=== PATIENT | male | born 1955 | race Caucasian/White ===

== ENCOUNTER 2020-06-14 19:30 | Emergency (ER) | payer BC, SELFPAY ==
[2020-06-14 19:31] VITALS: BP 174/102; PULSE 67; RESP 15; TEMP 36.3; O2SAT 97; BMI 29.2
--- NOTE | 2020-06-14 20:00 | ED.VIS.GEN ---
History of Present Illness Chief Complaint: Hypertension Informant: Patient, Significant Other Onset: Days - several Context: Gradual Onset Timing: Intermittent Quality: SBP 201 today Associated Symptoms: none Narrative: Patient has had a history of hypertension, and was on losartan. He was seen about 3 weeks ago at PCP, his pressure was elevated some, so losartan was increased to 100 mg daily. He has been compliant with that. This past week, he did some lifting and injured his low back, and was seen at an urgent care. They did x-rays, the states that they saw something that looked narrowed, so they placed him on prednisone and a muscle relaxer. He has had no sciatica symptoms or radiation into his lower extremities, or saddle anesthesia/urinary retention or incontinence/bowel retention or incontinence. His pressure was around normal for him when he was there at urgent care, a little elevated the next day, yesterday states she was at work and did not check it, and then today it was 201 systolic. They were advised by a telemedicine visit to come to the emergency room for further evaluation. He has had no new symptoms. - Past Medical History (1) Hypertension Status: Chronic Past Medical History - Allergies and Home Meds Allergies/Adverse Reactions: Allergies lisinopril Allergy (Verified 06/14/20 19:36) PT UNSURE OF REACTION Primary Care Physician: Manan Ricci III, MD [Primary Care Provider] - 2 Days Lives: With Family Smoking Status: Former smoker Review of Systems General: Denies: Chills, Fever, Sweats Eyes: Denies: Visual changes - bilaterally, Diplopia ENT: Denies: Rhinorrhea, Sore throat Cardiovascular: Denies: Chest pain, Palpitations Respiratory: Denies: Dyspnea, Cough, Dyspnea on exertion Gastrointestinal: Reports: Abdominal pain - Occasional right side discomfort/twisting for several weeks, intermittent, not present currently. Denies: Nausea, Vomiting, Diarrhea, Melena, Hematochezia Genitourinary: Reports: - - Normal urine output recently without any changes. Denies: Dysuria, Hematuria, Frequency Musculoskeletal: Reports: Back pain. Denies: Swelling, Extremity Pain Skin: Denies: Rash, Wounds Neurological: Denies: Headache, Weakness, Numbness Physical Exam Vital Signs/Narrative: Vital Signs Temp Pulse Resp BP Pulse Ox 06/14/20 19:31 97.4 F L 67 15 174/102 H 97 Inital Vital Signs reviewed: Yes General: Well nourished, Well developed, No Acute Distress Head: Normocephalic, Atraumatic Eyes: Perrl, EOMI ENT: Moist mucous membranes, No rhinorrhea Neck: Supple, Nontender Cardiovascular: Regular rate, Regular rhythm, No murmurs Respiratory: No distress, CTA bilaterally, Chest nontender Abdomen: Soft, Nontender, Nondistended, Normal bowel sounds Back: Normal Inspection, - - Tender right upper lumbar paraspinal musculature, normal range of motion but painful to flex forward. Negative for: Spinal tenderness Extremities: Nontender, No edema. Negative for: Calf Tenderness Skin: Normal color, No rash, No Trauma Neurological: Alert, Oriented x3, Cranial nerves II-XII grossly intact, Normal Strength, Normal Sensation, Normal Gait Psychological: Normal affect, Normal Mood Diagnostic/Tx/Re-eval - Medical Decision Making Patient does not have a history of renal issues, I do not think that he needs to have emergent testing given the history, he has had normal urine output, and I suspect his blood pressure is elevated as a side effect of 1 or more of the recent prescriptions he was given. I do not see an indication for prednisone in this patient given that he has had no symptoms of sciatica, and I recommended he discontinue it immediately since he is only been on it for a couple of days and can safely discontinue it. Seen with the [facility]. He is having no symptoms of muscle spasms in his back. He was initially taking Aleve, it was not helping much and he was getting more help from ibuprofen. He has no symptoms of cauda equina syndrome or sciatica. Here, he was given clonidine 0.2 mg, on reevaluation he is down to the 160s and still asymptomatic. I feel he can be sent home with an as needed prescription for clonidine, tramadol as needed for pain, and close outpatient follow-up with his PCP. Discussed at length with him and his and they are comfortable with this plan. ED Disposition - Plan for ED Patient: Disposition: Home or Assisted Living Diagnosis: Single episode of hypertension, Acute lumbar myofascial strain Instructions: ED Hypertension Established Prescriptions: Clonidine HCl 0.2 mg PO Q8H PRN #15 tab PRN Reason: SBP>175 Prescription Printed traMADol [Ultram] 50 mg PO Q4H PRN PRN #15 tab PRN Reason: pain Prescription Printed Referrals: Manan Ricci III, MD [Primary Care Provider] - 2 Days Additional Instructions: Discontinue the prednisone and Flexeril. You may continue using ibuprofen as needed, but limit your dosing to either 400 mg 3 times daily or 600 mg twice daily as needed.
[2020-06-14] MEDS: cloNIDine HCl 0.1 MG Tablet 0.2 MG PO (20:14)
[2020-06-14 21:30] VITALS: BP 171/96; PULSE 60; RESP 16; O2SAT 98
[2020-06-14 22:28] VITALS: BP 166/102; O2SAT 98
[2020-06-14 22:40] VITALS: BP 162/94; PULSE 76; RESP 16; O2SAT 97
[2020-06-14] MEDS: traMADol 50 MG Tablet PO (23:16)
[2020-06-14 23:20] VITALS: BP 162/98; PULSE 53; RESP 16; O2SAT 98
== END 2020-06-14 23:21 | disposition home or self-care (01) ==
LOC: ED 20:06
PROVIDERS: Emergency Provider Emergency Medicine; PCP Family Medicine
DX: I10 Essential (primary) hypertension (principal); S39.012D Strain of muscle, fascia and tendon of lower back, subsequent encounter; X50.9XXD Other and unspecified overexertion or strenuous movements or postures, subsequent encounter; Z87.891 Personal history of nicotine dependence; Z88.8 Allergy status to other drugs, medicaments and biological substances
CPT/HCPCS: 99283

== ENCOUNTER 2021-01-28 16:41 | Outpatient (RCR) | payer BC, SELFPAY ==
[2021-01-28] MEDS: COVID-19 VACC, MRNA(PFIZER)/PF 30 MCG/0.3 ML SYRINGE IM (18:10)
[2021-02-18] MEDS: COVID-19 VACC, MRNA(PFIZER)/PF 30 MCG/0.3 ML SYRINGE IM (17:16)
== END 2021-01-28 23:59 ==
LOC: IMMUN 16:41
PROVIDERS: PCP Family Medicine; Referring Provider Family Medicine; Visit Provider Family Medicine
DX: Z23 Encounter for immunization (principal)
CPT/HCPCS: 0001A; 0002A; 91300

== ENCOUNTER → 2021-04-21 09:01 | Outpatient (CLI) | payer MEDICARE, SELFPAY ==
[2021-04-21 10:26] LABS: Anion Gap 4 (5-15); BUN 17 mg/dL (7-18); BUN/Creat Ratio 12.1 RATIO (10-20); Calcium,Total 8.8 mg/dL (8.5-10.1); Chloride 106 mmol/L (98-107); Cholesterol 158 mg/dL (200); Creatinine, Serum 1.41 mg/dL (0.70-1.30); EST Glomerular Filtration Rate 53 mL/min (>60); Est Glom Filt Rate - Afr Amer 65 mL/min (>60); Glucose 112 mg/dL (74-106); High Density Lipoprotein 33 mg/dL; PSA,Total - Annual Screen 0.21 ng/mL (0.00-4.00); Potassium 4.4 mmol/L (3.5-5.1); Sodium Level 139 mmol/L (136-145); Triglycerides 249 mg/dL; Very Low Density Lipoprotein 50 mg/dL (5-40)
== END ==
PROVIDERS: PCP Family Medicine; Referring Provider Family Medicine; Visit Provider Family Medicine
DX: I10 Essential (primary) hypertension (principal)
CPT/HCPCS: 36415; 80048; 80061; 84153; G0103

== ENCOUNTER → 2021-08-11 15:36 | Outpatient (CLI) | payer BC, SELFPAY ==
--- NOTE | 2021-08-11 15:38 | RAD_ITS ---
STUDY: X-RAY - LEFT FOOT CLINICAL: Male, 65 years old. Pain and swelling TECHNIQUE: 3 view(s) of the foot. COMPARISON: None. FINDINGS: Normal talus and tarsal bones. Calcaneal spurs Normal visualized subtalar, talonavicular, calcaneocuboid, tarsal and tarsometatarsal articulations. Normal metatarsi. There is degenerative arthrosis of the metatarsophalangeal joint of the hallux . Normal tibial and fibular sesamoid bones. Normal interphalangeal joint of the great toe. Normal phalanges of the great toe. Normal second through fifth metatarsophalangeal joints. Mild PIP and PIP joint arthrosis The soft tissue structures are unremarkable. RAD/Foot min 3 Views IMPRESSION: Calcaneal spurs along with first MTP joint and PIP and DIP joint arthrosis, no demonstrated fracture or suspicious osseous lesion Electronically Signed: Bimal Raygoza MD at 12:12 EDT , Service support ,
== END ==
PROVIDERS: PCP Family Medicine; Referring Provider Podiatrist; Visit Provider Podiatrist
DX: M84.375A Stress fracture, left foot, initial encounter for fracture (principal)
CPT/HCPCS: 73630

== ENCOUNTER → 2021-10-13 09:47 | Outpatient (CLI) | payer MEDICARE, SELFPAY ==
[2021-10-13 13:03] LABS: ALB/GLOB Ratio 0.9 RATIO (0.9-2.4); AST(SGOT) 18 U/L (15-37); Alanine Aminotransfer ALT/SGPT 41 U/L (16-61); Albumin, Serum 3.9 g/dL (3.2-5.0); Alkaline Phosphatase 59 U/L (45-117); Anion Gap 5 (5-15); BUN 22 mg/dL (7-18); BUN/Creat Ratio 15.8 RATIO (10-20); Calcium,Total 9.2 mg/dL (8.5-10.1); Chloride 105 mmol/L (98-107); Cholesterol 121 mg/dL (200); Creatinine, Serum 1.39 mg/dL (0.70-1.30); EST Glomerular Filtration Rate 54 mL/min (>60); Est Glom Filt Rate - Afr Amer 66 mL/min (>60); Globulin 4.2 g/dL (2.2-4.2); Glucose 108 mg/dL (74-106); High Density Lipoprotein 31 mg/dL; Potassium 4.3 mmol/L (3.5-5.1); Protein, Total 8.1 g/dL (6.4-8.2); Sodium Level 137 mmol/L (136-145); Triglycerides 210 mg/dL; Very Low Density Lipoprotein 42 mg/dL (5-40)
== END ==
PROVIDERS: PCP Family Medicine; Referring Provider Family Medicine; Visit Provider Family Medicine
DX: E78.1 Pure hyperglyceridemia (principal); I10 Essential (primary) hypertension
CPT/HCPCS: 36415; 80053; 80061

== ENCOUNTER → 2022-04-26 | Outpatient (CLI) | payer MEDICARE, SELFPAY ==
[2022-04-26 12:41] LABS: Anion Gap 3 (5-15); BUN 19 mg/dL (7-18); BUN/Creat Ratio 13.9 RATIO (10-20); Calcium,Total 9.2 mg/dL (8.5-10.1); Chloride 110 mmol/L (98-107); Creatinine, Serum 1.37 mg/dL (0.70-1.30); EST Glomerular Filtration Rate 55 mL/min (>60); Est Glom Filt Rate - Afr Amer 67 mL/min (>60); Glucose 108 mg/dL (74-106); Potassium 4.5 mmol/L (3.5-5.1); Sodium Level 140 mmol/L (136-145)
== END | disposition home or self-care (01) ==
LOC: MTLAB 10:40
PROVIDERS: PCP Family Medicine; Referring Provider Family Medicine; Visit Provider Family Medicine
DX: Z00.00 Encounter for general adult medical examination without abnormal findings (principal)
CPT/HCPCS: 36415; 80048

== ENCOUNTER → 2022-10-26 | Outpatient (CLI) | payer MEDICARE, SELFPAY ==
[2022-10-26 11:00] LABS: ALB/GLOB Ratio 1.1 RATIO (0.9-2.4); AST(SGOT) 26 U/L (15-37); Alanine Aminotransfer ALT/SGPT 47 U/L (16-61); Alkaline Phosphatase 62 U/L (45-117); BUN 20 mg/dL (7-18); BUN/Creat Ratio 14.2 RATIO (10-20); Calcium,Total 9.2 mg/dL (8.5-10.1); Creatinine, Serum 1.41 mg/dL (0.70-1.30); EST Glomerular Filtration Rate 53 mL/min (>60); Est Glom Filt Rate - Afr Amer 64 mL/min (>60); Globulin 3.8 g/dL (2.2-4.2); Glucose 110 mg/dL (74-106); Protein, Total 7.8 g/dL (6.4-8.2)
[2022-10-26 11:01] LABS: Anion Gap 8 (5-15); Chloride 105 mmol/L (98-107); Cholesterol 156 mg/dL (200); High Density Lipoprotein 30 mg/dL; Potassium 4.7 mmol/L (3.5-5.1); Sodium Level 139 mmol/L (136-145); Triglycerides 302 mg/dL; Very Low Density Lipoprotein 60 mg/dL (5-40)
== END | disposition home or self-care (01) ==
LOC: MFPLAB 09:05
PROVIDERS: PCP Family Medicine; Referring Provider Family Medicine; Visit Provider Family Medicine
DX: E78.1 Pure hyperglyceridemia (principal)
CPT/HCPCS: 36415; 80053; 80061

== ENCOUNTER → 2023-05-01 | Outpatient (CLI) | payer MEDICARE, SELFPAY ==
[2023-05-01 11:11] LABS: AST(SGOT) 26 U/L (15-37); Alanine Aminotransfer ALT/SGPT 37 U/L (16-61); Albumin, Serum 3.8 g/dL (3.2-5.0); Alkaline Phosphatase 54 U/L (45-117); Anion Gap 2 (5-15); BUN 24 mg/dL (7-18); BUN/Creat Ratio 17.3 RATIO (10-20); Calcium,Total 8.7 mg/dL (8.5-10.1); Chloride 109 mmol/L (98-107); Cholesterol 116 mg/dL (200); Creatinine, Serum 1.39 mg/dL (0.70-1.30); EST Glomerular Filtration Rate 54 mL/min (>60); Est Glom Filt Rate - Afr Amer 65 mL/min (>60); Globulin 3.7 g/dL (2.2-4.2); Glucose 113 mg/dL (74-106); High Density Lipoprotein 30 mg/dL; PSA,Total - Annual Screen 0.23 ng/mL (0.00-4.00); Potassium 4.3 mmol/L (3.5-5.1); Protein, Total 7.5 g/dL (6.4-8.2); Sodium Level 137 mmol/L (136-145); Triglycerides 209 mg/dL; Very Low Density Lipoprotein 42 mg/dL (5-40)
== END | disposition home or self-care (01) ==
LOC: MTLAB 09:04
PROVIDERS: PCP Family Medicine; Referring Provider Family Medicine; Visit Provider Family Medicine
DX: I10 Essential (primary) hypertension (principal); E78.1 Pure hyperglyceridemia; Z12.5 Encounter for screening for malignant neoplasm of prostate
CPT/HCPCS: 36415; 80053; 80061; 84153; G0103

== ENCOUNTER 2023-09-05 23:47 | Emergency (ER) | payer MEDICARE, SELFPAY ==
[2023-09-05 23:49] VITALS: BP 150/78; PULSE 61; RESP 18; TEMP 36.4; O2SAT 98; BMI 29.8
[2023-09-06 00:18] VITALS: O2SAT 98
--- NOTE | 2023-09-06 00:18 | RAD_ITS ---
INDICATION: chest pain EXAMINATION/TECHNIQUE: X-RAY - XR Chest 1 View AP portable. 12:29 AM COMPARISON: None FINDINGS: LINES/DEVICES: None. LUNGS: No consolidation. Minimal reticular opacities in the lung bases. No pneumothorax. MEDIASTINUM: Unremarkable. CARDIAC SILHOUETTE: Not enlarged. BONES AND SOFT TISSUES: No acute abnormalities. RAD/Chest 1 View (Portable) IMPRESSION: Bibasilar subsegmental atelectasis versus scarring. Electronically Signed: Thalia Duenas MD at 0:41 EDT ,
--- NOTE | 2023-09-06 00:19 | EDS_ITS ---
HPI History of Present Illness Chief Complaint: Chest Pain Narrative Narrative: 67-year-old male past medical history of hypertension, smokes cigars, has family history of early coronary artery disease, also states he had a stress test 3 years ago that was negative, presents with chest pressure that he has had since this afternoon. He states his symptoms actually began as a headache and mild neck pain at around 3:30 in the afternoon, approximately 9 hours ago. He took ibuprofen and his symptoms improved, but after supper he developed anterior chest pain and pressure. He states that sometimes he gets this when he is mowing the lawn and exerts himself, but with rest it goes away. This evening, he had a meeting so he walked uptown, and experience more chest pressure. He denies any nausea or vomiting, no diaphoresis. He states there is somewhat of a pleuritic component to this and he feels short of breath and has more pressure when he tries to take a deep breath. He denies any leg swelling, no other symptoms. TAD Risk Factors: Positive for Hypertension and Family History PFSH PFSH Medical History Smoker Home Medications clonidine HCl 0.2 mg tablet 0.2 mg PO Q8H PRN SBP>175 #15 tabs 06/14/20 [Rx Last Taken Unknown] tramadol 50 mg tablet 50 mg PO Q4H PRN PRN pain #15 tabs 06/14/20 [Rx Last Taken Unknown] Allergy/AdvReac Type Severity Reaction Status Date / Time lisinopril Allergy PT UNSURE Verified 09/05/23 23:48 OF REACTION Social History Smoking Status: Current every day smoker tobacco type: cigars ROS ROS ED ROS Narrative Constitutional: No fever, no chills. No diaphoresis. HEENT: No sore throat. No neck pain. No loss of vision. No rhinorrhea. Cardiovascular: Positive chest pressure/chest pain. No palpitations. No pedal edema. Respiratory: No cough, positive shortness of breath. Questionably pleuritic. Abdominal: No abdominal pain. No nausea. No vomiting. Genitourinary: No dysuria. No hematuria. Musculoskeletal: No myalgias. No arthralgias. Neurologic: No headaches. No dizziness. No lightheadedness. Skin: No rash. No change in color. Psychiatric: No depression. No anxiety. EXAM Physical Exam Narrative Exam Narrative: Afebrile. Vital signs noted. HEENT: Normocephalic. Atraumatic. PERRL, EOMI. Neck soft and supple. No point tenderness or step off. Cardiovascular: Regular rate and rhythm. No murmurs, rubs, or gallops appreciated. Respiratory: No tachypnea. Lungs clear to auscultation bilaterally. Gastrointestinal: Abdomen soft, nontender, with normoactive bowel sounds. No rebound or guarding. Neurological: Awake. Alert. Nonfocal, nonlateralizing. Skin: No rash. Normal color. No pallor. Musculoskeletal: No pedal edema. Full range of motion extremities. Const Vital Signs: 09/05/23 23:49 09/06/23 00:15 09/06/23 00:18 Temperature 97.5 F L Temperature Source Temporal Pulse Rate 61 Respiratory Rate 18 Respiratory Effort Normal Non-Labored Blood Pressure 150/78 H Blood Pressure Mean 102 Pulse Ox 98 98 Oxygen Delivery Method Room Air 09/06/23 01:18 09/06/23 02:00 Temperature Temperature Source Pulse Rate 56 L 64 Respiratory Rate 14 19 H Respiratory Effort Blood Pressure 137/75 H 158/87 H Blood Pressure Mean 95 110 Pulse Ox 96 98 Oxygen Delivery Method Room Air Room Air MDM MDM MDM Narrative Medical decision making narrative: In the differential diagnosis would be acute coronary syndrome/cardiac ischemia versus pulmonary embolism versus aortic dissection. I have lower suspicion for aortic dissection because he has equal pulses, he has no tearing back pain, and his blood pressure seems appropriate in the ED. Chest pain work-up was pursued including serial troponins, EKG, and chest x-ray. I will also obtain a D-dimer to help rule out pulmonary embolism. EKG was obtained and interpreted by myself independently as sinus bradycardia at 58 bpm without ectopy or acute ST changes. He does have T wave inversion in 3 and aVF which I think is nonspecific. I reviewed his laboratory work, and he has normal white count of 7.5, hemoglobin normal at 13.4, platelet count slightly low at 120. This appears to be a chronic thrombocytopenia when compared to prior laboratory work. His BUN is elevated at 24 and his creatinine is just above his baseline at 1.46, it has been 1.41 in the past. Glucose appropriately elevated at 120 with a low anion gap at 2. Initial high-sensitivity troponin is 38 and normal. His D-dimer is also normal at 0.40. I have low suspicion for aortic dissection or pulmonary embolism and I do not feel CTA is currently indicated. He was administered a full strength aspirin, and chest x-ray in 1 view was interpreted by myself independently as no acute process, no pneumonia or pneumothorax. I reviewed the radiology report which confirms my independent interpretation and also comments on bibasilar atelectasis. In discussion with the patient and his , he had asthma as a child and he has seasonal allergies. As long as his second troponin is negative, I feel he could be discharged safely home to follow-up with his primary care physician with referral to either cardiology or pulmonology as needed. Smoking cessation was discussed. His repeat troponin has returned. It is also normal at 39. His delta is only 2. This point time, I do not feel he requires observation. I feel he can be discharged safely home with follow-up to his primary care provider. His blood pressure is fluctuating but he remains asymptomatic with it. He states he usually takes his losartan at around 6 or 6:30 in the morning, and adjust so happens that we have him on the monitor which may be the reason why it is creeping up. Once again, I have low suspicion for cardiac ischemia given his negative troponins and I feel he has been ruled out with biomarkers. He has negative D-dimer, and he has a normal pulse ox 98% on room air. He will follow- up with his primary care provider. Return instructions to the emergency department were reviewed. Disposition is discharged home in stable condition. History & Record Review Discussion w/independent historian: Patient and Family Additional record(s) reviewed:: Prior ED visit and Prior labs Lab Data Attestation: I reviewed the patient's lab results. Labs: Laboratory Results - last 24 hr 09/06/23 09/06/23 00:24 02:28 WBC 7.5 RBC 4.41 L Hgb 13.4 Hct 41.8 MCV 94.8 H MCH 30.4 MCHC 32.1 RDW Std Deviation 48.8 H RDW Coeff of Kushal 14.0 Plt Count 120 L MPV 10.2 Immature Gran % (Auto) 0.300 Neut % (Auto) 63.5 Lymph % (Auto) 25.3 Gregory % (Auto) 7.1 Eos % (Auto) 3.5 Baso % (Auto) 0.3 Absolute Neuts (auto) 4.8 Absolute Lymphs (auto) 1.90 Nucleated RBC % 0 D-Dimer Quant (PE/DVT) 0.40 Sodium 138 Potassium 4.2 Chloride 109 H Carbon Dioxide 27.0 Anion Gap 2 L BUN 24 H Creatinine 1.46 H Estim Creat Clear Calc 53.15 Est GFR (MDRD) Af Amer 62 Est GFR (MDRD) Non-Af 51 L BUN/Creatinine Ratio 16.4 Glucose 120 H Calcium 8.7 Troponin I High Sens 37 39 Radiography Diagnostic Testing: Clinical Impression(s) from Imaging Studies Chest X-Ray 09/06/23 00:18 IMPRESSION: Bibasilar subsegmental atelectasis versus scarring. Electronically Signed: Thalia Duenas MD at 0:41 EDT , Discharge Plan Triage Chief Complaint: Chest Pain ED Provider: Heath Villalpando Dx/Rx/DC Orders Clinical Impression: Chest pain, Hypertension Instructions: ED Chest Pain, Uncertain Cause Prescriptions: No Action tramadol 50 MG tablet 50 mg PO Q4H PRN PRN (Reason: pain) Qty: 15 0RF clonidine HCl 0.2 MG tablet 0.2 mg PO Q8H PRN (Reason: SBP>175) Qty: 15 0RF Primary Care Provider: Juan Sousa Referrals: Juan Sousa MD [Primary Care Provider] - 5-7 Days Activity Restrictions/Additional Instructions: Return with increased pain, new or worsening symptoms including shortness of breath. Keep a log of your blood pressures for your primary care provider. Try to take it at the same time every day. Disposition Disposition: Home, Self Care
--- NOTE | 2023-09-06 00:30 | EKG12_ITS ---
Test Reason : CP Blood Pressure : / mmHG Vent. Rate : 058 BPM Atrial Rate : 058 BPM P-R Int : 204 ms QRS Dur : 100 ms QT Int : 428 ms P-R-T Axes : 041 -13 -25 degrees QTc Int : 420 ms Sinus bradycardia Possible Left atrial enlargement Minimal voltage criteria for LVH, may be normal variant ( Claridge product ) Inferior infarct , age undetermined Abnormal ECG Confirmed by SPENCER GRANADOS, LEW ([id number]), publication editor JUAN MIGUEL EDWARDS ([id number]) on 09/11/2023 2:07:33 PM Referred By: EM Confirmed By:LEW PALMER MD
[2023-09-06 00:32] LABS: Absolute Neutrophil Count 4.8 X10^3/uL (2.0-7.7); Basophil# 0.02 X10^3/uL; Basophil% 0.3 % (0-1); Eosinophil# 0.26 X10^3/uL; Eosinophils% 3.5 % (0-5); Hematocrit 41.8 % (40-54); Hemoglobin 13.4 g/dL (13.0-16.5); Lymphocyte % 25.3 % (19-41); Mean Corp Hgb Conc 32.1 g/dL (32-36); Mean Corpuscular Hgb 30.4 pg (27.0-32.0); Mean Corpuscular Volume 94.8 fL (80-94); Mean Platelet Vol. 10.2 fl (6.2-12.0); Monocyte# 0.53 X10^3/uL; Monocyte% 7.1 % (0-10); NRBC Flagged by Analyzer 0 % (0-5); Neutrophil # 4.78 X10^3/uL (2.7-7.7); Neutrophil % 63.5 % (47-70); Platelet Count 120 K/mm3 (150-450); RBC Distribution Width SD 48.8 fl (35.1-43.9); Red Blood Count 4.41 M/mm3 (4.6-6.2); White Blood Count 7.5 K/mm3 (4.4-11.0)
[2023-09-06] MEDS: Aspirin 81 MG TAB.CHEW 324 MG PO (00:43)
[2023-09-06 00:49] LABS: Anion Gap 2 (5-15); BUN 24 mg/dL (7-18); BUN/Creat Ratio 16.4 RATIO (10-20); Calcium,Total 8.7 mg/dL (8.5-10.1); Chloride 109 mmol/L (98-107); Creatinine, Serum 1.46 mg/dL (0.70-1.30); EST Glomerular Filtration Rate 51 mL/min (>60); Est Glom Filt Rate - Afr Amer 62 mL/min (>60); Estimated Creatinine Clearance 53.15 ml/min; Glucose 120 mg/dL (74-106); Potassium 4.2 mmol/L (3.5-5.1); Sodium Level 138 mmol/L (136-145); Troponin-I HS (w/2H Reflex) 37 pg/mL (3.0-78.0)
[2023-09-06 01:18] VITALS: BP 137/75; PULSE 56; RESP 14; O2SAT 96
[2023-09-06 02:00] VITALS: BP 158/87; PULSE 64; RESP 19; O2SAT 98
[2023-09-06 02:29] LABS: Reflex Troponin-HS? (from REC) Y
[2023-09-06 02:51] LABS: Troponin-I HS 39 pg/mL (3.0-78.0)
[2023-09-06 03:14] VITALS: BP 162/92; PULSE 64; RESP 16; O2SAT 99
== END 2023-09-06 03:15 | disposition home or self-care (01) ==
PROVIDERS: Emergency Provider Emergency Medicine; PCP Family Medicine; Visit Provider Emergency Medicine
DX: R07.9 Chest pain, unspecified (principal); R00.1 Bradycardia, unspecified; I10 Essential (primary) hypertension; J98.11 Atelectasis; F17.210 Nicotine dependence, cigarettes, uncomplicated; Z82.49 Family history of ischemic heart disease and other diseases of the circulatory system
CPT/HCPCS: 71045; 80048; 84484; 85025; 85379; 93005; 99284; A4216

== ENCOUNTER 2023-09-27 13:52 | Inpatient (IN) | payer MEDICARE, SELFPAY ==
[2023-09-27 13:53] VITALS: BP 160/102; PULSE 65; RESP 20; TEMP 36.4; O2SAT 97; BMI 30.3
[2023-09-27] MEDS: Aspirin 81 MG TAB.CHEW 324 MG PO (13:56)
--- NOTE | 2023-09-27 13:59 | EKG12_ITS ---
Test Reason : Blood Pressure : / mmHG Vent. Rate : 065 BPM Atrial Rate : 065 BPM P-R Int : 188 ms QRS Dur : 098 ms QT Int : 394 ms P-R-T Axes : 036 -09 -24 degrees QTc Int : 409 ms Normal sinus rhythm Inferior infarct (cited on or before 05-SEP-2023) Abnormal ECG Confirmed by RADHA GRANADOS, RAOUL ([id number]), editor greeting card DEREK BROUSSARD ([id number]) on 10/09/2023 7:57:59 AM Referred By: MONCHO Confirmed By:ASHLEE GARCIA MD
--- NOTE | 2023-09-27 14:00 | ED.VIS.CHEST ---
HPI History of Present Illness Chief Complaint: Chest Pain Detail of Chief Complaint: Chest comfort and dyspnea with activity Informant: patient, spouse/S.O. and other (Line Runner Dr. Nicolas) Onset/Context/Timing Onset: Weeks Activity at onset: sudden and exertion Timing: Intermittent Quality: Positive for Pressure Location: Substernal Current Severity: Gone Maximum Severity: Moderate Worsened By: Exertion Relieved By: Rest Associated Symptoms: Positive for Dyspnea; Negative for Nausea, Vomiting, Diaphoresis, Cough, Fever, Lightheadedness or Acid Reflux Narrative Narrative: Patient is a 67-year-old male who is a smoker. Does have history of hypertension and hyper triglyceridemia. He had a outpatient stress test. The stress test revealed inducible ischemic changes in the inferior leads. There was ST elevation per Dr. Nicolas. He contact the patient return to the emergency department since he left prior to the stress test being read. Presently patient denies shortness of breath or dyspnea. He states has been going on for weeks. He was seen on September 06. His troponins were negative. He predominately had dyspnea as his symptom. There is a strong family history cardiac disease. He states he will quit smoking today. He denies leg pain, swelling discoloration. He has history of VTE. Prior Similar Symptoms: Yes Recent Illness/Hospitalization: Yes CVD Risk Factors: Positive for Hypertension, Hypercholesterolemia, Family History 1' </=55 and Smoking; Negative for Diabetes PE Risk Factors: Negative for Recent Travel/Surgery, Recent Immobilization, Prior DVT or PE, Cancer or OCP + Smoking + >/=35 TAD Risk Factors: Positive for Hypertension; Negative for Marfan's Syndrome or Family History PFSH PFSH Medical History Smoker Home Medications clonidine HCl 0.2 mg tablet 0.2 mg PO Q8H PRN SBP>175 #15 tabs 06/14/20 [Rx Last Taken Unknown] tramadol 50 mg tablet 50 mg PO Q4H PRN PRN pain #15 tabs 06/14/20 [Rx Last Taken Unknown] losartan 100 mg-hydrochlorothiazide 12.5 mg tablet 1 tab PO DAILY 09/27/23 [History Last Taken 09/27/23] Allergy/AdvReac Type Severity Reaction Status Date / Time lisinopril Allergy PT UNSURE Verified 09/05/23 23:48 OF REACTION Social History (Updated 09/27/23 @ 14:[address] Toney Hoang MD) household members: spouse Smoking Status: Current every day smoker tobacco type: cigarettes and cigars substance use type: does not use ROS ROS ED Constitutional Constitutional ED: Denies chills, fever(s) or subjective Eyes Eyes: Reports none ENT ENT ED: Denies ear pain or rhinorrhea Cardiovascular Cardiovascular: Reports as per HPI; Denies orthopnea or paroxysmal nocturnal dyspnea Respiratory/Chest Respiratory/Chest: Reports dyspnea and dyspnea on exertion; Denies cough, orthopnea or paroxysmal nocturnal dyspnea Gastrointestinal Gastrointestinal: Denies abdominal pain, nausea or vomiting Genitourinary Genitourinary ED: Denies dysuria, hematuria or urinary frequency Musculoskeletal Musculoskeletal: Denies arthralgias or myalgias Integumentary Denies rash Neurologic Neurologic: Denies headache(s), paresthesias or weakness Hematologic/Lymphatic Hematologic/Lymphatic: Denies easy bleeding or easy bruising EXAM Physical Exam Const Vital Signs: 09/27/23 13:53 09/27/23 13:57 Temperature 97.5 F L Temperature Source Temporal Pulse Rate 65 Respiratory Rate 20 H Respiratory Effort Normal Non-Labored Blood Pressure 160/102 H Blood Pressure Mean 121 Pulse Ox 97 Oxygen Delivery Method Room Air Positive well nourished and well developed General Appearance ED: well developed and NAD HEENT Reports TM's clear and moist mucous membranes normocephalic Tympanic Membrane ED: Yes TM's clear Eyes PERRL and EOMs intact bilaterally General Eye ED: Negative for pale conjunctiva or scleral icterus Neck no lymphadenopathy, supple and no JVD Chest Wall inspection of chest normal and palpation of chest normal Resp normal respiratory effort and clear to auscultation bilaterally Cardio regular rate, regular rhythm, S1 normal heart sound, S2 normal heart sound and no murmurs Peripheral Pulses: pulses 2+ throughout GI normal to inspection, nondistended, normoactive bowel sounds, soft to palpation, non-tender, non-distended and no masses; Negative for hepatosplenomegaly Back/Spine no CVA tenderness and no thoracic nor lumbar tenderness Extremity normal to inspection Extremity Narrative: Patient does have hair on his toes. General Extremety ED: Negative for edema, pulses abnormal or tenderness General Extremity: Negative for edema or pulses abnormal Neuro oriented x3, CN's II-XII intact bilaterally, no sensory deficits noted and gait normal Sensorium / Orientation: awake and alert Motor Exam: strength 5/5 throughout Psych mental status grossly normal Skin no rashes or lesions noted and no wounds Heart Score History: Highly Suspicious ECG: Nonspecific Repolarization Age: >/= 65 years Risk Factors: >/= 3 Risk Factors or History of CAD Score: 7 MDM MDM MDM Narrative Medical decision making narrative: Patient has dyspnea with exertion and discomfort. His symptoms resolved with rest. He had an outpatient stress test today which revealed revealed reducible ischemic changes inferior leads. He did have ST elevation. Discussed with cardiology prior to arrival. Plan is aspirin, heparin admit and cardiac catheterization in the morning. Rhythm Strip Rhythm Strip: Sinus Rhythm Rate: 65 Ectopy: None EKG Initial EKG: Attestation: I personally reviewed and interpreted this EKG as follows: Interpretation: Sinus Rhythm (Normal sinus rhythm rate of 65. There is ST changes in the inferior leads that coincides with the abnormal stress test.) Management Discussion w/another healthcare provider: Hospitalist (With hospitalist who was made aware of plan per cardiology.) and Personal Banker (Line Runner as documented in the HPI narrative) Critical Care Time Critical Care Time: Yes Critical care time (excluding procedures): 30-74 minutes (15 minutes), Including time spent: (History, physical, documentation, discussion with hospitalist and permanent waver), Discussing w/Patient &/or Family/Repatcher, Discussing w/Consultants and Arranging Admission or Transfer Discharge Plan Triage Chief Complaint: Chest Pain ED Provider: Toney Hoang Dx/Rx/DC Orders Clinical Impression: High triglycerides, ACS (acute coronary syndrome), Tobacco use, Hypertension Prescriptions: No Action tramadol 50 MG tablet 50 mg PO Q4H PRN PRN (Reason: pain) Qty: 15 0RF clonidine HCl 0.2 MG tablet 0.2 mg PO Q8H PRN (Reason: SBP>175) Qty: 15 0RF losartan-hydrochlorothiazide 100-12.5 mg tablet 1 tab PO DAILY Primary Care Provider: Juan Sousa Referrals: Juan Sousa MD [Primary Care Provider] - Disposition Disposition: Acute Care Hospital [facility]
[2023-09-27 14:01] VITALS: O2SAT 97
--- NOTE | 2023-09-27 14:04 | RAD_ITS ---
STUDY: X-RAY CHEST REASON FOR EXAM: Male, 67 years old. Chest pain TECHNIQUE: Single AP portable view of the chest. COMPARISON: Comparison is made with prior study dated September 06, 2023. FINDINGS: EKG electrodes are seen. Mild increased linear markings at the left lung base suggestive of left basilar atelectasis. There is no demonstrated pleural abnormality. Normal size heart. Normal mediastinum and barrington. Normal visualized pulmonary arteries. There is atherosclerotic tortuosity of the aortic arch and descending thoracic aorta. There are diffuse degenerative changes of the visualized thoracic spine. Normal visualized ribs, clavicles, and shoulders. There is no demonstrated abnormality of the visualized soft tissue structures of the upper abdomen. RAD/Chest 1 View (Portable) IMPRESSION: Mild increased linear markings at the left lung base suggestive of atelectasis. Electronically Signed: Amado Wright MD at 14:32 EDT ,
[2023-09-27 14:14] LABS: Absolute Lymphocyte Count 2.43 X10^3/uL (0.83-4.51); Absolute Neutrophil Count 4.3 X10^3/uL (2.0-7.7); Basophil# 0.02 X10^3/uL; Basophil% 0.3 % (0-1); Eosinophil# 0.23 X10^3/uL; Hematocrit 46.8 % (40-54); Hemoglobin 15.3 g/dL (13.0-16.5); Lymphocyte # 2.43 X10^3/ul (0.83-4.51); Lymphocyte % 32.1 % (19-41); Mean Corp Hgb Conc 32.7 g/dL (32-36); Mean Corpuscular Hgb 30.2 pg (27.0-32.0); Mean Corpuscular Volume 92.5 fL (80-94); Mean Platelet Vol. 10.5 fl (6.2-12.0); Monocyte# 0.58 X10^3/uL; Monocyte% 7.7 % (0-10); NRBC Flagged by Analyzer 0 % (0-5); Neutrophil # 4.28 X10^3/uL (2.7-7.7); Neutrophil % 56.6 % (47-70); Platelet Count 162 K/mm3 (150-450); RBC Distribution Width CV 13.7 % (11.6-14.6); RBC Distribution Width SD 46.8 fl (35.1-43.9); Red Blood Count 5.06 M/mm3 (4.6-6.2); White Blood Count 7.6 K/mm3 (4.4-11.0)
[2023-09-27] MEDS: Heparin Injection (Vial) 5,000 UNIT/ML VIAL 4000 UNIT IV (14:24)
[2023-09-27 14:25] LABS: Anion Gap 5 (5-15); BUN 20 mg/dL (7-18); BUN/Creat Ratio 13.2 RATIO (10-20); Calcium,Total 9.1 mg/dL (8.5-10.1); Chloride 106 mmol/L (98-107); Creatinine, Serum 1.52 mg/dL (0.70-1.30); EST Glomerular Filtration Rate 49 mL/min (>60); Est Glom Filt Rate - Afr Amer 59 mL/min (>60); Estimated Creatinine Clearance 51.05 ml/min; Glucose 114 mg/dL (74-106); Potassium 4.1 mmol/L (3.5-5.1); Sodium Level 141 mmol/L (136-145); Troponin-I HS (w/2H Reflex) 20 pg/mL (3.0-78.0)
[2023-09-27] MEDS: HEPARIN/D5w 25,000 UNITS 25,000 UNITS/250 ML IV.SOLN. 10 UNITS CONT INF (14:25)
[2023-09-27 14:34] LABS: International Normalized Ratio 1.1; Prothrombin Time (Protime)PT. 14.1 SECONDS (11.7-14.9)
[2023-09-27 14:35] LABS: Partial Thromboplast Time 31.2 Seconds (24.1-36.2)
[2023-09-27 15:22] VITALS: BMI 29.7
--- NOTE | 2023-09-27 15:46 | HP.PCM.HOS_ITS ---
HPI - General General Date of Admission: 09/27/23 Date of Service: 09/27/23 Chief Complaint: Abnormal cardiac stress test, chest pain HPI Narrative JADON MADDOX, is a 67 M who presents to the emergency room at [facility], he underwent a stress test today that was positive for reversible ischemia, he was asked to come back to the ER for evaluation. Patient has been having episodic upper chest pain over the last several months, he describes this as a pressure discomfort, he also gets short of breath at times. He was seen in the emergency room September 05, 2023 and evaluated and sent home to follow-up with his PCP, his PCP ordered an outpatient stress test which was performed today and was abnormal, the patient had already left the hospital he was called back for evaluation. Evaluation in the ER included an EKG which showed T wave inversions in 3 and aVF, these were present on a previous EKG on September 05, 2023. Chest x-ray was negative except for markings at the left lung base suggestive of atelectasis, patient CBC was unremarkable, chemistry panel was abnormal for creatinine 1.52 and a BUN of 20 Cardiology was contacted, they advised placing the patient on a heparin drip and admitting to the hospital for a cardiac catheterization tomorrow. Patient will be admitted to PCU, heparin drip will be continued, he was placed on a beta- edinson, aspirin, and Lipitor. PFSH Medical History Smoker Home Medications clonidine HCl 0.2 mg tablet 0.2 mg PO Q8H PRN SBP>175 #15 tabs 06/14/20 [Rx Last Taken Unknown] tramadol 50 mg tablet 50 mg PO Q4H PRN PRN pain #15 tabs 06/14/20 [Rx Last Taken Unknown] losartan 100 mg-hydrochlorothiazide 12.5 mg tablet 1 tab PO DAILY 09/27/23 [History Last Taken 09/27/23] Allergy/AdvReac Type Severity Reaction Status Date / Time lisinopril Allergy PT UNSURE Verified 09/05/23 23:48 OF REACTION Social History (Updated 09/27/23 @ 14:[address] Toney Hoang MD) household members: spouse Smoking Status: Current every day smoker tobacco type: cigarettes and cigars substance use type: does not use ROS Constitutional Constitutional: Denies anorexia, change in weight, chills, fatigue, fever(s), night sweats or weakness Eyes Eyes: Denies blurry vision, change in vision, discharge from eye(s) or eye pain Cardiovascular Cardiovascular: Reports chest pain; Denies claudication, edema or palpitations Respiratory/Chest Respiratory/Chest: Reports dyspnea; Denies cough, hemoptysis, shortness of breath at rest or shortness of breath with exertion Gastrointestinal Gastrointestinal: Denies abdominal pain, constipation, diarrhea, hematemesis, hematochezia, melena, nausea or vomiting Genitourinary Genitourinary: Denies dysuria, hematuria, urinary frequency, urinary hesitancy, urinary incontinence or urinary urgency Musculoskeletal Musculoskeletal: Denies back pain, joint pain, joint stiffness, joint swelling, myalgias or neck pain Neurologic Neurologic: Denies abnormal gait, abnormal speech, dizziness, focal weakness, headache(s), loss of vision, numbness, other visual disturbances, paresthesias, syncope or tingling Psychiatric Psychiatric: Denies anxiety, cognitive impairment, depression, irritability, mood swings or suicidal ideation Endocrine Endocrinology: Denies change in body appearance, cold intolerance, excessive sweating, heat intolerance, polydipsia or polyuria Hematologic/Lymphatic Hematologic/Lymphatic: Denies none, anemia, easy bleeding, easy bruising or lymphadenopathy Allergic/Immunologic Allergic/Immunologic: Denies rhinitis, urticaria, eczemia or asthma Vital Signs Vital Signs Vital Signs: 09/27/23 13:53 09/27/23 13:57 09/27/23 14:01 Temperature 97.5 F L Temperature Source Temporal Pulse Rate 65 Respiratory Rate 20 H Respiratory Effort Normal Non-Labored Blood Pressure 160/102 H Blood Pressure Mean 121 Pulse Ox 97 97 Oxygen Delivery Method Room Air Room Air Weight Weight: 101.4 kg Body Mass Index (BMI) 30.3 Physical Exam Const alert, oriented x3, no apparent distress, average body habitus and healthy appearing General Appearance: cooperative, well kempt and well developed Orientation / Consciousness: awake, oriented to person, oriented to place and oriented to time HEENT normocephalic, head/scalp atraumatic, hearing grossly normal bilaterally and moist oral mucous membranes Eyes PERRL, EOMs intact bilaterally and conjunctivae normal Neck supple, no JVD, thyroid normal and no carotid bruits General: trachea midline Resp normal respiratory effort, no retractions, no use of accessory muscles and clear to auscultation bilaterally Auscultation: Negative for rales, rhonchi or wheezes Cardio regular rate, regular rhythm, S1 normal heart sound, S2 normal heart sound, no murmurs, no rub and no gallops GI normal to inspection, nondistended, normoactive bowel sounds, soft to palpation, non-tender and non-distended Extremity no clubbing, cyanosis or edema Skin no rashes or lesions noted General Skin Exam: no breakdown Neuro oriented x3, CN's II-XII intact bilaterally, moves all extremities, no focal motor deficits and no sensory deficits noted Sensorium / Orientation: awake and alert Speech: speech normal Psych affect normal Results Lab / Micro Data 09/27/23 13:55 09/27/23 13:55 Labs: Laboratory Results - last 24 hr 09/27/23 13:55: WBC 7.6, RBC 5.06, Hgb 15.3, Hct 46.8, MCV 92.5, MCH 30.2, MCHC 32.7, RDW Std Deviation 46.8 H, RDW Coeff of Kushal 13.7, Plt Count 162, MPV 10.5, Immature Gran % (Auto) 0.300, Neut % (Auto) 56.6, Lymph % (Auto) 32.1, [place] % (Auto) 7.7, Eos % (Auto) 3.0, Baso % (Auto) 0.3, Absolute Neuts (auto) 4.3, Absolute Lymphs (auto) 2.43, Nucleated RBC % 0, PT 14.1, INR 1.1, APTT 31.2, Sodium 141, Potassium 4.1, Chloride 106, Carbon Dioxide 30.0, Anion Gap 5, BUN 20 H, Creatinine 1.52 H, Estim Creat Clear Calc 51.05, Est GFR (MDRD) Af Amer 59 L, Est GFR (MDRD) Non-Af 49 L, BUN/Creatinine Ratio 13.2, Glucose 114 H, Calcium 9.1, Troponin I High Sens 20 Rhythm Strip Rhythm Strip: Sinus Rhythm Rate: 65 Ectopy: None Radiology Impression Chest X-Ray 09/27/23 14:04 IMPRESSION: Mild increased linear markings at the left lung base suggestive of atelectasis. Electronically Signed: Amado Wright MD at 14:32 EDT , Assessment & Plan Assessment/Plan (1) Unstable angina: PLAN: Plan 1. Unstable angina-patient will be admitted to PCU, he will remain on a heparin drip, again he will be placed on a beta-edinson, aspirin, and a statin, he will be seen in consultation by cardiology and hopefully undergo catheterization tomorrow. #2 chronic kidney disease stage IIIa-etiology unclear, possibly secondary to hypertension-patient has had an elevated creatinine for quite some time, he does take hypertensive medications. I have elected to place the patient on some IV fluid overnight and repeat his BMP tomorrow. #3 essential hypertension-patient will remain on his current medication, I have added a beta-edinson and hopefully this will provide some control of his blood pressure Total clinical time spent by myself addressing the patient's medical issues, reviewing all of his data, and collaborating with patient's care team: 55 min Charges/Coding Visit Charges Inpatient E&M: 39792 Init Hosp L2
--- NOTE | 2023-09-27 15:52 | CASEMGMT ---
Tertiary facilities in-network with patient's insurance: [facility], [facility], [facility], , [facility], [facility]
[2023-09-27 16:00] VITALS: BP 151/85; PULSE 62; RESP 16; TEMP 36.2; O2SAT 98
[2023-09-27 16:05] LABS: Reflex Troponin-HS? (from REC) Y
[2023-09-27 17:19] LABS: Troponin-I HS 18 pg/mL (3.0-78.0)
[2023-09-27] MEDS: 0.9% Normal Saline (1000mL) 1,000 ML 75 ML IV (17:50)
[2023-09-27] MEDS: Carvedilol 6.25 MG Tablet PO ×2 (17:50→22:05)
[2023-09-27 21:32] LABS: Partial Thromboplast Time 69.8 Seconds (24.1-36.2)
[2023-09-27 22:00] VITALS: BP 158/91; PULSE 62; RESP 16; TEMP 36.6; O2SAT 98
[2023-09-28] VITALS (12 sets, daily range): BP systolic 129–148; BP diastolic 72–95; PULSE 53–66; RESP 15–18; TEMP 36.1–36.6; O2SAT 96–100
[2023-09-28 04:23] LABS: Partial Thromboplast Time 56.4 Seconds (24.1-36.2)
[2023-09-28 04:27] LABS: Anion Gap 4 (5-15); BUN 21 mg/dL (7-18); BUN/Creat Ratio 16.4 RATIO (10-20); Calcium,Total 8.4 mg/dL (8.5-10.1); Chloride 111 mmol/L (98-107); Creatinine, Serum 1.28 mg/dL (0.70-1.30); EST Glomerular Filtration Rate 59 mL/min (>60); Est Glom Filt Rate - Afr Amer 72 mL/min (>60); Estimated Creatinine Clearance 60.63 ml/min; Glucose 122 mg/dL (74-106); Sodium Level 139 mmol/L (136-145)
[2023-09-28] MEDS: Losartan Potassium 100 MG Tablet PO (05:11)
[2023-09-28] MEDS: Carvedilol 6.25 MG Tablet PO ×2 (05:11→20:55)
[2023-09-28] MEDS: Aspirin E.C. 81 MG Tablet PO (05:11)
--- NOTE | 2023-09-28 05:55 | EKG12_ITS ---
Test Reason : AM EKG Blood Pressure : / mmHG Vent. Rate : 060 BPM Atrial Rate : 060 BPM P-R Int : 198 ms QRS Dur : 100 ms QT Int : 428 ms P-R-T Axes : 044 -18 -11 degrees QTc Int : 428 ms Normal sinus rhythm Possible Left atrial enlargement Left ventricular hypertrophy ( R in aVL , Sánchez product ) Inferior infarct , age undetermined Abnormal ECG When compared with ECG of 27-SEP-2023 13:55, MANUAL COMPARISON REQUIRED, DATA IS UNCONFIRMED Confirmed by RADHA GRANADOS, RAOUL ([id number]), fashion editor ADÁN MORRIS ([id number]) on 10/09/2023 11:11:53 AM Referred By: Confirmed By:ASHLEE GARCIA MD
--- NOTE | 2023-09-28 06:38 | NURSING ---
paged cardiology re need stop time for heparin gtt for heart cath this am. awaiting response.
[2023-09-28] MEDS: 0.9% Normal Saline (1000mL) 1,000 ML 75 ML IV (09:17)
--- NOTE | 2023-09-28 10:15 | CASEMGMT ---
RN?CM?DIRECTOR OF CONTRACTS?CM?to room to meet with patient for initial transition planning/care coordination?assessment.?RN?CM?introduced self and role at [facility].? Pt voices understanding and consents to?assessment?at this time.? Pt resting in bed in no distress at this time.? @ bedside. Pt is A/O at this time and answers all questions appropriately.?? Care providers, pharmacy, and demographics verified/updated at this time. PCP: Dr Sousa Specialists: Dr Escobar/ENT. Furnace Checker. Preferred Pharmacy: [facility] @ discharge. Insurance: [place] [facility] Prescription Benefit:?Yes Living Will/HPOA: Pt does not currently have LW/HCPOA and declines info at this time.? Pt made aware that he can contact as an out-pt and make appt in the future if he decides he would like to talk with someone about this or would like to utilize [facility] social work for advanced directive completion.?? LNOK: , Monica. Son and daughter. Living Arrangements: Lives w/ in one-story home w/5 steps to enter. Independent. Transportation:?Pt states drives self and states no transportation concerns at this time.? also drives. DME: States has a CPAP through [employer]. Pt states no need for further DME at this time.? HHC/SNF: No hx of either. No needs identified. Pt wishes to return home and states has no concerns with going home at time of discharge.? CM?to follow for any discharge planning/needs.? Pt voices no concerns/needs at this time.? Advised pt to ask for?CM?if any further questions/concerns/needs arise.? Voices understanding. PLAN:??Home Matteo CARTYN?RN?CM
[2023-09-28 10:41] LABS: Partial Thromboplast Time 50.2 Seconds (24.1-36.2)
[2023-09-28] MEDS: hydroCHLOROthiazide 12.5mg 12.5 MG PO (11:50)
[2023-09-28] MEDS: Flu Vacc QS2023-24(65YR UP)/PF 240 MCG/0.7 ML Syringe IM (12:14)
--- NOTE | 2023-09-28 12:15 | CON.PCM.CA_ITS ---
Assessment & Plan Assessment/Plan (1) Unstable angina: PLAN: Coronary angiography revealed disease as described in the HPI. Patient is being transferred to [facility] for possible CABG. Continue aspirin, beta- edinson, statin. 2 hours after right radial access site hemostasis, heparin can be restarted. HPI Consult Data Date of Consult: 09/28/23 HPI Narrative Reason for Consultation: CP, abnormal stress test HPI Narrative: JADON MADDOX, is a 67 M who presents after a significantly abnormal stress test. He underwent coronary angiography which revealed significant stenoses in the LAD and an occluded large dominant RCA that is predominantly supplied by collaterals from the LAD. There are also bridging collaterals to the distal RCA. Patient is currently asymptomatic. He is being transferred to a tertiary facility for heart team approach to revascularization and possible CABG. PFSH Medical History Smoker Home Medications clonidine HCl 0.2 mg tablet 0.2 mg PO Q8H PRN SBP>175 #15 tabs 06/14/20 [Rx Last Taken Unknown] tramadol 50 mg tablet 50 mg PO Q4H PRN PRN pain #15 tabs 06/14/20 [Rx Last Taken Unknown] aspirin 81 mg capsule 81 mg PO DAILY heart health 09/27/23 [History Last Taken 09/27/23] latanoprost 0.005 % eye drops 1 drp ophthalmic (eye) QHS glaucoma 09/27/23 [History Last Taken 09/26/23] losartan 100 mg-hydrochlorothiazide 12.5 mg tablet 1 tab PO DAILY 09/27/23 [History Last Taken 09/27/23] multivitamin (Daily Multi-Vitamin tablet) 1 tab PO DAILY supplement 09/27/23 [History Last Taken 09/27/23] omega [id number]-[id number]-fish oil 1,200 mg (144 mg-216 mg) capsule (Fish Oil) 1 cap PO DAILY supplement 09/27/23 [History Last Taken 09/27/23] Allergy/AdvReac Type Severity Reaction Status Date / Time lisinopril Allergy PT UNSURE Verified 09/05/23 23:48 OF REACTION Social History (Updated 09/27/23 @ 14:[address] Toney Hoang MD) household members: spouse Smoking Status: Current every day smoker tobacco type: cigarettes and cigars substance use type: does not use Physical Exam Const alert and oriented x3 HEENT normocephalic Eyes no scleral icterus Resp normal respiratory effort Cardio regular rate Psych mental status grossly normal Risk Stratification Risk Stratification Applicable: No Charges/Coding Visit Charges Inpatient E&M: 04304 Init Hosp L2 Objective Data Vital Signs: Vital Signs Temp Pulse Resp BP Pulse Ox O2 Del Method 97.8 F 57 L 16 139/74 H 96 Room Air 09/28/23 11:40 09/28/23 11:53 09/28/23 11:53 09/28/23 11:53 09/28/23 11:53 09/28/23 11:53 Oxygen Delivery Method Room Air Weight: 219 lb Body Mass Index (BMI) 29.7 Intake & Output: Intake and Output for Last 24 Hours 09/26/23 09/27/23 09/28/23 23:59 23:59 23:59 Intake Total 627 / 1377 2077.95 / 2077.95 Balance 627 / 1377 2077.95 / 7.95 Lab / Micro Data 09/27/23 13:55 09/28/23 04:05 Labs: Laboratory Results - last 24 hr 09/27/23 13:55: WBC 7.6, RBC 5.06, Hgb 15.3, Hct 46.8, MCV 92.5, MCH 30.2, MCHC 32.7, RDW Std Deviation 46.8 H, RDW Coeff of Kushal 13.7, Plt Count 162, MPV 10.5, Immature Gran % (Auto) 0.300, Neut % (Auto) 56.6, Lymph % (Auto) 32.1, [place] % (Auto) 7.7, Eos % (Auto) 3.0, Baso % (Auto) 0.3, Absolute Neuts (auto) 4.3, Absolute Lymphs (auto) 2.43, Nucleated RBC % 0, PT 14.1, INR 1.1, APTT 31.2, Sodium 141, Potassium 4.1, Chloride 106, Carbon Dioxide 30.0, Anion Gap 5, BUN 20 H, Creatinine 1.52 H, Estim Creat Clear Calc 51.05, Est GFR (MDRD) Af Amer 59 L, Est GFR (MDRD) Non-Af 49 L, BUN/Creatinine Ratio 13.2, Glucose 114 H, Calcium 9.1, Troponin I High Sens 20 09/27/23 16:17: Troponin I High Sens 18 09/27/23 20:30: APTT 69.8 H 09/28/23 04:05: APTT 56.4 H, Sodium 139, Potassium 4.0, Chloride 111 H, Carbon Dioxide 24.0, Anion Gap 4 L, BUN 21 H, Creatinine 1.28, Estim Creat Clear Calc 60.63, Est GFR (MDRD) Af Amer 72, Est GFR (MDRD) Non-Af 59 L, BUN/Creatinine Rat io 16.4, Glucose 122 H, Calcium 8.4 L 09/28/23 10:06: APTT 50.2 H Rhythm Strip Rhythm Strip: Sinus Rhythm Rate: 65 Ectopy: None Cardiology Labs/Tests 09/27/23 13:55: WBC 7.6, RBC 5.06, Hgb 15.3, Hct 46.8, MCV 92.5, MCH 30.2, MCHC 32.7, Plt Count 162, MPV 10.5, Immature Gran % (Auto) 0.300, Neut % (Auto) 56.6, Lymph % (Auto) 32.1, [place] % (Auto) 7.7, Eos % (Auto) 3.0, Baso % (Auto) 0.3, Absolute Neuts (auto) 4.3, Nucleated RBC % 0, PT 14.1, INR 1.1, APTT 31.2, Sodium 141, Potassium 4.1, Chloride 106, Carbon Dioxide 30.0, Anion Gap 5, BUN 20 H, Creatinine 1.52 H, Est GFR (MDRD) Af Amer 59 L, Est GFR (MDRD) Non-Af 49 L , BUN/Creatinine Ratio 13.2, Glucose 114 H, Calcium 9.1 09/27/23 20:30: APTT 69.8 H 09/28/23 04:05: APTT 56.4 H, Sodium 139, Potassium 4.0, Chloride 111 H, Carbon Dioxide 24.0, Anion Gap 4 L, BUN 21 H, Creatinine 1.28, Est GFR (MDRD) Af Amer 72, Est GFR (MDRD) Non-Af 59 L, BUN/Creatinine Ratio 16.4, Glucose 122 H, Calcium 8.4 L 09/28/23 10:06: APTT 50.2 H Rhythm: EKG: ECHO: Stress Test: Cardiac Cath: PCI: CT Surgery: Holter monitor: EPS: PPM: CXR: Chest CT Scan: Radiography Diagnostic Testing: Radiology Impression Chest X-Ray 09/27/23 14:04 IMPRESSION: Mild increased linear markings at the left lung base suggestive of atelectasis. Electronically Signed: Amado Wright MD at 14:32 EDT ,
--- NOTE | 2023-09-28 12:33 | CL.D_ITS ---
Patient Name: JADON MADDOX Study Date: 09/28/2023 Performing: Martín Nicolas MD Ht: 72 inches 182.88 cm : 1955 Wt: 219.3 lbs 99.34 kg Age: 67 Gender: male BSA: 2.21 PROCEDURE(S) PERFORMED [id number])[facility] CLINICAL PROFILE AND INDICATIONS Indications: Worsening Angina Heart Failure: None Stress/Imaging Date: 09/28/23Stress Test with SPECT MPI: Positive High Risk CAD Presentations: Unstable angina. CONCLUSIONS RECOMMENDATIONS DESCRIPTION OF PROCEDURE The patient arrived to the procedure lab. The risks and benefits of the procedure as well as a full description of our services here and current unavailability of surgical backup were fully explained to the patient and/or their significant other prior to the catheterization. The Timeout was completed, verifying the correct patient and procedure. The patient's procedural site was prepped and draped in the usual fashion. Local anesthetic was given subcutaneously to right radial region with Lidocaine 2%. Using a modified Seldinger technique, arterial access was obtained via the right radial artery, a 6Fr sheath was inserted. Right Coronary Artery selective angiography was then performed in multiple views using a 5 Fr. JR 4 catheter.The arterial sheath was pulled and a TR Band was applied for hemostasis w/ 12ml air CORONARY ANGIOGRAPHY DOMINANCE: Right Dominant LEFT MAIN: Mild luminal irregularities LEFT ANTERIOR DESCENDING ARTERY: MID LAD: 95 % Stenosis DIAGONAL 2: Proximal - 40-50 % Stenosis. 1st Diagonal is a small vessel CIRCUMFLEX ARTERY: PROX CIRC: 40 % Stenosis OM 1: Proximal - 20-30 % Stenosis RIGHT CORONARY ARTERY: PROX RCA: 100 % Stenosis RT PLV: Two tandem 80 % Stenoses COMPLICATIONS No Complications PROCEDURE MEDICATIONS Versed 1 mg IV Fentanyl 50 mcg IV Versed 1 mg IV Oxygen: 2 L/min via nasal cannula SUMMARY OF HEMODYNAMIC DATA Time AIR REST ECG 10:48:01 AO 123/62 (89) SA 11:10:49 Signed By Martín Nicolas MD On 09/28/2023 12:32:08 Martín Nicolas MD
--- NOTE | 2023-09-28 14:42 | CHAPLAIN ---
Type of Pastoral Visit _x__ Initial Visit ___ Follow-up Visit ___ On-call Visit ___ General Patient Visit ___ Spiritual Assessment ___ Family Conference ___ Bereavement ___ Rapid Response ___ Code Blue ___ Other (describe below) Pastoral Care Referral From _x__ Patient ___ Family ___ Nurse ___ Physician ___ Dispatch Manager ___ Leather Finisher ___ Other (describe below) Sacrament/Intervention _x__ Active listening ___ Anointing ___ Jew ___ Bereavement ___ Communion ___ Savita exploration ___ _x__ Life review ___ Prayer ___ Reconciliation ___ Sacrament of Sick _x__ Supportive presence ___ Wedding ___ Other (describe below) Pastoral Comments patient gives details about his health scare and the plan to transfer him to [facility] for further treatment; pt recognizes that his situation could have been much worse but also admits some apprehension about what his future health might be; pt is willing to talk and express his feelings and thoughts; pt says that he is not roman catholic and does not seek spiritual care
--- NOTE | 2023-09-28 15:01 | PN_ITS ---
Subjective Subjective Patient seen and examined. He had no active complaints today. He had an uneventful night. Review systems otherwise negative. He was admitted o/a of abnormal stress test and had cardiac cath today which showed severe triple vessel disease. He is now awaiting transfer to [facility]. Objective Data Objective Data Vital Signs: Vital Signs Temp Pulse Resp BP Pulse Ox O2 Del Method 97.8 F 61 16 141/89 H 97 Room Air 09/28/23 11:40 09/28/23 12:15 09/28/23 12:15 09/28/23 12:15 09/28/23 12:15 09/28/23 14:00 Oxygen Delivery Method Room Air Weight: 219 lb Body Mass Index (BMI) 29.7 Intake & Output: Intake and Output for Last 24 Hours 09/26/23 09/27/23 09/28/23 23:59 23:59 23:59 Intake Total 627 / 1377 2077.95 / 2077.95 Balance 627 / 1377 2077.95 / 2077.95 Lab / Micro Data 09/27/23 13:55 09/28/23 04:05 Labs: Laboratory Results - last 24 hr 09/27/23 16:17: Troponin I High Sens 18 09/27/23 20:30: APTT 69.8 H 09/28/23 04:05: APTT 56.4 H, Sodium 139, Potassium 4.0, Chloride 111 H, Carbon Dioxide 24.0, Anion Gap 4 L, BUN 21 H, Creatinine 1.28, Estim Creat Clear Calc 60.63, Est GFR (MDRD) Af Amer 72, Est GFR (MDRD) Non-Af 59 L, BUN/Creatinine Ratio 16.4, Glucose 122 H, Calcium 8.4 L 09/28/23 10:06: APTT 50.2 H Rhythm Strip Rhythm Strip: Sinus Rhythm Rate: 65 Ectopy: None Physical Exam Const alert, oriented x3 and no apparent distress General Appearance: cooperative HEENT normocephalic, moist oral mucous membranes and oropharynx normal Eyes PERRL Lymph Lymphatic: no lymphadenopathy noted Resp normal respiratory effort, normal air movement and clear to auscultation bilaterally Cardio regular rate, regular rhythm, S1 normal heart sound, S2 normal heart sound and no murmurs GI normal to inspection, nondistended, normoactive bowel sounds, soft to palpation, non-tender and non-distended Extremity normal capillary refill and no clubbing, cyanosis or edema Neuro CN's II-XII intact bilaterally, no focal motor deficits, no sensory deficits noted and deep tendon reflexes 2+ bilaterally Motor Exam: strength 5/5 throughout and general weakness Psych thought process normal and cooperative Appearance: appropriate Assessment & Plan Assessment/Plan (1) Unstable angina: PLAN: Plan #CAD * Was borderline on account of abnormal stress test and had cardiac cath today which showed severe triple vessel disease * on aspirin, beta edinson and statin * to resume heparin drip 2 hours after right radial access hemostasis
--- NOTE | 2023-09-28 15:08 | DS.PCM_ITS ---
Providers Date of Admission: 09/27/23 Date of Discharge: 09/28/23 Primary Care Physician: Dr. Juan Sousa MD Consultations 09/27/23 15:43 Consult: Cardiology Routine Consulting Provider: Tapan Nicolas Reason for Consult: unstable angina EMERGENT Consult: No MD Notified: Yes Date Notified: 09/27/23 Time Notified: 14:52 Method of Notification: Verbal Reason For Visit: STEMI Diagnosis Discharge Diagnosis (1) Unstable angina: Status: Acute Code(s): I20.0 - Unstable angina Plan #CAD * Was borderline on account of abnormal stress test and had cardiac cath today which showed severe triple vessel disease * on aspirin, beta edinson and statin * to resume heparin drip 2 hours after right radial access hemostasis Medications at Discharge Home Medications clonidine HCl 0.2 mg tablet 0.2 mg PO Q8H PRN SBP>175 #15 tabs 06/14/20 tramadol 50 mg tablet 50 mg PO Q4H PRN PRN pain #15 tabs 06/14/20 aspirin 81 mg capsule 81 mg PO DAILY heart health 09/27/23 latanoprost 0.005 % eye drops 1 drp ophthalmic (eye) QHS glaucoma 09/27/23 losartan 100 mg-hydrochlorothiazide 12.5 mg tablet 1 tab PO DAILY 09/27/23 multivitamin (Daily Multi-Vitamin tablet) 1 tab PO DAILY supplement 09/27/23 omega 6-gbp-gut-fish oil 1,200 mg (144 mg-216 mg) capsule (Fish Oil) 1 cap PO DAILY supplement 09/27/23 Hospital Course Operations None Procedures Cardiac catheterization Summary of Care Provided Minutes Spent on Discharge: 45 Hospital Course: Patient is a 67-year-old male with a past medical history as outlined was admitted through the ED on 09/27/2023 after he was called back for an abnormal stress test. He had had an outpatient stress test on 09/27/2023 and was subsequently found to be positive for reversible ischemia so he was called to come back to the ED. He had been having chest pain for several months. He did not describe it as pain per se but described more as a tightness and heaviness in his chest which worsened with exertion especially when he was mowing his lawn. He also had associated intermittent shortness of breath. He had been seen in the ED on September 05, 2023 with the symptoms and sent home. He saw his PCP who ordered a stress test which was done on outpatient basis and found to be abnormal. On admission in the ED, EKG showed T wave inversions in lead III and aVF. Chest x-ray showed no acute cardiopulmonary process. Troponins were negative. Cardiology was consulted. He was placed on heparin drip and admitted to be managed for unstable angina. He was also placed on aspirin and Lipitor as well as beta-edinson. Cardiology saw patient and he had cardiac cath on 09/28/2023 which showed 100% stenosis of the proximal RCA with 40% stenosis of the proximal circumflex artery and 95% stenosis of the mid LAD as well as 40 to 50% stenosis of the proximal diagonal artery. Decision was made to transfer patient to tertiary center for evaluation for CABG. He was accepted by Dr. Kit Headley (CT surgery) at [facility] and was transferred to [facility] on 09/28/2023. Patient seen and examined prior to discharge. His was by his bedside. He had no complaints and he had an uneventful night. Review of systems otherwise negative. Plan is for transfer to [facility]. Physical Exam Const alert, oriented x3 and no apparent distress General Appearance: cooperative and comfortable Orientation / Consciousness: awake, oriented to person, oriented to place and oriented to time Exam Limitations: no limitations HEENT normocephalic, head/scalp atraumatic, hearing grossly normal bilaterally, moist oral mucous membranes and oropharynx normal Mouth: oral and palatal mucosa normal Eyes PERRL, EOMs intact bilaterally and conjunctivae normal Neck no lymphadenopathy and supple Resp normal respiratory effort, no retractions, no use of accessory muscles and clear to auscultation bilaterally Cardio regular rate, regular rhythm, S1 normal heart sound, S2 normal heart sound and no murmurs GI normal to inspection, nondistended, normoactive bowel sounds, soft to palpation, non-tender and non-distended Extremity normal to inspection, full ROM and no clubbing, cyanosis or edema Skin no rashes or lesions noted and no wounds Neuro oriented x3, CN's II-XII intact bilaterally, moves all extremities, no focal motor deficits and no sensory deficits noted Motor Exam: strength 5/5 throughout Psych affect normal Weight / BMI Weight Weight: 219 lb Body Mass Index (BMI) 29.7 ABG / Lab / Microbiology Data 09/27/23 13:55 09/28/23 04:05 Laboratory: Laboratory Results - last 24 hr 09/27/23 16:17: Troponin I High Sens 18 09/27/23 20:30: APTT 69.8 H 09/28/23 04:05: APTT 56.4 H, Sodium 139, Potassium 4.0, Chloride 111 H, Carbon Dioxide 24.0, Anion Gap 4 L, BUN 21 H, Creatinine 1.28, Estim Creat Clear Calc 60.63, Est GFR (MDRD) Af Amer 72, Est GFR (MDRD) Non-Af 59 L, BUN/Creatinine Ratio 16.4, Glucose 122 H, Calcium 8.4 L 09/28/23 10:06: APTT 50.2 H D/C Instructions Discharge Diet: Low fat / Low cholesterol Discharge Activity: Return to Normal Activity Meaningful Use Info Meaningful Use Diagnoses (Choose all that apply): None applicable Discharge Plan Admission Admit Date/Time: 09/27/23 14:30 Attending Provider: Catrina Merino Primary Care Provider: Juan Sousa Consulting Providers: Tapan Nicolas; Edward Smith Discharge Orders/Prescriptions Prescriptions: No Action tramadol 50 MG tablet 50 mg PO Q4H PRN PRN (Reason: pain) Qty: 15 0RF clonidine HCl 0.2 MG tablet 0.2 mg PO Q8H PRN (Reason: SBP>175) Qty: 15 0RF losartan-hydrochlorothiazide 100-12.5 mg tablet 1 tab PO DAILY latanoprost 0.005 % drops 1 drp ophthalmic (eye) QHS multivitamin [Daily Multi-Vitamin] Tablet 1 tab PO DAILY aspirin 81 mg capsule 81 mg PO DAILY omega 6-jfw-gca-fish oil [Fish Oil] 1,200 (144-216) mg capsule 1 cap PO DAILY Referrals / Follow Up: Juan Sousa MD [Primary Care Provider] - Disposition Disposition (needs filled in before D/C Order can be placed): Acute Care Hospital Charges/Coding Visit Charges Inpatient E&M: 25490 Disch Hosp >30min
--- NOTE | 2023-09-28 18:15 | NURSING ---
Report called to charu at [facility].
[2023-09-28] MEDS: HEPARIN/D5w 25,000 UNITS 25,000 UNITS/250 ML IV.SOLN. 9 UNITS CONT INF (20:48)
[2023-09-29 00:38] LABS: Partial Thromboplast Time 44.1 Seconds (24.1-36.2)
[2023-09-29 01:30] VITALS: BP 138/85; PULSE 67; RESP 16; TEMP 36.6; O2SAT 99
--- NOTE | 2023-09-29 05:42 | NURSING ---
[facility] here to transfer pt to [facility]. Handoff given to EMT.
== END 2023-09-29 05:50 | disposition short-term general hospital (02) | DRG 287 ==
LOC: ED 14:30 → PCU 09-28 07:26
PROVIDERS: Admitting Provider Internal Medicine; Emergency Provider Emergency Medicine; PCP Family Medicine; Visit Provider Student in an Organized Health Care Education/Training Program
DX: I25.110 Atherosclerotic heart disease of native coronary artery with unstable angina pectoris (principal); F17.210 Nicotine dependence, cigarettes, uncomplicated; N18.31 Chronic kidney disease, stage 3a; I12.9 Hypertensive chronic kidney disease with stage 1 through stage 4 chronic kidney disease, or unspecified chronic kidney disease; Z79.82 Long term (current) use of aspirin; Z82.49 Family history of ischemic heart disease and other diseases of the circulatory system; R07.9 Chest pain, unspecified
CPT/HCPCS: 36415; 71045; 78452; 80048; 84484; 85025; 85610; 85730; 93005; 93017; 93454; 99152; 99153; 99285; A9500; J7030; Q9967; 90662; A4216; C1769; C1894

== ENCOUNTER → 2023-09-27 | Outpatient (CLI) | payer MEDICARE, SELFPAY ==
--- NOTE | 2023-09-27 11:50 | STRESSREP ---
Stress Test Report Date: 09/27/2023 Procedure: Exercise tolerance test/imaging study Indications: Chest pain Consent: Per the patient Procedure: The patient exercised on a Hector protocol for 6 minutes achieving a peak heart rate of 137 bpm (90% predicted maximal heart rate) with a peak blood pressure 160/70 mmHg and a peak MET capacity of 7 METs. The baseline ECG demonstrated normal sinus rhythm. The peak exercise ECG demonstrated about [address] elevation in the inferior and lateral leads. EKG during recovery revealed initial normalization of the ST segments followed by ST depressions in the inferior and lateral leads followed by normalization of the ST segments again. [There were no cardiac dysrhythmias pretest, during exercise, or recovery]. The functional capacity was considered normal for age. There was exercise-induced chest tightness that resolved during the recovery phase. The examination was discontinued secondary to achieving target heart rate. Impression: 1. Technically adequate (percent predicted maximal heart rate greater than 85%) exercise tolerance test 2. Stress test is positive for exercise-induced EKG changes of ischemia 3. The test test is positive for exercise-induced chest pain 4. Functional capacity is normal for age 5. Nuclear images pending Myocardial perfusion imaging study: Technique: The patient was injected with 14.2 mCi of technetium 99m Cardiolite and subsequently rest SPECT Cardiolite nuclear imaging was obtained in the horizontal long, vertical long, and short axis views. The patient exercised on a Hector protocol. Please see above for details. The patient was injected with 44.1 mCi of technetium 99m Cardiolite and subsequently stress SPECT Cardiolite nuclear imaging was obtained in the horizontal long, vertical long, and short axis views. A gated Cardiolite study at peak stress was obtained. Interpretation: Rest and stress SPECT Cardiolite nuclear imaging status post realignment, normalization, and attenuation correction, demonstrates [mildly decreased radioisotope uptake in the inferior and lateral puente at rest which then becomes severely decreased on the stress images suggestive of ischemia in this territory]. The gated Cardiolite study demonstrates mild inferior hypokinesis. The reported LVEF is 55%. Impression: 1. There is evidence of ischemia involving the inferior and lateral puente. 2. The gated Cardiolite study reports an LVEF of 55%. This note was generated with [employer] software. It may contain incorrect words, spelling, and punctuation that were not noted in checking the note before signing.
== END | disposition home or self-care (01) ==
LOC: CVS 07:08
PROVIDERS: PCP Family Medicine; Referring Provider Family Medicine; Visit Provider Family Medicine
DX: R07.9 Chest pain, unspecified (principal)
CPT/HCPCS: 78452; 93017; A9500; A4216

== ENCOUNTER → 2023-10-12 | Outpatient (CLI) | payer MEDICARE, SELFPAY ==
[2023-10-12 14:55] LABS: Absolute Lymphocyte Count 1.82 X10^3/uL (0.83-4.51); Absolute Neutrophil Count 4.9 X10^3/uL (2.0-7.7); Basophil# 0.04 X10^3/uL; Basophil% 0.5 % (0-1); Eosinophils% 5.1 % (0-5); Hematocrit 33.9 % (40-54); Hemoglobin 10.2 g/dL (13.0-16.5); Lymphocyte # 1.82 X10^3/ul (0.83-4.51); Lymphocyte % 23.3 % (19-41); Mean Corp Hgb Conc 30.1 g/dL (32-36); Mean Corpuscular Hgb 29.4 pg (27.0-32.0); Mean Corpuscular Volume 97.7 fL (80-94); Mean Platelet Vol. 9.7 fl (6.2-12.0); Monocyte# 0.65 X10^3/uL; Monocyte% 8.3 % (0-10); NRBC Flagged by Analyzer 0 % (0-5); Neutrophil # 4.86 X10^3/uL (2.7-7.7); Neutrophil % 62.2 % (47-70); Platelet Count 259 K/mm3 (150-450); RBC Distribution Width CV 13.9 % (11.6-14.6); RBC Distribution Width SD 49.2 fl (35.1-43.9); Red Blood Count 3.47 M/mm3 (4.6-6.2); White Blood Count 7.8 K/mm3 (4.4-11.0)
[2023-10-12 15:19] LABS: Anion Gap 6 (5-15); BUN 21 mg/dL (7-18); BUN/Creat Ratio 16.4 RATIO (10-20); Calcium,Total 8.8 mg/dL (8.5-10.1); Chloride 111 mmol/L (98-107); Cholesterol 53 mg/dL (200); Creatinine, Serum 1.28 mg/dL (0.70-1.30); EST Glomerular Filtration Rate 59 mL/min (>60); Est Glom Filt Rate - Afr Amer 72 mL/min (>60); Glucose 93 mg/dL (74-106); High Density Lipoprotein 20 mg/dL; Potassium 4.9 mmol/L (3.5-5.1); Sodium Level 140 mmol/L (136-145); Triglycerides 121 mg/dL; Very Low Density Lipoprotein 24 mg/dL (5-40)
== END | disposition home or self-care (01) ==
LOC: MFPLAB 12:00
PROVIDERS: PCP Family Medicine; Visit Provider Family Medicine
DX: I25.10 Atherosclerotic heart disease of native coronary artery without angina pectoris (principal)
CPT/HCPCS: 36415; 80048; 80061; 85025

== ENCOUNTER → 2023-12-11 | Outpatient (CLI) | payer MEDICARE, SELFPAY ==
--- NOTE | 2023-12-11 12:54 | PCM.CR.HP2 ---
CR - History & Physical General Arrival date:: 12/11/23 Arrival time:: 12:54 Date of Referral:: 12/04/23 Date of CR Evaluation:: 12/11/23 Referring Physician: Dr. Nikolai Stephens Primary Diagnosis: CABG 10/03/2023 History of Present Cardiac Event Onset Date Coronary Artery Bypass Graft:: Yes Vessel: Ramirez to mid LAD and sequential vein graft to PDA and posterolateral branch Medications Ambulatory Orders Medication Instructions Recorded aspirin 81 mg capsule 81 mg PO DAILY heart health 09/27/23 latanoprost 0.005 % eye drops 1 drp ophthalmic (eye) QHS glaucoma 09/27/23 acetaminophen 500 mg tablet 1,000 mg PO TID PRN 11/22/23 atorvastatin 80 mg tablet 80 mg PO DAILY 11/22/23 methocarbamol 500 mg tablet 500 mg PO Q8H PRN 11/22/23 metoprolol tartrate 25 mg tablet 25 mg PO BID 11/22/23 losartan 100 1 tab PO DAILY #90 tabs 12/08/23 mg-hydrochlorothiazide 12.5 mg tablet Allergies Allergies lisinopril Allergy (Verified 11/22/23 09:34) PT UNSURE OF REACTION Sleep Disorder Evaluation Hx of Sleep Apnea: Yes Do you snore loudly (louder than talking or can be heard through closed doors)?: No Do you often feel tired/ fatigued/ sleepy during daytime?: No Has anyone observed you stop breathing during sleep?: No History of Hypertension (for STOP score): Yes STOP Results: Negative Advanced Directives Advanced Directives Power of Hospice Music Therapy: No Living Will: No Advance Directives Information Provided: No Advance Directives on File: No DNR Order?:: No Past Medical History Covid-19 Screening Physicial Symptoms Other Clinical Concerns Exposure Risk Pertinent Comorbidities 65 years or older:: Yes Has a serious heart condition:: Yes Past Medical Illness Medical History ACS (acute coronary syndrome) Acute blood loss anemia Atherosclerosis of coronary artery of [place] heart without angina pectoris Essential hypertension Hyperlipidemia Smoker Tobacco use Unstable angina Past Surgical History Surgical History History of coronary artery bypass surgery (10/03/23) History of left heart catheterization (09/28/23) Family History Summary Family History (Updated 11/22/23 @ 10:31 by Patrice Wilson NP, HANDLE LATHE OPERATOR-C) Father Kidney disease CAD (coronary artery disease) CABG-64 Diabetes Mother Cancer Ovarian- mid 80s. Sister Lupus Grandfather CAD (coronary artery disease) 50s- sudden Social History Smoking History Smoking Status: Former smoker Years Smokin Hx Smoking Cessation Date: 08/27/23 Hx Tobacco Use: Yes Alcohol Use Alcohol Usage: Yes (rare) Occupation Occupation (List type of work in comments):: Retired Hobbies, Recreation, Social Activities Hobbies: Other (mow, ride bike) Recreational Activities: I am able to engage in all my recreational activities Social Environment Status Marital Status: Current Living Arrangements Living Environment:: Spouse Children How many children do you have?: 2 Do any of your children live nearby?: Yes Safety Do you feel safe in your surroundings?: Yes Assistance Do you need any assistance at home?: no Review of Systems Review of Systems Hints Review of Present Symptoms: Reports Shortness of Breath with Exertion, Angina, Dizziness/Lightheadedness, Appetite - Normal and Appetite - Special Diet; Denies Shortness of Breath at Rest, PVD, Operative Discomfort, Wound Healing, Fatigue, Heart Arrhythmia/Irregularities, Sleep - Normal or Sexual Changes Pain Is Patient Pain Free?: Yes Risk Factor Assessment Vital Signs Blood Pressure: 127/80 Pulse Pulse Rate: 60 Hypertension How long have you been treated?: 25 years Obesity Height: 6 ft Weight:: 216 lb Weight in Pounds: 216.0 lbs Body Mass Index (BMI): 29.2 Nutritional Referral for Obesity: No Physical Inactivity Physical Inactivity: Reg Exercise 30 min/day Risk Stratification Risk Guidelines: Moderate Risk: Risk Factor for Dyslipidemia, Risk Factor for Diabetes, Risk Factor for Obesity, Risk Factor for Sedentary Lifestyle and Risk Factor for Depression and Highest Risk: Risk Factor for Smoking and Risk Factor for Hypertension For Smoking Smoking Risk Guidelines For Dyslipidemia Dyslipidemia Risk Guidelines For Diabetes Mellitus Diabetes Risk Guidelines For Obesity/Overweight Obesity/Overweight Risk Guidelines For Hypertension Hypertension Risk Guidelines For Sedentary Lifestyle Sedentary Lifestyle Risk Guidelines For Depression Depression Risk Guidelines Family History Family History (Updated 11/22/23 @ 10:31 by Patrice Wilson HANDLE LATHE OPERATOR, HANDLE LATHE OPERATOR-C) Father Kidney disease CAD (coronary artery disease) Diabetes Mother Cancer Sister Lupus Grandfather CAD (coronary artery disease) Motivation Motivation to Participate What do you see as barriers to successfully being able to complete the program?: nothing What do you see as the benefits of succesfully completing the program? In other words, what do you hope to get out of participating in the program?: stronger heart Are there issues you are dealing with that will interfere with completing the program?: nothing Do you have a spouse or signficant other, family or friends who will help support you to complete the program?: yes
[2023-12-11 13:01] VITALS: PULSE 60
--- NOTE | 2023-12-11 13:01 | PCM.CR.ITP ---
Diagnosis General Information Admitting Diagnosis: CABG Personal Learning Style:: Audio/Visual Stage of change r/t lifestyle modifications:: Contemplation Gave educational material for:: Treating Heart Disease, How The Heart Works, What it means to have Heart Disease, How Coronary Artery Disease is Diagnosed, Heart Procedures, What Heart Medications Do, Risk Factors & Modifications, Living an Active Life, Nutrition, Emotions & Heart Disease, Stress Management & Relaxation and Sleep Disorders & Heart Disease Education/Goals Cardiac Rehabilitation Goals Personal Goals: Initial Assessment: Improve energy level, Participate in home exercise program and Improve diet and eating habits (eat healthier) Scale for measuring improvement of personal goals Diagnosis & Disease Process Outcomes/Goals: Pt IDs own risk factors & lifestyle modifications by Session 10, Verbalizes symptoms of angina & response by session 3., Pt independently manages and Other Additional Outcomes/Goals: Plan/Interventions: Assist Pt to ID & engage in lifestyle modification to reduce CVD risk, Instruct on individual risk factors, Review symptoms of angina & emergency actions, Review secondary diagnosis & identify educational needs. and Other see comment 30 day Reassessments:: Not Met 30 day Reassessments:: Not Met 30 day Reassessments:: Not Met 30 day Reassessments:: Not Met Final Reassessments:: Not Met Safety Referral to Physical Therapy: No Referral to [facility] Case Management: No Fall Risk Assessed:: Yes Assistive Devices:: None Exercise - Initial Assessment Visit Date of Eval: 12/11/23 (initial eval ) Mets: Pre-: >3 METS for 30 minutes by discharge, >5 METS for 30 minutes by discharge, >7 METS for 30 minutes by discharge and Unable to meet goal due to: (see comment below) Physician Prescribed Exercise Modalities: Treadmill, Rower, Airdyne, NuStep, SciFit and Lateral [place] Frequency: 3x/week for 12 weeks [36 sessions] Intensity: 60-80% of age predicted maximum heart rate reserve Duration: 30 - 45 minutes Current METSs:: 3 Target Heart Rate:: 91-106 Resting Blood Pressure: 127/80 EKG Type: SR Outcomes & Goals Goals:: Verbalizes understanding of THR, RPE & goal METS by session 6, Documents in home exercise log/reports 30 min aerobic 5 day/wk by DC, Demonstrates accurate pulse taking by DC and Other additional outcome/goals: see below Intervention & Plan Exercise Program Goals: Instruct on personal THR & RPE, Instruct on MET level & personal MET goal, Show patient to take own pulse /validate performance until accurate, Instruct on home exercise and Other additional plan/int Physical Activity Home Exercise Physical Activity - Home Exercise: Safe Exercise, Warm-up, Self-monitoring, Cool-Down, Home Exercise > 30 min Daily and Sitting Time <3 hours/daily Outcomes & Goals Outcomes/Goals: Demonstrates correct Warm-up/exercise Cool-Down (S3) if = 2.5 METs, Verbalizes symptoms of exercise intolerance by Session 3 (S3), Demonstrate safe equipment use (S3) & follows exercise prescrition (6) and Other: See below Intervention & Plan Plan/Intervention: Instruct warm-up & cool-down if exercising at > 2 METs, Instruct on symptoms of exercise intolerance & actions to take, Instruct & monitor on saf, Assess intial functional capacity & safety risk and Other See below Nutrition - Initial Assessment Program Goals Nutrition Program Goals Patient has diagnosis of Hyperlipidemia (ICD E78)?: Yes Visit Date of Eval: 12/11/23 (initial eval ) Cholesterol/Lipids (Other Core Measures) Determine presence & major risk factors that modify LDL goal: Cigarette smoking, Hypertension or hypertensive medication, Low HDL cholesterol <40 mg/dL*, Family history of premature CHD in Male < 55 years: female <65 yearsFa and Age men > 45 years; women >/= 55 years Outcomes/Goals: Pt IDs own risk factors & lifestyle modifications by Session 10, Verbalizes symptoms of angina & response by session 3., Pt independently manages and Other Additional Outcomes/Goals: Intervention/Plan: Advocate for lipid panel cholesterol medication if applicable, Instruct on personal lipid levels & lipid goals/NCEP guidelines, Instruct on cholesterol and Other additional plan/int Referral to dietitian:: Yes Diabetes (Other Core Measures) Diabetes Type: Not Applicable Weight Mgt (Other Care) Height: 6 ft Weight:: 216 lb BMI: 29.2 Diagnosis Overweight/Obesity BMI> 30% ICD-10 E66: No Diagnosis High BMI/Morbid Obesity BMI> 35% ICD-10 Z68: No Outcomes/Goals: Pt sets, maintains & shows weight loss goal & trend during rehab and Other additional outcomes/goals Intervention/Plan: Instruct on ideal BMI & set weight loss goal w/patient, Assist pt to ID & incorporate diet changes for weight loss by S9, Refer to Structured Weight Loss program as appropriate, Encourage goal of using 250-300dcal per session for weight loss and Other additional plan/interventions Healthy Eating Habits Will attend diet classes:: Yes Outcomes/Goals:: Consume diet rich in vegs,fruits,whole grain/high fiber,fish,lean meat, Limit sat/trans fats,cholesterol & added salts & sugars and Other additional outcome/goals: Intervention/Plan:: Assess current eating habits and Other Additional plan/interventions Education Gave educational materials for:: Signs & symptoms of hypoglycemia, Signs & symptoms of hyperglycemia, Relate diabetes to coronary artery disease and Healthy eating Core - Initial Assessment Visit Date of Eval: 12/11/23 (initial eval ) Medication Compliance Preventative Medication(s):: Aspirin, Statin/lipid and Beta edinson H/O mental health issues: depression, anxiety, or addiction?: No Doesn?t believe in the benefits of treatment?: No Believes medications are unnecessary or harmful?: No Has a concern about medication side effects?: No Expresses concern over the cost of medications?: No Outcomes/Goals: Verbalizes medications,desired effect & common side effects @ DC, Pt self-reports following medication regimen, Keeps card in wallet w/medications listed by DC and Other additional outcome/goals: Interventions/plans: Instruct on medication effects & side effects, Review medication list w/patient every two weeks, Instruct importance of taking meds as ordered & assist problem solving and Other additional Tobacco Use Tobacco Use: Non-smoker How long ago did you quit using tobacco products?: Less than 6 months ago Years Smokin Do you use smokeless tobacco?: No Interventions/plan: Instruct on effects of smoking & provide smoking cessation resource, Assist pt to set quit date & provide encouragement, Assist pt to develop strategies to achieve/maintain quit date, Assist pt w/nicotine replacement & medication for cessation success and Other additional plan/interventions Hypertension Hypertension Diagnosis:: Hypertension ICD-10 I10 Resting Blood Pressure:: 127/80 [place] [employer] Hypertension Guidelines Outcomes/Goals: Able to verbalize/achieve optimal blood pressure <130/80, Incorporates diet changes & exercise for blood pressure control by DC and Other additional outcomes/goals Interventions/plan: Instruct on optimal blood pressure, hypertension & medications, Instruct on effects of sodium, alcohol, stress, exercise &hypertension and Other additional plan/interventions Tobacco Cessation Referral Smoking Cessation Referral:: No Individual Education/Counseling:: No Education Schedule Given:: Yes Psychosocial - Initial Assess VIsit Date of Eval: 12/11/23 (initial eval) History of previous Mental disease:: No Target Goals Target Goals Outcomes/Goals: See list Psychosocial Outcomes/Goals:: ID's personal stressors & 2 strategies to manage stress by discharge and Other Additional outcome/goals: Intervention/Plan: See List Interventions/Plan:: Assess stressors,coping strategies & signs of derpression on admission, Instruct/assist pt to develop coping & personal stress Mgt strategies, Refer to Behavioral Health if appropriate, Refer to Physician if appropriate, Instruct patient to recognize signs & symptoms of depression, Instruct patient to recog and Other additional plan/intervention Patient Health Questionnaire PHQ-9 Screening Initial Assessment: 1. Little interest or pleasure in doing things: Not at all 2. Feeling down, depressed, or hopeless: Not at all 3. Trouble falling or staying asleep, or sleeping too much: More than half the days 4. Feeling tired or having little energy: Several days 5. Poor appetite or overeating: Not at all 6. Feeling bad about yourself -- or that you are a failure or have let yourself or your family down: Not at all 7. Trouble concentrating on things, such as reading the newspaper or watching television: Not at all 8. Moving or speaking so slowly that other people could have noticed. Or the opposite - being so fidgety or restless that you have been moving around a lot more than usual: Not at all 9. Thoughts that you would be better off , or of hurting yourself in some way: Not at all How difficult have these problems made it for you to do your work, take care of things at home, or get along with other people?: Not difficult at all Total Score: 3 POLY-Q SV Test Statements CAD is a disease of the arteries in the heart: False Examples of risk factors for heart disease: True Angina is chest pain or discomfort: True The benefits of resistance training include: False Eating more meat and dairy products: False Anti-platelet medications such as aspirin are important: True The only effective way to manage stress: False An exercise warm-up slowly increases heart rate: True Prepared, processed foods usually have high sodium: True Depression is common after a heart attack: False The statin medications lower cholesterol: True To control blood pressure, lower the amount of sodium: True If someone gets chest discomfort during walking: False Transfats are partially hydrogenated vegetable oils: True Sleep apnea that is not treated increases the risk: True To control cholesterol, one should become a vegetarian: False Someone knows if he/she is exercising at the right level: I Don't Know Diabetes cannot be prevented with exercise & health eating: False Stress is a large risk for heart attack: True A diet that can help lower blood pressure is rich in: True Total Score Total Correct Responses: 16 Self-Efficacy 6-Item Scale Initial Assessment: We would like to know how confident you are in doing certain activities. Please select your confidence level for: Fatigue Select Number: 10 Physical Discomfort or Pain Select Number: 8 Emotional Distress Select Number: 8 Other Symptoms or Health Problems Select Number: 8 Different Tasks and Activities Select Number: 10 Medication Select Number: 8 Total Score:: 8 Nutrition Survey Nutrition Survey Instructions Scoring Instructions Nutrition Survey Initial: Have you lost >10 lbs over the past 2 months without trying?: No Are you following a special diet at home for diabetes, low fat, or low salt?: Yes Are you interested in meeting with a dietitian for help understanding your diet?: Yes Do you eat less than 3 meals a day?: No Do you eat fatty meats (robert, sausage, ribs, etc), fried foods, desserts, large amounts of salad dressings, margarine, butter, or cheese most days?: No Do you have food allergies? [Enter types in comment field]: No Do you eat in restaurants more than 3 times a week?: No Do you season food with salt, seasoning salt, or garlic salt?: No Do you used canned, boxed, frozen meals, or soups, seasoning packets?: No Total Score:: 2 Exercise - Final/Discharge Physician Prescribed Exercise Modalities: Treadmill, Rower, Airdyne, NuStep, SciFit and Lateral [employer] Frequency: 3x/week for 12 weeks [36 sessions] Intensity: 60-80% of age predicted maximum heart rate reserve Current METSs:: 3 Target Heart Rate:: 91-106 Nutrition - 30-Day Assessment Weight Mgt (Other Care) Height: 6 ft Weight:: 216 lb BMI: 29.2 Nutrition - 60-Day Assessment Weight Mgt (Other Care) Height: 6 ft Weight:: 216 lb BMI: 29.2 Core - 30-Day Assessment Tobacco Use Years Smokin Core - Final Assessment Hypertension Resting Blood Pressure:: 127/80 [place] [employer] Hypertension Guidelines Core - 60-Day Assessment Hypertension Resting Blood Pressure:: 127/80 [place] [employer] Hypertension Guidelines Psychosocial - 30-Day Assess Target Goals Target Goals Psychosocial - 60-Day Assess Target Goals Target Goals Psychosocial - 90-Day Assess Target Goals Target Goals Psychosocial - Final Assessmen Target Goals Target Goals Nutrition - 90-Day Assessment Weight Mgt (Other Care) Height: 6 ft Weight:: 216 lb BMI: 29.2 Nutrition - Final Assessment Program Goals Patient has diagnosis of Hyperlipidemia (ICD E78)?: Yes Weight Mgt (Other Care) Height: 6 ft Weight:: 216 lb BMI: 29.2
[2023-12-11 13:03] VITALS: BP 127/80
[2023-12-11 13:16] VITALS: BMI 29.2
[2023-12-11 13:52] VITALS: BMI 29.2
[2023-12-11 14:01] VITALS: BP 127/80
== END | disposition home or self-care (01) ==
LOC: CR 12:42
PROVIDERS: PCP Family Medicine; Referring Provider Internal Medicine Cardiovascular Disease; Visit Provider Internal Medicine Cardiovascular Disease
DX: Z95.1 Presence of aortocoronary bypass graft (principal); I24.9 Acute ischemic heart disease, unspecified; I10 Essential (primary) hypertension; I25.10 Atherosclerotic heart disease of native coronary artery without angina pectoris; E78.5 Hyperlipidemia, unspecified; Z87.891 Personal history of nicotine dependence; R06.02 Shortness of breath; R42 Dizziness and giddiness; D50.0 Iron deficiency anemia secondary to blood loss (chronic)

== ENCOUNTER 2023-12-27 09:15 | Outpatient (RCR) | payer MEDICARE, SELFPAY ==
[2023-12-11 13:52] VITALS: BMI 29.2
== END 2023-12-27 23:59 ==
LOC: CR 09:15
PROVIDERS: PCP Family Medicine; Referring Provider Internal Medicine Cardiovascular Disease; Visit Provider Internal Medicine Cardiovascular Disease
DX: Z95.1 Presence of aortocoronary bypass graft (principal); I25.10 Atherosclerotic heart disease of native coronary artery without angina pectoris; E78.2 Mixed hyperlipidemia; I10 Essential (primary) hypertension
CPT/HCPCS: 93798

== ENCOUNTER → 2024-01-10 | Outpatient (CLI) | payer MEDICARE, SELFPAY ==
[2023-12-11 13:52] VITALS: BMI 29.2
[2024-01-10 10:35] LABS: AST(SGOT) 31 U/L (15-37); Alanine Aminotransfer ALT/SGPT 74 U/L (16-61); Alkaline Phosphatase 71 U/L (45-117); Anion Gap 5 (5-15); BUN 23 mg/dL (7-18); BUN/Creat Ratio 16.5 RATIO (10-20); Calcium,Total 9.3 mg/dL (8.5-10.1); Chloride 105 mmol/L (98-107); Cholesterol 67 mg/dL (200); Creatinine, Serum 1.39 mg/dL (0.70-1.30); EST Glomerular Filtration Rate 54 mL/min (>60); Est Glom Filt Rate - Afr Amer 65 mL/min (>60); Globulin 4.1 g/dL (2.2-4.2); Glucose 111 mg/dL (74-106); High Density Lipoprotein 31 mg/dL; Potassium 4.6 mmol/L (3.5-5.1); Protein, Total 8.1 g/dL (6.4-8.2); Sodium Level 138 mmol/L (136-145); Triglycerides 113 mg/dL; Very Low Density Lipoprotein 23 mg/dL (5-40)
== END | disposition home or self-care (01) ==
LOC: MFPLAB 08:03
PROVIDERS: PCP Family Medicine; Visit Provider Family Medicine
DX: E78.1 Pure hyperglyceridemia (principal); I10 Essential (primary) hypertension
CPT/HCPCS: 36415; 80053; 80061

== ENCOUNTER 2024-01-17 09:15 | Outpatient (RCR) | payer MEDICARE, SELFPAY ==
[2023-12-11 13:52] VITALS: BMI 29.2
--- NOTE | 2024-01-10 08:44 | CR.ITP_ITS ---
Exercise - Initial Assessment Visit Session #:: 12 Nutrition - Initial Assessment Weight Mgt (Other Care) Height: 6 ft Weight:: 211 lb 8 oz BMI: 28.6 Psychosocial - Initial Assess Target Goals Target Goals Patient Health Questionnaire PHQ-9 Screening 30-Day Re-eval Assessment: 1. Little interest or pleasure in doing things: Not at all 2. Feeling down, depressed, or hopeless: Not at all 3. Trouble falling or staying asleep, or sleeping too much: More than half the days 4. Feeling tired or having little energy: Several days 5. Poor appetite or overeating: Not at all 6. Feeling bad about yourself -- or that you are a failure or have let yourself or your family down: Not at all 7. Trouble concentrating on things, such as reading the newspaper or watching television: Not at all 8. Moving or speaking so slowly that other people could have noticed. Or the opposite - being so fidgety or restless that you have been moving around a lot more than usual: Not at all 9. Thoughts that you would be better off , or of hurting yourself in some way: Not at all How difficult have these problems made it for you to do your work, take care of things at home, or get along with other people?: Not difficult at all Total Score: 3 Self-Efficacy 6-Item Scale 30-Day Re-eval Assessment: We would like to know how confident you are in doing certain activities. Please select your confidence level for: Fatigue Select Number: 10 Physical Discomfort or Pain Select Number: 8 Emotional Distress Select Number: 8 Other Symptoms or Health Problems Select Number: 8 Different Tasks and Activities Select Number: 10 Medication Select Number: 8 Total Score:: 8 Nutrition Survey Nutrition Survey Instructions Scoring Instructions Exercise - 30-day Assessment Visit Date of Eval: 01/10/24 Session #:: 12 Physician Prescribed Exercise Modalities: Treadmill, Airdyne and NuStep Frequency: 3x/week for 12 weeks [36 sessions] Intensity: 60-80% of age predicted maximum heart rate reserve Duration: 30 - 45 minutes Current METSs:: 3 Target Heart Rate:: 98-113 Current RPE:: 11-12.5 Maximum Excercise HR:: 99 Resting Blood Pressure: 116/80 Maximum Exercise Blood Pressure: 150/62 EKG Type: NSR to ST w/rare pac,pvc. Rare vent trigeminy, quadrigeminy. Outcomes & Goals Goals:: Verbalizes understanding of THR, RPE & goal METS by session 6, Documents in home exercise log/reports 30 min aerobic 5 day/wk by DC, Demonstrates accurate pulse taking by DC and Other additional outcome/goals: see below Intervention & Plan Exercise Program Goals: Instruct on personal THR & RPE, Instruct on MET level & personal MET goal, Show patient to take own pulse /validate performance until accurate, Instruct on home exercise and Other additional plan/int 30-day Reassessments 30 day Reassessments:: Progressing Reassessment Notes & Comments:: RPE expained Physical Activity Home Exercise Physical Activity - Home Exercise: Safe Exercise, Warm-up, Self-monitoring, Cool-Down, Home Exercise > 30 min Daily and Sitting Time <3 hours/daily Outcomes & Goals Outcomes/Goals: Demonstrates correct Warm-up/exercise Cool-Down (S3) if = 2.5 METs, Verbalizes symptoms of exercise intolerance by Session 3 (S3), Demonstrate safe equipment use (S3) & follows exercise prescrition (6) and Other: See below Intervention & Plan Plan/Intervention: Instruct warm-up & cool-down if exercising at > 2 METs, Instruct on symptoms of exercise intolerance & actions to take, Instruct & monitor on saf, Assess intial functional capacity & safety risk and Other See below 30-day Reassessments 30 day Reassessments:: Progressing Reassessment Notes & Comments:: warm up encouraged Nutrition - 30-Day Assessment Program Goals Nutrition Program Goals Patient has diagnosis of Hyperlipidemia (ICD E78)?: Yes Visit Date of Eval: 01/10/24 Session #:: 12 Cholesterol/Lipids (Other Core Measures) Determine presence & major risk factors that modify LDL goal: Cigarette smoking, Hypertension or hypertensive medication, Low HDL cholesterol <40 mg/dL*, Family history of premature CHD in Male < 55 years: female <65 yearsFa and Age men > 45 years; women >/= 55 years Outcomes/Goals: Pt IDs own risk factors & lifestyle modifications by Session 10, Verbalizes symptoms of angina & response by session 3., Pt independently manages and Other Additional Outcomes/Goals: Intervention/Plan: Advocate for lipid panel cholesterol medication if applicable, Instruct on personal lipid levels & lipid goals/NCEP guidelines, Instruct on cholesterol and Other additional plan/int Diabetes (Other Core Measures) Diabetes Type: Not Applicable Weight Mgt (Other Care) Height: 6 ft Weight:: 211 lb 8 oz BMI: 28.6 Diagnosis Overweight/Obesity BMI> 30% ICD-10 E66: No Diagnosis High BMI/Morbid Obesity BMI> 35% ICD-10 Z68: No Outcomes/Goals: Pt sets, maintains & shows weight loss goal & trend during rehab and Other additional outcomes/goals Intervention/Plan: Instruct on ideal BMI & set weight loss goal w/patient, Assist pt to ID & incorporate diet changes for weight loss by S9, Refer to Structured Weight Loss program as appropriate, Encourage goal of using 250- 300dcal per session for weight loss and Other additional plan/interventions 30 day Reassessments:: Progressing Reassessment Notes & Comments:: pt to attend nutrition class Healthy Eating Habits Will attend diet classes:: Yes Outcomes/Goals:: Consume diet rich in vegs,fruits,whole grain/high fiber,fish,lean meat, Limit sat/trans fats,cholesterol & added salts & sugars and Other additional outcome/goals: Intervention/Plan:: Assess current eating habits and Other Additional plan/interventions 30-day Reassessments:: Progressing Reassessment Notes & Comments:: pt to attend nutrition class Education Gave educational materials for:: Signs & symptoms of hypoglycemia, Signs & symptoms of hyperglycemia, Relate diabetes to coronary artery disease and Healthy eating Nutrition - 60-Day Assessment Weight Mgt (Other Care) Height: 6 ft Weight:: 211 lb 8 oz BMI: 28.6 Core - 30-Day Assessment Visit Date of Eval: 01/10/24 Session #:: 12 Medication Compliance Preventative Medication(s):: Aspirin, Statin/lipid and Beta edinson H/O mental health issues: depression, anxiety, or addiction?: No Doesn?t believe in the benefits of treatment?: No Believes medications are unnecessary or harmful?: No Has a concern about medication side effects?: No Expresses concern over the cost of medications?: No Outcomes/Goals: Verbalizes medications,desired effect & common side effects @ DC, Pt self-reports following medication regimen, Keeps card in wallet w/medications listed by DC and Other additional outcome/goals: Interventions/plans: Instruct on medication effects & side effects, Review medication list w/patient every two weeks, Instruct importance of taking meds as ordered & assist problem solving and Other additional 30-day Reassessments:: Progressing Reassessment Notes & Comments:: losartan HCTZ 10 mg added 12/08/23 per pt Tobacco Use Tobacco Use: Non-smoker Hypertension Hypertension Diagnosis:: Hypertension ICD-10 I10 Resting Blood Pressure:: 116/80 [place] [employer] Hypertension Guidelines Peak Exercise Blood Pressure:: 150/62 Outcomes/Goals: Able to verbalize/achieve optimal blood pressure <130/80, Incorporates diet changes & exercise for blood pressure control by DC and Other additional outcomes/goals Interventions/plan: Instruct on optimal blood pressure, hypertension & medications, Instruct on effects of sodium, alcohol, stress, exercise &hype rtension and Other additional plan/interventions 30 day Reassessments:: Progressing Reassessment Notes & Comments:: losartan HCTZ 10 mg added 12/08/23 per pt Tobacco Cessation Referral Smoking Cessation Referral:: No Individual Education/Counseling:: No Education Schedule Given:: Yes Psychosocial - 30-Day Assess VIsit Date of Eval: 01/10/24 Session #:: 12 History of previous Mental disease:: No Target Goals Target Goals Outcomes/Goals: See list Psychosocial Outcomes/Goals:: ID's personal stressors & 2 strategies to manage stress by discharge and Other Additional outcome/goals: Intervention/Plan: See List Interventions/Plan:: Assess stressors,coping strategies & signs of derpression on admission, Instruct/assist pt to develop coping & personal stress Mgt strategies, Refer to Behavioral Health if appropriate, Refer to Physician if appropriate, Instruct patient to recognize signs & symptoms of depression, Instruct patient to recog and Other additional plan/intervention 30-day Reassessments: 30 day Reassessments:: Met Psychosocial - 60-Day Assess Target Goals Target Goals Outcomes/Goals: See list Psychosocial Outcomes/Goals:: ID's personal stressors & 2 strategies to manage stress by discharge and Other Additional outcome/goals: Psychosocial - 90-Day Assess Target Goals Target Goals Psychosocial - Final Assessmen Target Goals Target Goals Nutrition - 90-Day Assessment Weight Mgt (Other Care) Height: 6 ft Weight:: 211 lb 8 oz BMI: 28.6 Nutrition - Final Assessment Weight Mgt (Other Care) Height: 6 ft Weight:: 211 lb 8 oz BMI: 28.6
[2024-01-10 08:56] VITALS: BP 116/80; BMI 28.6
== END 2024-01-25 23:59 ==
LOC: CR 09:15
PROVIDERS: PCP Family Medicine; Referring Provider Internal Medicine Cardiovascular Disease; Visit Provider Internal Medicine Cardiovascular Disease
DX: Z95.1 Presence of aortocoronary bypass graft (principal); I25.10 Atherosclerotic heart disease of native coronary artery without angina pectoris; E78.2 Mixed hyperlipidemia; I10 Essential (primary) hypertension
CPT/HCPCS: 93798

== ENCOUNTER 2024-02-23 09:15 | Outpatient (RCR) | payer MEDICARE, SELFPAY ==
[2024-01-10 08:56] VITALS: BMI 28.6
[2024-01-26 00:14] VITALS: BP 116/80
--- NOTE | 2024-02-09 07:43 | PCM.CR.ITP ---
Nutrition - Initial Assessment Weight Mgt (Other Care) Height: 6 ft Weight:: 211 lb BMI: 28.6 Psychosocial - Initial Assess Target Goals Target Goals Patient Health Questionnaire PHQ-9 Screening 60-Day Re-eval Assessment: 1. Little interest or pleasure in doing things: Not at all 2. Feeling down, depressed, or hopeless: Not at all 3. Trouble falling or staying asleep, or sleeping too much: More than half the days 4. Feeling tired or having little energy: Several days 5. Poor appetite or overeating: Not at all 6. Feeling bad about yourself -- or that you are a failure or have let yourself or your family down: Not at all 7. Trouble concentrating on things, such as reading the newspaper or watching television: Not at all 8. Moving or speaking so slowly that other people could have noticed. Or the opposite - being so fidgety or restless that you have been moving around a lot more than usual: Not at all 9. Thoughts that you would be better off , or of hurting yourself in some way: Not at all How difficult have these problems made it for you to do your work, take care of things at home, or get along with other people?: Not difficult at all Total Score: 3 Self-Efficacy 6-Item Scale 60-Day Re-eval Assessment: We would like to know how confident you are in doing certain activities. Please select your confidence level for: Fatigue Select Number: 10 Physical Discomfort or Pain Select Number: 8 Emotional Distress Select Number: 8 Other Symptoms or Health Problems Select Number: 8 Different Tasks and Activities Select Number: 10 Medication Select Number: 8 Total Score:: 8 Nutrition Survey Nutrition Survey Instructions Scoring Instructions Exercise - 60-day Assessment Visit Date of Eval: 02/09/24 Session #:: 23 Physician Prescribed Exercise Modalities: Treadmill, Airdyne and NuStep Frequency: 3x/week for 12 weeks [36 sessions] Intensity: 60-80% of age predicted maximum heart rate reserve Duration: 30 - 45 minutes Current METSs:: 5.7 Target Heart Rate:: 98-120 Current RPE:: 11-12 Maximum Excercise HR:: 116 Resting Blood Pressure: 134/90 Maximum Exercise Blood Pressure: 164/80 EKG Type: NSR to ST with rare pac and pvc. Rare vent trigeminy and quadrigeminy. Outcomes & Goals Goals:: Verbalizes understanding of THR, RPE & goal METS by session 6, Documents in home exercise log/reports 30 min aerobic 5 day/wk by DC, Demonstrates accurate pulse taking by DC and Other additional outcome/goals: see below Intervention & Plan Exercise Program Goals: Instruct on personal THR & RPE, Instruct on MET level & personal MET goal, Show patient to take own pulse /validate performance until accurate, Instruct on home exercise and Other additional plan/int 30-day Reassessments 30 day Reassessments:: Not Met Physical Activity Home Exercise Physical Activity - Home Exercise: Safe Exercise, Warm-up, Self-monitoring, Cool-Down, Home Exercise > 30 min Daily and Sitting Time <3 hours/daily Outcomes & Goals Outcomes/Goals: Demonstrates correct Warm-up/exercise Cool-Down (S3) if = 2.5 METs, Verbalizes symptoms of exercise intolerance by Session 3 (S3), Demonstrate safe equipment use (S3) & follows exercise prescrition (6) and Other: See below Intervention & Plan Plan/Intervention: Instruct warm-up & cool-down if exercising at > 2 METs, Instruct on symptoms of exercise intolerance & actions to take, Instruct & monitor on saf, Assess intial functional capacity & safety risk and Other See below 30-day Reassessments 30 day Reassessments:: Met Nutrition - 30-Day Assessment Weight Mgt (Other Care) Height: 6 ft Weight:: 211 lb BMI: 28.6 Nutrition - 60-Day Assessment Program Goals Nutrition Program Goals Patient has diagnosis of Hyperlipidemia (ICD E78)?: Yes Visit Date of Eval: 02/09/24 Session #:: 23 Cholesterol/Lipids (Other Core Measures) Determine presence & major risk factors that modify LDL goal: Cigarette smoking, Hypertension or hypertensive medication, Low HDL cholesterol <40 mg/dL*, Family history of premature CHD in Male < 55 years: female <65 yearsFa and Age men > 45 years; women >/= 55 years Outcomes/Goals: Pt IDs own risk factors & lifestyle modifications by Session 10, Verbalizes symptoms of angina & response by session 3., Pt independently manages and Other Additional Outcomes/Goals: Intervention/Plan: Advocate for lipid panel cholesterol medication if applicable, Instruct on personal lipid levels & lipid goals/NCEP guidelines, Instruct on cholesterol and Other additional plan/int Referral to dietitian:: Yes 30-day Reassessments:: Progressing Reassessment Notes & Comments:: pt would like to meet with a ambulance driver Diabetes (Other Core Measures) Diabetes Type: Not Applicable Weight Mgt (Other Care) Height: 6 ft Weight:: 211 lb BMI: 28.6 Diagnosis Overweight/Obesity BMI> 30% ICD-10 E66: No Diagnosis High BMI/Morbid Obesity BMI> 35% ICD-10 Z68: No Outcomes/Goals: Pt sets, maintains & shows weight loss goal & trend during rehab and Other additional outcomes/goals Intervention/Plan: Instruct on ideal BMI & set weight loss goal w/patient, Assist pt to ID & incorporate diet changes for weight loss by S9, Refer to Structured Weight Loss program as appropriate, Encourage goal of using 250-300dcal per session for weight loss and Other additional plan/interventions 30 day Reassessments:: Progressing Reassessment Notes & Comments:: pt would like to meet with a ambulance driver Healthy Eating Habits Will attend diet classes:: Yes Outcomes/Goals:: Consume diet rich in vegs,fruits,whole grain/high fiber,fish,lean meat, Limit sat/trans fats,cholesterol & added salts & sugars and Other additional outcome/goals: Intervention/Plan:: Assess current eating habits and Other Additional plan/interventions 30-day Reassessments:: Met Education Gave educational materials for:: Signs & symptoms of hypoglycemia, Signs & symptoms of hyperglycemia, Relate diabetes to coronary artery disease and Healthy eating Core - 60-Day Assessment Visit Date of Eval: 02/09/24 Medication Compliance Preventative Medication(s):: Aspirin, Statin/lipid and Beta edinson H/O mental health issues: depression, anxiety, or addiction?: No Doesn?t believe in the benefits of treatment?: No Believes medications are unnecessary or harmful?: No Has a concern about medication side effects?: No Expresses concern over the cost of medications?: No Outcomes/Goals: Verbalizes medications,desired effect & common side effects @ DC, Pt self-reports following medication regimen, Keeps card in wallet w/medications listed by DC and Other additional outcome/goals: Interventions/plans: Instruct on medication effects & side effects, Review medication list w/patient every two weeks, Instruct importance of taking meds as ordered & assist problem solving and Other additional 30-day Reassessments:: Progressing Reassessment Notes & Comments:: Losartan HCTZ added 12/08/23 Tobacco Use Tobacco Use: Non-smoker Hypertension Hypertension Diagnosis:: Hypertension ICD-10 I10 Resting Blood Pressure:: 134/90 [place] [employer] Hypertension Guidelines Peak Exercise Blood Pressure:: 164/80 Outcomes/Goals: Able to verbalize/achieve optimal blood pressure <130/80, Incorporates diet changes & exercise for blood pressure control by DC and Other additional outcomes/goals Interventions/plan: Instruct on optimal blood pressure, hypertension & medications, Instruct on effects of sodium, alcohol, stress, exercise &hypertension and Other additional plan/interventions 30 day Reassessments:: Progressing Reassessment Notes & Comments:: Losartan HCTZ added 12/08/23 Tobacco Cessation Referral Smoking Cessation Referral:: No Individual Education/Counseling:: No Education Schedule Given:: Yes Psychosocial - 30-Day Assess Target Goals Target Goals Outcomes/Goals: See list Psychosocial Outcomes/Goals:: ID's personal stressors & 2 strategies to manage stress by discharge and Other Additional outcome/goals: Psychosocial - 60-Day Assess VIsit Date of Eval: 02/09/24 Session #:: 23 History of previous Mental disease:: No Target Goals Target Goals Outcomes/Goals: See list Psychosocial Outcomes/Goals:: ID's personal stressors & 2 strategies to manage stress by discharge and Other Additional outcome/goals: Intervention/Plan: See List Interventions/Plan:: Assess stressors,coping strategies & signs of derpression on admission, Instruct/assist pt to develop coping & personal stress Mgt strategies, Refer to Behavioral Health if appropriate, Refer to Physician if appropriate, Instruct patient to recognize signs & symptoms of depression, Instruct patient to recog and Other additional plan/intervention 30-day Reassessments: 30 day Reassessments:: Met Psychosocial - 90-Day Assess Target Goals Target Goals Psychosocial - Final Assessmen Target Goals Target Goals Nutrition - 90-Day Assessment Weight Mgt (Other Care) Height: 6 ft Weight:: 211 lb BMI: 28.6 Nutrition - Final Assessment Weight Mgt (Other Care) Height: 6 ft Weight:: 211 lb BMI: 28.6
[2024-02-09 07:52] VITALS: BP 134/90; BMI 28.6
[2024-02-09 07:57] VITALS: BP 134/90
== END 2024-02-25 23:59 ==
LOC: CR 09:15
PROVIDERS: PCP Family Medicine; Referring Provider Internal Medicine Cardiovascular Disease; Visit Provider Internal Medicine Cardiovascular Disease
DX: Z95.1 Presence of aortocoronary bypass graft (principal); I25.10 Atherosclerotic heart disease of native coronary artery without angina pectoris; E78.2 Mixed hyperlipidemia; I10 Essential (primary) hypertension
CPT/HCPCS: 93798

== ENCOUNTER 2024-03-13 09:30 | Outpatient (RCR) | payer MEDICARE, SELFPAY ==
[2024-02-09 07:52] VITALS: BMI 28.6
[2024-02-26 00:15] VITALS: BP 116/80; BP 134/90
== END 2024-03-26 23:59 ==
LOC: CR 09:30
PROVIDERS: PCP Family Medicine; Referring Provider Internal Medicine Cardiovascular Disease; Visit Provider Internal Medicine Cardiovascular Disease
DX: Z95.1 Presence of aortocoronary bypass graft (principal); I25.10 Atherosclerotic heart disease of native coronary artery without angina pectoris; E78.2 Mixed hyperlipidemia; I10 Essential (primary) hypertension
CPT/HCPCS: 93798; 97802

== ENCOUNTER → 2024-05-21 | Outpatient (CLI) | payer MEDICARE, SELFPAY ==
[2024-02-09 07:52] VITALS: BMI 28.6
[2024-05-21 09:42] LABS: AST(SGOT) 31 U/L (15-37); Alanine Aminotransfer ALT/SGPT 56 U/L (16-61); Albumin, Serum 3.8 g/dL (3.2-5.0); Alkaline Phosphatase 74 U/L (45-117); Bilirubin, Direct 0.24 mg/dL (0.00-0.30); Cholesterol 82 mg/dL (200); Globulin 4.1 g/dL (2.2-4.2); High Density Lipoprotein 30 mg/dL; Protein, Total 7.9 g/dL (6.4-8.2); Triglycerides 194 mg/dL; Very Low Density Lipoprotein 39 mg/dL (5-40)
== END | disposition home or self-care (01) ==
LOC: LAB 08:12
PROVIDERS: PCP Family Medicine; Referring Provider Internal Medicine Cardiovascular Disease; Visit Provider Internal Medicine Cardiovascular Disease
DX: E78.5 Hyperlipidemia, unspecified (principal); I25.10 Atherosclerotic heart disease of native coronary artery without angina pectoris
CPT/HCPCS: 36415; 80061; 80076

== ENCOUNTER → 2024-11-25 | Outpatient (CLI) | payer MEDICARE, SELFPAY ==
[2024-02-09 07:52] VITALS: BMI 28.6
[2024-11-25 11:16] LABS: AST(SGOT) 27 U/L (15-37); Alanine Aminotransfer ALT/SGPT 47 U/L (16-61); Albumin, Serum 3.8 g/dL (3.2-5.0); Alkaline Phosphatase 62 U/L (45-117); Bilirubin, Direct 0.24 mg/dL (0.00-0.30); Cholesterol 97 mg/dL (200); Globulin 4.1 g/dL (2.2-4.2); High Density Lipoprotein 33 mg/dL; Protein, Total 7.9 g/dL (6.4-8.2); Triglycerides 192 mg/dL; Very Low Density Lipoprotein 38 mg/dL (5-40)
== END | disposition home or self-care (01) ==
PROVIDERS: PCP Family Medicine; Referring Provider Physician Assistant Medical; Visit Provider Physician Assistant Medical
DX: E78.2 Mixed hyperlipidemia (principal)
CPT/HCPCS: 36415; 80061; 80076

== ENCOUNTER → 2025-01-08 | Outpatient (CLI) | payer MEDICARE, SELFPAY ==
[2024-02-09 07:52] VITALS: BMI 28.6
[2025-01-08 13:03] LABS: Anion Gap 6 (5-15); BUN 20 mg/dL (7-18); Calcium,Total 9.3 mg/dL (8.5-10.1); Chloride 105 mmol/L (98-107); Creatinine, Serum 1.33 mg/dL (0.70-1.30); EST Glomerular Filtration Rate 57 mL/min (>60); Est Glom Filt Rate - Afr Amer 68 mL/min (>60); Glucose 113 mg/dL (74-106); Potassium 4.4 mmol/L (3.5-5.1); Sodium Level 138 mmol/L (136-145)
== END | disposition home or self-care (01) ==
LOC: MFPLAB 10:48
PROVIDERS: PCP Family Medicine; Referring Provider Family Medicine; Visit Provider Family Medicine
DX: N28.9 Disorder of kidney and ureter, unspecified (principal)
CPT/HCPCS: 36415; 80048

== ENCOUNTER → 2025-04-17 | Outpatient (CLI) | payer MEDICARE, SELFPAY ==
[2024-02-09 07:52] VITALS: BMI 28.6
[2025-04-17 12:06] LABS: AST(SGOT) 29 U/L (<=37); Alanine Aminotransfer ALT/SGPT 29 U/L (<=46); Albumin, Serum 3.9 g/dL (3.4-4.8); Alkaline Phosphatase 55 U/L (40-129); Bilirubin, Direct 0.34 mg/dL (0.00-0.30); Cholesterol 67 mg/dL (<=200); High Density Lipoprotein 32 mg/dL; Low Density Lipoprotein Calc. 14 mg/dL; Protein, Total 7.9 g/dL (5.9-8.4); Total Bilirubin 0.72 mg/dL (0.00-1.30); Triglycerides 105 mg/dL; Very Low Density Lipoprotein 21 mg/dL (5-40); cholesterol:hdl ratio screen 2.11
== END | disposition home or self-care (01) ==
PROVIDERS: PCP Family Medicine; Referring Provider Physician Assistant Medical; Visit Provider Physician Assistant Medical
DX: E78.2 Mixed hyperlipidemia (principal)
CPT/HCPCS: 36415; 80061; 80076

== ENCOUNTER → 2025-05-05 | Outpatient (CLI) | payer MEDICARE, SELFPAY ==
[2024-02-09 07:52] VITALS: BMI 28.6
--- NOTE | 2025-05-05 10:36 | ART_ITS ---
Reason For Study Reason For Study: Claudication Procedure A bilateral lower extremity continuous wave Doppler with analog waveform analysis and ankle brachial indexes. Left Segmental Pressures Left brachial= 142mmHg. Left posterior tibial artery = 157mmHg. Left dorsalis pedis artery = 146mmHg. Left digit = 137 mmHg. The left dorsalis pedis waveforms are triphasic. The left posterior tibial artery waveforms are triphasic. Right Segmental Pressures Right brachial= 140mmHg. Right posterior tibial artery = 173mmHg. Right dorsalis pedis artery = 150mmHg. Right digit = 87 mmHg. The right dorsalis pedis waveforms are triphasic. The right posterior tibial artery waveforms are triphasic. Indices The right ankle brachial index by the dorsalis pedis is 1.06. The right ankle brachial index by the posterior tibial artery is 1.22. The right digital-brachial index is 0.61. The left ankle brachial index by the dorsalis pedis is 1.02. The left ankle brachial index by the posterior tibial artery is 1.11. The left digital-brachial index is 0.96. VL/Ankle Brachial Index Interpretation Summary Right NURIA 1.22, normal. Doppler/PVR waveforms of the right ankle normal at rest . TBI diminished, pedal/digit disease vs spasm. Left NURIA 1.11, normal. TBI and Doppler/PVR waveforms of the left ankle normal a t rest. Ordering Physician: Cordelia Joy Referring Physician: CORDELIA JOY Performed By: ANTONY MAYORGA T
== END | disposition home or self-care (01) ==
LOC: CVS 10:34
PROVIDERS: PCP Family Medicine; Referring Provider Physician Assistant Medical; Visit Provider Physician Assistant Medical
DX: I73.9 Peripheral vascular disease, unspecified (principal)
CPT/HCPCS: 93922

== ENCOUNTER → 2025-05-28 | Outpatient (CLI) | payer MEDICARE, SELFPAY ==
[2024-02-09 07:52] VITALS: BMI 28.6
--- NOTE | 2025-05-28 13:47 | ECHOD_ITS ---
Reason For Study Reason For Study: TAA Procedure This was a 2D Doppler, Color Flow transthoracic echocardiogram. Exam performed in department. Left Ventricle Normal LV size. Left ventricular systolic function is normal. The left ventricular ejection fraction is 65 %. Stage 1 diastolic dysfunction. No regional wall motion abnormalities noted. Right Ventricle Normal RV size. Normal systolic function. Atria Normal left atrium. Normal right atrium. Mitral Valve Normal mitral valve. Mild (1+) eccentric mitral valve insufficiency. Tricuspid Valve Normal tricuspid valve. Mild tricuspid valve insufficiency. Pulmonary artery systolic pressure is 30 mmHg. Aortic Valve Trisinus/trileaflet aortic valve. Pulmonic Valve Normal pulmonic valve. Great Vessels Mildly dilated aortic root. The pulmonary artery is normal size. Inferior vena cava collapse with respiration. Pericardium/Pleural No pericardial effusion. MMode/2D Measurements & Calculations LVIDd: 4.6 cm IVSd: 1.1 cm Ao root diam: 3.8 cm LVIDs: 2.8 cm LVPWd: 1.3 cm RVDd: 4.0 cm FS: 39.6 % asc Aorta Diam: 4.1 cm LAV(MOD-bp): 31.3 ml LVAd ap4: 30.7 cm2 LAV(MOD-bp) Indexed: 14.1 ml/m2 LVLd ap4: 8.1 cm LAV(MOD-sp2): 32.3 ml EDV(MOD-sp4): 97.0 ml LAV(MOD-sp4): 30.1 ml EDV(sp4-el): 98.4 ml LVAs ap4: 17.3 cm2 LVLs ap4: 7.5 cm ESV(MOD-sp4): 34.2 ml ESV(sp4-el): 34.1 ml EF(MOD-sp4): 64.7 % EF(sp4-el): 65.4 % SV(MOD-sp4): 62.8 ml SV(sp4-el): 64.3 ml Ao sinus diam: 3.7 cm SI(MOD-sp4): 28.2 ml/m2 Ao ST Junction: 2.8 cm LA A4 area: 13.2 cm2 LA dimension(2D): 4.1 cm TAPSE: 1.2 cm RA A4 area: 16.7 cm2 Time Measurements MV dec time: 0.18 sec Doppler Measurements & Calculations MV E max mohamud: 52.6 cm/sec Lat Peak E' Mohamud: 11.9 cm/sec Med Peak E' Mohamud: 5.7 cm/sec MV A max mohamud: 56.4 cm/sec E/E' lat: 4.4 E/E' med: 9.2 MV E/A: 0.93 MV V2 max: 60.8 cm/sec MV P1/2t max mohamud: 58.2 cm/sec Ao V2 max: 82.1 cm/sec MV max P.5 mmHg MV P1/2t: 59.3 msec Ao max P.7 mmHg MV V2 mean: 30.3 cm/sec MV dec slope: 287.6 cm/sec2 Ao V2 mean: 59.6 cm/sec MV mean P.45 mmHg Ao mean P.6 mmHg MV V2 VTI: 23.1 cm MVA(P1/2t): 3.7 cm2 Ao V2 VTI: 19.2 cm AV (velocity ratio): 0.99 LV V1 max: 83.6 cm/sec PA V2 max: 110.7 cm/sec TR max mohamud: 254.8 cm/sec LV V1 max P.8 mmHg PA V2 mean: 60.4 cm/sec TR max P.0 mmHg LV V1 mean P.6 mmHg LV V1 mean: 59.7 cm/sec LV V1 VTI: 19.0 cm ECHO/Echo Complete Interpretation Summary Normal LV size. Left ventricular systolic function is normal. The left ventricular ejection fraction is 65 %. Mildly dilated aortic root. Stage 1 diastolic dysfunction. Pulmonary artery systolic pressure is 30 mmHg. Ordering Physician: Cordelia Quinn Referring Physician: Cordelia Quinn Performed By: Zeyad Connell RCS
== END | disposition home or self-care (01) ==
LOC: CVS 13:46
PROVIDERS: PCP Family Medicine; Referring Provider Physician Assistant Medical; Visit Provider Physician Assistant Medical
DX: I77.810 Thoracic aortic ectasia (principal); I73.9 Peripheral vascular disease, unspecified
CPT/HCPCS: 93306

== ENCOUNTER → 2025-07-30 | Outpatient (CLI) | payer MEDICARE, SELFPAY ==
[2024-02-09 07:52] VITALS: BMI 28.6
[2025-07-30 13:09] LABS: AST(SGOT) 33 U/L (<=37); Alanine Aminotransfer ALT/SGPT 39 U/L (<=46); Albumin, Serum 4.2 g/dL (3.4-4.8); Alkaline Phosphatase 57 U/L (40-129); Anion Gap 11 (5-15); BUN 21 mg/dL (4-19); BUN/Creat Ratio 15.0 RATIO (10-20); Calcium,Total 9.4 mg/dL (7.6-11.0); Carbon Dioxide 22.9 mmol/L (21.0-32.0); Chloride 102 mmol/L (98-108); Cholesterol 77 mg/dL (<=200); Globulin 3.2 g/dL (2.2-4.2); Glucose 100 mg/dL (70-99); Low Density Lipoprotein Calc. 16 mg/dL; Potassium 4.3 mmol/L (3.3-5.1); Triglycerides 163 mg/dL; Very Low Density Lipoprotein 33 mg/dL (5-40); cholesterol:hdl ratio screen 2.67
== END | disposition home or self-care (01) ==
LOC: MFPLAB 10:18
PROVIDERS: PCP Family Medicine; Visit Provider Family Medicine
DX: E78.1 Pure hyperglyceridemia (principal)
CPT/HCPCS: 36415; 80053; 80061

== ENCOUNTER 2025-08-17 22:41 | Emergency (ER) | payer MEDICARE, SELFPAY ==
[2024-02-09 07:52] VITALS: BMI 28.6
[2025-08-17 22:42] VITALS: BP 148/89; PULSE 80; RESP 16; TEMP 36.8; O2SAT 98; BMI 30.2
--- NOTE | 2025-08-17 22:46 | EX.ED.VIS.UR ---
HPI HPI - URI History of Present Illness Chief Complaint: Ear Problem Informant: patient Onset/Context/Timing Onset: Weeks (1) Context: Gradual Onset Timing: Continuous Quality: Sharp Location: Right ear Worsened by: - (Palpation) Relieved by: - (Nothing) Associated Symptoms Associated Symptoms: Positive for Headache; Negative for Nasal Congestion, Sinus Pressure, Myalgias, Nausea, Vomiting, Diarrhea, Shortness of Breath, Chest Pain, Nonproductive cough, Hemoptysis or Productive Cough Narrative Narrative: Patient presents with right ear pain that has been getting progressively worse over the past week. Patient states the pain is sharp. Patient states it is worse when he pushes in the front of his right ear. Patient states nothing makes it better. Patient denies any fevers or chills. Patient denies any chest pain or shortness of breath. Patient denies any tinnitus or hearing changes. Patient denies any sore throat or cough. ROS ROS ED Constitutional Constitutional ED: Denies chills or fever(s) Eyes Eyes: Denies blurry vision or change in vision ENT ENT ED: Reports ear pain right; Denies rhinorrhea or sore throat Cardiovascular Cardiovascular: Denies chest pain or palpitations Respiratory/Chest Respiratory/Chest: Denies cough or dyspnea Gastrointestinal Gastrointestinal: Denies nausea or vomiting Genitourinary Genitourinary ED: Denies dysuria or hematuria Musculoskeletal Musculoskeletal: Reports back pain; Denies neck pain Integumentary Denies abscess or rash Neurologic Neurologic: Denies headache(s) or weakness Allergic/Immunologic Allergic/Immunologic ED: Denies mouth swelling or urticaria PFSH PFSH Medical History Ascending aorta dilatation Acute blood loss anemia Atherosclerosis of coronary artery of [place] heart without angina pectoris Hyperlipidemia Essential hypertension Unstable angina Tobacco use ACS (acute coronary syndrome) Smoker Home Medications ?Medication ?Instructions ?Recorded ?Last Taken ?Type aspirin 81 mg capsule 81 mg PO DAILY heart health 09/27/23 09/27/23 History latanoprost 0.005 % eye drops 1 drp ophthalmic (eye) Q glaucoma 09/27/23 09/26/23 History acetaminophen 500 mg tablet 1,000 mg PO TID PRN 11/22/23 Unknown History multivitamin 1 tab PO DAILY 02/16/24 Unknown History omega 8-fqk-zcg-fish oil 300 1 cap PO DAILY 02/16/24 Unknown History mg-1,000 mg capsule (Fish Oil) losartan 100 1 tab PO DAILY #90 tabs 12/31/24 Unknown Rx mg-hydrochlorothiazide 12.5 mg tablet atorvastatin 40 mg tablet 40 mg PO QDAY 04/23/25 Unknown History furosemide 20 mg tablet (Lasix) 20 mg PO QAM PRN edema #30 tabs 05/20/25 Unknown Rx hydrocodone-acetaminophen 5-325mg 1 tab PO Q6H PRN PRN Pain 3 days 08/18/25 Unknown Rx 5mg-325mg #10 TABLETS Allergy/AdvReac Type Severity Reaction Status Date / Time lisinopril Allergy PT UNSURE Verified 08/17/25 22:47 OF REACTION Family History Father Kidney disease CAD (coronary artery disease) CABG-65 Diabetes Mother Cancer Ovarian- mid 80s. Sister Lupus Grandfather CAD (coronary artery disease) 50s- sudden Surgical History History of coronary artery bypass surgery (10/03/23) History of left heart catheterization (09/28/23) Social History household members: spouse Smoking Status: Former smoker quit date: 09/05/23 alcohol intake: current alcohol intake frequency: holidays/special occasions only substance use type: does not use caffeine: Yes Type: coffee Number of servings: 3 EXAM Physical Exam Const Vital Signs: 08/17/25 22:42 Temperature 98.3 F Temperature Source Oral Pulse Rate 80 Respiratory Rate 16 Blood Pressure 148/89 H Blood Pressure Mean 108 Pulse Ox 98 Oxygen Delivery Method Room Air Positive well nourished and well developed Constitutional Narrative: BMI is 30.3. General Appearance ED: well developed and NAD HEENT Reports moist mucous membranes HEENT Narrative: The right tympanic membrane is clear. There is some narrowing of the right external auditory canal. There is no erythema. There is pain with manipulation of the external ear on the right. There is tenderness over the right temporal artery. The left tympanic membrane has a tympanostomy tube in place. There is no erythema. There is some mild cerumen noted. normocephalic Neck supple and no JVD Resp normal respiratory effort and clear to auscultation bilaterally Cardio Rate: regular rate Rhythm: regular rhythm GI non-tender and non-distended Palpation: soft Neuro oriented x3, CN's II-XII intact bilaterally and no sensory deficits noted Sensorium / Orientation: alert Motor Exam: strength 5/5 throughout Psych mental status grossly normal MDM MDM MDM Narrative Medical decision making narrative: Differential diagnosis includes otitis externa, migraine headache, temporal arteritis, intracranial bleeding, and tension headache. CT scan of the brain will be obtained to assess for intracranial bleeding and mass. CBC will be obtained to assess for leukocytosis and anemia. Basic metabolic profile will be obtained to assess for electrolyte abnormality and renal function. Sed rate will be obtained to assess for temporal arteritis. History & Record Review Additional record(s) reviewed:: Prior labs Lab Data Attestation: I reviewed the patient's lab results. Lab results narrative: CBC was reviewed and was within normal limits. Basic metabolic profile was reviewed. BUN was slightly elevated at 25 and creatinine was 1.53. These are consistent with previous results. Sed rate was reviewed and was normal at 10. Labs: Laboratory Results - last 24 hr 08/17/25 23:09 WBC 5.5 RBC 4.48 L Hgb 13.8 Hct 40.3 MCV 90.0 MCH 30.8 MCHC 34.2 RDW Std Deviation 43.7 RDW Coeff of Kushal 13.2 Plt Count 128 L MPV 9.8 Immature Gran % (Auto) 0.200 Neut % (Auto) 49.0 Lymph % (Auto) 36.7 Howard % (Auto) 9.3 Eos % (Auto) 4.4 Baso % (Auto) 0.4 Absolute Neuts (auto) 2.7 Absolute Lymphs (auto) 2.02 Nucleated RBC % 0 ESR 10 Sodium 139 Potassium 3.8 Chloride 105 Carbon Dioxide 24.3 Anion Gap 11 BUN 25 H Creatinine 1.53 H Estim Creat Clear Calc 55.34 Est GFR (MDRD) Non-Af 49 L BUN/Creatinine Ratio 16.2 Glucose 126 H Calcium 9.0 Radiography Diagnostic Testing: Clinical Impression(s) from Imaging Studies Brain CT 08/17/25 23:03 IMPRESSION: No intracerebral or extra axial hemorrhage. No acute cerebrovascular insult. If clinical symptoms persist, further evaluation with MRI may be considered as clinically warranted. Right frontal periventricular small hypodense area of CSF like density that could represent chronic lacunar infarct versus small neuroglial cyst. Bilateral cerebral mild microvascular ischemic changes. Reading Location: [place] [id number] CT scan of the brain was obtained. There is no acute intracranial abnormality. There is no evidence of any mass or abscess. This was interpreted by the radiologist and was also independently reviewed by myself. Treatment and Re-Evaluation Narrative: Patient was given dose of morphine. Patient was feeling better on reevaluation but stated his pain was starting to return. Patient was given a dose of Erick here. Patient was advised that this could be trigeminal neuralgia. Patient was given a prescription for Erick. Patient was instructed to follow-up with his primary care physician or ENT in 5 to 7 days. Patient understood and was agreeable with the plan. All questions were answered. Discharge Plan Triage Chief Complaint: Ear Problem ED Provider: Jose Alberto Rachel Dx/Rx/DC Orders Clinical Impression: Acute pain of right ear, Essential hypertension Instructions: ED Pain, Acute, Uncertain Cause Prescriptions: New hydrocodone-acetaminophen 5-325 mg tablet 1 tab PO Q6H PRN PRN (Reason: Pain) 3 Days Qty: 10 0RF No Action acetaminophen 500 mg tablet 1,000 mg PO TID PRN omega 1-iev-blv-fish oil [Fish Oil] 300-1,000 mg capsule 1 cap PO DAILY multivitamin Tablet 1 tab PO DAILY atorvastatin 40 mg tablet 40 mg PO QDAY latanoprost 0.005 % drops 1 drp ophthalmic (eye) QHS aspirin 81 mg capsule 81 mg PO DAILY losartan-hydrochlorothiazide 100-12.5 mg tablet 1 tab PO DAILY Qty: 90 3RF furosemide [Lasix] 20 mg tablet 20 mg PO QAM PRN (Reason: edema) Qty: 30 0RF Primary Care Provider: Juan Sousa Referrals: Kit Escobar MD [Med Staff - Active Staff, Ear Nose Throat (ENT)] - 5-7 Days Juan Sousa MD [Primary Care Provider, Family Practice] - 5-7 Days Print Language: [place] Disposition Disposition: Home, Self Care
--- NOTE | 2025-08-17 23:03 | CT_ITS ---
PROCEDURE: BRAIN/HEAD WITHOUT CONTRAST 08/18/2025 REASON FOR EXAM: PAIN TECHNIQUE: Procedure Code: CTBR Modality: CT Procedure: BRAIN/HEAD WITHOUT CONTRAST Coronal and Sagittal reconstruction series were provided. One or more dose reduction techniques were used (e.g., Automated exposure control, adjustment of the mA and/or kV according to patient size, use of iterative reconstruction technique. RADIATION DOSE SUMMARY: CTDI Vol 44.99 mGy DLP :846.73 mGycm COMPARISON: none FINDINGS: Right frontal periventricular small hypodense area of CSF like density that could represent chronic lacunar infarct versus small neuroglial cyst. Relatively accentuated bilateral cerebral periventricular deep white matter hypodensities suggesting hypoperfusion. Oswald-white matter differentiation is maintained. Normal CT appearance of the posterior fossa structures. No intracerebral or extra axial hemorrhage. No definite calvarial fractures. Unremarkable ventricular system. No midline shifts or deformity. The osseous structures in the skull base are unremarkable. The scanned paranasal sinuses show left maxillary sinusitis. Vascular atheromatous calcifications. CT/Brain/Head without Contrast IMPRESSION: No intracerebral or extra axial hemorrhage. No acute cerebrovascular insult. If clinical symptoms persist, further evaluati on with MRI may be considered as clinically warranted. Right frontal periventricular small hypodense area of CSF like density that cou ld represent chronic lacunar infarct versus small neuroglial cyst. Bilateral cerebral mild microvascular ischemic changes. Reading [facility] [id number]
--- OUTSIDE RECORDS SUMMARY | 2025-08-17 23:13 | XMS RPT_ITS | CCD ---
Author Organization [facility] CliniSyhi Care Team Providers Care Systems Integration Analyst Name Role Phone JUAN SOUSA Consulting Unavailable KATRINA BORRERO DPM Attending Unavailable KATRINA BORRERO DPM Primary Care Unavailable KATRINA BORRERO DPM Admitting Unavailable PROVIDER, UNKNOWN Consulting Unavailable Juan Sousa Unavailable Natalya COWAN, Dr. Patrice Gonsalez Referring Yassine Hoang II, Dr. Patrice Gonsalez Attending Yassine Sousa, Dr. Martinez Jose Primary Care Unavail able Merry, Dr. Martinez Primary Care Provider Dr. Juan Sousa Referring Provider Dr. Juan Sousa Other Provider Dr. Tapan Nicolas Attending Provider Dr. Toney Hoang Emergency Provider Dr. Edward Smith Admit Provider Dr. Edward Smith Attending Provider Dr. Edward Smith Other Provider Dr. Tapan Nicolas Other Provider Dr. Catrina Merino Other Provider Dr. Catrina Merino Attending Provider Dr. Juan Sousa Primary Care Provider Dr. Juan Sousa Referring Provider Dr. Juan Sousa Other Provider Dr. Tapan Nicolas Attending Provider Dr. Toney Hoang Emergency Provider Tereletsky, Dr. Edward Admit Provider Dr. Edward Smith Attending Provider Dr. Edward Smith Other Provider Dr. Tapan Nicolas Other Provider Dr. Catrina Merino Other Provider Angelique, Dr. Catrina Call Attending Provider Juan Sousa MD Primary Care Provider Juan Sousa MD Primary Care Provider Dr. Tapan Nicolas Referring Provider JUAN SOUSA Primary Care Unavailable KELVIN, JACQUELIN Attending Unavailable JEANGELO, JACQUELIN Attending Unavailable SOUSA, JUAN Primary Care Unavailable KELVIN, JACQUELIN Attending Unavailable MERRY, JUAN Primary Care Unavailable MERRY, JUAN Primary Care Unavailable RICARDA, KRISTIE Consulting Unavailable KIT BEVERLY Admitting Unavailable MAYOKIT Lion Attending Unavailable EDUARDOASD, RAOUL Referring Unavailab le Steve SURGICAL APPLIANCE FITTER, SURGICAL APPLIANCE FITTER-C Patrice Alvarado Attending Provider Dr. Nikolai Stephens Attending Provider Dr. Juan Sousa Primary Care Provider Dr. Toney Hoang Emergency Provider Dr. Edward Smith Admit Provider Dr. Edward Smith Other Provider Dr. Tapan Nicolas Attending Provider Dr. Tapan Nicolas Other Provider Dr. Juan Sousa Referring Provider Dr. Juan Sousa Primary Care Provider Dr. Juan Sousa Referring Provider Roof SURGICAL APPLIANCE FITTER, SAMARA-Ren Alvarado Attending Provider Dr. Nikolai Stephens Attending Provider Dr. Juan Sousa Primary Care Provider Merry, Dr. Martinez Referring Provider Merry GRANADOS, Dr. Martniez Primary Care Provider Merry GRANADOS, Dr. Martinez Attending Provider Merry GRNAADOS, Dr. Martinez Referring Provider Jeri Nicolas Attending Provider Jeri Nicolas Referring Provider Merry GRANADOS, Dr. Martinez Primary Care Provider Merry GRANADOS, Dr. Martinez Referring Provider Mitchell GRANADOS, Dr. Abrams Attending Provider Stanford GRANAODS, Dr. Dominguez Attending Provider Merry GRANADOS, Dr. Martinez Primary Care Physician Jeri Nicolas Attending Physician Mitchell GRANADOS, Dr. Abrams Attending Physician Stanford GRANADOS, Dr. Dominguez Attending Physician Merry GRANADOS, Dr. Martinez Attending Physician Jeri Nicolas Referring Unavail able Jeri Nicolas Attending Unavail able Juan Sousa Primary Care Unavailable Jeri Nicolas Attending Unavail able Juan Sousa Referring Unavailable Sousa, Juan Primary Care Unavailable Merry, Juan Primary Care Unavailable Alberto Coyne Attending Unavailable Merry, Juan Primary Care Unavailable Jeri Nicolas Referring Unavail able Jose Alberto Medrano Attending Unavailable Jeri Nicolas Attending Unavail able Juan Sousa Primary Care Unavailable Jeri Nicolas Referring Unavail able Jeri Nicolas Attending Unavail able Juan Sousa Primary Care Unavailable Jeri Nicolas Referring Unavail able Juan Sousa Attending Unavailable Juan Sousa Primary Care Unavailable Sousa, Juan Primary Care Unavailable Jeri Nicolas Referring Unavail able Jeri Nicolas Attending Unavail able Sousa, Juan Primary Care Unavailable Sousa, Juan Attending Unavailable Sousa, Juan Referring Unavailable Allergies Allergy Classification Reported Allergen(s) Allergy Type Date of Onset Reaction(s) Facility (16 sources) Lisinopril Drug Allergy 0 PT UNSURE OF REACTION [facility] (4 sources) Lisinopril Propensity to adverse reactions 3 [facility] (1 source) Lisinopril Drug Allergy 5 [facility] Repository Medications Current Medications Medication Drug Class(es) Dates Sig (Normalized) Sig (Original) acetaminophen 500 mg oral tablet (20 sources) Start: 11-22-2023 End: 11-22-2023 take 2 tablets by mouth three times daily as needed Start: 11-22-2023 End: 11-22-2023 take 1000 mg by mouth three times daily Acetaminophen Active 1000 MG PO THREE TIMES A DAY November 22, 2023 10:34am Start: 10-07-2023 End: 10-17-2023 take 2 tablets by mouth every eight hours acetaminophen (Tylenol) 500 MG tablet Take 2 tablets (1,000 mg) by mouth in the morning and 2 tablets (1,000 mg) at noon and 2 tablets (1,000 mg) before bedtime. Do all this for 10 days. 0 10/07/2023 10/17/2023 Active Start: 10-03-2023 End: 10-17-2023 take 1000 mg by mouth every eight hours atorvastatin 40 mg oral tablet (20 sources) HMG-CoA Reductase Inhibitor Start: 02-16-2024 End: 04-23-2025 take 1 tablet by mouth once daily Start: 09-29-2023 End: 02-16-2024 take 1 tablet by mouth once daily Atorvastatin 80 mg tablet Discontinued 80 mg PO DAILY November 22, 2023 10:38am February 16, 2024 10:50am [place] 8-Xni-Nhl-Fish Oil (7 sources) Start: 02-16-2024 Start: 02-16-2024 [place] 3-Dha-Ep a-Fish Oil (Fish Oil) 300-1,000 mg capsule Active 1 NMA PO DAILY February 16, 2024 12:00am Start: 02-16-2024 take 300-1000 mg by mouth once daily [place] 8-Ani-Tol-Fish Oil (Fish Oil) 300-1,000 mg capsule Active 1 CAP PO DAILY February 16, 2024 12:00am furosemide 20 mg oral tablet (7 sources) Loop Diuretic Start: 04-23-2025 End: 05-20-2025 take 1 tablet by mouth once daily in the morning as needed for edema hydroCHLOROthiazide 12.5 mg / losartan potassium 100 mg oral tablet (20 sources) Thiazide Diuretic, Angiotensin 2 Receptor Edinson Start: 12-08-2023 End: 12-31-2024 Start: 12-08-2023 take 1 tablet by doe once daily Losartan-Hydrochlorothiazide Active 1 TA BLET PO DAILY December 08, 2023 1:00am Start: 09-27-2023 End: 11-22-2023 Losartan-Hydrochlorothiazide 100-12.5 mg tablet Discontinued 1 {tbl} PO DAILY September 27, 2023 12:00am November 22, 2023 10:02am Start: 09-27-2023 End: 11-22-2023 take 1 tablet by mouth once daily Losartan-Hydrochlorothiazide Discontinue d 1 TABLET PO DAILY September 27, 2023 12:00am November 22, 2023 10:02am End: 10-07-2023 latanoprost 0.05 mg/ml ophth almic solution (20 sources) Prostaglandin Analog Start: 09-27-2023 Start: 09-27-2023 End: 10-07-2023 Latanoprost Active 1 DRP OPH THALMIC AT BEDTIME September 27, 2023 12:00am Multivitamin preparation (2 sources) Start: 02-16-2024 take 1 tablet by mouth once daily Multivitamin Active 1 TABLET PO DAILY February 16, 2024 12:00am Multivitamin tablet (5 sources) Start: 02-16-2024 Start: 02-16-2024 Multivitamin t ablet Active 1 {tbl} PO DAILY February 16, 2024 12:00am oxyCODONE hydrochloride 5 mg oral tablet (2 sources) Opioid Agonist Start: 10-07-2023 End: 10-14-2023 take 1 tablet by mouth every six hours as needed for pain oxyCODONE (Roxicodone) 5 MG immediate release tablet Indications: S/P CABG (coronary artery bypass graft) Take 1 tablet (5 mg) by mouth every 6 hours as needed for severe pain (7-10) for up to 7 days. 28 tablet 0 10/07/2023 10/14/2023 Active Completed/Discontinued Medications Medication Drug Class(es) Dates Sig (Normalized) Sig (Original) 20 ml albumin human, snf 250 mg/ml injection (2 sources) Human Serum Albumin Start: 10-03-2023 End: 10-03-2023 50 g, IntraVENous, at 200 mL/hr, Administer over 1 Hours, Once, On Mon10/03/23 at 1300, For 1 dose Start: 10-03-2023 End: 10-07-2023 25 g, IntraVENous, As needed , fluid bolus challenge PRN: PAD below goal (18) and/or Low BP (less than 90 SBP and/or less than 60 MAP) and/or Low urine output (less than 30ml/hr) per hemodynamic goals, Starting on Mon10/03/23 at 1248, For 2 doses, Phase II/On Unit, To be given in conjunction with PRN 250ml Lactate Ringer Bolus Use if hgb greater than 7.5 and PAD below goal (18) and/or Low BP (less than 90 SBP and/or less than 60 MAP) and/or Low urine output (less than 30ml/hr) per hemodynamic goals If hemodynamic goals unattained, proceed to second fluid bolus challenge If hgb less than 7.5 notify surgeon for orders. albuterol 0.833 mg/ml / ipratropium bromide 0.167 mg/ml inhalation solution (1 source) Anticholinergic, beta2-Adrenergic Agonist Start: 10-03-2023 End: 10-07-2023 3 mL, Nebulization, 3 times daily PRN, wheezing, shortness of breath, Starting on Mon10/03/23 at 1248, Recovery & On Unit aspirin 81 mg chewable tablet (20 sources) Platelet Aggregation Inhibitor, Nonsteroidal Anti-inflammatory Drug Start: 10-04-2023 End: 10-07-2023 take 324 mg by mouth once daily 324 mg, Oral, Daily, First dose on Mon10/04/23 at 0900 Start: 09-29-2023 End: 10-03-2023 take 81 mg by mouth once daily 81 mg, Oral, Daily, Fir st dose on Mon09/29/23 at 1000 Start: 09-27-2023 take 1 capsule by mouth once d aily take 1 tablet by mouth once ignacio y aspirin 81 MG EC tablet Take 81 mg by mouth daily. 0 Active Aspirin 81 MG TA BS Quantity: 0 Refills: 0 Ordered: 08-Jun-2023 DO Active calcium chloride 0.0014 meq/ml / potassium chloride 0.004 meq/ml / sodium chloride 0.103 meq/ml / sodium lactate 0.028 meq/ml injectable solution (2 sources) Start: 10-03-2023 End: 10-07-2023 500 mL, IntraVENous, at 500 mL/hr, Administer over 1 Hours, Once, On Mon10/03/23 at 1300, For 1 dose 100 ml calcium gluconate 20 mg/ml injection (1 source) Start: 10-03-2023 End: 10-07-2023 2,000 mg, IntraVENous, at 50 mL/hr, Administer over 2 Hours, PRN, ionized calcium less than 4.3, Starting on Mon10/03/23 at 1248, Recovery & On Unit, Give 2000 mg for ionized calcium less than 4.3 premix bag carvedilol 6.25 mg oral tablet (1 source) alpha-Adrenergic Edinson, beta-Adrenergic Edinson Start: 09-29-2023 End: 10-03-2023 6.25 mg, Oral, 2 times daily with meals, First dose on Mon09/29/23 at 1000, Hold for SBP less than 105 and/or MAPs less than 65 and/or HR less than 60, , On hold since Mon10/02/2023 at 1603 until manually unheld ceFAZolin 2000 mg injection (1 source) Cephalosporin Antibacterial Start: 10-03-2023 End: 10-04-2023 take 2000 mg intravenously every eight hours 2,000 mg, IntraVENous, Administer over 30 Minutes, Every 8 hours, First dose on Mon10/03/23 at 1300, For 5 doses, Phase II/On Unit, premix bag, Suspected Indication (Select all that apply): Surgical Prophylaxis chlorhexidine gluconate 1.2 mg/ml mouthwash (2 sources) Start: 10-02-2023 End: 10-07-2023 take 15 mL by mouth twice daily 15 mL, Mouth/Throat, 2 times daily, First dose on Mon10/03/23 at 1300, For 7 days, Phase II/On Unit, Rinse and spit. Do not swallow. cholecalciferol 9.52 unt/ml / glucose 357 mg/ml oral gel (1 source) Vitamin D Start: 10-03-2023 End: 10-07-2023 15 g, Oral, As needed, low blood sugar, Starting on Mon10/03/23 at 1248, Recovery & On Unit, If blood glucose less than 50 mg/dL and patient ALERT and NOT NPO, give 2 tubes glucose gel. If blood glucose less than 70 mg/dL and patient ALERT and NOT NPO, give 1 tube glucose gel. Repeat blood glucose in 15 minutes. If blood glucose is less than 70 mg/dL, repeat treatment and recheck blood glucose in 15 minutes x2 and notify provider. cloNIDine hydrochloride 0.2 mg oral tablet (16 sources) Central alpha-2 Adrenergic Agonist Start: 06-14-2020 End: 11-22-2023 take 1 tablet by mouth every eight hours as needed Clonidine Hcl 0.2 MG tablet Discontinued 0.2 mg PO Q8H as needed for SBP>175 15 0 June 14, 2020 11:05pm November 22, 2023 10:02am docusate sodium 50 mg / sennosides, snf 8.6 mg oral tablet (1 source) Start: 10-03-2023 End: 10-07-2023 take 2 tablets by mouth once daily for constipation 2 tablet, Oral, Nightly, First dose on Mon10/03/23 at 2100, Recovery & On Unit, Bowel Regimen - for prevention of constipation. 0.4 ml enoxaparin sodium 100 mg/ml prefilled syringe (1 source) Low Molecular Weight Heparin Start: 09-29-2023 End: 10-03-2023 inject 40 mg by subcutaneous injection every twenty-four hours 40 mg, SubCUTAneous, Every 24 hours scheduled (Daily), First dose on Mon09/29/23 at 0900, Indication of Use: Prophylaxis-DVT/PE , Indications: Prophylaxis of Venous Thromboembolism EPINEPHrine 5mg in 0.9% sodium chloride 250 mL infusion (weight-based) (1 source) Start: 10-03-2023 End: 10-04-2023 0.01-0.2 mcg/kg/min 96.2 kg (2.886-57.72 mL/hr, rounded to 2.89-57.72 mL/hr), IntraVENous, Continuous PRN, Initiate if Cardiac Index below 2.0; SBP less than 90 mmHg; and PAD above 18, Starting on Mon10/03/23 at 1248, Recovery & On Unit, Titrate by 0.01 mcg/kg/min no faster than every 5 minutes to goal May titrate outside of defined titration parameters (increments and frequency) under the direction of the provider. If cardiac index above hemodynamic goal, SBP above hemodynamic goal, and PAD above hemodynamic goal, wean drip, re-evaluate, once hemodynamic parameters are back within range; resume drip using previous ordered parameters. For unstable, emergent situation, may titrate accordingly to meet hemodynamic goal. Goal MAP greater than 65 less than 80 Goal SBP greater than 90 less than 130, Titrate Infusion? Yes, Initial Infusion Dose: Other, Other (mcg/min): 0.01 mcg/kg/min, Goal of Therapy is: Other, MAP greater than 65 mmHg, Other Goal: Refer to Hemodynamic Goals nursing order, Contact Provider if: Patient is receiving the maximum dose and is not achieving the goal of therapy glucagon (rdna) 1 mg injection (1 source) Antihypoglycemic Agent Start: 10-03-2023 End: 10-07-2023 1 mg, IntraMUSCular, PRN, low blood sugar, Blood glucose less than 70 mg/dL and patient NOT ALERT or NPO and does not have IV access., Starting on Mon10/03/23 at 1248, Recovery & On Unit, After administration, attempt intravenous access and start D5W at 100 mL/hr. Repeat blood glucose in 15 minutes x2 and notify provider. 150 ml glucose 50 mg/ml injection (2 sources) Start: 10-03-2023 End: 10-07-2023 12.5 g, IntraVENous, PRN, low blood sugar, Blood glucose less than 70 mg/dL and patient NOT ALERT or NPO., Starting on Mon10/03/23 at 1248, Recovery & On Unit, If patient does not respond within 5 minutes, repeat dose x1. Start D5W at 100 mL/hour until ordering provider can be reached. Repeat blood glucose in 15 minutes. If blood glucose is less than 70 mg/dL, repeat treatment and recheck blood glucose in 15 minutes x2. If using Glucostabilizer, dose as instructed per system. Start: 10-03-2023 End: 10-07-2023 100 mL/hr, IntraVENous, PRN, Blood sugar less than 70mg/dL, Starting on Mon10/03/23 at 1248, Recovery & On Unit, Start infusion following administration of dextrose 50% or glucagon. 0.5 ml heparin sodium, porcine 57021 unt/ml prefilled syringe (1 source) Unfractionated Heparin, Anti-coagulant Start: 10-04-2023 End: 10-07-2023 inject 5000 [IU] by subcutaneous injection twice daily 5,000 Units, SubCUTAneous, 2 times daily, First dose on Mon10/04/23 at 0900 hydroCHLOROthiazide (1 source) Thiazide Diuretic hydroCHLOROthiazide CAPS Quantity: 0 Refills: 0 Ordered: 08-Jun-2023 DO Active 100 ml insulin, regular, human 1 unt/ml injection (1 source) Insulin Start: 10-03-2023 End: 10-04-2023 1-50 Units/hr (1-50 mL/hr), IntraVENous, Continuous, Starting on Mon10/03/23 at 1300, Recovery & On Unit, As guided by calculator flowsheet Low target: 120 High target: 160 Hold insulin infusion if BS< 100 mg/dl, if BS < 70 mg/dl follow hypoglycemia treatment orders, continue to check BS as ordered, and restart insulin infusion if and when BS increases back into goal range. BUD: 30 days at room temperature lidocaine 0.04 mg/mg medicated patch (1 source) Antiarrhythmic, Amide Local Anesthetic Start: 10-03-2023 End: 10-07-2023 1 patch, Topical, Administer over 12 Hours, Daily, First dose on Mon10/03/23 at 1300, Recovery & On Unit, Cut in half and place on both sides of the incision. Patch may remain in place for up to 12 hours in any 24 hour period. Losartan (1 source) Angiotensin 2 Receptor Edinson Losartan Potassium TABS Quantity: 0 Refills: 0 Ordered: 08-Jun-2023 DO Active magnesium hydroxide 80 mg/ml oral suspension (2 sources) Start: 10-05-2023 End: 10-06-2023 take 1 dose by mouth every twenty-four hours for constipation 30 mL, Oral, Daily, First dose (after last modification) on Mon10/05/23 at 0715, Recovery & On Unit, 1st line for treatment of constipation - give scheduled if no bowel movement in past 24 hours Start: 10-01-2023 End: 10-01-2023 take 8 [oz_av] by mouth once 30 mL, Oral, Once, On 10/01/23 at 1045, For 1 dose, Follow dose with 8 oz of water. methocarbamol 500 mg oral tablet (17 sources) Muscle Relaxant Start: 11-22-2023 End: 02-16-2024 take 1 tablet by mouth every eight hours as needed Methocarbamol 500 mg tablet Discontinued 500 mg PO Q8H as needed November 22, 2023 1:00am February 16, 2024 10:20am Start: 10-07-2023 End: 11-08-2023 take 1 tablet by mouth every eight hours as needed methocarbamol (Robaxin) 500 MG tablet Take 1 tablet (500 mg) by mouth every 8 hours as needed for muscle spasms for up to 5 days. 15 tablet 0 10/07/2023 11/08/2023 Discontinued (Therapy completed) Start: 10-05-2023 End: 10-07-2023 take 1 dose by mouth three times daily 500 mg, Oral, Every 8 hours scheduled (3 times per day), First dose (after last modification) on Lexis 10/05/23 at 1400 2 ml metoclopramide 5 mg/ml prefilled syringe (1 source) Dopamine-2 Receptor Antagonist Start: 10-05-2023 End: 10-05-2023 take 10 mg intravenously every six hours 10 mg, IntraVENous, Every 6 hours, First dose on Lexis 10/05/23 at 0715, Recovery & On Unit, Give IV if patient is unable to take orally. metoprolol tartrate 25 mg oral tablet (16 sources) beta-Adrenergic Edinson Start: 10-04-2023 End: 04-23-2025 take 1 tablet by mouth twice daily Metoprolol Tartrate 25 mg tablet Discontinued 25 mg PO TWICE A DAY November 22, 2023 1:00am April 23, 2025 11:08am mirtazapine 15 mg disintegrating oral tablet (1 source) Start: 10-02-2023 End: 10-03-2023 take 1 tablet by mouth once daily 15 mg, Oral, Nightly, First dose on 10/02/23 at 2100, Remove from blister pack and dissolve tablet on tongue. Do not chew, crush, or split. Multivitamin (Daily Multi-Vitamin) tablet (14 sources) Start: 09-27-2023 End: 11-22-2023 Multivitamin (Daily Multi-Vitamin) tablet Discontinued 1 {tbl} PO DAILY September 27, 2023 12:00am November 22, 2023 10:03am supplement Start: 09-27-2023 End: 11-22-2023 Multivitamin (Daily Multi-Vi tamin) tablet Discontinued 1 {tbl} PO DAILY September 27, 2023 12:00am November 22, 2023 10:03am Start: 09-27-2023 End: 11-22-2023 take 1 tablet by mouth once daily Multivitamin (Daily Multi-Vitamin) tablet Discontinued 1 TABLET PO DAILY September 27, 2023 12:00am November 22, 2023 10:03am Start: 09-27-2023 End: 11-22-2023 take 1 tablet by mouth once daily Multivitamin (Daily Multi-Vitamin) tablet Discontinued 1 TABLET PO DAILY September 26, 2023 11:00pm November 22, 2023 9:03am Start: 09-27-2023 take 1 tablet by doe th once daily Multivitamin (Daily Multi-Vitamin) tablet Active 1 TABLET PO DAILY September 26, 2023 11:00pm Start: 09-27-2023 take 1 tablet by doe th once daily Multivitamin (Daily Multi-Vitamin) tablet Active 1 TABLET PO DAILY September 27, 2023 12:00am mupirocin 0.02 mg/mg topical ointment (2 sources) RNA Synthetase Inhibitor Antibacterial Start: 10-02-2023 End: 10-07-2023 Nasal, 2 times daily, First dose on Mon10/03/23 at 1300, For 4 days, Phase II/On Unit [place] 6-Zeg-Pry-Fish Oil (Fish Oil) 1,200 (144-216) mg capsule (14 sources) Start: 09-27-2023 End: 11-22-2023 [place] 7-Byv-Wae-Fish Oil (Fish Oil) 1,200 (144-216) mg capsule Discontinued 1 NMA PO DAILY September 27, 2023 12:00am November 22, 2023 10:03am supplement Start: 09-27-2023 End: 11-22-2023 [place] 5-Ips-Iwv-Fish Oil (Fi sh Oil) 1,200 (144-216) mg capsule Discontinued 1 NMA PO DAILY September 27, 2023 12:00am November 22, 2023 10:03am Start: 09-27-2023 End: 11-22-2023 take 1 capsule by mouth once daily [place] 1-Xej-Tit-Fish Oil (Fish Oil) 1,200 (144-216) mg capsule Discontinued 1 CAP PO DAILY September 27, 2023 12:00am November 22, 2023 10:03am Start: 09-27-2023 End: 11-22-2023 take 1 capsule by mouth once daily [place] 1-Wmp-Dcf-Fish Oil (Fish Oil) 1,200 (144-216) mg capsule Discontinued 1 CAP PO DAILY September 26, 2023 11:00pm November 22, 2023 9:03am Start: 09-27-2023 take 1 capsule by mo [facility] once daily [place] 5-Ihb-Qvi-Fish Oil (Fish Oil) 1,200 (144-216) mg capsule Active 1 CAP PO DAILY September 26, 2023 11:00pm Start: 09-27-[address] [facility] once daily [place] 4-Xlt-Obs-Fish Oil (Fish Oil) 1,200 (144-216) mg capsule Active 1 CAP PO DAILY September 27, 2023 12:00am pantoprazole 40 mg delayed release oral tablet (3 sources) Proton Pump Inhibitor Start: 10-05-2023 End: 10-07-2023 take 40 mg by mouth once daily before breakfast 40 mg, Oral, Daily before breakfast, First dose on Mon10/05/23 at 0715, Do not crush, chew, or split. Start: 10-04-2023 End: 10-05-2023 40 mg, IntraVENous, Administ er over 2 Minutes, Daily, First dose on Mon10/04/23 at 0600, Phase II/On Unit, Reconstitute with 10 mL 0.9 % sodium chloride and administer over at least 2 minutes. Start: 09-29-2023 End: 10-03-2023 take 40 mg by mouth once daily in the morning 40 mg, Oral, Every morning, First dose on Mon09/29/23 at 1000, Do not crush, chew, or split. polyethylene glycol 3350 [id number] mg powder for oral solution (2 sources) Osmotic Laxative Start: 09-29-2023 End: 10-07-2023 17 g, Oral, Daily, First dose on Mon10/03/23 at 1300, Recovery & On Unit, Bowel Regimen - for prevention of constipation. microencapsulated potassium chloride 10 meq extended release oral tablet (1 source) Start: 10-04-2023 End: 10-07-2023 20 mEq, Oral, PRN, Hypokalemia, Starting on Mon10/04/23 at 0000, Phase II/On Unit, If patient is intubated or not tolerating PO use PRN IV replacement protocol Potassium level Dose LESS than 3.0 = Give 20 mEq x 3 doses 3.0-3.6 = Give 20 mEq x 2 doses Recheck potassium level 2 hour after replacement given, place order for lab under [place] If potassium level LESS than 3 after 1st replacement: Call surgeon. Do not crush or break. Do not crush or chew. 5 ml sodium chloride 9 mg/ml injection (5 sources) Start: 10-03-2023 End: 10-07-2023 10 mL, IntraVENous, Every 12 hours scheduled (2 times per day), First dose on Mon10/03/23 at 2100, Recovery & On Unit Start: 10-03-2023 End: 10-05-2023 take 20 mL intravenously every hour 20 mL/hr, IntraVENous, Continuous, Starting on Mon10/03/23 at 1300, Recovery & On Unit, 20 ml/hr to SP(introducer) and WT on [place] Marta Catheter; once [place] discontinued run at 20 ml/hr through SP(introducer) Start: 10-03-2023 End: 10-07-2023 take 100 mL intravenously every hour as needed, then take 20 mL intravenously every hour as needed 5-250 mL/hr, IntraVENous, PRN, if patient receiving piggyback infusions and maintenance fluids are not ordered OR KVO fluids to protect IV site / prevent frequent line interruptions/ long duration, Starting on Mon10/03/23 at 1248, Recovery & On Unit, For piggyback infusion, administer at same rate as piggyback for a total of 25 mL. Enter 25 mL into dose field and piggyback rate into rate field of order. If piggyback is infusing at a rate less than 100 mL/hr, enter 25 mL into dose field and 100 mL/hr into rate field of order. For KVO fluids, enter rate of 20 mL/hr or less into rate field of order. Start: 10-03-2023 End: 10-07-2023 take 10 mL intravenously once as needed 10 mL, IntraVENous, PRN, line care, Starting on Mon10/03/23 at 1248, Recovery & On Unit, After every IV line use Start: 09-29-2023 End: 10-03-2023 take 5-40 mL intravenously every twelve hours 5-40 mL, IntraVENous, Every 12 hours, First dose on Mon09/29/23 at 0715, For Line Patency: Peripheral IV = 5 mL; Midline or Central Line = 10 mL/lumen. If following IV push medication, administer flush at same rate as the IV push. Flush volume is determined by type of infusion therapy being given. For non-viscous solutions use: Peripheral IV = 5 mL Midline or Central Line = 10 mL/lumen For viscous solutions (i.e. blood components, parenteral nutrition, contrast media, or after obtaining blood sample) use: Peripheral IV = 10 mL Midline or Central Line = 20 mL/lumen 5 ml sugammadex 100 mg/ml injection (1 source) Start: 10-03-2023 End: 10-03-2023 380 mg (rounded from 384.8 mg = 4 mg/kg 96.2 kg), IntraVENous, Once, On Mon10/03/23 at 1300, For 1 dose traMADol hydrochloride 50 mg oral tablet (16 sources) Opioid Agonist Start: 06-14-2020 End: 11-22-2023 take 1 tablet by mouth every four hours as needed for pain Tramadol 50 MG tablet Discontinued 50 mg PO EVERY 4 HOURS NEEDED as needed for pain 15 0 June 14, 2020 12:00am November 22, 2023 10:03am (5 sources) Start: 10-04-2023 End: 10-07-2023 take 5 mg by mouth every four hours as needed for pain [Order 1 Start] Name: oxyCODONE (Roxicodone) immediate release tablet 5 mg Signed Summary: 5 mg, Oral, Every 4 hours PRN, moderate pain (4-6), Starting on Mon10/04/23 at 0615, Recovery & On Unit [Order 1 End] [Order 2 Start] Name: oxyCODONE (Roxicodone) immediate release tablet 10 mg Signed Summary: 10 mg, Oral, Every 4 hours PRN, severe pain (7-10), Starting on Mon10/04/23 at 0615, Recovery & On Unit [Order 2 End] Start: 10-03-2023 End: 10-07-2023 [Order 1 Start] Name: maico ium sulfate IVPB premix 2,000 mg Signed Summary: 2,000 mg, IntraVENous, at 25 mL/hr, Administer over 2 Hours, As needed, Per Magnesium Replacement Protocol, Starting on Mon10/03/23 at 1248, Recovery & On Unit, Mg Lab Replacement Action 1.4-1.6 2 gram IVPB x 1 doses 1.0-1.3 4 gram IVPB x 1 doses Less than 1.0 CALL PHYSICIAN and 4 gram IVPB x 1 doses Infuse at 1 gram/hr. Repeat Mag level next AM. Not for use in Patients with CrCl less than 30 mL/min. [Order 1 End] [Order 2 Start] Name: magnesium sulfate IVPB 4,000 mg Signed Summary: 4,000 mg, IntraVENous, at 25 mL/hr, Administer over 4 Hours, As needed, Per Magnesium Replacement Protocol, Starting on Mon10/03/23 at 1248, Recovery & On Unit, Mg Lab Replacement Action 1.4-1.6 2 gram IVPB x 1 doses 1.0-1.3 4 gram IVPB x 1 doses Less than 1.0 CALL PHYSICIAN and 4 gram IVPB x 1 doses Infuse at 1 gram/hr. Repeat Mag level next AM. Not for use in Patients with CrCl less than 30 mL/min. [Order 2 End] Start: 10-03-2023 End: 10-07-2023 [Order 1 Start] Name: potass ium chloride IVPB 20 mEq Signed Summary: 20 mEq, IntraVENous, at 50 mL/hr, Administer over 1 Hours, 3 times daily PRN, hypokalemia, Starting on Mon10/03/23 at 1248, Recovery & On Unit, For Central Line Use Only K Lab Replacement Action 3.1-3.5 20 mEq IVPB x 1 doses 2.7-3.0 20 mEq IVPB x 2 doses (40 mEq Total) less than 2.7 CALL PROVIDER and administer 20 mEq IVPB x 2 doses (40 mEq Total) Infuse at 20 mEq/hr Repeat Potassium lab 1 hour after final administration. Protocol not for use in Patients with CrCl less than 30mL/min For central line administration only. [Order 1 End] [Order 2 Start] Name: potassium chloride 20 mEq in sodium chloride 0.9 % 250 mL IVPB Signed Summary: 20 mEq, IntraVENous, at 130 mL/hr, Administer over 2 Hours, Every 8 hours PRN, hypokalemia, Starting on Mon10/03/23 at 1248, Recovery & On Unit, For Peripheral Line Use K Lab Replacement Action 3.1-3.5 20 mEq IVPB x 1 doses 2.7-3.0 40 mEq IVPB x 1 doses less than 2.7 CALL PROVIDER and administer 40 mEq IVPB x 1 dose Infuse at 10 mEq/hr Repeat Potassium lab 1 hour after administration. Protocol not for use in Patients with CrCl less than 30mL/min [Order 2 End] [Order 3 Start] Name: potassium chloride 40 mEq in sodium chloride 0.9 % 500 mL IVPB Signed Summary: 40 mEq, IntraVENous, at 130 mL/hr, Administer over 4 Hours, 3 times daily PRN, hypokalemia, Starting on Mon10/03/23 at 1248, Recovery & On Unit, For Peripheral Line Use. K Lab Replacement Action 3.1-3.5 20 mEq IVPB x 1 doses 2.7-3.0 40 mEq IVPB x 1 doses less than 2.7 CALL PROVIDER and administer 40 mEq IVPB x 1 dose Infuse at 10 mEq/hr Repeat Potassium lab 1 hour after administration. Protocol not for use in Patients with CrCl less than 30mL/min [Order 3 End] Start: 10-03-2023 End: 10-07-2023 [Order 1 Start] Name: morphi ne injection 2 mg Signed Summary: 2 mg, IntraVENous, Every 2 hour PRN, moderate pain (4-6), Starting on Mon10/03/23 at 1248, Recovery & On Unit, If oral and IV narcotics ordered, use oral first and only use IV if oral is ineffective or cannot take oral. Do Not give oral and IV within 1 hour of each other unless specifically ordered. [Order 1 End] [Order 2 Start] Name: morphine injection 4 mg Signed Summary: 4 mg, IntraVENous, Every 2 hour PRN, severe pain (7-10), Starting on Mon10/03/23 at 1248, Recovery & On Unit, If oral and IV narcotics ordered, use oral first and only use IV if oral is ineffective or cannot take oral. Do Not give oral and IV within 1 hour of each other unless specifically ordered. [Order 2 End] Start: 10-03-2023 End: 10-07-2023 take 4 mg by mouth every eight hours as needed for nausea and vomiting [Order 1 Start] Name: ondansetron ODT (Zofran-ODT) disintegrating tablet 4 mg Signed Summary: 4 mg, Oral, Every 8 hours PRN, nausea, vomiting, Starting on Mon10/03/23 at 1248, Recovery & On Unit, 1st Line. If inadequate response within 60 minutes, proceed to next-line agent or contact provider if no further options ordered. Patient should allow tablet to dissolve on tongue. Do not remove from blister pack until just before administering. [Order 1 End] [Order 2 Start] Name: ondansetron (Zofran) injection 4 mg Signed Summary: 4 mg, IntraVENous, Every 6 hours PRN, nausea, vomiting, Starting on Mon10/03/23 at 1248, Recovery & On Unit, 1st Line. Give IV if patient is unable to take orally. If inadequate response within 60 minutes, proceed to next-line agent or contact provider if no further options ordered. 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 Peña at [facility]. Patient received a SCHWAB to the mid LAD and a vein graft to the posterolateral circumflex and PDA of the right. His lipids are well-controlled his blood pressure is at goal and he is no longer smoking. He is participating in cardiac rehab and has plans to continue with daily aerobic exercise following graduation from rehab Disorders of lipid metabolism (20 sources) Hypertriglyceridemia; Translations: [Pure hyperglyceridemia] Onset: 04-23-2025 09-27-2023 Chronic Comment on above: The patient's lipids are well-controlled but his ALT is elevated at 72. Given his LDL is 13 I would recommend that we trial dropping his atorvastatin back to 40 mg daily. Essential hypertension (20 sources) Elevated blood pressure; Translations: [Essential (primary) hypertension] 06-15-2020 Chronic Comment on above: Blood pressure is we ll-controlled at 119/77 Genitourinary symptoms and ill-defined conditions (1 source) Nocturia; Translations: [Nocturia] Episodic Hyperplasia of prostate (1 source) Benign prostatic hypertrophy without outflow obstruction; Translations: [Hypertrophy (benign) of prostate without urinary obstruction and other lower urinary tract symptom (LUTS)] Chronic Nonspecific chest pain (15 sources) Chest pain; Translations: [Chest pain, unspecified] 09-14-2023 Episodic Other circulatory disease (2 sources) Vascular disorder; Translations: [Other disorders of arteries, arterioles and capillaries in diseases classified elsewhere] Onset: 09-29-2023 09-29-2023 Chronic Other circulatory disease (1 source) Other disorders of arteries, arterioles and capillaries in diseases classified elsewhere; Translations: [Other disorders of arteries, arterioles and capillaries in diseases classified elsewhere (HCC)] Onset: 09-29-2023 Chronic Other connective tissue disease (10 sources) Muscle weakness of limb; Translations: [Other symptoms and signs involving the musculoskeletal system] 04-23-2025 Episodic Other male genital disorders (1 source) Male erectile dysfunction, unspecified; Translations: [Erectile dysfunction] Chronic Other screening for suspected conditions (not mental disorders or infectious disease) (3 sources) Abnormal findings diagnostic imaging heart+coronary circulat; Translations: [Abnormal findings on diagnostic imaging of heart and coronary circulation] Onset: 09-29-2023 10-02-2023 Episodic Peripheral and visceral atherosclerosis (1 source) Peripheral vascular disease, unspecified; Translations: [Peripheral vascular disease, unspecified] Onset: 05-09-2025 Chronic Residual codes; unclassified (15 sources) Tobacco use and exposure - finding; Translations: [Tobacco use] 09-27-2023 Episodic Residual codes; unclassified (3 sources) Tobacco use; Translations: [Tobacco use disorder] 09-27-2023 Episodic Sprains and strains (16 sources) Lower back injury; Translations: [Strain of muscle, fascia and tendon of lower back, initial encounter] 06-15-2020 Episodic Past or Other Problems Problem Classification Problem Date Documented Da te Episodic/Chronic Coronary atherosclerosis and other heart disease (7 sources) Presence of aortocoronary bypass graft; Translations: [Aortocoronary bypass status] Onset: 10-03-2023 Episodic Other diseases of kidney and ureters (1 source) Disorder of kidney and ureter, unspecified; Translations: [Disorder of kidney and ureter, unspecified] Onset: 01-23-2025 Episodic Results Test Name Value Interpretation Reference Range Facility Anion gap in Serum or Plasma Ordered By: Juan Sousa on 07-30-2025 Anion gap [Moles/Vol] 11 mmol/L - [facility] BUN/creatinine ratioOrdered By: Juan Sousa on 07-30-2025 Urea nitrogen/Creatinine [Mass ratio] 15.0 mg/mg 09-15 [facility] Bilirubin, totalOrdered By: Juan Sousa on 07-30-2025 Bilirubin [Mass/Vol] 0.88 mg/dL 0.00-1.30 [facility] Calculated very low density lipoprotein (VLDL) cholesterol measurementOrdered By: Juan Sousa on 07-30-2025 Calculated very low density lipoprotein (VLDL) cholesterol measurement 33 mg/dL - [facility] Carbon dioxide, total [Moles /volume] in Central venous bloodOrdered By: Juan Sousa on 07-30-2025 CO2 [Moles/Vol] 22.9 mmol/L 21.0-32.0 [facility] Chloride assayOrdered By: Richelle Sousa on 07-30-2025 Chloride [Moles/Vol] 102 mmol/L 98-108 [facility] Comprehensive Metabolic Prof ilon 07-30-2025 Albumin [Mass/Vol] 4.2 g/dL Normal 3.4-4.8 [facility] Comment on above: Performed By: #### L 500.4054, L500.4101 #### [facility] [address], [address] Albumin/Globulin [Mass ratio] 1.3 {ratio} Normal 0.9-2.4 [facility] Comment on above: Performed By: #### L [id number], [id number] #### [facility] [address] [place], [address] ALK PHOS 57 U/L Normal 40-129 [facility] Comment on above: Performed By: #### L [id number], [id number] #### [facility] [address] [place], [address] ALT [Catalytic activity/Vol] 39 U/L Normal <=46 [facility] Comment on above: Performed By: #### L 500.4050, [id number] #### [facility] [address] [place], [address] AST [Catalytic activity/Vol] 33 U/L Normal <=37 [facility] Comment on above: Performed By: #### L [id number], [id number] #### [facility] [address] [place], [address] Bilirubin [Mass/Vol] 0.88 mg/dL Normal 0.00-1.30 [facility] Comment on above: Performed By: #### L [id number], [id number] #### [facility] [address] [place], [address] BUN/CRE 15.0 RATIO Normal 10-20 [facility] Comment on above: Performed By: #### L [id number], [id number] #### [facility] [address] [place], [address] Calcium [Mass/Vol] 9.4 mg/dL Normal 7.6-11.0 [facility] Comment on above: Performed By: #### L [id number], [id number] #### [facility] [address] [place], [address] Chloride [Moles/Vol] 102 mmol/L Normal 98-108 [facility] Comment on above: Performed By: #### L [id number], [id number] #### [facility] [address] [place] [place], [address] CO2 [Moles/Vol] 22.9 mmol/L Normal 21.0-32.0 [facility] Comment on above: Performed By: #### L [id number], [id number] #### [facility] [address] [place], [address] Creatinine [Mass/Vol] 1.38 mg/dL High 0.70-1.20 [facility] Comment on above: Performed By: #### L 500.4050, [id number] #### [facility] [address] [place], [address] GAP 11 Normal 5-15 [facility] Comment on above: Performed By: #### L [id number], [id number] #### [facility] [address] [place], [address] GFR/1.73 sq M.predicted among non-blacks MDRD (S/P/Bld) [Vol rate/Area] 55 mL/min/{1.73_m2} Low >60 [facility] Comment on above: Result Comment: mL/m in/1.73m2 CKD-EPI Creatinine Equation (2020) Performed By: #### L [id number], [id number] #### [facility] [address] [place], [address] Globulin (S) [Mass/Vol] 3.2 g/dL Normal 2.2-4.[address] [facility] Comment on above: Performed By: #### L [id number], [id number] #### [facility] [address] [place], [address] Glucose [Mass/Vol] 100 mg/dL High 70-99 [facility] Comment on above: Performed By: #### L 500.4050, [id number] #### [facility] [address] [place], [address] Potassium [Moles/Vol] 4.3 mmol/L Normal 3.3-5.1 [facility] Comment on above: Performed By: #### L 500.4050, [id number] #### [facility] [address] [place], [address] Sodium [Moles/Vol] 137 mmol/L Normal 133-145 [facility] Comment on above: Performed By: #### L 500.4050, [id number] #### [facility] [address] [place], [address] T PROT 7.4 g/dL Normal 5.9-8.4 [facility] Comment on above: Performed By: #### L 500.4050, [id number] #### [facility] [address] [place], [address] Urea nitrogen [Mass/Vol] 21 mg/dL High 4-19 [facility] Comment on above: Performed By: #### L 500.4050, [id number] #### [facility] [address] [place], [address] Glomerular filtration rate ( GFR) estimation/1.73 sq m using serum, plasma, or whole bOrdered By: Juan Sousa on 07-30-2025 GFR/1.73 sq M.predicted among non-blacks MDRD (S/P/Bld) [Vol rate/Area] 55 mL/min/{1.73_m2} Low >60 [facility] Comment on above: mL/min/1.73m2 CKD-EP I Creatinine Equation (2020) LDL calc ser/plasOrdered By: Juan Sousa on 07-30-2025 Cholesterol in LDL [Mass/Vol] 16 mg/dL [facility] Comment on above: Djmbfnqdjr=333-988 m g/dL & Higher Bdno=432 mg/dL or greaterFriedwald Equation for LDL-C Laboratory - Chemistry and C hemistry - challengeOrdered By: Juan Sousa on 07-30-2025 AST [Catalytic activity/Vol] 33 U/L <38 [facility] Lipid Profileon 07-30-2025 CHOL:HDL 2.67 Normal [facility] Comment on above: Performed By: #### L 500.4050, [id number] #### [facility] [address] [place], [address] Cholesterol [Mass/Vol] 77 mg/dL Normal <=200 [facility] Comment on above: Result Comment: Chol esterol level, Desirable <200 mg/dL Borderline high cholesterol 200-239 mg/dL High cholesterol >=240 mg/dL Recommendations of the NCEP Adult Treatment Panel for the following risk-cutoff thresholds for the [place] population. Performed By: #### L 500.4050, L500.4100 #### [facility] [address] [place], [address] Cholesterol in HDL [Mass/Vol] 29 mg/dL Low [facility] Comment on above: Result Comment: Wendy onal Cholesterol Education Program (NCEP) guidelines: <40 mg/dL: Low HDL-cholesterol (major risk factor for CHD) >= 60 mg/dL: High HDL-cholesterol (negative risk factor for CHD) HDL-cholesterol is affected by a number of factors, e.g. smoking, exercise, hormones, sex and age. Performed By: #### L 500.4050, [id number] #### [facility] [address] [place], [address] Cholesterol in LDL [Mass/Vol] 16 mg/dL Normal [facility] Comment on above: Result Comment: Bord nugjzt=094-303 mg/dL Higher Qbfb=813 mg/dL or greater Friedwald Equation for LDL-C Performed By: #### L 500.4050, [id number] #### [facility] [address], [address] Cholesterol in VLDL [Mass/Vol] 33 mg/dL Normal 5-40 [facility] Comment on above: Performed By: #### L 500.4050, [id number] #### [facility] [address] [place], [address] Triglyceride [Mass/Vol] 163 mg/dL Normal [facility] Comment on above: Result Comment: The drugs N-Acetylcysteine and Metamizole may falsely depress this assay. Normal range: <150 mg/dL Borderline High: 150-199 mg/dL High: 200-499 mg/dL Very High: >500 mg/dL Performed By: #### L 500.4050, L500.4100 #### [facility] [address], [address] Potassium measurement (mass/ volume)Ordered By: Juan Sousa on 07-30-2025 Potassium (Unsp spec) [Mass/Vol] 4.3 mmol/L 3.3-5.1 [facility] Screening total cholesterol/ high density lipoprotein (HDL) cholesterol ratioOrdered By: Juan Sousa on 07-30-2025 Cholesterol.total/Cholest nitesh in HDL [Mass ratio] 2.67 {ratio} [facility] Serum creatinine measurement (mass/volume)Ordered By: Juan Sousa on 07-30-2025 Creatinine [Mass/Vol] 1.38 mg/dL High 0.70-1.20 [facility] Serum globulin measurementOr dered By: Juan Sousa on 07-30-2025 Globulin (S) [Mass/Vol] 3.2 g/dL 2.2-4.2 [facility] Serum glucose measurement (m ass/volume)Ordered By: Juan Sousa on 07-30-2025 Glucose [Mass/Vol] 100 mg/dL High 70-99 [facility] Serum or plasma alanine lozada otransferase (ALT) measurementOrdered By: Juan Sousa on 07-30-2025 ALT [Catalytic activity/Vol] 39 U/L <47 [facility] Serum or plasma albumin nolan urement (mass/volume)Ordered By: Juan Sousa on 07-30-2025 Albumin [Mass/Vol] 4.2 g/dL 3.4-4.8 [facility] Serum or plasma albumin/glob ulin mass ratioOrdered By: Juan Sousa on 07-30-2025 Albumin/Globulin [Mass ratio] 1.3 {ratio} 0.9-2.4 [facility] Serum or plasma alkaline sandra sphatase measurementOrdered By: Juan Sousa on 07-30-2025 ALP [Catalytic activity/Vol] 57 U/L 40-129 [facility] Serum or plasma calcium nolan urement (mass/volume)Ordered By: Juan Sousa on 07-30-2025 Calcium [Mass/Vol] 9.4 mg/dL 7.6-11.0 [facility] Serum or plasma cholesterol in HDL measurement (mass/volume)Ordered By: Juan Sousa on 07-30-2025 Cholesterol in HDL [Mass/Vol] 29 mg/dL Low >40 [facility] Comment on above: National Cholesterol Education Program (NCEP) guidelines:<40 mg/dL: Low HDL-cholesterol (major risk factor for CHD)>= 60 mg/dL: High HDL-cholesterol (negative risk factor for CHD)HDL-cholesterol is affected by a number of factors, e.g. smoking, exercise, hormones, sex and age. Serum or plasma cholesterol measurement (mass/volume)Ordered By: Juan Sousa on 07-30-2025 Cholesterol [Mass/Vol] 77 mg/dL <201 [facility] Comment on above: Cholesterol level, D esirable <200 mg/dLBorderline high cholesterol 200-239 mg/dLHigh cholesterol >=240 mg/dLRecommendations of the NCEP Adult Treatment Panel for the following risk-cutoff thresholds for the [place] population. Serum or plasma urea nitroge n measurement (mass/volume)Ordered By: Juan Sousa on 07-30-2025 Urea nitrogen [Mass/Vol] 21 mg/dL High 4-19 [facility] Sodium levelOrdered By: Juan Sousa on 07-30-2025 Sodium [Moles/Vol] 137 mmol/L 133-145 [facility] Total proteinOrdered By: Carmen Sousa on 07-30-2025 Protein [Mass/Vol] 7.4 g/dL 5.9-8.4 [facility] Triglycerides measurementOrd ered By: Juan Sousa on 07-30-2025 Triglyceride [Mass/Vol] 163 mg/dL <199 [facility] Comment on above: The drugs N-Acetylcy steine and Metamizole may falsely depress this assay. Normal range: <150 mg/dLBorderline High: 150-199 mg/dLHigh: 200-499 mg/dLVery High: >500 mg/dL Echo Completeon 05-28-2025 Echo Complete [facility] [address] [place] [address] Echo Complete 05/28/25 1348 MR#: [id number] Acct: [id number] Name: JADON REYES Rep #: [id number] : 1955 69 From: Alberto Coyne MD Attending Dr: RICHELLE Segovia Status: REG CLI Ordering Dr: Jeri Quinn PA Date: 01/21 Location: [facility] Sex: M C Admitted: Reason For Study Reason For Study: TAA Procedure This was a 2D Doppler, Color Flow transthoracic echocardiogram. Exam performed in department. Left Ventricle Normal LV size. Left ventricular systolic function is normal. The left ventricular ejection fraction is 65 %. Stage 1 diastolic dysfunction. No regional wall motion abnormalities noted. Right Ventricle Normal RV size. Normal systolic function. Atria Normal left atrium. Normal right atrium. Mitral Valve Normal mitral valve. Mild (1+) eccentric mitral valve insufficiency. Tricuspid Valve Normal tricuspid valve. Mild tricuspid valve insufficiency. Pulmonary artery systolic pressure is 30 mmHg. Aortic Valve Trisinus/trileaflet aortic valve. Pulmonic Valve Normal pulmonic valve. Great Vessels Mildly dilated aortic root. The pulmonary artery is normal size. Inferior vena cava collapse with respiration. Pericardium/Pleural No pericardial effusion. MMode/2D Measurements Calculations LVIDd: 4.6 cm IVSd: 1.1 cm Ao root diam: 3.8 cm LVIDs: 2.8 cm LVPWd: 1.3 cm RVDd: 4.0 cm FS: 39.6 % asc Aorta Diam: 4.1 cm LAV(MOD-bp): 31.3 ml LVAd ap4: 30.7 cm2 LAV(MOD-bp) Indexed: 14.1 ml/m2 LVLd ap4: 8.1 cm LAV(MOD-sp2): 32.3 ml EDV(MOD-sp4): 97.0 ml LAV(MOD-sp4): 30.1 ml EDV(sp4-el): 98.4 ml LVAs ap4: 17.3 cm2 LVLs ap4: 7.5 cm ESV(MOD-sp4): 34.2 ml ESV(sp4-el): 34.1 ml EF(MOD-sp4): 64.7 % EF(sp4-el): 65.4 % SV(MOD-sp4): 62.8 ml SV(sp4-el): 64.3 ml Ao sinus diam: 3.7 cm SI(MOD-sp4): 28.2 ml/m2 Ao ST Junction: 2.8 cm LA A4 area: 13.2 cm2 LA dimension(2D): 4.1 cm TAPSE: 1.2 cm RA A4 area: 16.7 cm2 Time Measurements MV dec time: 0.18 sec Doppler Measurements Calculations MV E max alejandra: 52.6 cm/sec Lat Peak E' Alejandra: 11.9 cm/sec Med Peak E' Alejandra: 5.7 cm/sec MV A max alejandra: 56.4 cm/sec E/E' lat: 4.4 E/E' med: 9.2 MV E/A: 0.93 MV V2 max: 60.8 cm/sec MV P1/2t max alejandra: 58.2 cm/sec Ao V2 max: 82.1 cm/sec MV max P.5 mmHg MV P1/2t: 59.3 msec Ao max P.7 mmHg MV V2 mean: 30.3 cm/sec MV dec slope: 287.6 cm/sec2 Ao V2 mean: 59.6 cm/sec MV mean P.45 mmHg Ao mean P.6 mmHg MV V2 VTI: 23.1 cm MVA(P1/2t): 3.7 cm2 Ao V2 VTI: 19.2 cm AV (velocity ratio): 0.99 LV V1 max: 83.6 cm/sec PA V2 max: 110.7 cm/sec TR max alejandra: 254.8 cm/sec LV V1 max P.8 mmHg PA V2 mean: 60.4 cm/sec TR max P.0 mmHg LV V1 mean P.6 mmHg LV V1 mean: 59.7 cm/sec LV V1 VTI: 19.0 cm ECHO/Echo Complete Interpretation Summary Normal LV size. Left ventricular systolic function is normal. The left ventricular ejection fraction is 65 %. Mildly dilated aortic root. Stage 1 diastolic dysfunction. Pulmonary artery systolic pressure is 30 mmHg. Ordering Physician: Jeri Quinn Referring Physician: Jeri Quinn Performed By: Zeyad Connell RCS 05/28/25 1556 Date Alberto Coyne MD CC: Dr. Juan Sousa MD; RICHELLE Segovia Date Dictated: 05/28/25 1348 Date Transcribed: 05/28/25 155 Pulmonary Physical Therapist: Signed Normal [facility] Echocardiogram study reportO rdered By: Alberto Coyne on 05-28-2025 Study report [facility] [address] [place] [address] Echo Complete 05/28/25 1348 MR#: [id number] Acct: [id number] Name: JADON REYES Rep #:[id number] : 1955 69 From: Alberto Tobar Attending Dr: RICHELLE Segovia Status: REG CLI Ordering Dr: Jeri Quinn Date: 05/28/25 Location: [facility] Sex: M C Admitted: Reason For Study Reason For Study: TAA Procedure This was a 2D Doppler, Color Flow transthoracic echocardiogram. Exam performed in department. Left Ventricle Normal LV size. Left ventricular systolic function is normal. The left ventricular ejection fraction is 65 %. Stage 1 diastolic dysfunction. No regional wall motion abnormalities noted. Right Ventricle Normal RV size. Normal systolic function. Atria Normal left atrium. Normal right atrium. Mitral Valve Normal mitral valve. Mild (1+) eccentric mitral valve insufficiency. Tricuspid Valve Normal tricuspid valve. Mild tricuspid valve insufficiency. Pulmonary artery systolic pressure is 30 mmHg. Aortic Valve Trisinus/trileaflet aortic valve. Pulmonic Valve Normal pulmonic valve. Great Vessels Mildly dilated aortic root. The pulmonary artery is normal size. Inferior vena cava collapse with respiration. Pericardium/Pleural No pericardial effusion. MMode/2D Measurements & Calculations LVIDd: 4.6 cm IVSd: 1.1 cm Ao root diam: 3.8 cm LVIDs: 2.8 cm LVPWd: 1.3 cm RVDd: 4.0 cm FS: 39.6 % asc Aorta Diam: 4.1 cm LAV(MOD-bp): 31.3 ml LVAd ap4: 30.7 cm2 LAV(MOD-bp) Indexed: 14.1 ml/m2 LVLd ap4: 8.1 cm LAV(MOD-sp2): 32.3 ml EDV(MOD-sp4): 97.0 ml LAV(MOD-sp4): 30.1 ml EDV(sp4-el): 98.4 ml LVAs ap4: 17.3 cm2 LVLs ap4: 7.5 cm ESV(MOD-sp4): 34.2 ml ESV(sp4-el): 34.1 ml EF(MOD-sp4): 64.7 % EF(sp4-el): 65.4 % SV(MOD-sp4): 62.8 ml SV(sp4-el): 64.3 ml Ao sinus diam: 3.7 cm SI(MOD-sp4): 28.2 ml/m2 Ao ST Junction: 2.8 cm LA A4 area: 13.2 cm2 LA dimension(2D): 4.1 cm TAPSE: 1.2 cm RA A4 area: 16.7 cm2 Time Measurements MV dec time: 0.18 sec Doppler Measurements & Calculations MV E max alejandra: 52.6 cm/sec Lat Peak E' Alejandra: 11.9 cm/sec Med Peak E' Alejandra: 5.7 cm/sec MV A max alejandra: 56.4 cm/sec E/E' lat: 4.4 E/E' med: 9.2 MV E/A: 0.93 MV V2 max: 60.8 cm/sec MV P1/2t max alejandra: 58.2 cm/sec Ao V2 max: 82.1 cm/sec MV max P.5 mmHg MV P1/2t: 59.3 msec Ao max P.7 mmHg MV V2 mean: 30.3 cm/sec MV dec slope: 287.6 cm/sec2 Ao V2 mean: 59.6 cm/sec MV mean P.45 mmHg Ao mean P.6 mmHg MV V2 VTI: 23.1 cm MVA(P1/2t): 3.7 cm2 Ao V2 VTI: 19.2 cm AV (velocity ratio): 0.99 LV V1 max: 83.6 cm/sec PA V2 max: 110.7 cm/sec TR max alejandra: 254.8 cm/sec LV V1 max P.8 mmHg PA V2 mean: 60.4 cm/sec TR max P.0 mmHg LV V1 mean P.6 mmHg LV V1 mean: 59.7 cm/sec LV V1 VTI: 19.0 cm ECHO/Echo Complete Interpretation Summary Normal LV size. Left ventricular systolic function is normal. The left ventricular ejection fraction is 65 %. Mildly dilated aortic root. Stage 1 diastolic dysfunction. Pulmonary artery systolic pressure is 30 mmHg. Ordering Physician: Jeri Quinn Referring Physician: Jeri Quinn Performed By: Zeyad Connell RCS 05/28/25 1556 Date _ Alberto Coyne MD CC: Dr. Juan Sousa MD; RICHELLE Segovia ~ Date Dictated: 05/28/25 1348 Date Transcribed: 05/28/25 1556 Pulmonary Physical Therapist: Signed [facility] Work Phone: Ankle Brachial Indexon 05-05 Ankle Brachial Index [facility] [address] [place] [address] Ankle Brachial Index 05/05/25 1038 MR#: [id number] Acct: [id number] Name: JADON REYES Rep #: [id number] : 1955 69 From: Jose Alberto Medrano MD Attending Dr: RICHELLE Segovia Status: REG CLI Ordering Dr: Jeri Quinn PA Date: 08/21 Location: [facility] Sex: M C Admitted: Reason For Study Reason For Study: Claudication Procedure A bilateral lower extremity continuous wave Doppler with analog waveform analysis and ankle brachial indexes. Left Segmental Pressures Left brachial= 142mmHg. Left posterior tibial artery = 157mmHg. Left dorsalis pedis artery = 146mmHg. Left digit = 137 mmHg. The left dorsalis pedis waveforms are triphasic. The left posterior tibial artery waveforms are triphasic. Right Segmental Pressures Right brachial= 140mmHg. Right posterior tibial artery = 173mmHg. Right dorsalis pedis artery = 150mmHg. Right digit = 87 mmHg. The right dorsalis pedis waveforms are triphasic. The right posterior tibial artery waveforms are triphasic. Indices The right ankle brachial index by the dorsalis pedis is 1.06. The right ankle brachial index by the posterior tibial artery is 1.22. The right digital-brachial index is 0.61. The left ankle brachial index by the dorsalis pedis is 1.02. The left ankle brachial index by the posterior tibial artery is 1.11. The left digital-brachial index is 0.96. VL/Ankle Brachial Index Interpretation Summary Right NURIA 1.22, normal. Doppler/PVR waveforms of the right ankle normal at rest. TBI diminished, pedal/digit disease vs spasm. Left NURIA 1.11, normal. TBI and Doppler/PVR waveforms of the left ankle normal at rest. Ordering Physician: Jeri Quinn Referring Physician: JERI QUINN Performed By: ANTONY MAYORGA [facility] 05/05/25 1219 Date Jose Alberto Medrano MD CC: Dr. Juan Sousa MD; RICHELLE Segovia Date Dictated: 05/05/25 1038 Date Transcribed: 05/05/25 1219 Pulmonary Physical Therapist: Signed Normal [facility] Arterial study reportOrdered By: Jose Alberto Medrano on 05-05-2025 Noninvasive arteriosclerosis study report [facility] [address] [place] [address] Ankle Brachial Index 05/05/25 1038 MR#: [id number] Acct: [id number] Name: JADON REYES ALAN Rep #:[id number] : 1955 69 From: Jose Alberto Tobar Attending Dr: RICHELLE Segovia Status: REG CLI Ordering Dr: Jeri Quinn Date: 05/05/25 Location: [facility] Sex: M C Admitted: Reason For Study Reason For Study: Claudication Procedure A bilateral lower extremity continuous wave Doppler with analog waveform analysis and ankle brachial indexes. Left Segmental Pressures Left brachial= 142mmHg. Left posterior tibial artery = 157mmHg. Left dorsalis pedis artery = 146mmHg. Left digit = 137 mmHg. The left dorsalis pedis waveforms are triphasic. The left posterior tibialartery waveforms are triphasic. Right Segmental Pressures Right brachial= 140mmHg. Right posterior tibial artery = 173mmHg. Right dorsalispedis artery = 150mmHg. Right digit = 87 mmHg. The right dorsalis pedis waveforms are triphasic. The right posterior tibial artery waveforms are triphasic. Indices The right ankle brachial index by the dorsalis pedis is 1.06. The right ankle brachial index by the posterior tibial artery is 1.22. The right digital-brachial index is 0.61. The left ankle brachial index by the dorsalis pedis is 1.02. The left ankle brachial index by the posterior tibial artery is 1.11. The left digital-brachial index is 0.96. VL/Ankle Brachial Index Interpretation Summary Right NURIA 1.22, normal. Doppler/PVR waveforms of the right ankle normal at rest.TBI diminished, pedal/digit disease vs spasm. Left NURIA 1.11, normal. TBI and Doppler/PVR waveforms of the left ankle normal atrest. Ordering Physician: Jeri Quinn Referring Physician: JERI QUINN Performed By: ANTONY MAYORGA T 05/05/25 1219 Date _ Jose Alberto Medrano MD CC: Dr. Juan Sousa MD; RICHELLE Segovia ~ Date Dictated: 05/05/25 1038 Date Transcribed: 05/05/25 1219 Pulmonary Physical Therapist: Signed [facility] Work Phone: Cardiology Visit Reporton Cardiology Visit Report [facility] [address] [place] [address] OFFICE VISIT Date of Service: 04/23/25 MR#: [id number] Acct: [id number] Name: JADON REYES Rep #: [id number] : 1955 Provider: RICHELLE Forbes Age/Sex: 69/M Location: [facility] Status: Signed HPI HPI History of Present Illness Details: This is a 69-year-old male who presents to the office for a cardiovascular follow-up. He underwent a heart catheterization on 09/28/2023 that showed mid LAD with 95% stenosis, proximal RCA with 100% stenosis, and right PLV with 80% stenosis. Proximal circumflex and OM1 showed 40% and 20-30% stenosis, respectively. Echocardiogram 09/29/2023 at [facility] showed ejection fraction of 55%. He underwent coronary artery bypass x 3 surgery on 10/03/2023 At [facility] with SCHWAB to mid LAD and sequential vein graft to PDA and posterolateral branch. His postoperative course was uncomplicated. Pts biggest issue is the pain in his left knee. He does not have any chest pain or worsening SOB. He does sometimes have palpitations. He does sometimes have numbness in his fingers, this on on/off since his surgery. It is on his left hand. He does have positonal dizziness. He is concerned about leg fatigue. 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 Accompanied by: Is patient in pain?: No Allergies lisinopril Allergy (Verified 04/23/25 10:37) PT UNSURE OF REACTION Medications ???Medication ???Instructions ???Recorded ???Confirmed ???Type aspirin 81 mg capsule 81 mg PO DAILY heart health 04/23/25 History latanoprost 0.005 % eye drops 1 drp ophthalmic (eye) QHS glaucom a 09/27/23 04/23/25 History acetaminophen 500 mg tablet 1,000 mg PO TID PRN 11/22/2304/23 History multivitamin 1 tab PO DAILY 02/16/24 04/23/25 H istory omega 7-fry-xfr-fish oil 300 1 cap PO DAILY 02/16/24 04/23/25 H istory mg-1,000 mg capsule (Fish Oil) losartan 100 1 tab PO DAILY #90 tabs 12/31/24 0 04/23/25 Rx mg-hydrochlorothiazide 12.5 mg tablet atorvastatin 40 mg tablet 40 mg PO QDAY 04/23/25 04/23/25 Hi story furosemide 20 mg tablet (Lasix) 20 mg PO QAM PRN edema #30 tabs 04/23/25 Rx Ejection fraction %: 55 Have you fallen in the past year?: No PFSH Medical History Ascending aorta dilatation Acute blood loss anemia Atherosclerosis of coronary artery of [place] heart without angina pectoris Hyperlipidemia Essential hypertension Unstable angina Tobacco use ACS (acute coronary syndrome) Smoker Surgical History History of coronary artery bypass surgery (10/03/23) History of left heart catheterization (09/28/23) Family History Father Kidney disease CAD (coronary artery disease) CABG-65 Diabetes Mother Cancer Ovarian- mid 80s. Sister Lupus Grandfather CAD (coronary artery disease) 50s- sudden Social History household members: spouse Smoking Status: Former smoker quit date: 09/05/23 alcohol intake: current alcohol intake frequency: holidays/special occasions only substance use type: does not use caffeine: Yes Type: coffee Number of servings: 3 ROS Const Const: Negative for fatigue or weakness Eyes Eyes: Negative for change in vision ENT ENT: Negative for dizziness or balance problems Cardio Chest Pain: No Palpitations: Yes (With exertion) feels like its: fast Edema: Bilateral (Intermittently) Additional Details: Pain in left knee near graft site hurts with walking. Resp Respiratory: Negative for SOB with activity, SOB at rest or SOB orthopnea SOB lying down GI GI: Negative nausea or heartburn Musc Musc: Negative for balance problems Neuro Neuro: Positive for lightheadedness (When standing up too quickly); Negative for dizziness, near syncope, syncope or weakness Endo Endo: Negative for fatigue Cardiology Exam Const Appearance: cooperative, comfortable and no acute distress Head Head: normal to inspection Eyes General: appearance normal, both eyes and all related structures Neck Neck: no JVD Carotids: Negative bruit Chest Auscultation: Bilateral: Clear to Auscultation Cardio Rate: regular rate Rhythm: regular rhythm Heart sounds: S1 normal and S2 normal; Negative rub, gallop or murmur GI GI: normal to inspection Neuro General: patient alert and patient oriented x3 Skin Skin: no rashes or lesions noted Extremities (more content not included)... Normal [facility] Bilirubin directOrdered By: Jeri Quinn on 04-17-2025 Bilirubin.direct [Mass/Vol] 0.34 mg/dL High 0.00-0.30 [facility] Bilirubin, totalOrdered By: Jeri Quinn on 04-17-2025 Bilirubin [Mass/Vol] 0.72 mg/dL 0.00-1.30 [facility] Calculated very low density lipoprotein (VLDL) cholesterol measurementOrdered By: Jeri Quinn on 04-17-2025 Calculated very low density lipoprotein (VLDL) cholesterol measurement 21 mg/dL 5-40 [facility] LDL calc ser/plasOrdered By: Jeri Quinn on 04-17-2025 Cholesterol in LDL [Mass/Vol] 14 mg/dL [facility] Comment on above: Njzsnbykii=463-131 m g/dL & Higher Gymt=515 mg/dL or greater Laboratory - Chemistry and C hemistry - challengeOrdered By: Jeri Quinn on 04-17-2025 AST [Catalytic activity/Vol] 29 U/L <38 [facility] Lipid Profileon 04-17-2025 CHOL:HDL 2.11 Normal [facility] Comment on above: Performed By: #### L 500.3400, L500.4100 #### [facility] [address] [place], [address] Cholesterol [Mass/Vol] 67 mg/dL Normal <=200 [facility] Comment on above: Result Comment: Chol esterol level, Desirable <200 mg/dL Borderline high cholesterol 200-239 mg/dL High cholesterol >=240 mg/dL Recommendations of the NCEP Adult Treatment Panel for the following risk-cutoff thresholds for the [place] population. Performed By: #### L 500.3400, L500.4100 #### [facility] [address] [place], [address] Cholesterol in HDL [Mass/Vol] 32 mg/dL Low [facility] Comment on above: Result Comment: Wendy onal Cholesterol Education Program (NCEP) guidelines: <40 mg/dL: Low HDL-cholesterol (major risk factor for CHD) >= 60 mg/dL: High HDL-cholesterol (negative risk factor for CHD) HDL-cholesterol is affected by a number of factors, e.g. smoking, exercise, hormones, sex and age. Performed By: #### L 500.3400, L500.4100 #### [facility] [address] [place], [address] Cholesterol in LDL [Mass/Vol] 14 mg/dL Normal [facility] Comment on above: Result Comment: Bord bvnlci=654-312 mg/dL Higher Ccaz=799 mg/dL or greater Performed By: #### L 500.3400, L500.4100 #### [facility] [address] [place], [address] Cholesterol in VLDL [Mass/Vol] 21 mg/dL Normal 5-40 [facility] Comment on above: Performed By: #### L 500.3400, L500.4100 #### [facility] [address] [place], [address] Triglyceride [Mass/Vol] 105 mg/dL Normal [facility] Comment on above: Result Comment: The drugs N-Acetylcysteine and Metamizole may falsely depress this assay. Normal range: <150 mg/dL Borderline High: 150-199 mg/dL High: 200-499 mg/dL Very High: >500 mg/dL Performed By: #### L 500.3400, L500.4100 #### [facility] [address] [place], [address] Liver Profileon 04-17-2025 Albumin [Mass/Vol] 3.9 g/dL Normal 3.4-4.8 [facility] Comment on above: Performed By: #### L 500.3400, L500.4100 #### [facility] [address] [place], [address] ALK PHOS 55 U/L Normal 40-129 [facility] Comment on above: Performed By: #### L 500.3400, L500.4100 #### [facility] [address] [place], [address] ALT [Catalytic activity/Vol] 29 U/L Normal <=46 [facility] Comment on above: Performed By: #### L 500.3400, L500.4100 #### [facility] [address] [place], [address] AST [Catalytic activity/Vol] 29 U/L Normal <=37 [facility] Comment on above: Performed By: #### L 500.3400, L500.4100 #### [facility] [address] [place], [address] Bilirubin [Mass/Vol] 0.72 mg/dL Normal 0.00-1.30 [facility] Comment on above: Performed By: #### L 500.3400, L500.4100 #### [facility] [address] [place], [address] Bilirubin.direct [Mass/Vol] 0.34 mg/dL High 0.00-0.30 [facility] Comment on above: Performed By: #### L 500.3400, L500.4100 #### [facility] [address] [place], [address] Globulin (S) [Mass/Vol] 4.0 g/dL Normal 2.2-4.2 [facility] Comment on above: Performed By: #### L 500.3400, L500.4100 #### [facility] [address] [place], [address] T PROT 7.9 g/dL Normal 5.9-8.4 [facility] Comment on above: Performed By: #### L 500.3400, L500.4100 #### [facility] [address] [place], [address] Screening total cholesterol/ high density lipoprotein (HDL) cholesterol ratioOrdered By: Jeri Quinn on 04-17-2025 Cholesterol.total/Cholest nitesh in HDL [Mass ratio] 2.11 {ratio} [facility] Serum globulin measurementOr dered By: Jeri Quinn on 04-17-2025 Globulin (S) [Mass/Vol] 4.0 g/dL 2.2-4.2 [facility] Serum or plasma alanine lozada otransferase (ALT) measurementOrdered By: Jeri Quinn on 04-17-2025 ALT [Catalytic activity/Vol] 29 U/L <47 [facility] Serum or plasma albumin nolan urement (mass/volume)Ordered By: Jeri Quinn on 04-17-2025 Albumin [Mass/Vol] 3.9 g/dL 3.4-4.8 [facility] Serum or plasma alkaline sandra sphatase measurementOrdered By: Jeri Quinn on 04-17-2025 ALP [Catalytic activity/Vol] 55 U/L 40-129 [facility] Serum or plasma cholesterol in HDL measurement (mass/volume)Ordered By: Jeri Quinn on 04-17-2025 Cholesterol in HDL [Mass/Vol] 32 mg/dL Low >40 [facility] Comment on above: National Cholesterol Education Program (NCEP) guidelines:<40 mg/dL: Low HDL-cholesterol (major risk factor for CHD)>= 60 mg/dL: High HDL-cholesterol (negative risk factor for CHD)HDL-cholesterol is affected by a number of factors, e.g. smoking, exercise, hormones, sex and age. Serum or plasma cholesterol measurement (mass/volume)Ordered By: Jeri Quinn on 04-17-2025 Cholesterol [Mass/Vol] 67 mg/dL <201 [facility] Comment on above: Cholesterol level, D esirable <200 mg/dLBorderline high cholesterol 200-239 mg/dLHigh cholesterol >=240 mg/dLRecommendations of the NCEP Adult Treatment Panel for the following risk-cutoff thresholds for the [place] population. Total proteinOrdered By: Roscoe Quinn on 04-17-2025 Protein [Mass/Vol] 7.9 g/dL 5.9-8.4 [facility] Triglycerides measurementOrd ered By: Jeri Quinn on 04-17-2025 Triglyceride [Mass/Vol] 105 mg/dL <199 [facility] Comment on above: The drugs N-Acetylcy steine and Metamizole may falsely depress this assay. Normal range: <150 mg/dLBorderline High: 150-199 mg/dLHigh: 200-499 mg/dLVery High: >500 mg/dL Basic Metabolic Profile (BMP )on 01-08-2025 BUN/CRE 15.0 RATIO Normal 10-20 [facility] Comment on above: Performed By: #### L 500.2500 #### [facility] [address] [place], [address] CA,Total 9.3 mg/dL Normal 8.5-10.1 [facility] Comment on above: Performed By: #### L 500.2500 #### [facility] [address] [place], [address] Chloride [Moles/Vol] 105 mmol/L Normal 98-107 [facility] Comment on above: Performed By: #### L 500.2500 #### [facility] [address] [place], [address] CO2 [Moles/Vol] 26.0 mmol/L Normal 21.0-32.0 [facility] Comment on above: Performed By: #### L 500.2500 #### [facility] [address] [place], [address] Creatinine [Mass/Vol] 1.33 mg/dL High 0.70-1.30 [facility] Comment on above: Result Comment: The validity of the calculated GFR GFRAA in patients over 70 years has not been determined. Clinical correlation is essential. Performed By: #### L 500.2500 #### [facility] [address] [place], [address] EST GFR - AA 68 mL/min Normal >60 [facility] Comment on above: Result Comment: Afri can [place] GFR Calc Performed By: #### L 500.2500 #### [facility] [address] [place], [address] GAP 6 Normal 5-15 [facility] Comment on above: Performed By: #### L 500.2500 #### [facility] [address] [place], [address] GFR/1.73 sq M.predicted among non-blacks MDRD (S/P/Bld) [Vol rate/Area] 57 mL/min/{1.73_m2} Low >60 [facility] Comment on above: Result Comment: Non- GFR Calc Performed By: #### L 500.2500 #### [facility] [address] [place], [address] Glucose [Mass/Vol] 113 mg/dL High 74-106 [facility] Comment on above: Result Comment: Fast ing Glucose result from 100 to 125 mg/dL suggests IMPAIRED HOMEOSTASIS per A.D.A. criteria. Performed By: #### L 500.2500 #### [facility] [address] [place], [address] Potassium [Moles/Vol] 4.4 mmol/L Normal 3.5-5.1 [facility] Comment on above: Performed By: #### L 500.2500 #### [facility] [address] [place], [address] Sodium [Moles/Vol] 138 mmol/L Normal 136-145 [facility] Comment on above: Performed By: #### L 500.2500 #### [facility] [address] [place], [address] Urea nitrogen [Mass/Vol] 20 mg/dL High 7-18 [facility] Comment on above: Performed By: #### L 500.2500 #### [facility] [address] [place], [address] Blood urea nitrogen (BUN)/cr eatinine ratioOrdered By: Juan Sousa on 01-08-2025 Urea nitrogen/Creatinine [Mass ratio] 15.0 mg/mg 10-20 [facility] Carbon dioxide measurementOr dered By: Juan Sousa on 01-08-2025 CO2 [Moles/Vol] 26.0 mmol/L 21.0-32.0 [facility] Chloride measurementOrdered By: Juan Sousa on 01-08-2025 Chloride [Moles/Vol] 105 mmol/L 98-107 [facility] Glomerular filtration rate ( GFR) estimationOrdered By: Juan Sousa on 01-08-2025 GFR/1.73 sq M.predicted among non-blacks MDRD (S/P/Bld) [Vol rate/Area] 57 mL/min/{1.73_m2} Low >60 [facility] Comment on above: Non- GFR Calc Glucose measurementOrdered B y: Juan Sousa on 01-08-2025 Glucose [Mass/Vol] 113 mg/dL High 74-106 [facility] Comment on above: Fasting Glucose resu lt from 100 to 125 mg/dL suggests IMPAIRED HOMEOSTASIS per A.D.A. criteria. Potassium measurementOrdered By: Juan Sousa on 01-08-2025 Potassium [Moles/Vol] 4.4 mmol/L 3.5-5.1 [facility] Serum anion gap measurementO rdered By: Juan Sousa on 01-08-2025 Anion gap [Moles/Vol] 6 mmol/L 5-15 [facility] Serum or plasma calcium nolan urement (mass/volume)Ordered By: Juan Sousa on 01-08-2025 Calcium [Mass/Vol] 9.3 mg/dL 8.5-10.1 [facility] Serum or plasma creatinine m easurement (mass/volume)Ordered By: Juan Sousa on 01-08-2025 Creatinine [Mass/Vol] 1.33 mg/dL High 0.70-1.30 [facility] Comment on above: The validity of the calculated GFR & GFRAA in patients over 70 years has not been determined. Clinical correlation is essential. Serum or plasma urea nitroge n measurement (mass/volume)Ordered By: Juan Sousa on 01-08-2025 Urea nitrogen [Mass/Vol] 20 mg/dL High 7-18 [facility] Sodium levelOrdered By: Juan Sousa on 01-08-2025 Sodium [Moles/Vol] 138 mmol/L 136-145 [facility] Lipid Profileon 11-25-2024 Cholesterol [Mass/Vol] 97 mg/dL Normal 200 [facility] Comment on above: Result Comment: <200 mg/dL Desirable 200-240 mg/dL Borderline >240 mg/dL High Risk Performed By: #### L 500.4100, L500.3400 #### [facility] [address] [place], [address] Cholesterol in HDL [Mass/Vol] 33 mg/dL Low [facility] Comment on above: Result Comment: The drugs N-Acetylcysteine and Metamizole may falsely depress this assay. Reference Range HDL <40 mg/dL Low HDL Cholesterol HDL >or= 60 mg/dL High HDL Cholesterol Performed By: #### L 500.4100, L500.3400 #### [facility] [address] [place], [address] Cholesterol in LDL [Mass/Vol] 26 mg/dL Normal 0-130 [facility] Comment on above: Performed By: #### L 500.4100, L500.3400 #### [facility] [address] [place], [address] Cholesterol in VLDL [Mass/Vol] 38 mg/dL Normal 5-40 [facility] Comment on above: Performed By: #### L 500.4100, [id number] #### [facility] [address] [place], [address] Triglyceride [Mass/Vol] 192 mg/dL Normal [facility] Comment on above: Result Comment: The drugs N-Acetylcysteine and Metamizole may falsely depress this assay. Serum Triglycerides Reference Interval Normal <150 mg/dL Borderline high 150 - 199 mg/dL High 200 - 499 mg/dL Very High > or = 500 mg/dL Performed By: #### L 500.4100, L500.3400 #### [facility] [address] [place], [address] Liver Profileon 11-25-2024 Albumin [Mass/Vol] 3.8 g/dL Normal 3.2-5.0 [facility] Comment on above: Performed By: #### L 500.4100, [id number] #### [facility] [address] [place], [address] ALK P 62 U/L Normal 45-117 [facility] Comment on above: Performed By: #### L 500.4100, L500.3400 #### [facility] [address] [place], [address] ALT [Catalytic activity/Vol] 47 U/L Normal 16-61 [facility] Comment on above: Performed By: #### L 500.4100, [id number] #### [facility] [address] [place], [address] AST [Catalytic activity/Vol] 27 U/L Normal 15-37 [facility] Comment on above: Performed By: #### L 500.4100, [id number] #### [facility] [address] [place], [address] Bilirubin [Mass/Vol] 0.90 mg/dL Normal 0.20-1.00 [facility] Comment on above: Result Comment: For patients on eltrombopag therapy, use of Dimension [place] TBIL is not recommended. Performed By: #### L 500.4100, L500.3400 #### [facility] [address] [place], [address] Bilirubin.direct [Mass/Vol] 0.24 mg/dL Normal 0.00-0.30 [facility] Comment on above: Performed By: #### L 500.4100, [id number] #### [facility] [address] [place], [address] Globulin (S) [Mass/Vol] 4.1 g/dL Normal 2.2-4.[address] [facility] Comment on above: Performed By: #### L 500.4100, [id number] #### [facility] [address] [place], [address] T PROT 7.9 g/dL Normal 6.4-8.2 [facility] Comment on above: Performed By: #### L 500.4100, [id number] #### [facility] [address] [place], [address] Basophil percentageOrdered B y: Juan Sousa on 01-10-2024 Bilirubin [Mass/Vol] 0.60 mg/dL 0.20-1.00 [facility] Comment on above: For patients on eltr ombopag therapy, use of Dimension [place] TBIL is not recommended. Chloride [Moles/Vol] 105 mmol/L 98-107 [facility] Cholesterol [Mass/Vol] 67 mg/dL <200 [facility] Comment on above: <200 mg/dL Desirable 200-240 mg/dL Borderline >240 mg/dL High Risk Glucose [Mass/Vol] 111 mg/dL 74-106 [facility] Comment on above: Fasting Glucose resu lt from 100 to 125 mg/dL suggests IMPAIRED HOMEOSTASIS per A.D.A. criteria. Potassium [Moles/Vol] 4.6 mmol/L 3.5-5.1 [facility] Protein [Mass/Vol] 8.1 g/dL 6.4-8.2 [facility] Sodium [Moles/Vol] 138 mmol/L 136-145 [facility] Triglyceride [Mass/Vol] 113 mg/dL <199 [facility] Comment on above: The drugs N-Acetylcy steine and Metamizole may falsely depress this assay.Serum Triglycerides Reference Interval Normal <150 mg/dL Borderline high 150 - 199 mg/dL High 200 - 499 mg/dL Very High > or = 500 mg/dL Laboratory - Chemistry and C hemistry - challengeOrdered By: Juan Sousa on 01-10-2024 Albumin/Globulin [Mass ratio] 1.0 {ratio} 0.9-2.4 [facility] ALP [Catalytic activity/Vol] 71 U/L 45-117 [facility] ALT [Catalytic activity/Vol] 74 U/L 16-61 [facility] Cholesterol in HDL [Mass/Vol] 31 mg/dL >40 [facility] Comment on above: The drugs N-Acetylcy steine and Metamizole may falsely depress this assay. Reference Range HDL <40 mg/dL Low HDL Cholesterol HDL >or= 60 mg/dL High HDL Cholesterol Cholesterol in LDL [Mass/Vol] 13 mg/dL 0-130 [facility] CO2 [Moles/Vol] 28.0 mmol/L 21.0-32.0 [facility] Globulin (S) [Mass/Vol] 4.1 g/dL 2.2-4.2 [facility] Urea nitrogen/Creatinine [Mass ratio] 16.5 mg/mg 10-20 [facility] No Panel InformationOrdered By: Juan Sousa on 01-10-2024 Estimated GFR (MDRD) Amer 65 mL/min >60 [facility] Comment on above: GFR Calc Estimated GFR (MDRD) Non-Af Amer 54 mL/min >60 [facility] Comment on above: Non- GFR Calc VLDL Cholesterol 23 mg/dL 5-40 [facility] Serum or plasma calcium nolan urement (mass/volume)Ordered By: Juan Sousa on 01-10-2024 Calcium [Mass/Vol] 9.3 mg/dL 8.5-10.1 [facility] Serum or plasma creatinine m easurement (mass/volume)Ordered By: Juan Sousa on 01-10-2024 Creatinine [Mass/Vol] 1.39 mg/dL 0.70-1.30 [facility] Comment on above: The validity of the calculated GFR & GFRAA in patients over 70 years has not been determined. Clinical correlation is essential. Serum or plasma urea nitroge n measurement (mass/volume)Ordered By: Juan Sousa on 01-10-2024 Urea nitrogen [Mass/Vol] 23 mg/dL 7-18 [facility] Thin prep Papanicolaou smear with manual screeningOrdered By: Juan Sousa on 01-10-2024 Thin prep Papanicolaou smear with manual screening 4.0 g/dL 3.2-5.0 [facility] Thin prep Papanicolaou smear with manual screening 31 U/L 15-37 [facility] Thin prep Papanicolaou smear with manual screening 5 5-15 [facility] 12-01-2023 36 Called and spoke to patient. Patient spoke to Dr. 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 Patient did state he forgot to take his medication last night which was why it was elevated, after taking the medication his blood pressure did come down to the 140s. I did talk to him about taking his BP before his medication and an hour after his medication and keeping a log of his pressures. Patient states understanding. Patient has no other concerns at this time. [facility] 3611-30-2023 36 Name of caller requesting page:Jadon Phone Number of caller: [phone] Facility requesting page: Patient Reason for Page: BP 180/93 following heart surgery Provider paged: Dr. Llamas Practice Name of paged provider: Cardiothoracic Surgery Page Placed to #: Secure chat in EPIC Time Page was sent or provider contacted: 8:08 pm Page Content: Please contact Patient directly at [phone] regarding heart surgery on 10/03/23 and BP is now 180/93. Patient wanted to know if that was something he needs to worry about. Please advise, thank you. [facility] Progress Noteon 11-08-2023 Progress Note [facility]: [facility] [address] [facility] [address] Dept: [phone] Dept Loc: [phone] Visit type: Established patient - Virtual Reason for Visit: Post-op Surgery/Procedure: 10/03/23: CABG x3 (SCHWAB-LAD, SVG-PDA, SVG-PL), LLE EVH with Dr. Beverly Assessment/Plan POD#36 Day from Discharge (10/07/23) #32 -Reviewed current meds Continue as ordered- ASA, Statin, & BB -Surgical Incisions: Per patient-healing appropriately, well approximated, no s/s of infection -Physical therapy as outlined in discharge instructions: Continue HHC -Acute Post-Operative Pain Tx plan: OTC as needed Wires Only Weight restriction measures 5-8 weeks from date of surgery- 20lbs weight restriction: 11/28/23 Disposition: F/U with CTS PRN F/U with [place] [facility] 11/22 Patient verbalized understanding of plan and stated they would call if any questions or concerns arise. Treatment Team: PCP: JUAN SOUSA MD Cardiology: Patient was seen today via Telehealth by agreement and consent. I used the following Telehealth technology: Audio capability only. Total length of call 15 minutes. The patient was offered and advised video for a more comprehensive evaluation, but the patient declined or was unable to use video. Patient location: VV Patient Location: Home. This patient encounter is appropriate and reasonable under the circumstances: transportation issues . The patient has been advised of the potential risks and limitations of this mode of treatment (including but not limited to the absence of in-person examination) and has agreed to be treated in a remote fashion in spite of them. Any and all of the patient's/patient's family's questions on this issue have been answered and I have made no promises or guarantees to the patient. The patient has also been advised to contact this office for worsening conditions or problems, and seek emergency medical treatment and/or call 911 if the patient deems either necessary. The patient stated that they are currently in the state of [place]. If the patient is a minor, permission has been obtained by the parent or guardian for the patient to receive medical care at this visit. Patient identification was verified at the start of the visit: yes Total time spent on this encounter: 30 minutes Subjective HPI: 67 year old male patient with a known PMHx that includes HTN, HLD, and smoking. He presented to [place] ED on 09/27/23 after he was called with results of a stress test he underwent. The stress test was completed earlier in the day on 09/27/23 and was positive for reversible ischemia. On admission in ED, his EKG showed T wave inversions in lead III and aVF, troponin negative. He was started on aspirin, heparin and Cardiology consulted. He had a cardiac catheterization on 09/28/23 which revealed multivessel CAD. He was transferred to [facility] for CABG. Was taken for CABG x3 with Dr. Beverly on 10/03/23. Postoperative course was uncomplicated, he was d/c'ed home on 10/07/23. 11/08/23: Spoke with patient for VV follow up. Patient is doing very well at home. Has been doing exercises & walks every day. Denies CP, leg swelling, or weight gain. Pain is controlled- not requiring any pain medications most days, only takes Acetaminophen when needed. He denies any incisional issues. Overall doing very well and recovering nicely. Review of Systems Constitutional: Negative for diaphoresis, fatigue and fever. Respiratory: Negative for cough, shortness of breath and wheezing. Cardiovascular: Negative for chest pain, palpitations and leg swelling. Gastrointestinal: Negative for abdominal distention, constipation and diarrhea. Skin: Negative for color change, pallor and rash. Objective Patient reported: none noted Wt Readings from Last 3 Encounters: 10/11/23 212 lb (96.2 kg) 10/07/23 214 lb 8.1 oz (97.3 kg) Physical exam deferred due to virtual visit-with audio (telephone) capabilities only Labs/Imaging/Testing: reviewed EMR, see A&P for pertinent diagnostic results related to office visit Disclaimer INFORMED CONSENT:The nature and purpose of the proposed treatment or procedure have been discussed. The risks and benefits of the proposed treatment or procedures have been reviewed. Alternatives have been reviewed in addition to the risks and benefits of not receiving treatments or undergoing procedures. Pursuant to this discussion, the patient agrees to undergo the proposed treatment or procedure. Captured images seen in this note from are not a substitute for a comprehensive interpretation of the entire data set as reflected by the interpreting physician with regard to radiology, echocardiography, and other diagnostic images. This note may have been dictated using [employer] Practice Edition 2.6 and/or [employer] Voice Recognition Feature. The document was proofread, however unrecognized voice recogni (more content not included)... [facility] Progress Noteon 10-26-2023 Progress Note [facility] Group: [facility] [address] [facility] [address] Dept: [phone] Dept Loc: [phone] Visit type: Established patient - Virtual Reason for Visit: Post-op Surgery/Procedure: 10/03/23: CABG x3 (SCHWAB-LAD, SVG-PDA, SVG-PL), LLE EVH with Dr. Beverly Assessment/Plan POD#23 Day from Discharge (10/07/23) #19 -Reviewed current meds Continue as ordered- ASA, Statin, & BB -Surgical Incisions: Per patient-healing appropriately, well approximated, no s/s of infection -Physical therapy as outlined in discharge instructions: continues with HHC/PT -Acute Post-Operative Pain Tx plan: OTC as needed Weight restriction measures 1-4 weeks from date of surgery- 10lbs weight restriction: 10/31/23 5-8 weeks from date of surgery- 20lbs weight restriction: 11/28/23 9-12 weeks from date of surgery-30lbs weight restriction approximate end date: 12/26/23 Disposition: F/U with VV in 2 weeks F/U with [place] [facility] end of month Patient verbalized understanding of plan and stated they would call if any questions or concerns arise. Treatment Team: PCP: JUAN SOUSA MD Cardiology: [facility] Patient was seen today via Telehealth by agreement and consent. I used the following Telehealth technology: Audio capability only. Total length of call 15 minutes. The patient was offered and advised video for a more comprehensive evaluation, but the patient declined or was unable to use video. Patient location: VV Patient Location: Home. This patient encounter is appropriate and reasonable under the circumstances: transportation issues . The patient has been advised of the potential risks and limitations of this mode of treatment (including but not limited to the absence of in-person examination) and has agreed to be treated in a remote fashion in spite of them. Any and all of the patient's/patient's family's questions on this issue have been answered and I have made no promises or guarantees to the patient. The patient has also been advised to contact this office for worsening conditions or problems, and seek emergency medical treatment and/or call 911 if the patient deems either necessary. The patient stated that they are currently in the [facility]. If the patient is a minor, permission has been obtained by the parent or guardian for the patient to receive medical care at this visit. Patient identification was verified at the start of the visit: yes Total time spent on this encounter: 30 minutes Subjective HPI: 67 year old male patient with a known PMHx that includes HTN, HLD, and smoking. He presented to [place] ED on 09/27/23 after he was called with results of a stress test he underwent. The stress test was completed earlier in the day on 09/27/23 and was positive for reversible ischemia. On admission in ED, his EKG showed T wave inversions in lead III and aVF, troponin negative. He was started on aspirin, heparin and Cardiology consulted. He had a cardiac catheterization on 09/28/23 which revealed multivessel CAD. He was transferred to [facility] for CABG. Was taken for CABG x3 with Dr. Beverly on 10/03/23. Postoperative course was uncomplicated. He will d/c with close follow up. 10/26/23: Spoke with patient for VV follow up. He is doing well at home, is walking daily. He denies incisional issues, SOB, or leg swelling. Does have some soreness in his chest when using arms or with sneezing. Reports his appetite has improved and he is sleeping well. Taking all meditations as ordered. Has HHC/PT visiting. Review of Systems Constitutional: Negative for diaphoresis, fatigue and fever. Respiratory: Negative for cough, shortness of breath and wheezing. Cardiovascular: Negative for chest pain, palpitations and leg swelling. Gastrointestinal: Negative for abdominal distention, constipation and diarrhea. Skin: Negative for color change, pallor and rash. Objective Wt Readings from Last 3 Encounters: 10/11/23 212 lb (96.2 kg) 10/07/23 214 lb 8.1 oz (97.3 kg) Physical exam deferred due to virtual visit-with audio (telephone) capabilities only Labs/Imaging/Testing: reviewed EMR, see A&P for pertinent diagnostic results related to office visit Disclaimer INFORMED CONSENT:The nature and purpose of the proposed treatment or procedure have been discussed. The risks and benefits of the proposed treatment or procedures have been reviewed. Alternatives have been reviewed in addition to the risks and benefits of not receiving treatments or undergoing procedures. Pursuant to this discussion, the patient agrees to undergo the proposed treatment or procedure. Captured images seen in this note from are not a substitute for a comprehensive interpretation of the entire data set as reflected by the interpreting physician with regard to radiology, echocardiography, and other diagnostic images. This note may have been dictated using [employer] (more content not included)... [facility] Absolute lymphocyte countOrd ered By: Juan Sousa on 10-12-2023 Lymphocytes Auto (Unsp spec) [#/Vol] 1.82 10*3/uL 0.83-4.51 [facility] Basophil percentageOrdered B y: Juan Sousa on 10-12-2023 Basophils/100 WBC (Bld) 0.5 % 0-1 [facility] Chloride [Moles/Vol] 111 mmol/L 98-107 [facility] Cholesterol [Mass/Vol] 53 mg/dL <200 [facility] Comment on above: <200 mg/dL Desirable 200-240 mg/dL Borderline >240 mg/dL High Risk Eosinophils/100 WBC (Bld) 5.1 % 0-5 [facility] Glucose [Mass/Vol] 93 mg/dL 74-106 [facility] Neutrophils (Bld) [#/Vol] 4.9 10*3/uL 2.0-7.7 [facility] Neutrophils/100 WBC (Bld) 62.2 % 47-70 [facility] Potassium [Moles/Vol] 4.9 mmol/L 3.5-5.1 [facility] Sodium [Moles/Vol] 140 mmol/L 136-145 [facility] Triglyceride [Mass/Vol] 121 mg/dL <199 [facility] Comment on above: The drugs N-Acetylcy steine and Metamizole may falsely depress this assay.Serum Triglycerides Reference Interval Normal <150 mg/dL Borderline high 150 - 199 mg/dL High 200 - 499 mg/dL Very High > or = 500 mg/dL WBC (Bld) [#/Vol] 7.8 10*3/uL 4.4-11.0 [facility] Blood erythrocytes count (nu mber/volume)Ordered By: Juan Sousa on 10-12-2023 RBC (Bld) [#/Vol] 3.47 10*6/uL 4.6-6.2 [facility] Blood hemoglobin measurement (mass/volume)Ordered By: Juan Sousa on 10-12-2023 Hemoglobin (Bld) [Mass/Vol] 10.2 g/dL 13.0-16.5 [facility] Blood lymphocytes/100 leukoc ytesOrdered By: Juan Sousa on 10-12-2023 Lymphocytes/100 WBC (Bld) 23.3 % 19-41 [facility] Blood monocytes/100 leukocyt esOrdered By: Juan Sousa on 10-12-2023 Monocytes/100 WBC (Bld) 8.3 % 0-10 [facility] Blood platelet mean volumeOr dered By: Juan Sousa on 10-12-2023 Platelet mean volume (Bld) [Entitic vol] 9.7 fL 6.2-12.0 [facility] Determination of erythrocyte mean corpuscular volume (MCV)Ordered By: Juan Sousa on 10-12-2023 MCV (RBC) [Entitic vol] 97.7 fL 80-94 [facility] Hematocrit Auto (Bld) [Volum e fraction]Ordered By: Juan Sousa on 10-12-2023 Hematocrit (Bld) [Volume fraction] 33.9 % 40-54 [facility] - Chemistry and C hemistry - challengeOrdered By: Juan Sousa on 10-12-2023 CO2 [Moles/Vol] 23.0 mmol/L 21.0-32.0 [facility] Urea nitrogen/Creatinine [Mass ratio] 16.4 mg/mg 10-20 [facility] - Hematology and Cell countsOrdered By: Juan Sousa on 10-12-2023 Erythrocyte distribution width (RBC) [Entitic vol] 49.2 fL 35.1-43.9 [facility] Erythrocyte distribution width (RBC) [Ratio] 13.9 % 11.6-14.6 [facility] Immature granulocytes/100 WBC (Bld) 0.600 % 0.0-0.9 [facility] Comment on above: IG% - Immature Granu locytes (promyelocytes, myelocytes and metamyelocytes) > 1% indicates that a LEFT SHIFT is Present. MCH (RBC) [Entitic mass] 29.4 pg 27.0-32.0 [facility] Nucleated RBC/100 WBC (Bld) [Ratio] 0 % 0-5 [facility] MCHC Auto (RBC) [Mass/Vol]Or dered By: Juan Sousa on 10-12-2023 MCHC (RBC) [Mass/Vol] 30.1 g/dL 32-36 [facility] No Panel InformationOrdered By: Juan Sousa on 10-12-2023 Estimated GFR (MDRD) Amer 72 mL/min >60 [facility] Comment on above: GFR Calc Estimated GFR (MDRD) Non-Af Amer 59 mL/min >60 [facility] Comment on above: Non- GFR Calc Platelets bldOrdered By: Carmen Sousa on 10-12-2023 Platelets (Bld) [#/Vol] 259 10*3/uL 150-450 [facility] Serum or plasma calcium nolan urement (mass/volume)Ordered By: Juan Sousa on 10-12-2023 Calcium [Mass/Vol] 8.8 mg/dL 8.5-10.1 [facility] Serum or plasma cholesterol in HDL measurement (mass/volume)Ordered By: Juan Sousa on 10-12-2023 Cholesterol in HDL [Mass/Vol] 20 mg/dL >40 [facility] Comment on above: The drugs N-Acetylcy steine and Metamizole may falsely depress this assay. Reference Range HDL <40 mg/dL Low HDL Cholesterol HDL >or= 60 mg/dL High HDL Cholesterol Serum or plasma cholesterol in VLDL measurement (mass/volume)Ordered By: Juan Sousa on 10-12-2023 Cholesterol in VLDL [Mass/Vol] 24 mg/dL 5-40 [facility] Serum or plasma creatinine m easurement (mass/volume)Ordered By: Juan Sousa on 10-12-2023 Creatinine [Mass/Vol] 1.28 mg/dL 0.70-1.30 [facility] Comment on above: The validity of the calculated GFR & GFRAA in patients over 70 years has not been determined. Clinical correlation is essential. Serum or plasma low density lipoprotein (LDL) cholesterol measurement (mass/volume)Ordered By: Juan Sousa on 10-12-2023 Cholesterol in LDL [Mass/Vol] 9 mg/dL 0-130 [facility] Serum or plasma urea nitroge n measurement (mass/volume)Ordered By: Juan Sousa on 10-12-2023 Urea nitrogen [Mass/Vol] 21 mg/dL 7-18 [facility] Thin prep Papanicolaou smear with manual screeningOrdered By: Juan Sousa on 10-12-2023 Thin prep Papanicolaou smear with manual screening 6 5-15 [facility] Office Visiton 10-11-2023 Follow-up visit [id number] Jadon Reyes 1955 M Date Provider Department [facility] Family History Problem Relation Age of Onset Coronary artery disease Father Coronary artery disease Maternal Grandfather Heart attack Maternal Grandfather Coronary artery disease Paternal Grandfather Heart attack Paternal Grandfather Family Status - Relation Status Age at Father Maternal Grandfather Paternal Grandfather Level of Service:[address]29 CT POSTOP FOLLOW UP VISIT RELATED TO ORIGINAL PX Reason for Visit and Comments: Post-op [483] Normal [facility] Progress Noteon 10-11-2023 Progress Note [facility] Medical Group: [facility] [address] [facility] [address] Dept: [phone] Dept Loc: [phone] Visit type: Established patient Reason for Visit: Post-op Assessment and Plan 1. CAD in [place] artery 2. S/P CABG (coronary artery bypass graft) 10/03/23: CABG x3 (SCHWAB-LAD, SVG-PDA, SVG-PL), LLE EVH POD#8 Day from Discharge (10/07/23) #4 -Reviewed current meds: - Continue current med regimen: ASA, Statin, BB - Robaxin & Oxycodone PRN for pain -Surgical Incisions: healing appropriately, well approximated, no s/s of infection. -Physical therapy as outlined in discharge instructions.Not ready for Cardiac Rehab and Not ready to drive. -Acute Post-Operative Pain controlled. Patient no longer taking narcotic opioid medication. Tx plan: Robaxin PRN, Continue to use narcotic/opioid analgesic medication, and Over The Counter-Tylenol (acetaminophen) 500 mg 1-2 tablets every 6 hours. No more than 4,000 mg in 24 hour period. Weight restriction measures 1-4 weeks from date of surgery- 10lbs weight restriction: 10/31/23 5-8 weeks from date of surgery- 20lbs weight restriction: 11/28/23 9-12 weeks from date of surgery-30lbs weight restriction approximate end date: 12/26/23 Disposition: F/U VV in 2 weeks Patient to make f/u with [facility] Patient verbalized understanding of plan and stated they would call if any questions or concerns arise. Treatment Team: PCP: JUAN SOUSA MD Subjective HPI: 67 year old male patient with a known PMHx that includes HTN, HLD, and smoking. He presented to [facility] on 09/27/23 after he was called with results of a stress test he underwent. The stress test was completed earlier in the day on 09/27/23 and was positive for reversible ischemia. On admission in ED, his EKG showed T wave inversions in lead III and aVF, troponin negative. He was started on aspirin, heparin and Cardiology consulted. He had a cardiac catheterization on 09/28/23 which revealed multivessel CAD. He was transferred to [facility] for CABG. Was taken for CABG x3 with Dr. Beverly on 10/03/23. Postoperative course was uncomplicated. He will d/c with close follow up. 10/11/23: Patient seen for initial postop visit. He is doing very well at home. Walking without any assistance. Denies CP, SOB, or incisional issues. Has minimal leg swelling that is improving. Is taking Robaxin for pain at night, otherwise using Acetaminophen only. Continues to improve, having no issues with recovery. Review of Systems Constitutional: Positive for activity change and appetite change. Negative for diaphoresis, fatigue and fever. Respiratory: Negative for cough, shortness of breath and wheezing. Cardiovascular: Positive for leg swelling (minimal). Negative for chest pain and palpitations. Gastrointestinal: Negative for abdominal distention, constipation and diarrhea. Skin: Negative for color change, pallor and rash. Allergies Allergen Reactions Lisinopril Cough Outpatient Medications Prior to Visit Medication Sig Dispense Refill acetaminophen (Tylenol) 500 MG tablet Take 2 tablets (1,000 mg) by mouth in the morning and 2 tablets (1,000 mg) at noon and 2 tablets (1,000 mg) before bedtime. Do all this for 10 days. aspirin 81 MG EC tablet Take 81 mg by mouth daily. atorvastatin (Lipitor) 80 MG tablet Take 1 tablet (80 mg) by mouth daily. 30 tablet 2 latanoprost (Xalatan) 0.005 % ophthalmic solution Administer 1 drop into both eyes Nightly. methocarbamol (Robaxin) 500 MG tablet Take 1 tablet (500 mg) by mouth every 8 hours as needed for muscle spasms for up to 5 days. 15 tablet 0 metoprolol tartrate (Lopressor) 25 MG tablet Take 1 tablet (25 mg) by mouth 2 times daily. 60 tablet 2 oxyCODONE (Roxicodone) 5 MG immediate release tablet Take 1 tablet (5 mg) by mouth every 6 hours as needed for severe pain (7-10) for up to 7 days. 28 tablet 0 No facility-administered medications prior to visit. Past Medical History: Diagnosis Date Glaucoma Hypertension Objective Patient reported: No flowsheet data found. Vitals: 10/11/23 0951 BP: 122/72 Pulse: 91 Wt Readings from Last 3 Encounters: 10/11/23 212 lb (96.2 kg) 10/07/23 214 lb 8.1 oz (97.3 kg) Physical Exam Cardiovascular: Rate and Rhythm: Normal rate and regular rhythm. Heart sounds: Normal heart sounds. Pulmonary: Effort: Pulmonary effort is normal. Breath sounds: Normal breath sounds. No decreased breath sounds, wheezing or rhonchi. Abdominal: General: Bowel sounds are normal. Palpations: Abdomen is soft. Tenderness: There is no abdominal tenderness. Musculoskeletal: Right lower le+ Edema present. Left lower le+ Edema present. Skin: General: Skin is warm and dry. Comments: Surgical Incisions: well approximate; clean dry with no drainage noted. Surrounding skin no redness, warmth, or signs of infection noted. Neurological: Mental Status: (more content not included)... Normal [facility] BASIC METABOLIC PANELon 11-1 Anion gap [Moles/Vol] 8 mmol/L Normal 3-13 [facility] Comment on above: Performed By: #### L AB103, LAB15 ####Assistant Chief Nursing Officer: MEME MA ([id number])[facility])[address] [place] [address] Calcium [Mass/Vol] 8.8 mg/dL Normal 8.4-10.4 [facility] Comment on above: Performed By: #### L AB103, LAB15 ####Assistant Chief Nursing Officer: MEME MA ([id number])[facility])[address] [place] [address] Chloride [Moles/Vol] 106 mmol/L Normal 98-107 [facility] Comment on above: Performed By: #### L AB103, LAB15 ####Assistant Chief Nursing Officer: MEME MA ([id number])[facility] ([facility])[address] [place] [address] CO2 [Moles/Vol] 26 mmol/L Normal 22-30 [facility] Comment on above: Performed By: #### L AB103, LAB15 ####Assistant Chief Nursing Officer: MEME MA ([id number])[facility])[address] [place] [address] Creatinine [Mass/Vol] 1.32 mg/dL High 0.66-1.25 [facility] Comment on above: Performed By: #### L AB103, LAB15 ####Assistant Chief Nursing Officer: MEME MA ([id number])[facility])[address] [place] [address] GLOMERULAR FILTRATION RATE ML/MIN/1.73 SQ M.PREDICTED 58.8 mL/min/1.73m*2 Low >60.0 [facility] Comment on above: Result Comment: Calc ulation based on the Chronic Kidney Disease Epidemiology Collaboration (CKD-EPI) equation refit without adjustment for race Performed By: #### L SUZIE, LAB15 ####Assistant Chief Nursing Officer: MEME MA ([id number])[facility] ([facility])[address] [place] [address] Glucose [Mass/Vol] 114 mg/dL High 70-100 [facility] Comment on above: Performed By: #### L AB103, LAB15 ####Assistant Chief Nursing Officer: MEME MA ([id number])[facility] ([facility])[address] [place] [address] Potassium [Moles/Vol] 4.4 mmol/L Normal 3.5-5.1 [facility] Comment on above: Performed By: #### L 103, LAB15 ####Assistant Chief Nursing Officer: MEME MA ([id number])[facility])[address] [place] [address] Sodium [Moles/Vol] 140 mmol/L Normal 135-145 [facility] Comment on above: Performed By: #### L SUZIE, LAB15 ####Assistant Chief Nursing Officer: MEME MA ([id number])[facility])[address] [place] [address] Urea nitrogen [Mass/Vol] 22 mg/dL High 9-20 [facility] Comment on above: Performed By: #### L 103, LAB15 ####Assistant Chief Nursing Officer: MEME MA ([id number])[facility])[address] [place] [address] Basic metabolic 1998 panelon 10-07-2023 Anion gap [Moles/Vol] 8 mmol/L 3 - 13 mmol/L [facility] Calcium [Mass/Vol] 8.8 mg/dL 8.4 - 10. 4 mg/dL [facility] Chloride [Moles/Vol] 106 mmol/L 98 - 10 7 mmol/L [facility] CO2 [Moles/Vol] 26 mmol/L 22 - 30 mmol/L [facility] Creatinine [Mass/Vol] 1.32 mg/dL High 0.66 - 1.25 mg/dL [facility] GFR/1.73 sq M.predicted MDRD (S/P/Bld) [Vol rate/Area] 58.8 mL/min/{1.73_m2} Low - PINF [facility] Glucose [Mass/Vol] 114 mg/dL High 70 - 100 mg/dL [facility] Interpretation and review of laboratory results Abnormal [facility] Potassium [Moles/Vol] 4.4 mmol/L 3.5 - 5.1 mmol/L [facility] Sodium [Moles/Vol] 140 mmol/L 135 - 145 mmol/L [facility] Urea nitrogen [Mass/Vol] 22 mg/dL High 9 - 20 mg/dL [facility] CARECOORDon 10-07-2023 [facility] Patient Choice Patient Name: JADON REYES Date of : 1955 Normal [facility] CBC (HEMOGRAM)on 10-07-2023 Erythrocyte distribution width (RBC) [Ratio] 14.2 % Normal 11.5-14.5 [facility] Comment on above: Performed By: #### L AB294 #### Assistant Chief Nursing Officer: MEME MA ([id number]) [address] ERYTHROCYTE MEAN CORPUSCULAR HEMOGLOBIN CONCENTRATION (G/DL) BY AUTOMATED 33.7 % Normal 32.0-36.0 [facility] Comment on above: Performed By: #### L AB294 #### Assistant Chief Nursing Officer: MEME MA ([id number]) [facility]) [address] [place] [address] Hematocrit (Bld) [Volume fraction] 29.1 % Low 40.0-52.0 [facility] Comment on above: Performed By: #### L AB294 #### Assistant Chief Nursing Officer: MEME MA ([id number]) [facility]) [address] [place] [address] [place] Hemoglobin (Bld) [Mass/Vol] 9.8 g/dL Low 13.0-18.0 [facility] Comment on above: Performed By: #### L AB294 #### Assistant Chief Nursing Officer: MEME MA ([id number]) [facility]) [address] [place] [address] MCH (RBC) [Entitic mass] 30.8 pg Normal 26.0-34.0 [facility] Comment on above: Performed By: #### L AB294 #### Assistant Chief Nursing Officer: MEME MA ([id number]) [facility] ([facility]) [address] [place] [address] MCV (RBC) [Entitic vol] 91.2 fL Normal 80.0-98.0 [facility] Comment on above: Performed By: #### L AB294 #### Assistant Chief Nursing Officer: MEME MA ([id number]) [facility]) [address] [place] [address] Platelet mean volume (Bld) [Entitic vol] 8.7 fL Normal 7.4-12.4 [facility] Comment on above: Performed By: #### L AB294 #### Assistant Chief Nursing Officer: MEME MA ([id number]) [facility] ([facility]) [address] [place] [address] Platelets (Bld) [#/Vol] 141 10*3/uL Normal 140-440 [facility] Comment on above: Performed By: #### L AB294 #### Assistant Chief Nursing Officer: MEME MA ([id number]) [facility]) [address] [place] [address] RBC (Bld) [#/Vol] 3.19 10*6/uL Low 4.40-5.90 [facility] Comment on above: Performed By: #### L AB294 #### Assistant Chief Nursing Officer: MEME MA ([id number]) [facility]) [address] [place] [address] WBC (Bld) [#/Vol] 4.9 10*3/uL Normal 3.6-10.7 [facility] Comment on above: Performed By: #### L AB294 #### Assistant Chief Nursing Officer: MEME MA ([id number]) [facility]) [address] [place] [address] CBC panel Auto (Bld)on 10-07 Erythrocyte distribution width (RBC) [Ratio] 14.2 % 11.5 - 14.5 % [facility] Hematocrit (Bld) [Volume fraction] 29.1 % Low 40.0 - 52.0 % [facility] Hemoglobin (Bld) [Mass/Vol] 9.8 g/dL Low 13.0 - 18.0 g/dL [facility] Interpretation and review of laboratory results Abnormal [facility] MCH (RBC) [Entitic mass] 30.8 pg 26. 0 - 34.0 pg [facility] MCHC (RBC) [Mass/Vol] 33.7 % 32.0 - 36.0 % [facility] MCV (RBC) [Entitic vol] 91.2 fL 80.0 - 98.0 fL [facility] Platelet mean volume (Bld) [Entitic vol] 8.7 fL 7.4 - 12.4 fL [facility] Platelets (Bld) [#/Vol] 141 10*3/uL 140 - 440 10*3/uL [facility] RBC (Bld) [#/Vol] 3.19 10*6/uL Low 4.40 - 5.9 0 10*6/uL [facility] WBC (Bld) [#/Vol] 4.9 10*3/uL 3.6 - 10.7 10*3/uL [facility] IDNon 10-07-2023 IDN Problem: Safety Goal: Patient will be injury free during hospitalization Outcome: Progressing Goal: I will remain free of falls Outcome: Progressing Problem: Daily Care Goal: Daily care needs are met Outcome: Progressing Problem: Pain - Adult Goal: Verbalizes/displays adequate comfort level or baseline comfort level Outcome: Progressing Problem: Discharge Planning Goal: Discharge to home or other facility with appropriate resources Outcome: Progressing Problem: Chronic Conditions and Co-morbidities Goal: Patient's chronic conditions and co-morbidity symptoms are monitored and maintained or improved Outcome: Progressing Problem: Problem Interventions Goal: Assess Nutritional Intake Outcome: Progressing The patient is Moderately Stable - Low risk of patient condition declining or worsening The patient's goals for the shift include The clinical goals for the shift include Over the shift, the patient did not make progress toward the following goals. Barriers to progression include weakness. Recommendations to address these barriers include assist with ambulation. Normal [facility] MAGNESIUMon 10-07-2023 Magnesium [Mass/Vol] 2.2 mg/dL Normal 1.6-2.3 [facility] Comment on above: Performed By: #### L AB103, LAB15 ####Assistant Chief Nursing Officer: MEME MA ([id number])[facility] ([facility] Magnesiumon 10-07-2023 Magnesium [Mass/Vol] 2.2 mg/dL 1.6 - 2 .3 mg/dL [facility] Magnesium [Mass/Vol]on 10-07 Interpretation and review of laboratory results Normal [facility] No Panel Informationon 10-07 [facility] Blood Expiration Date [id number] [facility] Crossmatch interpretation COMP [facility] Dispense Status Released from [employer] [facility] Product Blood Type 5100 [facility] PRODUCT CODE [id number] [facility] Unit ABO O [facility] RH Positive [facility] Volume 300 mL [facility] Nursing Noteon 10-07-2023 Nursing Note Discharge instructio ns gone over with patient, all questions answered. Patient taken to discharge in wheelchair. [facility] Nursing Note 10/07/23 @ 0340 Pt w as assisted to/from bathroom using walker with RN assist. Complete bath done with gown and linen changed d/t soiled linen from diaphoresis. Pt's T improved to 97.8 F. Will continue to monitor pt. Normal [facility] Prepare RBC: 2 Unitson 10-07 Unit Number [id number] [facility]th Unit Number [id number] [facility] Progress Noteon 10-07-2023 Progress Note Epicardial pacing wi re cut without difficulty per protocol. Patient and nurse educated on possible complications. Patient tolerated well. Will continue to monitor. Jacquelin Warren, ARCHIE - STAKEHOLDER MANAGER 10/07/23 Normal [facility] Progress Note PHYSICAL THERAPY [facility] Treatment Note Name/MRN: Jadon Reyes ([id number]) Date of : 1955 Age: 67 y.o. Room/Bed: T1-110/T1-110 A Discharge Recommendation: Home with Home PT Equipment Needed: none Prior Level of Function ADL Assistance: Independent Ambulation Assistance: Independent Transfer Assistance: Independent Assessment Pt ambulated without a device, did well, no LOB. Wet, non-productive cough. Mod assist for supine>sit, supervision for transfer and gait. Educated pt on home walking program and reviewed P&C exercises. Rec home with assist upon discharge. Subjective Pt in bed, agreeable to PT. Pain: Pt denies any current pain. Medical Precautions: No active isolations Proper PPE donned/doffed in accordance with facility standards. Fall Risk: Kahn Fall Risk Score: 60 (High Risk) Precautions/Restrictio ns: Sternal Precautions: Lifting restriction of no more than 10 lbs, undated movement restrictions to keep your move in the tube. Family/Caregiver Present: none Objective Ambulation Ambulation 1 Assistive device(s) used: none Assist level: Supervision Distance (ft): 25ft Quality of gait: No LOB, slow mikey Ambulation 2 Assistive device(s) used: none Assist level: Supervision Distance (ft): 300ft Quality of gait: No LOB, slow mikey Transfers/Mobility Sit to stand: Supervision Stand to sit: Supervision X2 reps; EOB and toilet Device(s) used: none Exercises Exercises Upper Extremity: P&C ex #1-9 all x 10 reps each Other exercises Other exercises 1: I.S. x 10 reps, 1,000mL Bed Mobility Supine to sit: Mod Assist Scooting: SBA HOB flat. Cues for log roll and sternal precautions. Plan Continue acute PT per plan of care. Safety/Education Safety Safety Devices in place: call light within reach, left in chair, and nurse notified Restraints: No Education Education Given To: patient Education Provided: PT Goals, Gait Training, Home Exercise Program, Precautions, Transfer Training, Discharge Recommendations, Benefits of Increasing Activity, Breathing Techniques, and I.S. and log roll technique. Education Method: Verbal Barriers to Learning: None Education Outcome: Verbalized Understanding Outcome Measures AM-PAC AM-PAC Inpatient Mobility Raw Score (No Stairs) : 17 JH-HLM -HLM Score: Walked 250 ft or more (i.e. several laps on unit) Goals Patient Stated Goal: To return home with Encounter Problems Encounter Problems (Active) Cardiac Patient will perform bed mobility with independence in order to improve independence and prepare for out of bed mobility. (Progressing) Start: 10/04/23 Expected End: 10/18/23 Patient will complete sit to stand transfer with modified independence to least restrictive device in order to improve safety and prepare for out of bed mobility. (Progressing) Start: 10/04/23 Expected End: 10/18/23 Patient will ambulate 200 feet or ambulate 5 minutes with modified independence with RPE of 14 or lower. (Progressing) Start: 10/04/23 Expected End: 10/18/23 Patient will ascend and descend 1 stairs with modified independence rail for balance only. (Not Addressed) Start: 10/04/23 Expected End: 10/18/23 Patient will be independent with P&C exercises. (Progressing) Start: 10/04/23 Expected End: 10/18/23 Patient will be independent with managing secretions and home walking program. (Progressing) Start: 10/04/23 Expected End: 10/18/23 Pain - Adult Therapy Time Individual Co-treatment Time In 0855 Time Out 0912 Minutes 17 Timed Code Treatment Minutes: 17 Minutes (gait) Tila Holguin PTA [facility] XR CHEST 1 VIEWon 10-07-2023 XR CHEST 1 VIEW Patient Name: JADON REYES : 1955 [facility]#: [id number] Exam Date/Time: 10/07/2023 08:26 Procedure: XR CHEST 1 VIEW Ordering Provider: WARREN JENNIFER Reason For Exam: Shortness of breath CLINICAL INFORMATION: Shortness of breath. Portable view of the chest at 0820 hours is provided and compared to a previous study dated October 06, 2023. FINDINGS: The patient is status post CABG with the usual sternal wires and surgical clips. The heart size is normal. There is mild bibasilar atelectasis. There is no pneumothorax. IMPRESSION: 1. Postoperative changes (CABG). 2. Mild bibasilar atelectasis. 3. No significant change from yesterday's study. Report Dictated on Electronically Signed By: Fede Garcia MD Electronically Signed Date/Time: 10/07/2023 8:23 AM EST Normal [facility] XR Chest Single viewon 10-07 [facility] Radiology Study observation (narrative) [facility] XR Chest Single viewOrdered By: Fede Garcia on 10-07-2023 [facility] Work Phone: BASIC METABOLIC PANELon 09-27 Anion gap [Moles/Vol] 7 mmol/L Normal 3-13 [facility] Comment on above: Performed By: #### L AB294 #### Assistant Chief Nursing Officer: MEME MA ([id number]) [facility] ([facility]) [address] [place] [address] Calcium [Mass/Vol] 8.7 mg/dL Normal 8.4-10.4 [facility] Comment on above: Performed By: #### L AB294 #### Assistant Chief Nursing Officer: MEME MA ([id number]) [facility] ([facility]) [address] [place] [address] [place] Chloride [Moles/Vol] 105 mmol/L Normal 98-107 [facility] Comment on above: Performed By: #### L AB294 #### Assistant Chief Nursing Officer: MEME MA ([id number]) [facility] ([facility]) [address] [place] [address] [place] CO2 [Moles/Vol] 26 mmol/L Normal 22-30 [facility] Comment on above: Performed By: #### L AB294 #### Assistant Chief Nursing Officer: MEME MA ([id number]) [facility] ([facility]) [address] [place] [address] [place] Creatinine [Mass/Vol] 1.28 mg/dL High 0.66-1.25 [facility] Comment on above: Performed By: #### L AB294 #### Assistant Chief Nursing Officer: MEME MA ([id number]) [facility] ([facility]) [address] [place] [address] GLOMERULAR FILTRATION RATE ML/MIN/1.73 SQ M.PREDICTED 61.0 mL/min/1.73m*2 Normal >60.0 [facility] Comment on above: Result Comment: Calc ulation based on the Chronic Kidney Disease Epidemiology Collaboration (CKD-EPI) equation refit without adjustment for race Performed By: #### L AB294 #### Assistant Chief Nursing Officer: MEME MA ([id number]) [facility] [address] [place] [address] Glucose [Mass/Vol] 113 mg/dL High 70-100 [facility] Comment on above: Performed By: #### L AB294 #### Assistant Chief Nursing Officer: MEME MA ([id number]) [facility] ([facility]) [address] [place] [address] Potassium [Moles/Vol] 4.3 mmol/L Normal 3.5-5.1 [facility] Comment on above: Performed By: #### L [id number] #### Assistant Chief Nursing Officer: MEME MA ([id number]) [facility] [address] [place] [address] [place] Sodium [Moles/Vol] 138 mmol/L Normal 135-145 [facility] Comment on above: Performed By: #### L AB294 #### Assistant Chief Nursing Officer: MEME MA ([id number]) [facility] [address] [place] [address] [place] Urea nitrogen [Mass/Vol] 24 mg/dL High 9-20 [facility] Comment on above: Performed By: #### L AB294 #### Assistant Chief Nursing Officer: MEME MA ([id number]) [facility] ([facility]) [address] [place] [address] Basic metabolic 1998 panelon 10-06-2023 Anion gap [Moles/Vol] 7 mmol/L 3 - 13 mmol/L [facility] Calcium [Mass/Vol] 8.7 mg/dL 8.4 - 10. 4 mg/dL [facility] Chloride [Moles/Vol] 105 mmol/L 98 - 10 7 mmol/L [facility] CO2 [Moles/Vol] 26 mmol/L 22 - 30 mmol/L [facility] [facility] Creatinine [Mass/Vol] 1.28 mg/dL High 0.66 - 1.25 mg/dL [facility] GFR/1.73 sq M.predicted MDRD (S/P/Bld) [Vol rate/Area] 61.0 mL/min/{1.73_m2} - PINF [facility] Glucose [Mass/Vol] 113 mg/dL High 70 - 100 mg/dL [facility] Interpretation and review of laboratory results Abnormal [facility] Potassium [Moles/Vol] 4.3 mmol/L 3.5 - 5.1 mmol/L [facility] Sodium [Moles/Vol] 138 mmol/L 135 - 145 mmol/L [facility] Urea nitrogen [Mass/Vol] 24 mg/dL High 9 - 20 mg/dL [facility] CBC (HEMOGRAM)on 10-06-2023 Erythrocyte distribution width (RBC) [Ratio] 14.2 % Normal 11.5-14.5 [facility] Comment on above: Performed By: #### L [id number] #### Assistant Chief Nursing Officer: MEME MA ([id number]) [facility]) [address] [place] [address] ERYTHROCYTE MEAN CORPUSCULAR HEMOGLOBIN CONCENTRATION (G/DL) BY AUTOMATED 33.8 % Normal 32.0-36.0 [facility] Comment on above: Performed By: #### L [id number] #### Assistant Chief Nursing Officer: MEME MA ([id number]) [facility] ([facility]) [address] [place] [address] [place] Hematocrit (Bld) [Volume fraction] 27.6 % Low 40.0-52.0 [facility] Comment on above: Performed By: #### L [id number] #### Assistant Chief Nursing Officer: MEME MA ([id number]) [facility] ([facility]) [address] [place] [address] [place] Hemoglobin (Bld) [Mass/Vol] 9.3 g/dL Low 13.0-18.0 [facility] Comment on above: Performed By: #### L [id number] #### Assistant Chief Nursing Officer: MEME MA ([id number]) [facility] ([facility]) [address] [place] [address] MCH (RBC) [Entitic mass] 31.0 pg Normal 26.0-34.0 [facility] Comment on above: Performed By: #### L [id number] #### Assistant Chief Nursing Officer: MEME MA ([id number]) [facility] ([facility]) [address] [place] [address] MCV (RBC) [Entitic vol] 91.8 fL Normal 80.0-98.0 [facility] Comment on above: Performed By: #### L [id number] #### Assistant Chief Nursing Officer: MEME MA ([id number]) [facility] ([facility]) [address] [place] [address] Platelet mean volume (Bld) [Entitic vol] 8.4 fL Normal 7.4-12.4 [facility] Comment on above: Performed By: #### L [id number] #### Assistant Chief Nursing Officer: MEME MA ([id number]) [facility] ([facility]) [address] [place] [address] Platelets (Bld) [#/Vol] 106 10*3/uL Low 140-440 [facility] Comment on above: Performed By: #### L [id number] #### Assistant Chief Nursing Officer: MEME MA ([id number]) [facility] ([facility]) [address] [place] [address] RBC (Bld) [#/Vol] 3.01 10*6/uL Low 4.40-5.90 [facility] Comment on above: Performed By: #### L [id number] #### Assistant Chief Nursing Officer: MEME MA ([id number]) [facility] ([facility]) [address] [place] [address] [place] WBC (Bld) [#/Vol] 6.4 10*3/uL Normal 3.6-10.7 [facility] Comment on above: Performed By: #### L [id number] #### Assistant Chief Nursing Officer: MEME MA ([id number]) [facility]) [address] CBC panel Auto (Bld)Ordered By: Chilo Hathaway on 10-06-2023 Erythrocyte distribution width (RBC) [Ratio] 14.2 % 11.5 - 14.5 % [facility] Hematocrit (Bld) [Volume fraction] 27.6 % Low 40.0 - 52.0 % [facility] Hemoglobin (Bld) [Mass/Vol] 9.3 g/dL Low 13.0 - 18.0 g/dL [facility] Interpretation and review of laboratory results Abnormal [facility] MCH (RBC) [Entitic mass] 31.0 pg 26. 0 - 34.0 pg [facility] MCHC (RBC) [Mass/Vol] 33.8 % 32.0 - 36.0 % [facility] MCV (RBC) [Entitic vol] 91.8 fL 80.0 - 98.0 fL [facility] Platelet mean volume (Bld) [Entitic vol] 8.4 fL 7.4 - 12.4 fL [facility] Platelets (Bld) [#/Vol] 106 10*3/uL Low 140 - 440 10*3/uL [facility] RBC (Bld) [#/Vol] 3.01 10*6/uL Low 4.40 - 5.9 0 10*6/uL [facility] WBC (Bld) [#/Vol] 6.4 10*3/uL 3.6 - 10.7 10*3/uL [facility] MAGNESIUMon 10-06-2023 Magnesium [Mass/Vol] 2.2 mg/dL Normal 1.6-2.3 [facility] Comment on above: Performed By: #### L [id number] #### Assistant Chief Nursing Officer: MEME MA ([id number]) [facility] ([facility]) [address] Magnesiumon 10-06-2023 Magnesium [Mass/Vol] 2.2 mg/dL 1.6 - 2 .3 mg/dL [facility] Magnesium [Mass/Vol]on 10-06 Interpretation and review of laboratory results Normal [facility] No Panel Informationon 10-06 [facility] Nursing Noteon 10-06-2023 Nursing Note 10/06/23 @ 2037 Pt assessed. A&Ox4. VSS. Noted T 99.1 F (temporal). Will continue to monitor temperatures. Pt c/o intermittent chest discomfort to mid sternal chest site 02/03 with movement. Will medicate pt with scheduled Tylenol. Normal [facility] Progress Noteon 10-06-2023 Progress Note PHYSICAL THERAPY [facility] Treatment Note Name/MRN: Jadon Reyes ([id number]) Date of : 1955 Age: 67 y.o. Room/Bed: T1-110/T1-110 A Discharge Recommendation: Home with Home PT Equipment Needed: none Prior Level of Function ADL Assistance: Independent Ambulation Assistance: Independent Transfer Assistance: Independent Assessment Pt progressing towards goals. Increase gait distance, tolerated stairs well. SBA for transfer, gait and stairs. Cues for sternal precautions. Rec home with assist upon discharge. Subjective Pt reclined in chair, agreeable to PT. Pain: Pt denies any current pain. Medical Precautions: No active isolations Proper PPE donned/doffed in accordance with facility standards. Fall Risk: Kahn Fall Risk Score: 60 (High Risk) Precautions/Restrictio ns: Sternal Precautions: Lifting restriction of no more than 10 lbs, undated movement restrictions to keep your move in the tube. Lines/Drains/Airways: Inducer Overall Cognitive Status: WNL Overall Orientation Status: Oriented x4 Family/Caregiver Present: none Objective Ambulation Ambulation 1 Assistive device(s) used: rollator Assist level: SBA Distance (ft): 400ft Quality of gait: No LOB, slow mikey Ambulation 2 Assistive device(s) used: none Assist level: SBA Distance (ft): 15ft, 20ft Quality of gait: No LOB, uneven step length, slow mikey Transfers/Mobility Sit to stand: SBA Stand to sit: SBA X3 reps; cues for sternal precautions. Device(s) used: none Exercises Exercises Upper Extremity: P&C ex #1-9 all x 10 reps each Balance: dynamic standing with functional reaching, hand hygiene, SBA for balance. Plan Continue acute PT per plan of care. Safety/Education Safety Safety Devices in place: call light within reach and left in chair Restraints: No Education Education Given To: patient Education Provided: PT Goals, Gait Training, Home Exercise Program, Precautions, Discharge Recommendations, Breathing Techniques, and P&C exercises, sternal precautions Education Method: Verbal Barriers to Learning: None Education Outcome: Verbalized Understanding Outcome Measures AM-PAC JH-HLM -HLM Score: Walked 250 ft or more (i.e. several laps on unit) Goals Patient Stated Goal: To return home with Encounter Problems Encounter Problems (Active) Cardiac Patient will perform bed mobility with independence in order to improve independence and prepare for out of bed mobility. (Not Addressed) Start: 10/04/23 Expected End: 10/18/23 Patient will complete sit to stand transfer with modified independence to least restrictive device in order to improve safety and prepare for out of bed mobility. (Progressing) Start: 10/04/23 Expected End: 10/18/23 Patient will ambulate 200 feet or ambulate 5 minutes with modified independence with RPE of 14 or lower. (Progressing) Start: 10/04/23 Expected End: 10/18/23 Patient will ascend and descend 1 stairs with modified independence rail for balance only. (Progressing) Start: 10/04/23 Expected End: 10/18/23 Patient will be independent with P&C exercises. (Progressing) Start: 10/04/23 Expected End: 10/18/23 Patient will be independent with managing secretions and home walking program. (Progressing) Start: 10/04/23 Expected End: 10/18/23 Pain - Adult Therapy Time Individual Co-treatment Time In 1301 Time Out 1326 Minutes 25 Timed Code Treatment Minutes: 25 Minutes (gait; tp) Tila Holguin, [facility] Progress Note Nutrition Assessment Type and Reason for Visit: Reassess Nutrition Recommendations/Plan: Per MNT protocol, will discontinue carb limit (no hx DM, not requiring insulin, endocrinology signed off) Continue ONS: Ensure HP BID Provided heart healthy diet education as described in assessment RD will monitor overall nutrition status and will follow weekly Diet Education: Educated on heart healthy diet Learners: Patient Readiness: Acceptance Method: Explanation and Handout Response: Verbalizes Understanding Contact name and number provided. Malnutrition Assessment: Malnutrition Status: At risk for malnutrition (Comment) Context: Acute Illness Nutrition Assessment: Pt remains on CTV ICU s/p CABGx3 on 10/03. He reports appetite is coming back, states he ate well at breakfast, reports he is consuming ONS. Pt is agreeable to diet education at this time. RD provided heart healthy diet education including increasing fiber, vegetables, and whole fruit, avoiding use of salt as well as processed and other high sodium foods, limiting cholesterol intake, saturated fat vs unsaturated fat, choosing lean proteins and low fat dairy, reading nutrition labels, etc. Pt has heart healthy diet handout with [facility] RD phone number for reference. He verbalized understanding at conclusion of education. Estimated Daily Nutrient Needs: Energy Requirements Based On: Kcal/kg Weight Used for Energy Requirements: [place]ning (25-30 kcal/kg) Weight for Energy Calculation (kg): 80.7 kg Total Energy Requirements (kcals/day): 3967-0314 Weight Used for Protein Requirements: [place] (1.2-1.5 g/kg) Weight in Kg Used for Protein Requirements: 80.7 kg Estimated Total Protein (g/day): 97-121 Estimated Daily Total Fluid (ml/day): per MD Nutrition Related Findings: Nutrition History: Independent of feeding. Lives with: Spouse/significant other Teeth: Intact GI symptoms: Decreased appetite. Burt Scale Score: 18 .Wound Type: Surgical Incision Net IO Since Admission: 1,805.28 mL [10/06/23 1309] Edema: RUE Edema: None, LUE Edema: None, RLE Edema: Non-pitting, LLE Edema: Non-pitting Bowel Sounds (All Quadrants): Active Abdomen Inspection: Soft, Rounded Last BM Date: 10/05/23 Labs and meds reviewed: acetaminophen, 1,000 mg, Oral, q8h aspirin, 324 mg, Oral, Daily atorvastatin, 80 mg, Oral, Daily chlorhexidine, 15 mL, Mouth/Throat, BID heparin, 5,000 Units, SubCUTAneous, BID latanoprost, 1 drop, Both Eyes, Nightly Lidocaine, 1 patch, Topical, Daily methocarbamol, 500 mg, Oral, 3 times per day metoprolol tartrate, 25 mg, Oral, BID mupirocin, , Nasal, BID pantoprazole, 40 mg, Oral, qAM AC polyethylene glycol (PEG) 3350, 17 g, Oral, Daily senna-docusate sodium, 2 tablet, Oral, Nightly sodium chloride 0.9%, 10 mL, IntraVENous, 2 times per day lactated ringers, 250 mL BMP: Recent Labs 10/04/23 0005 10/05/23 0023 10/06/23 0229 NA 139 137 138 K 4.9 4.5 4.3 CL 108* 104 105 CO2 21* 25 26 BUN 22* 22* 24* CREATININE 1.46* 1.49* 1.28* GLUCOSE 130* 140* 113* CALCIUM 8.2* 8.6 8.7 MG 2.6* 2.4* 2.2 Recent Labs 10/04/23 1302 10/04/23 1408 10/04/23 1504 10/04/23 1757 10/05/23 0943 10/05/23 1213 POCGLU 126* 125* 131* 121* 144* 154* Lab Results Component Value Date HGBA1C 5.4 09/29/2023 Lab Results Component Value Date EFBP 55 09/29/2023 Current Nutrition Therapies: Adult diet Regular; 4 carb choices (60 gm/meal) Current Oral Intake Average Meal Intake: (improving) Average Supplements Intake: 76-100% Anthropometric Measures: Height: 182.9 cm (6') Current Body Weight: 98.2 kg (216 lb 7.9 oz) Admission Body Weight: 98.8 kg (217 lb 13 oz) (09/29) Usual Body Weight: 101 kg (222 lb) (06/08/23) % Weight Change (Calculated): -1.4 [place] Body Weight (lbs) (Calculated): 178 lbs [place] Body Weight (Kg) (Calculated): 81 kg % [place] Body Weight (Calculated): 123 % BMI (kg/m2) (Calculated): 29.4 BMI Categories: Overweight (BMI 25.0-29.9) Wt Readings from Last 10 Encounters: 10/06/23 98.2 kg (216 lb 7.9 oz) Nutrition Diagnosis: Increased nutrient needs related to increase demand for energy/nutrients as evidenced by wounds (surgical) Nutrition Interventions: Food and/or Nutrient Delivery: Modify Current Diet, Continue Oral Nutrition Supplement Nutrition Education/Counseling: Education completed Coordination of Nutrition Care: Continue to monitor while inpatient Goals: Goals: PO intake 75% or greater, prior to discharge Nutrition Monitoring and Evaluation: Behavioral-Environment al Outcomes: Knowledge or Skill Food/Nutrient Intake Outcomes: Food and Nutrient Intake, Supplement Intake Physical Signs/Symptoms Outcomes: Biochemical Data, GI Status, Skin, Weight Discharge Planning: Too soon to determine Nae Hagen RD, LD Contact: *[phone] or via [employer] chat [facility] Progress Note OCCUPATIONAL THERAPY [facility] Name/MRN: Jadon Reyes ([id number]) Date: 10/06/2023 OT eval and treat order received. Patient chart reviewed. RN cleared patient for participation. Patient sleeping; patient easily awakened. Patient reports being tired and wanting to sleep more. Education provided. Will re-attempt at later date. Leta Costello OT [facility] Progress Note -- Attestation signed by Carlos Ospina DO at 10/06/2023 9:25 AM I have personally performed a [id number] diagnostic evaluation on this patient on date of service 10/06/23 . History, labs, imaging studies, and electronic medical record have been reviewed by me. This note documented by the []feed house supervisor [x]ANIBAL reflects my history, exam, and medical decision making. I have reviewed and agree with the care plan. Changes were made in the orders as necessary. ROS documentation was reviewed and negative unless otherwise stated in HPI. Additional pertinent interval history, ROS, and physical exam findings: No overnight events. Assessment: CABGx3 10/03/23 CAD s/p CABG Tobacco use HTN Stress hyperglycemia (resolved) Plan: Agree w/ plan as documented in ANIBAL note. Ongoing DC planning. Total critical care time for this patient with life-threatening unstable organ failure, including direct patient contact, management of life support systems, review of data including imaging and labs, and discussions with other team members and physicians at least 35min so far today, excluding procedures. Cardiothoracic Surgery/CCM Progress Note PATIENT NAME: Jadon Reyes DATE: 10/06/23 HPI: 67 year old male patient with a known PMHx that includes HTN, HLD, and smoking. He presented to [facility] ED on 09/27/23 after he was called with results of a stress test he underwent. The stress test was completed earlier in the day on 09/27/23 and was positive for reversible ischemia. On admission in ED, his EKG showed T wave inversions in lead III and aVF, troponin negative. He was started on aspirin, heparin and Cardiology consulted. He had a cardiac catheterization on 09/28/23 which revealed multivessel CAD. He was transferred to [facility] for CABG consideration, consented to surgical revascularization. Surgery/Procedure: 10/03/23: CABG x3 (SCHWAB-LAD, SVG-PDA, SVG-PL), LLE EVH Interval History: 10/06/23, POD# 03. Afebrile, NSR on tele, BP stable, on RA. Chest tubes removed yesterday. +BM. Up walking in unit with nursing this AM. Pain better controlled. Review of Systems Constitutional: Positive for fatigue. Negative for chills, diaphoresis and fever. Respiratory: Negative for cough, shortness of breath and wheezing. Cardiovascular: Negative for chest pain, palpitations and leg swelling. Gastrointestinal: Negative for abdominal distention, abdominal pain, nausea and vomiting. Neurological: Negative for dizziness, syncope and light-headedness. Objective: Vitals: BP: 110/65, MAP (mmHg): 79, BP Method: Automatic Heart Rate: 81 Resp: 16 Temp: 36.2 ?C (97.2 ?F), Temp Source: Temporal BMI (Calculated): 29.68 BMP: Recent Labs 10/03/23 1127 10/03/23 1313 10/04/23 0005 10/05/23 0023 10/06/23 0229 NA 144 < > 139 137 138 K 3.8 < > 4.9 4.5 4.3 CL 112* < > 108* 104 105 CO2 21* < > 21* 25 26 BUN 21* < > 22* 22* 24* CREATININE 1.33* < > 1.46* 1.49* 1.28* CALCIUM 8.3* < > 8.2* 8.6 8.7 MG 4.0* < > 2.6* 2.4* 2.2 PHOS 3.3 -- -- -- -- < > = values in this interval not displayed. CBC: Recent Labs 10/04/23 0005 10/05/23 0023 10/06/23 0229 WBC 7.0 6.8 6.4 HGB 10.2* 9.5* 9.3* HCT 29.5* 27.9* 27.6* PLT 114* 96* 106* MCV 90.4 91.8 91.8 RDW 14.2 14.4 14.2 INR: Recent Labs 10/03/23 1127 10/03/23 1313 10/04/23 0006 INR 1.3* 1.2* 1.1 Physical Exam Vitals reviewed. Constitutional: General: He is not in acute distress. Appearance: He is not ill-appearing or diaphoretic. Neck: Comments: Central line in place. Cardiovascular: Rate and Rhythm: Normal rate and regular rhythm. Pulses: Normal pulses. Heart sounds: No murmur heard. Pulmonary: Effort: Pulmonary effort is normal. Breath sounds: No wheezing, rhonchi or rales. Comments: Diminished throughout, shallow breaths. Abdominal: General: There is no distension. Palpations: Abdomen is soft. Tenderness: There is no abdominal tenderness. Musculoskeletal: General: No swelling. Skin: General: Skin is warm and dry. Capillary Refill: Capillary refill takes less than 2 seconds. Findings: Bruising present. Comments: MSI well approximated. No redness, warmth or drainage noted. Neurological: General: No focal deficit present. Mental Status: He is alert and oriented to person, place, and time. Psychiatric: Mood and Affect: Mood normal. Behavior: Behavior normal. Thought Content: Thought content normal. Judgment: Judgment normal. Assessment: Multivessel CAD s/p CABG HTN HLD Tobacco abuse, quit 2 weeks ago Post operative Pulm Management: Normal Post-operative Course Post-operative Atrial Fibrillation: []Yes [x] No Acute blood loss anemia/consumptive co (more content not included)... Normal [facility] XR CHEST 1 VIEWon 11-10-2023 XR CHEST 1 VIEW Patient Name: ERIC, JADON : 1955 Exam Date/Time: 10/06/2023 05:36 Procedure: XR CHEST 1 VIEW Ordering Provider: WARREN JENNIFER Reason For Exam: Shortness of breath CHEST - PORTABLE: CLINICAL INDICATION: Respiratory distress for follow up TECHNIQUE: Portable AP COMPARISON: One day ago FINDINGS: Life support devices: Right central venous sheath remains in place and there is probably a mediastinal drain Heart/Mediastinum: Unchanged Lungs/Pleura: Elongated regions of opacity in the lower hemithoraces likely atelectasis. No other upper lobe consolidation. No pneumothorax. The right costophrenic angle is sharp but the left is obscured. IMPRESSION: Atelectasis at the bases. No new consolidation. Report Dictated on Electronically Signed By: Fede Davenport MD Electronically Signed Date/Time: 10/06/2023 9:02 AM EST Normal [facility] XR Chest Single viewon 10-06 [facility] Radiology Study observation (narrative) [facility] XR Chest Single viewOrdered By: Fede Davenport on 10-06-2023 [facility] Work Phone: BASIC METABOLIC PANELon 0 Anion gap [Moles/Vol] 8 mmol/L Normal 3-13 [facility] Comment on above: Performed By: #### L AB15, [id number] ####Assistant Chief Nursing Officer: MEME MA ([id number])[facility])[address] [place] [address] Calcium [Mass/Vol] 8.6 mg/dL Normal 8.4-10.4 [facility] Comment on above: Performed By: #### L AB15, [id number] ####Assistant Chief Nursing Officer: MEME MA ([phone])[facility])[address] [place] [address] Chloride [Moles/Vol] 104 mmol/L Normal 98-107 [facility] Comment on above: Performed By: #### L AB15, [id number] ####Assistant Chief Nursing Officer: MEME MA ([phone])[facility] ([facility])[address] [place] [address] CO2 [Moles/Vol] 25 mmol/L Normal 22-30 [facility] Comment on above: Performed By: #### L AB15, [id number] ####Assistant Chief Nursing Officer: MEME MA ([id number])[facility])[address] [place] [address] Creatinine [Mass/Vol] 1.49 mg/dL High 0.66-1.25 [facility] Comment on above: Performed By: #### L AB15, [id number] ####Assistant Chief Nursing Officer: MEME MA ([phone])[facility])[address] [place] [address] GLOMERULAR FILTRATION RATE ML/MIN/1.73 SQ M.PREDICTED 50.8 mL/min/1.73m*2 Low >60.0 [facility] Comment on above: Result Comment: Calc ulation based on the Chronic Kidney Disease Epidemiology Collaboration (CKD-EPI) equation refit without adjustment for race Performed By: #### L AB15, [id number] ####Assistant Chief Nursing Officer: MEME MA ([phone])[facility])[address] [place] [address] Glucose [Mass/Vol] 140 mg/dL High 70-100 [facility] Comment on above: Performed By: #### L AB15, [id number] ####Assistant Chief Nursing Officer: MEME MA ([phone])[facility])[address] [place] [address] [place] Potassium [Moles/Vol] 4.5 mmol/L Normal 3.5-5.1 [facility] Comment on above: Performed By: #### L AB15, [id number] ####Assistant Chief Nursing Officer: MEME MA ([id number])[facility])[address] [place] [address] Sodium [Moles/Vol] 137 mmol/L Normal 135-145 [facility] Comment on above: Performed By: #### L AB15, [id number] ####Assistant Chief Nursing Officer: MEME MA ([id number])[facility] ([facility])[address] [place] [address] Urea nitrogen [Mass/Vol] 22 mg/dL High 9-20 [facility] Comment on above: Performed By: #### L AB15, [id number] ####Assistant Chief Nursing Officer: MEME MA ([id number])[facility] ([facility])[address] [place] [address] Basic metabolic 1998 panelon 10-05-2023 Anion gap [Moles/Vol] 8 mmol/L 3 - 13 mmol/L [facility] Calcium [Mass/Vol] 8.6 mg/dL 8.4 - 10. 4 mg/dL [facility] Chloride [Moles/Vol] 104 mmol/L 98 - 10 7 mmol/L [facility] CO2 [Moles/Vol] 25 mmol/L 22 - 30 mmol/L [facility] Creatinine [Mass/Vol] 1.49 mg/dL High 0.66 - 1.25 mg/dL [facility] GFR/1.73 sq M.predicted MDRD (S/P/Bld) [Vol rate/Area] 50.8 mL/min/{1.73_m2} Low - PINF [facility] Glucose [Mass/Vol] 140 mg/dL High 70 - 100 mg/dL [facility] Potassium [Moles/Vol] 4.5 mmol/L 3.5 - 5.1 mmol/L [facility] Sodium [Moles/Vol] 137 mmol/L 135 - 145 mmol/L [facility] Urea nitrogen [Mass/Vol] 22 mg/dL High 9 - 20 mg/dL [facility] CALCIUM, IONIZEDon 3 CALCIUM IONIZED 4.50 mg/dL Normal 4.30-5.20 [facility] Comment on above: Order Comment: Obtai n PRN and check ionized Ca level if serum Ca level less than 8.0 Performed By: #### L AB54 ####Assistant Chief Nursing Officer: MEME MA ([id number])[facility] ([facility])[address] [place] [address] PH, IONIZED CALCIUM 7.37 Normal 7.31-7.46 [facility] Comment on above: Order Comment: Obtai n PRN and check ionized Ca level if serum Ca level less than 8.0 Performed By: #### L AB54 ####Assistant Chief Nursing Officer: MEME MA ([id number])[facility])[address] [place] [address] CBC (HEMOGRAM)on 10-05-2023 Erythrocyte distribution width (RBC) [Ratio] 14.4 % Normal 11.5-14.5 [facility] Comment on above: Performed By: #### L [id number] #### Assistant Chief Nursing Officer: MEME MA ([id number]) [facility]) [address] [place] [address] ERYTHROCYTE MEAN CORPUSCULAR HEMOGLOBIN CONCENTRATION (G/DL) BY AUTOMATED 34.1 % Normal 32.0-36.0 [facility] Comment on above: Performed By: #### L [id number] #### Assistant Chief Nursing Officer: MEME MA ([id number]) [facility] ([facility]) [address] [place] [address] Hematocrit (Bld) [Volume fraction] 27.9 % Low 40.0-52.0 [facility] Comment on above: Performed By: #### L [id number] #### Assistant Chief Nursing Officer: MMEE MA ([id number]) [facility]) [address] [place] [address] Hemoglobin (Bld) [Mass/Vol] 9.5 g/dL Low 13.0-18.0 [facility] Comment on above: Performed By: #### L [id number] #### Assistant Chief Nursing Officer: MEME MA ([id number]) [facility] ([facility]) [address] [place] [address] MCH (RBC) [Entitic mass] 31.4 pg Normal 26.0-34.0 [facility] Comment on above: Performed By: #### L [id number] #### Assistant Chief Nursing Officer: MEME MA ([id number]) [facility]) [address] [place] [address] MCV (RBC) [Entitic vol] 91.8 fL Normal 80.0-98.0 [facility] Comment on above: Performed By: #### L [id number] #### Assistant Chief Nursing Officer: MEME MA ([id number]) [facility] ([facility]) [address] [place] [address] Platelet mean volume (Bld) [Entitic vol] 8.3 fL Normal 7.4-12.4 [facility] Comment on above: Performed By: #### L [id number] #### Assistant Chief Nursing Officer: MEME MA ([id number]) [facility] ([facility]) [address] [place] [address] Platelets (Bld) [#/Vol] 96 10*3/uL Low 140-440 [facility] Comment on above: Performed By: #### L [id number] #### Assistant Chief Nursing Officer: MEME MA ([id number]) [facility] ([facility]) [address] [place] [address] RBC (Bld) [#/Vol] 3.04 10*6/uL Low 4.40-5.90 [facility] Comment on above: Performed By: #### L [id number] #### Assistant Chief Nursing Officer: MEME MA ([id number]) [facility] ([facility]) [address] [place] [address] WBC (Bld) [#/Vol] 6.8 10*3/uL Normal 3.6-10.7 [facility] Comment on above: Performed By: #### L [id number] #### Assistant Chief Nursing Officer: MEME MA ([id number]) [facility] ([facility]) [address] [place] [address] CBC panel Auto (Bld)on 10-05 Erythrocyte distribution width (RBC) [Ratio] 14.4 % 11.5 - 14.5 % [facility] Hematocrit (Bld) [Volume fraction] 27.9 % Low 40.0 - 52.0 % [facility] Hemoglobin (Bld) [Mass/Vol] 9.5 g/dL Low 13.0 - 18.0 g/dL [facility] Interpretation and review of laboratory results Abnormal [facility] MCH (RBC) [Entitic mass] 31.4 pg 26. 0 - 34.0 pg [facility] MCHC (RBC) [Mass/Vol] 34.1 % 32.0 - 36.0 % [facility] MCV (RBC) [Entitic vol] 91.8 fL 80.0 - 98.0 fL [facility] Platelet mean volume (Bld) [Entitic vol] 8.3 fL 7.4 - 12.4 fL [facility] Platelets (Bld) [#/Vol] 96 10*3/uL Low 140 - 440 10*3/uL [facility] RBC (Bld) [#/Vol] 3.04 10*6/uL Low 4.40 - 5.9 0 10*6/uL [facility] WBC (Bld) [#/Vol] 6.8 10*3/uL 3.6 - 10.7 10*3/uL [facility] Calcium.ionized [Moles/Vol]o n 10-05-2023 Calcium.ionized (Bld) [Moles/Vol] 4.50 mg/dL 4.30 - 5.20 mg/dL [facility] Interpretation and review of laboratory results Normal [facility] PH, IONIZED CALCIUM 7.37 7.31 - 7.46 [facility] MAGNESIUMon 10-05-2023 Magnesium [Mass/Vol] 2.4 mg/dL High 1.6-2.3 [facility] Comment on above: Performed By: #### L [id number], [id number] ####Assistant Chief Nursing Officer: MEME MA ([id number])[facility] ([address] Magnesiumon 10-05-2023 Magnesium [Mass/Vol] 2.4 mg/dL High 1.6 - 2 .3 mg/dL [facility] No Panel Informationon 10-05 Interpretation and review of laboratory results Abnormal [facility] POCT glucose meteron 023 Glucose [Mass/Vol] 154 mg/dL High 70 - 100 mg/dL [facility] Interpretation and review of laboratory results Abnormal [facility] Glucose [Mass/Vol] 144 mg/dL High 70 - 100 mg/dL [facility] Interpretation and review of laboratory results Abnormal [facility] Progress Noteon 10-05-2023 Progress Note Cardiothoracic Surge ry Note PATIENT NAME: Jadon Reyes : 1955 (67 y.o.) TODAY'S DATE: 10/05/2023 Objective: BP 116/72 Pulse 64 Temp 36.3 ?C (97.4 ?F) (Temporal) Resp 18 Ht 6' (1.829 m) Wt 218 lb 14.7 oz (99.3 kg) SpO2 99% BMI 29.69 kg/m? Chest tubes assessed: no air leak, subcutaneous air noted. Chest tubes removed without difficulty and dressing applied. Patient tolerated well. Patient and nurse educated on possible complications to observe for. Will continue to monitor. Normal [facility] Progress Note PHYSICAL THERAPY [facility] Note Name/MRN: Jadon Reyes ([id number]) Date of : 1955 Age: 67 y.o. Room/Bed: T1-110/T1-110 A Discharge Recommendation: Inpatient Rehab and Continue to assess pending progress Equipment Needed: TBD at next level of care Prior Level of Function ADL Assistance: Independent Ambulation Assistance: Independent Transfer Assistance: Independent Assessment Pt making slow steady progress. Min assist for transfer and gait. Weakness and decrease endurance continue to limit pt. Cues for sternal precautions. Educated pt on P&C exercises. Rec rehab upon discharge but could progress to home with assist. Subjective Pt reclined in chair, agreeable to PT. Pain: 0-10 pain scale: 3/10 Location: incision Medical Precautions: No active isolations Proper PPE donned/doffed in accordance with facility standards. Fall Risk: Kahn Fall Risk Score: 50 (High Risk) Precautions/Restrictio ns: Sternal Precautions: Lifting restriction of no more than 10 lbs, undated movement restrictions to keep your move in the tube. Lines/Drains/Airways: Inducer, chest tube, PIV, Overall Cognitive Status: WNL Overall Orientation Status: Oriented x4 Family/Caregiver Present: none Objective Ambulation Ambulation 1 Assistive device(s) used: rollator Assist level: Min Assist Distance (ft): 75ft x 2 Quality of gait: uneven step length, slow mikey, double stance time, SOBOE Transfers/Mobility Sit to stand: Min Assist Stand to sit: Min Assist X1 from chair. Cues for sternal precautions. Device(s) used: rollator Exercises Exercises Upper Extremity: P&C ex #1-9 all x 10 reps each Other exercises Other exercises?: Yes Other exercises 1: I.S. x 10 reps, 500-750mL Balance: standing with rollator, wide ADALID, mild AP sway, min assist for balance. Plan Continue acute PT per plan of care. Safety/Education Safety Safety Devices in place: call light within reach, left in chair, and no alarms engaged upon entry Restraints: No Education Education Given To: patient Education Provided: PT Goals, Gait Training, Home Exercise Program, Precautions, Transfer Training, Breathing Techniques, and I.S. P&C exercises Education Method: Verbal Barriers to Learning: None Education Outcome: Verbalized Understanding Outcome Measures AM-PAC AM-PAC Inpatient Mobility Raw Score (No Stairs) : 15 JH-HLM -HLM Score: Walked 25 ft or more (i.e. walked outside of room) Goals Patient Stated Goal: To return home with Encounter Problems Encounter Problems (Active) Cardiac Patient will perform bed mobility with independence in order to improve independence and prepare for out of bed mobility. (Not Addressed) Start: 10/04/23 Expected End: 10/18/23 Patient will complete sit to stand transfer with modified independence to least restrictive device in order to improve safety and prepare for out of bed mobility. (Progressing) Start: 10/04/23 Expected End: 10/18/23 Patient will ambulate 200 feet or ambulate 5 minutes with modified independence with RPE of 14 or lower. (Progressing) Start: 10/04/23 Expected End: 10/18/23 Patient will ascend and descend 1 stairs with modified independence rail for balance only. (Not Addressed) Start: 10/04/23 Expected End: 10/18/23 Patient will be independent with P&C exercises. (Progressing) Start: 10/04/23 Expected End: 10/18/23 Patient will be independent with managing secretions and home walking program. (Progressing) Start: 10/04/23 Expected End: 10/18/23 Pain - Adult Therapy Time Individual Co-treatment Time In 1115 Time Out 1138 Minutes 23 Timed Code Treatment Minutes: 23 Minutes (gait; tp) Tila Holguin PTA [facility] Progress Note -- Attestation signed by Hanna Díaz MD at 10/05/2023 4:29 PM I performed a history and physical examination of the patient. I have reviewed the patient's chart including pertinent history, medications, labs, radiology, and other reports. I reviewed the resident/ANIBAL's note, agree with the documented findings and plan of care (with modifications noted if any), and discussed the management plan. I have performed a substantive portion of the the medical decision making. Pt eating a little more. Had fruit and juice this AM. No lunch yet. Drinking Ensure. BG stable. Ambulating. Chest tubes removed. No SOB. BP 116/72 Pulse 64 Temp 36.3 ?C (97.4 ?F) (Temporal) Resp 18 Ht 6' (1.829 m) Wt 218 lb 14.7 oz (99.3 kg) SpO2 99% BMI 29.69 kg/m? Awake, not in distress, RRR, chest incision intact, abdomen soft, non-tender, no edema. Dx: Stress hyperglycemia. CAD s/p CABG. Plan: - discontinue SS insulin - no need for regular glucose monitoring - discussed importance of healthy lifestyle - will sign off Total time 20 minutes which include review of records, counseling, management, and coordination of care as documented in note. Department of Internal Medicine Division of Endocrinology, Diabetes, & Metabolism Endocrinology Note Patient Name: Jadon Reyes : 1955 AGE: 67 y.o. Room/Bed: T1-110/T1-110 A Admission Date: 09/29/2023 Visit Date: 10/05/2023 Reason for Endocrine Consult: post op CABG Provider/Team Requesting Consult: [facility] PCP: JUAN SOUSA MD Outpt Assistant Hall Director: N/A ASSESSMENT: S/P CABG x 3 10/03/2023 Stress induced hyperglycemia HTN/HLD smoker PLAN: Patient's blood sugars have been stable and <145 mg/dL over the last 24 hours without requiring any insulin administration. We will sign off at this time. If the patient develops consistently elevated blood sugars on their morning basic metabolic panel, >150 mg/dL for 2 consecutive days, please contact our inpatient consultation team for reevaluation. 4 carb choice diet ICU goal <180 GMF goal <150 POCT BG ACHS Hypoglycemia per protocol Carb controlled diet when advanced ANTICIPATED ENDOCRINE HOME GOING RECOMMENDATIONS: Optimized for Discharge from Endocrine standpoint: No Home Going Endocrine Rx Recommendations-- TBD not likely needed Outpt Follow Up-- PCP SUBJECTIVE/HPI: CHIEF COMPLAINT: No chief complaint on file. Patient presented to [facility] after was abnormal. He was transferred to [facility] after C showed multivessal CAD Patient underwent CABG x 3 10/03/23 Per EHR no hx DM or DM medications Lab Results Component Value Date HGBA1C 5.4 09/29/2023 Today- See BGLs below Has not received any sliding scale insulin since drip discontinued 10/04 at 1400 Has only eaten small bites. Was able to walk in halls this am with nursing C/O pain to insional site - tolerable Glucose Date/Time Value Ref Range Status 10/04/2023 05:57 PM 121 (H) 70 - 100 mg/dL Final 10/04/2023 03:04 PM 131 (H) 70 - 100 mg/dL Final 10/04/2023 02:08 PM 125 (H) 70 - 100 mg/dL Final 10/04/2023 01:02 PM 126 (H) 70 - 100 mg/dL Final 10/04/2023 12:07 PM 120 (H) 70 - 100 mg/dL Final 10/04/2023 10:55 AM 121 (H) 70 - 100 mg/dL Final Review of Systems All other systems reviewed and are negative. ROS negative except for those mentioned in HPI. OBJECTIVE: Vitals: 10/05/23 0026 10/05/23 0330 10/05/23 0408 10/05/23 0905 BP: 132/72 116/72 BP Location: Patient Position: Pulse: 78 80 89 Resp: 18 Temp: 36.7 ?C (98.1 ?F) TempSrc: Temporal SpO2: 94% 98% 98% Weight: Height: Physical Exam Vitals reviewed. HENT: Head: Normocephalic. Cardiovascular: Rate and Rhythm: Normal rate and regular rhythm. Pulses: Normal pulses. Pulmonary: Effort: Pulmonary effort is normal. Breath sounds: Normal breath sounds. Abdominal: General: Bowel sounds are normal. Musculoskeletal: General: Normal range of motion. Skin: General: Skin is warm and dry. Comments: Sternal incision clean and dry Left leg wrapped 24 hour intake/output: Intake/Output Summary (Last 24 hours) at 10/05/2023 0911 Last data filed at 10/05/2023 0600 Gross per 24 hour Intake 458 ml Output 1042 ml Net -584 ml Diet: Adult diet Regular; 4 carb choices (60 gm/meal) Medications (as per EMR): HomeMeds: Current Outpatient Medications Medication Instructions aspirin 81 mg, Oral, Daily latanoprost (Xalatan) 0.005 % ophthalmic solution 1 drop, Both Eyes, Nightly losartan-hydroCHLOROth iazide (Hyzaar) 100-12.5 MG tablet 1 tablet, Oral, Daily Scheduled Meds:acetaminophen, 1,000 mg, Oral, q8h aspirin, 324 mg, Oral, Daily atorvastatin, 80 mg, Oral, Daily chlorhexidine, 15 mL, Mouth/Throat, BID heparin, 5,000 Units, SubCUTAneous, B (more content not included)... Normal [facility] Progress Note -- Attestation signed by Carlos Ospina DO at 10/05/2023 7:33 PM I have personally performed a [id number] diagnostic evaluation on this patient on date of service 10/05/23 . History, labs, imaging studies, and electronic medical record have been reviewed by me. This note documented by the []feed house supervisor [x]ANIBAL reflects my history, exam, and medical decision making. I have reviewed and agree with the care plan. Changes were made in the orders as necessary. ROS documentation was reviewed and negative unless otherwise stated in HPI. Additional pertinent interval history, ROS, and physical exam findings: No overnight events. Assessment: CABGx3 10/03/23 CAD s/p CABG Tobacco use HTN Stress hyperglycemia Plan: Agree w/ plan as noted in ANIBAL note. Total critical care time for this patient with life-threatening unstable organ failure, including direct patient contact, management of life support systems, review of data including imaging and labs, and discussions with other team members and physicians at least 35min so far today, excluding procedures. Cardiothoracic Surgery/CCM Progress Note PATIENT NAME: Jadon Reyes DATE: 10/05/23 HPI: 67 year old male patient with a known PMHx that includes HTN, HLD, and smoking. He presented to [facility] ED on 09/27/23 after he was called with results of a stress test he underwent. The stress test was completed earlier in the day on 09/27/23 and was positive for reversible ischemia. On admission in ED, his EKG showed T wave inversions in lead III and aVF, troponin negative. He was started on aspirin, heparin and Cardiology consulted. He had a cardiac catheterization on 09/28/23 which revealed multivessel CAD. He was transferred to [facility] for CABG consideration, consented to surgical revascularization. Surgery/Procedure: 10/03/23: CABG x3 (SCHWAB-LAD, SVG-PDA, SVG-PL), LLE EVH Interval History: 10/05/23, POD# 02. Afebrile, NSR on tele, BP stable on 2L NC. Pain present. Was able to walk on unit with nursing yesterday. No acute events overnight. No BM yet but passing gas. Denies abdominal pain or nausea. Review of Systems Constitutional: Positive for fatigue. Negative for chills, diaphoresis and fever. Respiratory: Negative for cough, shortness of breath and wheezing. Cardiovascular: Negative for chest pain, palpitations and leg swelling. Gastrointestinal: Negative for abdominal distention, abdominal pain, nausea and vomiting. Neurological: Negative for dizziness, syncope and light-headedness. Objective: CT output cc/24hrs: 210 UO cc/24hrs: 1,002 Vitals: BP: 132/72, MAP (mmHg): 88, BP Method: Automatic Heart Rate: 80 Resp: 18 Temp: 36.7 ?C (98.1 ?F), Temp Source: Temporal BMI (Calculated): 29.68 BMP: Recent Labs 10/03/23 1127 10/03/23 1313 10/03/23 17310/04/23 0005 10/05/23 0023 NA 144 142 142 139 137 K 3.8 4.4 4.9 4.9 4.5 CL 112* 110* 108* 108* 104 CO2 21* 23 23 21* 25 BUN 21* 20 20 22* 22* CREATININE 1.33* 1.27* 1.41* 1.46* 1.49* CALCIUM 8.3* 8.2* 8.1* 8.2* 8.6 MG 4.0* 3.2* -- 2.6* 2.4* PHOS 3.3 -- -- -- -- CBC: Recent Labs 10/03/23 1313 10/03/23 17310/04/23 0005 10/05/23 0023 WBC 9.6 -- 7.0 6.8 HGB 11.5* 10.9 10.2* 9.5* HCT 34.1* -- 29.5* 27.9* PLT 112* -- 114* 96* MCV 91.4 -- 90.4 91.8 RDW 14.2 -- 14.2 14.4 INR: Recent Labs 10/03/23 1127 10/03/23 1313 10/04/23 0006 INR 1.3* 1.2* 1.1 Physical Exam Vitals reviewed. Constitutional: General: He is not in acute distress. Appearance: He is not ill-appearing or diaphoretic. Neck: Comments: Central line in place. Cardiovascular: Rate and Rhythm: Normal rate and regular rhythm. Pulses: Normal pulses. Heart sounds: No murmur heard. Pulmonary: Effort: Pulmonary effort is normal. Breath sounds: No wheezing, rhonchi or rales. Comments: Diminished throughout, shallow breaths. Abdominal: General: There is no distension. Palpations: Abdomen is soft. Tenderness: There is no abdominal tenderness. Comments: Chest tubes in place. Genitourinary: Comments: Forde. Musculoskeletal: General: No swelling. Skin: General: Skin is warm and dry. Capillary Refill: Capillary refill takes less than 2 seconds. Findings: Bruising present. Comments: MSI well approximated. No redness, warmth or drainage noted. Neurological: General: No focal deficit present. Mental Status: He is alert and oriented to person, place, and time. Psychiatric: Mood and Affect: Mood normal. Behavior: Behavior normal. Thought Content: Thought content normal. Judgment: Judgment normal. Assessment: Multivessel CAD s/p CABG HTN HLD Tobacco abuse, quit 2 weeks ago Post operative Pulm Managemen (more content not included)... Normal [facility] Progress Note ENDOCRINOLOGY ATTESTATION NOTE: Please see note from Jade Ceballos. I performed a history and physical examination of the patient. I have reviewed the patient's chart including pertinent history, medications, labs, radiology, and other reports. I reviewed the resident/ANIBAL's note, agree with the documented findings and plan of care (with modifications noted if any), and discussed the management plan. I have performed a substantive portion of the the medical decision making. Pt not eating. Poor appetite. Has been drinking Ensure. No n/v. No SOB. Ambulating. BG stable. Minimal insulin requirements from drip. BP 136/72 Pulse 83 Temp 36.8 ?C (98.3 ?F) Resp 18 Ht 6' (1.829 m) Wt 218 lb 14.7 oz (99.3 kg) SpO2 98% BMI 29.69 kg/m? Awake, not in distress, RRR, chest incision intact, clear breath sounds, +chest tubes, abdomen soft, non-tender, no edema. Dx: Stress hyperglycemia. CAD s/p CABG. Plan: - will transition to subcutaneous insulin with Humalog SS - continue blood glucose monitoring - discussed postop hyperglycemia management and goals of therapy - patient will unlikely require any pharmacotherapy on discharge for hyperglycemia - encouraged adequate nutrition - will follow Total time 20 minutes which include review of records, counseling, management, and coordination of care as documented in note. Normal [facility] XR CHEST 1 VIEWon 10-05-2023 XR CHEST 1 VIEW Patient Name: JADON REYES : 1955 Exam Date/Time: 10/05/2023 05:28 Procedure: XR CHEST 1 VIEW Ordering Provider: WARREN JENNIFER Reason For Exam: Shortness of breath INDICATION: Inpatient. 67-year-old. Shortness of breath. VIEWS: Chest portable-1 image COMPARISON: 10/04/2023 at 5:19 TIME: 10/05/2023 at 5:26 FINDINGS: A right IJ vascular sheath is present. A mediastinal drain and bilateral chest tubes remain. Median sternotomy wires and clips are present. The trachea is midline. The cardiac silhouette is enlarged. The lung volumes are low. There is no sizable pneumothorax. Bibasilar opacities are present. Air-filled loop of ascending/transverse colon, mildly distended in the right upper quadrant. IMPRESSION: 1. Cardiomegaly. 2. Low lung volumes with bibasilar opacities likely reflecting atelectasis and/or infiltrate, left greater than right. 3. Support devices, as above. 4. No significant one-day change. Report Dictated on Electronically Signed By: Jacquelin Mckinney MD Electronically Signed Date/Time: 10/05/2023 5:35 AM EST Normal [facility] XR Chest Single viewon 10-05 [facility] Radiology Study observation (narrative) [facility] XR Chest Single viewOrdered By: Jacquelin Mckinney on 10-05-2023 [facility] [place] Work Phone: BASIC METABOLIC PANELon 11-0 Anion gap [Moles/Vol] 10 mmol/L Normal 3-13 [facility] Comment on above: Performed By: #### L AB15, [id number] ####Assistant Chief Nursing Officer: MEME MA ([phone])[facility] [place] [address] Calcium [Mass/Vol] 8.2 mg/dL Low 8.4-10.4 [facility] Comment on above: Performed By: #### L AB15, [id number] ####Assistant Chief Nursing Officer: MEME MA ([id number])[facility] [place] [address] Chloride [Moles/Vol] 108 mmol/L High 98-107 [facility] Comment on above: Performed By: #### L AB15, [id number] ####Assistant Chief Nursing Officer: MEME MA ([id number])[facility] [place] [address] CO2 [Moles/Vol] 21 mmol/L Low 22-30 [facility] Comment on above: Performed By: #### L AB15, [id number] ####Assistant Chief Nursing Officer: MEME MA ([id number])[facility] ([facility])[address] [place] [address] Creatinine [Mass/Vol] 1.46 mg/dL High 0.66-1.25 [facility] Comment on above: Performed By: #### L AB15, [id number] ####Assistant Chief Nursing Officer: MEME MA ([phone])[facility] ([facility])[address] [place] [address] [place] GLOMERULAR FILTRATION RATE ML/MIN/1.73 SQ M.PREDICTED 52.1 mL/min/1.73m*2 Low >60.0 [facility] Comment on above: Result Comment: Calc ulation based on the Chronic Kidney Disease Epidemiology Collaboration (CKD-EPI) equation refit without adjustment for race Performed By: #### L AB15, [id number] ####Assistant Chief Nursing Officer: MEME MA ([id number])[facility] ([facility])[address] [place] [address] Glucose [Mass/Vol] 130 mg/dL High 70-100 [facility] Comment on above: Performed By: #### L AB15, [id number] ####Assistant Chief Nursing Officer: MEME MA ([id number])[facility] ([facility])[address] [place] [address] Potassium [Moles/Vol] 4.9 mmol/L Normal 3.5-5.1 [facility] Comment on above: Performed By: #### L AB15, [id number] ####Assistant Chief Nursing Officer: MEME MA ([phone])[facility] ([facility])[address] [place] [address] Sodium [Moles/Vol] 139 mmol/L Normal 135-145 [facility] Comment on above: Performed By: #### L AB15, [id number] ####Assistant Chief Nursing Officer: MEME MA ([id number])[facility] ([facility])[address] [place] [address] Urea nitrogen [Mass/Vol] 22 mg/dL High 9-20 [facility] Comment on above: Performed By: #### L AB15, [id number] ####Assistant Chief Nursing Officer: MEME MA ([phone])[facility] ([facility])[address] [place] [address] Basic metabolic 1998 panelon 10-04-2023 Anion gap [Moles/Vol] 10 mmol/L 3 - 13 mmol/L [facility] Calcium [Mass/Vol] 8.2 mg/dL Low 8.4 - 10. 4 mg/dL [facility] Chloride [Moles/Vol] 108 mmol/L High 98 - 10 7 mmol/L [facility] CO2 [Moles/Vol] 21 mmol/L Low 22 - 30 mmol/L [facility] Creatinine [Mass/Vol] 1.46 mg/dL High 0.66 - 1.25 mg/dL [facility] GFR/1.73 sq M.predicted MDRD (S/P/Bld) [Vol rate/Area] 52.1 mL/min/{1.73_m2} Low - PINF [facility] Glucose [Mass/Vol] 130 mg/dL High 70 - 100 mg/dL [facility] Potassium [Moles/Vol] 4.9 mmol/L 3.5 - 5.1 mmol/L [facility] Sodium [Moles/Vol] 139 mmol/L 135 - 145 mmol/L [facility] Urea nitrogen [Mass/Vol] 22 mg/dL High 9 - 20 mg/dL [facility] CALCIUM, IONIZEDon CALCIUM IONIZED 3.90 mg/dL Low 4.30-5.20 [facility] Comment on above: Order Comment: Obtai n PRN and check ionized Ca level if serum Ca level less than 8.0 Performed By: #### L [id number] ####Assistant Chief Nursing Officer: MEME MA ([id number])[address] PH, IONIZED CALCIUM 7.43 Normal 7.31-7.46 [facility] Comment on above: Order Comment: Obtai n PRN and check ionized Ca level if serum Ca level less than 8.0 Performed By: #### L AB54 ####Assistant Chief Nursing Officer: MEME MA ([phone])[facility])[address] [place] [address] CBC (HEMOGRAM)on 10-04-2023 Erythrocyte distribution width (RBC) [Ratio] 14.2 % Normal 11.5-14.5 [facility] Comment on above: Performed By: #### L [id number] ####Assistant Chief Nursing Officer: MEME MA ([phone])[address] ERYTHROCYTE MEAN CORPUSCULAR HEMOGLOBIN CONCENTRATION (G/DL) BY AUTOMATED 34.6 % Normal 32.0-36.0 [facility] Comment on above: Performed By: #### L [id number] ####Assistant Chief Nursing Officer: MEME MA ([id number])[facility])[address] [place] [address] Hematocrit (Bld) [Volume fraction] 29.5 % Low 40.0-52.0 [facility] Comment on above: Performed By: #### L [id number] ####Assistant Chief Nursing Officer: MEME MA ([phone])[facility])[address] [place] [address] Hemoglobin (Bld) [Mass/Vol] 10.2 g/dL Low 13.0-18.0 [facility] Comment on above: Performed By: #### L [id number] ####Assistant Chief Nursing Officer: MEME MA ([id number])[facility] ([facility])[address] [place] [address] MCH (RBC) [Entitic mass] 31.3 pg Normal 26.0-34.0 [facility] Comment on above: Performed By: #### L [id number] ####Assistant Chief Nursing Officer: MEME MA ([id number])[facility])[address] [place] [address] MCV (RBC) [Entitic vol] 90.4 fL Normal 80.0-98.0 [facility] Comment on above: Performed By: #### L [id number] ####Assistant Chief Nursing Officer: MEME MA ([id number])[facility] ([facility])[address] [place] [address] Platelet mean volume (Bld) [Entitic vol] 8.4 fL Normal 7.4-12.4 [facility] Comment on above: Performed By: #### L [id number] ####Assistant Chief Nursing Officer: MEME MA ([id number])[facility])[address] [place] [address] [place] Platelets (Bld) [#/Vol] 114 10*3/uL Low 140-440 [facility] Comment on above: Performed By: #### L [id number] ####Assistant Chief Nursing Officer: MEME MA ([id number])[facility])[address] [place] [address] RBC (Bld) [#/Vol] 3.26 10*6/uL Low 4.40-5.90 [facility] Comment on above: Performed By: #### L [id number] ####Assistant Chief Nursing Officer: MEME MA ([id number])[facility] ([facility])[address] [place] [address] WBC (Bld) [#/Vol] 7.0 10*3/uL Normal 3.6-10.7 [facility] Comment on above: Performed By: #### L [id number] ####Assistant Chief Nursing Officer: MEME MA ([id number])[facility] [place] [address] CBC panel Auto (Bld)on 10-04 Erythrocyte distribution width (RBC) [Ratio] 14.2 % 11.5 - 14.5 % [facility] Hematocrit (Bld) [Volume fraction] 29.5 % Low 40.0 - 52.0 % [facility] Hemoglobin (Bld) [Mass/Vol] 10.2 g/dL Low 13.0 - 18.0 g/dL [facility] Interpretation and review of laboratory results Abnormal [facility] MCH (RBC) [Entitic mass] 31.3 pg 26. 0 - 34.0 pg [facility] MCHC (RBC) [Mass/Vol] 34.6 % 32.0 - 36.0 % [facility] MCV (RBC) [Entitic vol] 90.4 fL 80.0 - 98.0 fL [facility] Platelet mean volume (Bld) [Entitic vol] 8.4 fL 7.4 - 12.4 fL [facility] Platelets (Bld) [#/Vol] 114 10*3/uL Low 140 - 440 10*3/uL [facility] RBC (Bld) [#/Vol] 3.26 10*6/uL Low 4.40 - 5.9 0 10*6/uL [facility] WBC (Bld) [#/Vol] 7.0 10*3/uL 3.6 - 10.7 10*3/uL [facility] Calcium.ionized [Moles/Vol]O rdered By: Moon Senior on 10-04-2023 Calcium.ionized (Bld) [Moles/Vol] 3.90 mg/dL Low 4.30 - 5.20 mg/dL [facility] Interpretation and review of laboratory results Abnormal [facility] PH, IONIZED CALCIUM 7.43 7.31 - 7.46 [facility] ECG 12 leadOrdered By: Yamilet Nguyễn on 10-04-2023 Heart rate 70 /min bpm [facility] Work Phone: P [place] 23 degrees [facility] Work Phone: CT Interval 183 ms [facility] Work Phone: QRS [place] 9 degrees [facility] Work Phone: QRSD Interval 99 ms [facility] Work Phone: QT Interval 423 ms [facility] Work Phone: QTC Interval 457 ms [facility] Work Phone: T Wave [place] -45 degrees [facility] Work Phone: [facility] Work Phone: ECG 12 leadon 10-04-2023 CV EPIPHANY [facility] [place] Heart rate 82 /min bpm [facility] [place] P [place] 30 degrees [facility] [place] CT Interval 183 ms [facility] [place] QRS [place] -19 degrees [facility] [place] QRSD Interval 90 ms [facility] QT Interval 375 ms [facility] [place] QTC Interval 438 ms [facility] [place] T Wave [place] -31 degrees [facility] [place] CV EPIPHANY [facility] [place] [facility] [place] ECG 12-LEADon 10-04-2023 ECG 12-LEAD IMPRESSION: Sinus rhythm Inferior infarct, age indeterminate Electronically Signed On 10-04-2023 12:12:32 EST by [facility] ECG 12-LEAD IMPRESSION: Sinus rhythm Probable left atrial enlargement Left ventricular hypertrophy Inferior infarct, old Electronically Signed On 10-04-2023 10:40:16 EST by [facility] MAGNESIUMon 10-04-2023 Magnesium [Mass/Vol] 2.6 mg/dL High 1.6-2.3 [facility] Comment on above: Performed By: #### L [id number], [id number] ####Assistant Chief Nursing Officer: MEME MA ([id number])[facility] ([address] Magnesiumon 10-04-2023 Magnesium [Mass/Vol] 2.6 mg/dL High 1.6 - 2 .3 mg/dL [facility] No Panel Informationon 10-04 Interpretation and review of laboratory results Abnormal [facility] POCT glucose meteron 023 Glucose [Mass/Vol] 121 mg/dL High 70 - 100 mg/dL [facility] Interpretation and review of laboratory results Abnormal [facility] Glucose [Mass/Vol] 131 mg/dL High 70 - 100 mg/dL [facility] Interpretation and review of laboratory results Abnormal [facility] Glucose [Mass/Vol] 125 mg/dL High 70 - 100 mg/dL [facility] Interpretation and review of laboratory results Abnormal [facility] Glucose [Mass/Vol] 126 mg/dL High 70 - 100 mg/dL [facility] Interpretation and review of laboratory results Abnormal [facility] Glucose [Mass/Vol] 120 mg/dL High 70 - 100 mg/dL [facility] Interpretation and review of laboratory results Abnormal [facility] Glucose [Mass/Vol] 121 mg/dL High 70 - 100 mg/dL [facility] Interpretation and review of laboratory results Abnormal [facility] Glucose [Mass/Vol] 114 mg/dL High 70 - 100 mg/dL [facility] Interpretation and review of laboratory results Abnormal [facility] Glucose [Mass/Vol] 120 mg/dL High 70 - 100 mg/dL [facility] Interpretation and review of laboratory results Abnormal [facility] Glucose [Mass/Vol] 120 mg/dL High 70 - 100 mg/dL [facility] Interpretation and review of laboratory results Abnormal [facility] Glucose [Mass/Vol] 134 mg/dL High 70 - 100 mg/dL [facility] Interpretation and review of laboratory results Abnormal [facility] Glucose [Mass/Vol] 131 mg/dL High 70 - 100 mg/dL [facility] Interpretation and review of laboratory results Abnormal [facility] Glucose [Mass/Vol] 138 mg/dL High 70 - 100 mg/dL [facility] Interpretation and review of laboratory results Abnormal [facility] Glucose [Mass/Vol] 144 mg/dL High 70 - 100 mg/dL [facility] Interpretation and review of laboratory results Abnormal [facility] Glucose [Mass/Vol] 135 mg/dL High 70 - 100 mg/dL [facility] Interpretation and review of laboratory results Abnormal [facility] PROTIME AND APTTon 3 aPTT Coag (Bld) [Time] 31.3 s High 20.0-30.5 [facility] Comment on above: Performed By: #### L [id number] #### Assistant Chief Nursing Officer: MEME MA ([id number]) [facility]) [address] [place] [address] INR Coag (PPP) [Relative time] 1.1 {INR} Normal 0.9-1.1 [facility] Comment on above: Result Comment: Hector mmended Anticoagulant Therapy: SEE BELOW ----- INR of 2.0 - 3.0 : - Prophylaxis of Venous Thrombosis (high-risk surgery) - Treatment of Venous Thrombosis - Treatment of Pulmonary Embolism (Includes tissue heart valves, Acute Myocardial Infarction to prevent systemic embolism, Valvular Heart Disease, and Atrial Fibrillation) ----- INR of 2.5 - 3.5 : - Mechanical Prosthetic Valves (high risk) - If oral anticoagulant therapy is used to prevent Myocardial Infarction Performed By: #### L [id number] #### Assistant Chief Nursing Officer: MEME MA ([id number]) [facility]) [address] [place] [address] PT Coag (PPP) [Time] 11.6 s Normal 9.0-12.0 [facility] Comment on above: Performed By: #### L [id number] #### Assistant Chief Nursing Officer: MEME MA ([id number]) [facility] ([facility]) [address] [place] [address] PROTIME/INR & PTTon 10-04-20 23 aPTT Coag (PPP) [Time] 31.3 s High 20.0 - 30.5 s [facility] INR Coag (PPP) [Relative time] 1.1 {INR} 0.9 - 1.1 [facility] Interpretation and review of laboratory results Abnormal [facility] PT Coag (Bld) [Time] 11.6 s 9.0 - 1 2.0 s [facility] Progress Noteon 10-04-2023 Progress Note Department of Operations/Dispatch al Medicine Division of Endocrinology, Diabetes, & Metabolism Endocrinology Note Patient Name: Jadon Reyes : 1955 AGE: 67 y.o. Room/Bed: T1-110/T1-110 A Admission Date: 09/29/2023 Visit Date: 10/04/2023 Reason for Endocrine Consult: post op CABG Provider/Team Requesting Consult: CTS PCP: JUAN SOUSA MD Outpt Assistant Hall Director: N/A ASSESSMENT: S/P CABG x 3 10/03/2023 Stress induced hyperglycemia HTN/HLD smoker PLAN: Discontinue insulin drip Initiate humalog low dose sliding scale ac Meals Change poc glucose checks to ac/hs 4 carb choice diet ICU goal <180 GMF goal <150 POCT BG ACHS Hypoglycemia per protocol Carb controlled diet when advanced ANTICIPATED ENDOCRINE HOME GOING RECOMMENDATIONS: Optimized for Discharge from Endocrine standpoint: No Home Going Endocrine Rx Recommendations-- TBD not likely needed Outpt Follow Up-- PCP SUBJECTIVE/HPI: CHIEF COMPLAINT: No chief complaint on file. Patient presented to [facility] after was abnormal. He was transferred to [facility] after C showed multivessal CAD Patient underwent CABG x 3 10/03/23 Per EHR no hx DM or DM medications Lab Results Component Value Date HGBA1C 5.4 09/29/2023 Today- Has required minimal amount of insulin and doses have been decreasing through out the day Patient is sitting in chair at bedside C/o states that it has not been controlled Has not had any food since surgey Denies nausea, SOB, does have a cough at times Glucose Date/Time Value Ref Range Status 10/04/2023 03:04 PM 131 (H) 70 - 100 mg/dL Final 10/04/2023 02:08 PM 125 (H) 70 - 100 mg/dL Final 10/04/2023 01:02 PM 126 (H) 70 - 100 mg/dL Final 10/04/2023 12:07 PM 120 (H) 70 - 100 mg/dL Final 10/04/2023 10:55 AM 121 (H) 70 - 100 mg/dL Final 10/04/2023 10:04 AM 114 (H) 70 - 100 mg/dL Final Review of Systems Unable to perform ROS: Acuity of condition ROS negative except for those mentioned in HPI. OBJECTIVE: Vitals: 10/04/23 1046 10/04/23 1100 10/04/23 1200 10/04/23 1500 BP: 130/77 116/68 BP Location: Left arm Patient Position: Sitting Pulse: 98 88 89 80 Resp: 18 Temp: 36.8 ?C (98.2 ?F) TempSrc: Oral SpO2: 93% 97% (!) 87% Weight: Height: Physical Exam Vitals reviewed. HENT: Head: Normocephalic. Cardiovascular: Rate and Rhythm: Normal rate and regular rhythm. Pulses: Normal pulses. Pulmonary: Effort: Pulmonary effort is normal. Breath sounds: Normal breath sounds. Abdominal: General: Bowel sounds are normal. Musculoskeletal: General: No swelling. Normal range of motion. Skin: General: Skin is warm and dry. Comments: Sternal incision clean and dry Left leg wrapped Neurological: Comments: Sleepy, recently extubated 24 hour intake/output: Intake/Output Summary (Last 24 hours) at 10/04/2023 1524 Last data filed at 10/04/2023 1300 Gross per 24 hour Intake 2539 ml Output 1402 ml Net 1137 ml Diet: Adult diet Regular Medications (as per EMR): HomeMeds: Current Outpatient Medications Medication Instructions aspirin 81 mg, Oral, Daily latanoprost (Xalatan) 0.005 % ophthalmic solution 1 drop, Both Eyes, Nightly losartan-hydroCHLOROth iazide (Hyzaar) 100-12.5 MG tablet 1 tablet, Oral, Daily Scheduled Meds:acetaminophen, 1,000 mg, Oral, q8h aspirin, 324 mg, Oral, Daily atorvastatin, 80 mg, Oral, Daily ceFAZolin, 2,000 mg, IntraVENous, q8h chlorhexidine, 15 mL, Mouth/Throat, BID heparin, 5,000 Units, SubCUTAneous, BID latanoprost, 1 drop, Both Eyes, Nightly Lidocaine, 1 patch, Topical, Daily metoprolol tartrate, 25 mg, Oral, BID mupirocin, , Nasal, BID pantoprazole, 40 mg, IntraVENous, Daily polyethylene glycol (PEG) 3350, 17 g, Oral, Daily senna-docusate sodium, 2 tablet, Oral, Nightly sodium chloride 0.9%, 10 mL, IntraVENous, 2 times per day Continuous Infusions:insulin regular, 1-50 Units/hr, Last Rate: 0.5 Units/hr (10/04/23 1505) lactated ringers, 250 mL sodium chloride, 20 mL/hr, Last Rate: 20 mL/hr (10/03/23 1300) PRN Meds:PRN medications: albumin human, calcium gluconate, dextrose, dextrose, glucagon (rDNA), glucose, ipratropium-albuterol, lactated ringers, magnesium hydroxide, magnesium sulfate OR magnesium sulfate, morphine sulfate OR morphine sulfate, ondansetron ODT OR ondansetron, oxyCODONE OR oxyCODONE, potassium chloride OR potassium chloride OR potassium chloride, potassium chloride CR, sodium chloride, sodium chloride 0.9% Diagnostic Workup: I reviewed pertinent Laboratory results, Radiographic results, and Other Clinical Notes at the time of today's encounter. Labs: No components found for: LABA1C No components found for: EAG Lab Results Component Value Date NA 139 10/04/2023 K 4.9 10/04/2023 CL 108 (H) 10/04/2023 CO2 21 (L) 10/04/2023 BUN 22 (H) 10/04/2023 CREATININE 1.46 (H) 10/04/2023 GLUCOSE 130 (H) 10/04/2023 CALCIUM 8.2 (L) 11 (more content not included)... Normal [facility] Progress Note -- Attestation signed by Carlos Ospina DO at 10/04/2023 3:02 PM I have personally performed a [id number] diagnostic evaluation on this patient on date of service 10/04/23 . History, labs, imaging studies, and electronic medical record have been reviewed by me. This note documented by the []feed house supervisor [x]ANIBAL reflects my history, exam, and medical decision making. I have reviewed and agree with the care plan. Changes were made in the orders as necessary. ROS documentation was reviewed and negative unless otherwise stated in HPI. Additional pertinent interval history, ROS, and physical exam findings: No overnight events. Off levo. Assessment: CABGx3 10/03/23 CAD s/p CABG Tobacco use HTN Stress hyperglycemia Plan: Cardiac meds per ANIBAL Note. Ambulate and PT/OT. Glucose controlled. Sugar mgmt per Endo. Total care time for this patient including direct patient contact, management of life support systems, review of data including imaging and labs, and discussions with other team members and physicians at least 30min so far today, excluding procedures. Cardiothoracic Surgery/CCM Progress Note PATIENT NAME: Jadon Reyes DATE: 10/04/23 HPI: 67 year old male patient with a known PMHx that includes HTN, HLD, and smoking. He presented to [facility] ED on 09/27/23 after he was called with results of a stress test he underwent. The stress test was completed earlier in the day on 09/27/23 and was positive for reversible ischemia. On admission in ED, his EKG showed T wave inversions in lead III and aVF, troponin negative. He was started on aspirin, heparin and Cardiology consulted. He had a cardiac catheterization on 09/28/23 which revealed multivessel CAD. He was transferred to [facility] for CABG consideration, consented to surgical revascularization. Surgery/Procedure: 10/03/23: CABG x3 (SCHWAB-LAD, SVG-PDA, SVG-PL), LLE EVH Interval History: 10/04/23, POD# 01: Afebrile, NSR on tele, BP stable, extubated post-op, now on RA. Patient sitting up in chair this AM. Pain present, tolerable. Denies nausea and SOB. Received albumin overnight and weaned off of low dose norepinephrine. Current IV Drips: Insulin- 1u/hr A-line: Arterial Line BP 1: 131/53 Invasive Hemodynamic Monitoring Hemodynamic Monitoring Additional Assessment: Yes Blood Temperature: 37.8 ?C (100 ?F) PAP: 44/14 PAP (Mean): 25 mmHg CVP (mmHg): 6 mmHg CO (L/min): 6.22 L/min CI (L/min/m2): 2.89 L/min/m2 SVR (dyne*sec)/cm5: 784 (dyne*sec)/cm5 Review of Systems Constitutional: Positive for fatigue. Negative for chills, diaphoresis and fever. Respiratory: Negative for cough, shortness of breath and wheezing. Cardiovascular: Negative for chest pain, palpitations and leg swelling. Gastrointestinal: Negative for abdominal distention, abdominal pain, nausea and vomiting. Neurological: Negative for dizziness, syncope and light-headedness. Objective: CT output cc/24hrs: 450 UO cc/24hrs: 2,940 Vitals: BP: (!) 146/83, MAP (mmHg): 101, BP Method: Arterial line Heart Rate: 77 Resp: 16 Temp: 37.8 ?C (100 ?F), Temp Source: Core BMI (Calculated): 29.68 BMP: Recent Labs 10/03/23 11210/03/23 13110/03/23173010/04/23 0005 NA 144 142 142 139 K 3.8 4.4 4.9 4.9 CL 112* 110* 108* 108* CO2 21* 23 23 21* BUN 21* 20 20 22* CREATININE 1.33* 1.27* 1.41* 1.46* CALCIUM 8.3* 8.2* 8.1* 8.2* MG 4.0* 3.2* -- 2.6* PHOS 3.3 -- -- -- CBC: Recent Labs 10/03/23 1127 10/03/23 1128 10/03/23 1313 10/03/23173010/04/23 0005 WBC 7.2 -- 9.6 -- 7.0 HGB 9.5* < > 11.5* 10.9 10.2* HCT 28.3* -- 34.1* -- 29.5* PLT 104* -- 112* -- 114* MCV 91.2 -- 91.4 -- 90.4 RDW 14.2 -- 14.2 -- 14.2 < > = values in this interval not displayed. INR: Recent Labs 10/03/23 1127 10/03/23 1313 10/04/23 0006 INR 1.3* 1.2* 1.1 Physical Exam Vitals reviewed. Constitutional: General: He is not in acute distress. Appearance: He is not ill-appearing or diaphoretic. Neck: Comments: Central line in place. Cardiovascular: Rate and Rhythm: Normal rate and regular rhythm. Pulses: Normal pulses. Heart sounds: No murmur heard. Pulmonary: Effort: Pulmonary effort is normal. Breath sounds: No wheezing, rhonchi or rales. Comments: Diminished throughout, shallow breaths. Abdominal: General: There is no distension. Palpations: Abdomen is soft. Tenderness: There is no abdominal tenderness. Comments: Chest tubes in place. Genitourinary: Comments: [place]. Musculoskeletal: General: No swelling. Skin: General: Skin is warm and dry. Capillary Refill: Capillary refill takes less than 2 seconds. Findings: Bruising present. Comments: MSI well approximated. No (more content not included)... Normal [facility] XR CHEST 1 VIEWon 10-04-2023 XR CHEST 1 VIEW Patient Name: JADON REYES : 1955 Exam Date/Time: 10/04/2023 05:20 Procedure: XR CHEST 1 VIEW Ordering Provider: WARREN JENNIFER Reason For Exam: Shortness of breath Examination: Portable chest Indication: Shortness of breath Comparison: Previous day Findings: Cardiac silhouette is enlarged. Suspect retrocardiac infiltrate or atelectasis on the left. [place] catheter is in similar position. There does appear to be a mediastinal and left-sided chest tube present. No sizable pneumothorax noted. IMPRESSION: Impression: As above. Report Dictated on Electronically Signed By: Burton Jean MD Electronically Signed Date/Time: 10/04/2023 7:31 AM EST Normal [facility] XR Chest Single viewon 10-04 [facility] Radiology Study observation (narrative) [facility] XR Chest Single viewOrdered By: Burton Jean on 10-04-2023 [facility] Work Phone: ABO and Rh group Confirm Nom (Bld)on 10-03-2023 ABO group Nom (Bld) O [facility] D Ag Ql (RBC) Positive [facility] BASIC METABOLIC PANELon 11 Anion gap [Moles/Vol] 10 mmol/L Normal 3-13 [facility] Comment on above: Performed By: #### L AB15, [id number] ####Assistant Chief Nursing Officer: MEME MA ([phone])[facility] ([facility])[address] [place] [address] Calcium [Mass/Vol] 8.2 mg/dL Low 8.4-10.4 [facility] Comment on above: Performed By: #### L AB15, [id number] ####Assistant Chief Nursing Officer: MEME MA ([phone])[facility] [place] [address] [place] Chloride [Moles/Vol] 110 mmol/L High 98-107 [facility] Comment on above: Performed By: #### L AB15, [id number] ####Assistant Chief Nursing Officer: MEME MA ([id number])[facility] ([facility])[address] [place] [address] [place] CO2 [Moles/Vol] 23 mmol/L Normal 22-30 [facility] Comment on above: Performed By: #### L AB15, [id number] ####Assistant Chief Nursing Officer: MEME MA ([phone])[facility] ([facility])[address] [place] [address] [place] Creatinine [Mass/Vol] 1.27 mg/dL High 0.66-1.25 [facility] Comment on above: Performed By: #### L AB15, [id number] ####Assistant Chief Nursing Officer: MEME MA ([phone])[facility] ([facility])[address] [place] [address] [place] GLOMERULAR FILTRATION RATE ML/MIN/1.73 SQ M.PREDICTED 61.5 mL/min/1.73m*2 Normal >60.0 [facility] Comment on above: Result Comment: Calc ulation based on the Chronic Kidney Disease Epidemiology Collaboration (CKD-EPI) equation refit without adjustment for race Performed By: #### L AB15, [id number] ####Assistant Chief Nursing Officer: MEME MA ([phone])[facility])[address] [place] [address] Glucose [Mass/Vol] 116 mg/dL High 70-100 [facility] Comment on above: Performed By: #### L AB15, [id number] ####Assistant Chief Nursing Officer: MEME MA ([phone])[facility])[address] [place] [address] Potassium [Moles/Vol] 4.4 mmol/L Normal 3.5-5.1 [facility] Comment on above: Performed By: #### L AB15, [id number] ####Assistant Chief Nursing Officer: MEME MA ([phone])[facility] ([facility])[address] [place] [address] [place] Sodium [Moles/Vol] 142 mmol/L Normal 135-145 [facility] Comment on above: Performed By: #### L AB15, [id number] ####Assistant Chief Nursing Officer: MEME MA ([phone])[facility] ([facility])[address] [place] [address] [place] Urea nitrogen [Mass/Vol] 20 mg/dL Normal 9-20 [facility] Comment on above: Performed By: #### L AB15, [id number] ####Assistant Chief Nursing Officer: MEME MA ([phone])[facility])[address] [place] [address] [place] Anion gap [Moles/Vol] 11 mmol/L Normal 3-13 [facility] Comment on above: Performed By: #### L AB15, [id number], [id number] #### Assistant Chief Nursing Officer: MEME MA ([phone]) [facility]) [address] [place] [address] Calcium [Mass/Vol] 8.3 mg/dL Low 8.4-10.4 [facility] Comment on above: Performed By: #### Eugenia AB15, [id number], [id number] #### Assistant Chief Nursing Officer: MEME MA ([phone]) [facility] ([facility]) [address] [place] [address] Chloride [Moles/Vol] 112 mmol/L High 98-107 [facility] Comment on above: Performed By: #### L AB15, [id number], [id number] #### Assistant Chief Nursing Officer: MEME MA ([phone]) [facility] ([facility]) [address] [place] [address] CO2 [Moles/Vol] 21 mmol/L Low 22-30 [facility] Comment on above: Performed By: #### Eugenia ABHermelindo, [id number], [id number] #### Assistant Chief Nursing Officer: MEME MA ([phone]) [facility] ([facility]) [address] [place] [address] Creatinine [Mass/Vol] 1.33 mg/dL High 0.66-1.25 [facility] Comment on above: Performed By: #### Eugenia MOLINA, [id number], [id number] #### Assistant Chief Nursing Officer: MEME MA ([phone]) [facility] ([facility]) [address] [place] [address] GLOMERULAR FILTRATION RATE ML/MIN/1.73 SQ M.PREDICTED 58.2 mL/min/1.73m*2 Low >60.0 [facility] Comment on above: Result Comment: Calc ulation based on the Chronic Kidney Disease Epidemiology Collaboration (CKD-EPI) equation refit without adjustment for race Performed By: #### L AB15, [id number], [id number] #### Assistant Chief Nursing Officer: MEME MA ([phone]) [facility] ([facility]) [address] [place] [address] Glucose [Mass/Vol] 109 mg/dL High 70-100 [facility] Comment on above: Performed By: #### L AB15, [id number], [id number] #### Assistant Chief Nursing Officer: MEME [id number]) [facility] ([facility]) [address] [place] [address] Potassium [Moles/Vol] 3.8 mmol/L Normal 3.5-5.1 [facility] Comment on above: Performed By: #### L AB15, [id number], [id number] #### Assistant Chief Nursing Officer: MEME MA ([phone]) [facility] ([facility]) [address] [place] [address] [place] Sodium [Moles/Vol] 144 mmol/L Normal 135-145 [facility] Comment on above: Performed By: #### L AB15, [id number], [id number] #### Assistant Chief Nursing Officer: MEME MA ([phone]) [facility] ([facility]) [address] [place] [address] Urea nitrogen [Mass/Vol] 21 mg/dL High 9-20 [facility] Comment on above: Performed By: #### L AB15, [id number], [id number] #### Assistant Chief Nursing Officer: MEME MA ([phone]) [facility] ([facility]) [address] [place] [address] Anion gap [Moles/Vol] 7 mmol/L Normal 3-13 [facility] Comment on above: Performed By: #### L AB15 ####Assistant Chief Nursing Officer: MEME MA ([phone])[facility] ([facility])[address] [place] [address] Calcium [Mass/Vol] 8.7 mg/dL Normal 8.4-10.4 [facility] Comment on above: Performed By: #### L AB15 ####Assistant Chief Nursing Officer: MEME MA ([phone])[facility] ([facility])[address] [place] [address] [place] Chloride [Moles/Vol] 109 mmol/L High 98-107 [facility] Comment on above: Performed By: #### L AB15 ####Assistant Chief Nursing Officer: MEME MA ([phone])[facility] ([facility])[address] [place] [address] [place] CO2 [Moles/Vol] 22 mmol/L Normal 22-30 [facility] Comment on above: Performed By: #### L AB15 ####Assistant Chief Nursing Officer: MEME MA ([phone])[facility])[address] [place] [address] Creatinine [Mass/Vol] 1.28 mg/dL High 0.66-1.25 [facility] Comment on above: Performed By: #### L AB15 ####Assistant Chief Nursing Officer: MEME MA ([phone])[facility] ([facility])[address] [place] [address] [place] GLOMERULAR FILTRATION RATE ML/MIN/1.73 SQ M.PREDICTED 61.0 mL/min/1.73m*2 Normal >60.0 [facility] Comment on above: Result Comment: Calc ulation based on the Chronic Kidney Disease Epidemiology Collaboration (CKD-EPI) equation refit without adjustment for race Performed By: #### L AB15 ####Assistant Chief Nursing Officer: MEME MA ([phone])[facility] ([facility])[address] [place] [address] Glucose [Mass/Vol] 110 mg/dL High 70-100 [facility] Comment on above: Performed By: #### L AB15 ####Assistant Chief Nursing Officer: MEME MA ([phone])[facility])[address] [place] [address] Potassium [Moles/Vol] 4.4 mmol/L Normal 3.5-5.1 [facility] Comment on above: Performed By: #### L AB15 ####Assistant Chief Nursing Officer: MEME MA ([phone])[facility] ([facility])[address] [place] [address] [place] Sodium [Moles/Vol] 138 mmol/L Normal 135-145 [facility] Comment on above: Performed By: #### L AB15 ####Assistant Chief Nursing Officer: MEME MA ([phone])[facility] ([facility])[address] [place] [address] [place] Urea nitrogen [Mass/Vol] 23 mg/dL High 9-20 [facility] Comment on above: Performed By: #### L AB15 ####Assistant Chief Nursing Officer: MEME MA ([phone])[facility] ([facility])[address] [place] [address] BLOOD GAS ARTERIALon 023 Base excess Calc (Bld) [Moles/Vol] -4.2000 mmol/L Low -3.0-3.0 [facility] Comment on above: Performed By: #### L AB76 ####Assistant Chief Nursing Officer: MEME MA ([phone])[facility] ([facility])[address] [place] [address] CO2 [Moles/Vol] 23.3 mmol/L Normal 23.0-27.0 [facility] Comment on above: Performed By: #### L AB76 ####Assistant Chief Nursing Officer: MEME MA ([id number])[facility] ([facility])[address] [place] [address] HCO3 (Bld) [Moles/Vol] 22.0 mmol/L Normal 21.0-25.0 [facility] Comment on above: Performed By: #### L AB76 ####Assistant Chief Nursing Officer: MEME MA ([phone])[facility] ([facility])[address] [place] [address] Hemoglobin (Bld) [Mass/Vol] 10.9 g/dL Normal Screen Only [facility] Comment on above: Performed By: #### L AB76 ####Assistant Chief Nursing Officer: MEME MA ([id number])[facility] ([facility])[address] [place] [address] OXYGEN SATURATION (%) IN ARTERIAL BLOOD 97.5 % Normal 95.0-100.0 [facility] Comment on above: Performed By: #### L AB76 ####Assistant Chief Nursing Officer: MEME MA ([phone])[facility] ([facility])[address] [place] [address] PCO2 ARTERIAL 44.5 mm Hg Normal >35.0-<45.0 [facility] Comment on above: Performed By: #### L AB76 ####Assistant Chief Nursing Officer: MEME MA ([phone])[facility])[address] [place] [address] PH ARTERIAL 7.311 Low 7.350-7.450 [facility] Comment on above: Performed By: #### L AB76 ####Assistant Chief Nursing Officer: MEME MA ([phone])[facility])[address] [place] [address] PO2 ARTERIAL 119.0 mm Hg High 80.0-100.0 [facility] Comment on above: Performed By: #### L AB76 ####Assistant Chief Nursing Officer: MEME MA ([phone])[facility])[address] [place] [address] SOURCE OF OXYGEN Nasal cannula Normal [facility] Comment on above: Performed By: #### L AB76 ####Assistant Chief Nursing Officer: MEME MA ([phone])[facility])[address] [place] [address] Base excess Calc (Bld) [Moles/Vol] -4.0000 mmol/L Low -3.0-3.0 [facility] Comment on above: Performed By: #### L AB76 ####Assistant Chief Nursing Officer: MEME MA ([phone])[facility])[address] [place] [address] CO2 [Moles/Vol] 22.4 mmol/L Low 23.0-27.0 [facility] Comment on above: Performed By: #### L AB76 ####Assistant Chief Nursing Officer: MEME MA ([phone])[facility])[address] [place] [address] HCO3 (Bld) [Moles/Vol] 21.2 mmol/L Normal 21.0-25.0 [facility] Comment on above: Performed By: #### L AB76 ####Assistant Chief Nursing Officer: MEEM MA ([phone])[facility])[address] [place] [address] Hemoglobin (Bld) [Mass/Vol] 9.8 g/dL Normal Screen Only [facility] Comment on above: Performed By: #### L AB76 ####Assistant Chief Nursing Officer: MEME MA ([phone])[facility] ([facility])[address] [place] [address] OXYGEN SATURATION (%) IN ARTERIAL BLOOD 98.5 % Normal 95.0-100.0 [facility] Comment on above: Performed By: #### L AB76 ####Assistant Chief Nursing Officer: MEME MA ([id number])[facility] ([facility])[address] [place] [address] PCO2 ARTERIAL 38.9 mm Hg Normal >35.0-<45.0 [facility] Comment on above: Performed By: #### L AB76 ####Assistant Chief Nursing Officer: MEME MA ([phone])[facility] ([facility])[address] [place] [address] PH ARTERIAL 7.354 Normal 7.350-7.450 [facility] Comment on above: Performed By: #### L AB76 ####Assistant Chief Nursing Officer: MEME MA ([phone])[facility] ([facility])[address] [place] [address] PO2 ARTERIAL 273.0 mm Hg High 80.0-100.0 [facility] Comment on above: Performed By: #### L AB76 ####Assistant Chief Nursing Officer: MEME MA ([phone])[facility] ([facility])[address] [place] [address] SOURCE OF OXYGEN Vent Normal [facility] Comment on above: Performed By: #### L AB76 ####Assistant Chief Nursing Officer: MEME MA ([phone])[facility] ([facility])[address] [place] [address] BLOOD TYPE AND SCREEN GELon 10-03-2023 ABO GROUPING O Normal [facility] Comment on above: Order Comment: Speci men is valid for 3 days - nurse to verify valid specimen Performed By: #### L [id number] #### Assistant Chief Nursing Officer: MEME MA ([phone]) [facility] [address] [place] [address] RH TYPE IN BLOOD Positive Normal [facility] Comment on above: Order Comment: Speci men is valid for 3 days - nurse to verify valid specimen Performed By: #### L [id number] #### Assistant Chief Nursing Officer: MEME MA ([phone]) [facility] ([facility]) [address] [place] [address] Basic metabolic 1998 panelon 10-03-2023 Anion gap [Moles/Vol] 10 mmol/L 3 - 13 mmol/L [facility] Calcium [Mass/Vol] 8.2 mg/dL Low 8.4 - 10. 4 mg/dL [facility] Chloride [Moles/Vol] 110 mmol/L High 98 - 10 7 mmol/L [facility] CO2 [Moles/Vol] 23 mmol/L 22 - 30 mmol/L [facility] Creatinine [Mass/Vol] 1.27 mg/dL High 0.66 - 1.25 mg/dL [facility] GFR/1.73 sq M.predicted MDRD (S/P/Bld) [Vol rate/Area] 61.5 mL/min/{1.73_m2} - PINF [facility] th Glucose [Mass/Vol] 116 mg/dL High 70 - 100 mg/dL [facility] Potassium [Moles/Vol] 4.4 mmol/L 3.5 - 5.1 mmol/L [facility] Sodium [Moles/Vol] 142 mmol/L 135 - 145 mmol/L [facility] Urea nitrogen [Mass/Vol] 20 mg/dL 9 - 20 mg/dL [facility] Anion gap [Moles/Vol] 11 mmol/L 3 - 13 mmol/L [facility] Calcium [Mass/Vol] 8.3 mg/dL Low 8.4 - 10. 4 mg/dL [facility] Chloride [Moles/Vol] 112 mmol/L High 98 - 10 7 mmol/L [facility] CO2 [Moles/Vol] 21 mmol/L Low 22 - 30 mmol/L [facility] Creatinine [Mass/Vol] 1.33 mg/dL High 0.66 - 1.25 mg/dL [facility] GFR/1.73 sq M.predicted MDRD (S/P/Bld) [Vol rate/Area] 58.2 mL/min/{1.73_m2} Low - PINF [facility] Glucose [Mass/Vol] 109 mg/dL High 70 - 100 mg/dL [facility] Potassium [Moles/Vol] 3.8 mmol/L 3.5 - 5.1 mmol/L [facility] Sodium [Moles/Vol] 144 mmol/L 135 - 145 mmol/L [facility] Urea nitrogen [Mass/Vol] 21 mg/dL High 9 - 20 mg/dL [facility] Anion gap [Moles/Vol] 7 mmol/L 3 - 13 mmol/L [facility] Calcium [Mass/Vol] 8.7 mg/dL 8.4 - 10. 4 mg/dL [facility] Chloride [Moles/Vol] 109 mmol/L High 98 - 10 7 mmol/L [facility] CO2 [Moles/Vol] 22 mmol/L 22 - 30 mmol/L [facility] Creatinine [Mass/Vol] 1.28 mg/dL High 0.66 - 1.25 mg/dL [facility] GFR/1.73 sq M.predicted MDRD (S/P/Bld) [Vol rate/Area] 61.0 mL/min/{1.73_m2} - PINF [facility] Glucose [Mass/Vol] 110 mg/dL High 70 - 100 mg/dL [facility] Interpretation and review of laboratory results Abnormal [facility] Potassium [Moles/Vol] 4.4 mmol/L 3.5 - 5.1 mmol/L [facility] Sodium [Moles/Vol] 138 mmol/L 135 - 145 mmol/L [facility] Urea nitrogen [Mass/Vol] 23 mg/dL High 9 - 20 mg/dL [facility] Blood Gas, Arterialon 2022 Base excess Calc (Bld) [Moles/Vol] -4.2000 mmol/L Low -3.0 - 3.0 mmol/L [facility] CO2 (Bld) [Partial pressure] 44.5 mm[Hg] - PINF [facility] CO2 [Moles/Vol] 23.3 mmol/L 23.0 - 27.0 mmol/L [facility] HCO3 (Bld) [Moles/Vol] 22.0 mmol/L 21.0 - 25.0 mmol/L [facility] Hemoglobin (Bld) [Mass/Vol] 10.9 g/dL Screen Only [facility] Interpretation and review of laboratory results Abnormal [facility] Oxygen (Bld) [Partial pressure] 119.0 mm[Hg] High [facility] pH (Bld) 7.311 [pH] Low 7.350 - 7.450 [facility] Source Of Oxygen Nasal cannula [facility] Blood gas, arterialOrdered B y: Ana Luisa Maciasreed on 10-03-2023 Base excess Calc (Bld) [Moles/Vol] -4.0000 mmol/L Low -3.0 - 3.0 mmol/L [facility] CO2 (Bld) [Partial pressure] 38.9 mm[Hg] - PINF [facility] CO2 [Moles/Vol] 22.4 mmol/L Low 23.0 - 27.0 mmol/L [facility] HCO3 (Bld) [Moles/Vol] 21.2 mmol/L 21.0 - 25.0 mmol/L [facility] Hemoglobin (Bld) [Mass/Vol] 9.8 g/dL Screen Only [facility] Interpretation and review of laboratory results Abnormal [facility] Oxygen (Bld) [Partial pressure] 273.0 mm[Hg] High [facility] pH (Bld) 7.354 [pH] 7.350 - 7.450 [facility] Source Of Oxygen Vent [facility] Blood type and Crossmatch pa michael (Bld)on 10-03-2023 ABO group Nom (Bld) O [facility] Blood group antibody screen GEL Ql Negative [facility] D Ag Ql (RBC) Positive [facility] h [facility] CALCIUM, IONIZEDon 3 CALCIUM IONIZED 4.40 mg/dL Normal 4.30-5.20 [facility] Comment on above: Performed By: #### L AB54 #### Assistant Chief Nursing Officer: MEME MA ([phone]) [address] PH, IONIZED CALCIUM 7.34 Normal 7.31-7.46 [facility] Comment on above: Performed By: #### L AB54 #### Assistant Chief Nursing Officer: MEME MA ([phone]) [facility] ([facility]) [address] [place] [address] CALCIUM IONIZED 4.40 mg/dL Normal 4.30-5.20 [facility] Comment on above: Performed By: #### L [id number] #### Assistant Chief Nursing Officer: MEME MA ([phone]) [facility] ([facility]) [address] [place] [address] PH, IONIZED CALCIUM 7.37 Normal 7.31-7.46 [facility] Comment on above: Performed By: #### L [id number] #### Assistant Chief Nursing Officer: MEME MA ([phone]) [facility] ([facility]) [address] [place] [address] CBC (HEMOGRAM)on 10-03-2023 Erythrocyte distribution width (RBC) [Ratio] 14.2 % Normal 11.5-14.5 [facility] Comment on above: Performed By: #### L [id number] #### Assistant Chief Nursing Officer: MEME MA ([phone]) [facility] ([facility]) [address] [place] [address] ERYTHROCYTE MEAN CORPUSCULAR HEMOGLOBIN CONCENTRATION (G/DL) BY AUTOMATED 33.7 % Normal 32.0-36.0 [facility] Comment on above: Performed By: #### L [id number] #### Assistant Chief Nursing Officer: MEME AM ([id number]) [facility]) [address] [place] [address] Hematocrit (Bld) [Volume fraction] 34.1 % Low 40.0-52.0 [facility] Comment on above: Performed By: #### L [id number] #### Assistant Chief Nursing Officer: MEME MA ([phone]) [facility]) [address] [place] [address] Hemoglobin (Bld) [Mass/Vol] 11.5 g/dL Low 13.0-18.0 [facility] Comment on above: Performed By: #### L [id number] #### Assistant Chief Nursing Officer: MEME MA ([id number]) [facility] ([facility]) [address] [place] [address] MCH (RBC) [Entitic mass] 30.8 pg Normal 26.0-34.0 [facility] Comment on above: Performed By: #### L [id number] #### Assistant Chief Nursing Officer: MEME MA ([phone]) [facility] ([facility]) [address] [place] [address] MCV (RBC) [Entitic vol] 91.4 fL Normal 80.0-98.0 [facility] Comment on above: Performed By: #### L [id number] #### Assistant Chief Nursing Officer: MEME MA ([phone]) [facility] ([facility]) [address] [place] [address] Platelet mean volume (Bld) [Entitic vol] 8.2 fL Normal 7.4-12.4 [facility] Comment on above: Performed By: #### L [id number] #### Assistant Chief Nursing Officer: MEME MA ([phone]) [facility] ([facility]) [address] [place] [address] Platelets (Bld) [#/Vol] 112 10*3/uL Low 140-440 [facility] Comment on above: Performed By: #### L [id number] #### Assistant Chief Nursing Officer: MEME MA ([phone]) [facility] ([facility]) [address] [place] [address] RBC (Bld) [#/Vol] 3.73 10*6/uL Low 4.40-5.90 [facility] Comment on above: Performed By: #### L [id number] #### Assistant Chief Nursing Officer: MEME MA ([id number]) [facility] ([facility]) [address] [place] [address] WBC (Bld) [#/Vol] 9.6 10*3/uL Normal 3.6-10.7 [facility] Comment on above: Performed By: #### L [id number] #### Assistant Chief Nursing Officer: MEME MA ([phone]) [facility] ([facility]) [address] [place] [address] Erythrocyte distribution width (RBC) [Ratio] 14.2 % Normal 11.5-14.5 [facility] Comment on above: Performed By: #### L [id number] #### Assistant Chief Nursing Officer: MEME MA ([phone]) [facility]) [address] [place] [address] ERYTHROCYTE MEAN CORPUSCULAR HEMOGLOBIN CONCENTRATION (G/DL) BY AUTOMATED 33.5 % Normal 32.0-36.0 [facility] Comment on above: Performed By: #### L [id number] #### Assistant Chief Nursing Officer: MEME MA ([phone]) [facility] ([facility]) [address] [place] [address] Hematocrit (Bld) [Volume fraction] 28.3 % Low 40.0-52.0 [facility] Comment on above: Performed By: #### L [id number] #### Assistant Chief Nursing Officer: MEME MA ([phone]) [facility]) [address] [place] [address] Hemoglobin (Bld) [Mass/Vol] 9.5 g/dL Low 13.0-18.0 [facility] Comment on above: Performed By: #### L [id number] #### Assistant Chief Nursing Officer: MEME MA ([id number]) [facility]) [address] [place] [address] MCH (RBC) [Entitic mass] 30.6 pg Normal 26.0-34.0 [facility] Comment on above: Performed By: #### L [id number] #### Assistant Chief Nursing Officer: MEME MA ([phone]) [facility]) [address] [place] [address] MCV (RBC) [Entitic vol] 91.2 fL Normal 80.0-98.0 [facility] Comment on above: Performed By: #### L [id number] #### Assistant Chief Nursing Officer: MEME MA ([phone]) [facility]) [address] [place] [address] Platelet mean volume (Bld) [Entitic vol] 7.8 fL Normal 7.4-12.4 [facility] Comment on above: Performed By: #### L [id number] #### Assistant Chief Nursing Officer: MEME MA ([id number]) [facility] ([facility]) [address] [place] [address] Platelets (Bld) [#/Vol] 104 10*3/uL Low 140-440 [facility] Comment on above: Performed By: #### L [id number] #### Assistant Chief Nursing Officer: MEME MA ([phone]) [facility] ([facility]) [address] [place] [address] RBC (Bld) [#/Vol] 3.10 10*6/uL Low 4.40-5.90 [facility] Comment on above: Performed By: #### L [id number] #### Assistant Chief Nursing Officer: MEME MA ([phone]) [facility] ([facility]) [address] [place] [address] WBC (Bld) [#/Vol] 7.2 10*3/uL Normal 3.6-10.7 [facility] Comment on above: Performed By: #### L [id number] #### Assistant Chief Nursing Officer: MEME MA ([phone]) [facility] ([facility]) [address] [place] [address] CBC W Auto Differential pane l (Bld)Ordered By: Inna Merida on 10-03-2023 Basophils (Bld) [#/Vol] 0.0 10*3/uL 0.0 - 0.2 10*3/uL [facility] Basophils/100 WBC (Bld) 0.6 % 0.0 - 2.0 % [facility] Eosinophils (Bld) [#/Vol] 0.2 10*3/uL 0. 0 - 0.5 10*3/uL [facility] Eosinophils/100 WBC (Bld) 3.7 % 1.0 - 6.0 % [facility] Erythrocyte distribution width (RBC) [Ratio] 14.3 % 11.5 - 14.5 % [facility] Hematocrit (Bld) [Volume fraction] 39.0 % Low 40.0 - 52.0 % [facility] Hemoglobin (Bld) [Mass/Vol] 13.2 g/dL 13.0 - 18.0 g/dL [facility] Interpretation and review of laboratory results Abnormal [facility] th Lymphocytes (Bld) [#/Vol] 1.8 10*3/uL 1. 0 - 4.3 10*3/uL [facility] Lymphocytes/100 WBC (Bld) 32.3 % 20 .0 - 40.0 % [facility] MCH (RBC) [Entitic mass] 30.8 pg 26. 0 - 34.0 pg [facility] MCHC (RBC) [Mass/Vol] 33.7 % 32.0 - 36.0 % [facility] MCV (RBC) [Entitic vol] 91.4 fL 80.0 - 98.0 fL [facility] Monocytes (Bld) [#/Vol] 0.4 10*3/uL 0.0 - 0.8 10*3/uL [facility] Monocytes/100 WBC (Bld) 7.8 % 2.0 - 10.0 % [facility] Neutrophils (Bld) [#/Vol] 3.1 10*3/uL 1. 8 - 7.0 10*3/uL [facility] Neutrophils/100 WBC (Bld) 55.6 % 40 .0 - 80.0 % [facility] Nucleated RBC/100 WBC (Bld) [Ratio] 0.1 % [facility] Platelet mean volume (Bld) [Entitic vol] 8.4 fL 7.4 - 12.4 fL [facility] Platelets (Bld) [#/Vol] 109 10*3/uL Low 140 - 440 10*3/uL [facility] RBC (Bld) [#/Vol] 4.27 10*6/uL Low 4.40 - 5.9 0 10*6/uL [facility] WBC (Bld) [#/Vol] 5.5 10*3/uL 3.6 - 10.7 10*3/uL [facility] CBC WITH AUTO DIFFERENTIALon 10-03-2023 Basophils (Bld) [#/Vol] 0.0 10*3/uL Normal 0.0-0.2 [facility] Comment on above: Performed By: #### L [id number] ####Assistant Chief Nursing Officer: MEME MA ([phone])[address] Basophils/100 WBC (Bld) 0.6 % Normal 0.0-2.0 [facility] Comment on above: Performed By: #### L [id number] ####Assistant Chief Nursing Officer: MEME MA ([phone])[facility])[address] [place] [address] Eosinophils (Bld) [#/Vol] 0.2 10*3/uL Normal 0.0-0.5 [facility] Comment on above: Performed By: #### L [id number] ####Assistant Chief Nursing Officer: MEME MA ([phone])[facility])[address] [place] [address] Eosinophils/100 WBC (Bld) 3.7 % Normal 1.0-6.0 [facility] Comment on above: Performed By: #### L [id number] ####Assistant Chief Nursing Officer: MEME MA ([phone])[facility])[address] [place] [address] Erythrocyte distribution width (RBC) [Ratio] 14.3 % Normal 11.5-14.5 [facility] Comment on above: Performed By: #### L [id number] ####Assistant Chief Nursing Officer: MEME MA ([phone])[facility])[address] [place] [address] ERYTHROCYTE MEAN CORPUSCULAR HEMOGLOBIN CONCENTRATION (G/DL) BY AUTOMATED 33.7 % Normal 32.0-36.0 [facility] Comment on above: Performed By: #### L [id number] ####Assistant Chief Nursing Officer: MEME MA ([id number])[facility])[address] [place] [address] Hematocrit (Bld) [Volume fraction] 39.0 % Low 40.0-52.0 [facility] Comment on above: Performed By: #### L [id number] ####Assistant Chief Nursing Officer: MEME MA ([phone])[facility])[address] [place] [address] Hemoglobin (Bld) [Mass/Vol] 13.2 g/dL Normal 13.0-18.0 [facility] Comment on above: Performed By: #### L [id number] ####Assistant Chief Nursing Officer: MEME MA ([id number])[facility])[address] [place] [address] Lymphocytes (Bld) [#/Vol] 1.8 10*3/uL Normal 1.0-4.3 [facility] Comment on above: Performed By: #### L [id number] ####Assistant Chief Nursing Officer: MEME MA ([phone])[facility])[address] [place] [address] Lymphocytes/100 WBC (Bld) 32.3 % Normal 20.0-40.0 [facility] Comment on above: Performed By: #### L [id number] ####Assistant Chief Nursing Officer: MEME MA ([id number])[facility])[address] [place] [address] MCH (RBC) [Entitic mass] 30.8 pg Normal 26.0-34.0 [facility] Comment on above: Performed By: #### L [id number] ####Assistant Chief Nursing Officer: MEME MA ([id number])[facility])[address] [place] [address] MCV (RBC) [Entitic vol] 91.4 fL Normal 80.0-98.0 [facility] Comment on above: Performed By: #### L [id number] ####Assistant Chief Nursing Officer: MEME MA ([phone])[facility])[address] [place] [address] Monocytes (Bld) [#/Vol] 0.4 10*3/uL Normal 0.0-0.8 [facility] Comment on above: Performed By: #### L [id number] ####Assistant Chief Nursing Officer: MEME MA ([phone])[facility])[address] [place] [address] Monocytes/100 WBC (Bld) 7.8 % Normal 2.0-10.0 [facility] Comment on above: Performed By: #### L [id number] ####Assistant Chief Nursing Officer: MEME MA ([phone])[facility])[address] [place] [address] [place] Neutrophils (Bld) [#/Vol] 3.1 10*3/uL Normal 1.8-7.0 [facility] Comment on above: Performed By: #### L [id number] ####Assistant Chief Nursing Officer: MEME MA ([phone])[facility] ([facility])[address] [place] [address] Neutrophils/100 WBC (Bld) 55.6 % Normal 40.0-80.0 [facility] Comment on above: Performed By: #### L [id number] ####Assistant Chief Nursing Officer: MEME MA ([phone])[facility] ([facility])[address] [place] [address] NRBC (PER 100 WBCS) BY AUTOMATED COUNT 0.1 /100 WBCs Normal 0.0-2.0 [facility] Comment on above: Performed By: #### L [id number] ####Assistant Chief Nursing Officer: MEME MA ([id number])[facility] ([facility])[address] [place] [address] Platelet mean volume (Bld) [Entitic vol] 8.4 fL Normal 7.4-12.4 [facility] Comment on above: Performed By: #### L [id number] ####Assistant Chief Nursing Officer: MEME MA ([id number])[facility] ([facility])[address] [place] [address] [place] Platelets (Bld) [#/Vol] 109 10*3/uL Low 140-440 [facility] Comment on above: Performed By: #### L [id number] ####Assistant Chief Nursing Officer: MEME MA ([id number])[facility] ([facility])[address] [place] [address] [place] RBC (Bld) [#/Vol] 4.27 10*6/uL Low 4.40-5.90 [facility] Comment on above: Performed By: #### L [id number] ####Assistant Chief Nursing Officer: MEME MA ([phone])[facility] ([facility])[address] [place] [address] WBC (Bld) [#/Vol] 5.5 10*3/uL Normal 3.6-10.7 [facility] Comment on above: Performed By: #### L [id number] ####Assistant Chief Nursing Officer: MEME MA ([id number])[facility] ([facility])[address] [place] [address] CBC panel Auto (Bld)Ordered By: Jayshree Silver on 10-03-2023 Erythrocyte distribution width (RBC) [Ratio] 14.2 % 11.5 - 14.5 % [facility] Hematocrit (Bld) [Volume fraction] 34.1 % Low 40.0 - 52.0 % [facility] Hemoglobin (Bld) [Mass/Vol] 11.5 g/dL Low 13.0 - 18.0 g/dL [facility] Interpretation and review of laboratory results Abnormal [facility] MCH (RBC) [Entitic mass] 30.8 pg 26. 0 - 34.0 pg [facility] MCHC (RBC) [Mass/Vol] 33.7 % 32.0 - 36.0 % [facility] MCV (RBC) [Entitic vol] 91.4 fL 80.0 - 98.0 fL [facility] Platelet mean volume (Bld) [Entitic vol] 8.2 fL 7.4 - 12.4 fL [facility] Platelets (Bld) [#/Vol] 112 10*3/uL Low 140 - 440 10*3/uL [facility] RBC (Bld) [#/Vol] 3.73 10*6/uL Low 4.40 - 5.9 0 10*6/uL [facility] WBC (Bld) [#/Vol] 9.6 10*3/uL 3.6 - 10.7 10*3/uL [facility] CBC panel Auto (Bld)Ordered By: Yeison Gotti on 10-03-2023 Erythrocyte distribution width (RBC) [Ratio] 14.2 % 11.5 - 14.5 % [facility] Hematocrit (Bld) [Volume fraction] 28.3 % Low 40.0 - 52.0 % [facility] Hemoglobin (Bld) [Mass/Vol] 9.5 g/dL Low 13.0 - 18.0 g/dL [facility] Interpretation and review of laboratory results Abnormal [facility] MCH (RBC) [Entitic mass] 30.6 pg 26. 0 - 34.0 pg [facility] MCHC (RBC) [Mass/Vol] 33.5 % 32.0 - 36.0 % [facility] MCV (RBC) [Entitic vol] 91.2 fL 80.0 - 98.0 fL [facility] Platelet mean volume (Bld) [Entitic vol] 7.8 fL 7.4 - 12.4 fL [facility] Platelets (Bld) [#/Vol] 104 10*3/uL Low 140 - 440 10*3/uL [facility] RBC (Bld) [#/Vol] 3.10 10*6/uL Low 4.40 - 5.9 0 10*6/uL [facility] WBC (Bld) [#/Vol] 7.2 10*3/uL 3.6 - 10.7 10*3/uL [facility] COMPREHENSIVE METABOLIC PANE Justino 10-03-2023 Albumin [Mass/Vol] 4.8 g/dL Normal 3.5-5.0 [facility] Comment on above: Performed By: #### L [id number] #### Assistant Chief Nursing Officer: MEME MA ([id number]) [facility]) [address] [place] [address] ALP [Catalytic activity/Vol] 41 U/L Normal 38-126 [facility] Comment on above: Performed By: #### L [id number] #### Assistant Chief Nursing Officer: MEME MA ([id number]) [facility] ([facility]) [address] [place] [address] ALT [Catalytic activity/Vol] 31 U/L Normal 0-49 [facility] Comment on above: Performed By: #### L [id number] #### Assistant Chief Nursing Officer: MEME MA ([id number]) [facility] ([facility]) [address] [place] [address] Anion gap [Moles/Vol] 12 mmol/L Normal 3-13 [facility] Comment on above: Performed By: #### L [id number] #### Assistant Chief Nursing Officer: MEME MA ([id number]) [facility] ([facility]) [address] [place] [address] AST [Catalytic activity/Vol] 55 U/L High 15-46 [facility] Comment on above: Performed By: #### L [id number] #### Assistant Chief Nursing Officer: MEME MA ([id number]) [facility] ([facility]) [address] [place] [address] Bilirubin [Mass/Vol] 0.9 mg/dL Normal 0.2-1.3 [facility] Comment on above: Performed By: #### L [id number] #### Assistant Chief Nursing Officer: MEME MA ([id number]) [facility] ([facility]) [address] [place] [address] Calcium [Mass/Vol] 8.1 mg/dL Low 8.4-10.4 [facility] Comment on above: Performed By: #### L [id number] #### Assistant Chief Nursing Officer: MEME MA ([id number]) [facility]) [address] [place] [address] [place] Chloride [Moles/Vol] 108 mmol/L High 98-107 [facility] Comment on above: Performed By: #### L [id number] #### Assistant Chief Nursing Officer: MEME MA ([id number]) [facility] ([facility]) [address] [place] [address] [place] CO2 [Moles/Vol] 23 mmol/L Normal 22-30 [facility] Comment on above: Performed By: #### L [id number] #### Assistant Chief Nursing Officer: MEME MA ([id number]) [facility] ([facility]) [address] [place] [address] Creatinine [Mass/Vol] 1.41 mg/dL High 0.66-1.25 [facility] Comment on above: Performed By: #### L [id number] #### Assistant Chief Nursing Officer: MEME MA ([id number]) [facility]) [address] [place] [address] [place] GLOMERULAR FILTRATION RATE ML/MIN/1.73 SQ M.PREDICTED 54.3 mL/min/1.73m*2 Low >60.0 [facility] Comment on above: Result Comment: Calc ulation based on the Chronic Kidney Disease Epidemiology Collaboration (CKD-EPI) equation refit without adjustment for race Performed By: #### L [id number] #### Assistant Chief Nursing Officer: MEME MA ([id number]) [facility] ([facility]) [address] [place] [address] Glucose [Mass/Vol] 152 mg/dL High 70-100 [facility] Comment on above: Performed By: #### L [id number] #### Assistant Chief Nursing Officer: MEME MA ([id number]) [facility]) [address] [place] [address] Potassium [Moles/Vol] 4.9 mmol/L Normal 3.5-5.1 [facility] Comment on above: Performed By: #### L [id number] #### Assistant Chief Nursing Officer: MEME MA ([id number]) [facility] ([facility]) [address] [place] [address] [place] Protein [Mass/Vol] 7.4 g/dL Normal 6.3-8.2 [facility] Comment on above: Performed By: #### L [id number] #### Assistant Chief Nursing Officer: MEME MA ([id number]) [facility] ([facility]) [address] [place] [address] [place] Sodium [Moles/Vol] 142 mmol/L Normal 135-145 [facility] Comment on above: Performed By: #### L [id number] #### Assistant Chief Nursing Officer: MEME MA ([id number]) [facility]) [address] [place] [address] [place] Urea nitrogen [Mass/Vol] 20 mg/dL Normal 9-20 [facility] Comment on above: Performed By: #### L [id number] #### Assistant Chief Nursing Officer: MEME [id number]) [facility] ([facility]) [address] [place] [address] Calcium.ionized [Moles/Vol]o n 10-03-2023 Calcium.ionized (Bld) [Moles/Vol] 4.40 mg/dL 4.30 - 5.20 mg/dL [facility] Interpretation and review of laboratory results Normal [facility] PH, IONIZED CALCIUM 7.34 7.31 - 7.46 [facility] Calcium.ionized (Bld) [Moles/Vol] 4.40 mg/dL 4.30 - 5.20 mg/dL [facility] Interpretation and review of laboratory results Normal [facility] PH, IONIZED CALCIUM 7.37 7.31 - 7.46 [facility] Comprehensive metabolic 1998 panelon 10-03-2023 Albumin [Mass/Vol] 4.8 g/dL 3.5 - 5.0 g/dL [facility] ALP [Catalytic activity/Vol] 41 U/L 38 - 126 U/L [facility] ALT [Catalytic activity/Vol] 31 U/L 0 - 49 U/L [facility] Anion gap [Moles/Vol] 12 mmol/L 3 - 13 mmol/L [facility] AST [Catalytic activity/Vol] 55 U/L High 15 - 46 U/L [facility] Bilirubin [Mass/Vol] 0.9 mg/dL 0.2 - 1 .3 mg/dL [facility] Calcium [Mass/Vol] 8.1 mg/dL Low 8.4 - 10. 4 mg/dL [facility] Chloride [Moles/Vol] 108 mmol/L High 98 - 10 7 mmol/L [facility] CO2 [Moles/Vol] 23 mmol/L 22 - 30 mmol/L [facility] Creatinine [Mass/Vol] 1.41 mg/dL High 0.66 - 1.25 mg/dL [facility] GFR/1.73 sq M.predicted MDRD (S/P/Bld) [Vol rate/Area] 54.3 mL/min/{1.73_m2} Low - PINF [facility] Glucose [Mass/Vol] 152 mg/dL High 70 - 100 mg/dL [facility] Interpretation and review of laboratory results Abnormal [facility] Potassium [Moles/Vol] 4.9 mmol/L 3.5 - 5.1 mmol/L [facility] Protein [Mass/Vol] 7.4 g/dL 6.3 - 8.2 g/dL [facility] Sodium [Moles/Vol] 142 mmol/L 135 - 145 mmol/L [facility] Urea nitrogen [Mass/Vol] 20 mg/dL 9 - 20 mg/dL [facility] Consulton 10-03-2023 Consult -- Attestation signed by Hanna Díaz MD at 10/03/2023 6:56 PM I performed a history and physical examination of the patient. I have reviewed the patient's chart including pertinent history, medications, labs, radiology, and other reports. I reviewed the resident/ANIBAL's note, agree with the documented findings and plan of care (with modifications noted if any), and discussed the management plan. I have performed a substantive portion of the the medical decision making. Pt is s/p CABG. No history of diabetes. BG stable. Pt on insulin drip post op, currently at 1.5 units/hr. Patient extubated. Still somnolent. Records reviewed. Lab Results Component Value Date HGBA1C 5.4 09/29/2023 Lab Results Component Value Date GLUCOSE 152 (H) 10/03/2023 CALCIUM 8.1 (L) 10/03/2023 NA 142 10/03/2023 K 4.9 10/03/2023 CO2 23 10/03/2023 CL 108 (H) 10/03/2023 BUN 20 10/03/2023 CREATININE 1.41 (H) 10/03/2023 BP (!) 146/83 Pulse 81 Temp 36.4 ?C (97.5 ?F) (Core) Resp 23 Ht 6' (1.829 m) Wt 212 lb (96.2 kg) SpO2 100% BMI 28.75 kg/m? Sleepy, not in distress, responsive, RRR, chest incision intact, clear breath sounds, no rales, +chest tubes, abdomen soft, non-tender, no edema. Dx: Stress hyperglycemia. CAD s/p CABG. Plan: - will continue insulin infusion per protocol then transition to subcutaneous insulin - continue blood glucose monitoring - discussed postop hyperglycemia management and goals of therapy - patient will unlikely require any pharmacotherapy on discharge for hyperglycemia - will follow Total time 35 minutes which include review of records, counseling, management, and coordination of care as documented in note. Department of Internal Medicine Division of Endocrinology, Diabetes, & Metabolism Endocrinology Note Patient Name: Jadon Reyes : 1955 AGE: 67 y.o. Room/Bed: T1-110/T1-110 A Admission Date: 09/29/2023 Visit Date: 10/03/2023 Reason for Endocrine Consult: post op CABG Provider/Team Requesting Consult: CTS PCP: JUAN SOUSA MD Outpt Assistant Hall Director: N/A ASSESSMENT: S/P CABG x 3 10/03/2023 Stress induced hyperglycemia HTN/HLD smoker PLAN: Continue insulin drip protocol ICU goal <180 GMF goal <150 POCT BG ACHS Hypoglycemia per protocol Carb controlled diet when advanced ANTICIPATED ENDOCRINE HOME GOING RECOMMENDATIONS: Optimized for Discharge from Endocrine standpoint: No Home Going Endocrine Rx Recommendations-- TBD not likely needed Outpt Follow Up-- PCP SUBJECTIVE/HPI: CHIEF COMPLAINT: No chief complaint on file. Patient presented to [facility] after was abnormal. He was transferred to [facility] after [facility] showed multivessal CAD Patient underwent CABG x 3 10/03/23 Per EHR no hx DM or DM medications Lab Results Component Value Date HGBA1C 5.4 09/29/2023 Glucose Date/Time Value Ref Range Status 10/03/2023 12:36 PM 112 (H) 70 - 100 mg/dL Final Patient resting in bed Patient is just extubated before my arrival per nursing, patient medicated and did not answer questions, only opened eye momentarily when name called No family present at this time Insulin drip not yet started due to BG 112 does not meet drip protocol as yet Discussed with nursing Review of Systems Unable to perform ROS: Acuity of condition ROS negative except for those mentioned in HPI. OBJECTIVE: Vitals: 10/03/23 0600 10/03/23 0839 10/03/23 1232 10/03/23 1300 BP: BP Location: Patient Position: Pulse: 71 71 Resp: 14 18 Temp: 36.4 ?C (97.5 ?F) TempSrc: Core SpO2: 100% 100% Weight: 212 lb (96.2 kg) 212 lb (96.2 kg) Height: 6' (1.829 m) Physical Exam Vitals reviewed. HENT: Head: Normocephalic. Cardiovascular: Rate and Rhythm: Normal rate and regular rhythm. Pulses: Normal pulses. Pulmonary: Effort: Pulmonary effort is normal. Breath sounds: Normal breath sounds. Abdominal: General: Bowel sounds are normal. Musculoskeletal: General: No swelling. Normal range of motion. Skin: General: Skin is warm and dry. Comments: Sternal incision clean and dry Left leg wrapped Neurological: Comments: Sleepy, recently extubated 24 hour intake/output: Intake/Output Summary (Last 24 hours) at 10/03/2023 1449 Last data filed at 10/03/2023 1356 Gross per 24 hour Intake 3130.28 ml Output 2980 ml Net 150.28 ml Diet: NPO diet Medications (as per EMR): HomeMeds: Current Outpatient Medications Medication Instructions aspirin 81 mg, Oral, Daily latanoprost (Xalatan) 0.005 % ophthalmic solution 1 drop, Both Eyes, Nightly losartan-hydroCHLOROth iazide (Hyzaar) 100-12.5 MG tablet 1 tablet, Oral, Daily Scheduled Meds:acetaminophen, 1,000 mg, Oral, q8h ceFAZolin, 2,000 mg, IntraVENous, q8h chlorhexidine, 15 mL, Mouth/ (more content not included)... Normal [facility] Consult -- Attestation signed by Carlos Ospina DO at 10/03/2023 3:53 PM I have personally performed a icgt-yo-bfak diagnostic evaluation on this patient on date of service 10/03/23 . History, labs, imaging studies, and electronic medical record have been reviewed by me. This note documented by the []feed house supervisor [x]ANIBAL reflects my history, exam, and medical decision making. I have reviewed and agree with the care plan. Changes were made in the orders as necessary. ROS documentation was reviewed and negative unless otherwise stated in HPI. Additional pertinent interval history, ROS, and physical exam findings: 67 y/o M with PMHx as noted below and elsewhere in EMR. Recent + stress test on 09/27/23 showing reversible ischemia led to ER eval in [facility]. Presentation EKG showed changes (see H&P). Underwent cath on 09/28/23 showing MVCAD. Transferred to [facility] for CTS eval. 09/29/23 EF 55%. Mild LVH. Normal LV wall motion. RV normal is size and fcn. No valve abnorms. MICU consulted for assistance with postop mgmt. Vfib x1 coming off of pump. Shocked. Amio bolus x1. K was 6 intra op. Received 10 units of insulin. Received 2 units plts intra op. Post op #s upon unit arrival: CO 5.26 CI 2.45 SVR 1079 CVP 6. Assessment: CABGx3 10/03/23 CAD s/p CABG Tobacco use HTN Stress hyperglycemia Plan: Continue vent bundle/mgmt. Anticipate ability to follow fast track extubation (6hr edward 1830). Monitor for s/s bleeding. Repeat BMP to look at K since it was high intra-op. Continue postop insulin protocol. Endo consult. Agree with remainder of recs in ANIBAL note plan. Total critical care time for this patient with life-threatening unstable organ failure, including direct patient contact, management of life support systems, review of data including imaging and labs, and discussions with other team members and physicians at least 40min so far today, excluding procedures. [facility]: Critical Care Consultation Note Date: 10/03/23 PATIENT NAME: Jadon Reyes : 1955 (67 y.o.) Reason for Consult: Critical Care & Vent Management HPI: 67 year old male patient with a known PMHx that includes HTN, HLD, and smoking. He presented to [facility] ED on 09/27/23 after he was called with results of a stress test he underwent. The stress test was completed earlier in the day on 09/27/23 and was positive for reversible ischemia. On admission in ED, his EKG showed T wave inversions in lead III and aVF, troponin negative. He was started on aspirin, heparin and Cardiology consulted. He had a cardiac catheterization on 09/28/23 which revealed multivessel CAD. He was transferred to [facility] for CABG consideration, consented to surgical revascularization. Surgery: 10/03/23: CABG x3 (SCHWAB-LAD, SVG-PDA, SVG-PL), LLE EVH Interval History: 10/03/23: POD #0: Patient arrived to the unit, intubated and sedated. Surgical hand off completed below. Review of Systems Unable to perform ROS: Intubated Allergies: Lisinopril Past Medical History: has a past medical history of Glaucoma and Hypertension. Past Surgical History: has no past surgical history on file. Social History: reports that he has quit smoking. His smoking use included cigars and cigarettes. He has quit using smokeless tobacco. His smokeless tobacco use included chew. He reports current alcohol use. He reports that he does not use drugs. Family History: family history includes Coronary artery disease in his father, maternal grandfather, and paternal grandfather; Heart attack in his maternal grandfather and paternal grandfather. Medications: Prior to Admission medications Medication Sig Start Date End Date Taking? Authorizing Provider aspirin 81 MG EC tablet Take 81 mg by mouth daily. Historical Provider, latanoprost (Xalatan) 0.005 % ophthalmic solution Administer 1 drop into both eyes Nightly. Historical Provider, losartan-hydroCHLOROth iazide (Hyzaar) 100-12.5 MG tablet Take 1 tablet by mouth daily. Historical Provider, Surgery Hand Off: Arrival Time in HLU: 13:32 Complications/Pertinen t Events: Afib/flutter coming off pump, now SR. Had elevated K (above 6) during surgery Last Paralytic: 10:49 am Medications given in route: none Gtts OR report Propofol: 20 mcg/kg/min Insulin:off Amicar: 29 Current gtts upon arrival Propofol: 20 mcg/kg/min Insulin:off Amicar: 29 Devices: Epicardial wires: yes [x] no [] Blood Transfusions Intra Op: yes [] no [] pRBC: 0 FFP: 2 Cryo: 0 PLT: 0 CellSaver: yes Vital Signs including Cardiac Numbers (if indicated) at Conclusion of Hand-off OR HLU CO 5.26 CI 2.45 CVP 6 SVR 1079 PAP Additional Interventio (more content not included)... Normal [facility] FIBRINOGENon 10-03-2023 FIBRINOGEN 252 mg/dL Normal 200-400 [facility] Comment on above: Performed By: #### L [id number] #### Assistant Chief Nursing Officer: MEME MA ([phone]) [facility]) [address] [place] [address] FIBRINOGEN 209 mg/dL Normal 200-400 [facility] Comment on above: Performed By: #### L [id number], [id number] ####Assistant Chief Nursing Officer: MEME MA ([phone])[facility] ([facility])[address] [place] [address] Fibrinogenon 10-03-2023 Fibrinogen Coag (PPP) [Mass/Vol] 252 mg/dL 200 - 400 mg/dL [facility] Fibrinogen Coag (PPP) [Mass/Vol] 209 mg/dL 200 - 400 mg/dL [facility] Fibrinogen Coag (PPP) [Mass/ Vol]on 10-03-2023 Interpretation and review of laboratory results [facility] Interpretation and review of laboratory results [facility] MAGNESIUMon 10-03-2023 Magnesium [Mass/Vol] 3.2 mg/dL High 1.6-2.3 [facility] Comment on above: Performed By: #### L [id number], [id number] ####Assistant Chief Nursing Officer: MEME MA ([id number])[facility] [place] [address] Magnesium [Mass/Vol] 4.0 mg/dL High 1.6-2.3 [facility] Comment on above: Performed By: #### L AB15, [id number], [id number] #### Assistant Chief Nursing Officer: MEME MA ([id number]) [facility] [address] [place] [address] Magnesiumon 10-03-2023 Magnesium [Mass/Vol] 3.2 mg/dL High 1.6 - 2 .3 mg/dL [facility] Magnesium [Mass/Vol] 4.0 mg/dL High 1.6 - 2 .3 mg/dL [facility] No Panel Informationon 10-03 Interpretation and review of laboratory results Abnormal [facility] Interpretation and review of laboratory results Abnormal [facility] Interpretation and review of laboratory results Abnormal [facility] Blood Expiration Date [id number] S [facility] Dispense Status Transfused [facility] Product Blood Type 5100 [facility] Unit ABO O [facility] Unit RH Positive [facility] Unit Volume 300 mL [facility] Op Noteon 10-03-2023 Op Note Cardiothoracic Surge ry Brief Operative Report Pre-operative Diagnosis: cad Post-operative Diagnosis: cad Procedure: Cabg X 3 UAMH-ADH-JWL(distal to calcified zone); AO-PL-PDA W/ RSVG EVH left leg Surgeon: Kit Beverly MD, FACS Transmission Assembler(s): [x] Rashawn Medina [] Luis Forman [] Lali Dotson [] Lali Lopze [] Other Anesthesia: General Estimated blood loss: 500 Total IV fluids: See anesthesia and perfusion record Blood Transfusion?: n Drains: 3 Specimens: 0 Complications: See full OP note Condition: stable Prophylactic Antibiotics: Yes 1st or 2nd generation cephalosporin given (or other antibiotic in the event of an allergy) within 1 hour of surgical incision (two hours if receiving Vancomycin or flouroquinolone) If NO, indication reason why: [] Patient on continuous antibiotics for documented preoperative infection [] Other: The STS Risk Calculator score was calculated and discussed with the patient/family prior to surgery. Yes: [x] No: [] Not a risk calculated procedure [] Emergent or Emergent/Salvage Used of CRIS: Yes/ No due to: [] Subclavian stenosis [] Emergent or Emergent/Salvage [] Prior cardiothoracic surgery [] Prior mediastinal radiation [] No bypassable LAD disease, LAD not needed/bypassed: (This can include clean LAD, diffusely diseased LAD or other condition resulting in the LAD not being bypassed). Beta-edinson within 24 hours prior to surgical incision: [x] Yes - please see documentation in EMR [] No [] Allergy [] Heart block [] COPD [] Hypotension BP: [] Bradycardia HR: See dictated operative report for full details. Electronically signed by @MEMDNR@ on @TDNR@ at @NOWNR@ [facility] Op Note Date of surgery 10/03/2023 Cardiothoracic surgeon Kit Beverly MD FACS Preoperative diagnosis: CAD Postoperative diagnosis: CAD Procedure: CABG x 3 Lozo-ape-rdq beyond calcified area, ao-pl-pda seq EVH left leg Complications: None Anesthesia: GETA Indications for procedure the patient is a 67-year-old male referred from [facility] with unstable angina and severe two-vessel CAD. Procedure detail: The patient was positioned supine on the operating room table the patient was prepped and draped in usual sterile fashion a right IJ cordis [place]-Marta catheter and radial arterial line were placed by the anesthesiologist. The patient was prepped and draped in usual sterile fashion a portion of the greater saphenous vein was harvested from the left leg using EVH. The vein was small in diameter although usable for bypass the branches were clipped with vascular clips and the aneurysmal areas were addressed with vascular clips. The leg incision was closed with Vicryl Monocryl a median sternotomy was performed the SCHWAB was dissected as a pedicle graft from the left anterior chest wall the patient was systemically heparinized with 3.5 mg/kg intravenous heparin. After 4 minutes elapsed since heparinization the SCHWAB pedicle was ligated and divided in fashion for bypass. Pericardium was incised aortic and right atrial pursestrings were placed after the ACT was verified the patient was cannulated placed on cardiopulmonary bypass cooled to 34 ?C antegrade and retrograde blood cardioplegia were delivered per protocol using a warm induction cold maintenance and warm reperfusion algorithm. I also perfused antegrade through the vein graft after each distal and used a single clamp technique on the aorta and a distal proximal logic for grafting. Attention was initially directed to grafting the PDA the right coronary artery appeared very calcified although the PDA and PL branches were disease-free but rather small. The PDA measured about 1.5 mm in diameter and the PL measured approximately 1 mm in diameter consistentwith a thready appearance on the cath. These were done in a sequential fashion with 7-0 Prolene's the proximal was then done with a 6-0 Prolene the vein graft and ascending aorta were de-aired in the usual fashion next the SCHWAB was grafted to the mid LAD beyond the calcified area which likely coincided with the stenosis evident on cath. The LAD measured about 2 mm in diameter and was free of disease at the anastomotic site beyond the site of anastomosis there was no palpable plaque. SCHWAB to LAD was done with a 7-0 Prolene having completed the grafts the hotshot cardioplegia dosage was delivered and the cross-clamp removed the patient had been warmed to 37 degrees the lungs were reinflated. The hotshot cardioplegia dosage was delivered and the cross-clamp removed about 5 minutes after cross-clamp removal the patient did require 1 defibrillation likely secondary to pacing the heart which responded well to defibrillation and did not recur the patient also developed rapid atrial fibrillation which responded to a dose of amiodarone. A temporary pacing wire was placed to the base of the right ventricle with a ground Abdominal wall both pleural cavities were entered Tunde drains were placed in the left pleural cavity mediastinum and right pleural cavity. Having successfully weaned from bypass protamine was given to reverse the systemic effects of heparin and the patient was decannulated after hemostasis was assured, which required a platelet transfusion, vancomycin paste was applied to the sternal edges and the sternum was closed with stainless to wire in interrupted fashion presternal fascia was closed with a running #1 PDS Vicryl Monocryl was used to close soft tissues and skin respectively in layers in a Dermabond dressing applied. The patient was transferred stable intubated in sinus rhythm to ICU [facility] PHOSPHORUSon 10-03-2023 Phosphate [Mass/Vol] 3.3 mg/dL Normal 2.5-4.5 [facility] Comment on above: Performed By: #### L AB15, [id number], [id number] #### Assistant Chief Nursing Officer: MEME MA ([id number]) [facility] [address] [place] [address] POCT glucose meteron 023 Glucose [Mass/Vol] 146 mg/dL High 70 - 100 mg/dL [facility] Interpretation and review of laboratory results Abnormal [facility] Glucose [Mass/Vol] 156 mg/dL High 70 - 100 mg/dL [facility] Interpretation and review of laboratory results Abnormal [facility] Glucose [Mass/Vol] 161 mg/dL High 70 - 100 mg/dL [facility] Glucose [Mass/Vol] 147 mg/dL High 70 - 100 mg/dL [facility] Glucose [Mass/Vol] 127 mg/dL High 70 - 100 mg/dL [facility] Glucose [Mass/Vol] 159 mg/dL High 70 - 100 mg/dL [facility] Interpretation and review of laboratory results Abnormal [facility] Glucose [Mass/Vol] 160 mg/dL High 70 - 100 mg/dL [facility] Interpretation and review of laboratory results Abnormal [facility] Glucose [Mass/Vol] 145 mg/dL High 70 - 100 mg/dL [facility] Interpretation and review of laboratory results Abnormal [facility] Glucose [Mass/Vol] 112 mg/dL High 70 - 100 mg/dL [facility] Interpretation and review of laboratory results Abnormal [facility] PROTIME AND APTTon 3 aPTT Coag (Bld) [Time] 28.3 s Normal 20.0-30.5 [facility] Comment on above: Performed By: #### L [id number] #### Assistant Chief Nursing Officer: MEME MA ([id number]) [facility] [address] [place] [address] INR Coag (PPP) [Relative time] 1.2 {INR} High 0.9-1.1 [facility] Comment on above: Result Comment: Hector mmended Anticoagulant Therapy: SEE BELOW ----- INR of 2.0 - 3.0 : - Prophylaxis of Venous Thrombosis (high-risk surgery) - Treatment of Venous Thrombosis - Treatment of Pulmonary Embolism (Includes tissue heart valves, Acute Myocardial Infarction to prevent systemic embolism, Valvular Heart Disease, and Atrial Fibrillation) ----- INR of 2.5 - 3.5 : - Mechanical Prosthetic Valves (high risk) - If oral anticoagulant therapy is used to prevent Myocardial Infarction Performed By: #### Eugenia [id number] #### Assistant Chief Nursing Officer: MEME MA ([id number]) [facility]) [address] [place] [address] PT Coag (PPP) [Time] 12.3 s High 9.0-12.0 [facility] Comment on above: Performed By: #### Eugenia [id number] #### Assistant Chief Nursing Officer: MEME MA ([id number]) [facility]) [address] [place] [address] aPTT Coag (Bld) [Time] 29.0 s Normal 20.0-30.5 [facility] Comment on above: Performed By: #### L [id number], [id number] ####Assistant Chief Nursing Officer: MEME MA ([id number])[facility] ([facility])[address] [place] [address] INR Coag (PPP) [Relative time] 1.3 {INR} High 0.9-1.1 [facility] Comment on above: Result Comment: Hector mmended Anticoagulant Therapy: SEE BELOW ----- INR of 2.0 - 3.0 : - Prophylaxis of Venous Thrombosis (high-risk surgery) - Treatment of Venous Thrombosis - Treatment of Pulmonary Embolism (Includes tissue heart valves, Acute Myocardial Infarction to prevent systemic embolism, Valvular Heart Disease, and Atrial Fibrillation) ----- INR of 2.5 - 3.5 : - Mechanical Prosthetic Valves (high risk) - If oral anticoagulant therapy is used to prevent Myocardial Infarction Performed By: #### L [id number], [id number] ####Assistant Chief Nursing Officer: MEME MA ([id number])[facility] ([facility])[address] [place] [address] PT Coag (PPP) [Time] 13.7 s High 9.0-12.0 [facility] Comment on above: Performed By: #### L [id number], [id number] ####Assistant Chief Nursing Officer: MEME MA ([id number])[facility] ([facility] PROTIME/INR & PTTon 10-03-20 23 aPTT Coag (PPP) [Time] 28.3 s 20.0 - 30.5 s [facility] INR Coag (PPP) [Relative time] 1.2 {INR} High 0.9 - 1.1 [facility] Interpretation and review of laboratory results Abnormal [facility] PT Coag (Bld) [Time] 12.3 s High 9.0 - 1 2.0 s [facility] aPTT Coag (PPP) [Time] 29.0 s 20.0 - 30.5 s [facility] INR Coag (PPP) [Relative time] 1.3 {INR} High 0.9 - 1.1 [facility] Interpretation and review of laboratory results Abnormal [facility] PT Coag (Bld) [Time] 13.7 s High 9.0 - 1 2.0 s [facility] Phosphate [Moles/Vol]on Interpretation and review of laboratory results Normal [facility] Phosphate [Mass/Vol] 3.3 mg/dL 2.5 - 4 .5 mg/dL [facility] Prepare platelets: 2 Unitson 10-03-2023 PRODUCT CODE [id number] [facility] PRODUCT CODE [id number] [facility] Unit Number [id number] [facility] Unit Number [id number] [facility] alth [facility] Progress Noteon 10-03-2023 Progress Note Pt is ready for surgery this am. Family at bedside pt rested well overnight. Family would like to have a room for the son to work in during the surgery I put them im the family counseling room. Normal [facility] Heart TransesophagealOrde red By: Argenis Awad on 10-03-2023 MR VTI 188.8 cm [facility] [place] Work Phone: MV [employer]quist [employer] 28 cm/s [facility] [place] Work Phone: [facility] PISA [facility] [place] Work Phone: [facility] [place] Work Phone: US Heart Transesophagealon 1 12-03-2022 CV CPACS HEMO XR CHEST 1 VIEWon 10-03-2023 XR CHEST 1 VIEW Patient Name: JADON REYES : 1955 [facility]#: [id number] Exam Date/Time: 10/03/2023 14:19 Procedure: XR CHEST 1 VIEW Ordering Provider: WARREN JENNIFER Reason For Exam: Post op open heart surgery --------ADDENDUM #1 -------- After discussion with clinical team, there is a right basilar chest tube mimicking the right diaphragm. Lung markings are noted underneath this. No free air under the diaphragm. COMMUNICATION: Notification of this addendum was made to JACQUELIN WARREN via phone call on 10/03/2023 2:54 PM EST. Report Dictated on Electronically Signed By: Curtis Robles MD Electronically Signed Date/Time: 10/03/2023 2:57 PM EST --------ORIGINAL REPORT -------- EXAMINATION: CHEST RADIOGRAPH (SINGLE VIEW AP OR PA) Clinical History: Post op open heart surgery Comparison: Chest radiograph 09/29/2023 RESULT: See impression IMPRESSION: Lines, tubes, and devices: Right IJ approach pulmonary artery catheter with tip in the pulmonary outflow tract. Endotracheal tube terminates about 6 cm above the jaya. NG/OG tube extends below the diaphragm with tip in expected location of the proximal stomach. Multiple lines project over and partially obscure the chest. Mediastinal drain and left basilar chest tube. Possible right basilar chest tube. Lungs and pleura: Small right pneumothorax with pleural separation measuring approximately 7 mm. Lucency below the right hemidiaphragm suggests free intra-abdominal air of uncertain etiology. This can be further assessed with upright or decubitus views of the abdomen. CT may also be considered if clinically warranted. No sizable pleural effusion or left pneumothorax. Cardiomediastinal silhouette: Stable cardiomediastinal silhouette.Status post median sternotomy and mediastinal surgical clips. Epigastric surgical clips. Other: Degenerative changes of the spine and partially assessed shoulders oral rib fracture deformity of the posterior lateral right 4th rib is indeterminate though in retrospect unchanged from prior exam. CRITICAL TEST RESULT COMMUNICATION: Notification of these findings was made to JACQUELIN WARREN via phone call on 10/03/2023 2:45 PM EST. Report Dictated on Electronically Signed By: Curtis Robles MD Electronically Signed Date/Time: 10/03/2023 2:48 PM EST [facility] 1955 [id number] Exam Date/Time: 10/03/2023 14:19 Procedure: XR CHEST 1 VIEW Ordering Provider: WARREN JENNIFER Reason For Exam: Post op open heart surgery EXAMINATION: CHEST RADIOGRAPH (SINGLE VIEW AP OR PA) Clinical History: Post op open heart surgery Comparison: Chest radiograph 09/29/2023 RESULT: See impression IMPRESSION: Lines, tubes, and devices: Right IJ approach pulmonary artery catheter with tip in the pulmonary outflow tract. Endotracheal tube terminates about 6 cm above the jaya. NG/OG tube extends below the diaphragm with tip in expected location of the proximal stomach. Multiple lines project over and partially obscure the chest. Mediastinal drain and left basilar chest tube. Possible right basilar chest tube. Lungs and pleura: Small right pneumothorax with pleural separation measuring approximately 7 mm. Lucency below the right hemidiaphragm suggests free intra-abdominal air of uncertain etiology. This can be further assessed with upright or decubitus views of the abdomen. CT may also be considered if clinically warranted. No sizable pleural effusion or left pneumothorax. Cardiomediastinal silhouette: Stable cardiomediastinal silhouette.Status post median sternotomy and mediastinal surgical clips. Epigastric surgical clips. Other: Degenerative changes of the spine and partially assessed shoulders oral rib fracture deformity of the posterior lateral right 4th rib is indeterminate though in retrospect unchanged from prior exam. CRITICAL TEST RESULT COMMUNICATION: Notification of these findings was made to JACQUELIN WARREN via phone call on 10/03/2023 2:45 PM EST. Report Dictated on Electronically Signed By: Curtis Robles MD Electronically Signed Date/Time: 10/03/2023 2:48 PM EST [facility] XR Chest Single viewon 10-03 [facility] RADIOLOGY [facility] RADIOLOGY [facility] Radiology Study observation (narrative) Gregorio rajput XR Chest Single viewOrdered By: Curtis Robles on 10-03-2023 [facility] Work Phone: [phone] 10-02-2023 [id number] Narrative Writer following case for Discharge Needs. [facility] CARECOORDon 10-02-2023 CARECOORD Patient requested in fo on absentee voting. optical goods worker met with patient who is from [facility]. Patient could be given form but family would need to take application in to [facility] Board [employer]lections and then [facility], and again return to [facility] to hand ballot in. Patient declined. Due to the complicated logistics for his family. [facility] Progress Noteon 10-02-2023 Progress Note Subjective R op teaching provided to the patient and family Will hold coreg Will give remeron for sleep Assessment/Plan Principal Problem: CAD in [place] artery Normal [facility] BASIC METABOLIC PANELon Anion gap [Moles/Vol] 11 mmol/L Normal 3-13 [facility] Comment on above: Performed By: #### L AB15 ####Assistant Chief Nursing Officer: MEME MA ([id number])[facility] ([facility])[address] [place] [address] [place] Calcium [Mass/Vol] 8.6 mg/dL Normal 8.4-10.4 [facility] Comment on above: Performed By: #### L AB15 ####Assistant Chief Nursing Officer: MEME MA ([id number])[facility] ([facility])[address] [place] [address] Chloride [Moles/Vol] 105 mmol/L Normal 98-107 [facility] Comment on above: Performed By: #### L AB15 ####Assistant Chief Nursing Officer: MEME MA ([id number])[facility] ([facility])[address] [place] [address] CO2 [Moles/Vol] 21 mmol/L Low 22-30 [facility] Comment on above: Performed By: #### L AB15 ####Assistant Chief Nursing Officer: MEME MA ([phone])[facility])[address] [place] [address] Creatinine [Mass/Vol] 1.23 mg/dL Normal 0.66-1.25 [facility] Comment on above: Performed By: #### L AB15 ####Assistant Chief Nursing Officer: MEME MA ([id number])[facility])[address] [place] [address] GLOMERULAR FILTRATION RATE ML/MIN/1.73 SQ M.PREDICTED 63.9 mL/min/1.73m*2 Normal >60.0 [facility] Comment on above: Result Comment: Calc ulation based on the Chronic Kidney Disease Epidemiology Collaboration (CKD-EPI) equation refit without adjustment for race Performed By: #### L AB15 ####Assistant Chief Nursing Officer: MEME MA ([phone])[facility])[address] [place] [address] Glucose [Mass/Vol] 121 mg/dL High 70-100 [facility] Comment on above: Performed By: #### L AB15 ####Assistant Chief Nursing Officer: MEME MA ([phone])[facility])[address] [place] [address] Potassium [Moles/Vol] 4.0 mmol/L Normal 3.5-5.1 [facility] Comment on above: Performed By: #### L AB15 ####Assistant Chief Nursing Officer: MEME MA ([id number])[facility])[address] [place] [address] Sodium [Moles/Vol] 136 mmol/L Normal 135-145 [facility] Comment on above: Performed By: #### L AB15 ####Assistant Chief Nursing Officer: MEME [id number])[facility])[address] [place] [address] Urea nitrogen [Mass/Vol] 23 mg/dL High 9-20 [facility] Comment on above: Performed By: #### L AB15 ####Assistant Chief Nursing Officer: MEME MA ([id number])[facility] [place] [address] Basic metabolic 1998 panelon 10-01-2023 Anion gap [Moles/Vol] 11 mmol/L 3 - 13 mmol/L [facility] Calcium [Mass/Vol] 8.6 mg/dL 8.4 - 10. 4 mg/dL [facility] Chloride [Moles/Vol] 105 mmol/L 98 - 10 7 mmol/L [facility] CO2 [Moles/Vol] 21 mmol/L Low 22 - 30 mmol/L [facility] Creatinine [Mass/Vol] 1.23 mg/dL 0.66 - 1.25 mg/dL [facility] GFR/1.73 sq M.predicted MDRD (S/P/Bld) [Vol rate/Area] 63.9 mL/min/{1.73_m2} - PINF [facility] Glucose [Mass/Vol] 121 mg/dL High 70 - 100 mg/dL [facility] Interpretation and review of laboratory results Abnormal [facility] Potassium [Moles/Vol] 4.0 mmol/L 3.5 - 5.1 mmol/L [facility] Sodium [Moles/Vol] 136 mmol/L 135 - 145 mmol/L [facility] Urea nitrogen [Mass/Vol] 23 mg/dL High 9 - 20 mg/dL [facility] CBC W Auto Differential pane l (Bld)Ordered By: Armin Tucker on 10-01-2023 Basophils (Bld) [#/Vol] 0.0 10*3/uL 0.0 - 0.2 10*3/uL [facility] Basophils/100 WBC (Bld) 0.9 % 0.0 - 2.0 % [facility] Eosinophils (Bld) [#/Vol] 0.2 10*3/uL 0. 0 - 0.5 10*3/uL [facility] Eosinophils/100 WBC (Bld) 4.1 % 1.0 - 6.0 % [facility] Erythrocyte distribution width (RBC) [Ratio] 14.2 % 11.5 - 14.5 % [facility] Hematocrit (Bld) [Volume fraction] 41.2 % 40.0 - 52.0 % [facility] Hemoglobin (Bld) [Mass/Vol] 13.8 g/dL 13.0 - 18.0 g/dL [facility] Interpretation and review of laboratory results Abnormal [facility] th Lymphocytes (Bld) [#/Vol] 1.6 10*3/uL 1. 0 - 4.3 10*3/uL [facility] Lymphocytes/100 WBC (Bld) 34.2 % 20 .0 - 40.0 % [facility] MCH (RBC) [Entitic mass] 30.6 pg 26. 0 - 34.0 pg [facility] MCHC (RBC) [Mass/Vol] 33.6 % 32.0 - 36.0 % [facility] MCV (RBC) [Entitic vol] 91.2 fL 80.0 - 98.0 fL [facility] Monocytes (Bld) [#/Vol] 0.5 10*3/uL 0.0 - 0.8 10*3/uL [facility] Monocytes/100 WBC (Bld) 11.1 % High 2.0 - 10.0 % [facility] Neutrophils (Bld) [#/Vol] 2.3 10*3/uL 1. 8 - 7.0 10*3/uL [facility] Neutrophils/100 WBC (Bld) 49.7 % 40 .0 - 80.0 % [facility] Nucleated RBC/100 WBC (Bld) [Ratio] 0.1 % [facility] Platelet mean volume (Bld) [Entitic vol] 8.2 fL 7.4 - 12.4 fL [facility] Platelets (Bld) [#/Vol] 109 10*3/uL Low 140 - 440 10*3/uL [facility] RBC (Bld) [#/Vol] 4.51 10*6/uL 4.40 - 5.9 0 10*6/uL [facility] WBC (Bld) [#/Vol] 4.6 10*3/uL 3.6 - 10.7 10*3/uL [facility] CBC WITH AUTO DIFFERENTIALon 10-01-2023 Basophils (Bld) [#/Vol] 0.0 10*3/uL Normal 0.0-0.2 [facility] Comment on above: Performed By: #### L [id number] ####Assistant Chief Nursing Officer: MEME MA ([phone])[facility])[address] [place] [address] Basophils/100 WBC (Bld) 0.9 % Normal 0.0-2.0 [facility] Comment on above: Performed By: #### L [id number] ####Assistant Chief Nursing Officer: MEME MA ([id number])[facility] ([facility])[address] [place] [address] Eosinophils (Bld) [#/Vol] 0.2 10*3/uL Normal 0.0-0.5 [facility] Comment on above: Performed By: #### L [id number] ####Assistant Chief Nursing Officer: MEME MA ([id number])[facility])[address] [place] [address] Eosinophils/100 WBC (Bld) 4.1 % Normal 1.0-6.0 [facility] Comment on above: Performed By: #### L [id number] ####Assistant Chief Nursing Officer: MEME MA ([id number])[facility])[address] [place] [address] Erythrocyte distribution width (RBC) [Ratio] 14.2 % Normal 11.5-14.5 [facility] Comment on above: Performed By: #### L [id number] ####Assistant Chief Nursing Officer: MEME MA ([id number])[facility])[address] [place] [address] ERYTHROCYTE MEAN CORPUSCULAR HEMOGLOBIN CONCENTRATION (G/DL) BY AUTOMATED 33.6 % Normal 32.0-36.0 [facility] Comment on above: Performed By: #### L [id number] ####Assistant Chief Nursing Officer: MEME MA ([id number])[facility])[address] [place] [address] Hematocrit (Bld) [Volume fraction] 41.2 % Normal 40.0-52.0 [facility] Comment on above: Performed By: #### L [id number] ####Assistant Chief Nursing Officer: MEME MA ([id number])[address] Hemoglobin (Bld) [Mass/Vol] 13.8 g/dL Normal 13.0-18.0 [facility] Comment on above: Performed By: #### L [id number] ####Assistant Chief Nursing Officer: MEME MA ([id number])[facility])[address] [place] [address] Lymphocytes (Bld) [#/Vol] 1.6 10*3/uL Normal 1.0-4.3 [facility] Comment on above: Performed By: #### L [id number] ####Assistant Chief Nursing Officer: MEME MA ([id number])[address] Lymphocytes/100 WBC (Bld) 34.2 % Normal 20.0-40.0 [facility] Comment on above: Performed By: #### L [id number] ####Assistant Chief Nursing Officer: MEME MA ([id number])[address] MCH (RBC) [Entitic mass] 30.6 pg Normal 26.0-34.0 [facility] Comment on above: Performed By: #### L [id number] ####Assistant Chief Nursing Officer: MEME MA ([id number])[facility])[address] [place] [address] MCV (RBC) [Entitic vol] 91.2 fL Normal 80.0-98.0 [facility] Comment on above: Performed By: #### L [id number] ####Assistant Chief Nursing Officer: MEME MA ([id number])[address] Monocytes (Bld) [#/Vol] 0.5 10*3/uL Normal 0.0-0.8 [facility] Comment on above: Performed By: #### L [id number] ####Assistant Chief Nursing Officer: MEME MA ([id number])[facility] ([facility])[address] [place] [address] Monocytes/100 WBC (Bld) 11.1 % High 2.0-10.0 [facility] Comment on above: Performed By: #### L [id number] ####Assistant Chief Nursing Officer: MEME MA ([id number])[facility] ([facility])[address] [place] [address] Neutrophils (Bld) [#/Vol] 2.3 10*3/uL Normal 1.8-7.0 [facility] Comment on above: Performed By: #### L [id number] ####Assistant Chief Nursing Officer: MEME MA ([id number])[facility] ([facility])[address] [place] [address] Neutrophils/100 WBC (Bld) 49.7 % Normal 40.0-80.0 [facility] Comment on above: Performed By: #### L [id number] ####Assistant Chief Nursing Officer: MEME MA ([id number])[facility] ([facility])[address] [place] [address] NRBC (PER 100 WBCS) BY AUTOMATED COUNT 0.1 /100 WBCs Normal 0.0-2.0 [facility] Comment on above: Performed By: #### L [id number] ####Assistant Chief Nursing Officer: MEME MA ([id number])[facility] ([facility])[address] [place] [address] Platelet mean volume (Bld) [Entitic vol] 8.2 fL Normal 7.4-12.4 [facility] Comment on above: Performed By: #### L [id number] ####Assistant Chief Nursing Officer: MEME MA ([id number])[facility])[address] [place] [address] Platelets (Bld) [#/Vol] 109 10*3/uL Low 140-440 [facility] Comment on above: Performed By: #### L [id number] ####Assistant Chief Nursing Officer: MEME MA ([id number])[facility] ([facility])[address] [place] [address] RBC (Bld) [#/Vol] 4.51 10*6/uL Normal 4.40-5.90 [facility] Comment on above: Performed By: #### L [id number] ####Assistant Chief Nursing Officer: MEME MA ([id number])[facility])[address] [place] [address] WBC (Bld) [#/Vol] 4.6 10*3/uL Normal 3.6-10.7 [facility] Comment on above: Performed By: #### L [id number] ####Assistant Chief Nursing Officer: MEME MA ([id number])[facility] ([employer])[address] [place] [address] ECG 12 lead one time STATOrd ered By: Ap Shelton on 10-01-2023 Heart rate 69 /min bpm [facility] Work Phone: P [place] 37 degrees [facility] Work Phone: CT Interval 193 ms [facility] Work Phone: QRS [place] -23 degrees [facility] Work Phone: QRSD Interval 94 ms [facility] Work Phone: QT Interval 392 ms [facility] Work Phone: QTC Interval 420 ms [facility] Work Phone: T Wave [place] -14 degrees [facility] Work Phone: [facility] Work Phone: ECG 12 lead one time Ronna 10-01-2023 CV EPIPHANY [facility] [place] ECG 12-LEADon 10-01-2023 ECG 12-LEAD IMPRESSION: Sinus rhythm Probable left atrial enlargement Inferior infarct, old Electronically Signed On 10-01-2023 15:41:11 EST by Ap Shelton Normal [facility] Progress Noteon 10-01-2023 Progress Note Nutrition rescreen completed. Chart reviewed. Patient to be monitored and followed by the diet elevator service technician. JOE Yanes Normal [facility] Progress Note -- Attestation signed by Ap Shelton MD at 10/01/2023 1:09 PM I, Dr. Ap Shelton, saw and evaluated the patient 10/01/2023. I personally obtained the galarza and critical portions of the history and physical exam. I reviewed the chart and discussed the patient with the resident/fellow. I agree with the resident's and/or fellow's medical decision making and have edited the note to reflect my findings and my assessment and plan. Doing well, ambulating in the halls, no chest pain. Plan CABG Monday. [facility] Cardiovascular Medicine Interventional Cardiology Progress Note Today's Date: 10/01/2023 10:00 AM PatientName: Jadon Reyes Date of Admission: 09/29/2023 6:59 AM Patient's Age: 67 y.o., 1955 Primary Care Physician: JUAN SOUSA MD Subjective: No acute issues overnight. Resting comfortably in bed and denies having any chest pain or shortness of breath at rest. Allergies: Lisinopril Current Medications: aspirin, 81 mg, Oral, Daily atorvastatin, 80 mg, Oral, Daily carvedilol, 6.25 mg, Oral, BID WC enoxaparin, 40 mg, SubCUTAneous, Daily influenza, 0.5 mL, IntraMUSCular, Once latanoprost, 1 drop, Both Eyes, Nightly pantoprazole, 40 mg, Oral, q AM sodium chloride 0.9%, 5-40 mL, IntraVENous, q12h Infusions: nitroglycerin, 5-200 mcg/min Physical Exam: VITAL SIGNS: Vitals: 10/01/23 0400 10/01/23 0700 10/01/23 0800 10/01/23 0819 BP: 137/80 125/79 BP Location: Right arm Right arm Patient Position: Lying Sitting Pulse: 58 54 58 58 Resp: 16 Temp: 36.4 ?C (97.5 ?F) 36.7 ?C (98 ?F) TempSrc: Temporal Temporal SpO2: 99% 96% Weight: Height: Telemetry: Sinus rhythm Intake/Output Summary (Last 24 hours) at 10/01/2023 1000 Last data filed at 10/01/2023 0800 Gross per 24 hour Intake 330 ml Output -- Net 330 ml Wt Readings from Last 3 Encounters: 10/01/23 213 lb 11.2 oz (96.9 kg) General: Resting comfortably and does not appear to be in any acute distress HEENT: Atraumatic, normocephalic, moist mucous membrane. Pupils equal, round and reactive to light. External ears intact. Neck: Supple Lungs: Clear to auscultation bilaterally Heart: Normal S1-S2 Abdomen: Soft, nontender, nondistended Extremities: No edema Neuro: Alert and oriented. No gross focal deficits Psych: Appropriate mood Skin: Normal temperature. No severe rashes or lesions. Data: CBC: Recent Labs 09/29/23 0703 10/01/23 0006 WBC 6.2 4.6 HGB 14.7 13.8 HCT 44.1 41.2 MCV 91.1 91.2 PLT 124* 109* BMP: Recent Labs 09/29/23 0703 10/01/23 0006 NA 137 136 K 4.6 4.0 CL 106 105 CO2 21* 21* BUN 21* 23* CREATININE 1.25 1.23 EGFR 62.7 63.9 Biomarkers: Recent Labs 09/29/23 0703 09/29/23 1253 09/29/232022 TROPONINI <0.012 <0.012 <0.012 PRO-BNP: Recent Labs 09/29/23 07 BNP 482* ABGs: No results found for: PHART, PO2ART, [id number] PT/INR: No results for input(s): INR in the last 72 hours. APTT: Recent Labs 09/29/23 07 APTT 35.9* TSH: Lab Results Component Value Date TSH 2.295 09/29/2023 FASTING LIPID PANEL: No results found for: CHOL No results found for: HDL No results found for: LDLCALC No results found for: TRIG No results found for: CHOLHDL LIVER PROFILE: Results from last 7 days Lab Units 09/29/23 0703 AST U/L 37 ALT U/L 40 Hemoglobin A1C: Lab Results Component Value Date HGBA1C 5.4 09/29/2023 Iron: No results found for: IRON, TIBC, FERRITIN CXR: Vascular US lower extremity vein mapping for bypass bilateral Final Result Vascular US carotid artery duplex bilateral Final Result XR chest 1 view Final Result Lungs clear with no acute cardiopulmonary disease process. Report Dictated on Electronically Signed By: Jose Lawrence MD Electronically Signed Date/Time: 09/29/2023 9:24 AM EDT Last EKG 09/29/23 ECG 12-LEAD (Preliminary) This result has not been signed. Information might be incomplete. Impression Sinus bradycardia Inferior infarct, old Last Echo 09/29/23 TRANSTHORACIC ECHOCARDIOGRAM (TTE) COMPLETE (CONTRAST/BUBBLE/3D PRN) 09/29/2023 2:55 PM (Final) Interpretation Summary Left Ventricle: Left ventricle size is normal. Mildly increased wall thickness. Mass index 2D is 108.5 g/m2. Findings consistent with mild concentric hypertrophy. Normal left ventricular systolic function. EF by 2D Simpsons Biplane is 55%. Normal wall motion. Right Ventricle: Right ventricle size is normal. Normal systolic function. Aorta: Normal sized sinuses of Valsalva. Mildly dilated ascending aorta. Ao ascending diameter is 3.8 cm. No significant valvular abnormalities. Signed by: Remington Rodriguez MD on 09/29/2023 2:55 PM Last Cath No results found for this or any previous (more content not included)... Normal [employer] [facility] ECG 12 lead in a.m.on 2022 Heart rate 59 /min bpm [employer] P [place] 45 degrees [employer] [place] CT Interval 206 ms [employer] [place] QRS [place] -8 degrees [employer] [place] QRSD Interval [facility]val 430 ms [employer] [place] QTC Interval 427 ms [employer] [place] T Wave [place] -16 degrees [employer] CV EPIPHANY [facility] [place] [facility] ECG 12-LEADon 09-30-2023 ECG 12-LEAD IMPRESSION: Sinus bradycardia Inferior infarct, old Electronically Signed On 09-30-2023 20:45:53 EDT by Ap Shelton [facility] Progress Noteon 09-30-2023 Progress Note -- Attestation signed by Ap Shelton MD at 09/30/2023 1:03 PM I, Dr. Ap Shelton, saw and evaluated the patient 09/30/2023. I personally obtained the galarza and critical portions of the history and physical exam. I reviewed the chart and discussed the patient with the resident/fellow. I agree with the resident's and/or fellow's medical decision making and have edited the note to reflect my findings and my assessment and plan. No major events, denies chest pain. Opting for CABG over PCI due to prospect of durability. EF preserved. Ok to discharge home and readmit for CABG if patient prefers, but plan likely CABG early this week. [facility] Cardiovascular Medicine Interventional Cardiology Progress Note Today's Date: 09/30/2023 10:04 AM PatientName: Jadon Reyes Date of Admission: 09/29/2023 6:59 AM Patient's Age: 67 y.o., 1955 Primary Care Physician: JUAN SOUSA MD Subjective: No acute issues overnight. Resting comfortably in bed and denies having any chest pain or shortness of breath at rest. TTE with reported LVEF 55%. Allergies: Lisinopril Current Medications: aspirin, 81 mg, Oral, Daily atorvastatin, 80 mg, Oral, Daily carvedilol, 6.25 mg, Oral, BID WC enoxaparin, 40 mg, SubCUTAneous, Daily influenza, 0.5 mL, IntraMUSCular, Once latanoprost, 1 drop, Both Eyes, Nightly pantoprazole, 40 mg, Oral, q AM sodium chloride 0.9%, 5-40 mL, IntraVENous, q12h Infusions: nitroglycerin, 5-200 mcg/min Physical Exam: VITAL SIGNS: Vitals: 09/30/23 0500 09/30/23 0710 09/30/23 0800 09/30/23 0810 BP: 131/79 123/83 119/68 BP Location: Patient Position: Pulse: 59 67 65 63 Resp: 16 Temp: 36.9 ?C (98.4 ?F) TempSrc: Temporal SpO2: 94% 97% Weight: Height: Telemetry: Sinus rhythm Intake/Output Summary (Last 24 hours) at 09/30/2023 1004 Last data filed at 09/29/2023 1838 Gross per 24 hour Intake 500 ml Output -- Net 500 ml Wt Readings from Last 3 Encounters: 09/29/23 217 lb (98.4 kg) General: Resting comfortably and does not appear to be in any acute distress HEENT: Atraumatic, normocephalic, moist mucous membrane. Pupils equal, round and reactive to light. External ears intact. Neck: Supple Lungs: Clear to auscultation bilaterally Heart: Normal S1-S2 Abdomen: Soft, nontender, nondistended Extremities: No edema Neuro: Alert and oriented. No gross focal deficits Psych: Appropriate mood Skin: Normal temperature. No severe rashes or lesions. Data: CBC: Recent Labs 09/29/23 0703 WBC 6.2 HGB 14.7 HCT 44.1 MCV 91.1 PLT 124* BMP: Recent Labs 09/29/23 07 NA 137 K 4.6 CL 106 CO2 21* BUN 21* CREATININE 1.25 EGFR 62.7 Biomarkers: Recent Labs 09/29/23 0703 09/29/23 1253 09/29/232022 TROPONINI <0.012 <0.012 <0.012 PRO-BNP: Recent Labs 09/29/23 07 BNP 482* ABGs: No results found for: PHART, PO2ART, QNN2WBS PT/INR: No results for input(s): INR in the last 72 hours. APTT: Recent Labs 09/29/23704 APTT 35.9* TSH: Lab Results Component Value Date TSH 2.295 09/29/2023 FASTING LIPID PANEL: No results found for: CHOL No results found for: HDL No results found for: LDLCALC No results found for: TRIG No results found for: CHOLHDL LIVER PROFILE: Results from last 7 days Lab Units 09/29/23 0703 AST U/L 37 ALT U/L 40 Hemoglobin A1C: Lab Results Component Value Date HGBA1C 5.4 09/29/2023 Iron: No results found for: IRON, TIBC, FERRITIN CXR: Vascular US lower extremity vein mapping for bypass bilateral Final Result Vascular US carotid artery duplex bilateral Final Result XR chest 1 view Final Result Lungs clear with no acute cardiopulmonary disease process. Report Dictated on Electronically Signed By: Jose Lawrence MD Electronically Signed Date/Time: 09/29/2023 9:24 AM EDT Last EKG 09/29/23 ECG 12-LEAD (Preliminary) This result has not been signed. Information might be incomplete. Impression Sinus bradycardia Inferior infarct, old Last Echo 09/29/23 TRANSTHORACIC ECHOCARDIOGRAM (TTE) COMPLETE (CONTRAST/BUBBLE/3D PRN) 09/29/2023 2:55 PM (Final) Interpretation Summary Left Ventricle: Left ventricle size is normal. Mildly increased wall thickness. Mass index 2D is 108.5 g/m2. Findings consistent with mild concentric hypertrophy. Normal left ventricular systolic function. EF by 2D Simpsons Biplane is 55%. Normal wall motion. Right Ventricle: Right ventricle size is normal. Normal systolic function. Aorta: Normal sized sinuses of Valsalva. Mildly dilated ascending aorta. Ao ascending diameter is 3.8 cm. No significant valvular abnormalities. Signed by: Remington Rodriguez MD on 09/29/2023 2:55 PM Last Cath No results found fo (more content not included)... Normal [facility] APTTon 09-29-2023 aPTT Coag (Bld) [Time] 35.9 s High 20.0-30.5 [facility] Comment on above: Result Comment: OTILIA Lion COMMENTS: NOTE: The therapeutic time for Heparin anticoagulation, based on Xa activity inhibition, is an APTT of 46-80 seconds. Performed By: #### L [id number] #### Assistant Chief Nursing Officer: MEME MA ([id number]) [facility] ([facility]) [address] [place] [address] CARECOORDon 09-29-2023 [place] Care Managment Initi al Assessment Date: 09/29/2023 Patient Name: Jadon Reyes : 1955 Patient Information Source of Information: Patient Cognition/Language: WFL - Within Functional Limits Permission given to speak with patient nutrition representative/caregiv er as indicated: Confirmation of Payer with patient/family: Yes Payer Name: [place] Medicare [place]: No Confirmation of Primary Care Physician: Confirmed PCP Name: Dr. Sousa Seen in last 2 years?: Yes Primary Caregiver: Self If assistance needed, confirmed caregiver ready, willing and able to care for patient at discharge: Confirmed with: Living Arrangements Current Residence: House Number of Floors 1 Number of Entry Steps: 5 or more Bed/Bath Levels: Both first floor Facility: Facility Name: Plan to Return: Lives with: Spouse/significant other Support Systems: Spouse/significant other Activities of Daily Living Ambulation: Independent Bathing/Dressing: Independent Elimination/Continence /Toileting: Independent Feeding: Independent Who Assists with Activities of Daily Living: Instrumental Activities of Daily Living Prescription Coverage: Yes Pharmacy Used: [facility] and mail order Medication Management: Mail order Transportation/Shoppin g: Independent Transportation Mode: Car Needs Assistance with Transportation at Discharge: No Meal Preparation: Independent Laundry/Cleaning: Independent Finances/Bill Paying: Independent Communication: Independent Types of Care Services/Equipment Utilized Care Services: Dialysis Type: Durable Medical Equipment: Patient's Goal/Discharge Plan Patient expects to be discharged to: home Discharge Planning Actions: No needs identified, Continue to follow Patient's Choice Rights and [employer] and Collaborative Relationships Disclosed as Indicated for Post-Acute Care: Interdisciplinary Team Engagement: Social Work Referral for: Additional Information: Patient admitted to CTV ICU with multivessel CAD. Spoke with patient at bedside, introduced self and role. Patient from home with , is independent, has PCP and prescription coverage, will have a ride home and TCC to follow medical plan-if CABG will need HHC. Toshia Chery RN Normal [facility] CBC W Auto Differential pane l (Bld)Ordered By: Giselle Macdonald on 09-29-2023 Basophils (Bld) [#/Vol] 0.0 10*3/uL 0.0 - 0.2 10*3/uL [facility] Basophils/100 WBC (Bld) 0.7 % 0.0 - 2.0 % [facility] Eosinophils (Bld) [#/Vol] 0.2 10*3/uL 0. 0 - 0.5 10*3/uL [facility] Eosinophils/100 WBC (Bld) 2.9 % 1.0 - 6.0 % [facility] Erythrocyte distribution width (RBC) [Ratio] 14.1 % 11.5 - 14.5 % [facility] Hematocrit (Bld) [Volume fraction] 44.1 % 40.0 - 52.0 % [facility] Hemoglobin (Bld) [Mass/Vol] 14.7 g/dL 13.0 - 18.0 g/dL [facility] Interpretation and review of laboratory results Abnormal [facility] th Lymphocytes (Bld) [#/Vol] 0.9 10*3/uL Low 1. 0 - 4.3 10*3/uL [facility] Lymphocytes/100 WBC (Bld) 14.1 % Low 20 .0 - 40.0 % [facility] MCH (RBC) [Entitic mass] 30.5 pg 26. 0 - 34.0 pg [facility] MCHC (RBC) [Mass/Vol] 33.5 % 32.0 - 36.0 % [facility] MCV (RBC) [Entitic vol] 91.1 fL 80.0 - 98.0 fL [facility] Monocytes (Bld) [#/Vol] 0.5 10*3/uL 0.0 - 0.8 10*3/uL [facility] Monocytes/100 WBC (Bld) 7.3 % 2.0 - 10.0 % [facility] Neutrophils (Bld) [#/Vol] 4.7 10*3/uL 1. 8 - 7.0 10*3/uL [facility] Neutrophils/100 WBC (Bld) 75.0 % 40 .0 - 80.0 % [facility] Nucleated RBC/100 WBC (Bld) [Ratio] 0.0 % [facility] Platelet mean volume (Bld) [Entitic vol] 8.5 fL 7.4 - 12.4 fL [facility] Platelets (Bld) [#/Vol] 124 10*3/uL Low 140 - 440 10*3/uL [facility] RBC (Bld) [#/Vol] 4.83 10*6/uL 4.40 - 5.9 0 10*6/uL [facility] WBC (Bld) [#/Vol] 6.2 10*3/uL 3.6 - 10.7 10*3/uL [facility] CBC WITH AUTO DIFFERENTIALon 09-29-2023 Basophils (Bld) [#/Vol] 0.0 10*3/uL Normal 0.0-0.2 [facility] Comment on above: Performed By: #### L [id number] #### Assistant Chief Nursing Officer: MEME MA ([id number]) [facility]) [address] [place] [address] Basophils/100 WBC (Bld) 0.7 % Normal 0.0-2.0 [facility] Comment on above: Performed By: #### L [id number] #### Assistant Chief Nursing Officer: MEME MA ([id number]) [facility]) [address] [place] [address] Eosinophils (Bld) [#/Vol] 0.2 10*3/uL Normal 0.0-0.5 [facility] Comment on above: Performed By: #### L [id number] #### Assistant Chief Nursing Officer: MEME MA ([id number]) [facility]) [address] [place] [address] [place] Eosinophils/100 WBC (Bld) 2.9 % Normal 1.0-6.0 [facility] Comment on above: Performed By: #### L [id number] #### Assistant Chief Nursing Officer: MEME MA ([id number]) [facility]) [address] [place] [address] Erythrocyte distribution width (RBC) [Ratio] 14.1 % Normal 11.5-14.5 [facility] Comment on above: Performed By: #### L [id number] #### Assistant Chief Nursing Officer: MEME MA ([id number]) [facility]) [address] [place] [address] ERYTHROCYTE MEAN CORPUSCULAR HEMOGLOBIN CONCENTRATION (G/DL) BY AUTOMATED 33.5 % Normal 32.0-36.0 [facility] Comment on above: Performed By: #### L [id number] #### Assistant Chief Nursing Officer: MEME MA ([id number]) [facility] ([facility]) [address] [place] [address] Hematocrit (Bld) [Volume fraction] 44.1 % Normal 40.0-52.0 [facility] Comment on above: Performed By: #### L [id number] #### Assistant Chief Nursing Officer: MEME MA ([id number]) [facility] ([facility]) [address] [place] [address] Hemoglobin (Bld) [Mass/Vol] 14.7 g/dL Normal 13.0-18.0 [facility] Comment on above: Performed By: #### L [id number] #### Assistant Chief Nursing Officer: MEME MA ([id number]) [facility] ([facility]) [address] [place] [address] Lymphocytes (Bld) [#/Vol] 0.9 10*3/uL Low 1.0-4.3 [facility] Comment on above: Performed By: #### L [id number] #### Assistant Chief Nursing Officer: MEME MA ([id number]) [facility] ([facility]) [address] [place] [address] Lymphocytes/100 WBC (Bld) 14.1 % Low 20.0-40.0 [facility] Comment on above: Performed By: #### L [id number] #### Assistant Chief Nursing Officer: MEME MA ([id number]) [facility]) [address] [place] [address] MCH (RBC) [Entitic mass] 30.5 pg Normal 26.0-34.0 [facility] Comment on above: Performed By: #### L [id number] #### Assistant Chief Nursing Officer: MEME MA ([id number]) [facility] ([facility]) [address] [place] [address] MCV (RBC) [Entitic vol] 91.1 fL Normal 80.0-98.0 [facility] Comment on above: Performed By: #### L [id number] #### Assistant Chief Nursing Officer: MEME MA ([id number]) [facility] [place]) [address] [place] [address] [place] Monocytes (Bld) [#/Vol] 0.5 10*3/uL Normal 0.0-0.8 [facility] Comment on above: Performed By: #### L [id number] #### Assistant Chief Nursing Officer: MEME MA ([id number]) [facility] ([facility] [place]) [address] [place] [address] Monocytes/100 WBC (Bld) 7.3 % Normal 2.0-10.0 [facility] Comment on above: Performed By: #### L [id number] #### Assistant Chief Nursing Officer: MEME MA ([id number]) [facility] ([facility] [place]) [address] [place] [address] [place] Neutrophils (Bld) [#/Vol] 4.7 10*3/uL Normal 1.8-7.0 [facility] Comment on above: Performed By: #### L [id number] #### Assistant Chief Nursing Officer: MEME MA ([id number]) [facility] ([facility] [place]) [address] [place] [address] [place] Neutrophils/100 WBC (Bld) 75.0 % Normal 40.0-80.0 [facility] Comment on above: Performed By: #### L [id number] #### Assistant Chief Nursing Officer: MEME MA ([phone]) [facility]) [address] [place] [address] [place] NRBC (PER 100 WBCS) BY AUTOMATED COUNT 0.0 /100 WBCs Normal 0.0-2.0 [facility] Comment on above: Performed By: #### L [id number] #### Assistant Chief Nursing Officer: MEME MA ([id number]) [facility] ([facility] [place]) [address] [place] [address] Platelet mean volume (Bld) [Entitic vol] 8.5 fL Normal 7.4-12.4 [facility] Comment on above: Performed By: #### L [id number] #### Assistant Chief Nursing Officer: MEME MA ([id number]) [facility] ([facility] [place]) [address] [place] [address] Platelets (Bld) [#/Vol] 124 10*3/uL Low 140-440 [facility] Comment on above: Performed By: #### L [id number] #### Assistant Chief Nursing Officer: MEME MA ([id number]) [facility] ([facility] [place]) [address] [place] [address] RBC (Bld) [#/Vol] 4.83 10*6/uL Normal 4.40-5.90 [facility] Comment on above: Performed By: #### L [id number] #### Assistant Chief Nursing Officer: MEME MA ([id number]) [facility] ([facility] [place]) [address] [place] [address] WBC (Bld) [#/Vol] 6.2 10*3/uL Normal 3.6-10.7 [facility] Comment on above: Performed By: #### L [id number] #### Assistant Chief Nursing Officer: MEME MA ([phone]) [facility] ([facility] [place]) [address] [place] [address] COMPREHENSIVE METABOLIC PANE Justino 09-29-2023 Albumin [Mass/Vol] 4.4 g/dL Normal 3.5-5.0 [facility] Comment on above: Performed By: #### L [id number], [id number], [id number], [id number] ####Assistant Chief Nursing Officer: MEME MA ([id number])[facility] ([facility] [place])[address] [place] [address] ALP [Catalytic activity/Vol] 68 U/L Normal 38-126 [facility] Comment on above: Performed By: #### L [id number], [id number], [id number], [id number] ####Assistant Chief Nursing Officer: MEME MA ([id number])[facility] ([facility] [place])[address] [place] [address] ALT [Catalytic activity/Vol] 40 U/L Normal 0-49 [facility] Comment on above: Performed By: #### L [id number], [id number], [id number], [id number] ####Assistant Chief Nursing Officer: MEME MA ([id number])[facility] ([facility] [place])[address] [place] [address] Anion gap [Moles/Vol] 10 mmol/L Normal 3-13 [facility] Comment on above: Performed By: #### L [id number], [id number], [id number], [id number] ####Assistant Chief Nursing Officer: MEME MA ([id number])[facility] ([facility] [place])[address] [place] [address] AST [Catalytic activity/Vol] 37 U/L Normal 15-46 [facility] Comment on above: Performed By: #### L [id number], [id number], [id number], LAB17 ####Assistant Chief Nursing Officer: MEEM MA ([id number])[facility] ([facility] [place])[address] [place] [address] Bilirubin [Mass/Vol] 1.0 mg/dL Normal 0.2-1.3 [facility] Comment on above: Performed By: #### L [id number], [id number], [id number], LAB17 ####Assistant Chief Nursing Officer: MEME MA ([id number])[facility] ([facility] [place])[address] [place] [address] Calcium [Mass/Vol] 9.2 mg/dL Normal 8.4-10.4 [facility] Comment on above: Performed By: #### L [id number], [id number], [id number], LAB17 ####Assistant Chief Nursing Officer: MEME MA ([id number])[facility])[address] [place] [address] Chloride [Moles/Vol] 106 mmol/L Normal 98-107 [facility] Comment on above: Performed By: #### L [id number], [id number], [id number], LAB17 ####Assistant Chief Nursing Officer: MEME MA ([id number])[facility] ([facility] [place])[address] [place] [address] CO2 [Moles/Vol] 21 mmol/L Low 22-30 [facility] Comment on above: Performed By: #### L [id number], [id number], [id number], LAB17 ####Assistant Chief Nursing Officer: MEME MA ([id number])[facility] ([facility] [place])[address] [place] [address] Creatinine [Mass/Vol] 1.25 mg/dL Normal 0.66-1.25 [facility] Comment on above: Performed By: #### L [id number], [id number], [id number], LAB17 ####Assistant Chief Nursing Officer: MEME MA ([phone])[facility])[address] [place] [address] GLOMERULAR FILTRATION RATE ML/MIN/1.73 SQ M.PREDICTED 62.7 mL/min/1.73m*2 Normal >60.0 [facility] Comment on above: Result Comment: Calc ulation based on the Chronic Kidney Disease Epidemiology Collaboration (CKD-EPI) equation refit without adjustment for race Performed By: #### L [id number], [id number], [id number], LAB17 ####Assistant Chief Nursing Officer: MEME MA ([id number])[facility] ([facility] [place])[address] [place] [address] Glucose [Mass/Vol] 128 mg/dL High 70-100 [facility] Comment on above: Performed By: #### L [id number], [id number], [id number], LAB17 ####Assistant Chief Nursing Officer: MEME MA ([id number])[facility])[address] [place] [address] [place] Potassium [Moles/Vol] 4.6 mmol/L Normal 3.5-5.1 [facility] Comment on above: Performed By: #### L [id number], [id number], [id number], LAB17 ####Assistant Chief Nursing Officer: MEME MA ([id number])[facility] [place] [address] Protein [Mass/Vol] 8.2 g/dL Normal 6.3-8.2 [facility] Comment on above: Performed By: #### L [id number], [id number], [id number], LAB17 ####Assistant Chief Nursing Officer: MEME MA ([id number])[facility] ([facility] [place])[address] [place] [address] Sodium [Moles/Vol] 137 mmol/L Normal 135-145 [facility] Comment on above: Performed By: #### L [id number], [id number], [id number], LAB17 ####Assistant Chief Nursing Officer: MEME MA ([id number])[facility] ([facility] [place])[address] [place] [address] Urea nitrogen [Mass/Vol] 21 mg/dL High 9-20 [facility] Comment on above: Performed By: #### L [id number], [id number], [id number], LAB17 ####Assistant Chief Nursing Officer: MEME MA ([id number])[facility] [place] [address] Comprehensive metabolic 1998 panelon 09-29-2023 Albumin [Mass/Vol] 4.4 g/dL 3.5 - 5.0 g/dL [facility] ALP [Catalytic activity/Vol] 68 U/L 38 - 126 U/L [facility] ALT [Catalytic activity/Vol] 40 U/L 0 - 49 U/L [facility] Anion gap [Moles/Vol] 10 mmol/L 3 - 13 mmol/L [facility] AST [Catalytic activity/Vol] 37 U/L 15 - 46 U/L [facility] Bilirubin [Mass/Vol] 1.0 mg/dL 0.2 - 1 .3 mg/dL [facility] Calcium [Mass/Vol] 9.2 mg/dL 8.4 - 10. 4 mg/dL [facility] Chloride [Moles/Vol] 106 mmol/L 98 - 10 7 mmol/L [facility] CO2 [Moles/Vol] 21 mmol/L Low 22 - 30 mmol/L [facility] Creatinine [Mass/Vol] 1.25 mg/dL 0.66 - 1.25 mg/dL [facility] GFR/1.73 sq M.predicted MDRD (S/P/Bld) [Vol rate/Area] 62.7 mL/min/{1.73_m2} - PINF [facility] Glucose [Mass/Vol] 128 mg/dL High 70 - 100 mg/dL [facility] Interpretation and review of laboratory results Abnormal [facility] Potassium [Moles/Vol] 4.6 mmol/L 3.5 - 5.1 mmol/L [facility] Protein [Mass/Vol] 8.2 g/dL 6.3 - 8.2 g/dL [facility] Sodium [Moles/Vol] 137 mmol/L 135 - 145 mmol/L [facility] Urea nitrogen [Mass/Vol] 21 mg/dL High 9 - 20 mg/dL [facility] Consulton 09-29-2023 Consult -- Attestation signed by Ap Shelton MD at 09/30/2023 12:45 PM I, Dr. Ap Shelton, saw and evaluated the patient 09/29/23. I personally obtained the galarza and critical portions of the history and physical exam. I reviewed the chart and discussed the patient with the resident/fellow. I agree with the resident's and/or fellow's medical decision making and have edited the note to reflect my findings and my assessment and plan. Very pleasant 67-year-old man who was transferred from another facility for evaluation for possible CABG. He has been having some worsening chest pain with exertion for many months and had a nuclear stress test which was positive. Coronary angiography revealed a mid distal RCA occlusion and a 90% mid LAD lesion. The LAD provides fairly robust collaterals to a large posterior lateral branch and PDA from the RCA. He has no left main or proximal LAD disease. Plan was for CABG this admission though the patient and the surgical team are requesting a heart team approach to discuss options for PCI. We had a long discussion about options in this situation. 1 option would be PCI of the mid LAD which would be feasible. This would improve collateral flow to the distal RCA. A second option would be PCI of the LAD and RCA. We did discuss that bypass surgery was reasonable here. He does not have any significant left main or proximal LAD disease so CABG may not provide a mortality benefit in this situation though given his young age and his chronic total occlusion of the RCA it may provide a more durable result than PCI. The patient would like to talk to some of his family members but he is leaning toward CABG. [facility] Interventional Cardiology Consultation Note Today's Date: 09/29/2023, 11:59 AM Patient Name: Jadon Reyes Date of admission: 09/29/2023 6:59 AM Patient's age: 67 y.o., 1955 Admission Dx: CAD in [place] artery [I25.10] Primary Care Physician:JUAN SOUSA MD Referring : ARCHIE Cortez CNP History Obtained From: patient Chief Complaint: Chest pain History of Present Illness: The patient is a 67 y.o. male with past medical history of hypertension, hyperlipidemia, tobacco abuse who presents from outside hospital for evaluation for CABG for multivessel disease. Of note, patient has been having chest pain with exertion going on for few months. He was evaluated with a nuclear stress test in the outside facility which was positive for ischemia. Subsequently he underwent a coronary angiogram yesterday which showed multivessel disease. He was then transferred to [facility] for evaluation for CABG. Patient was seen by CT surgery. Interventional cardiology consulted to discuss percutaneous revascularization option. Patient currently is resting in bed and denies having any chest pain, shortness of breath. No palpitation. No lower extremity swelling. No history of syncope. He quit tobacco 2 weeks ago. Past Medical History: has a past medical history of Glaucoma and Hypertension. Past Surgical History: has no past surgical history on file. Allergies: Lisinopril Medications: Home Medications: Prior to Admission medications Medication Sig Start Date End Date Taking? Authorizing Provider aspirin 81 MG EC tablet Take 81 mg by mouth daily. Historical Provider, latanoprost (Xalatan) 0.005 % ophthalmic solution Administer 1 drop into both eyes Nightly. Historical Provider, losartan-hydroCHLOROth iazide (Hyzaar) 100-12.5 MG tablet Take 1 tablet by mouth daily. Historical Provider, Current Medications: aspirin, 81 mg, Oral, Daily atorvastatin, 80 mg, Oral, Daily carvedilol, 6.25 mg, Oral, BID WC enoxaparin, 40 mg, SubCUTAneous, Daily [START ON 09/30/2023] influenza, 0.5 mL, IntraMUSCular, Once latanoprost, 1 drop, Both Eyes, Nightly pantoprazole, 40 mg, Oral, q AM sodium chloride 0.9%, 5-40 mL, IntraVENous, q12h Infusions: nitroglycerin, 5-200 mcg/min Social History: reports that he has quit smoking. His smoking use included cigars and cigarettes. He has quit using smokeless tobacco. His smokeless tobacco use included chew. He reports current alcohol use. He reports that he does not use drugs. Family History: family history includes Coronary artery disease in his father, maternal grandfather, and paternal grandfather; Heart attack in his maternal grandfather and paternal grandfather. No h/o suddencardiac .None for premature CAD Review of Systems: A 12 point review of system was performed. Pertinent positive and negative mentioned in HPI. Otherwise negative. Physical Examination: VITAL SIGNS: Vitals: 09/29/23 0752 09/29/23 0800 09/29/23 0900 09/29/23 1000 BP: (!) 145/82 136/71 (!) 132/90 136/79 BP (more content not included)... Normal [facility] HEMOGLOBIN A1Con 09-29-2023 Glucose [Mass/Vol] 108 mg/dL Normal [facility] Comment on above: Performed By: #### L [id number] #### Assistant Chief Nursing Officer: MEME MA ([id number]) [facility] ([facility] [place]) [address] [place] [address] HbA1c (Bld) [Mass fraction] 5.4 % Normal <5.7 [facility] Comment on above: Result Comment: Norm al less than 5.7% Prediabetes 5.7% to 6.4% Diabetes 6.5% or higher --HgbA1C levels may not be accurate in patients who have renal disease, received recent blood transfusions, are anemic, or who have dyshemoglobinemia. Performed By: #### L [id number] #### Assistant Chief Nursing Officer: MEME MA ([phone]) [facility] ([facility] [place]) [address] [place] [address] Hemoglobin A1con 09-29-2023 Average glucose Estimated from glycated hemoglobin (Bld) [Mass/Vol] 108 mg/dL [facility] HbA1c (Bld) [Mass fraction] 5.4 % NINF - 5.7 % [facility] NT PRO BNPon 09-29-2023 Natriuretic peptide B (Bld) [Mass/Vol] 482 pg/mL High <20-300 [facility] Comment on above: Performed By: #### L [id number], [id number], [id number], LAB17 ####Assistant Chief Nursing Officer: MEME MA ([id number])[facility] [place] [address] [place] Natriuretic peptide B [Mass/ Vol]on 09-29-2023 Interpretation and review of laboratory results Abnormal [facility] Natriuretic peptide B (Bld) [Mass/Vol] 482 pg/mL High <20 - 300 [facility] Progress Noteon 09-29-[address] Shelton and Mayor discussion with patient will plan for CABG definitively, Will plan to keep him in the hospital with CABG on Monday Normal [facility] THYROID STIMULATING HORMONEo n 09-29-2023 THYROID STIMULATING HORMONE 2.295 uIU/mL Normal 0.465-4.680 [facility] Comment on above: Performed By: #### L [id number], [id number], [id number], LAB17 ####Assistant Chief Nursing Officer: MEME MA ([id number])[facility] ([facility] [place])[address] [place] [address] [place] TROPONIN Ion 09-29-2023 Troponin I.cardiac [Mass/Vol] ng/mL Normal <0.034 [facility] Comment on above: Result Comment: OTILIA R COMMENTS: Patients with high levels of Biotin oral intake (ie >5 mg/day) may have falsely decreased Troponin levels. Performed By: #### L [id number] #### Assistant Chief Nursing Officer: MEME MA ([id number]) [facility]) [address] [place] [address] Troponin I.cardiac [Mass/Vol] ng/mL Normal <0.034 [facility] Comment on above: Result Comment: OTILIA Lion COMMENTS: Patients with high levels of Biotin oral intake (ie >5 mg/day) may have falsely decreased Troponin levels. Performed By: #### L [id number] ####Assistant Chief Nursing Officer: MEME MA ([phone])[facility] ([facility] [place])[address] [place] [address] TROPONIN, WITH SERIAL REFLEX on 09-29-2023 Troponin I.cardiac [Mass/Vol] ng/mL Normal <0.034 [facility] Comment on above: Result Comment: OTILIA Lion COMMENTS: Patients with high levels of Biotin oral intake (ie >5 mg/day) may have falsely decreased Troponin levels. Performed By: #### L [id number], [id number], [id number], LAB17 ####Assistant Chief Nursing Officer: MEME AM ([id number])[facility])[address] [place] [address] TSHon 09-29-2023 TSH Qn 2.295 m[IU]/L [facility] h TSH Qnon 09-29-2023 Interpretation and review of laboratory results Normal [facility] Troponin Ion 09-29-2023 Troponin I.cardiac [Mass/Vol] ng/mL [facility] - [facility] ng/mL [facility] Troponin I.cardiac [Mass/Vol] ng/mL [facility] - 0.034 ng/mL [facility] Troponin I.cardiac [Mass/Vol ]on 09-29-2023 Interpretation and review of laboratory results Normal [facility] Interpretation and review of laboratory results Normal [facility] Interpretation and review of laboratory results Normal [facility] Troponin, with Serial Reflex on 09-29-2023 Troponin I.cardiac [Mass/Vol] ng/mL NINF - 0.034 ng/mL [facility] [place] Heart TransthoracicOrdere d By: Remington Rodriguez on 09-29-2023 Ao Root Index 1.58 cm/m2 [facility] Work Phone: Aortic Root 3.5 cm [facility] Work Phone: Aortic Sinus Valsalva 3.[address] [facility] Work Phone: Aortic Sinus Valsalva Index 1.58 cm/m2 [facility] Work Phone: Ascending Aorta 3.8 cm [facility] Work Phone: Ascending Aorta Index 1.72 cm/m2 [facility] Work Phone: AV Area by Peak Velocity 3.9 cm2 [facility] Work Phone: AV Area by VTI 3.8 cm2 [facility] Work Phone: AV Mean Gradient 2 mmHg [facility] Work Phone: AV Mean Velocity 0.6 m/s [facility] Work Phone: AV Peak Gradient 3 mmHg [facility] Work Phone: AV Peak Velocity 0.9 m/s [facility] Work Phone: AV Velocity Ratio 0.89 [facility] Work Phone: AV VTI 19.2 cm [facility] Work Phone: RHONDA/BSA Peak Velocity 1.8 cm2/m2 [facility] Work Phone: RHONDA/BSA VTI 1.7 cm2/m2 [facility] Work Phone: E/E' Lateral 5.40 [facility] Work Phone: E/E' Ratio (Averaged) 6.[address] [facility] Work Phone: E/E' Septal 7.71 [facility] Work Phone: EF BP 55 % 55 - 100 % [facility] [place] Work Phone: [phone] Fractional Shortening 2D 27 % 28 - 44 % [facility] [place] Work Phone: [phone] Global Longitudinal Strain -14.7 % [facility] Work Phone: [phone] Interpretation and review of laboratory results Abnormal [facility] Work Phone: [phone] IVC Diameter 1.2 cm [facility] [place] Work Phone: [phone] IVSd 1.4 cm Abnormal 0.6 - 1.0 cm [facility] [place] Work Phone: LA Diameter 3.6 cm [facility] [place] Work Phone: [phone] LA Size Index 1.63 cm/m2 [facility] Work Phone: [phone] LA Volume 2C 39 mL 18 - 58 mL [facility] [place] Work Phone: [phone] LA Volume 4C 30 mL 18 - 58 mL [facility] [place] Work Phone: [phone] LA Volume A/L 39 mL [facility] Work Phone: [phone] LA Volume BP 35 mL 18 - 58 mL [facility] [place] Work Phone: [phone] LA Volume Index 2C 18 mL/m2 16 - 34 mL/m2 [facility] [place] Work Phone: [phone] LA Volume Index 4C 14 mL/m2 Abnormal 16 - 34 mL/m2 [facility] Work Phone: [phone] LA Volume Index A/L 18 mL/m2 16 - 34 mL/m2 [facility] [place] Work Phone: [phone] LA Volume Index BP 16 ml/m2 16 - 34 ml/m2 [facility] [place] Work Phone: [phone] LA/AO Root Ratio 1.03 [facility] Work Phone: [phone] LV E' Lateral Velocity 10 cm/s [facility] Work Phone: [phone] LV E' Septal Velocity 7 cm/s [facility] Work Phone: [phone] LV EDV A2C 93 mL [facility] [place] Work Phone: [phone] LV EDV A4C 89 mL [facility] [place] Work Phone: [phone] LV EDV BP 91 mL 67 - 155 mL [facility] Work Phone: LV EDV Index A2C 42 mL/m2 [facility] Work Phone: LV EDV Index A4C 40 mL/m2 [facility] Work Phone: LV EDV Index BP 41 mL/m2 [facility] Work Phone: LV Ejection Fraction A2C 55 % [facility] Work Phone: LV Ejection Fraction A4C 55 % [facility] Work Phone: LV ESV A2C 42 mL [facility] Work Phone: LV ESV A4C 40 mL [facility] Work Phone: LV ESV BP 41 mL 22 - 58 mL [facility] Work Phone: LV ESV Index A2C 19 mL/m2 [facility] al[facility] Work Phone: LV ESV Index A4C 18 mL/m2 [facility] Work Phone: LV ESV Index BP 19 mL/m2 [facility] Work Phone: LV Mass 2D 239.9 g Abnormal 88 - 224 g [facility] Work Phone: LV Mass 2D Index 108.5 g/m2 49 - 115 g/m2 [facility] Work Phone: LV RWT Ratio 0.45 [facility] Work Phone: LVIDd 4.9 cm 4.2 - 5.9 cm [facility] Work Phone: LVIDd Index 2.22 cm/m2 [facility] Work Phone: LVIDs 3.6 cm [facility] Work Phone: LVIDs Index 1.63 cm/m2 [facility] Work Phone: LVOT Area 4.2 cm2 [facility] Work Phone: LVOT Cardiac Output 4.7 liter/mi nut e [facility] Work Phone: LVOT Diameter 2.3 cm [facility] Work Phone: LVOT Mean Gradient 1 mmHg [facility] Work Phone: LVOT Peak Gradient 2 mmHg [facility] Work Phone: LVOT Peak Velocity 0.8 m/s [facility] Work Phone: LVOT Stroke Volume Index 32.3 mL/m2 [facility] Work Phone: LVOT SV 71.4 ml [facility] Work Phone: LVOT VTI 17.2 cm [facility] Work Phone: LVOT:AV VTI Index 0.90 [facility] ealth Work Phone: LVPWd 1.1 cm Abnormal 0.6 - 1.0 cm [facility] Work Phone: MV A Velocity 0.68 m/s [facility] Work Phone: MV E Velocity 0.54 [facility]s [facility]: MV E Wave Deceleration Time 481.0 ms [facility] Work Phone: MV E/A 0.79 [facility] Work Phone: PV Max Velocity 0.8 m/s [facility] Work Phone: PV Peak Gradient 2 mmHg [facility] Work Phone: RA Area 4C 28.8 mL [facility] Work Phone: RV Basal Dimension 2.8 cm [facility] Work Phone: RV Free Wall Peak S' 12 cm/s [facility] Work Phone: RV Longitudinal Dimension 7.4 cm [facility] Work Phone: RV Mid Dimension 2.1 cm [facility] Work Phone: RVOT Mean Gradient 1 mmHg [facility] Work Phone: RVOT Peak Gradient 2 mmHg [facility] Work Phone: RVOT Peak Velocity 0.7 m/s [facility] Work Phone: RVOT VTI 12.4 cm [facility] Work Phone: Sinotubular Junction 2.8 cm [facility] Work Phone: TAPSE 1.8 cm 1.7 cm [facility] Work Phone: [facility] Work Phone: [phone] US Heart Transthoracicon CV CPACS Vascular US carotid artery d uplex bilateralOrdered By: Maddy Jean on 09-29-2023 Left CCA dist EDV 14.6 cm/s [facility] Work Phone: [phone] Left CCA dist PSV 67.2 cm/s [facility] Work Phone: Left CCA mid EDV 15.80 cm/s [facility] Work Phone: [phone] Left CCA mid PSV 78.30 cm/s [facility] Work Phone: [phone] Left CCA prox EDV 16.1 cm/s [facility] Work Phone: [phone] Left CCA prox PSV 97.8 cm/s [facility] Work Phone: Left ECA EDV 8.10 cm/s [facility] Work Phone: Left ECA PSV 87.7 cm/s [facility] Work Phone: Left ICA dist EDV 15.5 cm/s [facility] Work Phone: [phone] Left ICA dist PSV 50.4 cm/s [facility] Work Phone: Left ICA mid EDV 16.6 cm/s [facility] Work Phone: Left ICA mid PSV 58.0 cm/s [facility] Work Phone: [phone] Left ICA prox EDV 14.7 cm/s [facility] Work Phone: Left ICA prox PSV 54.3 cm/s [facility] Work Phone: Left ICA/CCA PSV 0.74 [facility] Work Phone: Left subclavian mid EDV [facility] Work Phone: Left subclavian mid PSV [facility].3 [facility] Work Phone: Left vertebral EDV 11.90 cm/s [facility] Work Phone: Left vertebral PSV 54.3 cm/s [facility] Work Phone: Right CCA dist EDV 16.2 cm/s [facility] Work Phone: Right cca dist PSV 56.5 cm/s [facility] Work Phone: Right CCA mid EDV 16.20 cm/s [facility] Work Phone: Right CCA mid PSV 64.10 cm/s [facility] Work Phone: Right CCA prox EDV 16.2 cm/s [facility] [place] Work Phone: Right CCA prox PSV 75.0 cm/s [facility] Work Phone: Right ECA EDV 6.90 cm/s [facility] Work Phone: Right ECA PSV 101.2 cm/s [facility] Work Phone: Right ICA dist EDV 14.5 cm/s [facility] Work Phone: Right ICA dist PSV 51.3 cm/s [facility] Work Phone: Right ICA mid EDV 22.2 cm/s [facility] Work Phone: Right ICA mid PSV 62.7 cm/s [facility] Work Phone: Right ICA prox EDV 13.8 cm/s [facility] Work Phone: Right ICA prox PSV 42.0 cm/s [facility] Work Phone: Right ICA/CCA PSV 0.98 [facility] Work Phone: Right subclavian mid EDV 0.0 cm/s [facility] Work Phone: Right subclavian mid PSV 116.5 cm/s [facility] Work Phone: Right vertebral EDV 8.60 cm/s [facility] Work Phone: Right vertebral PSV 44.1 cm/s [facility] Work Phone: Vascular US carotid artery d uplex bilateralon 09-29-2023 CV CPACS Vascular US lower extremity vein mapping for bypass bilateralon 09-29-2023 Left GSV at Knee Diam 2.65 mm [facility] Left GSV BK Dist Diam 2.02 mm [facility] Left GSV BK Mid Diam 2.94 mm [facility] Left GSV BK Prox Diam 3.25 mm [facility] Left GSV Junc Diam 5.18 mm [facility] Left GSV Thigh Dist Diam 3.00 mm [facility] Left GSV Thigh Mid Diam 3.28 mm [facility] Left GSV Thigh Prox Diam 3.04 mm [facility] Left SSV Dist Diam 1.07 mm [facility] Left SSV Mid Diam 1.10 mm [facility] Left SSV Prox Diam 2.70 mm [facility] Right GSV at Knee Diam 3.06 mm [facility] Right GSV BK Dist Diam 3.47 mm [facility] Right GSV BK Mid Diam 3.13 mm [facility] Right GSV BK Prox Diam 3.41 mm [facility] Right GSV Junc Diam 4.89 mm [facility] Right GSV Thigh Dist Diam 2.46 mm [facility] Right GSV Thigh Mid Diam 3.00 mm [facility] Right GSV Thigh Prox Diam 2.79 mm [facility] Right SSV Dist Diam 2.05 mm [facility] Right SSV Mid Diam 1.48 mm [facility] Right SSV Prox Diam 2.64 mm [facility] CV CPACS XR CHEST 1 VIEWon 09-29-2023 XR CHEST 1 VIEW Patient Name: JADON REYES : 1955 [facility]#: [id number] Exam Date/Time: 09/29/2023 08:13 Procedure: XR CHEST 1 VIEW Ordering Provider: WARREN JENNIFER Reason For Exam: preop cabg CLINICAL INDICATION: preop cabg COMPARISON: None TECHNIQUE: Single portable AP radiograph of the chest. FINDINGS: LUNGS/PLEURA:Clear with no acute infiltrate or effusion. No pneumothorax. The trachea is midline. MEDIASTINUM:Heart size and mediastinal contours are normal. VASCULARITY: Normal BONES:Unremarkable IMPRESSION: Lungs clear with no acute cardiopulmonary disease process. Report Dictated on Electronically Signed By: Jose Lawrence MD Electronically Signed Date/Time: 09/29/2023 9:24 AM EDT Normal [facility] XR Chest Single viewon 09-29 [facility] RADIOLOGY [facility] Radiology Study observation (narrative) [facility] XR Chest Single viewOrdered By: Tati Lawrecne on 09-29-2023 [facility] Work Phone: aPTT Coag (Bld) [Time]on aPTT Coag (PPP) [Time] 35.9 s High 20.0 - 30.5 s [facility] Interpretation and review of laboratory results Abnormal [facility] Basophil percentageOrdered B y: Edward Smith on 09-28-2023 Chloride [Moles/Vol] 111 mmol/L 98-107 [facility] Glucose [Mass/Vol] 122 mg/dL 74-106 [facility] Comment on above: Fasting Glucose resu lt from 100 to 125 mg/dL suggests IMPAIRED HOMEOSTASIS per A.D.A. criteria. Potassium [Moles/Vol] 4.0 mmol/L 3.5-5.1 [facility] Sodium [Moles/Vol] 139 mmol/L 136-145 [facility] Laboratory - Chemistry and C hemistry - challengeOrdered By: Edward Smith on 09-28-2023 CO2 [Moles/Vol] 24.0 mmol/L 21.0-32.0 [facility] Urea nitrogen/Creatinine [Mass ratio] 16.4 mg/mg 10-20 [facility] Laboratory - CoagulationOrde red By: Catrina Merino on 09-28-2023 aPTT Coag (Bld) [Time] 44.1 s 24.1-36.2 [facility] No Panel InformationOrdered By: Edward Smith on 09-28-2023 Estimated Creatinine Clearance Calc 60.63 ml/min [facility] Estimated GFR (MDRD) Amer 72 mL/min >60 [facility] Comment on above: GFR Calc Estimated GFR (MDRD) Non-Af Amer 59 mL/min >60 [facility] Comment on above: Non- GFR Calc Serum or plasma calcium nolan urement (mass/volume)Ordered By: Edward Smith on 09-28-2023 Calcium [Mass/Vol] 8.4 mg/dL 8.5-10.1 [facility] Serum or plasma creatinine m easurement (mass/volume)Ordered By: Edward Smith on 09-28-2023 Creatinine [Mass/Vol] 1.28 mg/dL 0.70-1.30 [facility] Comment on above: The validity of the calculated GFR & GFRAA in patients over 70 years has not been determined. Clinical correlation is essential. Serum or plasma urea nitroge n measurement (mass/volume)Ordered By: Edward Smith on 09-28-2023 Urea nitrogen [Mass/Vol] 21 mg/dL 7-18 [facility] Thin prep Papanicolaou smear with manual screeningOrdered By: Edward Smith on 09-28-2023 Thin prep Papanicolaou smear with manual screening 4 5-15 [facility] Absolute lymphocyte countOrd ered By: Toney Hoang on 09-27-2023 Lymphocytes Auto (Unsp spec) [#/Vol] 2.43 10*3/uL 0.83-4.51 [facility] Basophil percentageOrdered B y: Toney Hoang on 09-27-2023 Basophils/100 WBC (Bld) 0.3 % 0-1 [facility] Chloride [Moles/Vol] 106 mmol/L 98-107 [facility] Eosinophils/100 WBC (Bld) 3.0 % 0-5 [facility] Glucose [Mass/Vol] 114 mg/dL 74-106 [facility] Comment on above: Fasting Glucose resu lt from 100 to 125 mg/dL suggests IMPAIRED HOMEOSTASIS per A.D.A. criteria. Neutrophils (Bld) [#/Vol] 4.3 10*3/uL 2.0-7.7 [facility] Neutrophils/100 WBC (Bld) 56.6 % 47-70 [facility] Potassium [Moles/Vol] 4.1 mmol/L 3.5-5.1 [facility] Comment on above: Slight Hemolysis, Re sult may be falsely increased. Sodium [Moles/Vol] 141 mmol/L 136-145 [facility] WBC (Bld) [#/Vol] 7.6 10*3/uL 4.4-11.0 [facility] Blood erythrocytes count (nu mber/volume)Ordered By: Toney Hoang on 09-27-2023 RBC (Bld) [#/Vol] 5.06 10*6/uL 4.6-6.2 [facility] Blood hemoglobin measurement (mass/volume)Ordered By: Toney Hoang on 09-27-2023 Hemoglobin (Bld) [Mass/Vol] 15.3 g/dL 13.0-16.5 [facility] Blood lymphocytes/100 leukoc ytesOrdered By: Toney Hoang on 09-27-2023 Lymphocytes/100 WBC (Bld) 32.1 % 19-41 [facility] Blood monocytes/100 leukocyt esOrdered By: Toney Hoang on 09-27-2023 Monocytes/100 WBC (Bld) 7.7 % 0-10 [facility] Blood platelet mean volumeOr dered By: Toney Hoang on 09-27-2023 Platelet mean volume (Bld) [Entitic vol] 10.5 fL 6.2-12.0 [facility] Determination of erythrocyte mean corpuscular volume (MCV)Ordered By: Toney Hoang on 09-27-2023 MCV (RBC) [Entitic vol] 92.5 fL 80-94 [facility] Hematocrit Auto (Bld) [Volum e fraction]Ordered By: Toney Hoang on 09-27-2023 Hematocrit (Bld) [Volume fraction] 46.8 % 40-54 [facility] INR in Blood by Coagulation assayOrdered By: Toney Hoang on 09-27-2023 INR Coag (Bld) [Relative time] 1.1 {INR} [facility] Laboratory - Chemistry and C hemistry - challengeOrdered By: Toneyashish Hoang on 09-27-2023 CO2 [Moles/Vol] 30.0 mmol/L 21.0-32.0 [facility] Urea nitrogen/Creatinine [Mass ratio] 13.2 mg/mg 10-20 [facility] Laboratory - CoagulationOrde red By: Toneyashish Hoang on 09-27-2023 aPTT Coag (Bld) [Time] 31.2 s 24.1-36.2 [facility] PT Coag (PPP) [Time] 14.1 s 11.7-14.9 [facility] Laboratory - Hematology and Cell countsOrdered By: Toneyashish Hoang on 09-27-2023 Erythrocyte distribution width (RBC) [Entitic vol] 46.8 fL 35.1-43.9 [facility] Erythrocyte distribution width (RBC) [Ratio] 13.7 % 11.6-14.6 [facility] Immature granulocytes/100 WBC (Bld) 0.300 % 0.0-0.9 [facility] Comment on above: IG% - Immature Granu locytes (promyelocytes, myelocytes and metamyelocytes) > 1% indicates that a LEFT SHIFT is Present. MCH (RBC) [Entitic mass] 30.2 pg 27.0-32.0 [facility] Nucleated RBC/100 WBC (Bld) [Ratio] 0 % 0-5 [facility] MCHC Auto (RBC) [Mass/Vol]Or dered By: Toneyashish Hoang on 09-27-2023 MCHC (RBC) [Mass/Vol] 32.7 g/dL 32-36 [facility] No Panel InformationOrdered By: Toney Hoang on 09-27-2023 Troponin I High Sensitivity 18 pg/mL 3.0-78.0 [facility] Comment on above: Please Note: New Leonela t Units and Gender Specific Reference Ranges. For more information see Policy Stat Procedure [place] High Sensitivity Troponin (TNIH) and attachments. Estimated Creatinine Clearance Calc 51.05 ml/min [facility] Estimated GFR (MDRD) Amer 59 mL/min >60 [facility] Comment on above: GFR Calc Estimated GFR (MDRD) Non-Af Amer 49 mL/min >60 [facility] Comment on above: Non- GFR Calc Troponin I High Sensitivity 20 pg/mL 3.0-78.0 [facility] Comment on above: Please Note: New Leonela t Units and Gender Specific Reference Ranges. For more information see Policy Stat Procedure [place] High Sensitivity Troponin (TNIH) and attachments. Platelets bldOrdered By: Toney Hoang on 09-27-2023 Platelets (Bld) [#/Vol] 162 10*3/uL 150-450 [facility] Serum or plasma calcium nolan urement (mass/volume)Ordered By: Toney Hoang on 09-27-2023 Calcium [Mass/Vol] 9.1 mg/dL 8.5-10.1 [facility] Serum or plasma creatinine m easurement (mass/volume)Ordered By: Toney Hoang on 09-27-2023 Creatinine [Mass/Vol] 1.52 mg/dL 0.70-1.30 [facility] Comment on above: The validity of the calculated GFR & GFRAA in patients over 70 years has not been determined. Clinical correlation is essential. Serum or plasma urea nitroge n measurement (mass/volume)Ordered By: Toneyashish Hoang on 09-27-2023 Urea nitrogen [Mass/Vol] 20 mg/dL 7-18 [facility] Thin prep Papanicolaou smear with manual screeningOrdered By: Toneyashish Hoang on 09-27-2023 Thin prep Papanicolaou smear with manual screening 5 5-15 [facility] Absolute lymphocyte countOrd ered By: Heath Villalpando on 09-06-2023 Lymphocytes Auto (Unsp spec) [#/Vol] 1.90 10*3/uL 0.83-4.51 [facility] Basophil percentageOrdered B y: Heath Villalpando on 09-06-2023 Basophils/100 WBC (Bld) 0.3 % 0-1 [facility] Chloride [Moles/Vol] 109 mmol/L 98-107 [facility] Eosinophils/100 WBC (Bld) 3.5 % 0-5 [facility] Glucose [Mass/Vol] 120 mg/dL 74-106 [facility] Comment on above: Fasting Glucose resu lt from 100 to 125 mg/dL suggests IMPAIRED HOMEOSTASIS per A.D.A. criteria. Neutrophils (Bld) [#/Vol] 4.8 10*3/uL 2.0-7.7 [facility] Neutrophils/100 WBC (Bld) 63.5 % 47-70 [facility] Potassium [Moles/Vol] 4.2 mmol/L 3.5-5.1 [facility] Sodium [Moles/Vol] 138 mmol/L 136-145 [facility] WBC (Bld) [#/Vol] 7.5 10*3/uL 4.4-11.0 [facility] Blood erythrocytes count (nu mber/volume)Ordered By: Heath Villalpando on 09-06-2023 RBC (Bld) [#/Vol] 4.41 10*6/uL 4.6-6.2 [facility] Blood hemoglobin measurement (mass/volume)Ordered By: Heath Villalpando on 09-06-2023 Hemoglobin (Bld) [Mass/Vol] 13.4 g/dL 13.0-16.5 [facility] Blood lymphocytes/100 leukoc ytesOrdered By: Heath Villalpando on 09-06-2023 Lymphocytes/100 WBC (Bld) 25.3 % 19-41 [facility] Blood monocytes/100 leukocyt esOrdered By: Heath Villalpando on 09-06-2023 Monocytes/100 WBC (Bld) 7.1 % 0-10 [facility] Blood platelet mean volumeOr dered By: Heath Villalpando on 09-06-2023 Platelet mean volume (Bld) [Entitic vol] 10.2 fL 6.2-12.0 [facility] Determination of erythrocyte mean corpuscular volume (MCV)Ordered By: Heath Villalpando on 09-06-2023 MCV (RBC) [Entitic vol] 94.8 fL 80-94 [facility] Hematocrit Auto (Bld) [Volum e fraction]Ordered By: Heath Villalpando on 09-06-2023 Hematocrit (Bld) [Volume fraction] 41.8 % 40-54 [facility] Laboratory - Chemistry and C hemistry - challengeOrdered By: Heath Villalpando on 09-06-2023 CO2 [Moles/Vol] 27.0 mmol/L 21.0-32.0 [facility] Urea nitrogen/Creatinine [Mass ratio] 16.4 mg/mg 10-20 [facility] Laboratory - Hematology and Cell countsOrdered By: Heath Villalpando on 09-06-2023 Erythrocyte distribution width (RBC) [Entitic vol] 48.8 fL 35.1-43.9 [facility] Erythrocyte distribution width (RBC) [Ratio] 14.0 % 11.6-14.6 [facility] Immature granulocytes/100 WBC (Bld) 0.300 % 0.0-0.9 [facility] Comment on above: IG% - Immature Granu locytes (promyelocytes, myelocytes and metamyelocytes) > 1% indicates that a LEFT SHIFT is Present. MCH (RBC) [Entitic mass] 30.4 pg 27.0-32.0 [facility] Nucleated RBC/100 WBC (Bld) [Ratio] 0 % 0-5 [facility] MCHC Auto (RBC) [Mass/Vol]Or dered By: Heath Villalpando on 09-06-2023 MCHC (RBC) [Mass/Vol] 32.1 g/dL 32-36 [facility] No Panel InformationOrdered By: Heath Villalpando on 09-06-2023 Troponin I High Sensitivity 39 pg/mL 3.0-78.0 [facility] Comment on above: Please Note: New Leonela t Units and Gender Specific Reference Ranges. For more information see Policy Stat Procedure [place] High Sensitivity Troponin (TNIH) and attachments. D-Dimer Quantitative (PE/DVT) 0.40 FEU/ug/m 0.27-0.49 [facility] Comment on above: NORMAL D-Dimer level (<0.50) indicates no DVT or PE. Estimated Creatinine Clearance Calc 53.15 ml/min [facility] Estimated GFR (MDRD) Amer 62 mL/min >60 [facility] Comment on above: GFR Calc Estimated GFR (MDRD) Non-Af Amer 51 mL/min >60 [facility] Comment on above: Non- GFR Calc Platelets bldOrdered By: Niurka Villalpando on 09-06-2023 Platelets (Bld) [#/Vol] 120 10*3/uL 150-450 [facility] Serum or plasma calcium nolan urement (mass/volume)Ordered By: Heath Villalpadno on 09-06-2023 Calcium [Mass/Vol] 8.7 mg/dL 8.5-10.1 [facility] Serum or plasma creatinine m easurement (mass/volume)Ordered By: Heath Villalpando on 09-06-2023 Creatinine [Mass/Vol] 1.46 mg/dL 0.70-1.30 [facility] Comment on above: The validity of the calculated GFR & GFRAA in patients over 70 years has not been determined. Clinical correlation is essential. Serum or plasma urea nitroge n measurement (mass/volume)Ordered By: Heath Villalpando on 09-06-2023 Urea nitrogen [Mass/Vol] 24 mg/dL 7-18 [facility] Thin prep Papanicolaou smear with manual screeningOrdered By: Heath Villalpando on 09-06-2023 Thin prep Papanicolaou smear with manual screening 2 5-15 [facility] IO UA (automated w/o microsc opy)on 06-08-2023 Protein (U) [Mass/Vol] Negative MP -Urology-R [facility] 232 DO Work Phone: IO UA (automated w/o microscopy) Negative OD-Bmlmzmh-C [facility] 232 DO Work Phone: IO UA (automated w/o microscopy) Normal (0.2-1.0 mg/dl) MP-Urolog y-R [facility] 232 DO Work Phone: IO UA (automated w/o microscopy) 6.0 1 DT-Jcpegia-U [facility] 232 DO Work Phone: IO UA (automated w/o microscopy) 1.020 1 [facility] 232 DO Work Phone: IO UA (automated w/o microscopy) Clear EE-Smdhxaz-B [facility] 232 DO Work Phone: IO UA (automated w/o microscopy) Yellow HX-Sigfdpw-Y [facility] 232 DO Work Phone: Office Visit (Urology)on Follow-up visit Diagnoses/Problems Assessed Benign prostatic hyperplasia without urinary obstruction (600.00) (N40.0) Erectile dysfunction (607.84) (N52.9) Nocturia (788.43) (R35.1) Former smoker (V15.82) (Z87.891) Patient Discussion/Summary All available PSA values reviewed, Options discussed. Questions answered. Diet changes for prostate health discussed and educational information given. Pros/Cons of prostate health supplements discussed. Treatment options for LUTS reviewed Discussed timed voiding. Discussed fluid and caffeine intake Treatment options for ED reviewed. TriMix Rx given Discussed ALE Lifestyle change to help prevent UTIs discussed. Encouraged fluid intake. 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 He has tried Sildenafil and Cialis and this was not helpful. He is able to get a partial erection but is not able to penetrate. Libido is pretty good. No pain or curvature with erections.. Chronic BPH sx are mild and stable. Denies urgency and frequency. Denies dysuria. Denies hematuria. Nocturia x1. No medication for LUT'S. No hx of kidney stones. Unsure when last PSA was done. No fhx of prostate cancer. PSA 05/19 was 0.23. Review of Systems Constitutional: No fever, No chills. Eye: Negative. Ear/Nose/Mouth/Throat: Negative. Respiratory: No shortness of breath, No cough. Cardiovascular: No chest pain, No peripheral edema. Gastrointestinal: No nausea, Genitourinary: Negative except as documented in history of present illness. Hematology/Lymphatics: Patient denies being on blood thinners.. Endocrine: Negative. Immunologic: Not immunocompromised. Musculoskeletal: Negative Integumentary: Negative. Neurologic: Alert and oriented X4. Psychiatric: Negative. Surgical History Problems History of Vasectomy Family History Mother No pertinent family history Father No pertinent family history Social History Problems Former smoker (V15.82) (Z87.891) Allergies Medication No Known Drug Allergies Recorded By: Allyson Hemphill; 06/08/2023 10:50:38 AM Current Meds Medication NameInstruction Aspirin 81 MG TABS hydroCHLOROthiazide CAPS Losartan Potassium TABS Vitals Vital Signs Recorded: 08Jun2023 10:50AM Heart Rate52 [id number] Hflgcblqv10 Height6 ft Lajeke627 lb 8 oz BMI Rrkwwkhyvp67.18 kg/m2 BSA Calculated2.23 Tobacco Useb) No PHQ-2 #1. Over the last 2 weeks have you felt down, depressed or hopeless? (If yes, answer PHQ-9 below)No PHQ-2 #2. Over the last 2 weeks have you felt little interest or pleasure in doing things? (If yes, answer PHQ-9 below)No Falls Screening (Age 18+)a) No falls within the last year Physical Exam A/O x 3 in No apparent distress Constitutional: General appearance normal Respiratory: Respiratory effort is normal Gastrointestinal:Abdom en is not tender Genitourinary: Kidneys: Not palpable Bilaterally Bladder: Not palpable or tender Scrotum: No mass. No Hydrocele Epididymis: No spermatocele. Not tender Testicles: no mass. WNL Urethra: No Discharge Penis: WNL...No lesions. circumcised Prostate: Symmetric. No Nodules. BENIGN Seminal Vesicles: No mass Sphincter Tone: normal Signatures Electronically signed by : Patrice Hoang II, MD; Jun 08 2023 11:02AM EST (Author) Normal [employer] Tobacco Screening.on 023 Adult depression screening assessment No MP-Urology- R [facility] 232 DO Work Phone: Fall risk assessment a) No falls within the last year [facility] Work Phone: Tobacco use status CPHS b) No M P[facility] 232 DO Work Phone: Basophil percentageon 2021 Bilirubin [Mass/Vol] 0.40 mg/dL 0.20-1.00 [facility] Work Phone: Comment on above: For patients on eltr ombopag therapy, use of Dimension [place] TBIL is not recommended. Chloride [Moles/Vol] 105 mmol/L 98-107 [facility] Work Phone: Cholesterol [Mass/Vol] 156 mg/dL <200 [facility] Work Phone: Comment on above: <200 mg/dL Desirable 200-240 mg/dL Borderline >240 mg/dL High Risk Glucose [Mass/Vol] 110 mg/dL 74-106 [place] [facility] Work Phone: Comment on above: Fasting Glucose resu lt from 100 to 125 mg/dL suggests IMPAIRED HOMEOSTASIS per A.D.A. criteria. Potassium [Moles/Vol] 4.7 mmol/L 3.5-5.1 [facility] Work Phone: [phone] Protein [Mass/Vol] 7.8 g/dL 6.4-8.2 [facility] Work Phone: [phone] Sodium [Moles/Vol] 139 mmol/L 136-145 [facility] Work Phone: [phone] Triglyceride [Mass/Vol] 302 mg/dL <199 [facility] Work Phone: [phone] Comment on above: The drugs N-Acetylcy steine and Metamizole may falsely depress this assay.Serum Triglycerides Reference Interval Normal <150 mg/dL Borderline high 150 - 199 mg/dL High 200 - 499 mg/dL Very High > or = 500 mg/dL Laboratory - Chemistry and C hemistry - challengeon 10-26-2022 ALP [Catalytic activity/Vol] 62 U/L 45-117 [facility] Work Phone: ALT [Catalytic activity/Vol] 47 U/L 16-61 [facility] Work Phone: [phone] CO2 [Moles/Vol] 26.0 mmol/L 21.0-32.0 [facility] Work Phone: [phone] Globulin (S) [Mass/Vol] 3.8 g/dL 2.2-4.2 [facility] Work Phone: [phone] Urea nitrogen/Creatinine [Mass ratio] 14.2 mg/mg 10-20 [facility] Work Phone: No Panel Informationon 10-26 Estimated GFR (MDRD) Amer 64 mL/min >60 [facility] Work Phone: Comment on above: GFR Calc Estimated GFR (MDRD) Non-Af Amer 53 mL/min >60 [facility] Work Phone: Comment on above: Non- GFR Calc Serum or plasma albumin nolan urement (mass/volume)on 10-26-2022 Albumin [Mass/Vol] 4.0 g/dL 3.2-5.0 [facility] Work Phone: Serum or plasma albumin/glob ulin mass ratioon 10-26-2022 Albumin/Globulin [Mass ratio] 1.1 {ratio} 0.9-2.4 [facility] Work Phone: [phone] Serum or plasma calcium nolan urement (mass/volume)on 10-26-2022 Calcium [Mass/Vol] 9.2 mg/dL 8.5-10.1 [facility] Work Phone: Serum or plasma cholesterol in HDL measurement (mass/volume)on 10-26-2022 Cholesterol in HDL [Mass/Vol] 30 mg/dL >40 [facility] Work Phone: Comment on above: The drugs N-Acetylcy steine and Metamizole may falsely depress this assay. Reference Range HDL <40 mg/dL Low HDL Cholesterol HDL >or= 60 mg/dL High HDL Cholesterol Serum or plasma cholesterol in VLDL measurement (mass/volume)on 10-26-2022 Cholesterol in VLDL [Mass/Vol] 60 mg/dL 5-40 [facility] Work Phone: Serum or plasma creatinine m easurement (mass/volume)on 10-26-2022 Creatinine [Mass/Vol] 1.41 mg/dL 0.70-1.30 [facility] Work Phone: Comment on above: The validity of the calculated GFR & GFRAA in patients over 70 years has not been determined. Clinical correlation is essential. Serum or plasma low density lipoprotein (LDL) cholesterol measurement (mass/volume)on 10-26-2022 Cholesterol in LDL [Mass/Vol] 66 mg/dL 0-130 [facility] Work Phone: Serum or plasma urea nitroge n measurement (mass/volume)on 10-26-2022 Urea nitrogen [Mass/Vol] 20 mg/dL 7-18 [facility] Work Phone: [phone] Thin prep Papanicolaou smear with manual screeningon 10-26-2022 Thin prep Papanicolaou smear with manual screening 26 U/L 15-37 [facility] Work Phone: Thin prep Papanicolaou smear with manual screening 8 5-15 [facility] Work Phone: MR FOOT W/O LTon 02-09-2022 MR FOOT W/O LT [place] [id number] [place] [address] Patient: JADON REYES Phone#: : 1955 Age: 66 Gender: M Pt. Type: Out Account: [id number] Location: Ordering: KATRINA BORRERO Exam Date: 02/09/2022/9:43 Family Phys: JUAN SOUSA Charge Code: [id number] Physician: [place] Order #: [id number] DLP Dose#: PROCEDURE: MRI FOOT LT WITHOUT CONTRAST COMPARISON: None. INDICATIONS: Stress fracture of left foot TECHNIQUE: A complete multi-planar examination was performed without contrast. FINDINGS: SOFT TISSUES: There is edema in the subcutaneous tissues dorsal to the 1st MTP articulation. There is edema at the dorsal aspect of the foot at the levels of the metatarsals to the toes BONES: Subchondral cyst at the 1st proximal phalanx distal aspect and 5th metatarsal distal aspect. JOINTS: The dorsal joint capsule appears discontinuous at the 3rd and 4th MTP joints, series 7, image 21 and image 25. There is edema in the adjacent soft tissues. PLANTAR FASCIA: The imaged portion of the distal plantar fascia is unremarkable in thickness. EFFUSIONS: None. No synovitis or loose bodies. TENDONS: Normal. No visible tendinitis, tear, or tenosynovitis. OTHER: No other significant findings. CONCLUSION: 1. Third and 4th MTP joint capsule tear, dorsal aspect. There is adjacent edema. 2. Edema in the subcutaneous tissues the dorsal aspect of the foot. Dictated by: Allison Franklin MD on 02/15/2022 at 15:33 Approved by: Allison Franklin MD on 02/15/2022 at 15:[address] [facility] OBSOLETEon 01-20-2021 OBSOLETE Refill (FAMPWS) ERICJADON MELENDREZ ([id number]) 1955 M Date Time Provider Department 01/20/21 [facility]LA[facility] WREN [facility] During your visit today, we recorded the following information about you: Marylin Kellogg [facility] 01/21/2021 9:17 AM Signed Patient has been identified by name and date of : Yes Pending Prescriptions Disp Refills HYDROCHLOROTHIAZIDE 12.5 MG TABLET 90 tablet 1 Sig: Take 1 tablet by mouth once daily. JUAN: No RX INSTRUCTIONS: Patient aware RX will be sent to pharmacy. No need to notify patient. Last office visit:07/24/20 Next office visit:none scheduled Last refill:08/21/20 90 tablets 1 refill Marylin Kellogg [facility] Rip Giron DNP.FRANCO, HEALTH PROMOTER.STAKEHOLDER MANAGER 01/21/2021 9:41 AM Signed The following approved medication requests have been transmitted electronically. Pending Prescriptions Disp Refills HYDROCHLOROTHIAZIDE 12.5 MG TABLET 90 tablet 1 Sig: Take 1 tablet by mouth once daily. JUAN: No Rip Giron DNP.CNP Allergies As of Date: 01/20/2021 Noted Allergy Reaction LISINOPRIL 06/11/2018 3 - Cough SEASONAL ALLERGIES 03/02/2015 5 - Intolerance Date Reviewed: 07/24/2020 Reviewed by: Jacky Olivia LPN - Fully Assessed Reason for Visit: Refill Request [94] Visit Diagnosis:Essential hypertension, benign [I10] Order(s):hydroCHLOROth iazide (HYDRODIURIL, ESIDRIX) 12.5 mg tabletTake 1 tablet by mouth once daily.Disp: 90 tabletRfl: 1 Prescriptions as of 01/20/2021 Sig: HYDROCHLOROTHIAZIDE 12.5 MG T* Take 1 tablet by mouth once d* LATANOPROST 0.005 % EYE DROPS SALINE MIST 0.65 % NASAL SPRA* Use 1 Amb[place] in the nose as ne* LOSARTAN 100 MG TABLET Take 1 tablet by mouth once d* NAPROXEN SODIUM 220 MG CAPSULE Take by mouth. CETIRIZINE 10 MG TABLET Take 10 mg by mouth once ignacio* * TRAVOPROST 0.004 % EYE DROPS 1 Drop daily at bedtime. * ECOTRIN LOW STRENGTH 81 MG TA* Take one(1) tablet daily. * MULTIPLE VITAMIN TABLET Take one(1) tablet daily. Problem List As Of Date 01/20/2021 Noted Resolved Asthma [J45.909] Other dyspnea and respiratory abnormality [R06.* 08/30/2016 SLEEP APNEA NOS [G47.30] ALLERGIC RHINITIS NOS [J30.9] BENIGN HYPERTENSION [I10] 07/27/2006 Diarrhea [R19.7] 11/06/2006 01/31/2017 Other conjunctivitis [H10.89] 01/23/2008 01/31/2017 Glaucoma (increased eye pressure) [H40.9] More... Impaired fasting glucose [R73.01] 01/31/2017 Hyperlipidemia LDL goal <100 [E78.5] 01/31/2017 Encounter for screening for malignant neoplasm *03/13/2017 Carpal tunnel syndrome, bilateral [G56.03] 05/28/2018 Forearm strain, left, initial encounter [S56.91*06/01/2019 Prescriptions ordered this encounter Disp Refills Start End HYDROCHLOROTHIAZIDE 12.5 MG TABLET 90 t* 1 01/21/2021 Route: ORAL Sig: Take 1 tablet by mouth once daily. Medications Discontinued During This Encounter Prescriptions - hydroCHLOROthiazide (HYDRODIURIL, ESIDRIX) 12.5 mg tablet (Discontinued) Take 1 tablet by mouth once daily. Encounter Status:Closed by RIP GIRON DNP STAKEHOLDER MANAGER on 01/21/21 Normal [facility] STRESS TEST EXERCISEon 06-30 STRESS TEST EXERCISE NAME : JOHN REYES PID : [id number] : 1955 Gender : Male Race : ORD : [id number] Procedure Date : Jun 30 2020 08:13:26 Edit Date : Jul 03 2020 08:35:04 Protocol Name : SHAKEEL Time In Exercise Phase : 00:06:32 Max. Systolic BP : 194 mmHg Max Diastolic BP : 86 mmHg Max Heart Rate : 151 BPM Max Predicted Heart Rate : 155 BPM Recovery ECG Response (OLD) : Reason For Termination : Target Heart Rate Achieved Test Reason : Atypical Chest Pain Location :RSL Overread By : FEDE MOSES M.D. Edited By : Ana Luisa Urbano Referred By : RAFAT WILKERSON III Acquired by : CARIDAD BEAR [facility] 06-29-2020 CNPN Telephone ([facility]ME) JADON REYES ([id number]) 1955 M Date Time Provider Department 06/29/20 ESTHELA BLACK (RN) [facility]ME During your visit today, we recorded the following information about you: Esthela Black RN, RN 06/29/2020 12:21 PM Signed Spoke with patient regarding reminder for stress test tomorrow and given instructions. Allergies As of Date: 06/29/2020 Noted Allergy Reaction LISINOPRIL 06/11/2018 3 - Cough SEASONAL ALLERGIES 03/02/2015 5 - Intolerance Date Reviewed: 06/18/2020 Reviewed by: Alaina Wren - Fully Assessed Reason for Visit: Reminder Call [[id number]] Prescriptions as of 06/29/2020 Sig: HYDROCHLOROTHIAZIDE 12.5 MG T* Take 1 tablet by mouth once d* CLONIDINE HCL 0.2 MG TABLET Take 0.2 mg by mouth every 8 * TRAMADOL 50 MG TABLET Take 50 mg by mouth every 6 h* SALINE MIST 0.65 % NASAL SPRA* Use 1 Amboy in the nose as ne* PERFLUTREN LIPID MICROSPHERES* Inject 1.3 mL intravenously a* CYCLOBENZAPRINE 10 MG TABLET Take 1 tablet by mouth three * Patient not taking: Reported on 06/18/2020 LOSARTAN 100 MG TABLET Take 1 tablet by mouth once d* NAPROXEN SODIUM 220 MG CAPSULE Take by mouth. CETIRIZINE 10 MG TABLET Take 10 mg by mouth once ignacio* * TRAVOPROST 0.004 % EYE DROPS 1 Drop daily at bedtime. * ECOTRIN LOW STRENGTH 81 MG TA* Take one(1) tablet daily. * MULTIPLE VITAMIN TABLET Take one(1) tablet daily. Problem List As Of Date 06/29/2020 Noted Resolved Asthma [J45.909] Other dyspnea and respiratory abnormality [R06.* 08/30/2016 SLEEP APNEA NOS [G47.30] ALLERGIC RHINITIS NOS [J30.9] BENIGN HYPERTENSION [I10] 07/27/2006 Diarrhea [R19.7] 11/06/2006 01/31/2017 Other conjunctivitis [H10.89] 01/23/2008 01/31/2017 Glaucoma (increased eye pressure) [H40.9] More... Impaired fasting glucose [R73.01] 01/31/2017 Hyperlipidemia LDL goal <100 [E78.5] 01/31/2017 Encounter for screening for malignant neoplasm *03/13/2017 Carpal tunnel syndrome, bilateral [G56.03] 05/28/2018 Forearm strain, left, initial encounter [S56.91*06/01/2019 Encounter Status:Closed by ESTHELA BLACK on 06/29/20 [facility] Vital Signs Date Time Vital Sign Value Performing Clinician Faci lity 04-23-2025 10:33-0400 Body height 182.[address] Juan Sousa MD Work Phone: [facility] 04-23-2025 10:33-0400 Body mass index (BMI) [Ratio] 30.1 kg/m2 Dr. Juan Sousa MD Work Phone: [facility] 04-23-2025 10:33-0400 Body weight 100.[address] Juan Sousa MD Work Phone: [facility] 04-23-2025 10:33-0400 Diastolic blood pressure 83 mm[Hg] Dr. Juan Sousa MD Work Phone: [facility] 04-23-2025 10:33-0400 Heart rate 56 /min Dr. Juan Sousa MD Work Phone: [facility] 04-23-2025 10:33-0400 Respiratory rate 16 /min Dr. Juan Sousa MD Work Phone: [facility] 04-23-2025 10:33-0400 Systolic blood pressure 127 mm[Hg] Dr. Juan Sousa MD Work Phone: [facility] 03-01-2024 10:41-0400 Body height 182.[address] Juan Sousa Work Phone: [facility] 03-01-2024 10:41-0400 Body weight 95.[address] Juan Sousa Work Phone: [facility] 02-16-2024 10:17-0400 Body height 182.[address] Juan Sousa Work Phone: [facility] 02-16-2024 10:17-0400 Body mass index (BMI) [Ratio] 29.4 kg/m2 Dr. Juan Sousa Work Phone: [facility] 02-16-2024 10:17-0400 Body weight 98.[address] Juan Sousa Work Phone: [facility] 02-16-2024 10:17-0400 Diastolic blood pressure 77 mm[Hg] Dr. Juan Sousa Work Phone: [facility] 02-16-2024 10:17-0400 Heart rate 70 /min Dr. Juan Sousa Work Phone: [facility] 02-16-2024 10:17-0400 Respiratory rate 16 /min Dr. Juan Sousa Work Phone: [facility] 02-16-2024 10:17-0400 Systolic blood pressure 119 mm[Hg] Dr. Juan Sousa Work Phone: [facility] 02-09-2024 07:52-0400 Body weight 95.[address] Juan Sousa Work Phone: [facility] 01-10-2024 08:56-0500 Body height 182.[address] Juan Sousa Work Phone: [facility] 01-10-2024 08:56-0500 Body weight 95.[address] Juan Sousa Work Phone: [facility] 12-11-2023 13:16-0500 Body mass index (BMI) [Ratio] 29.2 kg/m2 Dr. Juan Sousa Work Phone: [facility] 12-11-2023 13:07-0500 Body height 182.[address] Juan Sousa Work Phone: [facility] 12-11-2023 13:07-0500 Body weight 97.[address] Juan Sousa Work Phone: [facility] 12-11-2023 13:03-0500 Diastolic blood pressure 80 mm[Hg] Dr. Juan Sousa Work Phone: [facility] 12-11-2023 13:03-0500 Systolic blood pressure 127 mm[Hg] Dr. Juan Sousa Work Phone: [facility] 12-11-2023 13:01-0500 Heart rate 60 /min Dr. Juan Sousa Work Phone: [facility] 11-22-2023 09:33-0500 Body mass index (BMI) [Ratio] 29.2 kg/m2 Dr. Juan Sousa Work Phone: [facility] 11-22-2023 09:33-0500 Body weight 97.[address] Juan Sousa Work Phone: [facility] 11-22-2023 09:33-0500 Diastolic blood pressure 80 mm[Hg] Dr. Juan Sousa Work Phone: [facility] 11-22-2023 09:33-0500 Heart rate 60 /min Dr. Juan Sousa Work Phone: [facility] 11-22-2023 09:33-0500 Respiratory rate 16 /min Dr. Juan Sousa Work Phone: [facility] 11-22-2023 09:33-0500 Systolic blood pressure 127 mm[Hg] Dr. Juan Sousa Work Phone: [facility] 10-11-2023 09:51-0500 Body height 182.9 cm Jacquelin Leonard CNP Work Phone: [facility] [place] 10-11-2023 09:51-0500 Body mass index (BMI) [Ratio] 28.75 kg/m2 Jacquelin Warren HEALTH PROMOTER - STAKEHOLDER MANAGER Work Phone: [facility] [place] 10-11-2023 09:51-0500 Body weight 96.16 kg Jacquelin Warren HEALTH PROMOTER - STAKEHOLDER MANAGER Work Phone: [facility] [place] 10-11-2023 09:51-0500 Diastolic blood pressure 72 mm[Hg] Jacquelin Warren HEALTH PROMOTER - STAKEHOLDER MANAGER Work Phone: [facility] [place] 10-11-2023 09:51-0500 Heart rate 91 /min Jacquelin Warren HEALTH PROMOTER - STAKEHOLDER MANAGER Work Phone: [facility] [place] 10-11-2023 09:51-0500 Systolic blood pressure 122 mm[Hg] Jacquelin Warren HEALTH PROMOTER - STAKEHOLDER MANAGER Work Phone: [facility] [place] 10-07-2023 12:06-0500 Diastolic blood pressure 75 mm[Hg] Kit Beverly MD Work Phone: [facility] [place] 10-07-2023 12:06-0500 Heart rate 78 /min Kit Beverly MD Work Phone: [facility] [place] 10-07-2023 12:06-0500 Respiratory rate 16 /min Kit Beverly MD Work Phone: [facility] [place] 10-07-2023 12:06-0500 SaO2% (BldA) [Mass fraction] 98 % Kit Beverly MD Work Phone: [facility] [place] 10-07-2023 12:06-0500 Systolic blood pressure 124 mm[Hg] Kit Beverly MD Work Phone: [employer] [place] 10-07-2023 12:00-0500 Body temperature 97.5 [degF] Kit Beverly MD Work Phone: [facility] [place] 10-07-2023 03:59-0500 Body mass index (BMI) [Ratio] 29.09 kg/m2 Kit Beverly MD Work Phone: [facility] 10-07-2023 03:59-0500 Body weight 97.3 kg Kit Beverly MD Work Phone: [facility] 10-04-2023 08:42-0500 Body height 182.9 cm Kit Beverly MD Work Phone: [facility] 10-03-2023 17:40-0500 SaO2% (BldA) [Mass fraction] 97.5 % Kit Beverly MD Work Phone: [facility] 10-03-2023 12:21-0500 SaO2% (BldA) [Mass fraction] 98.5 % Kit Beverly MD Work Phone: [facility] 09-29-2023 01:30-0400 Body temperature 98 [degF] Dr. Juan Sousa Work Phone: [facility] 09-29-2023 01:30-0400 Diastolic blood pressure 85 mm[Hg] Dr. Juan Sousa Work Phone: [facility] 09-29-2023 01:30-0400 Heart rate 67 /min Dr. Juan Sousa Work Phone: [facility] 09-29-2023 01:30-0400 Respiratory rate 16 /min Dr. Juan Sousa Work Phone: [facility] 09-29-2023 01:30-0400 SaO2% (BldA) [Mass fraction] 99 % Dr. Juan Sousa Work Phone: [facility] 09-29-2023 01:30-0400 Systolic blood pressure 138 mm[Hg] Dr. Juan Sosua Work Phone: [facility] 09-27-2023 15:22-0400 Body height 182.[address] Juan Sousa Work Phone: [facility] 09-27-2023 15:22-0400 Body mass index (BMI) [Ratio] 29.7 kg/m2 Dr. Juan Sousa Work Phone: 0(335)791-804523 [place] [address] 09-27-2023 15:22-0400 Body weight 99.[address] Juan Sousa Work Phone: [facility] 09-27-2023 14:01-0400 SaO2% (BldA) [Mass fraction] 97 % Dr. Juan Sousa Work Phone: 2(203)731-556823 [place] [address] 09-27-2023 13:53-0400 Body height 182.[address] Juan Sousa Work Phone: 8(855)935-347307 [address] 09-27-2023 13:53-0400 Body mass index (BMI) [Ratio] 30.3 kg/m2 Dr. Juan Sousa Work Phone: 5(426)289-270965 [place] [address] 09-27-2023 13:53-0400 Body temperature 97.5 [degF] Dr. Juan Sousa Work Phone: 4(057)218-002865 [place] [address] 09-27-2023 13:53-0400 Body weight 101.[address] Juan Sousa Work Phone: 4(599)259-227207 [address] 09-27-2023 13:53-0400 Diastolic blood pressure 102 mm[Hg] Dr. Juan Sousa Work Phone: 0(941)434-922365 [place] [address] 09-27-2023 13:53-0400 Heart rate 65 /min Dr. Juan Sousa Work Phone: 0(143)626-820407 [address] 09-27-2023 13:53-0400 Respiratory rate 20 /min Dr. Juan Sousa Work Phone: 5(055)017-387923 [place] [address] 09-27-2023 13:53-0400 Systolic blood pressure 160 mm[Hg] Dr. Juan Sousa Work Phone: [facility] 09-06-2023 03:14-0400 Diastolic blood pressure 92 mm[Hg] Dr. Juan Sousa Work Phone: 3(368)446-840023 [place] [address] 09-06-2023 03:14-0400 Heart rate 64 /min Dr. Juan Sousa Work Phone: 2(999)846-778423 [place] [address] 09-06-2023 03:14-0400 Respiratory rate 16 /min Dr. Juan Sousa Work Phone: [facility] 09-06-2023 03:14-0400 SaO2% (BldA) [Mass fraction] 99 % Dr. Juan Sousa Work Phone: [facility] 09-06-2023 03:14-0400 Systolic blood pressure 162 mm[Hg] Dr. Juan Sousa Work Phone: [facility] 09-05-2023 23:49-0400 Body mass index (BMI) [Ratio] 29.8 kg/m2 Dr. Juan Sousa Work Phone: [facility] 09-05-2023 23:49-0400 Body temperature 97.5 [degF] Dr. Juan Sousa Work Phone: [facility] 09-05-2023 23:49-0400 Body weight 99.[address] Juan Sousa Work Phone: [facility] 06-08-2023 10:50-0400 Body height 182.88 cm Juan Sousa Work Phone: [facility] 232 DO Work Phone: 06-08-2023 10:50-0400 Body mass index (BMI) [Ratio] 30.18 kg/m2 Juan Sousa Work Phone: DK-Hnxndrz-Dfxlfvf d [facility] 232 DO Work Phone: 06-08-2023 10:50-0400 Body surface area Derived from formula 2.23 m2 Juan Sousa Work Phone: VU-Xashawd-Lbhljle [facility] 232 DO Work Phone: 06-08-2023 10:50-0400 Body weight 100.93 kg Juan Sousa Work Phone: IX-Tgvzabx-Iqvrdbu d [facility] 232 DO Work Phone: 06-08-2023 10:50-0400 Diastolic blood pressure 76 mm[Hg] Juan Sousa Work Phone: IF-Pjoonwn-Nlbagnu d [facility] 232 DO Work Phone: 06-08-2023 10:50-0400 Heart rate 52 /min Juan Sousa Work Phone: HK-Mzzxpow-Weodshs d [facility] 232 DO Work Phone: 06-08-2023 10:50-0400 Systolic blood pressure 143 mm[Hg] Juan Sousa Work Phone: ZF-Mdlirxq-Beqrkvi d HC 232 DO Work Phone: Encounters Encounter Date Encounter Type Care Provider Facility Start: 07-30-2025 End: 07-30-[address] Juan Sousa MD Work Phone: -Laboratory [facility] Start: 07-30-2025 End: 07-30-[address] Juan Sousa MD -[facility] Start: 07-30-2025 End: 07-30-2025 ambulatory Juan Sousa Facility:[facility] Start: 05-28-2025 Non-patient / Non-visit Dr. Jay GRANADOS -[facility] Start: 05-28-2025 End: 05-28-[address] Juan Sousa MD Work Phone: -Cardiovascular Services Start: 05-28-2025 End: 05-28-2025 Patient encounter procedure Jeri Quinn PA -Cardiovascular Services Work Phone: Start: 05-28-2025 End: 05-28-2025 ambulatory Jeri PEOPLES Facility:[facility] Start: 05-05-2025 Non-patient / Non-visit Dr. Jose Alberto griffith MD -[facility] Start: 05-05-2025 End: 05-05-[address] Juan Sousa MD Work Phone: [facility] Work Phone: Start: 05-05-2025 End: 05-05-2025 Patient encounter procedure Jeri Quinn PA -Cardiovascular Services Work Phone: Start: 05-05-2025 End: 05-05-2025 ambulatory Jeri PEOPLES Facility:[facility] Start: 04-23-2025 End: 04-23-2025 Patient encounter procedure Jeri PEOPLES -[facility] Work Phone: Start: 04-23-2025 End: 04-23-[address] Juan Sousa MD Work Phone: [facility] Work Phone: Start: 04-17-2025 End: 04-17-[address] Juan Sousa MD Work Phone: [facility] Work Phone: Start: 04-17-2025 End: 04-17-2025 Patient encounter procedure Jeri PEOPLES -Laboratory Work Phone: Start: 04-17-2025 End: 04-17-2025 ambulatory Jeri PEOPLES Facility:[facility] Start: 01-08-2025 End: 01-08-[address] Juan Sousa MD -Laboratory [facility] Start: 01-08-2025 End: 01-08-2025 ambulatory Juan Sousa Facility:[facility] Start: 11-25-2024 End: 11-25-2024 ambulatory Juan Sousa Facility:[facility] Start: 03-13-2024 End: 03-26-[address] Juan Sousa Work Phone: [facility] Work Phone: Start: 03-13-2024 End: 03-26-[address] Juan Sousa Work Phone: [facility] Work Phone: Start: 02-23-2024 End: 02-25-[address] Juan Sousa Work Phone: [facility] Work Phone: Start: 02-23-2024 End: 02-25-[address] Juan Sousa Work Phone: [facility] Work Phone: Start: 02-16-2024 End: 02-16-[address] Juan Sousa Work Phone: [facility] Work Phone: Start: 01-17-2024 End: 01-25-[address] Juan Sousa Work Phone: [facility] Work Phone: Start: 01-17-2024 End: 01-25-[address] Juan Sousa Work Phone: [facility] Work Phone: Start: 01-15-[address] Juan Sousa Work Phone: [facility] Work Phone: Start: 01-10-2024 End: 01-10-[address] Juan Sousa Work Phone: [facility] Work Phone: Start: 01-10-2024 End: 01-10-[address] Juan Sousa Work Phone: [facility] Start: 12-27-2023 End: 12-27-[address] Juan Sousa Work Phone: [facility] Work Phone: Start: 12-27-2023 End: 12-27-[address] Juan Sousa [facility] Phone: [facility] [facility] Work Phone: Start: 12-13-[address] Juan oSusa Work Phone: [facility] Work Phone: Start: 12-11-2023 End: 12-11-[address] Juan Sousa Work Phone: [facility] Work Phone: Start: 12-11-2023 End: 12-11-[address] Juan Sousa Work Phone: [facility] Work Phone: Start: 12-04-2023 Non-patient / Non-visit Dr. Richelle Sousa Work Phone: [facility] Start: 11-22-2023 End: 11-22-[address] [facility] Phone[facility] Work Phone: Start: 11-08-2023 End: 11-08-2023 Postop follow up visit related to original px Jacquelin Warren HEALTH PROMOTER - STAKEHOLDER MANAGER Work Phone: [facility] Comment on above: CAD in [place] artery (Primary Dx); S/P CABG (coronary artery bypass graft) Start: 11-08-2023 End: 11-08-20[facility] Start: 10-26-2023 End: 10-26-2023 Postop follow up visit related to original px Jacquelin Warren HEALTH PROMOTER - STAKEHOLDER MANAGER Work Phone: [facility] Comment on above: CAD in [place] artery (Primary Dx); S/P CABG (coronary artery bypass graft) Start: 10-26-2023 End: 10-26-2023 [facility] Start: 10-12-2023 End: 10-12-[address] Juan Sousa Work Phone: [facility] Work Phone: Start: 10-12-2023 End: 10-12-[address] Juan Sousa Work Phone: [facility] Start: 10-11-2023 End: 10-11-2023 ambulatory JUAN SOUSA [facility] Start: 10-11-2023 End: 10-11-2023 Postop follow up visit related to original px Jacquelin Warren HEALTH PROMOTER - STAKEHOLDER MANAGER Work Phone: [facility] Comment on above: CAD in [place] artery (Primary Dx); S/P CABG (coronary artery bypass graft) Start: 09-29-2023 End: 10-07-2023 Encounter for other preprocedural examination KIT BEVERLY [facility] Start: 09-29-2023 End: 10-07-2023 Evaluation and management of inpatient JUAN SOUSA [facility] Start: 09-29-2023 End: 10-07-2023 Evaluation and management of inpatient Kit Beverly MD Work Phone: [facility] Cardiac Thoracic Vascular Intensive Care Unit CTV ICU T1 Start: 09-29-2023 End: 10-07-2023 Preprocedural examination done Kit Beverly MD Work Phone: [facility] Start: 09-28-2023 Non-patient / Non-visit Dr. Richelle Sousa Work Phone: [facility] Work Phone: Start: 09-28-2023 Non-patient / Non-visit Dr. Richelle Sousa Work Phone: [facility] Start: 09-27-2023 Non-patient / Non-visit Dr. Richelle Sousa Work Phone: [facility] Work Phone: Start: 09-27-2023 End: 09-29-2023 Evaluation and management of inpatient Dr. Juan Sousa Work Phone: [facility] Work Phone: Start: 09-27-2023 Non-patient / Non-visit Dr. Richelle Sousa Work Phone: [facility] Start: 09-27-2023 End: 09-27-[address] Juan Sousa Work Phone: [facility] Work Phone: Start: 09-27-2023 End: 09-27-[address] Juan Sousa Work Phone: [facility]Cardi[facility] Services Work Phone: Start: 09-05-2023 End: 09-06-2023 Emergency department patient visit Dr. Juan Sousa Work Phone: [facility]Emergency [facility] Work Phone: Start: 06-08-2023 Office outpatient ne w 45 minutes Juan Sousa Work Phone: [facility] 232 DO Work Phone: Start: 06-08-[address] Patrice [address] Hoang II Facility:[id number] Start: 10-26-2022 End: 10-26-2022 ambulatory [facility] Work Phone: Start: 10-26-2022 End: 10-26-2022 Patient encounter procedure [facility] Start: 02-09-2022 End: 02-09-2022 ambulatory JUAN SOUSA [facility] Procedures Date Procedure Procedure Detail Performing Clinician Start: 01-08-2025 Measurement of renal function Dr. Juan Sousa MD Work Phone: Comment on above: GFR Calc Start: 10-07-2023 Radiologic exam ches t single view Jacquelin Warren HEALTH PROMOTER - STAKEHOLDER MANAGER Work Phone: Start: 10-07-2023 Basic metabolic pane l calcium total Jacquelin Archibaldel HEALTH PROMOTER - STAKEHOLDER MANAGER Work Phone: Start: 10-07-2023 Compatibility each u nit electronic Ceferino R Geraldine HEALTH PROMOTER - STAKEHOLDER MANAGER Work Phone: Start: 10-06-2023 Radiologic exam ches t single view Jacquelin Archibaldel HEALTH PROMOTER - STAKEHOLDER MANAGER Work Phone: Start: 10-06-2023 Basic metabolic pane l calcium total Jacquelin Warren HEALTH PROMOTER - STAKEHOLDER MANAGER Work Phone: Start: 10-05-2023 Glucose quantitative blood xcpt reagent strip Kit Beverly MD Work Phone: Start: 10-05-2023 Glucose quantitative blood xcpt reagent strip Kit Beverly MD Work Phone: Start: 10-05-2023 Radiologic exam ches t single view Jacquelin Warren HEALTH PROMOTER - STAKEHOLDER MANAGER Work Phone: Start: 10-05-2023 Basic metabolic pane l calcium total Jacquelin Warren HEALTH PROMOTER - STAKEHOLDER MANAGER Work Phone: Start: 10-04-2023 Glucose quantitative blood xcpt reagent strip Kit Beverly MD Work Phone: Start: 10-04-2023 End: 10-04-2023 Glucose quantitative blood xcpt reagent strip Kit Beverly MD Work Phone: Start: 10-04-2023 End: 10-04-2023 Glucose quantitative blood xcpt reagent strip Kit Beverly MD Work Phone: Start: 10-04-2023 Glucose quantitative blood xcpt reagent strip Kit Beverly MD Work Phone: Start: 10-04-2023 End: 10-04-2023 Glucose quantitative blood xcpt reagent strip Kit Beverly MD Work Phone: Start: 10-04-2023 Glucose quantitative blood xcpt reagent strip Kit Beverly MD Work Phone: Start: 10-04-2023 Glucose quantitative blood xcpt reagent strip Kit Beverly MD Work Phone: Start: 10-04-2023 Ecg routine ecg w/le ast 12 lds trcg only w/o i&r Jacquelin Warren HEALTH PROMOTER - STAKEHOLDER MANAGER Work Phone: Start: 10-04-2023 Radiologic exam ches t single view Jacquelin Warren HEALTH PROMOTER - STAKEHOLDER MANAGER Work Phone: Start: 10-04-2023 Glucose quantitative blood xcpt reagent strip Kit Beverly MD Work Phone: Start: 10-04-2023 Glucose quantitative blood xcpt reagent strip Kit Beverly MD Work Phone: Start: 10-04-2023 End: 10-04-2023 Basic metabolic panel calcium total Jacquelin Warren HEALTH PROMOTER - STAKEHOLDER MANAGER Work Phone: Start: 10-03-2023 Glucose quantitative blood xcpt reagent strip Kit Beverly MD Work Phone: Start: 10-03-2023 End: 10-03-2023 Glucose quantitative blood xcpt reagent strip Kit Beverly MD Work Phone: Start: 10-03-2023 Glucose quantitative blood xcpt reagent strip Kit Beverly MD Work Phone: Start: 10-03-2023 Blood gases any combination ph pco2 po2 co2 hco3 Ceferino Chnadler HEALTH PROMOTER - STAKEHOLDER MANAGER Work Phone: Start: 10-03-2023 End: 10-03-2023 Comprehensive metabolic panel Ceferino Chandler HEALTH PROMOTER - STAKEHOLDER MANAGER Work Phone: Start: 10-03-2023 End: 10-03-2023 Glucose quantitative blood xcpt reagent strip Kit Beverly MD Work Phone: Start: 10-03-2023 Glucose quantitative blood xcpt reagent strip Kit Beverly MD Work Phone: Start: 10-03-2023 Radiologic exam ches t single view Jacquelin Warren HEALTH PROMOTER - STAKEHOLDER MANAGER Work Phone: Start: 10-03-2023 History of coronary artery bypass grafting History of coronary artery bypass surgery Jeri PEOPLES Comment on above: SCHWAB-mLAD beyond candice cified area, Ao-pl-pda seq, EVH left leg 10/03/23 Start: 10-03-2023 End: 10-03-2023 Basic metabolic panel calcium total Jacquelin Warren HEALTH PROMOTER - STAKEHOLDER MANAGER Work Phone: Start: 10-03-2023 Ecg routine ecg w/le ast 12 lds trcg only w/o i&r Jacquelin Warren HEALTH PROMOTER - STAKEHOLDER MANAGER Work Phone: Start: 10-03-2023 Platelets, pheresis Lj Beverly MD Work Phone: Start: 10-03-2023 End: 10-03-2023 TRANSFUSE PLATELETS Edward Bryant HEALTH PROMOTER - HYPERCIL CORE TRANSFORMER ASSEMBLER Work Phone: Start: 10-03-2023 Blood gases any combination ph pco2 po2 co2 hco3 Kit Beverly MD Work Phone: Start: 10-03-2023 Basic metabolic pane l calcium total Kit Beverly MD Work Phone: Start: 10-03-2023 Echo transesophag r- t 2d w/prb img acquisj i&r [employer] [facility] HEALTH PROMOTER - STAKEHOLDER MANAGER Work Phone: Start: 10-03-2023 End: 10-03-2023 Cabg w/arterial graft three arterial grafts Kit Beverly MD Work Phone: Start: 10-03-2023 End: 10-03-2023 Echo transesophag r-t 2d w/prb img acquisj i&r Kit Beverly MD Work Phone: Start: 10-03-2023 Antibody screen JUAN BARTON Comment on above: Order Comment: Speci men is valid for 3 days - nurse to verify valid specimen Performed By: #### L [id number] #### Assistant Chief Nursing Officer: MEME MA ([id number]) [address] Start: 10-03-2023 ABO and Rh group [Ty pe] in Blood by Confirmatory method [employer] [facility] HEALTH PROMOTER - STAKEHOLDER MANAGER Work Phone: Start: 10-03-2023 Blood typing serolog ic abo [employer] HEALTH PROMOTER - STAKEHOLDER MANAGER Work Phone: Start: 10-03-2023 Comprehensive metabo lic panel Maxim Irwin HEALTH PROMOTER - STAKEHOLDER MANAGER Work Phone: Start: 10-02-2023 BEDSIDE SPIROMETRY Maxim Irwin HEALTH PROMOTER - STAKEHOLDER MANAGER Work Phone: Start: 10-01-2023 Basic metabolic pane l calcium total Maxim Irwin HEALTH PROMOTER - STAKEHOLDER MANAGER Work Phone: Start: 09-30-2023 Ecg routine ecg w/le ast 12 lds i&r only Jacquelin Warren HEALTH PROMOTER - STAKEHOLDER MANAGER Work Phone: Start: 09-29-2023 Assay of troponin quantitative Maxim Irwin HEALTH PROMOTER - STAKEHOLDER MANAGER Work Phone: Start: 09-29-2023 Dup-scan xtr veins complete bilateral study Maxim Irwin HEALTH PROMOTER - STAKEHOLDER MANAGER Work Phone: Start: 09-29-2023 Duplex scan extracra nial art compl bi study Maxim Irwin HEALTH PROMOTER - STAKEHOLDER MANAGER Work Phone: Start: 09-29-2023 Echo tthrc r-t 2d w/wom-mode compl spec&colr d Maxim Irwin HEALTH PROMOTER - STAKEHOLDER MANAGER Work Phone: Start: 09-29-2023 Assay of troponin quantitative Maxim Irwin HEALTH PROMOTER - STAKEHOLDER MANAGER Work Phone: Start: 09-29-2023 Radiologic exam ches t single view Jacquelin Warren HEALTH PROMOTER - STAKEHOLDER MANAGER Work Phone: Start: 09-29-2023 Ecg routine ecg w/le ast 12 lds i&r only Jacquelin Warren HEALTH PROMOTER - STAKEHOLDER MANAGER Work Phone: Start: 09-29-2023 End: 09-29-2023 Comprehensive metabolic panel Jacquelin Warren HEALTH PROMOTER - STAKEHOLDER MANAGER Work Phone: Start: 09-27-2023 Plain chest X-ray Dr. Maggi Sousa Work Phone: Start: 09-27-2023 Radionuclide imaging of perfusion of myocardium under exercise stress Dr. Juan Sousa Work Phone: Start: 09-06-2023 Plain chest X-ray Dr. Maggi Sousa Work Phone: History of coronary artery bypass grafting S/P CABG (coronary artery bypass graft) Kit Beverly MD Work Phone: History of coronary artery bypass grafting S/P CABG (coronary artery bypass graft) Jacquelin Warren HEALTH PROMOTER - STAKEHOLDER MANAGER Work Phone: History of coronary artery bypass grafting S/P CABG (coronary artery bypass graft) Jacquelin Warren HEALTH PROMOTER - STAKEHOLDER MANAGER Work Phone: History of coronary artery bypass grafting S/P CABG (coronary artery bypass graft) Jacquelin Warren HEALTH PROMOTER - STAKEHOLDER MANAGER Work Phone: Vasectomy Juan Sousa Work Phone: Plan of Treatment Date Care Activity Detail Author Start: 09-01-2029 DTaP/Tdap/Td Vaccines (4 - Td or Tdap) DTaP/Tdap/Td Vaccines (4 - Td or Tdap) [facility] Start: 09-01-2029 [facility] Start: 09-29-2024 Diabetes mellitus screening [facility] Start: 12-11-2023 Patient referral to dietitian [facility] Start: 12-04-2023 Patient referral [facility] Work Phone: Start: 10-26-2023 End: 10-26-2023 Telemedicine consultation with patient 10/26/2023 11:30 AM EST Telemedicine [facility] [address] [place] [address] Jacquelin Warren, HEALTH PROMOTER - STAKEHOLDER MANAGER [address] [place], [place] [id number] [facility] Start: 09-28-2023 End: 09-29-2023 Patient discharge [facility] Start: 09-28-[address] [facility] Start: 09-28-2023 Patient education [facility] Start: 09-28-2023 Provision of activity privileges [facility] Start: 09-28-2023 Pulse taking [facility] Start: 09-28-2023 Taking patient vital signs [facility] Start: 09-28-2023 Wound care [facility] Start: 09-28-2023 [facility] Start: 09-28-2023 [facility] Start: 09-27-2023 End: 09-27-2023 Following clinical pathway protocol [facility] Start: 09-27-2023 Ambulation without limitation [facility] Start: 09-27-2023 Assessment of risk of venous thromboembolism [facility] Start: 09-27-2023 Cardiac catheterization [facility] Start: 09-27-2023 Insertion of catheter into peripheral vein [facility] Start: 09-27-2023 Measuring intake and output [facility] Start: 09-27-2023 Providing care according to standard [facility] Start: 09-27-2023 Referral to wire rope fabrication supervisor [facility] Start: 09-27-2023 [facility] Start: 09-27-2023 Verification routine [facility] Start: 09-27-2023 Admission procedure [facility] Start: 09-27-2023 Hospital admission, emergency, from emergency room, medical nature [facility] Start: 09-27-2023 Blood chemistry [facility] Start: 09-27-2023 [facility] Start: 09-06-2023 [facility] Start: 09-06-2023 [facility] Start: 07-28-2023 COVID-19 Vaccine ( season) COVID-19 Vaccine ( season) [facility] Start: 06-19-2023 FUV, Provider: Patrice Hoang II, Status: Pen, Time: 10:45 AM FUV, Provider: Patrice Hoang II, Status: Pen, Time: 10:45 AM [facility] 232 DO Work Phone: Start: 02-26-2023 [facility] Start: 01-21-2017 Zoster Vaccines (2 of 3) Zoster Vaccines (2 of 3) [facility] Start: 01-21-2017 [facility] Start: 2014 RSV Immunization aged 60 or older (1 - 1-dose 60+ series) RSV Immunization aged 60 or older (1 - 1-dose 60+ series) [facility] Start: 1972 Hepatitis C screening [facility] Start: 1966 Depression Screening Depression Screening [facility] Start: 1966 [facility] Start: 1954 Lipid panel [facility] Start: 1954 Medicare Advantage Annual Wellness Visit (AWV) Medicare Advantage Annual Wellness Visit (AWV) [facility] Start: 1954 Screening for malignant neoplasm of colon [facility] Start: 1954 [facility] Ankle brachial press ure index [facility] Bedside spirometry [facility] Work Phone: Lipid 1996 panel - S kim or Plasma [facility] Patient Education ED Chest Pain, Uncertain Cause [facility] Work Phone: Patient referral [facility] Work Phone: [facility] Immunizations Immunization Date Immunization Notes Care Provider Fa cility 09-28-2023 Influenza High-Dose Quadrivalent Dr. Juan Sousa Work Phone: [facility] 06-13-2022 Covid-19, Pfizer Gra y Top, Do Not Dilute, (Age 12 Y+), Im, L Jacquelin Warren HEALTH PROMOTER - STAKEHOLDER MANAGER Work Phone: [facility] 02-18-2021 Covid (Pfizer) [facility] 01-28-2021 Covid (Pfizer) [facility] NEGATED: Highlighted row has not occurred!09-30-2023 Kit Beverly MD Work Phone: [facility] Comment on above: Deferred: Other - re ceived at [facility] prior to transfer Payers Date Payer Category Payer Self-pay [id number] 2021 Medicare [id number] 2021 Medicare [id number] 1954 Unknown [id number] [id number] 1954 Unknown [id number] [id number]. [id number] Unknown ANTHEM MEDICARE ADV Unknown [id number] 2.16.8 [id number] Unknown [id number] 2.16.8 [id number] Unknown [id number] 2.16.8 [id number] Unknown [id number] 2.16.8 [id number] Unknown [id number] 2.16.8 [id number] Unknown [id number] 2.16.8 [id number] Unknown [id number] 2.16.8 [id number] Unknown [id number] 2.16.8 [id number] Unknown [id number] 2.16.8 [id number] Social History Date Type Detail Facility Start: 06-14-2020 End: 02-16-2024 Tobacco smoking status [facility] Unknown if ever smoked [facility] Start: 06-14-2020 With Family [facility] Start: 06-14-2020 Chew [facility] Start: 1955 Sex Assigned At Male W [facility] Start: 10-03-2023 Former smoker Former smoker [facility] 232 DO Work Phone: Start: 09-29-2023 End: 02-16-2024 Tobacco smoking status NHIS Ex-smoker [facility] History of tobacco use Current sm[facility] History of tobacco use Cigarette Sm[facility] History of tobacco use Cigar Smoker [facility] Start: 09-29-2023 Tobacco use and exposure Former smokeless tobacco user [facility] History of tobacco use Chews [facility] Start: 10-03-2023 Alcohol intake Current drinke r of alcohol (finding) [facility] Start: 10-03-[address] [facility] Start: 09-29-2023 Alcohol Comment Occasional [facility] Start: 1955 Sex Assigned At S [facility] Medical Equipment Procedure Code Equipment Code Equipment Origin al Text Equipment Identifier Dates 0.01-3.3 mcg/kg/ min 96.2 kg (0.9019-297.6188 mL/hr, rounded to 0.9-297.62 mL/hr), IntraVENous, Continuous PRN, Initiate if Cardiac Index above 2.0; SBP less than 90 mmHg or MAP less than 65 mmHg; and PAD above 18, Starting on Mon10/03/23 at 1248, Recovery & On Unit, Infuse via central line. If Titrate Infusion? is No: Disregard instructions below. If Titrate infusion? is Yes: Titrate in increments of 0.02 mcg/kg/min no faster than every 5 minutes to goal. When approaching therapeutic goal or weaning off, smaller titration increments of 0.01 mcg/kg/min no faster than every 5 minutes may be used to maintain goal. , Goal Maintain SBP greater than 90 and less than 130 Goal Maintain MAP greater than 65 and less than 80, Titrate Infusion: Yes, Infusion Dose: Other, Infusion Dose: 0.01 mcg/kg/min, Goal of Therapy is: MAP great than 65 mmHg, SBP greater than 90 mmHg, Contact Provider if: Patient is receiving the maximum dose and is not achieving the goal of therapy [id number] Start: 10-03-2023 End: 10-04-2023 Goals Date Patient Goal Desired Activity /State Functional Status Date Assessment Result Facility 09-29-2023 Functional status Ambulates;Bathroom Priv ilege [facility] Work Phone: Mental Status Date Assessment Result Facility 09-29-2023 Cognitive function Voice/Name [facility] Work Phone: 09-27-2023 Cognitive function Voice/Name [facility] Work Phone: 09-06-2023 Cognitive function Voice/Name [facility] Work Phone: Clinical Notes 11-30-2021 to 04-23-2025 Note Date & Type Note Facility 04-23-2025 Evaluation note Diagnosis Onset Date Resolution Ascending aorta dilatation acute April 23, 2025 10:28am History of coronary artery bypass surgery October 03, 2023 acute April 23, 2025 10:28am Leg weakness acute April 23 10:28am Essential hypertension chronic April 23, 2025 10:28am Hyperlipidemia chronic April 23, 2025 10:28am [facility] Work Phone: [phone] History of Present illness Narrative* Jacquelin Warren, ARCHIE - FRANCO - 11/08/2023 10:45 AM EST Images from the original note were not included. [facility] Group: [facility] [place] [address] [facility] [address] Dept: [phone] Dept Loc: [phone] Visit type: Established patient - Virtual Reason for Visit: Post-op Surgery/Procedure: 10/03/23: CABG x3 (SCHWAB-LAD, SVG-PDA, SVG-PL), LLE EVH with Dr. Beverly Assessment/Plan POD#36 Day from Discharge (10/07/23) #32 -Reviewed current meds Continue as ordered- ASA, Statin, & BB -Surgical Incisions: Per patient-healing appropriately, well approximated, no s/s of infection -Physical therapy as outlined in discharge instructions: Continue HHC -Acute Post-Operative Pain Tx plan: OTC as needed Wires Only Weight restriction measures 5-8 weeks from date of surgery- 20lbs weight restriction: 11/28/23 Disposition: F/U with CTS PRN F/U with [facility] 11/22 Patient verbalized understanding of plan and stated they would call if any questions or concerns arise. Treatment Team: PCP: JUAN SOUSA MD Cardiology: Patient was seen today via Telehealth by agreement and consent. I used the following Telehealth technology: Audio capability only. Total length of call 15 minutes. The patient was offered and advisedvideo for a more comprehensive evaluation, but the patient declined or was unable to use video. Patient location: Patient Location: Home. This patient encounter is appropriate and reasonable underthe circumstances: transportation issues . The patient has been advised of the potential risks and limitations of this mode of treatment (including but not limited to the absence of in-person examination) and has agreed to be treated in a remote fashion in spite of them. Any and all of the patient's/patient's family's questions on this issue have been answered and I have made no promises or guarantees to the patient. The patient has also been advised to contact this office for worsening conditions or problems, and seek emergency medical treatment and/or call 911 if the patient deems either nec essary. The patient stated that they are currently in the [facility]. If the patient is a minor,permission has been obtained by the parent or guardian for the patient to receive medical care at this visit. Patient identification was verified at the start of the visit: yes Total time spent on this encounter: 30 minutes Subjective HPI: 67 year old male patient with a known PMHx that includes HTN, HLD, and smoking. He presented to [facility] on 09/27/23 after he was called with results of a stress test he underwent. The stress test was completed earlier in the day on 09/27/23 and was positive for reversible ischemia. On admission in ED, his EKG showed T wave inversions in lead III and aVF, troponin negative. He was started on aspirin, heparin and Cardiology consulted. He had a cardiac catheterization on 09/28/23 which revealed multivessel CAD. He was transferred to [facility] for CABG. Was taken for CABG x3 with Dr. Beverly on 10/03/23. Postoperative course was uncomplicated, he was d/c'ed home on 10/07/23. 11/08/23: Spoke with patient for VV follow up. Patient is doing very well at home. Has been doing exercises & walks every day. Denies CP, leg swelling, or weight gain. Pain is controlled- not requiring any pain medications most days, only takes Acetaminophen when needed. He denies any incisional issues. Overall doing very well and recovering nicely. Review of Systems Constitutional: Negative for diaphoresis, fatigue and fever. Respiratory: Negative for cough, shortness of breath and wheezing. Cardiovascular: Negative for chest pain, palpitations and leg swelling. Gastrointestinal: Negative for abdominal distention, constipation and diarrhea. Skin: Negative for color change, pallor and rash. Objective Patient reported: none noted Wt Readings from Last 3 Encounters: 10/11/23 212 lb (96.2 kg) 10/07/23 214 lb 8.1 oz (97.3 kg) Physical exam deferred due to virtual visit-with audio (telephone) capabilities only Labs/Imaging/Testing: reviewed EMR, see A&P for pertinent diagnostic results related to office visit Disclaimer INFORMED CONSENT:The nature and purpose of the proposed treatment or procedure have been discussed.The risks and benefits of the proposed treatment or procedures have been reviewed. Alternatives have been reviewed in addition to the risks and benefits of not receiving treatments or undergoing procedures. Pursuant to this discussion, the patient agrees to undergo the proposed treatment or procedure. Captured images seen in this note from are not a substitute for a comprehensive interpretation of the entire data set as reflected by the interpreting physician with regard to radiology, echocardiography, and other diagnostic images. This note may have been dictated using [employer] Practice Edition 2.6 and/or [employer] Voice Recognition Feature. The document was proofread, however unrecognized voice recognition flat finisher errors may be present. documented in this [facility]11-30-2023 History of Present illness Narrative* ARCHIE Zapata CNP - 10/26/2023 11:30 AM EST Images from the original note were not included. [facility]: [facility] [place] [address] [facility] [facility] [address] Dept: [phone] Dept Loc: [phone] Visit type: Established patient - Virtual Reason for Visit: Post-op Surgery/Procedure: 10/03/23: CABG x3 (SCHWAB-LAD, SVG-PDA, SVG-PL), LLE EVH with Dr. Beverly Assessment/Plan POD#23 Day from Discharge (10/07/23) #19 -Reviewed current meds Continue as ordered- ASA, Statin, & BB -Surgical Incisions: Per patient-healing appropriately, well approximated, no s/s of infection -Physical therapy as outlined in discharge instructions: continues with HHC/PT -Acute Post-Operative Pain Tx plan: OTC as needed Weight restriction measures 1-4 weeks from date of surgery- 10lbs weight restriction: 10/31/23 5-8 weeks from date of surgery- 20lbs weight restriction: 11/28/23 9-12 weeks from date of surgery-30lbs weight restriction approximate end date: 12/26/23 Disposition: F/U with VV in 2 weeks F/U with [facility] end of month Patient verbalized understanding of plan and stated they would call if any questions or concerns arise. Treatment Team: PCP: JUAN SOUSA MD Cardiology: [facility] Patient was seen today via Telehealth by agreement and consent. I used the following Telehealth technology: Audio capability only. Total length of call 15 minutes. The patient was offered and advisedvideo for a more comprehensive evaluation, but the patient declined or was unable to use video. Patient location: VV Patient Location: Home. This patient encounter is appropriate and reasonable underthe circumstances: transportation issues . The patient has been advised of the potential risks and limitations of this mode of treatment (including but not limited to the absence of in-person examination) and has agreed to be treated in a remote fashion in spite of them. Any and all of the patient's/patient's family's questions on this issue have been answered and I have made no promises or guarantees to the patient. The patient has also been advised to contact this office for worsening conditions or problems, and seek emergency medical treatment and/or call 911 if the patient deems either nec essary. The patient stated that they are currently in the state [facility]. If the patient is a minor,permission has been obtained by the parent or guardian for the patient to receive medical care at this visit. Patient identification was verified at the start of the visit: yes Total time spent on this encounter: 30 minutes Subjective HPI: 67 year old male patient with a known PMHx that includes HTN, HLD, and smoking. He presented to [facility] on 09/27/23 after he was called with results of a stress test he underwent. The stress test was completed earlier in the day on 09/27/23 and was positive for reversible ischemia. On admission in ED, his EKG showed T wave inversions in lead III and aVF, troponin negative. He was started on aspirin, heparin and Cardiology consulted. He had a cardiac catheterization on 09/28/23 which revealed multivessel CAD. He was transferred to [facility] for CABG. Was taken for CABG x3 with Dr. Beverly on 10/03/23. Postoperative course was uncomplicated. He will d/c with close follow up. 10/26/23: Spoke with patient for VV follow up. He is doing well at home, is walking daily. He denies incisional issues, SOB, or leg swelling. Does have some soreness in his chest when using arms or with sneezing. Reports his appetite has improved and he is sleeping well. Taking all meditations as ordered. Has HHC/PT visiting. Review of Systems Constitutional: Negative for diaphoresis, fatigue and fever. Respiratory: Negative for cough, shortness of breath and wheezing. Cardiovascular: Negative for chest pain, palpitations and leg swelling. Gastrointestinal: Negative for abdominal distention, constipation and diarrhea. Skin: Negative for color change, pallor and rash. Objective Wt Readings from Last 3 Encounters: 10/11/23 212 lb (96.2 kg) 10/07/23 214 lb 8.1 oz (97.3 kg) Physical exam deferred due to virtual visit-with audio (telephone) capabilities only Labs/Imaging/Testing: reviewed EMR, see A&P for pertinent diagnostic results related to office visit Disclaimer INFORMED CONSENT:The nature and purpose of the proposed treatment or procedure have been discussed.The risks and benefits of the proposed treatment or procedures have been reviewed. Alternatives have been reviewed in addition to the risks and benefits of not receiving treatments or undergoing procedures. Pursuant to this discussion, the patient agrees to undergo the proposed treatment or procedure. Captured images seen in this note from are not a substitute for a comprehensive interpretation of the entire data set as reflected by the interpreting physician with regard to radiology, echocardiography, and other diagnostic images. This note may have been dictated using [employer] Medical Practice Edition 2.6 and/or [employer] Voice Recognition Feature. The document was proofread, however unrecognized voice recognition flat finisher errors may be present. documented in this [facility]11-15-2023 History of Present illness Narrative* ARCHIE Zapata CNP - 10/11/2023 10:00 AM EST Images from the original note were not included. [facility]: [facility] [place] [address] [place] [address] Dept: [phone] Dept Loc: [phone] Visit type: Established patient Reason for Visit: Post-op Assessment and Plan 1. CAD in [place] artery 2. S/P CABG (coronary artery bypass graft) 10/03/23: CABG x3 (SCHWAB-LAD, SVG-PDA, SVG-PL), LLE EVH POD#8 Day from Discharge (10/07/23) #4 -Reviewed current meds: - Continue current med regimen: ASA, Statin, BB - Robaxin & Oxycodone PRN for pain -Surgical Incisions: healing appropriately, well approximated, no s/s of infection. -Physical therapy as outlined in discharge instructions.Not ready for Cardiac Rehab and Not ready to drive. -Acute Post-Operative Pain controlled. Patient no longer taking narcotic opioid medication. Tx plan: Robaxin PRN, Continue to use narcotic/opioid analgesic medication, and Over The Counter-Tylenol (acetaminophen) 500 mg 1-2 tablets every 6 hours. No more than 4,000 mg in 24 hour period. Weight restriction measures 1-4 weeks from date of surgery- 10lbs weight restriction: 10/31/23 5-8 weeks from date of surgery- 20lbs weight restriction: 11/28/23 9-12 weeks from date of surgery-30lbs weight restriction approximate end date: 12/26/23 Disposition: F/U VV in 2 weeks Patient to make f/u with [facility] Patient verbalized understanding of plan and stated they would call if any questions or concerns arise. Treatment Team: PCP: JUAN SOUSA MD Subjective HPI: 67 year old male patient with a known PMHx that includes HTN, HLD, and smoking. He presented to [facility] on 09/27/23 after he was called with results of a stress test he underwent. The stress test was completed earlier in the day on 09/27/23 and was positive for reversible ischemia. On admission in ED, his EKG showed T wave inversions in lead III and aVF, troponin negative. He was started on aspirin, heparin and Cardiology consulted. He had a cardiac catheterization on 09/28/23 which revealed multivessel CAD. He was transferred to [facility] for CABG. Was taken for CABG x3 with Dr. Beverly on 10/03/23. Postoperative course was uncomplicated. He will d/c with close follow up. 10/11/23: Patient seen for initial postop visit. He is doing very well at home. Walking without anyassistance. Denies CP, SOB, or incisional issues. Has minimal leg swelling that is improving. Is taking Robaxin for pain at night, otherwise using Acetaminophen only. Continues to improve, having no issues with recovery. Review of Systems Constitutional: Positive for activity change and appetite change. Negative for diaphoresis, fatigueand fever. Respiratory: Negative for cough, shortness of breath and wheezing. Cardiovascular: Positive for leg swelling (minimal). Negative for chest pain and palpitations. Gastrointestinal: Negative for abdominal distention, constipation and diarrhea. Skin: Negative for color change, pallor and rash. Allergies Allergen Reactions Lisinopril Cough Outpatient Medications Prior to Visit Medication Sig Dispense Refill acetaminophen (Tylenol) 500 MG tablet Take 2 tablets (1,000 mg) by mouth in the morning and 2 tablets (1,000 mg) at noon and 2 tablets (1,000 mg) before bedtime. Do all this for 10 days. aspirin 81 MG EC tablet Take 81 mg by mouth daily. atorvastatin (Lipitor) 80 MG tablet Take 1 tablet (80 mg) by mouth daily. 30 tablet 2 latanoprost (Xalatan) 0.005 % ophthalmic solution Administer 1 drop into both eyes Nightly. methocarbamol (Robaxin) 500 MG tablet Take 1 tablet (500 mg) by mouth every 8 hours as needed for muscle spasms for up to 5 days. 15 tablet 0 metoprolol tartrate (Lopressor) 25 MG tablet Take 1 tablet (25 mg) by mouth 2 times daily. 60 tablet 2 oxyCODONE (Roxicodone) 5 MG immediate release tablet Take 1 tablet (5 mg) by mouth every 6 hours asneeded for severe pain (7-10) for up to 7 days. 28 tablet 0 No facility-administered medications prior to visit. Past Medical History: Diagnosis Date Glaucoma Hypertension Objective Patient reported: No flowsheet data found. Vitals: 10/11/23 0951 BP: 122/72 Pulse: 91 Wt Readings from Last 3 Encounters: 10/11/23 212 lb (96.2 kg) 10/07/23 214 lb 8.1 oz (97.3 kg) Physical Exam Cardiovascular: Rate and Rhythm: Normal rate and regular rhythm. Heart sounds: Normal heart sounds. Pulmonary: Effort: Pulmonary effort is normal. Breath sounds: Normal breath sounds. No decreased breath sounds, wheezing or rhonchi. Abdominal: General: Bowel sounds are normal. Palpations: Abdomen is soft. Tenderness: There is no abdominal tenderness. Musculoskeletal: Right lower le+ Edema present. Left lower le+ Edema present. Skin: General: Skin is warm and dry. Comments: Surgical Incisions: well approximate; clean dry with no drainage noted. Surrounding skin no redness, warmth, or signs of infection noted. Neurological: Mental Status: He is alert and oriented to person, place, and time. Data Reviewed and Summarized Labs/Imaging/Testing: reviewed EMR, see A&P for pertinent diagnostic results related to office visit ARCHIE Zapaat CNP documented in this [facility]11-11-2023 Miscellaneous Notes* Care Coordination - Unknown Case Management - 10/07/2023 2:59 PM EST Patient Choice Patient Name: JADON REYES Date of : 1955 * Care Plan - DENZEL DOSHI - 10/07/2023 6:11 AM EST Problem: Safety Goal: Patient will be injury free during hospitalization Outcome: Progressing Goal: I will remain free of falls Outcome: Progressing Problem: Daily Care Goal: Daily care needs are met Outcome: Progressing Problem: Pain - Adult Goal: Verbalizes/displays adequate comfort level or baseline comfort level Outcome: Progressing Problem: Discharge Planning Goal: Discharge to home or other facility with appropriate resources Outcome: Progressing Problem: Chronic Conditions and Co-morbidities Goal: Patient's chronic conditions and co-morbidity symptoms are monitored and maintained or improved Outcome: Progressing Problem: Problem Interventions Goal: Assess Nutritional Intake Outcome: Progressing The patient is Moderately Stable - Low risk of patient condition declining or worsening The patient's goals for the shift include The clinical goals for the shift include Over the shift, the patient did not make progress toward the following goals. Barriers to progression include weakness. Recommendations to address these barriers include assist with ambulation. * Home Care - Marli Xiong RN - 10/06/2023 3:26 PM EST Start PACC Note Home Health Referral Educated patient on Home Care and services available. Patient offered choice of available HHC and agreeable to RN PT (assess for OT needs) services with [facility]. Care Types: [facility] Isolation Precautions: No active isolations Social Determinates of Health: Tobacco Use: Medium Risk (10/03/2023) Patient History Smoking Tobacco Use: Former Smokeless Tobacco Use: Former Passive Exposure: Not on file Social History Substance and Sexual Activity Alcohol Use Yes Comment: Occasional Social History Substance and Sexual Activity Drug Use Never Does the patient have any financial resource strain? No Does the patient have any food insecurities? No Does the patient have any housing instabilities? No If any of the above is noted as yes - consider a PLUNKET NURSE evaluation once the patient returns home. START PATIENT REGISTRATION INFORMATION Order Information Order Signing Physician: Kit Beverly MD Service Ordered RN ?: Yes Service Ordered PT ?: Yes Service Ordered OT ?: No Service Ordered ST ?: No Service Ordered PLUNKET NURSE?:No Service Ordered STAMPING PRESS OPERATOR?: No Following Physician: Dr Kit Beverly Following Physician Overseeing Physician: Dr Kit Beverly (Required for Residents only) Agreeable to Follow? Yes Date/Time of Call 10/06/23 3:26 PM Care Coordination Same Day SOC?: No Primary Care Physician: JUAN SOUSA MD Primary Care Physician Primary Care Physician Address: [address] [place] [address] / [facility] [id number] Visit Instructions: N/A Service Discharge Location Type: Home with Home Health Care Service Facility Name: N/A Service Floor Facility: N/A Service Room No: N/A Demographics Patient Last Name: Eric Patient First Name: Jadon Language/Communication Barrier: n/a Service Address: [address] Service City: [place] Service ST: [place] Service ZIP: [address] Service (home) Other phone numbers: Telephone Information: Emergency Contact: Extended Emergency Contact Information Primary Emergency Contact: Monica Reyes Address: [address] [place] [address] [facility] Relation: Spouse Automatic Fancy Machine Operator needed? No Admission Information Admit Date: 09/29/2023 Patient status at discharge: Inpatient Admitting Diagnosis CAD in [place] artery [I25.10] Caregiver Information Caregiver First Name: n/a Caregiver Last Name: n/a Caregiver Relationship to Patient n/a Caregiver Phone Number: n/a Caregiver Notes: N/A Advanced Magnet Lab List No END PATIENT REGISTRATION INFORMATION Pt Home Health goal rehab at home COVID Status 1. Do you have any upper respiratory symptoms (cough, SOB, Fever)? No 2. Have you been exposed to anyone with COVID-19 Virus? No Answer only if pending or positive for COVID-19? 1. Agreeable to wear PPE at each visit? N/a 2. Is the hospital supplying them with PPE upon Discharge? N/a Start PACC Summary General Report/ Additional Comments Wound care/dressing changes: -Surgical incisions leave open to air, cleanse daily with mild soap & warm water, pat dry, no lotion or powders on incision. -Surgical tape/dsg removal 10 days from surgery date Respiratory Care: -Cough and Deep Breath; Use incentive spirometry 10 times every hour while awake for 2 weeks. Additional Orders: -Sternal precautions (no lifting, pushing, pulling >10 lbs) for 6 weeks-use heart pillow -Vitals per home health protocol-call for fever and chills -Daily weights- call for weight gain: 2-3lbs in one day; 5lbs in 3 days. -Wear TEDs during day and off at night. Lab Work: -If Diabetic: blood glucose testing as directed by PCP/Assistant Hall Director -For recent heart surgery if patient discharged on Coumadin verify need for INR draw on visit. Activity/Weight Bearing: -Up with assistance: up in chair for all meals, ambulate 3-4 times a day -Stretching exercises per PT discharge instructions Discharge Date: pending Referral Source-PACC: (Hospital/Unit): [facility] / T1-110/T1-110 A End PACC Note * Care Coordination - Toshia Chery RN - 10/06/2023 8:50 AM EST Images from the original note were not included. Care Management Progress Note Patient remains in [facility] ICU s/p CABG x 3 POD # 3. VSS, on RA, in NSR on tele, + BM, endocrine signedoff, and PT recommending IPR and continue to assess. Patient from home with , [facility] following for home care-discharge plan. Discharge Milestones and Delays Expected Date/Time: 10/08/[address] discharge order Complete med reconciliation Case mgmt discharge readiness Clinical Stability Diagnsotic Workup Expected Discharge History Expected Date/Time Set By Reviewed At 10/08/2023 Toshia Chery RN 10/06/2023 8:50 AM 10/08/2023 Toshia Chery RN 10/05/2023 8:51 AM 10/08/2023 Toshia Chery RN 10/04/2023 8:07 AM 10/08/2023 Toshia Chery RN 10/02/2023 10:01 AM 10/05/2023 Jacquelin Warren, HEALTH PROMOTER - STAKEHOLDER MANAGER 09/28/2023 3:56 PM Length of Stay (Days): 7 GMLOS: 5.8 * Care Coordination - Toshia Chery RN - 10/05/2023 8:51 AM EST Images from the original note were not included. Care Management Progress Note Patient remains in [facility] ICU s/p CABG x 3 POD # 2. VSS, on 2L NC, in NSR on tele, likely remove chesttube today, increase BB, add robaxin for pain, increased bowel regimen-gas on x-ray/ no BM yet, insulin per endocrine, and PT recommending IPR/continue to assess pending progress. Patient from home with [facility] following for home care needs. Discharge Milestones and Delays Expected Date/Time: 10/08/[address] discharge order Complete med reconciliation Case mgmt discharge readiness Clinical Stability Diagnsotic Workup Expected Discharge History Expected Date/Time Set By Reviewed At 10/08/2023 Toshia Chery RN 10/05/2023 8:51 AM 10/08/2023 Toshia Chery RN 10/04/2023 8:07 AM 10/08/2023 Toshia Chery RN 10/02/2023 10:01 AM 10/05/2023 Jacquelin Warren, HEALTH PROMOTER - STAKEHOLDER MANAGER 09/28/2023 3:56 PM Length of Stay (Days): 6 GMLOS: 5.8 * Care Coordination - Toshia Chery RN - 10/04/2023 8:07 AM EST Images from the original note were not included. Care Management Progress Note Patient remains in [facility] ICU now s/p CABG x 3 POD # 1. Extubated within window weaned to RA, in NSR on tele, chest tube to water seal, weaned off low dose levo, add BB, bowel regimen, insulin per endocrine and PT/OT evals pending. Patient from home with [facility] following for home care. Discharge Milestones and Delays Expected Date/Time: 10/08/[address] discharge order Complete med reconciliation Case mgmt discharge readiness Clinical Stability Diagnsotic Workup Expected Discharge History Expected Date/Time Set By Reviewed At 10/08/2023 Toshia Chery RN 10/04/2023 8:07 AM 10/08/2023 Toshia Chery RN 10/02/2023 10:01 AM 10/05/2023 Jacquelin Warren, HEALTH PROMOTER - STAKEHOLDER MANAGER 09/28/2023 3:56 PM Length of Stay (Days): 5 GMLOS: 5.8 * Op Note - Kit Beverly MD - 10/03/2023 7:21 AM EST Date of surgery 10/03/2023 Cardiothoracic surgeon Kit Beverly MD FACS Preoperative diagnosis: CAD Postoperative diagnosis: CAD Procedure: CABG x 3 [id number] beyond calcified area, ao-pl-pda seq EVH left leg Complications: None Anesthesia: GETA Indications for procedure the patient is a 67-year-old male referred from [facility] with unstable angina and severe two-vessel CAD. Procedure detail: The patient was positioned supine on the operating room table the patient was prepped and draped in usual sterile fashion a right IJ cordis [place]a catheter and radial arterial line were placed by the anesthesiologist. The patient was prepped and draped in usual sterile fashion a portion of the greater saphenous vein was harvested from the left leg using EVH. The vein was small in diameter although usable for bypass the branches were clipped with vascular clips and the aneurysmal areas were addressed with vascular clips. The leg incision was closed with Vicryl Monocryl a median sternotomy was performed the SCHWAB was dissected as a pedicle graft from the left anterior chest wall the patient was systemically heparinized with 3.5 mg/kg intravenous heparin. After 4 minutes elapsed since heparinization the SCHWAB pedicle was ligated and divided in fashion for bypass. Pericardium was incised aortic and right atrial pursestrings were placed after the ACT was verified the patient was cannulated placed on cardiopulmonary bypass cooled to 34 C antegrade and retrograde blood cardioplegia were delivered per protocol using a warm induction cold maintenance and warm reperfusionalgorithm. I also perfused antegrade through the vein graft after each distal and used a single clamp technique on the aorta and a distal proximal logic for grafting. Attention was initially directedto grafting the PDA the right coronary artery appeared very calcified although the PDA and PL branches were disease-free but rather small. The PDA measured about 1.5 mm in diameter and the PL measured approximately 1 mm in diameter consistent with a thready appearance on the cath. These were done in a sequential fashion with 7-0 Prolene's the proximal was then done with a 6-0 Prolene the vein graft and ascending aorta were de-aired in the usual fashion next the SCHWAB was grafted to the mid LAD beyond the calcified area which likely coincided with the stenosis evident on cath. The LAD measured about 2 mm in diameter and was free of disease at the anastomotic site beyond the site of anastomosis there was no palpable plaque. SCHWAB to LAD was done with a 7-0 Prolene having completed the grafts the hotshot cardioplegia dosage was delivered and the cross-clamp removed the patient had been warmed to 37 degrees the lungs were reinflated. The hotshot cardioplegia dosage was delivered and the cross-clamp removed about 5 minutes after cross-clamp removal the patient did require 1 defibrillation likely secondary to pacing the heart which responded well to defibrillation and did not recur the patient also developed rapid atrial fibrillation which responded to a dose of amiodarone. A temporary pacing wire was placed to the base of the right ventricle with a ground Abdominal wall both pleural cavities were entered [place] drains were placed in the left pleural cavity mediastinum and right pleural cavity. Having successfully weaned from bypass protamine was given to reverse the systemic effects of heparin and the patient was decannulated after hemostasis was assu red, which required a platelet transfusion, vancomycin paste was applied to the sternal edges and the sternum was closed with stainless to wire in interrupted fashion presternal fascia was closed with a running #1 PDS Vicryl Monocryl was used to close soft tissues and skin respectively in layers shreya Dermabond dressing applied. The patient was transferred stable intubated in sinus rhythm to ICU * Brief Op Note - Kit Beverly MD - 10/03/2023 7:21 AM EST Images from the original note were not included. Cardiothoracic Surgery Brief Operative Report Pre-operative Diagnosis: cad Post-operative Diagnosis: cad Procedure: Cabg X 3 [id number](distal to calcified zone); AO-PL-PDA W/ RSVG EVH left leg Surgeon: Kit Beverly MD, FACS Transmission Assembler(s): [x] Rashawn eMdina [] Luis Forman [] Lali Dotson [] Lali Lopez [] Other Anesthesia: General Estimated blood loss: 500 Total IV fluids: See anesthesia and perfusion record Blood Transfusion?: n Drains: 3 Specimens: 0 Complications: See full OP note Condition: stable Prophylactic Antibiotics: Yes 1st or 2nd generation cephalosporin given (or other antibiotic in the event of an allergy) within 1hour of surgical incision (two hours if receiving Vancomycin or flouroquinolone) If NO, indication reason why: [] Patient on continuous antibiotics for documented preoperative infection [] Other: The STS Risk Calculator score was calculated and discussed with the patient/family prior to surgery. Yes: [x] No: [] Not a risk calculated procedure [] Emergent or Emergent/Salvage Used of CRIS: Yes/ No due to: [] Subclavian stenosis [] Emergent or Emergent/Salvage [] Prior cardiothoracic surgery [] Prior mediastinal radiation [] No bypassable LAD disease, LAD not needed/bypassed: (This can include clean LAD, diffusely diseased LAD or other condition resulting in the LAD not being bypassed). Beta-edinson within 24 hours prior to surgical incision: [x] Yes - please see documentation in EMR [] No [] Allergy [] Heart block [] COPD [] Hypotension BP: [] Bradycardia HR: See dictated operative report for full details. Electronically signed by @MEMDNR@ on @TDNR@ at @NOWNR@ * Care Coordination - ALFREDA Bennett - 10/02/2023 7:11 PM EST Patient requested info on absentee voting. optical goods worker met with patient who is from [facility].Patient could be given form but family would need to take application in to [facility] [employer] and then return to the hospiital with a ballot, and again return to [facility] to hand ballot in. Patient declined. Due to the complicated logistics for his family. * Care Coordination - Toshia Chery RN - 10/02/2023 10:01 AM EST Images from the original note were not included. Care Management Progress Note Patient remains in CTV ICU with MVCAD. Plan CABG tomorrow, requested JONES to follow. Discharge Milestones and Delays Expected Date/Time: 10/08/[address] discharge order Complete med reconciliation Case mgmt discharge readiness Clinical Stability Diagnsotic Workup Expected Discharge History Expected Date/Time Set By Reviewed At 10/08/2023 Toshia Chery RN 10/02/2023 10:01 AM 10/05/2023 Jacquelin Warren, HEALTH PROMOTER - STAKEHOLDER MANAGER 09/28/2023 3:56 PM Length of Stay (Days): 3 GMLOS: 1.8 * Home Care - Marli Xiong RN - 10/02/2023 8:04 AM EST Narrative Writer following case for Discharge Needs. * Care Plan - Luis Yu RN - 10/01/2023 6:07 PM EST Problem: Daily Care Goal: Daily care needs are met Outcome: Progressing Problem: Pain - Adult Goal: Verbalizes/displays adequate comfort level or baseline comfort level Outcome: Progressing Flowsheets (Taken 10/01/2023 0819) Verbalizes/displays adequate comfort level or baseline comfort level: Encourage patient to monitor pain and request assistance * Care Coordination - Toshia Chery RN - 09/29/2023 10:33 AM EDT Care Managment Initial Assessment Date: 09/29/2023 Patient Name: Jadon Reyes : 1955 Patient Information Source of Information: Patient Cognition/Language: WFL - Within Functional Limits Permission given to speak with patient nutrition representative/caregiver as indicated: Confirmation of Payer with patient/family: Yes Payer Name: [employer] Medicare [place]: No Confirmation of Primary Care Physician: Confirmed PCP Name: Dr. Sousa Seen in last 2 years?: Yes Primary Caregiver: Self If assistance needed, confirmed caregiver ready, willing and able to care for patient at discharge: Confirmed with: Living Arrangements Current Residence: House Number of Floors 1 Number of Entry Steps: 5 or more Bed/Bath Levels: Both first floor Facility: Facility Name: Plan to Return: Lives with: Spouse/significant other Support Systems: Spouse/significant other Activities of Daily Living Ambulation: Independent Bathing/Dressing: Independent Elimination/Continence/Toileting: Independent Feeding: Independent Who Assists with Activities of Daily Living: Instrumental Activities of Daily Living Prescription Coverage: Yes Pharmacy Used: [facility] and mail order Medication Management: Mail order Transportation/Shopping: Independent Transportation Mode: Car Needs Assistance with Transportation at Discharge: No Meal Preparation: Independent Laundry/Cleaning: Independent Finances/Bill Paying: Independent Communication: Independent Types of Care Services/Equipment Utilized Care Services: Dialysis Type: Durable Medical Equipment: Patient's Goal/Discharge Plan Patient expects to be discharged to: home Discharge Planning Actions: No needs identified, Continue to follow Patient's Choice Rights and [employer] and Collaborative Relationships Disclosed as Indicated for Post-Acute Care: Interdisciplinary Team Engagement: Social Work Referral for: Additional Information: Patient admitted to CTV ICU with multivessel CAD. Spoke with patient at bedside, introduced self and role. Patient from home with , is independent, has PCP and prescription coverage, will have a ride home and TCC to follow medical plan-if CABG will need HHC. Toshia Chery RN documented in this [facility]11-11-2023 Nurse Note* Lisbeth Garrido RN - 10/07/2023 2:41 PM EST Discharge instructions gone over with patient, all questions answered. Patient taken to discharge in wheelchair. * DENZEL DOSHI - 10/07/2023 3:25 AM EST 10/07/23 @ 0340 Pt was assisted to/from bathroom using walker with RN assist. Complete bath done with gown and linen changed d/t soiled linen from diaphoresis. Pt's T improved to 97.8 F. Will continue to monitor pt. * DENZEL DOSHI - 10/06/2023 8:38 PM EST 10/06/23 @ 2037 Pt assessed. A&Ox4. VSS. Noted T 99.1 F (temporal). Will continue to monitor temperatures. Pt c/o intermittent chest discomfort to mid sternal chest site 02/03 with movement. Will medicate pt with scheduled Tylenol. documented in this [facility]11-11-2023 History of Present illness Narrative* ARCHIE Zapata CNP - 10/07/2023 1:47 PM EST Epicardial pacing wire cut without difficulty per protocol. Patient and nurse educated on possible complications. Patient tolerated well. Will continue to monitor. ARCHIE Zapata CNP 10/07/23 * Tila Holguin, SYSTEMS CHECKOUT MECHANIC - 10/07/2023 10:07 AM EST Images from the original note were not included. PHYSICAL THERAPY [facility] Note Name/MRN: Jadon Reyes ([id number]) Date of : 1955 Age: 67 y.o. Room/Bed: T1-110/T1-110 A Discharge Recommendation: Home with Home PT Equipment Needed: none Prior Level of Function ADL Assistance: Independent Ambulation Assistance: Independent Transfer Assistance: Independent Assessment Pt ambulated without a device, did well, no LOB. Wet, non-productive cough. Mod assist for supine>sit, supervision for transfer and gait. Educated pt on home walking program and reviewed P&C exercises. Rec home with assist upon discharge. Subjective Pt in bed, agreeable to PT. Pain: Pt denies any current pain. Medical Precautions: No active isolations Proper PPE donned/doffed in accordance with facility standards. Fall Risk: Kahn Fall Risk Score: 60 (High Risk) Precautions/Restrictions: Sternal Precautions: Lifting restriction of no more than 10 lbs, undated movement restrictions to keep your move in the tube. Family/Caregiver Present: none Objective Ambulation Ambulation 1 Assistive device(s) used: none Assist level: Supervision Distance (ft): 25ft Quality of gait: No LOB, slow mikey Ambulation 2 Assistive device(s) used: none Assist level: Supervision Distance (ft): 300ft Quality of gait: No LOB, slow mikey Transfers/Mobility Sit to stand: Supervision Stand to sit: Supervision X2 reps; EOB and toilet Device(s) used: none Exercises Exercises Upper Extremity: P&C ex #1-9 all x 10 reps each Other exercises Other exercises 1: I.S. x 10 reps, 1,000mL Bed Mobility Supine to sit: Mod Assist Scooting: SBA HOB flat. Cues for log roll and sternal precautions. Plan Continue acute PT per plan of care. Safety/Education Safety Safety Devices in place: call light within reach, left in chair, and nurse notified Restraints: No Education Education Given To: patient Education Provided: PT Goals, Gait Training, Home Exercise Program, Precautions, Transfer Training,Discharge Recommendations, Benefits of Increasing Activity, Breathing Techniques, and I.S. and log roll technique. Education Method: Verbal Barriers to Learning: None Education Outcome: Verbalized Understanding Outcome Measures AM-PAC AM-PAC Inpatient Mobility Raw Score (No Stairs) : 17 JH-HLM JH-HLM Score: Walked 250 ft or more (i.e. several laps on unit) Goals Patient Stated Goal: To return home with Encounter Problems Encounter Problems (Active) Cardiac Patient will perform bed mobility with independence in order to improve independence and prepare for out of bed mobility. (Progressing) Start: 10/04/23 Expected End: 10/18/23 Patient will complete sit to stand transfer with modified independence to least restrictive device in order to improve safety and prepare for out of bed mobility. (Progressing) Start: 10/04/23 Expected End: 10/18/23 Patient will ambulate 200 feet or ambulate 5 minutes with modified independence with RPE of 14 or lower. (Progressing) Start: 10/04/23 Expected End: 10/18/23 Patient will ascend and descend 1 stairs with modified independence rail for balance only. (Not Addressed) Start: 10/04/23 Expected End: 10/18/23 Patient will be independent with P&C exercises. (Progressing) Start: 10/04/23 Expected End: 10/18/23 Patient will be independent with managing secretions and home walking program. (Progressing) Start: 10/04/23 Expected End: 10/18/23 Pain - Adult Therapy Time Individual Co-treatment Time In 0855 Time Out 0912 Minutes 17 Timed Code Treatment Minutes: 17 Minutes (gait) Tila Holguin PTA * Tila Holguin PTA - 10/06/2023 1:47 PM EST Images from the original note were not included. PHYSICAL THERAPY [facility] Note Name/MRN: Jadon Reyes ([id number]) Date of : 1955 Age: 67 y.o. Room/Bed: T1-110/T1-110 A Discharge Recommendation: Home with Home PT Equipment Needed: none Prior Level of Function ADL Assistance: Independent Ambulation Assistance: Independent Transfer Assistance: Independent Assessment Pt progressing towards goals. Increase gait distance, tolerated stairs well. SBA for transfer, gaitand stairs. Cues for sternal precautions. Rec home with assist upon discharge. Subjective Pt reclined in chair, agreeable to PT. Pain: Pt denies any current pain. Medical Precautions: No active isolations Proper PPE donned/doffed in accordance with facility standards. Fall Risk: Kahn Fall Risk Score: 60 (High Risk) Precautions/Restrictions: Sternal Precautions: Lifting restriction of no more than 10 lbs, undated movement restrictions to keep your move in the tube. Lines/Drains/Airways: Inducer Overall Cognitive Status: WNL Overall Orientation Status: Oriented x4 Family/Caregiver Present: none Objective Ambulation Ambulation 1 Assistive device(s) used: rollator Assist level: SBA Distance (ft): 400ft Quality of gait: No LOB, slow mikey Ambulation 2 Assistive device(s) used: none Assist level: SBA Distance (ft): 15ft, 20ft Quality of gait: No LOB, uneven step length, slow mikey Transfers/Mobility Sit to stand: SBA Stand to sit: SBA X3 reps; cues for sternal precautions. Device(s) used: none Exercises Exercises Upper Extremity: P&C ex #1-9 all x 10 reps each Balance: dynamic standing with functional reaching, hand hygiene, SBA for balance. Plan Continue acute PT per plan of care. Safety/Education Safety Safety Devices in place: call light within reach and left in chair Restraints: No Education Education Given To: patient Education Provided: PT Goals, Gait Training, Home Exercise Program, Precautions, Discharge Recommendations, Breathing Techniques, and P&C exercises, sternal precautions Education Method: Verbal Barriers to Learning: None Education Outcome: Verbalized Understanding Outcome Measures AM-PAC JH-HLM -HLM Score: Walked 250 ft or more (i.e. several laps on unit) Goals Patient Stated Goal: To return home with Encounter Problems Encounter Problems (Active) Cardiac Patient will perform bed mobility with independence in order to improve independence and prepare for out of bed mobility. (Not Addressed) Start: 10/04/23 Expected End: 10/18/23 Patient will complete sit to stand transfer with modified independence to least restrictive device in order to improve safety and prepare for out of bed mobility. (Progressing) Start: 10/04/23 Expected End: 10/18/23 Patient will ambulate 200 feet or ambulate 5 minutes with modified independence with RPE of 14 or lower. (Progressing) Start: 10/04/23 Expected End: 10/18/23 Patient will ascend and descend 1 stairs with modified independence rail for balance only. (Progressing) Start: 10/04/23 Expected End: 10/18/23 Patient will be independent with P&C exercises. (Progressing) Start: 10/04/23 Expected End: 10/18/23 Patient will be independent with managing secretions and home walking program. (Progressing) Start: 10/04/23 Expected End: 10/18/23 Pain - Adult Therapy Time Individual Co-treatment Time In 1301 Time Out 1326 Minutes 25 Timed Code Treatment Minutes: 25 Minutes (gait; tp) Tila Holguin PTA * Nae Hagen RD - 10/06/2023 1:09 PM EST Nutrition Assessment Type and Reason for Visit: Reassess Nutrition Recommendations/Plan: Per MNT protocol, will discontinue carb limit (no hx DM, not requiring insulin, endocrinology signed off) Continue ONS: Ensure HP BID Provided heart healthy diet education as described in assessment RD will monitor overall nutrition status and will follow weekly Diet Education: Educated on heart healthy diet Learners: Patient Readiness: Acceptance Method: Explanation and Handout Response: Verbalizes Understanding Contact name and number provided. Malnutrition Assessment: Malnutrition Status: At risk for malnutrition (Comment) Context: Acute Illness Nutrition Assessment: Pt remains on CTV ICU s/p CABGx3 on 10/03. He reports appetite is coming back, states he ate well at breakfast, reports he is consuming ONS. Pt is agreeable to diet education at this time. RD provided heart healthy diet education including increasing fiber, vegetables, and whole fruit, avoiding useof salt as well as processed and other high sodium foods, limiting cholesterol intake, saturated fat vs unsaturated fat, choosing lean proteins and low fat dairy, reading nutrition labels, etc. Pt has heart healthy diet handout with [facility] RD phone number for reference. He verbalized understanding at conclusion of education. Estimated Daily Nutrient Needs: Energy Requirements Based On: Kcal/kg Weight Used for Energy Requirements: [place] (25-30 kcal/kg) Weight for Energy Calculation (kg): 80.7 kg Total Energy Requirements (kcals/day): 5732-1831 Weight Used for Protein Requirements: [place] (1.2-1.5 g/kg) Weight in Kg Used for Protein Requirements: 80.7 kg Estimated Total Protein (g/day): 97-121 Estimated Daily Total Fluid (ml/day): per MD Nutrition Related Findings: Nutrition History: Independent of feeding. Lives with: Spouse/significant other Teeth: Intact GI symptoms: Decreased appetite. Burt Scale Score: 18 .Wound Type: Surgical Incision Net IO Since Admission: 1,805.28 mL [10/06/23 1309] Edema: RUE Edema: None, LUE Edema: None, RLE Edema: Non-pitting, LLE Edema: Non-pitting Bowel Sounds (All Quadrants): Active Abdomen Inspection: Soft, Rounded Last BM Date: 10/05/23 Labs and meds reviewed: acetaminophen, 1,000 mg, Oral, q8h aspirin, 324 mg, Oral, Daily atorvastatin, 80 mg, Oral, Daily chlorhexidine, 15 mL, Mouth/Throat, BID heparin, 5,000 Units, SubCUTAneous, BID latanoprost, 1 drop, Both Eyes, Nightly Lidocaine, 1 patch, Topical, Daily methocarbamol, 500 mg, Oral, 3 times per day metoprolol tartrate, 25 mg, Oral, BID mupirocin, , Nasal, BID pantoprazole, 40 mg, Oral, qAM AC polyethylene glycol (PEG) 3350, 17 g, Oral, Daily senna-docusate sodium, 2 tablet, Oral, Nightly sodium chloride 0.9%, 10 mL, IntraVENous, 2 times per day lactated ringers, 250 mL BMP: Recent Labs 10/04/23 0005 10/05/23 0023 10/06/23 0229 NA 139 137 138 K 4.9 4.5 4.3 CL 108* 104 105 CO2 21* 25 26 BUN 22* 22* 24* CREATININE 1.46* 1.49* 1.28* GLUCOSE 130* 140* 113* CALCIUM 8.2* 8.6 8.7 MG 2.6* 2.4* 2.2 Recent Labs 10/04/23 1302 10/04/23 1408 10/04/23 1504 10/04/23 1757 10/05/23 0943 10/05/23 1213 POCGLU 126* 125* 131* 121* 144* 154* Lab Results Component Value Date HGBA1C 5.4 09/29/2023 Lab Results Component Value Date EFBP 55 09/29/2023 Current Nutrition Therapies: Adult diet Regular; 4 carb choices (60 gm/meal) Current Oral Intake Average Meal Intake: (improving) Average Supplements Intake: 76-100% Anthropometric Measures: Height: 182.9 cm (6') Current Body Weight: 98.2 kg (216 lb 7.9 oz) Admission Body Weight: 98.8 kg (217 lb 13 oz) (09/29) Usual Body Weight: 101 kg (222 lb) (06/08/23) % Weight Change (Calculated): -1.4 [place] Body Weight (lbs) (Calculated): 178 lbs [place] Body Weight (Kg) (Calculated): 81 kg % [place] Body Weight (Calculated): 123 % BMI (kg/m2) (Calculated): 29.4 BMI Categories: Overweight (BMI 25.0-29.9) Wt Readings from Last 10 Encounters: 10/06/23 98.2 kg (216 lb 7.9 oz) Nutrition Diagnosis: Increased nutrient needs related to increase demand for energy/nutrients as evidenced by wounds (surgical) Nutrition Interventions: Food and/or Nutrient Delivery: Modify Current Diet, Continue Oral Nutrition Supplement Nutrition Education/Counseling: Education completed Coordination of Nutrition Care: Continue to monitor while inpatient Goals: Goals: PO intake 75% or greater, prior to discharge Nutrition Monitoring and Evaluation: Behavioral-Environmental Outcomes: Knowledge or Skill Food/Nutrient Intake Outcomes: Food and Nutrient Intake, Supplement Intake Physical Signs/Symptoms Outcomes: Biochemical Data, GI Status, Skin, Weight Discharge Planning: Too soon to determine Nae Hagen RD, LD Contact: *[phone] or via [employer] chat * Leta Costello OT - 10/06/2023 11:05 AM EST Images from the original note were not included. OCCUPATIONAL THERAPY [facility] Name/MRN: Jadon Reyes ([id number]) Date: 10/06/2023 OT eval and treat order received. Patient chart reviewed. RN cleared patient for participation. Patient sleeping; patient easily awakened. Patient reports being tired and wanting to sleep more. Education provided. Will re-attempt at later date. Leta Costello OT * Marcela Wooten, HEALTH PROMOTER - STAKEHOLDER MANAGER - 10/06/2023 9:59 AM EST [facility] [place] [facility] [place] /Electrophysiology Progress Note HPI / Interval History: Mr. Reyes is s/p CABG x3 (BQMB-GGB-SVF, SVG-PDA, SVG-PL) on 10/03/[address] Beverly. He has past medical history of HTN, HLD, tobacco use. He was originally transferred from [place] with abnormal stress test. EF 55% He states he is feeling better. Chest tube removed. He walked around unit 2 times and denied chest pain. He had some mild dyspnea. Denies palpitations, dizziness, syncope, bleeding. On room air. Voiding well. Creatinine improving. Assessment/Plan Multivessel CAD s/p CABG x3 (VHFX-INV-MRN, SVG-PDA, SVG-PL) on 10/03/[address] Beverly - Simón. Continue aspirin, atorvastatin, metoprolol, PPI. Pain control per CTS, advance activity. Patient is diuresing. Will need cardiac rehab as outpatient. Decrease aspirin to 81 mg as outpatient. HTN -Controlled. Continue metoprolol. HLD - Continue atorvastatin 80 mg. Tobacco use - Ongoing cessation advised. Will discuss with Dr. Shelton. Follow up with Dr. Nicolas in [place]. Medications: acetaminophen, 1,000 mg, Oral, q8h aspirin, 324 mg, Oral, Daily atorvastatin, 80 mg, Oral, Daily chlorhexidine, 15 mL, Mouth/Throat, BID heparin, 5,000 Units, SubCUTAneous, BID latanoprost, 1 drop, Both Eyes, Nightly Lidocaine, 1 patch, Topical, Daily methocarbamol, 500 mg, Oral, 3 times per day metoprolol tartrate, 25 mg, Oral, BID mupirocin, , Nasal, BID pantoprazole, 40 mg, Oral, qAM AC polyethylene glycol (PEG) 3350, 17 g, Oral, Daily senna-docusate sodium, 2 tablet, Oral, Nightly sodium chloride 0.9%, 10 mL, IntraVENous, 2 times per day Infusion Medications: lactated ringers, 250 mL Physical Examination: Vitals: 10/06/23 0700 10/06/23 0800 10/06/23 0804 10/06/23 0900 BP: 117/62 BP Location: Left arm Patient Position: Sitting Pulse: 85 82 83 87 Resp: 18 Temp: 36.3 C (97.3 F) TempSrc: Temporal SpO2: 92% 97% 96% 96% Weight: Height: Intake/Output Summary (Last 24 hours) at 10/06/2023 0959 Last data filed at 10/06/2023 0300 Gross per 24 hour Intake -- Output 810 ml Net -810 ml Wt Readings from Last 3 Encounters: 10/06/23 216 lb 7.9 oz (98.2 kg) Physical Exam Vitals reviewed. Constitutional: General: He is not in acute distress. Appearance: Normal appearance. He is not diaphoretic. HENT: Head: Normocephalic. Mouth/Throat: Pharynx: No oropharyngeal exudate. Eyes: General: Right eye: No discharge. Left eye: No discharge. Extraocular Movements: Extraocular movements intact. Cardiovascular: Rate and Rhythm: Normal rate and regular rhythm. Pulses: Normal pulses. Heart sounds: Normal heart sounds. No murmur heard. No gallop. Pulmonary: Effort: Pulmonary effort is normal. No respiratory distress. Breath sounds: Examination of the right-lower field reveals decreased breath sounds. Examination ofthe left-lower field reveals decreased breath sounds. Decreased breath sounds present. Chest: Comments: Mid-sternal chest incision without redness or drainage. Abdominal: General: Bowel sounds are decreased. There is no distension. Palpations: Abdomen is soft. Tenderness: There is no abdominal tenderness. Musculoskeletal: General: Normal range of motion. Cervical back: Normal range of motion and neck supple. Right lower leg: No edema. Left lower leg: No edema. Skin: General: Skin is warm and dry. Capillary Refill: Capillary refill takes less than 2 seconds. Neurological: General: No focal deficit present. Mental Status: He is alert and oriented to person, place, and time. Cranial Nerves: No cranial nerve deficit. Psychiatric: Mood and Affect: Mood normal. Laboratory Tests: Recent Labs 10/03/23 1313 10/03/23 1731 10/04/23 0005 10/05/23 0023 10/06/23 0229 NA 142 142 139 137 138 K 4.4 4.9 4.9 4.5 4.3 CL 110* 108* 108* 104 105 CO2 23 23 21* 25 26 BUN 20 20 22* 22* 24* CREATININE 1.27* 1.41* 1.46* 1.49* 1.28* Recent Labs 10/03/23 1127 10/03/23 1128 10/03/23 1313 10/03/23 1731 10/04/23 0005 10/05/23 0023 10/06/23 0229 WBC 7.2 -- 9.6 -- 7.0 6.8 6.4 HGB 9.5* < > 11.5* 10.9 10.2* 9.5* 9.3* HCT 28.3* -- 34.1* -- 29.5* 27.9* 27.6* MCV 91.2 -- 91.4 -- 90.4 91.8 91.8 PLT 104* -- 112* -- 114* 96* 106* < > = values in this interval not displayed. No results for input(s): CKTOTAL, CKMB, CKMBINDEX, TROPONINI in the last 72 hours. No results for input(s): BNP in the last 72 hours. No results for input(s): TRIG, HDL, LDLCALC, CHOL in the last 72 hours. No results found for: LDLCHOLESTER Lab Results Component Value Date TSH 2.295 09/29/2023 EF BP Date Value Ref Range Status 09/29/2023 55 55 - 100 % Final 09/29/23 TRANSESOPHAGEAL ECHOCARDIOGRAM (CONTRAST/3D PRN) 10/03/2023 3:26 PM (Final) Interpretation Summary Left Ventricle: Left ventricle size is normal. Normal left ventricular systolic function. The EF byvisual approximation is 55%. Right Ventricle: Right ventricle size is normal. Normal systolic function. Left Atrium: Normal sized appendage. Normal appendage flow velocity. No left atrial appendage thrombus noted. Mitral Valve: Mild to moderate (1-2+) regurgitation with a centrally directed jet. Signed by: Argenis Awad MD on 10/03/2023 3:26 PM Other reports reviewed: Chest X-ray 10/06/23: IMPRESSION: Atelectasis at the bases. No new consolidation. Cardiac Tests: ECG: not done today. Telemetry findings reviewed: SR 80s EF BP Date Value Ref Range Status 09/29/2023 55 55 - 100 % Final ARCHIE Quach CNP Date Of Service 10/06/2023 * Maxim Irwin, ARCHIE Leonard CNP - 10/06/2023 5:48 AM EST Images from the original note were not included. Cardiothoracic Surgery/[facility] Progress Note PATIENT NAME: Jadon Reyes DATE: 10/06/23 HPI: 67 year old male patient with a known PMHx that includes HTN, HLD, and smoking. He presented to [facility] ED on 09/27/23 after he was called with results of a stress test he underwent. The stress test was completed earlier in the day on 09/27/23 and was positive for reversible ischemia. On admission in ED, his EKG showed T wave inversions in lead III and aVF, troponin negative. He was started on aspirin, heparin and Cardiology consulted. He had a cardiac catheterization on 09/28/23 which revealedmultivessel CAD. He was transferred to [facility] for CABG consideration, consented to surgical revascularization. Surgery/Procedure: 10/03/23: CABG x3 (SCHWAB-LAD, SVG-PDA, SVG-PL), LLE EVH Interval History: 10/06/23, POD# 03. Afebrile, NSR on tele, BP stable, on RA. Chest tubes removed yesterday. +BM. Up walking in unit with nursing this AM. Pain better controlled. Review of Systems Constitutional: Positive for fatigue. Negative for chills, diaphoresis and fever. Respiratory: Negative for cough, shortness of breath and wheezing. Cardiovascular: Negative for chest pain, palpitations and leg swelling. Gastrointestinal: Negative for abdominal distention, abdominal pain, nausea and vomiting. Neurological: Negative for dizziness, syncope and light-headedness. Objective: Vitals: BP: 110/65, MAP (mmHg): 79, BP Method: Automatic Heart Rate: 81 Resp: 16 Temp: 36.2 C (97.2 F), Temp Source: Temporal BMI (Calculated): 29.68 BMP: Recent Labs 10/03/23 1127 10/03/23 1313 10/04/23 0005 10/05/23 0023 10/06/239 NA 144 < > 139 137 138 K 3.8 < > 4.9 4.5 4.3 CL 112* < > 108* 104 105 CO2 21* < > 21* 25 26 BUN 21* < > 22* 22* 24* CREATININE 1.33* < > 1.46* 1.49* 1.28* CALCIUM 8.3* < > 8.2* 8.6 8.7 MG 4.0* < > 2.6* 2.4* 2.2 PHOS 3.3 -- -- -- -- < > = values in this interval not displayed. CBC: Recent Labs 10/04/23 0005 10/05/233 10/06/23228 WBC 7.0 6.8 6.4 HGB 10.2* 9.5* 9.3* HCT 29.5* 27.9* 27.6* PLT 114* 96* 106* MCV 90.4 91.8 91.8 RDW 14.2 14.4 14.2 INR: Recent Labs 10/03/23 1127 10/03/23 1313 10/04/23 0006 INR 1.3* 1.2* 1.1 Physical Exam Vitals reviewed. Constitutional: General: He is not in acute distress. Appearance: He is not ill-appearing or diaphoretic. Neck: Comments: Central line in place. Cardiovascular: Rate and Rhythm: Normal rate and regular rhythm. Pulses: Normal pulses. Heart sounds: No murmur heard. Pulmonary: Effort: Pulmonary effort is normal. Breath sounds: No wheezing, rhonchi or rales. Comments: Diminished throughout, shallow breaths. Abdominal: General: There is no distension. Palpations: Abdomen is soft. Tenderness: There is no abdominal tenderness. Musculoskeletal: General: No swelling. Skin: General: Skin is warm and dry. Capillary Refill: Capillary refill takes less than 2 seconds. Findings: Bruising present. Comments: MSI well approximated. No redness, warmth or drainage noted. Neurological: General: No focal deficit present. Mental Status: He is alert and oriented to person, place, and time. Psychiatric: Mood and Affect: Mood normal. Behavior: Behavior normal. Thought Content: Thought content normal. Judgment: Judgment normal. Assessment: Multivessel CAD s/p CABG HTN HLD Tobacco abuse, quit 2 weeks ago Post operative Pulm Management: Normal Post-operative Course Post-operative Atrial Fibrillation: []Yes [x] No Acute blood loss anemia/consumptive coagulopathy Plan: Patient Status: Telemetry Continue aspirin, statin and BB. -Will increase BB as needed for BP control. Pain better controlled, continue current regimen. Bowel regimen. DVT prophy. Allow to auto diurese d/t increase creatinine. Will remove introducer today, not drawing back, appears kinked. Endocrinology following for blood glucose management. PT/OT: Continue to assess (10/05/23). Pulmonary hygiene: IS and Acapella GI prophy: PO protonix DVT prophy:TEDs, SCDs, and Heparin SubQ Disposition: If patient progresses physically, may DC over weekend. Central Line: [x]Yes [] No Arterial Line: []Yes [x] No Forde: [x]Yes [] No Restraints: []Yes [x] No Patient discussed and plan of day developed from multidisciplinary rounds between Cardiothoracic Surgery (Cardiothoracic Surgeon, ANIBAL) and Critical Care Attending Cardiac Core Medications: ASA, Statin, and BB EF: 55% (10/03/23) Blood Conservation: Platelets transfused intra-op. Paper Rewinder Operator: Matt Cardiology Associated attestation - Carlos Ospina DO - 10/06/2023 9:25 AM EST I have personally performed a [id number] diagnostic evaluation on this patient on date of biiiitz41/10/23 . History, labs, imaging studies, and electronic medical record have been reviewed by me. This note documented by the []feed house supervisor [x]ANIBAL reflects my history, exam, and medical decision making. I have reviewed and agree with the care plan. Changes were made in the orders as necessary. ROS documentation was reviewed and negative unless otherwise stated in HPI. Additional pertinent interval history, ROS, and physical exam findings: No overnight events. Assessment: CABGx3 10/03/23 CAD s/p CABG Tobacco use HTN Stress hyperglycemia (resolved) Plan: Agree w/ plan as documented in ANIBAL note. Ongoing DC planning. Total critical care time for this patient with life-threatening unstable organ failure, including direct patient contact, management of life support systems, review of data including imaging and labs, and discussions with other team members and physicians at least 35min so far today, excluding procedures. * ARCHIE Cortez CNP - 10/05/2023 1:47 PM EST Images from the original note were not included. Cardiothoracic Surgery Note PATIENT NAME: Jadon Reyes : 1955 (67 y.o.) TODAY'S DATE: 10/05/2023 Objective: BP 116/72 Pulse 64 Temp 36.3 C (97.4 F) (Temporal) Resp 18 Ht 6' (1.829 m) Wt 218 lb 14.7oz (99.3 kg) SpO2 99% BMI 29.69 kg/m Chest tubes assessed: no air leak, subcutaneous air noted. Chest tubes removed without difficulty and dressing applied. Patient tolerated well. Patient and nurse educated on possible complications toobserve for. Will continue to monitor. * Tila Holguin PTA - 10/05/2023 12:29 PM EST Images from the original note were not included. PHYSICAL THERAPY [facility] Note Name/MRN: Jadon Reyes ([id number]) Date of : 1955 Age: 67 y.o. Room/Bed: T1-110/T1-110 A Discharge Recommendation: Inpatient Rehab and Continue to assess pending progress Equipment Needed: TBD at next level of care Prior Level of Function ADL Assistance: Independent Ambulation Assistance: Independent Transfer Assistance: Independent Assessment Pt making slow steady progress. Min assist for transfer and gait. Weakness and decrease endurance continue to limit pt. Cues for sternal precautions. Educated pt on P&C exercises. Rec rehab upon discharge but could progress to home with assist. Subjective Pt reclined in chair, agreeable to PT. Pain: 0-10 pain scale: 3/10 Location: incision Medical Precautions: No active isolations Proper PPE donned/doffed in accordance with facility standards. Fall Risk: Kahn Fall Risk Score: 50 (High Risk) Precautions/Restrictions: Sternal Precautions: Lifting restriction of no more than 10 lbs, undated movement restrictions to keep your move in the tube. Lines/Drains/Airways: Inducer, chest tube, PIV, Overall Cognitive Status: WNL Overall Orientation Status: Oriented x4 Family/Caregiver Present: none Objective Ambulation Ambulation 1 Assistive device(s) used: rollator Assist level: Min Assist Distance (ft): 75ft x 2 Quality of gait: uneven step length, slow mikey, double stance time, SOBOE Transfers/Mobility Sit to stand: Min Assist Stand to sit: Min Assist X1 from chair. Cues for sternal precautions. Device(s) used: rollator Exercises Exercises Upper Extremity: P&C ex #1-9 all x 10 reps each Other exercises Other exercises?: Yes Other exercises 1: I.S. x 10 reps, 500-750mL Balance: standing with rollator, wide ADALID, mild AP sway, min assist for balance. Plan Continue acute PT per plan of care. Safety/Education Safety Safety Devices in place: call light within reach, left in chair, and no alarms engaged upon entry Restraints: No Education Education Given To: patient Education Provided: PT Goals, Gait Training, Home Exercise Program, Precautions, Transfer Training,Breathing Techniques, and I.S. P&C exercises Education Method: Verbal Barriers to Learning: None Education Outcome: Verbalized Understanding Outcome Measures AM-PAC AM-PAC Inpatient Mobility Raw Score (No Stairs) : 15 JH-HLM JH-HLM Score: Walked 25 ft or more (i.e. walked outside of room) Goals Patient Stated Goal: To return home with Encounter Problems Encounter Problems (Active) Cardiac Patient will perform bed mobility with independence in order to improve independence and prepare for out of bed mobility. (Not Addressed) Start: 10/04/23 Expected End: 10/18/23 Patient will complete sit to stand transfer with modified independence to least restrictive device in order to improve safety and prepare for out of bed mobility. (Progressing) Start: 10/04/23 Expected End: 10/18/23 Patient will ambulate 200 feet or ambulate 5 minutes with modified independence with RPE of 14 or lower. (Progressing) Start: 10/04/23 Expected End: 10/18/23 Patient will ascend and descend 1 stairs with modified independence rail for balance only. (Not Addressed) Start: 10/04/23 Expected End: 10/18/23 Patient will be independent with P&C exercises. (Progressing) Start: 10/04/23 Expected End: 10/18/23 Patient will be independent with managing secretions and home walking program. (Progressing) Start: 10/04/23 Expected End: 10/18/23 Pain - Adult Therapy Time Individual Co-treatment Time In 1115 Time Out 1138 Minutes 23 Timed Code Treatment Minutes: 23 Minutes (gait; tp) Tila Holguin PTA * Marcela Wooten APRN - STAKEHOLDER MANAGER - 10/05/2023 11:58 AM EST [facility] [place] [facility] [place] /Electrophysiology Progress Note HPI / Interval History: Mr. Reyes is s/p CABG x3 (XIDY-ENN-HRL, SVG-PDA, SVG-PL) on 10/03/[address] Beverly. He has past medical history of HTN, HLD, tobacco use. He was originally transferred from [facility] with abnormal stress test. EF 55% This morning, he is up in chair. He states he is feeling better today. Denies chest pain, dyspnea, palpitations, dizziness, syncope, swelling, bleeding. He has been up to bathroom. Assessment/Plan Multivessel CAD s/p CABG x3 (ATAP-EBT-CYY, SVG-PDA, SVG-PL) on 10/03/[address] Beverly - Simón. Continue aspirin, atorvastatin, metoprolol, PPI. Pain control per CTS, advance activity. Patient is diuresing. Will need cardiac rehab as outpatient. Decrease aspirin to 81 mg as outpatient. HTN -Controlled. Continue metoprolol. HLD - Continue atorvastatin 80 mg. Tobacco use - Ongoing cessation advised. Will discuss with Dr. Shelton. Medications: acetaminophen, 1,000 mg, Oral, q8h aspirin, 324 mg, Oral, Daily atorvastatin, 80 mg, Oral, Daily chlorhexidine, 15 mL, Mouth/Throat, BID heparin, 5,000 Units, SubCUTAneous, BID insulin lispro, 0-6 Units, SubCUTAneous, TID WC latanoprost, 1 drop, Both Eyes, Nightly Lidocaine, 1 patch, Topical, Daily magnesium hydroxide, 30 mL, Oral, Daily methocarbamol, 1,000 mg, Oral, 3 times per day metoclopramide, 10 mg, IntraVENous, q6h metoprolol tartrate, 25 mg, Oral, BID mupirocin, , Nasal, BID pantoprazole, 40 mg, Oral, qAM AC polyethylene glycol (PEG) 3350, 17 g, Oral, Daily senna-docusate sodium, 2 tablet, Oral, Nightly sodium chloride 0.9%, 10 mL, IntraVENous, 2 times per day Infusion Medications: lactated ringers, 250 mL Physical Examination: Vitals: 10/05/23 0900 10/05/23 0905 10/05/23 1000 10/05/23 1100 BP: 116/72 BP Location: Patient Position: Pulse: 90 89 87 70 Resp: Temp: TempSrc: SpO2: 99% 96% 99% Weight: Height: Intake/Output Summary (Last 24 hours) at 10/05/2023 1158 Last data filed at 10/05/2023 1000 Gross per 24 hour Intake 458 ml Output 1192 ml Net -734 ml Wt Readings from Last 3 Encounters: 10/04/23 218 lb 14.7 oz (99.3 kg) Physical Exam Vitals reviewed. Constitutional: General: He is not in acute distress. Appearance: Normal appearance. He is not diaphoretic. Interventions: Nasal cannula in place. Comments: Up in chair HENT: Head: Normocephalic. Mouth/Throat: Pharynx: No oropharyngeal exudate. Eyes: General: Right eye: No discharge. Left eye: No discharge. Extraocular Movements: Extraocular movements intact. Pupils: Pupils are equal, round, and reactive to light. Cardiovascular: Rate and Rhythm: Normal rate and regular rhythm. Pulses: Normal pulses. Heart sounds: Normal heart sounds. No murmur heard. No gallop. Pulmonary: Effort: Pulmonary effort is normal. No respiratory distress. Breath sounds: Examination of the left-lower field reveals rales. Rales present. Chest: Comments: Mid-sternal chest incision without redness or drainage. Chest tube intact with serosanguinous drainage. Abdominal: General: Bowel sounds are decreased. There is no distension. Palpations: Abdomen is soft. Tenderness: There is no abdominal tenderness. Musculoskeletal: General: Normal range of motion. Cervical back: Normal range of motion and neck supple. Right lower leg: No edema. Left lower leg: No edema. Skin: General: Skin is warm and dry. Capillary Refill: Capillary refill takes less than 2 seconds. Neurological: General: No focal deficit present. Mental Status: He is alert and oriented to person, place, and time. Cranial Nerves: No cranial nerve deficit. Psychiatric: Mood and Affect: Mood normal. Laboratory Tests: Recent Labs 10/03/23 1127 10/03/23 1313 10/03/23 1731 10/04/23 0005 10/05/23 0023 NA 144 142 142 139 137 K 3.8 4.4 4.9 4.9 4.5 CL 112* 110* 108* 108* 104 CO2 21* 23 23 21* 25 BUN 21* 20 20 22* 22* CREATININE 1.33* 1.27* 1.41* 1.46* 1.49* Recent Labs 10/03/23 0005 10/03/23 1127 10/03/23 1128 10/03/23 1313 10/03/23 1731 10/04/23 0005 10/05/23 0023 WBC 5.5 7.2 -- 9.6 -- 7.0 6.8 HGB 13.2 9.5* 9.8 11.5* 10.9 10.2* 9.5* HCT 39.0* 28.3* -- 34.1* -- 29.5* 27.9* MCV 91.4 91.2 -- 91.4 -- 90.4 91.8 PLT 109* 104* -- 112* -- 114* 96* No results for input(s): CKTOTAL, CKMB, CKMBINDEX, TROPONINI in the last 72 hours. No results for input(s): BNP in the last 72 hours. No results for input(s): TRIG, HDL, LDLCALC, CHOL in the last 72 hours. No results found for: LDLCHOLESTER Lab Results Component Value Date TSH 2.295 09/29/2023 EF BP Date Value Ref Range Status 09/29/2023 55 55 - 100 % Final 09/29/23 TRANSESOPHAGEAL ECHOCARDIOGRAM (CONTRAST/3D PRN) 10/03/2023 3:26 PM (Final) Interpretation Summary Left Ventricle: Left ventricle size is normal. Normal left ventricular systolic function. The EF byvisual approximation is 55%. Right Ventricle: Right ventricle size is normal. Normal systolic function. Left Atrium: Normal sized appendage. Normal appendage flow velocity. No left atrial appendage thrombus noted. Mitral Valve: Mild to moderate (1-2+) regurgitation with a centrally directed jet. Signed by: Argenis Awad MD on 10/03/2023 3:26 PM Other reports reviewed: Chest X-ray 10/05/23: IMPRESSION: 1. Cardiomegaly. 2. Low lung volumes with bibasilar opacities likely reflecting atelectasis and/or infiltrate, left greater than right. 3. Support devices, as above. 4. No significant one-day change. Cardiac Tests: ECG: not done today. Telemetry findings reviewed: SR 80s EF BP Date Value Ref Range Status 09/29/2023 55 55 - 100 % Final ARCHIE Quach CNP Date Of Service 10/05/2023 * ARCHIE Greenwood CNP - 10/05/2023 9:10 AM EST Department of Internal Medicine Division of Endocrinology, Diabetes, & Metabolism Endocrinology Note Patient Name: Jadon Reyes : 1955 AGE: 67 y.o. Room/Bed: T1-110/T1-110 A Admission Date: 09/29/2023 Visit Date: 10/05/2023 Reason for Endocrine Consult: post op CABG Provider/Team Requesting Consult: CTS PCP: JUAN SOUSA MD Outpt Assistant Hall Director: N/A ASSESSMENT: S/P CABG x 3 10/03/2023 Stress induced hyperglycemia HTN/HLD smoker PLAN: Patient's blood sugars have been stable and <145 mg/dL over the last 24 hours without requiring any insulin administration. We will sign off at this time. If the patient develops consistently elevated blood sugars on their morning basic metabolic panel, >150 mg/dL for 2 consecutive days, please contact our inpatient consultation team for reevaluation. 4 carb choice diet ICU goal <180 GMF goal <150 POCT BG ACHS Hypoglycemia per protocol Carb controlled diet when advanced ANTICIPATED ENDOCRINE HOME GOING RECOMMENDATIONS: Optimized for Discharge from Endocrine standpoint: No Home Going Endocrine Rx Recommendations-- TBD not likely needed Outpt Follow Up-- PCP SUBJECTIVE/HPI: CHIEF COMPLAINT: No chief complaint on file. Patient presented to [facility] after was abnormal. He was transferred to [facility] after C showed multivessal CAD Patient underwent CABG x 3 10/03/23 Per EHR no hx DM or DM medications Lab Results Component Value Date HGBA1C 5.4 09/29/2023 Today- See BGLs below Has not received any sliding scale insulin since drip discontinued 10/04 at 1400 Has only eaten small bites. Was able to walk in halls this am with nursing C/O pain to insional site - tolerable Glucose Date/Time Value Ref Range Status 10/04/2023 05:57 PM 121 (H) 70 - 100 mg/dL Final 10/04/2023 03:04 PM 131 (H) 70 - 100 mg/dL Final 10/04/2023 02:08 PM 125 (H) 70 - 100 mg/dL Final 10/04/2023 01:02 PM 126 (H) 70 - 100 mg/dL Final 10/04/2023 12:07 PM 120 (H) 70 - 100 mg/dL Final 10/04/2023 10:55 AM 121 (H) 70 - 100 mg/dL Final Review of Systems All other systems reviewed and are negative. ROS negative except for those mentioned in HPI. OBJECTIVE: Vitals: 10/05/23 0026 10/05/23 0330 10/05/23 0408 10/05/23 0905 BP: 132/72 116/72 BP Location: Patient Position: Pulse: 78 80 89 Resp: 18 Temp: 36.7 C (98.1 F) TempSrc: Temporal SpO2: 94% 98% 98% Weight: Height: Physical Exam Vitals reviewed. HENT: Head: Normocephalic. Cardiovascular: Rate and Rhythm: Normal rate and regular rhythm. Pulses: Normal pulses. Pulmonary: Effort: Pulmonary effort is normal. Breath sounds: Normal breath sounds. Abdominal: General: Bowel sounds are normal. Musculoskeletal: General: Normal range of motion. Skin: General: Skin is warm and dry. Comments: Sternal incision clean and dry Left leg wrapped 24 hour intake/output: Intake/Output Summary (Last 24 hours) at 10/05/2023 0911 Last data filed at 10/05/2023 0600 Gross per 24 hour Intake 458 ml Output 1042 ml Net -584 ml Diet: Adult diet Regular; 4 carb choices (60 gm/meal) Medications (as per EMR): HomeMeds: Current Outpatient Medications Medication Instructions aspirin 81 mg, Oral, Daily latanoprost (Xalatan) 0.005 % ophthalmic solution 1 drop, Both Eyes, Nightly losartan-hydroCHLOROthiazide (Hyzaar) 100-12.5 MG tablet 1 tablet, Oral, Daily Scheduled Meds:acetaminophen, 1,000 mg, Oral, q8h aspirin, 324 mg, Oral, Daily atorvastatin, 80 mg, Oral, Daily chlorhexidine, 15 mL, Mouth/Throat, BID heparin, 5,000 Units, SubCUTAneous, BID insulin lispro, 0-6 Units, SubCUTAneous, TID WC latanoprost, 1 drop, Both Eyes, Nightly Lidocaine, 1 patch, Topical, Daily magnesium hydroxide, 30 mL, Oral, Daily methocarbamol, 1,000 mg, Oral, 3 times per day metoclopramide, 10 mg, IntraVENous, q6h metoprolol tartrate, 25 mg, Oral, BID mupirocin, , Nasal, BID pantoprazole, 40 mg, Oral, qAM AC polyethylene glycol (PEG) 3350, 17 g, Oral, Daily senna-docusate sodium, 2 tablet, Oral, Nightly sodium chloride 0.9%, 10 mL, IntraVENous, 2 times per day Continuous Infusions:lactated ringers, 250 mL PRN Meds:PRN medications: albumin human, calcium gluconate, dextrose, dextrose, glucagon (rDNA), glucose, ipratropium-albuterol, lactated ringers, magnesium sulfate OR magnesium sulfate, morphinesulfate OR morphine sulfate, ondansetron ODT OR ondansetron, oxyCODONE OR oxyCODONE, potassium chloride OR potassium chloride OR potassium chloride, potassium chloride CR, sodium chloride, sodium chloride 0.9% Diagnostic Workup: I reviewed pertinent Laboratory results, Radiographic results, and Other Clinical Notes at the timeof today's encounter. Labs: No components found for: LABA1C No components found for: EAG Lab Results Component Value Date NA 137 10/05/2023 K 4.5 10/05/2023 CL 104 10/05/2023 CO2 25 10/05/2023 BUN 22 (H) 10/05/2023 CREATININE 1.49 (H) 10/05/2023 GLUCOSE 140 (H) 10/05/2023 CALCIUM 8.6 10/05/2023 No results found for: CHLPL, CHOL No results found for: TRIG No results found for: HDL No results found for: LDLCALC No results found for: VLDL No results found for: CHOLHDLRATIO No results found for: [id number] Lab Results Component Value Date TSH 2.295 09/29/2023 Radiology reportsas per the Radiologist Radiology: ECG 12 lead one time STAT Result Date: 10/01/2023 Sinus rhythm Probable left atrial enlargement Inferior infarct, old Electronically Signed On 10-01-2023 15:41:11 EST by Ap Shelton ECG 12 lead in a.m. Result Date: 09/30/2023 Sinus bradycardia Inferior infarct, old Electronically Signed On 09-30-2023 20:45:53 EDT by Ap Shelton Vascular US lower extremity vein mapping for bypass bilateral Result Date: 09/29/2023 Vessel diameters as noted in the table below. No evidence of superficial thrombosis in the right lower extremity. No evidence of superficial thrombosis in the left lower extremity. Vascular US carotid artery duplex bilateral Result Date: 09/29/2023 <50% stenosis in the right internal carotid artery. Mild and heterogeneous plaque (proximal) in the right internal carotid artery. <50% stenosis in the left internal carotid artery. Mild and heterogeneous plaque (proximal) in the left internal carotid artery. Normal antegrade flow involving the right vertebral artery. Normal antegrade flow involving the left vertebral artery. Transthoracic echocardiogram (TTE) complete with contrast, bubble, strain, and 3D PRN Result Date: 09/29/2023 Left Ventricle: Left ventricle size is normal. Mildly increased wall thickness. Mass index 2D is 108.5 g/m2. Findings consistent with mild concentric hypertrophy. Normal left ventricular systolic function. EF by 2D Simpsons Biplane is 55%. Normal wall motion. Right Ventricle: Right ventricle size is normal. Normal systolic function. Aorta: Normal sized sinuses of Valsalva. Mildly dilated ascending aorta. Ao ascending diameter is 3.8 cm. No significant valvular abnormalities. XR chest 1 view Result Date: 09/29/2023 [facility] 1955 [id number] Exam Date/Time: 09/29/2023 08:13 Procedure: XR CHEST 1 VIEW Ordering Provider: WARREN JENNIFER Reason For Exam: preop cabg CLINICAL INDICATION: preop cabg COMPARISON: None TECHNIQUE: Single portable AP radiograph of the chest. FINDINGS: LUNGS/PLEURA:Clear with no acute infiltrate or effusion. No pneumothorax. The trachea is midline. MEDIASTINUM:Heart size and mediastinal contours are normal. VASCULARITY: Normal BONES:Unremarkable Lungs clear with no acute cardiopulmonary disease process. Report Dictated on Electronically Signed By: Jose Lawrence MD Electronically Signed Date/Time: 09/29/2023 9:24AM EDT History/Other: Past Medical History: Past Medical History: Diagnosis Date Glaucoma Hypertension Past Surgical History: History reviewed. No pertinent surgical history. Allergy(ies): Allergies Allergen Reactions Lisinopril Cough Family History: Family History Problem Relation Name Age of Onset Coronary artery disease Father Coronary artery disease Maternal Grandfather Heart attack Maternal Grandfather Coronary artery disease Paternal Grandfather Heart attack Paternal Grandfather Social History: Social History Tobacco Use Smoking status: Former Types: Cigars, Cigarettes Smokeless tobacco: Former Types: Chew Substance Use Topics Alcohol use: Yes Comment: Occasional Drug use: Never Portions of the information within this encounter were entered using an electronic dictation system. Best attempts were made to edit/proofread the information prior to note completion. Despite the review of information, some errors may remain. If there are questions related to the information contained within the note please contact the signing physician directly. I spent 15 minutes with the pt which involved coordination of care, medical evaluation, review of records, and/or counseling of the pt regarding his/her condition/disease state/prognosis on the date of this note. Associated attestation - Hanna Díaz MD - 10/05/2023 4:29 PM EST I performed a history and physical examination of the patient. I have reviewed the patient's chart including pertinent history, medications, labs, radiology, and other reports. I reviewed the resident/ANIBAL's note, agree with the documented findings and plan of care (with modifications noted if any),and discussed the management plan. I have performed a substantive portion of the the medical decision making. Pt eating a little more. Had fruit and juice this AM. No lunch yet. Drinking Ensure. BG stable. Ambulating. Chest tubes removed. No SOB. BP 116/72 Pulse 64 Temp 36.3 C (97.4 F) (Temporal) Resp 18 Ht 6' (1.829 m) Wt 218 lb 14.7oz (99.3 kg) SpO2 99% BMI 29.69 kg/m Awake, not in distress, RRR, chest incision intact, abdomen soft, non-tender, no edema. Dx: Stress hyperglycemia. CAD s/p CABG. Plan: - discontinue SS insulin - no need for regular glucose monitoring - discussed importance of healthy lifestyle - will sign off Total time 20 minutes which include review of records, counseling, management, and coordination of care as documented in note. * ARCHIE Cortez CNP - 10/05/2023 6:12 AM EST Images from the original note were not included. Cardiothoracic Surgery/CCM Progress Note PATIENT NAME: Jadon Reyes DATE: 10/05/23 HPI: 67 year old male patient with a known PMHx that includes HTN, HLD, and smoking. He presented to [facility] ED on 09/27/23 after he was called with results of a stress test he underwent. The stress test was completed earlier in the day on 09/27/23 and was positive for reversible ischemia. On admission in ED, his EKG showed T wave inversions in lead III and aVF, troponin negative. He was started on aspirin, heparin and Cardiology consulted. He had a cardiac catheterization on 09/28/23 which revealedmultivessel CAD. He was transferred to [facility] for CABG consideration, consented to surgical revascularization. Surgery/Procedure: 10/03/23: CABG x3 (SCHWAB-LAD, SVG-PDA, SVG-PL), LLE EVH Interval History: 10/05/23, POD# 02. Afebrile, NSR on tele, BP stable on 2L NC. Pain present. Was able to walk on unit with nursing yesterday. No acute events overnight. No BM yet but passing gas. Denies abdominal pain or nausea. Review of Systems Constitutional: Positive for fatigue. Negative for chills, diaphoresis and fever. Respiratory: Negative for cough, shortness of breath and wheezing. Cardiovascular: Negative for chest pain, palpitations and leg swelling. Gastrointestinal: Negative for abdominal distention, abdominal pain, nausea and vomiting. Neurological: Negative for dizziness, syncope and light-headedness. Objective: CT output cc/24hrs: 210 UO cc/24hrs: 1,002 Vitals: BP: 132/72, MAP (mmHg): 88, BP Method: Automatic Heart Rate: 80 Resp: 18 Temp: 36.7 C (98.1 F), Temp Source: Temporal BMI (Calculated): 29.68 BMP: Recent Labs 10/03/23 1127 10/03/23 1313 10/03/23 1731 10/04/23 0005 10/05/23 0023 NA 144 142 142 139 137 K 3.8 4.4 4.9 4.9 4.5 CL 112* 110* 108* 108* 104 CO2 21* 23 23 21* 25 BUN 21* 20 20 22* 22* CREATININE 1.33* 1.27* 1.41* 1.46* 1.49* CALCIUM 8.3* 8.2* 8.1* 8.2* 8.6 MG 4.0* 3.2* -- 2.6* 2.4* PHOS 3.3 -- -- -- -- CBC: Recent Labs 10/03/23 1313 10/03/23 1731 10/04/23 0005 10/05/23 0023 WBC 9.6 -- 7.0 6.8 HGB 11.5* 10.9 10.2* 9.5* HCT 34.1* -- 29.5* 27.9* PLT 112* -- 114* 96* MCV 91.4 -- 90.4 91.8 RDW 14.2 -- 14.2 14.4 INR: Recent Labs 10/03/23 1127 10/03/23 1313 10/04/23 0006 INR 1.3* 1.2* 1.1 Physical Exam Vitals reviewed. Constitutional: General: He is not in acute distress. Appearance: He is not ill-appearing or diaphoretic. Neck: Comments: Central line in place. Cardiovascular: Rate and Rhythm: Normal rate and regular rhythm. Pulses: Normal pulses. Heart sounds: No murmur heard. Pulmonary: Effort: Pulmonary effort is normal. Breath sounds: No wheezing, rhonchi or rales. Comments: Diminished throughout, shallow breaths. Abdominal: General: There is no distension. Palpations: Abdomen is soft. Tenderness: There is no abdominal tenderness. Comments: Chest tubes in place. Genitourinary: Comments: Forde. Musculoskeletal: General: No swelling. Skin: General: Skin is warm and dry. Capillary Refill: Capillary refill takes less than 2 seconds. Findings: Bruising present. Comments: MSI well approximated. No redness, warmth or drainage noted. Neurological: General: No focal deficit present. Mental Status: He is alert and oriented to person, place, and time. Psychiatric: Mood and Affect: Mood normal. Behavior: Behavior normal. Thought Content: Thought content normal. Judgment: Judgment normal. Assessment: Multivessel CAD s/p CABG HTN HLD Tobacco abuse, quit 2 weeks ago Post operative Pulm Management: Normal Post-operative Course Post-operative Atrial Fibrillation: []Yes [x] No Acute blood loss anemia/consumptive coagulopathy Plan: Patient Status: Telemetry Remove forde. Likely remove chest tubes once up to chair. Continue aspirin, statin and BB. -Will increase BB as needed for BP control. Add scheduled robaxin for pain. No toradol d/t increased creatinine. Bowel regimen. -Gas noted on chest xray. -Add reglan and MOM. Daily labs and chest xray. -PRN electrolyte replacement protocols. Endocrinology following for blood glucose management. PT/OT: Will need assessed. Pulmonary hygiene: IS and Acapella GI prophy: PO protonix DVT prophy:TEDs, SCDs, and Heparin SubQ Disposition: TBD. Central Line: [x]Yes [] No Arterial Line: []Yes [x] No Forde: [x]Yes [] No Restraints: []Yes [x] No Patient discussed and plan of day developed from multidisciplinary rounds between Cardiothoracic Surgery (Cardiothoracic Surgeon, ANIBAL) and Critical Care Attending Cardiac Core Medications: ASA, Statin, and BB EF: 55% (10/03/23) Blood Conservation: Platelets transfused intra-op. Paper Rewinder Operator: Matt Cardiology Associated attestation - Carlos Ospina DO - 10/05/2023 7:33 PM EST I have personally performed a [id number] diagnostic evaluation on this patient on date of okjykco66/09/23 . History, labs, imaging studies, and electronic medical record have been reviewed by me. This note documented by the []feed house supervisor [x]ANIBAL reflects my history, exam, and medical decision making. I have reviewed and agree with the care plan. Changes were made in the orders as necessary. ROS documentation was reviewed and negative unless otherwise stated in HPI. Additional pertinent interval history, ROS, and physical exam findings: No overnight events. Assessment: CABGx3 10/03/23 CAD s/p CABG Tobacco use HTN Stress hyperglycemia Plan: Agree w/ plan as noted in ANIBAL note. Total critical care time for this patient with life-threatening unstable organ failure, including direct patient contact, management of life support systems, review of data including imaging and labs, and discussions with other team members and physicians at least 35min so far today, excluding procedures. * Hanna Díaz MD - 10/04/2023 10:07 PM EST ENDOCRINOLOGY ATTESTATION NOTE: Please see note from Jade Ceballos. I performed a history and physical examination of the patient. I have reviewed the patient's chart including pertinent history, medications, labs, radiology, and other reports. I reviewed the resident/ANIBAL's note, agree with the documented findings and plan of care (with modifications noted if any),and discussed the management plan. I have performed a substantive portion of the the medical decision making. Pt not eating. Poor appetite. Has been drinking Ensure. No n/v. No SOB. Ambulating. BG stable. Minimal insulin requirements from drip. BP 136/72 Pulse 83 Temp 36.8 C (98.3 F) Resp 18 Ht 6' (1.829 m) Wt 218 lb 14.7 oz (99.3 kg) SpO2 98% BMI 29.69 kg/m Awake, not in distress, RRR, chest incision intact, clear breath sounds, +chest tubes, abdomen soft, non-tender, no edema. Dx: Stress hyperglycemia. CAD s/p CABG. Plan: - will transition to subcutaneous insulin with Humalog SS - continue blood glucose monitoring - discussed postop hyperglycemia management and goals of therapy - patient will unlikely require any pharmacotherapy on discharge for hyperglycemia - encouraged adequate nutrition - will follow Total time 20 minutes which include review of records, counseling, management, and coordination of care as documented in note. * Jade Ceballos, HEALTH PROMOTER - STAKEHOLDER MANAGER - 10/04/2023 3:24 PM EST Department of Internal Medicine Division of Endocrinology, Diabetes, & Metabolism Endocrinology Note Patient Name: Jadon Reyes : 1955 AGE: 67 y.o. Room/Bed: T1-110/T1-110 A Admission Date: 09/29/2023 Visit Date: 10/04/2023 Reason for Endocrine Consult: post op CABG Provider/Team Requesting Consult: CTS PCP: JUAN SOUSA MD Outpt Assistant Hall Director: N/A ASSESSMENT: S/P CABG x 3 10/03/2023 Stress induced hyperglycemia HTN/HLD smoker PLAN: Discontinue insulin drip Initiate humalog low dose sliding scale ac Meals Change poc glucose checks to ac/hs 4 carb choice diet ICU goal <180 GMF goal <150 POCT BG ACHS Hypoglycemia per protocol Carb controlled diet when advanced ANTICIPATED ENDOCRINE HOME GOING RECOMMENDATIONS: Optimized for Discharge from Endocrine standpoint: No Home Going Endocrine Rx Recommendations-- TBD not likely needed Outpt Follow Up-- PCP SUBJECTIVE/HPI: CHIEF COMPLAINT: No chief complaint on file. Patient presented to [facility] after was abnormal. He was transferred to [facility] after C showed multivessal CAD Patient underwent CABG x 3 10/03/23 Per EHR no hx DM or DM medications Lab Results Component Value Date HGBA1C 5.4 09/29/2023 Today- Has required minimal amount of insulin and doses have been decreasing through out the day Patient is sitting in chair at bedside C/o states that it has not been controlled Has not had any food since surgey Denies nausea, SOB, does have a cough at times Glucose Date/Time Value Ref Range Status 10/04/2023 03:04 PM 131 (H) 70 - 100 mg/dL Final 10/04/2023 02:08 PM 125 (H) 70 - 100 mg/dL Final 10/04/2023 01:02 PM 126 (H) 70 - 100 mg/dL Final 10/04/2023 12:07 PM 120 (H) 70 - 100 mg/dL Final 10/04/2023 10:55 AM 121 (H) 70 - 100 mg/dL Final 10/04/2023 10:04 AM 114 (H) 70 - 100 mg/dL Final Review of Systems Unable to perform ROS: Acuity of condition ROS negative except for those mentioned in HPI. OBJECTIVE: Vitals: 10/04/23 1046 10/04/23 1100 10/04/23 1200 10/04/23 1500 BP: 130/77 116/68 BP Location: Left arm Patient Position: Sitting Pulse: 98 88 89 80 Resp: 18 Temp: 36.8 C (98.2 F) TempSrc: Oral SpO2: 93% 97% (!) 87% Weight: Height: Physical Exam Vitals reviewed. HENT: Head: Normocephalic. Cardiovascular: Rate and Rhythm: Normal rate and regular rhythm. Pulses: Normal pulses. Pulmonary: Effort: Pulmonary effort is normal. Breath sounds: Normal breath sounds. Abdominal: General: Bowel sounds are normal. Musculoskeletal: General: No swelling. Normal range of motion. Skin: General: Skin is warm and dry. Comments: Sternal incision clean and dry Left leg wrapped Neurological: Comments: Sleepy, recently extubated 24 hour intake/output: Intake/Output Summary (Last 24 hours) at 10/04/2023 1524 Last data filed at 10/04/2023 1300 Gross per 24 hour Intake 2539 ml Output 1402 ml Net 1137 ml Diet: Adult diet Regular Medications (as per EMR): HomeMeds: Current Outpatient Medications Medication Instructions aspirin 81 mg, Oral, Daily latanoprost (Xalatan) 0.005 % ophthalmic solution 1 drop, Both Eyes, Nightly losartan-hydroCHLOROthiazide (Hyzaar) 100-12.5 MG tablet 1 tablet, Oral, Daily Scheduled Meds:acetaminophen, 1,000 mg, Oral, q8h aspirin, 324 mg, Oral, Daily atorvastatin, 80 mg, Oral, Daily ceFAZolin, 2,000 mg, IntraVENous, q8h chlorhexidine, 15 mL, Mouth/Throat, BID heparin, 5,000 Units, SubCUTAneous, BID latanoprost, 1 drop, Both Eyes, Nightly Lidocaine, 1 patch, Topical, Daily metoprolol tartrate, 25 mg, Oral, BID mupirocin, , Nasal, BID pantoprazole, 40 mg, IntraVENous, Daily polyethylene glycol (PEG) 3350, 17 g, Oral, Daily senna-docusate sodium, 2 tablet, Oral, Nightly sodium chloride 0.9%, 10 mL, IntraVENous, 2 times per day Continuous Infusions:insulin regular, 1-50 Units/hr, Last Rate: 0.5 Units/hr (10/04/23 1505) lactated ringers, 250 mL sodium chloride, 20 mL/hr, Last Rate: 20 mL/hr (10/03/23 1300) PRN Meds:PRN medications: albumin human, calcium gluconate, dextrose, dextrose, glucagon (rDNA), glucose, ipratropium-albuterol, lactated ringers, magnesium hydroxide, magnesium sulfate OR magnesium sulfate, morphine sulfate OR morphine sulfate, ondansetron ODT OR ondansetron, oxyCODONEOR oxyCODONE, potassium chloride OR potassium chloride OR potassium chloride, potassiumchloride CR, sodium chloride, sodium chloride 0.9% Diagnostic Workup: I reviewed pertinent Laboratory results, Radiographic results, and Other Clinical Notes at the timeof today's encounter. Labs: No components found for: LABA1C No components found for: EAG Lab Results Component Value Date NA 139 10/04/2023 K 4.9 10/04/2023 CL 108 (H) 10/04/2023 CO2 21 (L) 10/04/2023 BUN 22 (H) 10/04/2023 CREATININE 1.46 (H) 10/04/2023 GLUCOSE 130 (H) 10/04/2023 CALCIUM 8.2 (L) 10/04/2023 No results found for: CHLPL, CHOL No results found for: TRIG No results found for: HDL No results found for: LDLCALC No results found for: VLDL No results found for: CHOLHDLRATIO No results found for: [id number] Lab Results Component Value Date TSH 2.295 09/29/2023 Radiology reportsas per the Radiologist Radiology: ECG 12 lead one time STAT Result Date: 10/01/2023 Sinus rhythm Probable left atrial enlargement Inferior infarct, old Electronically Signed On 10-01-2023 15:41:11 EST by Ap Shelton ECG 12 lead in a.m. Result Date: 09/30/2023 Sinus bradycardia Inferior infarct, old Electronically Signed On 09-30-2023 20:45:53 EDT by Ap Shelton Vascular US lower extremity vein mapping for bypass bilateral Result Date: 09/29/2023 Vessel diameters as noted in the table below. No evidence of superficial thrombosis in the right lower extremity. No evidence of superficial thrombosis in the left lower extremity. Vascular US carotid artery duplex bilateral Result Date: 09/29/2023 <50% stenosis in the right internal carotid artery. Mild and heterogeneous plaque (proximal) in the right internal carotid artery. <50% stenosis in the left internal carotid artery. Mild and heterogeneous plaque (proximal) in the left internal carotid artery. Normal antegrade flow involving the right vertebral artery. Normal antegrade flow involving the left vertebral artery. Transthoracic echocardiogram (TTE) complete with contrast, bubble, strain, and 3D PRN Result Date: 09/29/2023 Left Ventricle: Left ventricle size is normal. Mildly increased wall thickness. Mass index 2D is 108.5 g/m2. Findings consistent with mild concentric hypertrophy. Normal left ventricular systolic function. EF by 2D Simpsons Biplane is 55%. Normal wall motion. Right Ventricle: Right ventricle size is normal. Normal systolic function. Aorta: Normal sized sinuses of Valsalva. Mildly dilated ascending aorta. Ao ascending diameter is 3.8 cm. No significant valvular abnormalities. XR chest 1 view Result Date: 09/29/2023 [facility] 1955 [id number] Exam Date/Time: 09/29/2023 08:13 Procedure: XR CHEST 1 VIEW Ordering Provider: WARREN JENNIFER Reason For Exam: preop cabg CLINICAL INDICATION: preop cabg COMPARISON: None TECHNIQUE: Single portable AP radiograph of the chest. FINDINGS: LUNGS/PLEURA:Clear with no acute infiltrate or effusion. No pneumothorax. The trachea is midline. MEDIASTINUM:Heart size and mediastinal contours are normal. VASCULARITY: Normal BONES:Unremarkable Lungs clear with no acute cardiopulmonary disease process. Report Dictated on Electronically Signed By: Jose Lawrence MD Electronically Signed Date/Time: 09/29/2023 9:24AM EDT History/Other: Past Medical History: Past Medical History: Diagnosis Date Glaucoma Hypertension Past Surgical History: History reviewed. No pertinent surgical history. Allergy(ies): Allergies Allergen Reactions Lisinopril Cough Family History: Family History Problem Relation Name Age of Onset Coronary artery disease Father Coronary artery disease Maternal Grandfather Heart attack Maternal Grandfather Coronary artery disease Paternal Grandfather Heart attack Paternal Grandfather Social History: Social History Tobacco Use Smoking status: Former Types: Cigars, Cigarettes Smokeless tobacco: Former Types: Chew Substance Use Topics Alcohol use: Yes Comment: Occasional Drug use: Never Portions of the information within this encounter were entered using an electronic dictation system. Best attempts were made to edit/proofread the information prior to note completion. Despite the review of information, some errors may remain. If there are questions related to the information contained within the note please contact the signing physician directly. I spent 15 minutes with the pt which involved coordination of care, medical evaluation, review of records, and/or counseling of the pt regarding his/her condition/disease state/prognosis on the date of this note. * Shanti Khan - 10/04/2023 11:01 AM EST Images from the original note were not included. PHYSICAL THERAPY [facility] Initial Evaluation Name/MRN: Jadon Reyes ([id number]) Evaluation Date: 10/04/2023 Date of : 1955 Admission Date: 09/29/2023 6:59 AM Age: 67 y.o. Room/Bed: T1-110/T1-110 A Discharge Recommendation: Inpatient Rehab and Continue to assess pending progress Equipment Needed: TBD at next level of care Assessment IMPRESSION: Pt admitted to [facility] for CAD and is s/p CABGx3 10/03/2023. Pt performed scooting in the chair with min A and performed sit <> stand with mod A x2. Upon standing pt began feeling lightheaded. Pt stood for ~ 1 minute then requested to sit. Lightheadedness lasted more than 5 minutes andnurse was notified. Blood pressure was 130/77 mmHG at time of lightheadedness and O2 sats were between 91- 96%. Will continue to progress as able. Pt displays decreased endurance, balance, and strength thus decreasing overall functional mobility. Continued PT services required to allow pt to return to prior level of function. Recommends discharge to IP Rehab at this time. Will continue to assess. Pt likely to progress to home with assist prn. Diagnosis: CAD s/p CABGx3 10/03/2023 Prognosis: good Performance Deficits /Impairments: Increased Pain, Decreased Functional Mobility, and Decreased Strength Decision Making: Medium Complexity Subjective Pt reported he is in pain and is not feeling well. Pt just received pain med from RN. Pt agreeable to therapy. Pain: 0-10 pain scale: 8/10 Location: sternal incision Past Medical History: Past Medical History: Diagnosis Date Glaucoma Hypertension Past Surgical History: History reviewed. No pertinent surgical history. Admission Diagnosis: Patient Active Problem List Diagnosis Date Noted CAD in [place] artery 09/28/2023 Medical Precautions: No active isolations Proper PPE donned/doffed in accordance with facility standards. Fall Risk: Kahn Fall Risk Score: 35 (Medium Risk) Precautions/Restrictions: Sternal Precautions: Lifting restriction of no more than 10 lbs, undated movement restrictions to keep your move in the tube. Lines/Drains/Airways: Inducer, chest tube, PIV, Forde, Pacer Wires Family/Caregiver Present: none Overall Cognitive Status: WNL Overall Orientation Status: Oriented x4 Vision: wears glasses at all times and and are being used during the eval Hearing: normal Social/Functional History Patient admitted from home. Lives With: Spouse Type of Home: single family home Home Layout: Single Level Home Home Access: Stairs to Enter without Rails (# of stairs: 1) Bathroom Shower/Tub: Toilet: N/A Home Equipment: cane Homemaking Responsibilities: Independent Receives Help From: Significant other Active Alternative Education Teacher: Yes Prior Level of Function ADL Assistance: Independent Ambulation Assistance: Independent Transfer Assistance: Independent Objective Lower Extremity Assessment AROM: Impaired: due to move in tube precautions PROM: Not assessed this session Strength: WFL Bed Mobility: Did not assess at this date because pt in chair at beginning of session Transfers Sit to stand: Mod Assist, x2 Person Assist Stand to sit: Mod Assist, x2 Person Assist Pt required verbal cues to maintain precautions. Educated on rocking method an splinting while standing Pt required increased time to complete and required physical assist to initiate movement Pt lightheaded with stand. Pt requested to sit after ~1 minute of standing. BP was 130/77 mmHG. O2 sat in between 91-96% during activity. Ambulation Did not assess this session. Due to lightheadedness Outcome Measures AM-PAC How much HELP from another person do you currently need Turning from your back to your side while in a flat bed without using bedrails?: A Lot Moving from lying on your back to sitting on the side of a flat bed without using bedrails?: A Lot Moving to and from a bed to a chair (including a wheelchair)?: A Lot Standing up from a chair using your arms (wheelchair or bedside chair)?: A Lot Walking in a hospital room?: A Lot Stair climbing assessed?: No AM-PAC Inpatient Mobility Raw Score (No Stairs) : 10 JH-HLM -HLM Score: Static standing (1 or more minutes) Plan Pt would benefit from skilled acute PT services to address Strengthening, Balance Training, Functional Mobility Training, Endurance Training, Gait Training, Stair Training, and Chest PT . Frequency: 5x/week for 2 weeks Barriers: New weightbearing/ROM restrictions and Decreased endurance Safety/Education Safety Safety Devices in place: call light within reach, left in chair, gait belt, and patient at risk forfalls Restraints: No Education Education Given To: patient Education Provided: PT Role, PT Goals, Precautions, Transfer Training, Energy Conservation, and Move in the tube precautions, lifting restriction Education Method: Verbal Barriers to Learning: None Education Outcome: Verbalized Understanding and Continued Education Needed Goals Patient Stated Goal: To return home with Encounter Problems Encounter Problems (Active) Cardiac Patient will perform bed mobility with independence in order to improve independence and prepare for out of bed mobility. Start: 10/04/23 Expected End: 10/18/23 Patient will complete sit to stand transfer with modified independence to least restrictive device in order to improve safety and prepare for out of bed mobility. Start: 10/04/23 Expected End: 10/18/23 Patient will ambulate 200 feet or ambulate 5 minutes with modified independence with RPE of 14 or lower. Start: 10/04/23 Expected End: 10/18/23 Patient will ascend and descend 1 stairs with modified independence rail for balance only. Start: 10/04/23 Expected End: 10/18/23 Patient will be independent with P&C exercises. Start: 10/04/23 Expected End: 10/18/23 Patient will be independent with managing secretions and home walking program. Start: 10/04/23 Expected End: 10/18/23 Pain - Adult Therapy Time Individual Co-treatment Time In 1026 Time Out 1052 Minutes 26 Shantisherwin Khan Patient's Physical Therapy Plan of Care supervision is transferred to a [facility] Therapy Services Physical Therapist. Goals and/or treatment plan was established in collaboration with patient/family/other representatives. * Marcela Wooten APRN - STAKEHOLDER MANAGER - 10/04/2023 8:53 AM EST [facility] Cardiology /Electrophysiology Progress Note HPI / Interval History: Mr. Reyes is s/p CABG x3 ([id number], SVG-PDA, SVG-PL) on 10/03/[address] Beverly. He has past medical history of HTN, HLD, tobacco use. He was originally transferred from [facility] with abnormal stress test. EF 55% This morning, he walked with PT and had some dizziness/ lightheadedness. He denies angina, dyspnea,palpitations, syncope, swelling, bleeding. He is having post operative pain, and complains of pain when taking a deep breath. Assessment/Plan Multivessel CAD s/p CABG x3 ([id number], SVG-PDA, SVG-PL) on 10/03/[address] Beverly - Stable. Continue aspirin, atorvastatin, metoprolol, PPI. Pain control per CTS, advance activity. Will need cardiac rehab as outpatient. HTN -Controlled. Continue metoprolol. HLD - Continue atorvastatin 80 mg. Tobacco use - Ongoing cessation advised. Will discuss with Dr. Shelton. Medications: acetaminophen, 1,000 mg, Oral, q8h aspirin, 324 mg, Oral, Daily atorvastatin, 80 mg, Oral, Daily ceFAZolin, 2,000 mg, IntraVENous, q8h chlorhexidine, 15 mL, Mouth/Throat, BID heparin, 5,000 Units, SubCUTAneous, BID latanoprost, 1 drop, Both Eyes, Nightly Lidocaine, 1 patch, Topical, Daily metoprolol tartrate, 25 mg, Oral, BID mupirocin, , Nasal, BID pantoprazole, 40 mg, IntraVENous, Daily polyethylene glycol (PEG) 3350, 17 g, Oral, Daily senna-docusate sodium, 2 tablet, Oral, Nightly sodium chloride 0.9%, 10 mL, IntraVENous, 2 times per day Infusion Medications: insulin regular, 1-50 Units/hr, Last Rate: 1 Units/hr (10/04/23 0805) lactated ringers, 250 mL sodium chloride, 20 mL/hr, Last Rate: 20 mL/hr (10/03/23 1300) Physical Examination: Vitals: 10/04/23 0700 10/04/23 0800 10/04/23 0823 10/04/23 0842 BP: 127/64 127/64 BP Location: Left arm Patient Position: Sitting Pulse: 84 88 82 Resp: 18 Temp: 37.2 C (98.9 F) TempSrc: Temporal SpO2: 97% 97% Weight: Height: 6' (1.829 m) Intake/Output Summary (Last 24 hours) at 10/04/2023 0853 Last data filed at 10/04/2023 0700 Gross per 24 hour Intake 5269.28 ml Output 4275 ml Net 994.28 ml Wt Readings from Last 3 Encounters: 10/04/23 218 lb 14.7 oz (99.3 kg) Physical Exam Vitals reviewed. Constitutional: General: He is not in acute distress. Appearance: Normal appearance. He is not diaphoretic. Comments: Up in chair HENT: Head: Normocephalic. Mouth/Throat: Pharynx: No oropharyngeal exudate. Eyes: General: Right eye: No discharge. Left eye: No discharge. Extraocular Movements: Extraocular movements intact. Pupils: Pupils are equal, round, and reactive to light. Cardiovascular: Rate and Rhythm: Normal rate and regular rhythm. Pulses: Normal pulses. Heart sounds: Normal heart sounds. No murmur heard. No gallop. Pulmonary: Effort: Pulmonary effort is normal. No respiratory distress. Breath sounds: Normal breath sounds. Chest: Comments: Mid-sternal chest incision without redness or drainage. Chest tube intact with serosanguinous drainage. Abdominal: General: Bowel sounds are decreased. There is no distension. Palpations: Abdomen is soft. Tenderness: There is no abdominal tenderness. Genitourinary: Comments: Forde with yellow urine. Musculoskeletal: General: Normal range of motion. Cervical back: Normal range of motion and neck supple. Right lower leg: No edema. Left lower leg: No edema. Skin: General: Skin is warm and dry. Capillary Refill: Capillary refill takes less than 2 seconds. Neurological: General: No focal deficit present. Mental Status: He is alert and oriented to person, place, and time. Cranial Nerves: No cranial nerve deficit. Psychiatric: Mood and Affect: Mood normal. Laboratory Tests: Recent Labs 10/03/23 0005 10/03/23 1127 10/03/23 1313 10/03/23 1731 10/04/23 0005 NA 138 144 142 142 139 K 4.4 3.8 4.4 4.9 4.9 CL 109* 112* 110* 108* 108* CO2 22 21* 23 23 21* BUN 23* 21* 20 20 22* CREATININE 1.28* 1.33* 1.27* 1.41* 1.46* Recent Labs 10/03/23 0005 10/03/23 1127 10/03/23 1128 10/03/23 1313 10/03/23 1731 10/04/23 0005 WBC 5.5 7.2 -- 9.6 -- 7.0 HGB 13.2 9.5* 9.8 11.5* 10.9 10.2* HCT 39.0* 28.3* -- 34.1* -- 29.5* MCV 91.4 91.2 -- 91.4 -- 90.4 PLT 109* 104* -- 112* -- 114* No results for input(s): CKTOTAL, CKMB, CKMBINDEX, TROPONINI in the last 72 hours. No results for input(s): BNP in the last 72 hours. No results for input(s): TRIG, HDL, LDLCALC, CHOL in the last 72 hours. No results found for: LDLCHOLESTER Lab Results Component Value Date TSH 2.295 09/29/2023 EF BP Date Value Ref Range Status 09/29/2023 55 55 - 100 % Final 09/29/23 TRANSESOPHAGEAL ECHOCARDIOGRAM (CONTRAST/3D PRN) 10/03/2023 3:26 PM (Final) Interpretation Summary Left Ventricle: Left ventricle size is normal. Normal left ventricular systolic function. The EF byvisual approximation is 55%. Right Ventricle: Right ventricle size is normal. Normal systolic function. Left Atrium: Normal sized appendage. Normal appendage flow velocity. No left atrial appendage thrombus noted. Mitral Valve: Mild to moderate (1-2+) regurgitation with a centrally directed jet. Signed by: Argenis Awad MD on 10/03/2023 3:26 PM Other reports reviewed: Chest X-ray 10/04/23: Findings: Cardiac silhouette is enlarged. Suspect retrocardiac infiltrate or atelectasis on the left. [place]Marta catheter is in similar position. There does appear to be a mediastinal and left-sided chest tube present. No sizable pneumothorax noted. Cardiac Tests: ECG: IMPRESSION: Sinus rhythm Probable left atrial enlargement Left ventricular hypertrophy Inferior infarct, old Telemetry findings reviewed: SR 80-90s EF BP Date Value Ref Range Status 09/29/2023 55 55 - 100 % Final ARCHIE Quach CNP Date Of Service 10/04/2023 * Maxim Irwin, ARCHIE Leonard CNP - 10/04/2023 5:48 AM EST Images from the original note were not included. Cardiothoracic Surgery/CCM Progress Note PATIENT NAME: Jadon Reyes DATE: 10/04/23 HPI: 67 year old male patient with a known PMHx that includes HTN, HLD, and smoking. He presented to [facility] ED on 09/27/23 after he was called with results of a stress test he underwent. The stress test was completed earlier in the day on 09/27/23 and was positive for reversible ischemia. On admission in ED, his EKG showed T wave inversions in lead III and aVF, troponin negative. He was started on aspirin, heparin and Cardiology consulted. He had a cardiac catheterization on 09/28/23 which revealedmultivessel CAD. He was transferred to [facility] for CABG consideration, consented to surgical revascularization. Surgery/Procedure: 10/03/23: CABG x3 (SCHWAB-LAD, SVG-PDA, SVG-PL), LLE EVH Interval History: 10/04/23, POD# 01: Afebrile, NSR on tele, BP stable, extubated post-op, now on RA. Patient sitting up in chair this AM. Pain present, tolerable. Denies nausea and SOB. Received albumin overnight and weaned off of low dose norepinephrine. Current IV Drips: Insulin- 1u/hr A-line: Arterial Line BP 1: 131/53 Invasive Hemodynamic Monitoring Hemodynamic Monitoring Additional Assessment: Yes Blood Temperature: 37.8 C (100 F) PAP: 44/14 PAP (Mean): 25 mmHg CVP (mmHg): 6 mmHg CO (L/min): 6.22 L/min CI (L/min/m2): 2.89 L/min/m2 SVR (dyne*sec)/cm5: 784 (dyne*sec)/cm5 Review of Systems Constitutional: Positive for fatigue. Negative for chills, diaphoresis and fever. Respiratory: Negative for cough, shortness of breath and wheezing. Cardiovascular: Negative for chest pain, palpitations and leg swelling. Gastrointestinal: Negative for abdominal distention, abdominal pain, nausea and vomiting. Neurological: Negative for dizziness, syncope and light-headedness. Objective: CT output cc/24hrs: 450 UO cc/24hrs: 2,940 Vitals: BP: (!) 146/83, MAP (mmHg): 101, BP Method: Arterial line Heart Rate: 77 Resp: 16 Temp: 37.8 C (100 F), Temp Source: Core BMI (Calculated): 29.68 BMP: Recent Labs 10/03/23112610/03/23131210/03/23173010/04/23 0005 NA 144 142 142 139 K 3.8 4.4 4.9 4.9 CL 112* 110* 108* 108* CO2 21* 23 23 21* BUN 21* 20 20 22* CREATININE 1.33* 1.27* 1.41* 1.46* CALCIUM 8.3* 8.2* 8.1* 8.2* MG 4.0* 3.2* -- 2.6* PHOS 3.3 -- -- -- CBC: Recent Labs 10/03/23112610/03/23112710/03/23131210/03/23173010/04/23 0005 WBC 7.2 -- 9.6 -- 7.0 HGB 9.5* < > 11.5* 10.9 10.2* HCT 28.3* -- 34.1* -- 29.5* PLT 104* -- 112* -- 114* MCV 91.2 -- 91.4 -- 90.4 RDW 14.2 -- 14.2 -- 14.2 < > = values in this interval not displayed. INR: Recent Labs 10/03/23112610/03/23 13110/04/23 0006 INR 1.3* 1.2* 1.1 Physical Exam Vitals reviewed. Constitutional: General: He is not in acute distress. Appearance: He is not ill-appearing or diaphoretic. Neck: Comments: Central line in place. Cardiovascular: Rate and Rhythm: Normal rate and regular rhythm. Pulses: Normal pulses. Heart sounds: No murmur heard. Pulmonary: Effort: Pulmonary effort is normal. Breath sounds: No wheezing, rhonchi or rales. Comments: Diminished throughout, shallow breaths. Abdominal: General: There is no distension. Palpations: Abdomen is soft. Tenderness: There is no abdominal tenderness. Comments: Chest tubes in place. Genitourinary: Comments: Forde. Musculoskeletal: General: No swelling. Skin: General: Skin is warm and dry. Capillary Refill: Capillary refill takes less than 2 seconds. Findings: Bruising present. Comments: MSI well approximated. No redness, warmth or drainage noted. Neurological: General: No focal deficit present. Mental Status: He is alert and oriented to person, place, and time. Psychiatric: Mood and Affect: Mood normal. Behavior: Behavior normal. Thought Content: Thought content normal. Judgment: Judgment normal. Assessment: Multivessel CAD s/p CABG HTN HLD Tobacco abuse, quit 2 weeks ago Post operative Pulm Management: Normal Post-operative Course Post-operative Atrial Fibrillation: []Yes [x] No Acute blood loss anemia/consumptive coagulopathy Plan: Patient Status: ICU Remove [place], remove arterial line this AM. Out of bed, to chair this AM. Chest tubes to water seal. Can DC forde today vs tomorrow. Start aspirin, statin and BB. -Will titrate BB as BP allows. Heparin DVT prophy. Oxycodone q4h PO, IV morphine q4h. No toradol d/t elevated creatinine. Daily labs and chest xray. -PRN electrolyte replacement protocols. Advance diet. Bowel regimen. Endocrinology following for blood glucose management. PT/OT: Will need assessed. Pulmonary hygiene: IS and Acapella GI prophy: IV protonix DVT prophy:TEDs, SCDs, and Heparin SubQ Disposition: TBD. Central Line: [x]Yes [] No Arterial Line: [x]Yes [] No Forde: [x]Yes [] No Restraints: []Yes [x] No Patient discussed and plan of day developed from multidisciplinary rounds between Cardiothoracic Surgery (Cardiothoracic Surgeon, ANIBAL) and Critical Care Attending Cardiac Core Medications: ASA, Statin, and BB EF: 55% (10/03/23) Blood Conservation: Platelets transfused intra-op. Paper Rewinder Operator: Matt Cardiology Associated attestation - Carlos Ospina DO - 10/04/2023 3:02 PM EST I have personally performed a [id number] diagnostic evaluation on this patient on date of weeiqja16/08/23 . History, labs, imaging studies, and electronic medical record have been reviewed by me. This note documented by the []feed house supervisor [x]ANIBAL reflects my history, exam, and medical decision making. I have reviewed and agree with the care plan. Changes were made in the orders as necessary. ROS documentation was reviewed and negative unless otherwise stated in HPI. Additional pertinent interval history, ROS, and physical exam findings: No overnight events. Off levo. Assessment: CABGx3 10/03/23 CAD s/p CABG Tobacco use HTN Stress hyperglycemia Plan: Cardiac meds per ANIBAL Note. Ambulate and PT/OT. Glucose controlled. Sugar mgmt per Endo. Total care time for this patient including direct patient contact, management of life support systems, review of data including imaging and labs, and discussions with other team members and physicians at least 30min so far today, excluding procedures. * ARCHIE Ring CNP - 10/03/2023 6:29 AM EST Pt is ready for surgery this am. Family at bedside pt rested well overnight. Family would like to have a room for the son to work in during the surgery I put them im the family counseling room. * ARCHIE Ring CNP - 10/02/2023 4:03 PM EST Subjective R op teaching provided to the patient and family Will hold coreg Will give remeron for sleep Assessment/Plan Principal Problem: CAD in [place] artery * ARCHIE Ring CNP - 10/02/2023 7:26 AM EST Images from the original note were not included. Cardiothoracic Surgery/[facility] Progress Note PATIENT NAME: Jadon Reyes DATE: 10/02/23 HPI: Mr. Jadon Reyes is a 67 year old male patient with a known PMHx that includes HTN, HLD, and smoking. He presented to [facility] ED on 09/27/23 after he was called with results of a stress test he underwent. The stress test was completed earlier in the day on 09/27/23 and was positive for reversibleischemia. On admission in ED, his EKG showed T wave inversions in lead III and aVF, troponin negative. He was started on aspirin, heparin and Cardiology consulted. He had a cardiac catheterization on09/28/23 which revealed multivessel CAD. He has planned CABG with Dr. Beverly 10/03/23 Interval History: 10/02/23. No acute changes overnight pt is eager to have surgery by anxious. Review of Systems Constitutional: Negative for chills, diaphoresis, fatigue and fever. Respiratory: Negative for cough, shortness of breath and wheezing. Cardiovascular: Negative for chest pain, palpitations and leg swelling. Neurological: Negative for dizziness, syncope and light-headedness. Objective: Carotid Ultrasounds (09/29/23) Interpretation Summary <50% stenosis in the right internal carotid artery. Mild and heterogeneous plaque (proximal) in the right internal carotid artery. <50% stenosis in the left internal carotid artery. Mild and heterogeneous plaque (proximal) in the left internal carotid artery. Normal antegrade flow involving the right vertebral artery. Normal antegrade flow involving the left vertebral artery. Transthoracic Echo (09/29/23) Interpretation Summary Left Ventricle: Left ventricle size is normal. Mildly increased wall thickness. Mass index 2D is 108.5 g/m2. Findings consistent with mild concentric hypertrophy. Normal left ventricular systolic function. EF by 2D Simpsons Biplane is 55%. Normal wall motion. Right Ventricle: Right ventricle size is normal. Normal systolic function. Aorta: Normal sized sinuses of Valsalva. Mildly dilated ascending aorta. Ao ascending diameter is 3.8 cm. No significant valvular abnormalities. Vitals: BP: (!) 143/83, MAP (mmHg): 99, BP Method: Automatic Heart Rate: 58 Resp: 16 Temp: 36.4 C (97.5 F), Temp Source: Temporal BMI (Calculated): 28.95 BMP: Recent Labs 10/01/235 NA 136 K 4.0 CL 105 CO2 21* BUN 23* CREATININE 1.23 CALCIUM 8.6 CBC: Recent Labs 10/01/235 WBC 4.6 HGB 13.8 HCT 41.2 PLT 109* MCV 91.2 RDW 14.2 INR: No results for input(s): INR in the last 72 hours. Physical Exam Vitals reviewed. Constitutional: General: He is not in acute distress. Appearance: He is not ill-appearing or diaphoretic. Cardiovascular: Rate and Rhythm: Normal rate and regular rhythm. Pulses: Normal pulses. Heart sounds: No murmur heard. Pulmonary: Effort: Pulmonary effort is normal. Breath sounds: No wheezing, rhonchi or rales. Abdominal: General: Bowel sounds are normal. There is no distension. Palpations: Abdomen is soft. Musculoskeletal: General: No swelling. Normal range of motion. Skin: General: Skin is warm and dry. Capillary Refill: Capillary refill takes less than 2 seconds. Neurological: General: No focal deficit present. Mental Status: He is alert and oriented to person, place, and time. Psychiatric: Mood and Affect: Mood normal. Behavior: Behavior normal. Thought Content: Thought content normal. Judgment: Judgment normal. Assessment: Multivessel CAD HTN HLD Tobacco abuse, quit 2 weeks ago Plan: Patient Status: Telemetry - Pre-Op education later this afternoon with family - Pre-op testing reviewed - Consider CT chest GI prophy: PO protonix DVT prophy:TEDs, SCDs, and Lovenox SubQ * Adriana Torres - 10/01/2023 2:41 PM EST Nutrition rescreen completed. Chart reviewed. Patient to be monitored and followed by the diet elevator service technician. Adriana Torres, DT * Maxim Irwin APRN - FRANCO - 10/01/2023 10:21 AM EST Images from the original note were not included. Cardiothoracic Surgery/[facility] Progress Note PATIENT NAME: Jadon Reyes DATE: 10/01/23 HPI: Mr. Jadon Reyes is a 67 year old male patient with a known PMHx that includes HTN, HLD, and smoking. He presented to [facility] ED on 09/27/23 after he was called with results of a stress test he underwent. The stress test was completed earlier in the day on 09/27/23 and was positive for reversibleischemia. On admission in ED, his EKG showed T wave inversions in lead III and aVF, troponin negative. He was started on aspirin, heparin and Cardiology consulted. He had a cardiac catheterization on09/28/23 which revealed multivessel CAD. He was transferred to [facility] for Cardiothoracic Surgery to evaluate for surgical revascularization. Interval History: 10/01/23. Afebrile, NSR/SB on tele, BP stable with intermittent hypertensive episodes. No complaints this AM. Independent on unit, chest pain free. Review of Systems Constitutional: Negative for chills, diaphoresis, fatigue and fever. Respiratory: Negative for cough, shortness of breath and wheezing. Cardiovascular: Negative for chest pain, palpitations and leg swelling. Neurological: Negative for dizziness, syncope and light-headedness. Objective: Carotid Ultrasounds (09/29/23) Interpretation Summary <50% stenosis in the right internal carotid artery. Mild and heterogeneous plaque (proximal) in the right internal carotid artery. <50% stenosis in the left internal carotid artery. Mild and heterogeneous plaque (proximal) in the left internal carotid artery. Normal antegrade flow involving the right vertebral artery. Normal antegrade flow involving the left vertebral artery. Transthoracic Echo (09/29/23) Interpretation Summary Left Ventricle: Left ventricle size is normal. Mildly increased wall thickness. Mass index 2D is 108.5 g/m2. Findings consistent with mild concentric hypertrophy. Normal left ventricular systolic function. EF by 2D Simpsons Biplane is 55%. Normal wall motion. Right Ventricle: Right ventricle size is normal. Normal systolic function. Aorta: Normal sized sinuses of Valsalva. Mildly dilated ascending aorta. Ao ascending diameter is 3.8 cm. No significant valvular abnormalities. Vitals: BP: 125/79, MAP (mmHg): 92, BP Method: Automatic Heart Rate: 58 Resp: 16 Temp: 36.7 C (98 F), Temp Source: Temporal BMI (Calculated): 28.98 BMP: Recent Labs 09/29/23 0703 10/01/23 0006 NA 137 136 K 4.6 4.0 CL 106 105 CO2 21* 21* BUN 21* 23* CREATININE 1.25 1.23 CALCIUM 9.2 8.6 CBC: Recent Labs 09/29/23 0703 10/01/23 0006 WBC 6.2 4.6 HGB 14.7 13.8 HCT 44.1 41.2 PLT 124* 109* MCV 91.1 91.2 RDW 14.1 14.2 INR: No results for input(s): INR in the last 72 hours. Physical Exam Vitals reviewed. Constitutional: General: He is not in acute distress. Appearance: He is not ill-appearing or diaphoretic. Cardiovascular: Rate and Rhythm: Normal rate and regular rhythm. Pulses: Normal pulses. Heart sounds: No murmur heard. Pulmonary: Effort: Pulmonary effort is normal. Breath sounds: No wheezing, rhonchi or rales. Abdominal: General: Bowel sounds are normal. There is no distension. Palpations: Abdomen is soft. Musculoskeletal: General: No swelling. Normal range of motion. Skin: General: Skin is warm and dry. Capillary Refill: Capillary refill takes less than 2 seconds. Neurological: General: No focal deficit present. Mental Status: He is alert and oriented to person, place, and time. Psychiatric: Mood and Affect: Mood normal. Behavior: Behavior normal. Thought Content: Thought content normal. Judgment: Judgment normal. Assessment: Multivessel CAD HTN HLD Tobacco abuse, quit 2 weeks ago Plan: Patient Status: Telemetry Patient discussed both surgery and PCI options yesterday with CT Surgeon and Paper Rewinder Operator. He is agreeable to proceed with CABG. Plan for surgery on Monday with Dr. Beverly. Reviewed completed testing. Continue current medications. -PRN nitroglycerin gtt if patient develops chest pain. Pre-op orders and education will be provided tomorrow (Monday). Encouraged patient to reach out through nursing if questions or concerns arise. GI prophy: PO protonix DVT prophy:TEDs, SCDs, and Lovenox SubQ * Stephen Urias MD - 10/01/2023 10:00 AM EST [facility] Cardiovascular Medicine Interventional Cardiology Progress Note Today's Date: 10/01/2023 10:00 AM PatientName: Jadon Reyes Date of Admission: 09/29/2023 6:59 AM Patient's Age: 67 y.o., 1955 Primary Care Physician: JUAN SOUSA MD Subjective: No acute issues overnight. Resting comfortably in bed and denies having any chest pain or shortnessof breath at rest. Allergies: Lisinopril Current Medications: aspirin, 81 mg, Oral, Daily atorvastatin, 80 mg, Oral, Daily carvedilol, 6.25 mg, Oral, BID WC enoxaparin, 40 mg, SubCUTAneous, Daily influenza, 0.5 mL, IntraMUSCular, Once latanoprost, 1 drop, Both Eyes, Nightly pantoprazole, 40 mg, Oral, q AM sodium chloride 0.9%, 5-40 mL, IntraVENous, q12h Infusions: nitroglycerin, 5-200 mcg/min Physical Exam: VITAL SIGNS: Vitals: 10/01/23 0400 10/01/23 0700 10/01/23 0800 10/01/23 0819 BP: 137/80 125/79 BP Location: Right arm Right arm Patient Position: Lying Sitting Pulse: 58 54 58 58 Resp: 16 Temp: 36.4 C (97.5 F) 36.7 C (98 F) TempSrc: Temporal Temporal SpO2: 99% 96% Weight: Height: Telemetry: Sinus rhythm Intake/Output Summary (Last 24 hours) at 10/01/2023 1000 Last data filed at 10/01/2023 0800 Gross per 24 hour Intake 330 ml Output -- Net 330 ml Wt Readings from Last 3 Encounters: 10/01/23 213 lb 11.2 oz (96.9 kg) General: Resting comfortably and does not appear to be in any acute distress HEENT: Atraumatic, normocephalic, moist mucous membrane. Pupils equal, round and reactive to light.External ears intact. Neck: Supple Lungs: Clear to auscultation bilaterally Heart: Normal S1-S2 Abdomen: Soft, nontender, nondistended Extremities: No edema Neuro: Alert and oriented. No gross focal deficits Psych: Appropriate mood Skin: Normal temperature. No severe rashes or lesions. Data: CBC: Recent Labs 09/29/23 0703 10/01/23 0006 WBC 6.2 4.6 HGB 14.7 13.8 HCT 44.1 41.2 MCV 91.1 91.2 PLT 124* 109* BMP: Recent Labs 09/29/23 0703 10/01/23 0006 NA 137 136 K 4.6 4.0 CL 106 105 CO2 21* 21* BUN 21* 23* CREATININE 1.25 1.23 EGFR 62.7 63.9 Biomarkers: Recent Labs 09/29/23 0703 09/29/23 1253 09/29/232022 TROPONINI <0.012 <0.012 <0.012 PRO-BNP: Recent Labs 09/29/23 07 BNP 482* ABGs: No results found for: PHART, PO2ART, [id number] PT/INR: No results for input(s): INR in the last 72 hours. APTT: Recent Labs 09/29/23 0705 APTT 35.9* TSH: Lab Results Component Value Date TSH 2.295 09/29/2023 FASTING LIPID PANEL: No results found for: CHOL No results found for: HDL No results found for: LDLCALC No results found for: TRIG No results found for: CHOLHDL LIVER PROFILE: Results from last 7 days Lab Units 09/29/23 0703 AST U/L 37 ALT U/L 40 Hemoglobin A1C: Lab Results Component Value Date HGBA1C 5.4 09/29/2023 Iron: No results found for: IRON, TIBC, FERRITIN CXR: Vascular US lower extremity vein mapping for bypass bilateral Final Result Vascular US carotid artery duplex bilateral Final Result XR chest 1 view Final Result Lungs clear with no acute cardiopulmonary disease process. Report Dictated on Electronically Signed By: Jose Lawrence MD Electronically Signed Date/Time: 09/29/2023 9:24 AM EDT Last EKG 09/29/23 ECG 12-LEAD (Preliminary) This result has not been signed. Information might be incomplete. Impression Sinus bradycardia Inferior infarct, old Last Echo 09/29/23 TRANSTHORACIC ECHOCARDIOGRAM (TTE) COMPLETE (CONTRAST/BUBBLE/3D PRN) 09/29/2023 2:55 PM (Final) Interpretation Summary Left Ventricle: Left ventricle size is normal. Mildly increased wall thickness. Mass index 2D is 108.5 g/m2. Findings consistent with mild concentric hypertrophy. Normal left ventricular systolic function. EF by 2D Simpsons Biplane is 55%. Normal wall motion. Right Ventricle: Right ventricle size is normal. Normal systolic function. Aorta: Normal sized sinuses of Valsalva. Mildly dilated ascending aorta. Ao ascending diameter is 3.8 cm. No significant valvular abnormalities. Signed by: Remington Rodriguez MD on 09/29/2023 2:55 PM Last Cath No results found for this or any previous visit. Last Stress Test No results found for this or any previous visit. Last EP study No results found for this or any previous visit. EF BP Date Value Ref Range Status 09/29/2023 55 55 - 100 % Final Problem List: Patient Active Problem List Diagnosis CAD in [place] artery Assessment & Plan: Multivessel CAD Hypertension Hyperlipidemia Tobacco abuse Recommendations After discussion with family, CT surgery patient has decided to proceed with CABG. CABG planned forTuesday with Dr. Beverly. Continue aspirin 81 mg once a day. Continue atorvastatin 80 mg once a day. Continue Coreg 6.25 mg twice daily. Patient was seen, examined and discussed with Dr. Shelton who is in agreement with the plan. Stephen Urias MD Interventional Youth Associate [facility] Associated attestation - Ap Shelton MD - 10/01/2023 1:09 PM EST I, Dr. Ap Shelton, saw and evaluated the patient 10/01/2023. I personally obtained the galarza and critical portions of the history and physical exam. I reviewed the chart and discussed the patient with the resident/fellow. I agree with the resident's and/or fellow's medical decision making and haveedited the note to reflect my findings and my assessment and plan. Doing well, ambulating in the halls, no chest pain. Plan CABG Monday. * Stephen Urias MD - 09/30/2023 10:04 AM EDT [facility] Cardiovascular Medicine Interventional Cardiology Progress Note Today's Date: 09/30/2023 10:04 AM PatientName: Jadon Reyes Date of Admission: 09/29/2023 6:59 AM Patient's Age: 67 y.o., 1955 Primary Care Physician: JUAN SOUSA MD Subjective: No acute issues overnight. Resting comfortably in bed and denies having any chest pain or shortnessof breath at rest. TTE with reported LVEF 55%. Allergies: Lisinopril Current Medications: aspirin, 81 mg, Oral, Daily atorvastatin, 80 mg, Oral, Daily carvedilol, 6.25 mg, Oral, BID WC enoxaparin, 40 mg, SubCUTAneous, Daily influenza, 0.5 mL, IntraMUSCular, Once latanoprost, 1 drop, Both Eyes, Nightly pantoprazole, 40 mg, Oral, q AM sodium chloride 0.9%, 5-40 mL, IntraVENous, q12h Infusions: nitroglycerin, 5-200 mcg/min Physical Exam: VITAL SIGNS: Vitals: 09/30/23 0500 09/30/23 0710 09/30/23 0800 09/30/23 0810 BP: 131/79 123/83 119/68 BP Location: Patient Position: Pulse: 59 67 65 63 Resp: 16 Temp: 36.9 C (98.4 F) TempSrc: Temporal SpO2: 94% 97% Weight: Height: Telemetry: Sinus rhythm Intake/Output Summary (Last 24 hours) at 09/30/2023 1004 Last data filed at 09/29/2023 1838 Gross per 24 hour Intake 500 ml Output -- Net 500 ml Wt Readings from Last 3 Encounters: 09/29/23 217 lb (98.4 kg) General: Resting comfortably and does not appear to be in any acute distress HEENT: Atraumatic, normocephalic, moist mucous membrane. Pupils equal, round and reactive to light.External ears intact. Neck: Supple Lungs: Clear to auscultation bilaterally Heart: Normal S1-S2 Abdomen: Soft, nontender, nondistended Extremities: No edema Neuro: Alert and oriented. No gross focal deficits Psych: Appropriate mood Skin: Normal temperature. No severe rashes or lesions. Data: CBC: Recent Labs 09/29/23 07 WBC 6.2 HGB 14.7 HCT 44.1 MCV 91.1 PLT 124* BMP: Recent Labs 09/29/23 07 NA 137 K 4.6 CL 106 CO2 21* BUN 21* CREATININE 1.25 EGFR 62.7 Biomarkers: Recent Labs 09/29/23 0703 09/29/23 1253 09/29/232022 TROPONINI <0.012 <0.012 <0.012 PRO-BNP: Recent Labs 09/29/23 07 BNP 482* ABGs: No results found for: PHART, PO2ART, SJR2QAE PT/INR: No results for input(s): INR in the last 72 hours. APTT: Recent Labs 09/29/23 07 APTT 35.9* TSH: Lab Results Component Value Date TSH 2.295 09/29/2023 FASTING LIPID PANEL: No results found for: CHOL No results found for: HDL No results found for: LDLCALC No results found for: TRIG No results found for: CHOLHDL LIVER PROFILE: Results from last 7 days Lab Units 09/29/23 0703 AST U/L 37 ALT U/L 40 Hemoglobin A1C: Lab Results Component Value Date HGBA1C 5.4 09/29/2023 Iron: No results found for: IRON, TIBC, FERRITIN CXR: Vascular US lower extremity vein mapping for bypass bilateral Final Result Vascular US carotid artery duplex bilateral Final Result XR chest 1 view Final Result Lungs clear with no acute cardiopulmonary disease process. Report Dictated on Electronically Signed By: Jose Lawrence MD Electronically Signed Date/Time: 09/29/2023 9:24 AM EDT Last EKG 09/29/23 ECG 12-LEAD (Preliminary) This result has not been signed. Information might be incomplete. Impression Sinus bradycardia Inferior infarct, old Last Echo 09/29/23 TRANSTHORACIC ECHOCARDIOGRAM (TTE) COMPLETE (CONTRAST/BUBBLE/3D PRN) 09/29/2023 2:55 PM (Final) Interpretation Summary Left Ventricle: Left ventricle size is normal. Mildly increased wall thickness. Mass index 2D is 108.5 g/m2. Findings consistent with mild concentric hypertrophy. Normal left ventricular systolic function. EF by 2D Simpsons Biplane is 55%. Normal wall motion. Right Ventricle: Right ventricle size is normal. Normal systolic function. Aorta: Normal sized sinuses of Valsalva. Mildly dilated ascending aorta. Ao ascending diameter is 3.8 cm. No significant valvular abnormalities. Signed by: Remington Rodriguez MD on 09/29/2023 2:55 PM Last Cath No results found for this or any previous visit. Last Stress Test No results found for this or any previous visit. Last EP study No results found for this or any previous visit. EF BP Date Value Ref Range Status 09/29/2023 55 55 - 100 % Final Problem List: Patient Active Problem List Diagnosis CAD in [place] artery Assessment & Plan: Multivessel CAD Hypertension Hyperlipidemia Tobacco abuse Recommendations After discussion with family, CT surgery patient has decided to proceed with CABG. Continue aspirin 81 mg once a day. Continue atorvastatin 80 mg once a day. Continue Coreg 6.25 mg twice daily. Patient was seen, examined and discussed with Dr. Shelton who is in agreement with the plan. Stephen Urias MD Interventional Youth Associate [facility] Associated attestation - Ap Shelton MD - 09/30/2023 1:03 PM EDT I, Dr. Ap Shelton, saw and evaluated the patient 09/30/2023. I personally obtained the galarza and critical portions of the history and physical exam. I reviewed the chart and discussed the patient with the resident/fellow. I agree with the resident's and/or fellow's medical decision making and haveedited the note to reflect my findings and my assessment and plan. No major events, denies chest pain. Opting for CABG over PCI due to prospect of durability. EF preserved. Ok to discharge home and readmit for CABG if patient prefers, but plan likely CABG early thisweek. * Maxim Irwin, ARCHIE - STAKEHOLDER MANAGER - 09/30/2023 6:16 AM EDT Images from the original note were not included. Cardiothoracic Surgery/[facility] Progress Note PATIENT NAME: Jadon Reyes DATE: 09/30/23 HPI: Mr. Jadon Reyes is a 67 year old male patient with a known PMHx that includes HTN, HLD, and smoking. He presented to [facility] ED on 09/27/23 after he was called with results of a stress test he underwent. The stress test was completed earlier in the day on 09/27/23 and was positive for reversibleischemia. On admission in ED, his EKG showed T wave inversions in lead III and aVF, troponin negative. He was started on aspirin, heparin and Cardiology consulted. He had a cardiac catheterization on09/28/23 which revealed multivessel CAD. He was transferred to [facility] for Cardiothoracic Surgery to evaluate for surgical revascularization. Interval History: 09/30/23. Afebrile, NSR on tele, BP stable, on RA. Patient asymptomatic, sitting in chair in room. No acute events overnight. No issues. Patient agreeable with surgery, will plan for Monday. Review of Systems Constitutional: Negative for chills, diaphoresis, fatigue and fever. Respiratory: Negative for cough, shortness of breath and wheezing. Cardiovascular: Negative for chest pain, palpitations and leg swelling. Neurological: Negative for dizziness, syncope and light-headedness. Objective: Carotid Ultrasounds (09/29/23) Interpretation Summary <50% stenosis in the right internal carotid artery. Mild and heterogeneous plaque (proximal) in the right internal carotid artery. <50% stenosis in the left internal carotid artery. Mild and heterogeneous plaque (proximal) in the left internal carotid artery. Normal antegrade flow involving the right vertebral artery. Normal antegrade flow involving the left vertebral artery. Transthoracic Echo (09/29/23) Interpretation Summary Left Ventricle: Left ventricle size is normal. Mildly increased wall thickness. Mass index 2D is 108.5 g/m2. Findings consistent with mild concentric hypertrophy. Normal left ventricular systolic function. EF by 2D Simpsons Biplane is 55%. Normal wall motion. Right Ventricle: Right ventricle size is normal. Normal systolic function. Aorta: Normal sized sinuses of Valsalva. Mildly dilated ascending aorta. Ao ascending diameter is 3.8 cm. No significant valvular abnormalities. Vitals: BP: 124/76, MAP (mmHg): 90, BP Method: Automatic Heart Rate: 57 Resp: 16 Temp: (!) 35.8 C (96.5 F), Temp Source: Temporal BMI (Calculated): 29.42 BMP: Recent Labs 09/29/23 0703 NA 137 K 4.6 CL 106 CO2 21* BUN 21* CREATININE 1.25 CALCIUM 9.2 CBC: Recent Labs 09/29/23 0703 WBC 6.2 HGB 14.7 HCT 44.1 PLT 124* MCV 91.1 RDW 14.1 INR: No results for input(s): INR in the last 72 hours. Physical Exam Vitals reviewed. Constitutional: General: He is not in acute distress. Appearance: He is not ill-appearing or diaphoretic. Cardiovascular: Rate and Rhythm: Normal rate and regular rhythm. Pulses: Normal pulses. Heart sounds: No murmur heard. Pulmonary: Effort: Pulmonary effort is normal. Breath sounds: No wheezing, rhonchi or rales. Abdominal: General: Bowel sounds are normal. There is no distension. Palpations: Abdomen is soft. Musculoskeletal: General: No swelling. Normal range of motion. Skin: General: Skin is warm and dry. Capillary Refill: Capillary refill takes less than 2 seconds. Neurological: General: No focal deficit present. Mental Status: He is alert and oriented to person, place, and time. Psychiatric: Mood and Affect: Mood normal. Behavior: Behavior normal. Thought Content: Thought content normal. Judgment: Judgment normal. Assessment: Multivessel CAD HTN HLD Tobacco abuse, quit 2 weeks ago Plan: Patient Status: Telemetry Patient discussed both surgery and PCI options yesterday with CT Surgeon and Paper Rewinder Operator. Patient leaning towards CABG. He is agreeable to proceed. Plan for surgery on Monday with Dr. Beverly. Reviewed completed testing. Continue current medications. -PRN nitroglycerin gtt if patient develops chest pain. Pre-op education will be provided. Pre-op orders to be placed on Monday. GI prophy: PO protonix DVT prophy:TEDs, SCDs, and Lovenox SubQ * ARCHIE Ring CNP - 09/29/2023 4:[address] Shelton and discussion with patient will plan for CABG definitively, Will plan to keep him in the hospital with CABG on Monday documented in this [facility]11-11-2023 NoteDischarge Summary: Cardiothoracic Surgery Jadon Reyes, 67 y.o., 1955 ADMIT DATE: 09/29/2023 DISCHARGE DATE: 10/07/2023 DISCHARGING SURGEON: Kit Beverly MD, Office Number: [phone] PRIMARY CARE PHYSICIAN: JUAN SOUSA MD TREATMENT TEAM: CTS: Dr. Mcgraw Cardiology: Dr. Shelton while inpt VISIT STATUS: Admission CODE STATUS: Full Code SURGERY: 10/03/23: CABG x3 (SCHWAB-LAD, SVG-PDA, SVG-PL), [facility]SE: 67 year old male patient with a known PMHx that includes HTN, HLD, and smoking. He presented to [facility] ED on 09/27/23 after he was called with results of a stress test he underwent. The stress test was completed earlier in the day on 09/27/23 and was positive for reversible ischemia. On admission in ED, his EKG showed T wave inversions in lead III and aVF, troponin negative. He was started on aspirin, heparin and Cardiology consulted. He had a cardiac catheterization on 09/28/23 which revealed multivessel CAD. He was transferred to [facility] for CABG. Was taken for CABG x3 with Dr. Beverly on 10/03/23. Postoperative course was uncomplicated. He will d/c with close follow up. BRIEF PE ON DAY OF DISCHARGE: Physical Exam Cardiovascular: Rate and Rhythm: Normal rate and regular rhythm. Heart sounds: Normal heart sounds. No murmur heard. No friction rub. Pulmonary: Effort: Pulmonary effort is normal. Breath sounds: Decreased breath sounds present. No wheezing or rhonchi. Musculoskeletal: Right lower leg: No edema. Left lower leg: No edema. Skin: General: Skin is warm and dry. Capillary Refill: Capillary refill takes less than 2 seconds. Findings: Bruising and ecchymosis present. Comments: Surgical Incisions: well approximate; clean dry with no drainage noted. Surrounding skin no redness, warmth, or signs of infection noted. Neurological: Mental Status: He is alert. Psychiatric: Behavior: Behavior is cooperative. DIAGNOSTICS: BP 124/75 Pulse 78 Temp 36.4 ?C (97.5 ?F) (Temporal) Resp 16 Ht 6' (1.829 m) Wt 214 lb 8.1 oz (97.3 kg) SpO2 98% BMI 29.09 kg/m? Recent Labs 10/05/23 0023 10/06/23 0229 10/07/23 0338 CREATININE 1.49* 1.28* 1.32* HGB 9.5* 9.3* 9.8* PLT 96* 106* 141 WBC 6.8 6.4 4.9 NA 137 138 140 K 4.5 4.3 4.4 DISCHARGE DIAGNOSES: Multivessel CAD s/p CABG HTN HLD Tobacco abuse, quit 2 weeks ago Post operative Pulm Management: Normal Post-operative Course Post-operative Atrial Fibrillation: []Yes [x] No Acute blood loss anemia/consumptive coagulopathy DISCHARGE MEDICATIONS: Medication List START taking these medications acetaminophen 500 MG tablet Commonly known as: Tylenol Take 2 tablets (1,000 mg) by mouth in the morning and 2 tablets (1,000 mg) at noon and 2 tablets (1,000 mg) before bedtime. Do all this for 10 days. atorvastatin 80 MG tablet Commonly known as: Lipitor Take 1 tablet (80 mg) by mouth daily. Start taking on: October 08, 2023 methocarbamol 500 MG tablet Commonly known as: Robaxin Take 1 tablet (500 mg) by mouth every 8 hours as needed for muscle spasms for up to 5 days. metoprolol tartrate 25 MG tablet Commonly known as: Lopressor Take 1 tablet (25 mg) by mouth 2 times daily. oxyCODONE 5 MG immediate release tablet Commonly known as: Roxicodone Take 1 tablet (5 mg) by mouth every 6 hours as needed for severe pain (7-10) for up to 7 days. CONTINUE taking these medications aspirin 81 MG EC tablet latanoprost 0.005 % ophthalmic solution Commonly known as: Xalatan STOP taking these medications losartan-hydroCHLOROthiazide 100-12.5 MG tablet Commonly known as: Hyzaar Where to Get Your Medications These medications were sent to [facility] [place] - [address] [place] [address] atorvastatin 80 MG tablet methocarbamol 500 MG tablet metoprolol tartrate 25 MG tablet oxyCODONE 5 MG immediate release tablet You can get these medications from any pharmacy You don't need a prescription for these medications acetaminophen 500 MG tablet DIET: Adult diet Regular BMI CLASSIFICATION:Overweight (BMI 25.0-29.9) ACTIVITY: activity as tolerated, strict post-sternotomy/post-thoracotomy sternal precautions as outlined in the home going instructions, and no driving or operating heavy machinery until released by provider STRICT POST-STERNOTOMY/POST-THORACOTOMY PRECAUTIONS OUTLINED IN THE HOME GOING INSTRUCTIONS FOLLOW UP: Office will call to schedule CORE CARDIAC MEDICATIONS PRESCRIBED AT DISCHARGE: Beta-edinson prescribed at discharge: [x] Yes [] No - reason why: ACEi or ARB prescribed at discharge: [] Yes [x] No - reason why: Statin prescribed at discharge: [x] Yes [] No - reason why: Anti-platelet agent prescribed at discharge: [x] Yes [] No - reason why: Post-operative Atrial Fibrillation: []Yes [x] No OAC: [] Yes [x] No Initial Post-op RBC transfusion date/reason: Plts in (more content not included)...[facility]11-11-2023 Hospital Discharge instructions* Discharge Instructions* Jacquelin Warren, HEALTH PROMOTER - STAKEHOLDER MANAGER - 10/07/2023 11:43 AM EST Images from the original note were not included. [facility]: Cardiothoracic Surgery [address] [place] [address]. [facility] [address] [facility] #[phone] Notify us if the following occur - Increased tenderness, redness, or swelling of your incisions. - Any drainage from the chest incision (clear or pink drainage from the leg incision or chest tube site is common). - Angina symptoms like those you had before surgery - Sharp pain in chest, neck or shoulder that is worse when taking a deep breath - Persistent fever greater than 100 degrees F or 38 degrees C - Flu-like symptoms-chills, aches, fever, increased fatigue - Heart rate faster than 150 beats/minute with shortness of breath or new irregular heart rate. - Any unusual bleeding - Shortness of breath not relieved by rest - Weight gain of three pounds in one day or five pounds over one week Activity Instructions - Sternal Precautions for 6 weeks - Do not lift, push, or pull anything heavier than 10 pounds for 6 weeks (a gallon of milk weighs 8pounds). - Do not drive until you have been given permission by your surgeon/provider and until you are off narcotic/opioid pain medication - It is ok to sleep on your side if you prop pillows to support your back. Do not sleep on your stomach. - Walk at least 4 times a day, start with 5 minute intervals, increase minutes walked each day. Do not walk on a treadmill - Balance rest and activity during your recovery - Use the stairs, but go slowly, Use the handrail for balance but do not pull yourself up with yourarms. - Shower daily. Do not take your heart medication right before you shower. You could become lightheaded from your blood pressure and heart medication. Always have someone nearby to assist you. - Do not take a tub bath or use a hot tub until all incision are completely healed (no scab). - Put joe hose on in AM and remove at bedtime. Elevate your feet above level of heart when you are sitting. - Cough and deep breathe and use incentive spirometer every hour (10x/hour while awake for two weeks). Other Instructions - Weigh yourself daily at the same time (after you urinate but before breakfast) - Keep a record of your daily weight, and bring to your first post op office visit - Take all medications as prescribed. Bring all your medication bottles to any follow up office visit Incision Care - Wash your sternal incision with anti-bacterial soap and warm water. Pat dry, and leave open to air. Do not use any lotions, or powders, or ointments. * Discharge Instr - Other Orders* Marli Xiong RN - 10/06/2023 3:26 PM EST Discharging to Facility/ Agency Name: [facility] Address: [address] [place] [address] * Discharge Instr - NATHAN* Serina Rivers LPN - 10/07/2023 2:09 PM EST Continuity of Care Form Patient Name: Jadon Reyes : 1955 Admit date: 09/29/2023 Discharge date: Code Status Order: Full Code Advance Directives: N Admitting Physician: Kit Beverly MD PCP: JUAN SOUSA MD Discharging Nurse: Discharging Hospital Unit/Room#: T1-110/T1-110 A Discharging Unit Phone Number: Emergency Contact: Extended Emergency Contact Information Primary Emergency Contact: Monica Reyes Address: [address] [place] Relation: Spouse Automatic Fancy Machine Operator needed? No Past Surgical History: History reviewed. No pertinent surgical history. Immunization History: Immunization History Administered Date(s) Administered Covid-19, Pfizer Bivalent Booster, (Age 12y+), Im, 30 Mcg/0e 10/28/2022 Pfizer SARS-CoV-2 Vaccination 01/28/2021, 02/18/2021, 08/31/2021 Active Problems: Medical Problems Problem List * (Principal) CAD in [place] artery Isolation/Infection: No active isolations No active infections Nurse Assessment: Last Vital Signs: BP 124/75 Pulse 78 Temp 36.4 C (97.5 F) (Temporal) Resp 16 Ht 1.829 m (6') Wt 97.3 kg (214 lb 8.1 oz) SpO2 98% BMI 29.09 kg/m Last documented pain score (0-10 scale): Last Weight: Wt Readings from Last 1 Encounters: 10/07/23 97.3 kg (214 lb 8.1 oz) Mental Status: {NATHAN Patient Mental Status:32478} IV Access: {NATHAN IV Access:66247} Nursing Mobility/ADLs: Walking {JIM ADL:::Independent} Transfer {JIM ADL:::Independent} Bathing {JIM ADL:::Independent} Dressing {JIM ADL:::Independent} Toileting {JIM ADL:::Independent} Feeding {JIM ADL:::Independent} Crystal Attacher {JIM ADL:::Independent} Med Delivery {yes/no:28617} Wound Care Documentation and Therapy: Wound/Incision 10/03/23 Incision Sternum (Active) Site Assessment Clean;Dry;Intact 10/07/23 1200 Judith-Wound Assessment Clean;Dry;Intact 10/07/23 0800 Closure Glue 10/07/23 0800 Odor None 10/07/23 1200 Drainage Amount None 10/07/23 1200 Treatments Cleansed 10/06/23 1610 Primary Dressing Liquid Adhesive (Dermabond);Open to air 10/07/23 1200 Dressing Status Clean, dry & intact 10/07/23 1200 State of Healing Closed wound edges 10/07/23 1200 Number of days: 4 Wound/Incision 10/03/23 Incision Calf Anterior;Left (Active) Site Assessment Clean;Dry;Intact 10/07/23 1200 Judith-Wound Assessment Clean;Dry;Intact 10/07/23 0800 Closure Glue 10/07/23 0800 Odor None 10/07/23 1200 Drainage Amount None 10/07/23 1200 Treatments Cleansed 10/06/23 1610 Primary Dressing Liquid Adhesive (Dermabond);Open to air 10/07/23 1200 Dressing Status Clean, dry & intact 10/07/23 1200 State of Healing Closed wound edges 10/07/23 1200 Number of days: 4 Elimination: Continence: Bowel: {yes/no:58671} Bladder: {yes/no:14410} Urinary Catheter: {NATHAN Urinary Catheter:15694} Colostomy/Ileostomy/Ileal Conduit: {YES / NO:} Date of Last BM: No intake or output data in the 24 hours ending 10/07/23 1408 I/O last 3 completed shifts: In: 400 (4.1 mL/kg) [P.O.:400] Out: 700 (7.2 mL/kg) [Urine:700 (0.2 mL/kg/hr)] Weight: 97.3 kg Safety Concerns: {NATHAN Safety Concerns:36786} Impairments/Disabilities: {NATHAN Impairments/Disabilities:36693} Nutrition Therapy: Current Nutrition Therapy: {NATHAN Diet List:07437} Routes of Feeding: {routes of feedin} Liquids: {liquid consistency:53512} Daily Fluid Restriction: {daily fluid restriction:74800} Last Modified Barium Swallow with Video (Video Swallowing Test): {done not done:70292} Treatments at the Time of Hospital Discharge: Respiratory Treatments: Oxygen Therapy: {Therapy; copd oxygen:66470} Ventilator: {NATHAN Ventilator:56966} Rehab Therapies: {GEN THERAPY DISCIPLINE SCAL:2719593} Weight Bearing Status/Restrictions: {POD WEIGHT BEARIN} Other Medical Equipment (for information only, NOT a DME order): {Assistive Devices DME:96466} Other Treatments: Patient's personal belongings (please select all that are sent with patient): {NATHAN Patient Belongings:15471} RN SIGNATURE: {E-signature:97840} CASE MANAGEMENT/SOCIAL WORK SECTION Inpatient Status Date: Readmission Risk Assessment Score: @READMISSIONRISKDETAILS@ Discharging to Facility/ Agency Name: [facility] Address: [address] [place] [address] Dialysis Facility (if applicable) Name: Address: Dialysis Schedule: Phone: Fax: Telecommunications Field Engineer/Senior Mobile Solutions Architect signature: {E-signature:59961} PHYSICIAN SECTION Prognosis: {Rehab Prognosis:50787} Condition at Discharge: {Patient Condition:63717} Rehab Potential (if transferring to Rehab): {Rehab Prognosis:10992} Recommended Labs or Other Treatments After Discharge: Physician Certification: I certify the above information and transfer of Jadon Reyes is necessary for the continuing treatment of the diagnosis listed and that he requires {NATHAN Level of Care:01402} for {greater less than:76177} 30 days. Update Admission H&P: {NATHAN Changes in H&P:19066} PHYSICIAN SIGNATURE: {E-signature:[id number]} documented in this [place] 85706-10-2023 NoteStart PACC Note Home Health Referral Educated patient on Home Care and services available. Patient offered choice of available HHC and agreeable to RN PT (assess for OT needs) services with [facility]. Care Types: [facility] SCRIP Program Isolation Precautions: No active isolations Social Determinates of Health: Tobacco Use: Medium Risk (10/03/2023) Patient History Smoking Tobacco Use: Former Smokeless Tobacco Use: Former Passive Exposure: Not on file Social History Substance and Sexual Activity Alcohol Use Yes Comment: Occasional Social History Substance and Sexual Activity Drug Use Never Does the patient have any financial resource strain? No Does the patient have any food insecurities? No Does the patient have any housing instabilities? No If any of the above is noted as yes - consider a PLUNKET NURSE evaluation once the patient returns home. START PATIENT REGISTRATION INFORMATION Order Information Order Signing Physician: Kit Beverly MD Service Ordered RN ?: Yes Service Ordered PT ?: Yes Service Ordered OT ?: No Service Ordered ST ?: No Service Ordered PLUNKET NURSE?:No Service Ordered STAMPING PRESS OPERATOR?: No Following Physician: Dr Kit Beverly Following Physician Overseeing Physician: Dr Kit Beverly (Required for Residents only) Agreeable to Follow? Yes Date/Time of Call 10/06/23 3:26 PM Care Coordination Same Day SOC?: No Primary Care Physician: JUAN SOUSA MD Primary Care Physician Primary Care Physician Address: [address] [place] [phone] Visit Instructions: N/A Service Discharge Location Type: Home with Home Health Care Service Facility Name: N/A Service Floor Facility: N/A Service Room No: N/A Demographics Patient Last Name: Eric Patient First Name: Jadon Language/Communication Barrier: n/a Service Address: [address] [facility] Service City: [facility] ST: [place] Service ZIP: [address] Service (home) Other phone numbers: Telephone Information: Emergency Contact: Extended Emergency Contact Information Primary Emergency Contact: EricMonica Address: [address] [place] [address] [facility] Mobile Relation: Spouse Automatic Fancy Machine Operator needed? No Admission Information Admit Date: 09/29/2023 Patient status at discharge: Inpatient Admitting Diagnosis CAD in [place] artery [I25.10] Caregiver Information Caregiver First Name: n/a Caregiver Last Name: n/a Caregiver Relationship to Patient n/a Caregiver Phone Number: n/a Caregiver Notes: N/A [employer] List No END PATIENT REGISTRATION INFORMATION Pt Home Health goal rehab at home COVID Status 1. Do you have any upper respiratory symptoms (cough, SOB, Fever)? No 2. Have you been exposed to anyone with COVID-19 Virus? No Answer only if pending or positive for COVID-19? 1. Agreeable to wear PPE at each visit? N/a 2. Is the hospital supplying them with PPE upon Discharge? N/a Start PACC Summary General Report/ Additional Comments Wound care/dressing changes: -Surgical incisions leave open to air, cleanse daily with mild soap & warm water, pat dry, no lotion or powders on incision. -Surgical tape/dsg removal 10 days from surgery date Respiratory Care: -Cough and Deep Breath; Use incentive spirometry 10 times every hour while awake for 2 weeks. Additional Orders: -Sternal precautions (no lifting, pushing, pulling >10 lbs) for 6 weeks-use heart pillow -Vitals per home health protocol-call for fever and chills -Daily weights- call for weight gain: 2-3lbs in one day; 5lbs in 3 days. -Wear TEDs during day and off at night. Lab Work: -If Diabetic: blood glucose testing as directed by PCP/Assistant Hall Director -For recent heart surgery if patient discharged on Coumadin verify need for INR draw on visit. Activity/Weight Bearing: -Up with assistance: up in chair for all meals, ambulate 3-4 times a day -Stretching exercises per PT discharge instructions Discharge Date: pending Referral Source-PACC: (Hospital/Unit): [facility] / T1-110/T1-110 A End PACC [facility]11-10-2023 [facility] [place] [facility] [place]Electrophysiology Progress Note HPI / Interval History: Mr. Reyes is s/p CABG x3 (FHDK-HHS-TGK, SVG-PDA, SVG-PL) on 10/03/[address] Beverly. He has past medical history of HTN, HLD, tobacco use. He was originally transferred from [place] with abnormal stress test. EF 55% He states he is feeling better. Chest tube removed. He walked around unit 2 times and denied chest pain. He had some mild dyspnea. Denies palpitations, dizziness, syncope, bleeding. On room air. Voiding well. Creatinine improving. Assessment/Plan Multivessel CAD s/p CABG x3 (BJGU-ODT-HOD, SVG-PDA, SVG-PL) on 10/03/[address] Beverly - Stable. Continue aspirin, atorvastatin, metoprolol, PPI. Pain control per CTS, advance activity. Patient is diuresing. Will need cardiac rehab as outpatient. Decrease aspirin to 81 mg as outpatient. HTN -Controlled. Continue metoprolol. HLD - Continue atorvastatin 80 mg. Tobacco use - Ongoing cessation advised. Will discuss with Dr. Shelton. Follow up with Dr. Nicolas in [place]. Medications: acetaminophen, 1,000 mg, Oral, q8h aspirin, 324 mg, Oral, Daily atorvastatin, 80 mg, Oral, Daily chlorhexidine, 15 mL, Mouth/Throat, BID heparin, 5,000 Units, SubCUTAneous, BID latanoprost, 1 drop, Both Eyes, Nightly Lidocaine, 1 patch, Topical, Daily methocarbamol, 500 mg, Oral, 3 times per day metoprolol tartrate, 25 mg, Oral, BID mupirocin, , Nasal, BID pantoprazole, 40 mg, Oral, qAM AC polyethylene glycol (PEG) 3350, 17 g, Oral, Daily senna-docusate sodium, 2 tablet, Oral, Nightly sodium chloride 0.9%, 10 mL, IntraVENous, 2 times per day Infusion Medications: lactated ringers, 250 mL Physical Examination: Vitals: 10/06/23 0700 10/06/23 0800 10/06/23 0804 10/06/23 0900 BP: 117/62 BP Location: Left arm Patient Position: Sitting Pulse: 85 82 83 87 Resp: 18 Temp: 36.3 ?C (97.3 ?F) TempSrc: Temporal SpO2: 92% 97% 96% 96% Weight: Height: Intake/Output Summary (Last 24 hours) at 10/06/2023 0959 Last data filed at 10/06/2023 0300 Gross per 24 hour Intake -- Output 810 ml Net -810 ml Wt Readings from Last 3 Encounters: 10/06/23 216 lb 7.9 oz (98.2 kg) Physical Exam Vitals reviewed. Constitutional: General: He is not in acute distress. Appearance: Normal appearance. He is not diaphoretic. HENT: Head: Normocephalic. Mouth/Throat: Pharynx: No oropharyngeal exudate. Eyes: General: Right eye: No discharge. Left eye: No discharge. Extraocular Movements: Extraocular movements intact. Cardiovascular: Rate and Rhythm: Normal rate and regular rhythm. Pulses: Normal pulses. Heart sounds: Normal heart sounds. No murmur heard. No gallop. Pulmonary: Effort: Pulmonary effort is normal. No respiratory distress. Breath sounds: Examination of the right-lower field reveals decreased breath sounds. Examination of the left-lower field reveals decreased breath sounds. Decreased breath sounds present. Chest: Comments: Mid-sternal chest incision without redness or drainage. Abdominal: General: Bowel sounds are decreased. There is no distension. Palpations: Abdomen is soft. Tenderness: There is no abdominal tenderness. Musculoskeletal: General: Normal range of motion. Cervical back: Normal range of motion and neck supple. Right lower leg: No edema. Left lower leg: No edema. Skin: General: Skin is warm and dry. Capillary Refill: Capillary refill takes less than 2 seconds. Neurological: General: No focal deficit present. Mental Status: He is alert and oriented to person, place, and time. Cranial Nerves: No cranial nerve deficit. Psychiatric: Mood and Affect: Mood normal. Laboratory Tests: Recent Labs 10/03/23 1313 10/03/23 1731 10/04/23 0005 10/05/23 0023 10/06/23 0229 NA 142 142 139 137 138 K 4.4 4.9 4.9 4.5 4.3 CL 110* 108* 108* 104 105 CO2 23 23 21* 25 26 BUN 20 20 22* 22* 24* CREATININE 1.27* 1.41* 1.46* 1.49* 1.28* Recent Labs 10/03/23 1127 10/03/23 1128 10/03/23 1313 10/03/23 1731 10/04/23 0005 10/05/23 0023 10/06/23 0229 WBC 7.2 -- 9.6 -- 7.0 6.8 6.4 HGB 9.5* < > 11.5* 10.9 10.2* 9.5* 9.3* HCT 28.3* -- 34.1* -- 29.5* 27.9* 27.6* MCV 91.2 -- 91.4 -- 90.4 91.8 91.8 PLT 104* -- 112* -- 114* 96* 106* < > = values in this interval not displayed. No results for input(s): CKTOTAL, CKMB, CKMBINDEX, TROPONINI in the last 72 hours. No results for input(s): BNP in the last 72 hours. No results for input(s): TRIG, HDL, LDLCALC, CHOL in the last 72 hours. No results found for: LDLCHOLESTER Lab Results Component Value Date TSH 2.295 09/29/2023 EF BP Date Value Ref Range Status 09/29/2023 55 55 - 100 % Final 09/29/23 TRANSESOPHAGEAL ECHOCARDIOGRAM (CONTRAST/3D PRN) 10/03/2023 3:26 PM (Final) Interpretation Summary Left Ventricle: Left ventricle size is normal. Normal left ventricular systolic function. (more content not included)...[facility] 10-06-2023 NoteCare Management Progress Note Patient remains in CTV ICU s/p CABG x 3 POD # 3. VSS, on RA, in NSR on tele, + BM, endocrine signed off, and PT recommending IPR and continue to assess. Patient from home with , ROBERT following for home care-discharge plan. Discharge Milestones and Delays Expected Date/Time: 10/08/[address] discharge order Complete med reconciliation Case mgmt discharge readiness Clinical Stability Diagnsotic Workup Expected Discharge History Expected Date/Time Set By Reviewed At 10/08/2023 Toshia Chery RN 10/06/2023 8:50 AM 10/08/2023 Toshia Chery RN 10/05/2023 8:51 AM 10/08/2023 Toshia Chery, KLAUDIA 10/04/2023 8:07 AM 10/08/2023 Toshia Chery, KLAUDIA 10/02/2023 10:01 AM 10/05/2023 Jacquelin Warren, ARCHIE - FRANCO 09/28/2023 3:56 PM Length of Stay (Days): 7 LOS: 5.8[facility]11-09-2023 [facility] [place] [facility] Cardiology /Electrophysiology Progress Note HPI / Interval History: Mr. Reyes is s/p CABG x3 (IXKW-KCM-SLF, SVG-PDA, SVG-PL) on 10/03/[address] Beverly. He has past medical history of HTN, HLD, tobacco use. He was originally transferred from [place] with abnormal stress test. EF 55% This morning, he is up in chair. He states he is feeling better today. Denies chest pain, dyspnea, palpitations, dizziness, syncope, swelling, bleeding. He has been up to bathroom. Assessment/Plan Multivessel CAD s/p CABG x3 (ISTC-ZFV-XCQ, SVG-PDA, SVG-PL) on 10/03/[address] Beverly - Simón. Continue aspirin, atorvastatin, metoprolol, PPI. Pain control per CTS, advance activity. Patient is diuresing. Will need cardiac rehab as outpatient. Decrease aspirin to 81 mg as outpatient. HTN -Controlled. Continue metoprolol. HLD - Continue atorvastatin 80 mg. Tobacco use - Ongoing cessation advised. Will discuss with Dr. Shelton. Medications: acetaminophen, 1,000 mg, Oral, q8h aspirin, 324 mg, Oral, Daily atorvastatin, 80 mg, Oral, Daily chlorhexidine, 15 mL, Mouth/Throat, BID heparin, 5,000 Units, SubCUTAneous, BID insulin lispro, 0-6 Units, SubCUTAneous, TID WC latanoprost, 1 drop, Both Eyes, Nightly Lidocaine, 1 patch, Topical, Daily magnesium hydroxide, 30 mL, Oral, Daily methocarbamol, 1,000 mg, Oral, 3 times per day metoclopramide, 10 mg, IntraVENous, q6h metoprolol tartrate, 25 mg, Oral, BID mupirocin, , Nasal, BID pantoprazole, 40 mg, Oral, qAM AC polyethylene glycol (PEG) 3350, 17 g, Oral, Daily senna-docusate sodium, 2 tablet, Oral, Nightly sodium chloride 0.9%, 10 mL, IntraVENous, 2 times per day Infusion Medications: lactated ringers, 250 mL Physical Examination: Vitals: 10/05/23 0900 10/05/23 0905 10/05/23 1000 10/05/23 1100 BP: 116/72 BP Location: Patient Position: Pulse: 90 89 87 70 Resp: Temp: TempSrc: SpO2: 99% 96% 99% Weight: Height: Intake/Output Summary (Last 24 hours) at 10/05/2023 1158 Last data filed at 10/05/2023 1000 Gross per 24 hour Intake 458 ml Output 1192 ml Net -734 ml Wt Readings from Last 3 Encounters: 10/04/23 218 lb 14.7 oz (99.3 kg) Physical Exam Vitals reviewed. Constitutional: General: He is not in acute distress. Appearance: Normal appearance. He is not diaphoretic. Interventions: Nasal cannula in place. Comments: Up in chair HENT: Head: Normocephalic. Mouth/Throat: Pharynx: No oropharyngeal exudate. Eyes: General: Right eye: No discharge. Left eye: No discharge. Extraocular Movements: Extraocular movements intact. Pupils: Pupils are equal, round, and reactive to light. Cardiovascular: Rate and Rhythm: Normal rate and regular rhythm. Pulses: Normal pulses. Heart sounds: Normal heart sounds. No murmur heard. No gallop. Pulmonary: Effort: Pulmonary effort is normal. No respiratory distress. Breath sounds: Examination of the left-lower field reveals rales. Rales present. Chest: Comments: Mid-sternal chest incision without redness or drainage. Chest tube intact with serosanguinous drainage. Abdominal: General: Bowel sounds are decreased. There is no distension. Palpations: Abdomen is soft. Tenderness: There is no abdominal tenderness. Musculoskeletal: General: Normal range of motion. Cervical back: Normal range of motion and neck supple. Right lower leg: No edema. Left lower leg: No edema. Skin: General: Skin is warm and dry. Capillary Refill: Capillary refill takes less than 2 seconds. Neurological: General: No focal deficit present. Mental Status: He is alert and oriented to person, place, and time. Cranial Nerves: No cranial nerve deficit. Psychiatric: Mood and Affect: Mood normal. Laboratory Tests: Recent Labs 10/03/23 1127 10/03/23 1313 10/03/23 1731 10/04/23 0005 10/05/23 0023 NA 144 142 142 139 137 K 3.8 4.4 4.9 4.9 4.5 CL 112* 110* 108* 108* 104 CO2 21* 23 23 21* 25 BUN 21* 20 20 22* 22* CREATININE 1.33* 1.27* 1.41* 1.46* 1.49* Recent Labs 10/03/23 0005 10/03/23 1127 10/03/23 1128 10/03/23 1313 10/03/23 1731 10/04/23 0005 10/05/23 0023 WBC 5.5 7.2 -- 9.6 -- 7.0 6.8 HGB 13.2 9.5* 9.8 11.5* 10.9 10.2* 9.5* HCT 39.0* 28.3* -- 34.1* -- 29.5* 27.9* MCV 91.4 91.2 -- 91.4 -- 90.4 91.8 PLT 109* 104* -- 112* -- 114* 96* No results for input(s): CKTOTAL, CKMB, CKMBINDEX, TROPONINI in the last 72 hours. No results for input(s): BNP in the last 72 hours. No results for input(s): TRIG, HDL, LDLCALC, CHOL in the last 72 hours. No results found for: LDLCHOLESTER Lab Results Component Value Date TSH 2.295 09/29/2023 EF BP Date Value Ref Range Status 09/29/2023 55 55 - 100 % Final 09/29/23 TRANSESOPHAGEAL ECHOCARDIOGRAM (CONTRAST/3D PRN) 10/03/2023 3:26 PM (Final) Interpretation Summary Left Ventricle: Left ventricle size is normal. Normal left ventricular sy (more content not included)...[facility]11-09-2023 NoteCare Management Progress Note Patient remains in CTV ICU s/p CABG x 3 POD # 2. VSS, on 2L NC, in NSR on tele, likely remove chest tube today, increase BB, add robaxin for pain, increased bowel regimen-gas on x-ray/ no BM yet, insulin per endocrine, and PT recommending IPR/continue to assess pending progress. Patient from home with ROBERT following for home care needs. Discharge Milestones and Delays Expected Date/Time: 10/08/[address] discharge order Complete med reconciliation Case mgmt discharge readiness Clinical Stability Diagnsotic Workup Expected Discharge History Expected Date/Time Set By Reviewed At 10/08/2023 Toshia Chery RN 10/05/2023 8:51 AM 10/08/2023 Toshia Chery RN 10/04/2023 8:07 AM 10/08/2023 Toshia Chery RN 10/02/2023 10:01 AM 10/05/2023 Jacquelin Warren, HEALTH PROMOTER - STAKEHOLDER MANAGER 09/28/2023 3:56 PM Length of Stay (Days): 6 GMLOS: [address] [place], [place] 1403511-08-2023 NoteReceived referral and reviewed chart. Phase II Cardiac Rehab Referral discussed with Jadon Reyes. Patient prefers cardiac rehab at [facility] due to proximity to home. Given contact information on cardiac rehab at preferred location. [facility]11-08-2023 Consult note* Manjula Salas - 10/04/2023 2:59 PM EST Associated Order(s): IP CONSULT TO CARDIAC REHAB Received referral and reviewed chart. Phase II Cardiac Rehab Referral discussed with Jadon Reyes. Patient prefers cardiac rehab at [facility] due to proximity to home. Given contact information on cardiac rehab at preferred location. * Nae Hagen RD - 10/04/2023 11:38 AM ESTAssociated Order(s): IP CONSULT TO DIETITIAN Nutrition Assessment Type and Reason for Visit: Initial, Consult, Patient Education (s/p open heart surgery) Nutrition Recommendations/Plan: Continue regular diet as ordered to promote p.o. intake. If appetite is improved and pt is consistently consuming >75% at meals, consider adding cardiac diet restrictions (low fat/low chol. High fiber, FLOWER) Per MNT protocol, will order Ensure HP BID to promote p,o./protein intake for optimal post-op healing (160 kcal, 16 g protein, 8 oz each) RD provided heart healthy diet handout with [facility] RD Phone number for reference. Will return (as able) prior to admission for verbal diet education RD will monitor overall nutrition status and will follow weekly Malnutrition Assessment: Malnutrition Status: At risk for malnutrition (Comment) (poor appetite s/p open heart surgery) Nutrition Assessment: Pt with PMH including HTN, HLD, and smoking, presented to [facility] ED on 09/27/23 after he underwenta stress test that was positive for reversible ischemia. On admission in ED, his EKG showed T wave inversions in lead III and aVF, troponin negative. He was started on aspirin, heparin and Cardiologyconsulted. He had a cardiac catheterization on 09/28/23 which revealed multivessel CAD. He was trans ferred to [facility] for CT surgery evaluation. Pt underwent CABG x3 on 10/03. Extubated post-op, with regular diet ordered. Pt reports poor appetite, has not had anything to eat yet, denies N/V. Prior to admission, he was eating well, no unintended weight loss. NKFA. Pt was previously following general diet, no prior diet education. RD provided heart healthy diet handout with [facility] RD phone number. Pt is agreeable to ONS Estimated Daily Nutrient Needs: Energy Requirements Based On: Kcal/kg Weight Used for Energy Requirements: [place] (25-30 kcal/kg) Weight for Energy Calculation (kg): 80.7 kg Total Energy Requirements (kcals/day): 5799-5800 Weight Used for Protein Requirements: [place] (1.2-1.5 g/kg) Weight in Kg Used for Protein Requirements: 80.7 kg Estimated Total Protein (g/day): 97-121 Estimated Daily Total Fluid (ml/day): per MD Nutrition Related Findings: Nutrition History: Independent of feeding. Lives with: Spouse/significant other Teeth: Intact GI symptoms: Decreased appetite. Burt Scale Score: 16 .Wound Type: Surgical Incision Net IO Since Admission: 2,511.28 mL [10/04/23 1138] Edema: RUE Edema: None, LUE Edema: None, , Bowel Sounds (All Quadrants): Hypoactive Abdomen Inspection: Soft, Nondistended Labs and meds reviewed: acetaminophen, 1,000 mg, Oral, q8h aspirin, 324 mg, Oral, Daily atorvastatin, 80 mg, Oral, Daily ceFAZolin, 2,000 mg, IntraVENous, q8h chlorhexidine, 15 mL, Mouth/Throat, BID heparin, 5,000 Units, SubCUTAneous, BID latanoprost, 1 drop, Both Eyes, Nightly Lidocaine, 1 patch, Topical, Daily metoprolol tartrate, 25 mg, Oral, BID mupirocin, , Nasal, BID pantoprazole, 40 mg, IntraVENous, Daily polyethylene glycol (PEG) 3350, 17 g, Oral, Daily senna-docusate sodium, 2 tablet, Oral, Nightly sodium chloride 0.9%, 10 mL, IntraVENous, 2 times per day insulin regular, 1-50 Units/hr, Last Rate: 0.5 Units/hr (10/04/23 1056) lactated ringers, 250 mL sodium chloride, 20 mL/hr, Last Rate: 20 mL/hr (10/03/23 1300) BMP: Recent Labs 10/03/23 1127 10/03/23 1313 10/03/23 1731 10/04/23 0005 NA 144 142 142 139 K 3.8 4.4 4.9 4.9 CL 112* 110* 108* 108* CO2 23 21* BUN 21* 20 20 22* CREATININE 1.33* 1.27* 1.41* 1.46* GLUCOSE 109* 116* 152* 130* CALCIUM 8.3* 8.2* 8.1* 8.2* MG 4.0* 3.2* -- 2.6* PHOS 3.3 -- -- -- Recent Labs 10/04/23 0414 10/04/23 0649 10/04/23 0802 10/04/23 0909 10/04/23 1004 10/04/23 1055 POCGLU 131* 134* 120* 120* 114* 121* Lab Results Component Value Date HGBA1C 5.4 09/29/2023 Lab Results Component Value Date EFBP 55 09/29/2023 Current Nutrition Therapies: Adult diet Regular Current Oral Intake Average Meal Intake: 76-100% (prior to surgery) Average Supplements Intake: None Ordered Anthropometric Measures: Height: 182.9 cm (6') Current Body Weight: 99.3 kg (218 lb 14.7 oz) (bedscale 10/04) Admission Body Weight: 98.8 kg (217 lb 13 oz) (09/29) Usual Body Weight: 101 kg (222 lb) (06/08/23) % Weight Change (Calculated): -1.4 [place] Body Weight (lbs) (Calculated): 178 lbs [place] Body Weight (Kg) (Calculated): 81 kg % [place] Body Weight (Calculated): 123 % BMI (kg/m2) (Calculated): 29.7 BMI Categories: Overweight (BMI 25.0-29.9) Wt Readings from Last 10 Encounters: 10/04/23 99.3 kg (218 lb 14.7 oz) Nutrition Diagnosis: Increased nutrient needs related to increase demand for energy/nutrients as evidenced by wounds (surgical) Nutrition Interventions: Food and/or Nutrient Delivery: Continue Current Diet, Start Oral Nutrition Supplement Nutrition Education/Counseling: No recommendation at this time Coordination of Nutrition Care: Continue to monitor while inpatient Goals: Goals: PO intake 75% or greater, prior to discharge Nutrition Monitoring and Evaluation: Behavioral-Environmental Outcomes: Knowledge or Skill Food/Nutrient Intake Outcomes: Food and Nutrient Intake, Supplement Intake Physical Signs/Symptoms Outcomes: Biochemical Data, GI Status, Skin, Weight Discharge Planning: Too soon to determine Nae Hagen RD, LD Contact: *[phone] or via [employer] chat * Liliam Alan APRN - CECILIO - 10/03/2023 2:47 PM ESTAssociated Order(s): IP CONSULT TO ENDOCRINOLOGY Department of Internal Medicine Division of Endocrinology, Diabetes, & Metabolism Endocrinology Note Patient Name: Jadon Reyes : 1955 AGE: 67 y.o. Room/Bed: T1-110/T1-110 A Admission Date: 09/29/2023 Visit Date: 10/03/2023 Reason for Endocrine Consult: post op CABG Provider/Team Requesting Consult: CTS PCP: JUAN SOUSA MD Outpt Assistant Hall Director: N/A ASSESSMENT: S/P CABG x 3 10/03/2023 Stress induced hyperglycemia HTN/HLD smoker PLAN: Continue insulin drip protocol ICU goal <180 GMF goal <150 POCT BG ACHS Hypoglycemia per protocol Carb controlled diet when advanced ANTICIPATED ENDOCRINE HOME GOING RECOMMENDATIONS: Optimized for Discharge from Endocrine standpoint: No Home Going Endocrine Rx Recommendations-- TBD not likely needed Outpt Follow Up-- PCP SUBJECTIVE/HPI: CHIEF COMPLAINT: No chief complaint on file. Patient presented to [facility] after was abnormal. He was transferred to [facility] after [facility] showed multivessal CAD Patient underwent CABG x 3 10/03/23 Per EHR no hx DM or DM medications Lab Results Component Value Date HGBA1C 5.4 09/29/2023 Glucose Date/Time Value Ref Range Status 10/03/2023 12:36 PM 112 (H) 70 - 100 mg/dL Final Patient resting in bed Patient is just extubated before my arrival per nursing, patient medicated and did not answer questions, only opened eye momentarily when name called No family present at this time Insulin drip not yet started due to BG 112 does not meet drip protocol as yet Discussed with nursing Review of Systems Unable to perform ROS: Acuity of condition ROS negative except for those mentioned in HPI. OBJECTIVE: Vitals: 10/03/23 0600 10/03/23 0839 10/03/23 1232 10/03/23 1300 BP: BP Location: Patient Position: Pulse: 71 71 Resp: 14 18 Temp: 36.4 C (97.5 F) TempSrc: Core SpO2: 100% 100% Weight: 212 lb (96.2 kg) 212 lb (96.2 kg) Height: 6' (1.829 m) Physical Exam Vitals reviewed. HENT: Head: Normocephalic. Cardiovascular: Rate and Rhythm: Normal rate and regular rhythm. Pulses: Normal pulses. Pulmonary: Effort: Pulmonary effort is normal. Breath sounds: Normal breath sounds. Abdominal: General: Bowel sounds are normal. Musculoskeletal: General: No swelling. Normal range of motion. Skin: General: Skin is warm and dry. Comments: Sternal incision clean and dry Left leg wrapped Neurological: Comments: Sleepy, recently extubated 24 hour intake/output: Intake/Output Summary (Last 24 hours) at 10/03/2023 1449 Last data filed at 10/03/2023 1356 Gross per 24 hour Intake 3130.28 ml Output 2980 ml Net 150.28 ml Diet: NPO diet Medications (as per EMR): HomeMeds: Current Outpatient Medications Medication Instructions aspirin 81 mg, Oral, Daily latanoprost (Xalatan) 0.005 % ophthalmic solution 1 drop, Both Eyes, Nightly losartan-hydroCHLOROthiazide (Hyzaar) 100-12.5 MG tablet 1 tablet, Oral, Daily Scheduled Meds:acetaminophen, 1,000 mg, Oral, q8h ceFAZolin, 2,000 mg, IntraVENous, q8h chlorhexidine, 15 mL, Mouth/Throat, BID Lidocaine, 1 patch, Topical, Daily mupirocin, , Nasal, BID nitroprusside in sodium chloride 0.9 % (500 mcg/mL), , , [START ON 10/04/2023] pantoprazole, 40 mg, IntraVENous, Daily polyethylene glycol (PEG) 3350, 17 g, Oral, Daily senna-docusate sodium, 2 tablet, Oral, Nightly sodium chloride 0.9%, 10 mL, IntraVENous, 2 times per day Continuous Infusions:EPINEPHrine, 0.01-0.2 mcg/kg/min insulin regular, 1-50 Units/hr, Last Rate: Stopped (10/03/23 1300) lactated ringers, 250 mL niCARdipine, 3-15 mg/hr nitroglycerin, 5-300 mcg/min norepinephrine, 0.01-3.3 mcg/kg/min propofol, 5-50 mcg/kg/min, Last Rate: Stopped (10/03/23 1300) sodium chloride, 20 mL/hr, Last Rate: 20 mL/hr (10/03/23 1300) PRN Meds:PRN medications: albumin human, calcium gluconate, dextrose, dextrose, EPINEPHrine, glucagon (rDNA), glucose, ipratropium-albuterol, lactated ringers, magnesium hydroxide, magnesium sulfate OR magnesium sulfate, morphine sulfate OR morphine sulfate, niCARdipine, nitroglycerin, nitroprusside in sodium chloride 0.9 % (500 mcg/mL), norepinephrine, ondansetron ODT OR ondansetron,oxyCODONE OR oxyCODONE, potassium chloride OR potassium chloride OR potassium chloride,[START ON 10/04/2023] potassium chloride CR, sodium chloride, sodium chloride 0.9% Diagnostic Workup: I reviewed pertinent Laboratory results, Radiographic results, and Other Clinical Notes at the timeof today's encounter. Labs: No components found for: LABA1C No components found for: EAG Lab Results Component Value Date NA 142 10/03/2023 K 4.4 10/03/2023 CL 110 (H) 10/03/2023 CO2 23 10/03/2023 BUN 20 10/03/2023 CREATININE 1.27 (H) 10/03/2023 GLUCOSE 116 (H) 10/03/2023 CALCIUM 8.2 (L) 10/03/2023 No results found for: CHLPL, CHOL No results found for: TRIG No results found for: HDL No results found for: LDLCALC No results found for: VLDL No results found for: CHOLHDLRATIO No results found for: [id number] Lab Results Component Value Date TSH 2.295 09/29/2023 Radiology reportsas per the Radiologist Radiology: ECG 12 lead one time STAT Result Date: 10/01/2023 Sinus rhythm Probable left atrial enlargement Inferior infarct, old Electronically Signed On 10-01-2023 15:41:11 EST by Ap Shelton ECG 12 lead in a.m. Result Date: 09/30/2023 Sinus bradycardia Inferior infarct, old Electronically Signed On 09-30-2023 20:45:53 EDT by Ap Shelton Vascular US lower extremity vein mapping for bypass bilateral Result Date: 09/29/2023 Vessel diameters as noted in the table below. No evidence of superficial thrombosis in the right lower extremity. No evidence of superficial thrombosis in the left lower extremity. Vascular US carotid artery duplex bilateral Result Date: 09/29/2023 <50% stenosis in the right internal carotid artery. Mild and heterogeneous plaque (proximal) in the right internal carotid artery. <50% stenosis in the left internal carotid artery. Mild and heterogeneous plaque (proximal) in the left internal carotid artery. Normal antegrade flow involving the right vertebral artery. Normal antegrade flow involving the left vertebral artery. Transthoracic echocardiogram (TTE) complete with contrast, bubble, strain, and 3D PRN Result Date: 09/29/2023 Left Ventricle: Left ventricle size is normal. Mildly increased wall thickness. Mass index 2D is 108.5 g/m2. Findings consistent with mild concentric hypertrophy. Normal left ventricular systolic function. EF by 2D Simpsons Biplane is 55%. Normal wall motion. Right Ventricle: Right ventricle size is normal. Normal systolic function. Aorta: Normal sized sinuses of Valsalva. Mildly dilated ascending aorta. Ao ascending diameter is 3.8 cm. No significant valvular abnormalities. XR chest 1 view Result Date: 09/29/2023 Patient Name: JADON REYES : 1955 [facility]#: [id number] Exam Date/Time: 09/29/2023 08:13 Procedure: XR CHEST 1 VIEW Ordering Provider: WARREN JENNIFER Reason For Exam: preop cabg CLINICAL INDICATION: preop cabg COMPARISON: None TECHNIQUE: Single portable AP radiograph of the chest. FINDINGS: LUNGS/PLEURA:Clear with no acute infiltrate or effusion. No pneumothorax. The trachea is midline. MEDIASTINUM:Heart size and mediastinal contours are normal. VASCULARITY: Normal BONES:Unremarkable Lungs clear with no acute cardiopulmonary disease process. Report Dictated on Electronically Signed By: Jose Lawrence MD Electronically Signed Date/Time: 09/29/2023 9:24AM EDT History/Other: Past Medical History: Past Medical History: Diagnosis Date Glaucoma Hypertension Past Surgical History: History reviewed. No pertinent surgical history. Allergy(ies): Allergies Allergen Reactions Lisinopril Cough Family History: Family History Problem Relation Name Age of Onset Coronary artery disease Father Coronary artery disease Maternal Grandfather Heart attack Maternal Grandfather Coronary artery disease Paternal Grandfather Heart attack Paternal Grandfather Social History: Social History Tobacco Use Smoking status: Former Types: Cigars, Cigarettes Smokeless tobacco: Former Types: Chew Substance Use Topics Alcohol use: Yes Comment: Occasional Drug use: Never Portions of the information within this encounter were entered using an electronic dictation system. Best attempts were made to edit/proofread the information prior to note completion. Despite the review of information, some errors may remain. If there are questions related to the information contained within the note please contact the signing physician directly. I spent 20 minutes with the pt which involved coordination of care, medical evaluation, review of records, and/or counseling of the pt regarding his/her condition/disease state/prognosis on the date of this note. Associated attestation - Hanna Díaz MD - 10/03/2023 6:56 PM EST I performed a history and physical examination of the patient. I have reviewed the patient's chart including pertinent history, medications, labs, radiology, and other reports. I reviewed the resident/ANIBAL's note, agree with the documented findings and plan of care (with modifications noted if any),and discussed the management plan. I have performed a substantive portion of the the medical decision making. Pt is s/p CABG. No history of diabetes. BG stable. Pt on insulin drip post op, currently at 1.5 units/hr. Patient extubated. Still somnolent. Records reviewed. Lab Results Component Value Date HGBA1C 5.4 09/29/2023 Lab Results Component Value Date GLUCOSE 152 (H) 10/03/2023 CALCIUM 8.1 (L) 10/03/2023 NA 142 10/03/2023 K 4.9 10/03/2023 CO2 23 10/03/2023 CL 108 (H) 10/03/2023 BUN 20 10/03/2023 CREATININE 1.41 (H) 10/03/2023 BP (!) 146/83 Pulse 81 Temp 36.4 C (97.5 F) (Core) Resp 23 Ht 6' (1.829 m) Wt 212 lb (96.2 kg) SpO2 100% BMI 28.75 kg/m Sleepy, not in distress, responsive, RRR, chest incision intact, clear breath sounds, no rales, +chest tubes, abdomen soft, non-tender, no edema. Dx: Stress hyperglycemia. CAD s/p CABG. Plan: - will continue insulin infusion per protocol then transition to subcutaneous insulin - continue blood glucose monitoring - discussed postop hyperglycemia management and goals of therapy - patient will unlikely require any pharmacotherapy on discharge for hyperglycemia - will follow Total time 35 minutes which include review of records, counseling, management, and coordination of care as documented in note. * Jacquelin Warren, HEALTH PROMOTER - STAKEHOLDER MANAGER - 10/03/2023 12:50 PM EST Images from the original note were not included. [facility]: Critical Care Consultation Note Date: 10/03/23 PATIENT NAME: Jadon Reyes : 1955 (67 y.o.) Reason for Consult: Critical Care & Vent Management HPI: 67 year old male patient with a known PMHx that includes HTN, HLD, and smoking. He presented to [facility] ED on 09/27/23 after he was called with results of a stress test he underwent. The stress test was completed earlier in the day on 09/27/23 and was positive for reversible ischemia. On admission in ED, his EKG showed T wave inversions in lead III and aVF, troponin negative. He was started on aspirin, heparin and Cardiology consulted. He had a cardiac catheterization on 09/28/23 which revealedmultivessel CAD. He was transferred to [facility] for CABG consideration, consented to surgical revascularization. Surgery: 10/03/23: CABG x3 (SCHWAB-LAD, SVG-PDA, SVG-PL), LLE EVH Interval History: 10/03/23: POD #0: Patient arrived to the unit, intubated and sedated. Surgical hand off completed below. Review of Systems Unable to perform ROS: Intubated Allergies: Lisinopril Past Medical History: has a past medical history of Glaucoma and Hypertension. Past Surgical History: has no past surgical history on file. Social History: reports that he has quit smoking. His smoking use included cigars and cigarettes. He has quit usingsmokeless tobacco. His smokeless tobacco use included chew. He reports current alcohol use. He reports that he does not use drugs. Family History: family history includes Coronary artery disease in his father, maternal grandfather, and paternal grandfather; Heart attack in his maternal grandfather and paternal grandfather. Medications: Prior to Admission medications Medication Sig Start Date End Date Taking? Authorizing Provider aspirin 81 MG EC tablet Take 81 mg by mouth daily. Historical Provider, latanoprost (Xalatan) 0.005 % ophthalmic solution Administer 1 drop into both eyes Nightly. Historical Provider, losartan-hydroCHLOROthiazide (Hyzaar) 100-12.5 MG tablet Take 1 tablet by mouth daily. Historical Provider, Surgery Hand Off: Arrival Time in HLU: 13:32 Complications/Pertinent Events: Afib/flutter coming off pump, now SR. Had elevated K (above 6) during surgery Last Paralytic: 10:49 am Medications given in route: none Gtts OR report Propofol: 20 mcg/kg/min Insulin:off Amicar: 29 Current gtts upon arrival Propofol: 20 mcg/kg/min Insulin:off Amicar: 29 Devices: Epicardial wires: yes [x] no [] Blood Transfusions Intra Op: yes [] no [] pRBC: 0 FFP: 2 Cryo: 0 PLT: 0 CellSaver: yes Vital Signs including Cardiac Numbers (if indicated) at Conclusion of Hand-off OR HLU CO 5.26 CI 2.45 CVP 6 SVR 1079 PAP Additional Interventions/Misc during Handoff none Objective: BP (!) 146/83 Pulse 60 Temp 36.9 C (98.4 F) (Temporal) Resp 16 Ht 6' (1.829 m) Wt 212 lb (96.2 kg) SpO2 98% BMI 28.75 kg/m Intake/Output Summary (Last 24 hours) at 10/03/2023 1251 Last data filed at 10/03/2023 1239 Gross per 24 hour Intake 3130.28 ml Output 4280 ml Net -1149.72 ml Physical Exam Constitutional: Interventions: He is sedated and intubated. HENT: Mouth/Throat: Comments: ETT in place Neck: Vascular: No JVD. Trachea: Trachea normal. Cardiovascular: Rate and Rhythm: Normal rate and regular rhythm. Pulses: Radial pulses are 2+ on the right side and 2+ on the left side. Heart sounds: Normal heart sounds, S1 normal and S2 normal. Pulmonary: Effort: He is intubated. Breath sounds: Decreased breath sounds present. Abdominal: General: Bowel sounds are absent. Musculoskeletal: Right lower leg: No edema. Left lower leg: No edema. Skin: Findings: Bruising and ecchymosis present. Comments: Surgical dressing dry and intact Diagnostics: Reviewed in EMR Labs: Reviewed in EMR BMP: Recent Labs 10/01/23 0006 10/03/23 0005 10/03/23 1127 NA 136 138 144 K 4.0 4.4 3.8 CL 105 109* 112* CO2 21* 22 21* BUN 23* 23* 21* CREATININE 1.23 1.28* 1.33* CALCIUM 8.6 8.7 8.3* MG -- -- 4.0* PHOS -- -- 3.3 CBC: Recent Labs 10/01/23 0006 10/03/23 0005 10/03/23 1127 10/03/23 1128 WBC 4.6 5.5 7.2 -- HGB 13.8 13.2 9.5* 9.8 HCT 41.2 39.0* 28.3* -- PLT 109* 109* 104* -- MCV 91.2 91.4 91.2 -- RDW 14.2 14.3 14.2 -- INR: Recent Labs 10/03/23 112 INR 1.3* Assessment: Multivessel CAD s/p CABG HTN HLD Tobacco abuse, quit 2 weeks ago Post operative Pulm Management: Normal Post-operative Course Post-operative Atrial Fibrillation: []Yes [x] No Acute blood loss anemia/consumptive coagulopathy Plan: - Sugamadex - Albumin 50g & LR 500mL bolus x1 - Redraw labs - Hemodynamic goals: CI >2.0, SBP 90-130 mmHg, MAP 60-75 - PRN Hypertension 1st option Cardene gtt 2nd option or if Cardene unavailable Nitro -PRN Hypotension CI >2.0 euvolemic with low SVR- Levophed gtt CI <2.0 euvolemic - Epinephrine gtt - Temp pacing wires/mode: VVI @ 50 - Chest tubes: no air leak or fluctuation noted, suction - Cefazolin - surgical prophy for 5 doses total - Wean to Extubation: Arrival Time in unit: - Vent: ACVC+, TV 6ml/kg/min, rate 12, fio2 100% PEEP 8 VAP protocol: HOB >30 degrees; peridex BID - HgbA1c: 5.4 - Blood glucose 112 - Insulin gtt; per endo/protocol - GI prophy: Protonix IV daily Patient treatment plan and plan of care discuss with Dr. Ospina Associated attestation - Carlos Ospina DO - 10/03/2023 3:53 PM EST I have personally performed a [id number] diagnostic evaluation on this patient on date of slzhmie42/07/23 . History, labs, imaging studies, and electronic medical record have been reviewed by me. This note documented by the []feed house supervisor [x]ANIBAL reflects my history, exam, and medical decision making. I have reviewed and agree with the care plan. Changes were made in the orders as necessary. ROS documentation was reviewed and negative unless otherwise stated in HPI. Additional pertinent interval history, ROS, and physical exam findings: 67 y/o M with PMHx as noted below and elsewhere in EMR. Recent + stress test on 09/27/23 showing reversible ischemia led to ER eval in [facility]. PresentationEKG showed changes (see H&P). Underwent cath on 09/28/23 showing MVCAD. Transferred to [facility] for CTS eval. 09/29/23 EF 55%. Mild LVH. Normal LV wall motion. RV normal is size and fcn. No valve abnorms. MICU consulted for assistance with postop mgmt. Vfib x1 coming off of pump. Shocked. Amio bolus x1. K was 6 intra op. Received 10 units of insulin. Received 2 units plts intra op. Post op #s upon unit arrival: CO 5.26 CI 2.45 SVR 1079 CVP 6. Assessment: CABGx3 10/03/23 CAD s/p CABG Tobacco use HTN Stress hyperglycemia Plan: Continue vent bundle/mgmt. Anticipate ability to follow fast track extubation (6hr edward 1830). Monitor for s/s bleeding. Repeat BMP to look at K since it was high intra-op. Continue postop insulin protocol. Endo consult. Agree with remainder of recs in ANIBAL note plan. Total critical care time for this patient with life-threatening unstable organ failure, including direct patient contact, management of life support systems, review of data including imaging and labs, and discussions with other team members and physicians at least 40min so far today, excluding procedures. * Stephen Urias MD - 09/29/2023 11:58 AM EDT [facility] Interventional Cardiology Consultation Note Today's Date: 09/29/2023, 11:59 AM Patient Name: Jadon Reyes Date of admission: 09/29/2023 6:59 AM Patient's age: 67 y.o., 1955 Admission Dx: CAD in [place] artery [I25.10] Primary Care Physician:JUAN SOUSA MD Referring : ARCHIE Cortez CNP History Obtained From: patient Chief Complaint: Chest pain History of Present Illness: The patient is a 67 y.o. male with past medical history of hypertension, hyperlipidemia, tobacco abuse who presents from outside hospital for evaluation for CABG for multivessel disease. Ofnote, patient has been having chest pain with exertion going on for few months. He was evaluated with a nuclear stress test in the outside facility which was positive for ischemia. Subsequently he underwent a coronary angiogram yesterday which showed multivessel disease. He was then transferred to [facility] for evaluation for CABG. Patient was seen by CT surgery. Interventional cardiology consulted to discuss percutaneous revascularization option. Patient currently is resting in bed and denies having any chest pain, shortness of breath. No palpitation. No lower extremity swelling. No history of syncope. He quit tobacco 2 weeks ago. Past Medical History: has a past medical history of Glaucoma and Hypertension. Past Surgical History: has no past surgical history on file. Allergies: Lisinopril Medications: Home Medications: Prior to Admission medications Medication Sig Start Date End Date Taking? Authorizing Provider aspirin 81 MG EC tablet Take 81 mg by mouth daily. Historical Provider, latanoprost (Xalatan) 0.005 % ophthalmic solution Administer 1 drop into both eyes Nightly. Historical Provider, losartan-hydroCHLOROthiazide (Hyzaar) 100-12.5 MG tablet Take 1 tablet by mouth daily. Historical Provider, Current Medications: aspirin, 81 mg, Oral, Daily atorvastatin, 80 mg, Oral, Daily carvedilol, 6.25 mg, Oral, BID WC enoxaparin, 40 mg, SubCUTAneous, Daily [START ON 09/30/2023] influenza, 0.5 mL, IntraMUSCular, Once latanoprost, 1 drop, Both Eyes, Nightly pantoprazole, 40 mg, Oral, q AM sodium chloride 0.9%, 5-40 mL, IntraVENous, q12h Infusions: nitroglycerin, 5-200 mcg/min Social History: reports that he has quit smoking. His smoking use included cigars and cigarettes. He has quit usingsmokeless tobacco. His smokeless tobacco use included chew. He reports current alcohol use. He reports that he does not use drugs. Family History: family history includes Coronary artery disease in his father, maternal grandfather, and paternal grandfather; Heart attack in his maternal grandfather and paternal grandfather. No h/o suddencardiac .None for premature CAD Review of Systems: A 12 point review of system was performed. Pertinent positive and negative mentioned in HPI. Otherwise negative. Physical Examination: VITAL SIGNS: Vitals: 09/29/23 0752 09/29/23 0800 09/29/23 0900 09/29/23 1000 BP: (!) 145/82 136/71 (!) 132/90 136/79 BP Location: Left arm Patient Position: Lying Pulse: 74 71 73 74 Resp: 16 Temp: 37.3 C (99.1 F) TempSrc: Temporal SpO2: 95% 95% 97% 94% Weight: Height: No intake or output data in the 24 hours ending 09/29/23 1159 Wt Readings from Last 3 Encounters: 09/29/23 217 lb 13 oz (98.8 kg) 0 General: Resting comfortably and does not appear to be in any acute distress HEENT: Atraumatic, normocephalic, moist mucous membrane. Pupils equal, round and reactive to light.External ears intact. Neck: Supple Lungs: Clear to auscultation bilaterally Heart: Normal S1-S2 Abdomen: Soft, nontender, nondistended Extremities: No edema Neuro: Alert and oriented. No gross focal deficits Psych: Appropriate mood Skin: Normal temperature. No severe rashes or lesions. Data: Diagnostics: EKG: Sinus rhythm Inferior infarct, old CBC: Recent Labs 09/29/23 0703 WBC 6.2 HGB 14.7 HCT 44.1 MCV 91.1 PLT 124* BMP: Recent Labs 09/29/23 07 NA 137 K 4.6 CL 106 CO2 21* BUN 21* CREATININE 1.25 EGFR 62.7 Biomarkers: Recent Labs 09/29/23 07 TROPONINI <0.012 PRO-BNP: Recent Labs 09/29/23702 BNP 482* ABGs: No results found for: PHART, PO2ART, [id number] PT/INR: No results for input(s): INR in the last 72 hours. APTT: Recent Labs 09/29/23704 APTT 35.9* TSH: Lab Results Component Value Date TSH 2.295 09/29/2023 FASTING LIPID PANEL: No results found for: CHOL No results found for: HDL No results found for: LDLCALC No results found for: TRIG No results found for: CHOLHDL LIVER PROFILE: Results from last 7 days Lab Units 09/29/23702 AST U/L 37 ALT U/L 40 Hemoglobin A1C: No results found for: HGBA1C Iron: No results found for: IRON, TIBC, FERRITIN Radiology: @RISRSLT@ CXR: XR chest 1 view Final Result Lungs clear with no acute cardiopulmonary disease process. Report Dictated on Electronically Signed By: Jose Lawrence MD Electronically Signed Date/Time: 09/29/2023 9:24 AM EDT Vascular US carotid artery duplex bilateral (Results Pending) Vascular US lower extremity vein mapping for bypass bilateral (Results Pending) Last EKG 09/29/23 ECG 12-LEAD (Preliminary) This result has not been signed. Information might be incomplete. Impression Sinus rhythm Probable left atrial enlargement Inferior infarct, old REPORTS REVIEWED: Last Echo No results found for this or any previous visit. Last Cath No results found for this or any previous visit. Per paperwork provided by [facility]: Dominance- Right Left Main- mild luminal irregularities LAD- mid LAD 95% stenosis Diag- proximal 40-50% stenosis Circ- prox circ 40% stenosis OM1- proximal 20-30% stenosis RCA- prox RCA 100% RT PLV- two tandem 80% stenosis Last Stress Test No results found for this or any previous visit. Last EP study No results found for this or any previous visit. No results found for: EFBP, PLVEF, LVEFPHYS, LVEF2D, EF Problem List: Principal Problem: CAD in [place] artery ASSESSMENT & PLAN: Multivessel CAD Hypertension Hyperlipidemia Tobacco abuse Recommendations Cath Images personally reviewed. PCI is reasonable for him. Patient is going to discuss with his family members and decide whether he wants to proceed with CABG versus PCI. Continue aspirin 81 mg once a day. Continue atorvastatin 80 mg once a day. Continue Coreg 6.25 mg twice daily. TTE to assess LV function. Patient was seen, examined and discussed with who is in agreement with the plan. Stephen Urias MD Interventional Youth Associate [facility] Associated attestation - Ap Shelton MD - 09/30/2023 12:45 PM EDT I, Dr. Ap Shelton, saw and evaluated the patient 09/29/23. I personally obtained the galarza and critical portions of the history and physical exam. I reviewed the chart and discussed the patient withthe resident/fellow. I agree with the resident's and/or fellow's medical decision making and have edited the note to reflect my findings and my assessment and plan. Very pleasant 67-year-old man who was transferred from another facility for evaluation for possibleCABG. He has been having some worsening chest pain with exertion for many months and had a nuclear stress test which was positive. Coronary angiography revealed a mid distal RCA occlusion and a 90% mid LAD lesion. The LAD provides fairly robust collaterals to a large posterior lateral branch and PDA from the RCA. He has no left main or proximal LAD disease. Plan was for CABG this admission thoughthe patient and the surgical team are requesting a heart team approach to discuss options for PCI. We had a long discussion about options in this situation. 1 option would be PCI of the mid LAD which would be feasible. This would improve collateral flow to the distal RCA. A second option would be PCI of the LAD and RCA. We did discuss that bypass surgery was reasonable here. He does not have anysignificant left main or proximal LAD disease so CABG may not provide a mortality benefit in this situation though given his young age and his chronic total occlusion of the RCA it may provide a moredurable result than PCI. The patient would like to talk to some of his family members but he is leaning toward CABG. documented in this [facility]11-08-2023 NoteNutrition Assessment Type and Reason for Visit: Initial, Consult, Patient Education (s/p open heart surgery) Nutrition Recommendations/Plan: Continue regular diet as ordered to promote p.o. intake. If appetite is improved and pt is consistently consuming >75% at meals, consider adding cardiac diet restrictions (low fat/low chol. High fiber, FLOWER) Per MNT protocol, will order Ensure HP BID to promote p,o./protein intake for optimal post-op healing (160 kcal, 16 g protein, 8 oz each) RD provided heart healthy diet handout with [facility] RD Phone number for reference. Will return (as able) prior to admission for verbal diet education RD will monitor overall nutrition status and will follow weekly Malnutrition Assessment: Malnutrition Status: At risk for malnutrition (Comment) (poor appetite s/p open heart surgery) Nutrition Assessment: Pt with PMH including HTN, HLD, and smoking, presented to [facility] ED on 09/27/23 after he underwent a stress test that was positive for reversible ischemia. On admission in ED, his EKG showed T wave inversions in lead III and aVF, troponin negative. He was started on aspirin, heparin and Cardiology consulted. He had a cardiac catheterization on 09/28/23 which revealed multivessel CAD. He was transferred to [facility] for CT surgery evaluation. Pt underwent CABG x3 on 10/03. Extubated post-op, with regular diet ordered. Pt reports poor appetite, has not had anything to eat yet, denies N/V. Prior to admission, he was eating well, no unintended weight loss. NKFA. Pt was previously following general diet, no prior diet education. RD provided heart healthy diet handout with [facility] RD phone number. Pt is agreeable to ONS Estimated Daily Nutrient Needs: Energy Requirements Based On: Kcal/kg Weight Used for Energy Requirements: [place] (25-30 kcal/kg) Weight for Energy Calculation (kg): 80.7 kg Total Energy Requirements (kcals/day): 6746-4415 Weight Used for Protein Requirements: [place] (1.2-1.5 g/kg) Weight in Kg Used for Protein Requirements: 80.7 kg Estimated Total Protein (g/day): 97-121 Estimated Daily Total Fluid (ml/day): per MD Nutrition Related Findings: Nutrition History: Independent of feeding. Lives with: Spouse/significant other Teeth: Intact GI symptoms: Decreased appetite. Burt Scale Score: 16 .Wound Type: Surgical Incision Net IO Since Admission: 2,511.28 mL [10/04/23 1138] Edema: RUE Edema: None, LUE Edema: None, , Bowel Sounds (All Quadrants): Hypoactive Abdomen Inspection: Soft, Nondistended Labs and meds reviewed: acetaminophen, 1,000 mg, Oral, q8h aspirin, 324 mg, Oral, Daily atorvastatin, 80 mg, Oral, Daily ceFAZolin, 2,000 mg, IntraVENous, q8h chlorhexidine, 15 mL, Mouth/Throat, BID heparin, 5,000 Units, SubCUTAneous, BID latanoprost, 1 drop, Both Eyes, Nightly Lidocaine, 1 patch, Topical, Daily metoprolol tartrate, 25 mg, Oral, BID mupirocin, , Nasal, BID pantoprazole, 40 mg, IntraVENous, Daily polyethylene glycol (PEG) 3350, 17 g, Oral, Daily senna-docusate sodium, 2 tablet, Oral, Nightly sodium chloride 0.9%, 10 mL, IntraVENous, 2 times per day insulin regular, 1-50 Units/hr, Last Rate: 0.5 Units/hr (10/04/23 1056) lactated ringers, 250 mL sodium chloride, 20 mL/hr, Last Rate: 20 mL/hr (10/03/23 1300) BMP: Recent Labs 10/03/23 1127 10/03/23 1313 10/03/23 1731 10/04/23 0005 NA 144 142 142 139 K 3.8 4.4 4.9 4.9 CL 112* 110* 108* 108* CO2 23 21* BUN 21* 20 20 22* CREATININE 1.33* 1.27* 1.41* 1.46* GLUCOSE 109* 116* 152* 130* CALCIUM 8.3* 8.2* 8.1* 8.2* MG 4.0* 3.2* -- 2.6* PHOS 3.3 -- -- -- Recent Labs 10/04/23 0414 10/04/23 0649 10/04/23 0802 10/04/23 0909 10/04/23 1004 10/04/23 1055 POCGLU 131* 134* 120* 120* 114* 121* Lab Results Component Value Date HGBA1C 5.4 09/29/2023 Lab Results Component Value Date EFBP 55 09/29/2023 Current Nutrition Therapies: Adult diet Regular Current Oral Intake Average Meal Intake: 76-100% (prior to surgery) Average Supplements Intake: None Ordered Anthropometric Measures: Height: 182.9 cm (6') Current Body Weight: 99.3 kg (218 lb 14.7 oz) (bedscale 10/04) Admission Body Weight: 98.8 kg (217 lb 13 oz) (09/29) Usual Body Weight: 101 kg (222 lb) (06/08/23) % Weight Change (Calculated): -1.4 [place] Body Weight (lbs) (Calculated): 178 lbs [place] Body Weight (Kg) (Calculated): 81 kg % [place] Body Weight (Calculated): 123 % BMI (kg/m2) (Calculated): 29.7 BMI Categories: Overweight (BMI 25.0-29.9) Wt Readings from Last 10 Encounters: 10/04/23 99.3 kg (218 lb 14.7 oz) Nutrition Diagnosis: Increased nutrient needs related to increase demand for energy/nutrients as evidenced by wounds (surgical) Nutrition Interventions: Food and/or Nutrient Delivery: Continue Current Diet, Start Oral Nutrition Supplement Nutrition Education/Counseling: No recommendation at this time Coordination of Nutrition Care: Continue to monitor while (more content not included)...[facility]11-08-2023 NotePHYSICAL THERAPY [facility] Initial Evaluation Name/MRN: Jadon Reyes ([id number]) Evaluation Date: 10/04/2023 Date of : 1955 Admission Date: 09/29/2023 6:59 AM Age: 67 y.o. Room/Bed: T1-110/T1-110 A Discharge Recommendation: Inpatient Rehab and Continue to assess pending progress Equipment Needed: TBD at next level of care Assessment IMPRESSION: Pt admitted to [facility] for CAD and is s/p CABGx3 10/03/2023. Pt performed scooting in the chair with min A and performed sit <> stand with mod A x2. Upon standing pt began feeling lightheaded. Pt stood for ~ 1 minute then requested to sit. Lightheadedness lasted more than 5 minutes and nurse was notified. Blood pressure was 130/77 mmHG at time of lightheadedness and O2 sats were between 91-96%. Will continue to progress as able. Pt displays decreased endurance, balance, and strength thus decreasing overall functional mobility. Continued PT services required to allow pt to return to prior level of function. Recommends discharge to IP Rehab at this time. Will continue to assess. Pt likely to progress to home with assist prn. Diagnosis: CAD s/p CABGx3 10/03/2023 Prognosis: good Performance Deficits /Impairments: Increased Pain, Decreased Functional Mobility, and Decreased Strength Decision Making: Medium Complexity Subjective Pt reported he is in pain and is not feeling well. Pt just received pain med from RN. Pt agreeable to therapy. Pain: 0-10 pain scale: 8/10 Location: sternal incision Past Medical History: Past Medical History: Diagnosis Date Glaucoma Hypertension Past Surgical History: History reviewed. No pertinent surgical history. Admission Diagnosis: Patient Active Problem List Diagnosis Date Noted CAD in [place] artery 09/28/2023 Medical Precautions: No active isolations Proper PPE donned/doffed in accordance with facility standards. Fall Risk: Kahn Fall Risk Score: 35 (Medium Risk) Precautions/Restrictions: Sternal Precautions: Lifting restriction of no more than 10 lbs, undated movement restrictions to keep your move in the tube. Lines/Drains/Airways: Inducer, chest tube, PIV, Forde, Pacer Wires Family/Caregiver Present: none Overall Cognitive Status: WNL Overall Orientation Status: Oriented x4 Vision: wears glasses at all times and and are being used during the eval Hearing: normal Social/Functional History Patient admitted from home. Lives With: Spouse Type of Home: single family home Home Layout: Single Level Home Home Access: Stairs to Enter without Rails (# of stairs: 1) Bathroom Shower/Tub: Toilet: N/A Home Equipment: cane Homemaking Responsibilities: Independent Receives Help From: Significant other Active Alternative Education Teacher: Yes Prior Level of Function ADL Assistance: Independent Ambulation Assistance: Independent Transfer Assistance: Independent Objective Lower Extremity Assessment AROM: Impaired: due to move in tube precautions PROM: Not assessed this session Strength: WFL Bed Mobility: Did not assess at this date because pt in chair at beginning of session Transfers Sit to stand: Mod Assist, x2 Person Assist Stand to sit: Mod Assist, x2 Person Assist Pt required verbal cues to maintain precautions. Educated on rocking method an splinting while standing Pt required increased time to complete and required physical assist to initiate movement Pt lightheaded with stand. Pt requested to sit after ~1 minute of standing. BP was 130/77 mmHG. O2 sat in between 91-96% during activity. Ambulation Did not assess this session. Due to lightheadedness Outcome Measures AM-PAC How much HELP from another person do you currently need Turning from your back to your side while in a flat bed without using bedrails?: A Lot Moving from lying on your back to sitting on the side of a flat bed without using bedrails?: A Lot Moving to and from a bed to a chair (including a wheelchair)?: A Lot Standing up from a chair using your arms (wheelchair or bedside chair)?: A Lot Walking in a hospital room?: A Lot Stair climbing assessed?: No AM-PAC Inpatient Mobility Raw Score (No Stairs) : 10 JH-HLM -HLM Score: Static standing (1 or more minutes) Plan Pt would benefit from skilled acute PT services to address Strengthening, Balance Training, Functional Mobility Training, Endurance Training, Gait Training, Stair Training, and Chest PT . Frequency: 5x/week for 2 weeks Barriers: New weightbearing/ROM restrictions and Decreased endurance Safety/Education Safety Safety Devices in place: call light within reach, left in chair, gait belt, and patient at risk for falls Restraints: No Education Education Given To: patient Education Provided: PT Role, PT Goals, Precautions, Transfer Training, Energy Conservation, and Move in the tube precautions, lifting restriction Education Method: Verbal Barriers to Learning: None Education Outcome: Verbalized Understanding (more content not included)...[facility]11-08-2023 [facility] [place] [facility] Cardiology /Electrophysiology Progress Note HPI / Interval History: Mr. Reyes is s/p CABG x3 (PQJF-FVD-SSF, SVG-PDA, SVG-PL) on 10/03/[address] Beverly. He has past medical history of HTN, HLD, tobacco use. He was originally transferred from [facility] with abnormal stress test. EF 55% This morning, he walked with PT and had some dizziness/ lightheadedness. He denies angina, dyspnea, palpitations, syncope, swelling, bleeding. He is having post operative pain, and complains of pain when taking a deep breath. Assessment/Plan Multivessel CAD s/p CABG x3 (UTFQ-LKP-HCQ, SVG-PDA, SVG-PL) on 10/03/[address] Mayor Aisha Gr. Continue aspirin, atorvastatin, metoprolol, PPI. Pain control per CTS, advance activity. Will need cardiac rehab as outpatient. HTN -Controlled. Continue metoprolol. HLD - Continue atorvastatin 80 mg. Tobacco use - Ongoing cessation advised. Will discuss with Dr. Shelton. Medications: acetaminophen, 1,000 mg, Oral, q8h aspirin, 324 mg, Oral, Daily atorvastatin, 80 mg, Oral, Daily ceFAZolin, 2,000 mg, IntraVENous, q8h chlorhexidine, 15 mL, Mouth/Throat, BID heparin, 5,000 Units, SubCUTAneous, BID latanoprost, 1 drop, Both Eyes, Nightly Lidocaine, 1 patch, Topical, Daily metoprolol tartrate, 25 mg, Oral, BID mupirocin, , Nasal, BID pantoprazole, 40 mg, IntraVENous, Daily polyethylene glycol (PEG) 3350, 17 g, Oral, Daily senna-docusate sodium, 2 tablet, Oral, Nightly sodium chloride 0.9%, 10 mL, IntraVENous, 2 times per day Infusion Medications: insulin regular, 1-50 Units/hr, Last Rate: 1 Units/hr (10/04/23 0805) lactated ringers, 250 mL sodium chloride, 20 mL/hr, Last Rate: 20 mL/hr (10/03/23 1300) Physical Examination: Vitals: 10/04/23 0700 10/04/23 0800 10/04/23 0823 10/04/23 0842 BP: 127/64 127/64 BP Location: Left arm Patient Position: Sitting Pulse: 84 88 82 Resp: 18 Temp: 37.2 ?C (98.9 ?F) TempSrc: Temporal SpO2: 97% 97% Weight: Height: 6' (1.829 m) Intake/Output Summary (Last 24 hours) at 10/04/2023 0853 Last data filed at 10/04/2023 0700 Gross per 24 hour Intake 5269.28 ml Output 4275 ml Net 994.28 ml Wt Readings from Last 3 Encounters: 10/04/23 218 lb 14.7 oz (99.3 kg) Physical Exam Vitals reviewed. Constitutional: General: He is not in acute distress. Appearance: Normal appearance. He is not diaphoretic. Comments: Up in chair HENT: Head: Normocephalic. Mouth/Throat: Pharynx: No oropharyngeal exudate. Eyes: General: Right eye: No discharge. Left eye: No discharge. Extraocular Movements: Extraocular movements intact. Pupils: Pupils are equal, round, and reactive to light. Cardiovascular: Rate and Rhythm: Normal rate and regular rhythm. Pulses: Normal pulses. Heart sounds: Normal heart sounds. No murmur heard. No gallop. Pulmonary: Effort: Pulmonary effort is normal. No respiratory distress. Breath sounds: Normal breath sounds. Chest: Comments: Mid-sternal chest incision without redness or drainage. Chest tube intact with serosanguinous drainage. Abdominal: General: Bowel sounds are decreased. There is no distension. Palpations: Abdomen is soft. Tenderness: There is no abdominal tenderness. Genitourinary: Comments: Forde with yellow urine. Musculoskeletal: General: Normal range of motion. Cervical back: Normal range of motion and neck supple. Right lower leg: No edema. Left lower leg: No edema. Skin: General: Skin is warm and dry. Capillary Refill: Capillary refill takes less than 2 seconds. Neurological: General: No focal deficit present. Mental Status: He is alert and oriented to person, place, and time. Cranial Nerves: No cranial nerve deficit. Psychiatric: Mood and Affect: Mood normal. Laboratory Tests: Recent Labs 10/03/23 0005 10/03/23 1127 10/03/23 1313 10/03/23 1731 10/04/23 0005 NA 138 144 142 142 139 K 4.4 3.8 4.4 4.9 4.9 CL 109* 112* 110* 108* 108* CO2 22 21* 23 23 21* BUN 23* 21* 20 20 22* CREATININE 1.28* 1.33* 1.27* 1.41* 1.46* Recent Labs 10/03/23 0005 10/03/23 1127 10/03/23 1128 10/03/23 1313 10/03/23 1731 10/04/23 0005 WBC 5.5 7.2 -- 9.6 -- 7.0 HGB 13.2 9.5* 9.8 11.5* 10.9 10.2* HCT 39.0* 28.3* -- 34.1* -- 29.5* MCV 91.4 91.2 -- 91.4 -- 90.4 PLT 109* 104* -- 112* -- 114* No results for input(s): CKTOTAL, CKMB, CKMBINDEX, TROPONINI in the last 72 hours. No results for input(s): BNP in the last 72 hours. No results for input(s): TRIG, HDL, LDLCALC, CHOL in the last 72 hours. No results found for: LDLCHOLESTER Lab Results Component Value Date TSH 2.295 09/29/2023 EF BP Date Value Ref Range Status 09/29/2023 55 55 - 100 % Final 09/29/23 TRANSESOPHAGEAL ECHOCARDIOGRAM (CONTRAST/3D PRN) 10/03/2023 3:26 PM (Final) Interpretation Summary Left Ventricle: Left ventricle size is normal. Normal left ventricular systolic function. The EF by (more content not included)...[facility]11-08-2023 NoteCare Management Progress Note Patient remains in [facility]V ICU now s/p CABG x 3 POD # 1. Extubated within window weaned to RA, in NSR on tele, chest tube to water seal, weaned off low dose levo, add BB, bowel regimen, insulin per endocrine and PT/OT evals pending. Patient from home with , ROBERT following for home care. Discharge Milestones and Delays Expected Date/Time: 10/08/[address] discharge order Complete med reconciliation Case mgmt discharge readiness Clinical Stability Diagnsotic Workup Expected Discharge History Expected Date/Time Set By Reviewed At 10/08/2023 Toshia Chery RN 10/04/2023 8:07 AM 10/08/2023 Toshia Chery RN 10/02/2023 10:01 AM 10/05/2023 Jacquelin Warren, HEALTH PROMOTER - STAKEHOLDER MANAGER 09/28/2023 3:56 PM Length of Stay (Days): 5 GMLOS: [address] [place], [place] 1403511-07-2023 NotePatient: Jadon Pelletierughton Procedure Summary Date: 10/03/23 Room / Location: [address] Operating Room Anesthesia Start: 721 Anesthesia Stop: 1242 Procedures: CORONARY ARTERY BYPASS GRAFT WITH TRANSESOPHAGEAL ECHOCARDIOGRAM (Chest) Echocardiography transesophageal real-time Diagnosis: Atherosclerotic heart disease of [place] coronary artery without angina pectoris (Atherosclerotic heart disease of [place] coronary artery without angina pectoris [I25.10]) Surgeons: Kit Beverly MD Responsible Provider: Arvind Leon MD Anesthesia Type: general ASA Status: 4 Anesthesia Type: general Vitals Value Taken Time BP 117/64 10/03/23 1248 Temp 36.4 10/03/23 1248 Pulse 70 10/03/23 1246 Resp 16 10/03/23 1246 SpO2 100 % 10/03/23 1246 Vitals shown include unfiled device data. Anesthesia Post Evaluation Patient location during evaluation: ICU Patient participation: complete - patient cannot participate Level of consciousness: intubated and sedated Pain management: adequate Airway patency: patent Dental Injury: no Cardiovascular status: acceptable and hemodynamically stable Respiratory status: acceptable, ETT, intubated and ventilator Hydration status: acceptable Nausea/Vomiting: controlled No notable events documented. Patient can be discharged once all PACU criteria has been met.[facility] [id number] NotePatient: Jadon Reyes Procedure Summary Date: 10/03/23 Room / Location: [address] Operating Room Anesthesia Start: 721 Anesthesia Stop: 1242 Procedures: CORONARY ARTERY BYPASS GRAFT WITH TRANSESOPHAGEAL ECHOCARDIOGRAM (Chest) Echocardiography transesophageal real-time Diagnosis: Atherosclerotic heart disease of [place] coronary artery without angina pectoris (Atherosclerotic heart disease of [place] coronary artery without angina pectoris [I25.10]) Surgeons: Kit Beverly MD Responsible Provider: Arvind Leon MD Anesthesia Type: general ASA Status: 4 Anesthesia Type: general Vitals Value Taken Time BP 117/64 10/03/23 1247 Temp 36.4 10/03/23 1247 Pulse 70 10/03/23 1245 Resp 14 10/03/23 1245 SpO2 100 % 10/03/23 1245 Vitals shown include unfiled device data. Anesthesia Post Evaluation Patient location during evaluation: ICU Patient participation: complete - patient cannot participate Post-procedure mental status: sedated/intubated. Pain score: 0 Pain management: adequate Multimodal analgesia pain management approach Airway patency: patent Two or more strategies used to mitigate risk of obstructive sleep apnea Cardiovascular status: hemodynamically stable Respiratory status: acceptable, intubated, ventilator and ETT Hydration status: acceptable No notable events documented. MIPS #430 PONV Patient received an inhalational anesthetic (4554F) Patient does not exhibit three or more risk factors for PONV (X0430)) MIPS # 424 Perioperative Temperature Management Anesthesia time was 60 minutes or longer (4255F) Anesthesai administered was General (inhalational or TIVA) or Neuraxial block (X0424) At least one body temperature greater than 95.8F/35.5C achieved within the 30 mins immediately prior to or the 15 minutes immediately following anesthesia end time (G9771) MIPS #477 Multimodal Pain Management Not emergent case Patient was administered multimodal pain management (two or more drugs and/or interventions excluding systemic opioids) in the periopeartive period occurring at some time between 6 hours prior to anesthesia start time until discharged from PACU (G2148) MIPS #404 Anesthesiology Smoking Abstinence The patient is not a current smoker (e.g. cigarette, cigar, pipe, e-cigarette/vaping/marijuana) If no stop here (G9644) I completed my handoff to the receiving clinician during which we: 1. Identified the patient 2. Identified the responsible provider 3. Reviewed the pertinent medical history 4. Discussed the surgical course 5. Reviewed intra-op anesthesia management and issues during anesthesia 6. Set expectations for post-procedure period 7. Allowed opportunity for questions and acknowledgement of understanding.[facility]11-07-2023 Evaluation note* Diagnosis Onset Date Resolution Status History of coronary artery bypass surgery September acute Essential hypertension chron ic Hyperlipidemia [facility] [place] Work Phone: 1(511) 842-802911-07-2023 Evaluation note* Diagnosis Onset Date Resolution Status History of coronary artery bypass surgery September acute Essential hypertension chron ic Hyperlipidemia chronic Atherosclerosis of coronary artery of [place] heart without angina pectoris acute Essential hypertension chron ic Hyperlipidemia [facility] [place] Work Phone: [phone]) 843-865811-07-2023 Evaluation note* Diagnosis Onset Date Resolution Status Admit Date Ascending aorta dilatation acute April 23, 2025 10:28am History of coronary artery bypass surgery October 03, 2023 acute April 23 10:28am Leg weakness acute April 23 10:28am Essential hypertension chronic Ma 2024 10:28am Hyperlipidemia chronic April 23, 2025 10:28am [facility] Work Phone: [phone] 845-193411-07-2023 NoteCentral Venous Line: Date/Time: 10/03/2023 7:55 AM A central venous line was placed in the Procedural for the following indication(s): central venous access and CVP monitoring. Sterility preparation included the following: provider hand hygiene performed prior to central venous catheter insertion, all 5 sterile barriers used (gloves, gown, cap, mask, large sterile drape) during central venous catheter insertion, antiseptic used during central venous catheter insertion and skin prep agent completely dried prior to procedure. Medical reason for not performing maximal sterile barrier technique: no The patient was placed in Trendelenburg position. Right internal jugular vein was prepped. The site was prepped with Chlorhexidine. Size: 8.5 Fr Catheter type: introducer Number of Lumens: single lumen During the procedure, the following specific steps were taken: target vein identified, needle advanced into vein and blood aspirated and guidewire advanced into vein. Procedure performed using ultrasound guidance - Image permanently retained with wire or catheter in vein. Sterile gel and probe cover used in ultrasound-guided central venous catheter insertion. Intravenous verification was obtained by ultrasound. Post insertion care included: all ports aspirated, all ports flushed easily, guidewire removed intact, Biopatch applied, line sutured in place and dressing applied. During the procedure the patient experienced: patient tolerated procedure well with no complications. A non-oximetric, 7.5 (size) Pulmonary Artery Catheter (PAC) was placed through the Introducer CVL in the right internal jugular vein.. The patient experienced the following events during the procedure: no complications. Staffing Performed: HYPERCIL CORE TRANSFORMER ASSEMBLER Resident/HYPERCIL CORE TRANSFORMER ASSEMBLER: Edward Bryant APRN - HYPERCIL CORE TRANSFORMER ASSEMBLER Performed by: Edward Bryant APRN - [facility] Authorized by: Edward Bryant APRN - [facility] [id number] Note Arterial Line: Date/Time: 10/03/2023 7:45 AM An arterial line was placed Procedure performed using ultrasound guidance - Image permanently retained with wire or catheter in vein.in the Procedural for the following indication(s): continuous blood pressure monitoring and blood sampling needed. A 20 gauge (size), 1 and 3/4 inch (length), Arrow (type) catheter was placed, into the Right radial artery, secured by Tegaderm and tape. Events: patient tolerated procedure well with no complications. Staffing Performed: HYPERCIL CORE TRANSFORMER ASSEMBLER Resident/HYPERCIL CORE TRANSFORMER ASSEMBLER: ARCHIE Benito CRNA Performed by: ARCHIE Benito CRNA Authorized by: ARCHIE Benito [facility]RNA[facility] Note Airway Date/Time: 10/03/2023 7:35 AM Urgency: scheduled Airway not difficult General Information and Staff Patient location during procedure: Procedural Resident/HYPERCIL CORE TRANSFORMER ASSEMBLER: ARCHIE Benito CRNA Performed: HYPERCIL CORE TRANSFORMER ASSEMBLER Performed by: ARCHIE Benito CRNA Authorized by: ARCHIE Benito CRNA Indications and Patient Condition Indications for airway management: anesthesia and airway protection Sedation level: Asleep Preoxygenated: yes Patient position: sniffing Mask difficulty assessment: 2 - vent by mask + OA or adjuvant +/- NMBA Final Airway Details Final airway type: endotracheal airway Successful airway: ETT Cuffed: yes Successful intubation technique: direct laryngoscopy Endotracheal tube insertion site: oral Blade: Tess Blade size: #3 ETT size (mm): 8.0 Cormack-Lehane Classification: grade IIa - partial view of glottis Placement verified by: chest auscultation and capnometry Measured from: lips ETT to lips (cm): 24 Number of attempts at approach: [address] [place], [place] [address]11-07-2023 NotePatient: Jadon Reyes Procedure Information Date/Time: 10/03/23 0730 Procedures: CORONARY ARTERY BYPASS GRAFT WITH TRANSESOPHAGEAL ECHOCARDIOGRAM (Chest) Echocardiography transesophageal real-time Location: [address] Operating Room Surgeons: Kit Beverly MD Relevant Problems Cardio (+) CAD in [place] artery Past Medical History: Past Medical History: No date: Glaucoma No date: Hypertension Past Surgical History: No past surgical history on file. Social History: TOBACCO: reports that he has quit smoking. His smoking use included cigars and cigarettes. He has quit using smokeless tobacco. His smokeless tobacco use included chew. ETOH: reports current alcohol use. Social History Substance and Sexual Activity Drug Use Never Family History: Family History Problem Relation Name Age of Onset ? Coronary artery disease Father ? Coronary artery disease Maternal Grandfather ? Heart attack Maternal Grandfather ? Coronary artery disease Paternal Grandfather ? Heart attack Paternal Grandfather Screening: unknown Clinical information reviewed: Tobacco Allergies Med Hx Surg Hx Fam Hx Soc Hx Physical Exam Airway Mallampati: II Neck ROM: full Mouth Open: normalendotracheal tube not in place Cardiovascular Rhythm: regular Dental dentition normal Pulmonary Abdominal Anesthesia Plan patient is NPO appropriate Any family history or previous problems with anesthesia no ASA 4 general Any family history or previous problems with anesthesia no ([place]/art line) The patient is not a current smoker. Anesthetic plan and risks discussed with patient. Use of blood products discussed with who consented to blood products. RADHA Screening Labs: Lab Results Component Value Date WBC 5.5 10/03/2023 HGB 13.2 10/03/2023 HCT 39.0 (L) 10/03/2023 MCV 91.4 10/03/2023 PLT 109 (L) 10/03/2023 Lab Results Component Value Date NA 138 10/03/2023 K 4.4 10/03/2023 CL 109 (H) 10/03/2023 CO2 22 10/03/2023 BUN 23 (H) 10/03/2023 CREATININE 1.28 (H) 10/03/2023 GLUCOSE 110 (H) 10/03/2023 CALCIUM 8.7 10/03/2023 PROT 8.2 09/29/2023 ALKPHOS 68 09/29/2023 AST 37 09/29/2023 ALT 40 09/29/2023 EGFR 61.0 10/03/2023 Transthoracic echocardiogram (TTE) complete with contrast, bubble, strain, and 3D PRN Result Date: 09/29/2023 ? Left?Ventricle: Left ventricle size is normal. Mildly increased wall thickness. Mass index 2D is 108.5 g/m2. Findings consistent with mild concentric hypertrophy. Normal left ventricular systolic function. EF by 2D Simpsons Biplane is 55%. Normal wall motion. ? Right?Ventricle: Right ventricle size is normal. Normal systolic function. ? Aorta: Normal sized sinuses of Valsalva. Mildly dilated ascending aorta. Ao ascending diameter is 3.8 cm. ? No significant valvular abnormalities. 09/29/23 ECG 12-LEAD 09/30/2023 8:45 PM (Final) Impression Sinus bradycardia Inferior infarct, old Electronically Signed On 09-30-2023 20:45:53 EDT by Ap Shelton Signed by: Ap Shelton MD on 09/30/2023 8:45 [facility] 10-02-2023 NoteCare Management Progress Note Patient remains in CTV ICU with MVCAD. Plan CABG tomorrow, requested JONES to follow. Discharge Milestones and Delays Expected Date/Time: 10/08/[address] discharge order Complete med reconciliation Case mgmt discharge readiness Clinical Stability Diagnsotic Workup Expected Discharge History Expected Date/Time Set By Reviewed At 10/08/2023 Toshia Chery RN 10/02/2023 10:01 AM 10/05/2023 Jacquelin Warren APRN - [facility] 09/28/2023 3:56 PM Length of Stay (Days): 3 GMLOS: [address] [place], [place] 1403511-06-2023 NoteCardiothoracic Surgery/CCM Progress Note PATIENT NAME: Jadon Reyes DATE: 10/02/23 HPI: Mr. Jadon Reyes is a 67 year old male patient with a known PMHx that includes HTN, HLD, and smoking. He presented to [facility] ED on 09/27/23 after he was called with results of a stress test he underwent. The stress test was completed earlier in the day on 09/27/23 and was positive for reversible ischemia. On admission in ED, his EKG showed T wave inversions in lead III and aVF, troponin negative. He was started on aspirin, heparin and Cardiology consulted. He had a cardiac catheterization on 09/28/23 which revealed multivessel CAD. He has planned CABG with Dr. Beverly 10/03/23 Interval History: 10/02/23. No acute changes overnight pt is eager to have surgery by anxious. Review of Systems Constitutional: Negative for chills, diaphoresis, fatigue and fever. Respiratory: Negative for cough, shortness of breath and wheezing. Cardiovascular: Negative for chest pain, palpitations and leg swelling. Neurological: Negative for dizziness, syncope and light-headedness. Objective: Carotid Ultrasounds (09/29/23) Interpretation Summary <50% stenosis in the right internal carotid artery. Mild and heterogeneous plaque (proximal) in the right internal carotid artery. <50% stenosis in the left internal carotid artery. Mild and heterogeneous plaque (proximal) in the left internal carotid artery. Normal antegrade flow involving the right vertebral artery. Normal antegrade flow involving the left vertebral artery. Transthoracic Echo (09/29/23) Interpretation Summary Left Ventricle: Left ventricle size is normal. Mildly increased wall thickness. Mass index 2D is 108.5 g/m2. Findings consistent with mild concentric hypertrophy. Normal left ventricular systolic function. EF by 2D Simpsons Biplane is 55%. Normal wall motion. Right Ventricle: Right ventricle size is normal. Normal systolic function. Aorta: Normal sized sinuses of Valsalva. Mildly dilated ascending aorta. Ao ascending diameter is 3.8 cm. No significant valvular abnormalities. Vitals: BP: (!) 143/83, MAP (mmHg): 99, BP Method: Automatic Heart Rate: 58 Resp: 16 Temp: 36.4 ?C (97.5 ?F), Temp Source: Temporal BMI (Calculated): 28.95 BMP: Recent Labs 10/01/23 0006 NA 136 K 4.0 CL 105 CO2 21* BUN 23* CREATININE 1.23 CALCIUM 8.6 CBC: Recent Labs 10/01/23 0006 WBC 4.6 HGB 13.8 HCT 41.2 PLT 109* MCV 91.2 RDW 14.2 INR: No results for input(s): INR in the last 72 hours. Physical Exam Vitals reviewed. Constitutional: General: He is not in acute distress. Appearance: He is not ill-appearing or diaphoretic. Cardiovascular: Rate and Rhythm: Normal rate and regular rhythm. Pulses: Normal pulses. Heart sounds: No murmur heard. Pulmonary: Effort: Pulmonary effort is normal. Breath sounds: No wheezing, rhonchi or rales. Abdominal: General: Bowel sounds are normal. There is no distension. Palpations: Abdomen is soft. Musculoskeletal: General: No swelling. Normal range of motion. Skin: General: Skin is warm and dry. Capillary Refill: Capillary refill takes less than 2 seconds. Neurological: General: No focal deficit present. Mental Status: He is alert and oriented to person, place, and time. Psychiatric: Mood and Affect: Mood normal. Behavior: Behavior normal. Thought Content: Thought content normal. Judgment: Judgment normal. Assessment: Multivessel CAD HTN HLD Tobacco abuse, quit 2 weeks ago Plan: Patient Status: Telemetry - Pre-Op education later this afternoon with family - Pre-op testing reviewed - Consider CT chest GI prophy: PO protonix DVT prophy:TEDs, SCDs, and Lovenox SubQ [facility]11-05-2023 NoteProblem: Daily Care Goal: Daily care needs are met Outcome: Progressing Problem: Pain - Adult Goal: Verbalizes/displays adequate comfort level or baseline comfort level Outcome: Progressing Flowsheets (Taken 10/01/2023 0819) Verbalizes/displays adequate comfort level or baseline comfort level: Encourage patient to monitor pain and [facility] NoteCardiothoracic Surgery/CCM Progress Note PATIENT NAME: Jadon Reyes DATE: 10/01/23 HPI: Mr. Jadon Reyes is a 67 year old male patient with a known PMHx that includes HTN, HLD, and smoking. He presented to [facility] ED on 09/27/23 after he was called with results of a stress test he underwent. The stress test was completed earlier in the day on 09/27/23 and was positive for reversible ischemia. On admission in ED, his EKG showed T wave inversions in lead III and aVF, troponin negative. He was started on aspirin, heparin and Cardiology consulted. He had a cardiac catheterization on 09/28/23 which revealed multivessel CAD. He was transferred to [facility] for Cardiothoracic Surgery to evaluate for surgical revascularization. Interval History: 10/01/23. Afebrile, NSR/SB on tele, BP stable with intermittent hypertensive episodes. No complaints this AM. Independent on unit, chest pain free. Review of Systems Constitutional: Negative for chills, diaphoresis, fatigue and fever. Respiratory: Negative for cough, shortness of breath and wheezing. Cardiovascular: Negative for chest pain, palpitations and leg swelling. Neurological: Negative for dizziness, syncope and light-headedness. Objective: Carotid Ultrasounds (09/29/23) Interpretation Summary <50% stenosis in the right internal carotid artery. Mild and heterogeneous plaque (proximal) in the right internal carotid artery. <50% stenosis in the left internal carotid artery. Mild and heterogeneous plaque (proximal) in the left internal carotid artery. Normal antegrade flow involving the right vertebral artery. Normal antegrade flow involving the left vertebral artery. Transthoracic Echo (09/29/23) Interpretation Summary Left Ventricle: Left ventricle size is normal. Mildly increased wall thickness. Mass index 2D is 108.5 g/m2. Findings consistent with mild concentric hypertrophy. Normal left ventricular systolic function. EF by 2D Simpsons Biplane is 55%. Normal wall motion. Right Ventricle: Right ventricle size is normal. Normal systolic function. Aorta: Normal sized sinuses of Valsalva. Mildly dilated ascending aorta. Ao ascending diameter is 3.8 cm. No significant valvular abnormalities. Vitals: BP: 125/79, MAP (mmHg): 92, BP Method: Automatic Heart Rate: 58 Resp: 16 Temp: 36.7 ?C (98 ?F), Temp Source: Temporal BMI (Calculated): 28.98 BMP: Recent Labs 09/29/23 0703 10/01/23 0006 NA 137 136 K 4.6 4.0 CL 106 105 CO2 21* 21* BUN 21* 23* CREATININE 1.25 1.23 CALCIUM 9.2 8.6 CBC: Recent Labs 09/29/23 0703 10/01/23 0006 WBC 6.2 4.6 HGB 14.7 13.8 HCT 44.1 41.2 PLT 124* 109* MCV 91.1 91.2 RDW 14.1 14.2 INR: No results for input(s): INR in the last 72 hours. Physical Exam Vitals reviewed. Constitutional: General: He is not in acute distress. Appearance: He is not ill-appearing or diaphoretic. Cardiovascular: Rate and Rhythm: Normal rate and regular rhythm. Pulses: Normal pulses. Heart sounds: No murmur heard. Pulmonary: Effort: Pulmonary effort is normal. Breath sounds: No wheezing, rhonchi or rales. Abdominal: General: Bowel sounds are normal. There is no distension. Palpations: Abdomen is soft. Musculoskeletal: General: No swelling. Normal range of motion. Skin: General: Skin is warm and dry. Capillary Refill: Capillary refill takes less than 2 seconds. Neurological: General: No focal deficit present. Mental Status: He is alert and oriented to person, place, and time. Psychiatric: Mood and Affect: Mood normal. Behavior: Behavior normal. Thought Content: Thought content normal. Judgment: Judgment normal. Assessment: Multivessel CAD HTN HLD Tobacco abuse, quit 2 weeks ago Plan: Patient Status: Telemetry Patient discussed both surgery and PCI options yesterday with CT Surgeon and Paper Rewinder Operator. He is agreeable to proceed with CABG. Plan for surgery on Monday with Dr. Beverly. Reviewed completed testing. Continue current medications. -PRN nitroglycerin gtt if patient develops chest pain. Pre-op orders and education will be provided tomorrow (Monday). Encouraged patient to reach out through nursing if questions or concerns arise. GI prophy: PO protonix DVT prophy:TEDs, SCDs, and Lovenox SubQ [facility]11-04-2023 NoteCardiothoracic Surgery/CCM Progress Note PATIENT NAME: Jadon Reyes DATE: 09/30/23 HPI: Mr. Jadon Reyes is a 67 year old male patient with a known PMHx that includes HTN, HLD, and smoking. He presented to [facility] ED on 09/27/23 after he was called with results of a stress test he underwent. The stress test was completed earlier in the day on 09/27/23 and was positive for reversible ischemia. On admission in ED, his EKG showed T wave inversions in lead III and aVF, troponin negative. He was started on aspirin, heparin and Cardiology consulted. He had a cardiac catheterization on 09/28/23 which revealed multivessel CAD. He was transferred to [facility] for Cardiothoracic Surgery to evaluate for surgical revascularization. Interval History: 09/30/23. Afebrile, NSR on tele, BP stable, on RA. Patient asymptomatic, sitting in chair in room. No acute events overnight. No issues. Patient agreeable with surgery, will plan for Monday. Review of Systems Constitutional: Negative for chills, diaphoresis, fatigue and fever. Respiratory: Negative for cough, shortness of breath and wheezing. Cardiovascular: Negative for chest pain, palpitations and leg swelling. Neurological: Negative for dizziness, syncope and light-headedness. Objective: Carotid Ultrasounds (09/29/23) Interpretation Summary <50% stenosis in the right internal carotid artery. Mild and heterogeneous plaque (proximal) in the right internal carotid artery. <50% stenosis in the left internal carotid artery. Mild and heterogeneous plaque (proximal) in the left internal carotid artery. Normal antegrade flow involving the right vertebral artery. Normal antegrade flow involving the left vertebral artery. Transthoracic Echo (09/29/23) Interpretation Summary Left Ventricle: Left ventricle size is normal. Mildly increased wall thickness. Mass index 2D is 108.5 g/m2. Findings consistent with mild concentric hypertrophy. Normal left ventricular systolic function. EF by 2D Simpsons Biplane is 55%. Normal wall motion. Right Ventricle: Right ventricle size is normal. Normal systolic function. Aorta: Normal sized sinuses of Valsalva. Mildly dilated ascending aorta. Ao ascending diameter is 3.8 cm. No significant valvular abnormalities. Vitals: BP: 124/76, MAP (mmHg): 90, BP Method: Automatic Heart Rate: 57 Resp: 16 Temp: (!) 35.8 ?C (96.5 ?F), Temp Source: Temporal BMI (Calculated): 29.42 BMP: Recent Labs 09/29/23 0703 NA 137 K 4.6 CL 106 CO2 21* BUN 21* CREATININE 1.25 CALCIUM 9.2 CBC: Recent Labs 09/29/23 0703 WBC 6.2 HGB 14.7 HCT 44.1 PLT 124* MCV 91.1 RDW 14.1 INR: No results for input(s): INR in the last 72 hours. Physical Exam Vitals reviewed. Constitutional: General: He is not in acute distress. Appearance: He is not ill-appearing or diaphoretic. Cardiovascular: Rate and Rhythm: Normal rate and regular rhythm. Pulses: Normal pulses. Heart sounds: No murmur heard. Pulmonary: Effort: Pulmonary effort is normal. Breath sounds: No wheezing, rhonchi or rales. Abdominal: General: Bowel sounds are normal. There is no distension. Palpations: Abdomen is soft. Musculoskeletal: General: No swelling. Normal range of motion. Skin: General: Skin is warm and dry. Capillary Refill: Capillary refill takes less than 2 seconds. Neurological: General: No focal deficit present. Mental Status: He is alert and oriented to person, place, and time. Psychiatric: Mood and Affect: Mood normal. Behavior: Behavior normal. Thought Content: Thought content normal. Judgment: Judgment normal. Assessment: Multivessel CAD HTN HLD Tobacco abuse, quit 2 weeks ago Plan: Patient Status: Telemetry Patient discussed both surgery and PCI options yesterday with CT Surgeon and Paper Rewinder Operator. Patient leaning towards CABG. He is agreeable to proceed. Plan for surgery on Monday AM with Dr. Beverly. Reviewed completed testing. Continue current medications. -PRN nitroglycerin gtt if patient develops chest pain. Pre-op education will be provided. Pre-op orders to be placed on Monday. GI prophy: PO protonix DVT prophy:TEDs, SCDs, and Lovenox SubQ [facility]11-03-2023 [facility] Group: Cardiothoracic Surgery H&P PATIENT NAME: Jadon Reyes : 1955 (67 y.o.) TODAY'S DATE: 09/29/2023 DATE OF ADMISSION: 09/29/2023 6:59 AM Subjective: CC: Chest pain/pressure HPI: Mr. Jadon Reyes is a 67 year old male patient with a known PMHx that includes HTN, HLD, and smoking. He presented to [facility] ED on 09/27/23 after he was called with results of a stress test he underwent. The stress test was completed earlier in the day on 09/27/23 and was positive for reversible ischemia. On admission in ED, his EKG showed T wave inversions in lead III and aVF, troponin negative. He was started on aspirin, heparin and Cardiology consulted. He had a cardiac catheterization on 09/28/23 which revealed multivessel CAD. He was transferred to [facility] for Cardiothoracic Surgery to evaluate for surgical revascularization. Patient lying in bed, awake and alert. Currently asymptomatic. States he has been having intermittent chest discomfort for a couple months now, most notably while mowing his lawn. States that the discomfort would resolve with rest. 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 Occasional ETOH use, former smoker (quit 2 weeks ago), denies recreational dug abuse. Cardiac Catheterization (09/29/23) Images available in PACS. Per paperwork provided by [facility]: Dominance- Right Left Main- mild luminal irregularities LAD- mid LAD 95% stenosis Diag- proximal 40-50% stenosis Circ- prox circ 40% stenosis OM1- proximal 20-30% stenosis RCA- prox RCA 100% RT PLV- two tandem 80% stenosis Chest Xray(09/29/23) Review of Systems Constitutional: Negative for chills, diaphoresis, fatigue and fever. Respiratory: Negative for cough, shortness of breath and wheezing. Cardiovascular: Negative for chest pain, palpitations and leg swelling. Gastrointestinal: Negative for abdominal distention, abdominal pain, nausea and vomiting. Neurological: Negative for dizziness, syncope and light-headedness. Allergies: Lisinopril Past Medical History: has a past medical history of Glaucoma and Hypertension. Past Surgical History: has no past surgical history on file. Social History: reports that he has quit smoking. His smoking use included cigars and cigarettes. He has quit using smokeless tobacco. His smokeless tobacco use included chew. He reports current alcohol use. He reports that he does not use drugs. Family History: family history includes Coronary artery disease in his father, maternal grandfather, and paternal grandfather; Heart attack in his maternal grandfather and paternal grandfather. Medications: Prior to Admission medications Not on File Objective: Vitals: BP: 136/79, MAP (mmHg): 93, BP Method: Automatic Heart Rate: 74 Resp: 16 Temp: 37.3 ?C (99.1 ?F), Temp Source: Temporal No intake or output data in the 24 hours ending 09/29/23 1121 Physical Exam Vitals reviewed. Constitutional: General: He is not in acute distress. Appearance: He is not ill-appearing or diaphoretic. Cardiovascular: Rate and Rhythm: Normal rate and regular rhythm. Pulses: Normal pulses. Heart sounds: No murmur heard. Pulmonary: Effort: Pulmonary effort is normal. Breath sounds: No wheezing, rhonchi or rales. Abdominal: General: There is no distension. Palpations: Abdomen is soft. Musculoskeletal: Right lower leg: No edema. Left lower leg: No edema. Skin: General: Skin is warm and dry. Capillary Refill: Capillary refill takes less than 2 seconds. Neurological: General: No focal deficit present. Mental Status: He is alert and oriented to person, place, and time. Psychiatric: Mood and Affect: Mood normal. Behavior: Behavior normal. Thought Content: Thought content normal. Judgment: Judgment normal. Diagnostics: Reviewed in EMR Labs: Reviewed in EMR BMP: Recent Labs 09/29/23 0703 NA 137 K 4.6 CL 106 CO2 21* BUN 21* CREATININE 1.25 CALCIUM 9.2 CBC: Recent Labs 09/29/23 0703 WBC 6.2 HGB 14.7 HCT 44.1 PLT 124* MCV 91.1 RDW 14.1 Assessment: Multivessel CAD HTN HLD Tobacco abuse, quit 2 weeks ago Plan: Patient to be evaluated for surgical revascularization. Dr. Beverly at the bedside this AM to discuss possible CABG. -Consult Interventional Cardiology to discuss/educate on possible PCI options with patient. -Echocardiogram ordered. -Pre-op testing: Carotid ultrasounds, bedside spirometry, vein mapping. -Continue aspirin, statin and BB started at [facility]. -PRN hydralazine for SBP>160. -PRN nitroglycerin gtt for chest pain. -DVT prophy. -Lab work and chest xray performed on arrival. -Continue care in CTV-ICU, will tentatively schedule patient for CABG on Monday (10/03/23), pending discussion with Cardiology and testing. Anti-Plt/Anti-coagulation: (if ye (more content not included)...[facility]11-03-2023 History and physical note* Maxim Irwin, ARCHIE - STAKEHOLDER MANAGER - 09/29/2023 9:45 AM EDT Images from the original note were not included. [facility] Group: Cardiothoracic Surgery H&P PATIENT NAME: Jadon Reyes : 1955 (67 y.o.) TODAY'S DATE: 09/29/2023 DATE OF ADMISSION: 09/29/2023 6:59 AM Subjective: CC: Chest pain/pressure HPI: Mr. Jadon Reyes is a 67 year old male patient with a known PMHx that includes HTN, HLD, and smoking. He presented to [facility] ED on 09/27/23 after he was called with results of a stress test he underwent. The stress test was completed earlier in the day on 09/27/23 and was positive for reversibleischemia. On admission in ED, his EKG showed T wave inversions in lead III and aVF, troponin negative. He was started on aspirin, heparin and Cardiology consulted. He had a cardiac catheterization on09/28/23 which revealed multivessel CAD. He was transferred to [facility] for Cardiothoracic Surgery to evaluate for surgical revascularization. Patient lying in bed, awake and alert. Currently asymptomatic. States he has been having intermittent chest discomfort for a couple months now, most notably while mowing his lawn. States that the discomfort would resolve with rest. 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 Occasional ETOH use, former smoker (quit 2 weeks ago), denies recreational dug abuse. Cardiac Catheterization (09/29/23) Images available in PACS. Per paperwork provided by [facility]: Dominance- Right Left Main- mild luminal irregularities LAD- mid LAD 95% stenosis Diag- proximal 40-50% stenosis Circ- prox circ 40% stenosis OM1- proximal 20-30% stenosis RCA- prox RCA 100% RT PLV- two tandem 80% stenosis Chest Xray(09/29/23) Review of Systems Constitutional: Negative for chills, diaphoresis, fatigue and fever. Respiratory: Negative for cough, shortness of breath and wheezing. Cardiovascular: Negative for chest pain, palpitations and leg swelling. Gastrointestinal: Negative for abdominal distention, abdominal pain, nausea and vomiting. Neurological: Negative for dizziness, syncope and light-headedness. Allergies: Lisinopril Past Medical History: has a past medical history of Glaucoma and Hypertension. Past Surgical History: has no past surgical history on file. Social History: reports that he has quit smoking. His smoking use included cigars and cigarettes. He has quit usingsmokeless tobacco. His smokeless tobacco use included chew. He reports current alcohol use. He reports that he does not use drugs. Family History: family history includes Coronary artery disease in his father, maternal grandfather, and paternal grandfather; Heart attack in his maternal grandfather and paternal grandfather. Medications: Prior to Admission medications Not on File Objective: Vitals: BP: 136/79, MAP (mmHg): 93, BP Method: Automatic Heart Rate: 74 Resp: 16 Temp: 37.3 C (99.1 F), Temp Source: Temporal No intake or output data in the 24 hours ending 09/29/23 1121 Physical Exam Vitals reviewed. Constitutional: General: He is not in acute distress. Appearance: He is not ill-appearing or diaphoretic. Cardiovascular: Rate and Rhythm: Normal rate and regular rhythm. Pulses: Normal pulses. Heart sounds: No murmur heard. Pulmonary: Effort: Pulmonary effort is normal. Breath sounds: No wheezing, rhonchi or rales. Abdominal: General: There is no distension. Palpations: Abdomen is soft. Musculoskeletal: Right lower leg: No edema. Left lower leg: No edema. Skin: General: Skin is warm and dry. Capillary Refill: Capillary refill takes less than 2 seconds. Neurological: General: No focal deficit present. Mental Status: He is alert and oriented to person, place, and time. Psychiatric: Mood and Affect: Mood normal. Behavior: Behavior normal. Thought Content: Thought content normal. Judgment: Judgment normal. Diagnostics: Reviewed in EMR Labs: Reviewed in EMR BMP: Recent Labs 09/29/23 0703 NA 137 K 4.6 CL 106 CO2 21* BUN 21* CREATININE 1.25 CALCIUM 9.2 CBC: Recent Labs 09/29/23 0703 WBC 6.2 HGB 14.7 HCT 44.1 PLT 124* MCV 91.1 RDW 14.1 Assessment: Multivessel CAD HTN HLD Tobacco abuse, quit 2 weeks ago Plan: Patient to be evaluated for surgical revascularization. Dr. Beverly at the bedside this AM to discuss possible CABG. -Consult Interventional Cardiology to discuss/educate on possible PCI options with patient. -Echocardiogram ordered. -Pre-op testing: Carotid ultrasounds, bedside spirometry, vein mapping. -Continue aspirin, statin and BB started at [facility]. -PRN hydralazine for SBP>160. -PRN nitroglycerin gtt for chest pain. -DVT prophy. -Lab work and chest xray performed on arrival. -Continue care in CTV-ICU, will tentatively schedule patient for CABG on Monday (10/03/23), pending discussion with Cardiology and testing. Anti-Plt/Anti-coagulation: (if yes date/time last dose if known) [] - PLAVIX: [] - BRILINTA: [] - NOAC: [] - COUMADIN: [x] - Not on any of the above medications Home meds: Aspirin 81mg daily Latanoprost 0.005% eye drops at bedtime Losartan-hydrochlorothiazide 100mg-12.5mg daily Multivitamin daily [place] 9-whe-wbj-fish oil capsule daily STS Score: Testing not complete at time of calculation. Personally Reviewed: [x]Epic notes [x]Radiology studies [x]Labs [x]EKG []Other documented in this [facility]11-02-2023 Discharge summary Author Catrina Barney [facility] September 28, 2023 3:19pm Note Date/Time September 28, 2023 3 :18pm [facility] Medical Records Department [address] [place] [address] Discharge Summary 09/28/23 1508 MR#: [id number] Acct: [id number] Name: JADON REYES Rep #:[id number] : 1955 67 From: Catrina Merino MD PCP: Dr. Juan Sousa MD Status:ADM I N Location: [place] [address] Providers Date of Admission: 09/27/23 Date of Discharge: 09/28/23 Primary Care Physician: Dr. Juan Sousa MD Consultations 09/27/23 15:43 Consult: Cardiology Routine Consulting Provider: Tapan Nicolas Reason for Consult: unstable angina EMERGENT Consult: No MD Notified: Yes Date Notified: 09/27/23 Time Notified: 14:52 Method of Notification: Verbal Reason For Visit: STEMI Diagnosis Discharge Diagnosis (1) Unstable angina: Status: Acute Code(s): I20.0 - Unstable angina Plan #CAD * Was borderline on account of abnormal stress test and had cardiac cath today which showed severe triple vessel disease * on aspirin, beta edinson and statin * to resume heparin drip 2 hours after right radial access hemostasis Medications at Discharge Home Medications clonidine HCl 0.2 mg tablet 0.2 mg PO Q8H PRN SBP>175 #15 tabs 06/14/20 tramadol 50 mg tablet 50 mg PO Q4H PRN PRN pain #15 tabs 06/14/20 aspirin 81 mg capsule 81 mg PO DAILY heart health 09/27/23 latanoprost 0.005 % eye drops 1 drp ophthalmic (eye) QHS glaucoma 09/27/23 losartan 100 mg-hydrochlorothiazide 12.5 mg tablet 1 tab PO DAILY 09/27/23 multivitamin (Daily Multi-Vitamin tablet) 1 tab PO DAILY supplement 09/27/23 omega 2-giv-gas-fish oil 1,200 mg (144 mg-216 mg) capsule (Fish Oil) 1 cap PO DAILY supplement 09/27/23 Hospital Course Operations None Procedures Cardiac catheterization Summary of Care Provided Minutes Spent on Discharge: 45 Hospital Course: Patient is a 67-year-old male with a past medical history as outlined was admitted through the ED on 09/27/2023 after he was called back for an abnormal stress test. He had had an outpatient stress test on 09/27/2023 and was subsequently found to be positive for reversible ischemia so he was called to come back to the ED. He had been having chest pain for several months. He did not describe it as pain per se but described more as a tightness and heaviness in his chest which worsened with exertion especially when he was mowing his lawn. He also had associated intermittent shortness of breath. He had been seen in the ED on September 05, 2023 with the symptoms and sent home. He saw his PCP who ordered a stress test which was done on outpatient basis and found to beabnormal. On admission in the ED, EKG showed T wave inversions in lead III and aVF. Chest x-ray showed no acute cardiopulmonary process. Troponins were negative. Cardiology was consulted. He was placed on heparin drip and admittedto be managed for unstable angina. He was also placed on aspirin and Lipitor aswell as beta-edinson. Cardiology saw patient and he had cardiac cath on 09/28/2023 which showed 100% stenosis of the proximal RCA with 40% stenosis of the proximal circumflex artery and 95% stenosis of the mid LAD as well as 40 to 50% stenosis of the proximal diagonal artery. Decision was made to transfer patient to tertiary center for evaluation for CABG. He was accepted by Dr. Kit Beverly (CT surgery) at [facility] and was transferred to [facility] on 09/28/2023. Patient seen and examined prior to discharge. His was by his bedside. He had no complaints and he had an uneventful night. Review of systems otherwise negative. Plan is for transfer to [facility]. Physical Exam Const alert, oriented x3 and no apparent distress General Appearance: cooperative and comfortable Orientation / Consciousness: awake, oriented to person, oriented to place and oriented to time Exam Limitations: no limitations HEENT normocephalic, head/scalp atraumatic, hearing grossly normal bilaterally, moist oral mucous membranes and oropharynx normal Mouth: oral and palatal mucosa normal Eyes PERRL, EOMs intact bilaterally and conjunctivae normal Neck no lymphadenopathy and supple Resp normal respiratory effort, no retractions, no use of accessory muscles and clearto auscultation bilaterally Cardio regular rate, regular rhythm, S1 normal heart sound, S2 normal heart sound and no murmurs GI normal to inspection, nondistended, normoactive bowel sounds, soft to palpation,non-tender and non-distended Extremity normal to inspection, full ROM and no clubbing, cyanosis or edema Skin no rashes or lesions noted and no wounds Neuro oriented x3, CN's II-XII intact bilaterally, moves all extremities, no focal motor deficits and no sensory deficits noted Motor Exam: strength 5/5 throughout Psych affect normal Weight / BMI Weight Weight: 219 lb Body Mass Index (BMI) 29.7 ABG / Lab / Microbiology Data 09/27/23 13:55 09/28/23 04:05 Laboratory: Laboratory Results - last 24 hr 09/27/23 16:17: Troponin I High Sens 18 09/27/23 20:30: APTT 69.8 H 09/28/23 04:05: APTT 56.4 H, Sodium 139, Potassium 4.0, Chloride 111 H, Carbon Dioxide 24.0, Anion Gap 4 L, BUN 21 H, Creatinine 1.28, Estim Creat Clear Calc 60.63, Est GFR (MDRD) Af Amer 72, Est GFR (MDRD) Non-Af 59 L, BUN/Creatinine Ratio 16.4, Glucose 122 H, Calcium 8.4 L 09/28/23 10:06: APTT 50.2 H D/C Instructions Discharge Diet: Low fat / Low cholesterol Discharge Activity: Return to Normal Activity Meaningful Use Info Meaningful Use Diagnoses (Choose all that apply): None applicable Discharge Plan Admission Admit Date/Time: 09/27/23 14:30 Attending Provider: Catrina Merino Primary Care Provider: Juan Sousa Consulting Providers: Tapan Nicolas; Edward Smith Discharge Orders/Prescriptions Prescriptions: No Action tramadol 50 MG tablet 50 mg PO Q4H PRN PRN (Reason: pain) Qty: 15 0RF clonidine HCl 0.2 MG tablet 0.2 mg PO Q8H PRN (Reason: SBP>175) Qty: 15 0RF losartan-hydrochlorothiazide 100-12.5 mg tablet 1 tab PO DAILY latanoprost 0.005 % drops 1 drp ophthalmic (eye) QHS multivitamin [Daily Multi-Vitamin] Tablet 1 tab PO DAILY aspirin 81 mg capsule 81 mg PO DAILY omega 4-ngj-mfs-fish oil [Fish Oil] 1,200 (144-216) mg capsule 1 cap PO DAILY Referrals / Follow Up: Juan Sousa MD [Primary Care Provider] - Disposition Disposition (needs filled in before D/C Order can be placed): Acute Care Hospital Charges/Coding Visit Charges Inpatient E&M: 48387 Disch Hosp >30min 09/28/23 1519 <Electronically signed by Catrina Merino MD> Cosigner Signature (if applicable): CC: Dr. Catrina Merino MD; Dr. Juan Sousa MD~ Signed [facility] Work Phone: 1(288) 365-113311-02-2023 Consult note Author Tapan Avilezlani [facility] September 28, 2023 12:38pm Note Date/Time September 28, 2023 1 2:18pm [facility] Medical Records Department [address] [place] [address] Consultation - Cardiology 09/28/23 1215 MR#: [id number] Acct: [id number] Name: JADON REYES Rep #:[id number] : 1955 67 From: Tapan cesar MD PCP: Dr. Juan Sousa MD Status:ADM I N Location: [place] [address] Assessment & Plan Assessment/Plan (1) Unstable angina: PLAN: Coronary angiography revealed disease as described in the HPI. [facility]being [facility]G. Continue aspirin, beta-edinson, statin. 2 hours after right radial access site hemostasis, heparin canbe restarted. HPI Consult Data Date of Consult: 09/28/23 HPI Narrative Reason for Consultation: CP, abnormal stress test HPI Narrative: JADON REYES, is a 67 M who presents after a significantly abnormal stress test. He underwent coronary angiography which revealed significant stenoses in the LAD and an occluded large dominant RCA that is predominantly supplied by collaterals from the LAD. There are also bridging collaterals to the distal RCA. Patient is currently asymptomatic. He is being transferred to a tertiary facility for heart team approach to revascularization and possible CABG. PFSH Medical History Smoker Home Medications clonidine HCl 0.2 mg tablet 0.2 mg PO Q8H PRN SBP>175 #15 tabs 06/14/20 [Rx Last Taken Unknown] tramadol 50 mg tablet 50 mg PO Q4H PRN PRN pain #15 tabs 06/14/20 [Rx Last Taken Unknown] aspirin 81 mg capsule 81 mg PO DAILY heart [facility] 09/27/23 [History Last Taken 09/27/23] latanoprost 0.005 % eye drops 1 drp ophthalmic (eye) QHS glaucoma 09/27/23 [History Last Taken 09/26/23] losartan 100 mg-hydrochlorothiazide 12.5 mg tablet 1 tab PO DAILY 09/27/23 [History Last Taken 09/27/23] multivitamin (Daily Multi-Vitamin tablet) 1 tab PO DAILY supplement 09/27/23 [History Last Taken 09/27/23] omega 4-wnz-czo-fish oil 1,200 mg (144 mg-216 mg) capsule (Fish Oil) 1 cap PO DAILY supplement 09/27/23 [History Last Taken 09/27/23] Allergy/AdvReac Type Severity Reaction Status Date / Time lisinopril Allergy PT UNSURE Verified 09/05/23 23:48 OF REACTION Social History (Updated 09/27/23 @ 14:[address] Toney Hoang MD) household members: spouse Smoking Status: Current every day smoker tobacco type: cigarettes and cigars substance use type: does not use Physical Exam Const alert and oriented x3 HEENT normocephalic Eyes no scleral icterus Resp normal respiratory effort Cardio regular rate Psych mental status grossly normal Risk Stratification Risk Stratification Applicable: No Charges/Coding Visit Charges Inpatient E&M: 26645 Init Hosp L2 Objective Data Vital Signs: Vital Signs Temp Pulse Resp BP Pulse Ox O2 Del Method 97.8 F 57 L 16 139/74 H 96 Room Air 09/28/23 11:40 09/28/23 11:53 09/28/23 11:53 09/28/23 11:53 09/28/23 11:53 09/28/23 11:53 Oxygen Delivery Method Room Air Weight: 219 lb Body Mass Index (BMI) 29.7 Intake & Output: Intake and Output for Last 24 Hours 09/26/23 09/27/23 09/28/23 23:59 23:59 23:59 Intake Total 627 / 1377 2077.95 / 2077.95 Balance 627 / 1377 2077.95 / 2077.95 Lab / Micro Data 09/27/23 13:55 09/28/23 04:05 Labs: Laboratory Results - last 24 hr 09/27/23 13:55: WBC 7.6, RBC 5.06, Hgb 15.3, Hct 46.8, MCV 92.5, MCH 30.2, MCHC 32.7, RDW Std Deviation 46.8 H, RDW Coeff of Kushal 13.7, Plt Count 162, MPV 10.5, Immature Gran % (Auto) 0.300, Neut % (Auto) 56.6, Lymph % (Auto) 32.1, [place] % (Auto) 7.7, Eos % (Auto) 3.0, Baso % (Auto) 0.3, Absolute Neuts (auto) 4.3, Absolute Lymphs (auto) 2.43, Nucleated RBC % 0, PT 14.1, INR 1.1, APTT 31.2, Sodium 141, Potassium 4.1, Chloride 106, Carbon Dioxide 30.0, Anion Gap 5, BUN 20 H, Creatinine 1.52 H, Estim Creat Clear Calc 51.05, Est GFR (MDRD) Af Amer 59L, Est GFR (MDRD) Non-Af 49 L, BUN/Creatinine Ratio 13.2, Glucose 114 H, Calcium9.1, Troponin I High Sens 20 09/27/23 16:17: Troponin I High Sens 18 09/27/23 20:30: APTT 69.8 H 09/28/23 04:05: APTT 56.4 H, Sodium 139, Potassium 4.0, Chloride 111 H, Carbon Dioxide 24.0, Anion Gap 4 L, BUN 21 H, Creatinine 1.28, Estim Creat Clear Calc 60.63, Est GFR (MDRD) Af Amer 72, Est GFR (MDRD) Non-Af 59 L, BUN/Creatinine Ratio 16.4, Glucose 122 H, Calcium 8.4 L 09/28/23 10:06: APTT 50.2 H Rhythm Strip Rhythm Strip: Sinus Rhythm Rate: 65 Ectopy: None Cardiology Labs/Tests 09/27/23 13:55: WBC 7.6, RBC 5.06, Hgb 15.3, Hct 46.8, MCV 92.5, MCH 30.2, MCHC 32.7, Plt Count 162, MPV 10.5, Immature Gran % (Auto) 0.300, Neut % (Auto) 56.6,Lymph % (Auto) 32.1, [place] % (Auto) 7.7, Eos % (Auto) 3.0, Baso % (Auto) 0.3, Absolute Neuts (auto) 4.3, Nucleated RBC % 0, PT 14.1, INR 1.1, APTT 31.2, Sodium 141, Potassium 4.1, Chloride 106, Carbon Dioxide 30.0, Anion Gap 5, BUN 20 H, Creatinine 1.52 H, Est GFR (MDRD) Af Amer 59 L, Est GFR (MDRD) Non-Af 49 L, BUN/Creatinine Ratio 13.2, Glucose 114 H, Calcium 9.1 09/27/23 20:30: APTT 69.8 H 09/28/23 04:05: APTT 56.4 H, Sodium 139, Potassium 4.0, Chloride 111 H, Carbon Dioxide 24.0, Anion Gap 4 L, BUN 21 H, Creatinine 1.28, Est GFR (MDRD) Af Amer 72, Est GFR (MDRD) Non-Af 59 L, BUN/Creatinine Ratio 16.4, Glucose 122 H, Calcium 8.4 L 09/28/23 10:06: APTT 50.2 H Rhythm: EKG: ECHO: Stress Test: Cardiac Cath: PCI: CT Surgery: Holter monitor: EPS: PPM: CXR: Chest CT Scan: Radiography Diagnostic Testing: Radiology Impression Chest X-Ray 09/27/23 14:04 IMPRESSION: Mild increased linear markings at the left lung base suggestive of atelectasis. Electronically Signed: Amado Wright MD at 14:32 EDT Reading Location ID and State: [address] [place] [address] , Service support , 09/28/23 1230 <Electronically signed by Tapan Nicolas MD> Cosigner Signature (if applicable): CC: Dr. Edward Smith DO; Dr. Tapan Nicolas MD; Dr. Juan Sousa MD~ Signed [facility] Work Phone: 1(961) 370-402611-01-2023 History and physical note Author [facility] September 27, 2023 4:07pm Note Date/Time September 27, 2023 3 :50pm [facility] Medical Records Department [address] [place] [address] H&P Exam - Hospitalist 09/27/23 1546 MR#: [id number] Acct: [id number] Name: JADON REYES Rep #:[id number] : 1955 67 From: Edward Smith DO PCP: Dr. Juan Sousa MD Status:ADM I N Location: [place] [address] HPI - General General Date of Admission: 09/27/23 Date of Service: 09/27/23 Chief Complaint: Abnormal cardiac stress test, chest pain HPI Narrative JADON REYES, is a 67 M who presents to the emergency room at [facility], he underwent a stress test today that was positive for reversible ischemia, he was asked to come back to the ER for evaluation. Patient has been having episodic upper chest pain over the last several months, he describes this as a pressure discomfort, he also gets short of breath at times. He was seen in the emergency room September 05, 2023 and evaluated and sent home to follow-up with his PCP, his PCP ordered an outpatient stress test which was performed today and was abnormal, the patient had already left the hospital he was called back for evaluation. Evaluation in the ER included an EKG which showed T wave inversions in 3 and aVF, these were present on a previous EKG on September 05, 2023. Chest x-ray was negative except for markings at the left lung base suggestive of atelectasis, patient CBC was unremarkable, chemistry panel was abnormal for creatinine 1.52 and a BUN of 20 Cardiology was contacted, they advised placing the patient on a heparin drip andadmitting to the hospital for a cardiac catheterization tomorrow. Patient will be admitted to PCU, heparin drip will be continued, he was placed on a beta- edinson, aspirin, and Lipitor. PFSH Medical History Smoker Home Medications clonidine HCl 0.2 mg tablet 0.2 mg PO Q8H PRN SBP>175 #15 tabs 06/14/20 [Rx Last Taken Unknown] tramadol 50 mg tablet 50 mg PO Q4H PRN PRN pain #15 tabs 06/14/20 [Rx Last Taken Unknown] losartan 100 mg-hydrochlorothiazide 12.5 mg tablet 1 tab PO DAILY 09/27/23 [History Last Taken 09/27/23] Allergy/AdvReac Type Severity Reaction Status Date / Time lisinopril Allergy PT UNSURE Verified 09/05/23 23:48 OF REACTION Social History (Updated 09/27/23 @ 14:[address] Toney Hoang MD) household members: spouse Smoking Status: Current every day smoker tobacco type: cigarettes and cigars substance use type: does not use ROS Constitutional Constitutional: Denies anorexia, change in weight, chills, fatigue, fever(s), night sweats or weakness Eyes Eyes: Denies blurry vision, change in vision, discharge from eye(s) or eye pain Cardiovascular Cardiovascular: Reports chest pain; Denies claudication, edema or palpitations Respiratory/Chest Respiratory/Chest: Reports dyspnea; Denies cough, hemoptysis, shortness of breath at rest or shortness of breath with exertion Gastrointestinal Gastrointestinal: Denies abdominal pain, constipation, diarrhea, hematemesis, hematochezia, melena, nausea or vomiting Genitourinary Genitourinary: Denies dysuria, hematuria, urinary frequency, urinary hesitancy, urinary incontinence or urinary urgency Musculoskeletal Musculoskeletal: Denies back pain, joint pain, joint stiffness, joint swelling, myalgias or neck pain Neurologic Neurologic: Denies abnormal gait, abnormal speech, dizziness, focal weakness, headache(s), loss of vision, numbness, other visual disturbances, paresthesias, syncope or tingling Psychiatric Psychiatric: Denies anxiety, cognitive impairment, depression, irritability, mood swings or suicidal ideation Endocrine Endocrinology: Denies change in body appearance, cold intolerance, excessive sweating, heat intolerance, polydipsia or polyuria Hematologic/Lymphatic Hematologic/Lymphatic: Denies none, anemia, easy bleeding, easy bruising or lymphadenopathy Allergic/Immunologic Allergic/Immunologic: Denies rhinitis, urticaria, eczemia or asthma Vital Signs Vital Signs Vital Signs: 09/27/23 13:53 09/27/23 13:57 09/27/23 14:01 Temperature 97.5 F L Temperature Source Temporal Pulse Rate 65 Respiratory Rate 20 H Respiratory Effort Normal Non-Labored Blood Pressure 160/102 H Blood Pressure Mean 121 Pulse Ox 97 97 Oxygen Delivery Method Room Air Room Air Weight Weight: 101.4 kg Body Mass Index (BMI) 30.3 Physical Exam Const alert, oriented x3, no apparent distress, average body habitus and healthy appearing General Appearance: cooperative, well kempt and well developed Orientation / Consciousness: awake, oriented to person, oriented to place and oriented to time HEENT normocephalic, head/scalp atraumatic, hearing grossly normal bilaterally and moist oral mucous membranes Eyes PERRL, EOMs intact bilaterally and conjunctivae normal Neck supple, no JVD, thyroid normal and no carotid bruits General: trachea midline Resp normal respiratory effort, no retractions, no use of accessory muscles and clearto auscultation bilaterally Auscultation: Negative for rales, rhonchi or wheezes Cardio regular rate, regular rhythm, S1 normal heart sound, S2 normal heart sound, no murmurs, no rub and no gallops GI normal to inspection, nondistended, normoactive bowel sounds, soft to palpation,non-tender and non-distended Extremity no clubbing, cyanosis or edema Skin no rashes or lesions noted General Skin Exam: no breakdown Neuro oriented x3, CN's II-XII intact bilaterally, moves all extremities, no focal motor deficits and no sensory deficits noted Sensorium / Orientation: awake and alert Speech: speech normal Psych affect normal Results Lab / Micro Data 09/27/23 13:55 09/27/23 13:55 Labs: Laboratory Results - last 24 hr 09/27/23 13:55: WBC 7.6, RBC 5.06, Hgb 15.3, Hct 46.8, MCV 92.5, MCH 30.2, MCHC 32.7, RDW Std Deviation 46.8 H, RDW Coeff of Kushal 13.7, Plt Count 162, MPV 10.5, Immature Gran % (Auto) 0.300, Neut % (Auto) 56.6, Lymph % (Auto) 32.1, [place] % (Auto) 7.7, Eos % (Auto) 3.0, Baso % (Auto) 0.3, Absolute Neuts (auto) 4.3, Absolute Lymphs (auto) 2.43, Nucleated RBC % 0, PT 14.1, INR 1.1, APTT 31.2, Sodium 141, Potassium 4.1, Chloride 106, Carbon Dioxide 30.0, Anion Gap 5, BUN 20 H, Creatinine 1.52 H, Estim Creat Clear Calc 51.05, Est GFR (MDRD) Af Amer 59L, Est GFR (MDRD) Non-Af 49 L, BUN/Creatinine Ratio 13.2, Glucose 114 H, Calcium9.1, Troponin I High Sens 20 Rhythm Strip Rhythm Strip: Sinus Rhythm Rate: 65 Ectopy: None Radiology Impression Chest X-Ray 09/27/23 14:04 IMPRESSION: Mild increased linear markings at the left lung base suggestive of atelectasis. Electronically Signed: Amado Wright MD at 14:32 EDT , Assessment & Plan Assessment/Plan (1) Unstable angina: PLAN: Plan 1. Unstable angina-patient will be admitted to PCU, he will remain on a heparindrip, again he will be placed on a beta-edinson, aspirin, and a statin, he will be seen in consultation by cardiology and hopefully undergo catheterization tomorrow. #2 chronic kidney disease stage IIIa-etiology unclear, possibly secondary to hypertension-patient has had an elevated creatinine for quite some time, he doestake hypertensive medications. I have elected to place the patient on some IV fluid overnight and repeat his BMP tomorrow. #3 essential hypertension-patient will remain on his current medication, I have added a beta-edinson and hopefully this will provide some control of his blood pressure Total clinical time spent by myself addressing the patient's medical issues, reviewing all of his data, and collaborating with patient's care team: 55 min Charges/Coding Visit Charges Inpatient E&M: 90421 Init Hosp L2 09/27/23 1607 <Electronically signed by Edward Smith DO> Cosigner Signature (if applicable): CC: Dr. Edward Smith DO; Dr. Juan Sousa MD~ Signed [facility] Work Phone: 1(734) 322-952011-01-2023 Discharge summary Author Toney Hoang [facility] September 27, 2023 2:16pm Note Date/Time September 27, 2023 2 :06pm [facility] Medical Records Department [address] [place] [address] Emergency Department Summary 09/27/23 MR#: [id number] Acct: [id number] Name: JADON REYES Rep #:[id number] : 1955 67 From: Toney Hoang MD PCP: Dr. Juan Sousa MD Status:PRE E R Location: ED HPI History of Present Illness Chief Complaint: Chest Pain Detail of Chief Complaint: Chest comfort and dyspnea with activity Informant: patient, spouse/S.O. 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 Nicolas) Onset/Context/Timing Onset: Weeks Activity at onset: sudden and exertion Timing: Intermittent Quality: Positive for Pressure Location: Substernal Current Severity: Gone Maximum Severity: Moderate Worsened By: Exertion Relieved By: Rest Associated Symptoms: Positive for Dyspnea; Negative for Nausea, Vomiting, Diaphoresis, Cough, Fever, Lightheadedness or Acid Reflux Narrative Narrative: Patient is a 67-year-old male who is a smoker. Does have history of hypertension and hyper triglyceridemia. He had a outpatient stress test. The stress test revealed inducible ischemic changes in the inferior leads. There was ST elevation per Dr. Nicolas. He contact the patient return to the emergency department since he left prior to the stress test being read. Presently patient denies shortness of breath or dyspnea. He states has been going on for weeks. He was seen on September 06. His troponins were negative. He predominately had dyspnea as his symptom. There is a strong family history cardiac disease. He states he will quit smoking today. He denies leg pain, swelling discoloration. He has history of VTE. Prior Similar Symptoms: Yes Recent Illness/Hospitalization: Yes CVD Risk Factors: Positive for Hypertension, Hypercholesterolemia, Family History 1' </=55 and Smoking; Negative for Diabetes PE Risk Factors: Negative for Recent Travel/Surgery, Recent Immobilization, Prior DVT or PE, Cancer or OCP + Smoking + >/=35 TAD Risk Factors: Positive for Hypertension; Negative for Marfan's Syndrome or Family History PFSH PFSH Medical History Smoker Home Medications clonidine HCl 0.2 mg tablet 0.2 mg PO Q8H PRN SBP>175 #15 tabs 06/14/20 [Rx Last Taken Unknown] tramadol 50 mg tablet 50 mg PO Q4H PRN PRN pain #15 tabs 06/14/20 [Rx Last Taken Unknown] losartan 100 mg-hydrochlorothiazide 12.5 mg tablet 1 tab PO DAILY 09/27/23 [History Last Taken 09/27/23] Allergy/AdvReac Type Severity Reaction Status Date / Time lisinopril Allergy PT UNSURE Verified 09/05/23 23:48 OF REACTION Social History (Updated 09/27/23 @ 14:[address] Toney Hoang MD) household members: spouse Smoking Status: Current every day smoker tobacco type: cigarettes and cigars substance use type: does not use ROS ROS ED Constitutional Constitutional ED: Denies chills, fever(s) or subjective Eyes Eyes: Reports none ENT ENT ED: Denies ear pain or rhinorrhea Cardiovascular Cardiovascular: Reports as per HPI; Denies orthopnea or paroxysmal nocturnal dyspnea Respiratory/Chest Respiratory/Chest: Reports dyspnea and dyspnea on exertion; Denies cough, orthopnea or paroxysmal nocturnal dyspnea Gastrointestinal Gastrointestinal: Denies abdominal pain, nausea or vomiting Genitourinary Genitourinary ED: Denies dysuria, hematuria or urinary frequency Musculoskeletal Musculoskeletal: Denies arthralgias or myalgias Integumentary Denies rash Neurologic Neurologic: Denies headache(s), paresthesias or weakness Hematologic/Lymphatic Hematologic/Lymphatic: Denies easy bleeding or easy bruising EXAM Physical Exam Const Vital Signs: 09/27/23 13:53 09/27/23 13:57 Temperature 97.5 F L Temperature Source Temporal Pulse Rate 65 Respiratory Rate 20 H Respiratory Effort Normal Non-Labored Blood Pressure 160/102 H Blood Pressure Mean 121 Pulse Ox 97 Oxygen Delivery Method Room Air Positive well nourished and well developed General Appearance ED: well developed and NAD HEENT Reports TM's clear and moist mucous membranes normocephalic Tympanic Membrane ED: Yes TM's clear Eyes PERRL and EOMs intact bilaterally General Eye ED: Negative for pale conjunctiva or scleral icterus Neck no lymphadenopathy, supple and no JVD Chest Wall inspection of chest normal and palpation of chest normal Resp normal respiratory effort and clear to auscultation bilaterally Cardio regular rate, regular rhythm, S1 normal heart sound, S2 normal heart sound and no murmurs Peripheral Pulses: pulses 2+ throughout GI normal to inspection, nondistended, normoactive bowel sounds, soft to palpation,non-tender, non-distended and no masses; Negative for hepatosplenomegaly Back/Spine no CVA tenderness and no thoracic nor lumbar tenderness Extremity normal to inspection Extremity Narrative: Patient does have hair on his toes. General Extremety ED: Negative for edema, pulses abnormal or tenderness General Extremity: Negative for edema or pulses abnormal Neuro oriented x3, CN's II-XII intact bilaterally, no sensory deficits noted and gait normal Sensorium / Orientation: awake and alert Motor Exam: strength 5/5 throughout Psych mental status grossly normal Skin no rashes or lesions noted and no wounds Heart Score History: Highly Suspicious ECG: Nonspecific Repolarization Age: >/= 65 years Risk Factors: >/= 3 Risk Factors or History of CAD Score: 7 MDM MDM MDM Narrative Medical decision making narrative: Patient has dyspnea with exertion and discomfort. His symptoms resolved with rest. He had an outpatient stress test today which revealed revealed reducible ischemic changes inferior leads. He did have ST elevation. Discussed with cardiology prior to arrival. Plan is aspirin, heparin admit and cardiac catheterization in the morning. Rhythm Strip Rhythm Strip: Sinus Rhythm Rate: 65 Ectopy: None EKG Initial EKG: Attestation: I personally reviewed and interpreted this EKG as follows: Interpretation: Sinus Rhythm (Normal sinus rhythm rate of 65. There is STchanges in the inferior leads that coincides with the abnormal stress test.) Management Discussion w/another healthcare provider: Hospitalist (With hospitalist who was made aware of plan per cardiology.) and Truck Repair Supervisor (Paper Rewinder Operator as documented in the HPI narrative) Critical Care Time Critical Care Time: Yes Critical care time (excluding procedures): 30-74 minutes (15 minutes), Includingtime spent: (History, physical, documentation, discussion with hospitalist and wire rope fabrication supervisor), Discussing w/Patient &/or Family/Deckhand Tuna Boat, Discussing w/Consultants and Arranging Admission or Transfer Discharge Plan Triage Chief Complaint: Chest Pain ED Provider: Toney Hoang Dx/Rx/DC Orders Clinical Impression: High triglycerides, ACS (acute coronary syndrome), Tobacco use, Hypertension Prescriptions: No Action tramadol 50 MG tablet 50 mg PO Q4H PRN PRN (Reason: pain) Qty: 15 0RF clonidine HCl 0.2 MG tablet 0.2 mg PO Q8H PRN (Reason: SBP>175) Qty: 15 0RF losartan-hydrochlorothiazide 100-12.5 mg tablet 1 tab PO DAILY Primary Care Provider: Juan Sousa Referrals: Juan Sousa MD [Primary Care Provider] - Disposition Disposition: Acute Care Hospital [facility] What to do if you have Problems For any increased pain, shortness of breath, bleeding, nausea or vomiting, chestpain, or any unexpected problems, contact your Primary Care Provider. Call [facility] ([phone]) or report to the closest Emergency Room. Call 911 if necessary. 09/27/23 1416 <Electronically signed by Toney Hoang MD> Cosigner Signature (if applicable): CC: Dr. Juan Sousa MD ~ Signed [facility] Work Phone: 1(450) 172-875111-01-2023 Discharge summary Author Toney Hoang [facility] September 27, 2023 2:16pm Note Date/Time September 27, 2023 2 :06pm [facility] Medical Records Department [address] [place] [address] Emergency Department Summary 09/27/23 MR#: [id number] Acct: [id number] Name: JADON REYES Rep #:[id number] : 1955 67 From: Toney Hoang MD PCP: Dr. Juan Sousa MD Status:PRE E R Location: ED HPI History of Present Illness Chief Complaint: Chest Pain Detail of Chief Complaint: Chest comfort and dyspnea with activity Informant: patient, spouse/S.O. 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 Nicolas) Onset/Context/Timing Onset: Weeks Activity at onset: sudden and exertion Timing: Intermittent Quality: Positive for Pressure Location: Substernal Current Severity: Gone Maximum Severity: Moderate Worsened By: Exertion Relieved By: Rest Associated Symptoms: Positive for Dyspnea; Negative for Nausea, Vomiting, Diaphoresis, Cough, Fever, Lightheadedness or Acid Reflux Narrative Narrative: Patient is a 67-year-old male who is a smoker. Does have history of hypertension and hyper triglyceridemia. He had a outpatient stress test. The stress test revealed inducible ischemic changes in the inferior leads. There was ST elevation per Dr. Nicolas. He contact the patient return to the emergency department since he left prior to the stress test being read. Presently patient denies shortness of breath or dyspnea. He states has been going on for weeks. He was seen on September 06. His troponins were negative. He predominately had dyspnea as his symptom. There is a strong family history cardiac disease. He states he will quit smoking today. He denies leg pain, swelling discoloration. He has history of VTE. Prior Similar Symptoms: Yes Recent Illness/Hospitalization: Yes CVD Risk Factors: Positive for Hypertension, Hypercholesterolemia, Family History 1' </=55 and Smoking; Negative for Diabetes PE Risk Factors: Negative for Recent Travel/Surgery, Recent Immobilization, Prior DVT or PE, Cancer or OCP + Smoking + >/=35 TAD Risk Factors: Positive for Hypertension; Negative for Marfan's Syndrome or Family History PFSH PFSH Medical History Smoker Home Medications clonidine HCl 0.2 mg tablet 0.2 mg PO Q8H PRN SBP>175 #15 tabs 06/14/20 [Rx Last Taken Unknown] tramadol 50 mg tablet 50 mg PO Q4H PRN PRN pain #15 tabs 06/14/20 [Rx Last Taken Unknown] losartan 100 mg-hydrochlorothiazide 12.5 mg tablet 1 tab PO DAILY 09/27/23 [History Last Taken 09/27/23] Allergy/AdvReac Type Severity Reaction Status Date / Time lisinopril Allergy PT UNSURE Verified 09/05/23 23:48 OF REACTION Social History (Updated 09/27/23 @ 14:[address] Toney Hoang MD) household members: spouse Smoking Status: Current every day smoker tobacco type: cigarettes and cigars substance use type: does not use ROS ROS ED Constitutional Constitutional ED: Denies chills, fever(s) or subjective Eyes Eyes: Reports none ENT ENT ED: Denies ear pain or rhinorrhea Cardiovascular Cardiovascular: Reports as per HPI; Denies orthopnea or paroxysmal nocturnal dyspnea Respiratory/Chest Respiratory/Chest: Reports dyspnea and dyspnea on exertion; Denies cough, orthopnea or paroxysmal nocturnal dyspnea Gastrointestinal Gastrointestinal: Denies abdominal pain, nausea or vomiting Genitourinary Genitourinary ED: Denies dysuria, hematuria or urinary frequency Musculoskeletal Musculoskeletal: Denies arthralgias or myalgias Integumentary Denies rash Neurologic Neurologic: Denies headache(s), paresthesias or weakness Hematologic/Lymphatic Hematologic/Lymphatic: Denies easy bleeding or easy bruising EXAM Physical Exam Const Vital Signs: 09/27/23 13:53 09/27/23 13:57 Temperature 97.5 F L Temperature Source Temporal Pulse Rate 65 Respiratory Rate 20 H Respiratory Effort Normal Non-Labored Blood Pressure 160/102 H Blood Pressure Mean 121 Pulse Ox 97 Oxygen Delivery Method Room Air Positive well nourished and well developed General Appearance ED: well developed and NAD HEENT Reports TM's clear and moist mucous membranes normocephalic Tympanic Membrane ED: Yes TM's clear Eyes PERRL and EOMs intact bilaterally General Eye ED: Negative for pale conjunctiva or scleral icterus Neck no lymphadenopathy, supple and no JVD Chest Wall inspection of chest normal and palpation of chest normal Resp normal respiratory effort and clear to auscultation bilaterally Cardio regular rate, regular rhythm, S1 normal heart sound, S2 normal heart sound and no murmurs Peripheral Pulses: pulses 2+ throughout GI normal to inspection, nondistended, normoactive bowel sounds, soft to palpation,non-tender, non-distended and no masses; Negative for hepatosplenomegaly Back/Spine no CVA tenderness and no thoracic nor lumbar tenderness Extremity normal to inspection Extremity Narrative: Patient does have hair on his toes. General Extremety ED: Negative for edema, pulses abnormal or tenderness General Extremity: Negative for edema or pulses abnormal Neuro oriented x3, CN's II-XII intact bilaterally, no sensory deficits noted and gait normal Sensorium / Orientation: awake and alert Motor Exam: strength 5/5 throughout Psych mental status grossly normal Skin no rashes or lesions noted and no wounds Heart Score History: Highly Suspicious ECG: Nonspecific Repolarization Age: >/= 65 years Risk Factors: >/= 3 Risk Factors or History of CAD Score: 7 MDM MDM MDM Narrative Medical decision making narrative: Patient has dyspnea with exertion and discomfort. His symptoms resolved with rest. He had an outpatient stress test today which revealed revealed reducible ischemic changes inferior leads. He did have ST elevation. Discussed with cardiology prior to arrival. Plan is aspirin, heparin admit and cardiac catheterization in the morning. Rhythm Strip Rhythm Strip: Sinus Rhythm Rate: 65 Ectopy: None EKG Initial EKG: Attestation: I personally reviewed and interpreted this EKG as follows: Interpretation: Sinus Rhythm (Normal sinus rhythm rate of 65. There is STchanges in the inferior leads that coincides with the abnormal stress test.) Management Discussion w/another healthcare provider: Hospitalist (With hospitalist who was made aware of plan per cardiology.) and Truck Repair Supervisor (Paper Rewinder Operator as documented in the HPI narrative) Critical Care Time Critical Care Time: Yes Critical care time (excluding procedures): 30-74 minutes (15 minutes), Includingtime spent: (History, physical, documentation, discussion with hospitalist and wire rope fabrication supervisor), Discussing w/Patient &/or Family/Deckhand Tuna Boat, Discussing w/Consultants and Arranging Admission or Transfer Discharge Plan Triage Chief Complaint: Chest Pain ED Provider: Toney Hoang Dx/Rx/DC Orders Clinical Impression: High triglycerides, ACS (acute coronary syndrome), Tobacco use, Hypertension Prescriptions: No Action tramadol 50 MG tablet 50 mg PO Q4H PRN PRN (Reason: pain) Qty: 15 0RF clonidine HCl 0.2 MG tablet 0.2 mg PO Q8H PRN (Reason: SBP>175) Qty: 15 0RF losartan-hydrochlorothiazide 100-12.5 mg tablet 1 tab PO DAILY Primary Care Provider: Juan Sousa Referrals: Juan Sousa MD [Primary Care Provider] - Disposition Disposition: Acute Care Hospital [facility] What to do if you have Problems For any increased pain, shortness of breath, bleeding, nausea or vomiting, chestpain, or any unexpected problems, contact your Primary Care Provider. Call [facility] ([phone]) or report to the closest Emergency Room. Call 911 if necessary. 09/27/23 1416 <Electronically signed by Toney Hoang MD> Cosigner Signature (if applicable): CC: Dr. Juan Sousa MD ~ Signed [facility] Work Phone: 1(979) 512-637506-23-2023 History of Present illness NarrativePatient is here for ED consult. He has tried Sildenafil and Cialis and this was not helpful. He is able to get a partial erection but is not able to penetrate. Libido is pretty good. No pain or curvature with erections.. Chronic BPH sx are mild and stable. Denies urgency and frequency. Denies dysuria. Denies hematuria. Nocturia x1. No medication for LUT'S. No hx of kidney stones. Unsure when last PSA was done. No fhx of prostate cancer. PSA 05/19 was 0.23. [id number] DO Work Phone: [phone]) 903-956901-05-2022 NoteHNO ID: [id number] Author: Angel Ewing MA Service: ? Author Type: Human Resources Operations Specialist Type: Progress Notes Filed: 12/01/2021 1:59 PM Note Text: POPULATION HEALTH NAVIGATION OUTREACH Action/FYI PCP OFF BOARDING OUTREACH Attempt # 1 LMOVM Attempt # 2 Sent [employer] Message. Encounter closed. Contact made with patient or family member? NO Pt identified by name and : NO Outreach Outcome/Action Unable to reach patient: Left message AWAKhart message sent Reason for Outreach Attribution: Provider Off-boarding Payer: Payor: [employer] / Plan: BLUE ACCESS PPO / Product Type: PPO / Care Gap Reviewed:: Annual Wellness visit Controlling Blood Pressure Flu vaccine Reminder: Reminder note to check Health Maintenance for items below Health Maintenance items due: ABDOMINAL AORTIC ANEURYSM SCREENING Never done COVID-19 VACCINE(1) Never done SPIROMETRY Never done BP CONTROLLED (<130/80) Never done SHINGRIX VACCINE(2 of 3) due on 01/21/2017 DEPRESSION SCREENING due on 06/01/2020 ANNUAL PCP TEAM CHRONIC DISEASE VISIT due on 07/24/2021 INFLUENZA(1) due on 07/28/2021 Angel Ewing MA December 01, 2021 1:56 [facility]01-04-2022 NotePatient Outreach (NETNAV) JADON REYES ([id number]) 1955 M Date Time Provider Department 11/30/21 ANGEL EWING During your visit today, we recorded the following information about you: Angel Ewing MA 12/01/2021 1:59 PM Signed POPULATION HEALTH NAVIGATION OUTREACH Action/FYI PCP OFF BOARDING OUTREACH Attempt # 1 LMOVM Attempt # 2 Sent [employer] Message. Encounter closed. Contact made with patient or family member? NO Pt identified by name and : NO Outreach Outcome/Action Unable to reach patient: Left message Parenthoodst message sent Reason for Outreach Attribution: Provider Off-boarding Payer: Payor: [employer]RAYDON / Plan: [place] PPO / Product Type: PPO / Care Gap Reviewed:: Annual Wellness visit Controlling Blood Pressure Flu vaccine Reminder: Reminder note to check Health Maintenance for items below Health Maintenance items due: ABDOMINAL AORTIC ANEURYSM SCREENING Never done COVID-19 VACCINE(1) Never done SPIROMETRY Never done BP CONTROLLED (<130/80) Never done SHINGRIX VACCINE(2 of 3) due on 01/21/2017 DEPRESSION SCREENING due on 06/01/2020 ANNUAL PCP TEAM CHRONIC DISEASE VISIT due on 07/24/2021 INFLUENZA(1) due on 07/28/2021 Angel Ewing MA December 01, 2021 1:56 PM Allergies As of Date: 11/30/2021 Noted Allergy Reaction LISINOPRIL 06/11/2018 3 - Cough SEASONAL ALLERGIES 03/02/2015 5 - Intolerance Date Reviewed: 07/24/2020 Reviewed by: Jacky Olivia LPN - Fully Assessed Reason for Visit: Population Health Navigation Outreach [3910] Cmt: Offboarding - Dr Wilkerson III Prescriptions as of 12/01/2021 - hydroCHLOROthiazide (HYDRODIURIL, ESIDRIX) 12.5 mg tablet Take 1 tablet by mouth once daily. - latanoprost (XALATAN) 0.005 % ophthalmic solution - sodium chloride (SALINE MIST) 0.65 % nasal spray Use 1 [place] in the nose as needed for Cold/Allergy Symptoms. - losartan (COZAAR) 100 mg tablet Take 1 tablet by mouth once daily. - naproxen sodium (ALEVE) 220 mg cap Take by mouth. - cetirizine (24HOUR ALLERGY) 10 mg tablet Take 10 mg by mouth once daily. - travoprost (TRAVATAN Z) 0.004 % OPHTHALMIC Drop 1 Drop daily at bedtime. - aspirin(ECOTRIN LOW STRENGTH 81 MG TAB) Take one(1) tablet daily. - multivitamins(MULTIPLE VITAMIN TAB) Take one(1) tablet daily. Problem List As Of Date 11/30/2021 Noted Resolved Asthma [J45.909] Other dyspnea and respiratory abnormality [R06.* 08/30/2016 SLEEP APNEA NOS [G47.30] ALLERGIC RHINITIS NOS [J30.9] BENIGN HYPERTENSION [I10] 07/27/2006 Diarrhea [R19.7] 11/06/2006 01/31/2017 Other conjunctivitis [H10.89] 01/23/2008 01/31/2017 Glaucoma (increased eye pressure) [H40.9] Impaired fasting glucose [R73.01] 01/31/2017 Hyperlipidemia LDL goal <100 [E78.5] 01/31/2017 Encounter for screening for malignant neoplasm *03/13/2017 Carpal tunnel syndrome, bilateral [G56.03] 05/28/2018 Forearm strain, left, initial encounter [S56.91*06/01/2019 Encounter Status:Closed by ANGEL EWING on 12/01/21[facility] noteNo assessment information availableWSelect [facility] Work Phone: Evaluation note* Diagnosis Onset Date Resolution Status ACS (acute coronary syndrome) acute High triglycerides acute Tobacco use acute Hypertension [facility] Work Phone: Evaluation note* Diagnosis Onset Date Resolution Status ACS (acute coronary syndrome) acute High triglycerides acute Tobacco use acute Unstable angina acute Hypertension [facility] Work Phone: Evaluation note* Diagnosis CAD in [place] artery- Primary CAD in [place] artery Other disorders of arteries, arterioles and capillaries in diseases classified elsewhere (HCC) Pre-op evaluation Abnormal findings on diagnostic imaging of heart and coronary circulation S/P CABG (coronary artery bypass graft) Postsurgical aortocoronary bypass status documented in this encounter [facility] note* Diagnosis CAD in [place] artery- Primary S/P CABG (coronary artery bypass graft) Postsurgical aortocoronary bypass status documented in this encounter [facility] note* Diagnosis CAD in [place] artery- Primary S/P CABG (coronary artery bypass graft) Postsurgical aortocoronary bypass status documented in this encounter [facility] note* Diagnosis Onset Date Resolution Status Atherosclerosis of coronary artery of [place] heart without angina pectoris acute Essential hypertension chron ic Hyperlipidemia chronic [facility] Work Phone: Reason for referral (narrative)No reason for referral information [facility] Work Phone: Summary Purpose Family History No Family History Records FoundUnknown Family Member Name Dates Details No pertinent family history: Mother, Father(V49.89, Z78.9) Status:Active Relationship Condition Age at Onset Recorded Date/T kevin father Kidney disorder Unknown Coronary artery disease Unknown Diabetes mellitus Unknown mother Malignant neoplasm Unknown sister Lupus Unknown grandfather Coronary artery disease Unknown Advance Directives No Advanced Directives Records Found Advance Directive Response Recorded Date/ Time Living Will No June 14, 2020 6:46pm Power of Wire Mill Rover No June 14 6:46pm Advance Directive Response Recorded Date/ Time Living Will No September 27 1:57pm Power of Wire Mill Rover No September 27, 2023 1:57pm Advance Directive Response Recorded Date/ Time Living Will No September 27 4:04pm Power of Wire Mill Rover No September 27, 2023 4:04pm Advance Directive Response Recorded Date/ Time Living Will No September 27 3:04pm Power of Wire Mill Rover No September 27, 2023 3:04pm Latest Code Status on File Code Status Date Activated Date Inactivated Comments Full Code 09/29/2023 7:00 AM 10/07/2023 5:05 PM Latest Code Status on File Code Status Date Activated Date Inactivated Comments Full Code 09/29/2023 7:00 AM 10/07/2023 5:05 PM Advance Directive Response Recorded Date/ Time Advance Directives on File No Janua ry 15th, 2024 1:01pm Living Will No December 11 1:01pm Power of Wire Mill Rover No December 11, 2023 1:01pm Advance Directive Response Recorded Date/ Time Advance Directives on File No Novua 2023 2:01pm Living Will No December 11 2:01pm Power of Wire Mill Rover No December 11, 2023 2:01pm Chief Complaint ED Chief Complaint and Reason for Visit Chief Complaint CHEST PAIN CHEST PAIN CHEST PAIN STEMI Reason for Visit ACS (acute coronary syndrome) High triglycerides Tobacco use Hypertension Chief Complaint CHEST PAIN CHEST PAIN CHEST PAIN STEMI STEMI STEMI STEMI Reason for Visit ACS (acute coronary syndrome) High triglycerides Tobacco use Unstable angina Hypertension Chief Complaint CHEST PAIN CHEST PAIN CHEST PAIN STEMI STEMI STEMI STEMI Chief Complaint CHEST PAIN CHEST PAIN CHEST PAIN STEMI STEMI STEMI STEMI S/P SUMMA CABGx3 (SCANNED) CABG CABG Reason for Visit History of coronary artery bypass surgery Essential hypertension Hyperlipidemia Chief Complaint CHEST PAIN CHEST PAIN STEMI STEMI STEMI STEMI S/P SUMMA CABGx3 (SCANNED) CABG CABG CABG Reason for Visit History of coronary artery bypass surgery Essential hypertension Hyperlipidemia Chief Complaint STEMI STEMI STEMI S/P SUMMA CABGx3 (SCANNED) CABG CABG CABG Reason for Visit History of coronary artery bypass surgery Essential hypertension Hyperlipidemia Chief Complaint S/P SUMMA CABGx3 (SC ANNED) CABG CABG CABG 3 M FU CABG Reason for Visit History of coronary artery bypass surgery Essential hypertension Hyperlipidemia Atherosclerosis of coronary artery of [place] heart without angina pectoris Essential hypertension Hyperlipidemia Chief Complaint CABG CABG CABG 3 M FU CABG CABG Reason for Visit Atherosclerosis of c oronary artery of [place] heart without angina pectoris Essential hypertension Hyperlipidemia Chief Complaint Admit Date INT LABS April 17, 2025 9:25a m 1 Y FU April 23, 2025 10:28 am Reason for Visit Admit Date Ascending aorta dilatation April 23 10:28am History of coronary artery bypass surger y April 23, 2025 10:28am Leg weakness April 23, 2025 10:28 am Essential hypertension April 23, 2025 10 :28am Hyperlipidemia April 23, 2025 10:28 am Chief Complaint Admit Date INT LABS April 17, 2025 9:25a m 1 Y FU April 23, 2025 10:28 am CLAUDICATION May 05, 2025 10:32 am Chief Complaint Admit Date INT LABS April 17, 2025 9:25a m 1 Y FU April 23, 2025 10:28 am CLAUDICATION May 05, 2025 10:32 am TAA May 28, 2025 1:43p m Additional Source Comments (unrecognized sect ion and content) No Status Records FoundNo Status Records FoundNo Status Records FoundNo Status Records FoundNo Status Records FoundNo Status Records FoundNo Status Records Found INFORMATION SOURCE (unrecogn ized section and content) DATE CREATED AUTHOR 07/03/2020 [facility] DATE CREATED AUTHOR AUTHOR'S ORGANIZ ATION 12/22/2021 [facility] DATE CREATED AUTHOR AUTHOR'S ORGANIZ ATION 02/16/2022 [facility] DATE CREATED AUTHOR AUTHOR'S ORGANIZ ATION 06/09/2023 [facility] DATE CREATED AUTHOR AUTHOR'S ORGANIZ ATION 06/09/2023 [employer] DATE CREATED AUTHOR AUTHOR'S ORGANIZ ATION 12/03/2023 [facility] DATE CREATED AUTHOR AUTHOR'S ORGANIZ ATION [facility] Goals (unrecognized section and content) Goals may be documented in a n alternate sectionGoals may be documented in an alternate sectionGoals may be documented in an alternate sectionGoals may be documented in an alternate sectionGoals may be documented in an alternate sectionGoals may be documented in an alternate sectionGoals may be documented in an alternate sectionGoals may be documented in an alternate sectionGoals may be documented in an alternate section Care Teams (unrecognized sec tion and content) Team Status: Active Member Role Status Dates Dr. Rafat Wilkerson III, MD Family Provider Active Dr. Juan Sousa MD Primary Care Provider Active Team Status: Active Member Role Status Dates Dr. Juan Sousa MD Primary Care Provi yariel, Referring Provider, Other Provider Active Dr. Tapan Nicolas MD Attending Provider Activ e Team Status: Inactive Member Role Status Dates Dr. Juan Sousa MD Primary Care Provider Active Heath Villalpando MD Attending Provider, Emergency Provid er Active Team Status: Active Member Role Status Dates Dr. Juan Sousa MD Primary Care Provi yariel, Attending Provider, Referring Provider Active Team Status: Active Member Role Status Dates Dr. Juan Sousa MD Primary Care Provider Active Dr. Toney Hoang MD Emergency Provider Active Dr. Edward Tereletsky , DO Admit Provider, Attending Pro vider Active Team Status: Active Member Role Status Dates Dr. Juan Sousa MD Primary Care Provider Active Dr. Toney Hoang MD Emergency Provider Active Dr. Edward Smith , DO Admit Provider, Attending Provider, Other Provider Active Dr. Tapan Nicolas MD Other Provider Active Team Status: Active Member Role Status Dates Dr. Juan Sousa MD Primary Care Provider Active Dr. Toney Hoang MD Emergency Provider Active Dr. Edward Smith , DO Admit Provider, Other Provide r Active Dr. Tapan Nicolas MD Attending Provider, Othe r Provider Active Dr. Catrina Merino MD Other Provider Active Team Status: Active Member Role Status Dates Dr. Juan Sousa MD Primary Care Provider Active Dr. Toney Hoang MD Emergency Provider Active Dr. Edward Smith , Admit Provider, Other Provide r Active Dr. Tapan Nicolas MD Other Provider Active Dr. Catrina Merino MD Attending Provider, Other Prov ider Active Team Status: Inactive Member Role Status Dates Dr. Juan Sousa MD Primary Care Provider Active Dr. Toney Hoang MD Emergency Provider Active Dr. Edward Smith , Admit Provider, Other Provide r Active Dr. Tapan Nicolas MD Other Provider Active Dr. Catrina Merino MD Attending Provider Active Team Status: Inactive Member Role Status Dates Dr. Juan Sousa MD Primary Care Provi yariel, Attending Provider, Referring Provider Active Systems Integration Analyst Relationship Specialty Start Date End Date Juan Sousa MD [address] [facility] [address] [place] [address] PCP - General Family Medicine 09/29/23 Systems Integration Analyst Relationship Specialty Start Date End Date Juan Sousa MD [address] [facility] [address] [place] [address] PCP - General Family Medicine 09/29/23 Team Status: Active Member Role Status Dates Dr. Juan Sousa MD Primary Care Provider Active Dr. Toney Hoang MD Emergency Provider Active Dr. Edward Smith DO Admit Provider, Other Provide r Active Dr. Tapan Nicolas MD Attending Provider, Referring Provider, Other Provider Active Dr. Catrina Merino MD Other Provider Active Team Status: Inactive Member Role Status Dates Dr. Juan Sousa MD Primary Care Provider, Attending Provider Active Systems Integration Analyst Relationship Specialty Start Date End Date Juan Sousa MD [address] [facility] [address] [place] [id number] PCP - General Family Medicine 09/29/23 Team Status: Inactive Member Role Status Dates Dr. Juan Sousa MD Primary Care Provider, Referring Provider Active Patrice Wilson SURGICAL APPLIANCE FITTER, SURGICAL APPLIANCE FITTER-C Attending Provider Active Team Status: Active Member Role Status Dates Dr. Juan Sousa MD Primary Care Provider Active Dr. Nikolai Stephens MD Attending Provider Active Team Status: Active Member Role Status Dates Dr. Juan Sousa MD Primary Care Provider Active Dr. Nikolai Stephens MD Attending Provider, Referring Provider Active Team Status: Inactive Member Role Status Dates Dr. Juan Sousa MD Primary Care Provider Active Dr. Nikolai Stephens MD Attending Provider, Referring Provider Active Team Status: Inactive Member Role Status Dates Dr. Juan Sousa MD Primary Care Provider, Referring Provider Active Dr. Nikolai Stephens MD Attending Provider Active Team Status: Active Member Role Status Dates Dr. Juan Sousa MD Primary Care Provider Active Team Status: Inactive Member Role Status Dates Dr. Juan Sousa MD Primary Care Provider Active Start: January 08, 2025 End: January 08, 2025 Dr. Juan Sousa MD Attending Provider Active Start: January 08, 2025 End: January 08, 2025 Dr. Juan Sousa MD Referring Provider Active Start: January 08, 2025 End: January 08, 2025 Team Status: Active Member Role Status Dates Dr. Juan Sousa MD Primary Care Provider Active Start: April 17, 2025 Jeri Quinn PA, PA Attending Provider Active Start: April 17, 2025 Jeri Quinn PA, PA Referring Provider Active Start: April 17, 2025 Team Status: Inactive Member Role Status Dates Dr. Juan Sousa MD Primary Care Provider Active Start: April 23, 2025 End: April 23, 2025 Dr. Juan Sousa MD Referring Provider Active Start: April 23, 2025 End: April 23, 2025 Jeri Quinn PA, PA Attending Provider Active Start: April 23, 2025 End: April 23, 2025 Team Status: Inactive Member Role Status Dates Dr. Juan Sousa MD Primary Care Provider Active Start: April 17, 2025 End: April 17, 2025 Jeri Quinn PA, PA Attending Provider Active Start: April 17, 2025 End: April 17, 2025 Jeri Quinn PA, PA Referring Provider Active Start: April 17, 2025 End: April 17, 2025 Team Status: Inactive Member Role Status Dates Dr. Juan Sousa MD Primary Care Provider Active Start: May 05, 2025 End: May 05, 2025 Jeri Quinn PA, PA Attending Provider Active Start: May 05, 2025 End: May 05, 2025 Jeri Quinn PA, PA Referring Provider Active Start: May 05, 2025 End: May 05, 2025 Team Status: Active Member Role Status Dates Dr. Juan Sousa MD Primary Care Provider Active Start: May 05, 2025 Dr. Jose Alberto Medrano MD Attending Provider Active S tart: May 05, 2025 Team Status: Active Member Role/Relationship Status Dates Dr. Juan Sousa MD Primary Care Provider Active Team Status: Inactive Member Role/Relationship Status Dates Dr. Juan Sousa MD Primary Care Provider Active Start: April 17, 2025 End: April 17, 2025 Jeri Quinn PA, PA Attending Provider Active Start: April 17, 2025 End: April 17, 2025 Jeri Quinn PA, PA Referring Provider Active Start: April 17, 2025 End: April 17, 2025 Team Status: Inactive Member Role/Relationship Status Dates Dr. Juan Sousa MD Primary Care Provider Active Start: April 23, 2025 End: April 23, 2025 Dr. Juan Sousa MD Referring Provider Active Start: April 23, 2025 End: April 23, 2025 Jeri Quinn PA, PA Attending Provider Active Start: April 23, 2025 End: April 23, 2025 Team Status: Inactive Member Role/Relationship Status Dates Dr. Juan Sousa MD Primary Care Provider Active Start: May 05, 2025 End: May 05, 2025 Jeri Quinn PA, PA Attending Provider Active Start: May 05, 2025 End: May 05, 2025 Jeri Quinn PA, PA Referring Provider Active Start: May 05, 2025 End: May 05, 2025 Team Status: Active Member Role/Relationship Status Dates Dr. Juan Sousa MD Primary Care Provider Active Start: May 05, 2025 Dr. Jose Alberto Medrano MD Attending Provider Active S tart: May 05, 2025 Jeri Quinn PA, PA Referring Provider Active Start: May 05, 2025 Team Status: Inactive Member Role/Relationship Status Dates Dr. Juan Sousa MD Primary Care Provider Active Start: May 28, 2025 End: May 28, 2025 Jeri Quinn PA, PA Attending Provider Active Start: May 28, 2025 End: May 28, 2025 Jeri Quinn PA, PA Referring Provider Active Start: May 28, 2025 End: May 28, 2025 Team Status: Active Member Role/Relationship Status Dates Dr. Juan Sousa MD Primary Care Provider Active Start: May 28, 2025 Dr. Alberto Coyne MD Attending Provider Active S tart: May 28, 2025 Team Status: Active Member Role/Relationship Status Dates Dr. Juan Sousa MD Primary care physician Active Team Status: Inactive Member Role/Relationship Status Dates Dr. Juan Sousa MD Primary care physician Active Start: April 17, 2025 End: April 17, 2025 Jeri PEOPLES, PA Attending physician Active Start: April 17, 2025 End: April 17, 2025 Jeri Quinn PA, PA Referring Provider Active Start: April 17, 2025 End: April 17, 2025 Team Status: Inactive Member Role/Relationship Status Dates Dr. Juan Sousa MD Primary care physician Active Start: April 23, 2025 End: April 23, 2025 Dr. Juan Sousa MD Referring Provider Active Start: April 23, 2025 End: April 23, 2025 Jeir Quinn PA, PA Attending physician Active Start: April 23, 2025 End: April 23, 2025 Team Status: Inactive Member Role/Relationship Status Dates Dr. Juan Sousa MD Primary care physician Active Start: May 05, 2025 End: May 05, 2025 RICHELLE Ross Attending physician Active Start: May 05, 2025 End: May 05, 2025 RICHELLE Ross Referring Provider Active Start: May 05, 2025 End: May 05, 2025 Team Status: Active Member Role/Relationship Status Dates Dr. Juan Sousa MD Primary care physician Active Start: May 05, 2025 Dr. Jose Alberto Medrano MD Attending physician Active Start: May 05, 2025 Jeri PEOPLES PA Referring Provider Active Start: May 05, 2025 Team Status: Inactive Member Role/Relationship Status Dates Dr. Juan Sousa MD Primary care physician Active Start: May 28, 2025 End: May 28, 2025 RICHELLE Ross Attending physician Active Start: May 28, 2025 End: May 28, 2025 RICHELLE Ross Referring Provider Active Start: May 28, 2025 End: May 28, 2025 Team Status: Active Member Role/Relationship Status Dates Dr. Juan Sousa MD Primary care physician Active Start: May 28, 2025 Dr. Alberto Coyne MD Attending physician Active Start: May 28, 2025 Team Status: Inactive Member Role/Relationship Status Dates Dr. Juan Sousa MD Primary care physician Active Start: July 30, 2025 End: July 30, 2025 Dr. Juan Sousa MD Attending physician Active Start: July 30, 2025 End: July 30, 2025 Reason for Visit (unrecogniz ed section and content) Specialty Diagnoses / Procedures Referred By Contac t Referred To Contact Diagnoses CAD in [place] artery cad Procedures . Kit Beverly MD [address] [place] [address] [address] [place] [address] Referral ID Status Reason Start Date Expiration Date Visits Re quested Visits Authorized [id number] 1 1 Reason Comments Post-op Scheduled Active and Recently Administ ered Medications (unrecognized section and content) Medication Order 10/05/2023 10/06/2023 10/07/2023 acetaminophen (Tylenol) tablet 1,000 mg 1,000 mg, Oral, Every 8 hours, First dose on Mon10/03/23 at 1300, Recovery & On Unit 0613 (Given - Provider: Lynne Griffith RN)1206 (Given - Provider: Manjula Ramirez RN)210 (Given - Provider: Martha Claudio RN) 06 (Given - Provider: Martha Claudio RN)141 (Given - Provider: Lisbeth Ramesh RN)214 (Given - Provider: DENZEL DOSHI) 0640 (Given - Provider: DENZEL DOSHI)1351 (Given - Provider: Monik Mcgovern) aspirin chewable tablet 324 mg 324 mg, Oral, Daily, First dose on Mon10/04/23 at 0900 0905 (Given - Provider: Joanne Damon RN) 0808 (Given - Provider: Lisbeth Ramesh RN) 1012 (Given - Provider: Monik Mcgovern) atorvastatin (Lipitor) tablet 80 mg 80 mg, Oral, Daily, First dose on Mon10/04/23 at 0900 0905 (Given - Provider: Joanne Damon RN) 0808 (Given - Provider: Lisbeth Ramesh RN) 1012 (Given - Provider: Monik Mcgovern) chlorhexidine (Peridex) 0.12 % solution 15 mL 15 mL, Mouth/Throat, 2 times daily, First dose on Mon10/03/23 at 1300, For 7 days, Phase II/On Unit, Rinse and spit. Do not swallow. 09 (Given - Provider: Joanne Damon RN)2102 (Given - Provider: Martha Claudio RN) 0808 (Given - Provider: Lisbeth Ramesh RN)214 (Given - Provider: DENZEL DOSHI) 1012 (Given - Provider: Monik Mcgovern) heparin injection 5,000 Units 5,000 Units, SubCUTAneous, 2 times daily, First dose on Mon10/04/23 at 0900 0905 (Given - Provider: Joanne Damon RN)210 (Given - Provider: Martha Claudio RN) 08 (Given - Provider: Lisbeth Ramesh RN)214 (Given - Provider: DENZEL DOSHI) 1012 (Given - Provider: Mnoik Mcgovern) latanoprost (Xalatan) 0.005 % ophthalmic solution 1 drop 1 drop, Both Eyes, Nightly, First dose on Mon10/04/23 at 2100 2104 (Given - Provider: Martha Claudio RN) 214 (Given - Provider: DENZEL DOSHI) Lidocaine 4 % patch 1 patch 1 patch, Topical, Administer over 12 Hours, Daily, First dose on Mon10/03/23 at 1300, Recovery & On Unit, Cut in half and place on both sides of the incision. Patch may remain in place for up to 12 hours in any 24 hour period. 0905 (Medication Applied - Provider: Joanne Damon RN)2104 (Medication Removed - Provider: Martha Claudio RN) 08 (Medication Applied - Provider: Lisbeth Ramesh RN)2141 (Medication Removed - Provider: DENZEL DOSHI) 101 (Medication Applied - Provider: Monik Mcgovern)1459 (Due: Medication Removed - Provider: Automatic Discharge Provider - Comment: Time automatically adjusted from order being discontinued) magnesium hydroxide (Milk of Magnesia) 400 MG/5ML suspension 30 mL (CANCELED) 30 mL, Oral, Daily, First dose (after last modification) on Mon10/05/23 at 0715, Recovery & On Unit, 1st line for treatment of constipation - give scheduled if no bowel movement in past 24 hours 0943 (Not Given - Provider: Joanne Damon RN - Reason: Patient/family refused - Comment: Patient had BM this AM) 0626 (Given - Provider: Martha Claudio RN) methocarbamol (Robaxin) tablet 1,000 mg (CANCELED) 1,000 mg, Oral, Every 8 hours scheduled (3 times per day), First dose on Mon10/05/23 at 0630 0905 (Given - Provider: Joanne Damon RN) methocarbamol (Robaxin) tablet 500 mg 500 mg, Oral, Every 8 hours scheduled (3 times per day), First dose (after last modification) on Mon10/05/23 at 1400 1547 (Given - Provider: Manjula Ramirez RN)2102 (Given - Provider: Martha Claudio RN) 0626 (Given - Provider: Martha Claudio RN)141 (Given - Provider: Lisbeth Ramesh RN)2140 (Given - Provider: DENZEL DOSHI) 0640 (Given - Provider: DENZEL DOSHI)1351 (Given - Provider: Monik Mcgovern) metoclopramide (Reglan) injection 10 mg (CANCELED) 10 mg, IntraVENous, Every 6 hours, First dose on Mon10/05/23 at 0715, Recovery & On Unit, Give IV if patient is unable to take orally. 09 (Given - Provider: Joanne Damon RN)1215 (Given - Provider: Manjula Ramirez RN) metoprolol tartrate (Lopressor) tablet 25 mg 25 mg, Oral, 2 times daily, First dose on Mon10/04/23 at 0900, Hold for SBP less than 105 and/or MAPs less than 65 and/or HR less than 60 0905 (Given - Provider: Joanne Damon RN)210 (Given - Provider: Martha Claudio RN) 08 (Given - Provider: Lisbeth Ramesh RN)2140 (Given - Provider: DENZEL DOSHI) 1012 (Given - Provider: Monik Mcgovern) mupirocin (Bactroban) 2 % ointment Nasal, 2 times daily, First dose on Mon10/03/23 at 1300, For 4 days, Phase II/On Unit 0922 (Not Given - Provider: Joanne Damon RN - Reason: Patient/family refused)2100 (Not Given - Provider: Martha Claudio RN - Reason: Patient/family refused) 08 (Given - Provider: Lisbeth Ramesh RN)2141 (Given - Provider: DENZEL DOSHI) pantoprazole (ProtoNix) EC tablet 40 mg 40 mg, Oral, Daily before breakfast, First dose on Mon10/05/23 at 0715, Do not crush, chew, or split. 0905 (Given - Provider: Joanne Damon RN) 0626 (Given - Provider: Martha Claudio RN) 0640 (Given - Provider: DENZEL DOSHI) pantoprazole (ProtoNix) injection 40 mg (CANCELED) 40 mg, IntraVENous, Administer over 2 Minutes, Daily, First dose on Mon10/04/23 at 0600, Phase II/On Unit, Reconstitute with 10 mL 0.9 % sodium chloride and administer over at least 2 minutes. 0612 (Given - Provider: Lynne Griffith RN) polyethylene glycol (PEG) 3350 (Miralax) packet 17 g 17 g, Oral, Daily, First dose on Mon10/03/23 at 1300, Recovery & On Unit, Bowel Regimen - for prevention of constipation. 0905 (Given - Provider: Joanne Damon RN) 0900 (Not Given - Provider: Lisbeth Ramesh RN - Reason: Other - Comment: Pt took milk of mag this morning.) 101 (Not Given - Provider: Monik Mcgovern - Reason: Patient/family refused) senna-docusate sodium (Senokot-S) 8.6-50 MG tablet 2 tablet 2 tablet, Oral, Nightly, First dose on Mon10/03/23 at 2100, Recovery & On Unit, Bowel Regimen - for prevention of constipation. 2103 (Given - Provider: Martha Claudio RN) 2139 (Given - Provider: DENZEL DOSHI) sodium chloride 0.9% (NS) flush 10 mL 10 mL, IntraVENous, Every 12 hours scheduled (2 times per day), First dose on Mon10/03/23 at 2100, Recovery & On Unit 0944 (Given - Provider: Jaonne Damon RN)2103 (Given - Provider: Martha Claudio RN) 08 (Given - Provider: Lisbeth Ramesh RN)2140 (Given - Provider: DENZEL DOSHI) 101 (Given - Provider: Monik Mcgovern) PRN Medication Order 10/05/2023 10/06/2023 10/07/2023 albumin human 25 % IV solution 25 g 25 g, IntraVENous, As needed, fluid bolus challenge PRN: PAD below goal (18) and/or Low BP (less than 90 SBP and/or less than 60 MAP) and/or Low urine output (less than 30ml/hr) per hemodynamic goals, Starting on Mon10/03/23 at 1248, For 2 doses, Phase II/On Unit, To be given in conjunction with PRN 250ml Lactate Ringer Bolus Use if hgb greater than 7.5 and PAD below goal (18) and/or Low BP (less than 90 SBP and/or less than 60 MAP) and/or Low urine output (less than 30ml/hr) per hemodynamic goals If hemodynamic goals unattained, proceed to second fluid bolus challenge If hgb less than 7.5 notify surgeon for orders. calcium gluconate 2000 mg in 100 mL IVPB premix 2,000 mg, IntraVENous, at 50 mL/hr, Administer over 2 Hours, PRN, ionized calcium less than 4.3, Starting on Mon10/03/23 at 1248, Recovery & On Unit, Give 2000 mg for ionized calcium less than 4.3 premix bag dextrose 5 % infusion 100 mL/hr, IntraVENous, PRN, Blood sugar less than 70mg/dL, Starting on Mon10/03/23 at 1248, Recovery & On Unit, Start infusion following administration of dextrose 50% or glucagon. dextrose 50 % solution 12.5 g 12.5 g, IntraVENous, PRN, low blood sugar, Blood glucose less than 70 mg/dL and patient NOT ALERT or NPO., Starting on Mon10/03/23 at 1248, Recovery & On Unit, If patient does not respond within 5 minutes, repeat dose x1. Start D5W at 100 mL/hour until ordering provider can be reached. Repeat blood glucose in 15 minutes. If blood glucose is less than 70 mg/dL, repeat treatment and recheck blood glucose in 15 minutes x2. If using Glucostabilizer, dose as instructed per system. glucagon (human recombinant) injection 1 mg 1 mg, IntraMUSCular, PRN, low blood sugar, Blood glucose less than 70 mg/dL and patient NOT ALERT or NPO and does not have IV access., Starting on Mon10/03/23 at 1248, Recovery & On Unit, After administration, attempt intravenous access and start D5W at 100 mL/hr. Repeat blood glucose in 15 minutes x2 and notify provider. glucose oral gel 15 g 15 g, Oral, As needed, low blood sugar, Starting on Mon10/03/23 at 1248, Recovery & On Unit, If blood glucose less than 50 mg/dL and patient ALERT and NOT NPO, give 2 tubes glucose gel. If blood glucose less than 70 mg/dL and patient ALERT and NOT NPO, give 1 tube glucose gel. Repeat blood glucose in 15 minutes. If blood glucose is less than 70 mg/dL, repeat treatment and recheck blood glucose in 15 minutes x2 and notify provider. ipratropium-albuterol (Duo-Neb) 0.5-2.5 mg/3 mL nebulizer solution 3 mL 3 mL, Nebulization, 3 times daily PRN, wheezing, shortness of breath, Starting on Mon10/03/23 at 1248, Recovery & On Unit lactated ringers bolus 250 mL 250 mL, IntraVENous, at 124 mL/hr, Administer over 121 Minutes, Continuous PRN, fluid bolus challenge: lactated ringers bolus, Starting on Mon10/03/23 at 1248, For 2 doses, Phase II/On Unit, To be given in conjunction with PRN 25gm Albumin order Use if hgb greater than 7.5 and PAD below goal (18) and/or Low BP (less than 90 SBP and/or less than 60 MAP) and/or Low urine output (less than 30ml/hr) per hemodynamic goals If hemodynamic goals unattained, proceed to second fluid bolus challenge If hgb less than 7.5 notify surgeon for orders. magnesium sulfate IVPB 4,000 mg(Linked Group 1) 4,000 mg, IntraVENous, at 25 mL/hr, Administer over 4 Hours, As needed, Per Magnesium Replacement Protocol, Starting on Mon10/03/23 at 1248, Recovery & On Unit, Mg Lab Replacement Action 1.4-1.6 2 gram IVPB x 1 doses 1.0-1.3 4 gram IVPB x 1 doses Less than 1.0 CALL PHYSICIAN and 4 gram IVPB x 1 doses Infuse at 1 gram/hr. Repeat Mag level next AM. Not for use in Patients with CrCl less than 30 mL/min. magnesium sulfate IVPB premix 2,000 mg(Linked Group 1) 2,000 mg, IntraVENous, at 25 mL/hr, Administer over 2 Hours, As needed, Per Magnesium Replacement Protocol, Starting on Mon10/03/23 at 1248, Recovery & On Unit, Mg Lab Replacement Action 1.4-1.6 2 gram IVPB x 1 doses 1.0-1.3 4 gram IVPB x 1 doses Less than 1.0 CALL PHYSICIAN and 4 gram IVPB x 1 doses Infuse at 1 gram/hr. Repeat Mag level next AM. Not for use in Patients with CrCl less than 30 mL/min. morphine injection 2 mg(Linked Group 2) 2 mg, IntraVENous, Every 2 hour PRN, moderate pain (4-6), Starting on Mon10/03/23 at 1248, Recovery & On Unit, If oral and IV narcotics ordered, use oral first and only use IV if oral is ineffective or cannot take oral. Do Not give oral and IV within 1 hour of each other unless specifically ordered. 0613 (See Alternative - Provider: Lynne Griffith RN) morphine injection 4 mg(Linked Group 2) 4 mg, IntraVENous, Every 2 hour PRN, severe pain (7-10), Starting on Mon10/03/23 at 1248, Recovery & On Unit, If oral and IV narcotics ordered, use oral first and only use IV if oral is ineffective or cannot take oral. Do Not give oral and IV within 1 hour of each other unless specifically ordered. 0613 (Given - Provider: Lynne Griffith RN) ondansetron (Zofran) injection 4 mg(Linked Group 3) 4 mg, IntraVENous, Every 6 hours PRN, nausea, vomiting, Starting on Mon10/03/23 at 1248, Recovery & On Unit, 1st Line. Give IV if patient is unable to take orally. If inadequate response within 60 minutes, proceed to next-line agent or contact provider if no further options ordered. ondansetron ODT (Zofran-ODT) disintegrating tablet 4 mg(Linked Group 3) 4 mg, Oral, Every 8 hours PRN, nausea, vomiting, Starting on Mon10/03/23 at 1248, Recovery & On Unit, 1st Line. If inadequate response within 60 minutes, proceed to next-line agent or contact provider if no further options ordered. Patient should allow tablet to dissolve on tongue. Do not remove from blister pack until just before administering. oxyCODONE (Roxicodone) immediate release tablet 10 mg(Linked Group 4) 10 mg, Oral, Every 4 hours PRN, severe pain (7-10), Starting on Mon10/04/23 at 0615, Recovery & On Unit 0412 (Given - Provider: Lynne Griffith RN)0953 (Given - Provider: Joanne Damon RN) oxyCODONE (Roxicodone) immediate release tablet 5 mg(Linked Group 4) 5 mg, Oral, Every 4 hours PRN, moderate pain (4-6), Starting on Mon10/04/23 at 0615, Recovery & On Unit 0412 (See Alternative - Provider: Lynne Griffith RN)0953 (See Alternative - Provider: Joanne Damon RN) potassium chloride 20 mEq in sodium chloride 0.9 % 250 mL IVPB(Linked Group 5) 20 mEq, IntraVENous, at 130 mL/hr, Administer over 2 Hours, Every 8 hours PRN, hypokalemia, Starting on Mon10/03/23 at 1248, Recovery & On Unit, For Peripheral Line Use K Lab Replacement Action 3.1-3.5 20 mEq IVPB x 1 doses 2.7-3.0 40 mEq IVPB x 1 doses less than 2.7 CALL PROVIDER and administer 40 mEq IVPB x 1 dose Infuse at 10 mEq/hr Repeat Potassium lab 1 hour after administration. Protocol not for use in Patients with CrCl less than 30mL/min potassium chloride 40 mEq in sodium chloride 0.9 % 500 mL IVPB(Linked Group 5) 40 mEq, IntraVENous, at 130 mL/hr, Administer over 4 Hours, 3 times daily PRN, hypokalemia, Starting on Mon10/03/23 at 1248, Recovery & On Unit, For Peripheral Line Use. K Lab Replacement Action 3.1-3.5 20 mEq IVPB x 1 doses 2.7-3.0 40 mEq IVPB x 1 doses less than 2.7 CALL PROVIDER and administer 40 mEq IVPB x 1 dose Infuse at 10 mEq/hr Repeat Potassium lab 1 hour after administration. Protocol not for use in Patients with CrCl less than 30mL/min potassium chloride CR (Klor-Con M10) ER tablet 20 mEq 20 mEq, Oral, PRN, Hypokalemia, Starting on Mon10/04/23 at 0000, Phase II/On Unit, If patient is intubated or not tolerating PO use PRN IV replacement protocol Potassium level Dose LESS than 3.0 = Give 20 mEq x 3 doses 3.0-3.6 = Give 20 mEq x 2 doses Recheck potassium level 2 hour after replacement given, place order for lab under [place] If potassium level LESS than 3 after 1st replacement: Call surgeon. Do not crush or break. Do not crush or chew. potassium chloride IVPB 20 mEq(Linked Group 5) 20 mEq, IntraVENous, at 50 mL/hr, Administer over 1 Hours, 3 times daily PRN, hypokalemia, Starting on Mon10/03/23 at 1248, Recovery & On Unit, For Central Line Use Only K Lab Replacement Action 3.1-3.5 20 mEq IVPB x 1 doses 2.7-3.0 20 mEq IVPB x 2 doses (40 mEq Total) less than 2.7 CALL PROVIDER and administer 20 mEq IVPB x 2 doses (40 mEq Total) Infuse at 20 mEq/hr Repeat Potassium lab 1 hour after final administration. Protocol not for use in Patients with CrCl less than 30mL/min For central line administration only. sodium chloride 0.9 % infusion 5-250 mL/hr, IntraVENous, PRN, if patient receiving piggyback infusions and maintenance fluids are not ordered OR KVO fluids to protect IV site / prevent frequent line interruptions/ long duration, Starting on Mon10/03/23 at 1248, Recovery & On Unit, For piggyback infusion, administer at same rate as piggyback for a total of 25 mL. Enter 25 mL into dose field and piggyback rate into rate field of order. If piggyback is infusing at a rate less than 100 mL/hr, enter 25 mL into dose field and 100 mL/hr into rate field of order. For KVO fluids, enter rate of 20 mL/hr or less into rate field of order. sodium chloride 0.9% (NS) flush 10 mL 10 mL, IntraVENous, PRN, line care, Starting on Mon10/03/23 at 1248, Recovery & On Unit, After every IV line use Linked Groups Order Group 1: magnesium sulfate IVPB premix 2,000 mgJump to med 2,000 mg, IntraVENous, at 25 mL/hr, Administer over 2 Hours, As needed, Per Magnesium Replacement Protocol, Starting on Mon10/03/23 at 1248, Recovery & On Unit, Mg Lab Replacement Action 1.4-1.6 2 gram IVPB x 1 doses 1.0-1.3 4 gram IVPB x 1 doses Less than 1.0 CALL PHYSICIAN and 4 gram IVPB x 1 doses Infuse at 1 gram/hr. Repeat Mag level next AM. Not for use in Patients with CrCl less than 30 mL/min. Or magnesium sulfate IVPB 4,000 mgJump to med 4,000 mg, IntraVENous, at 25 mL/hr, Administer over 4 Hours, As needed, Per Magnesium Replacement Protocol, Starting on Mon10/03/23 at 1248, Recovery & On Unit, Mg Lab Replacement Action 1.4-1.6 2 gram IVPB x 1 doses 1.0-1.3 4 gram IVPB x 1 doses Less than 1.0 CALL PHYSICIAN and 4 gram IVPB x 1 doses Infuse at 1 gram/hr. Repeat Mag level next AM. Not for use in Patients with CrCl less than 30 mL/min. Group 2: morphine injection 2 mgJump to med 2 mg, IntraVENous, Every 2 hour PRN, moderate pain (4-6), Starting on Mon10/03/23 at 1248, Recovery & On Unit, If oral and IV narcotics ordered, use oral first and only use IV if oral is ineffective or cannot take oral. Do Not give oral and IV within 1 hour of each other unless specifically ordered. Or morphine injection 4 mgJump to med 4 mg, IntraVENous, Every 2 hour PRN, severe pain (7-10), Starting on Mon10/03/23 at 1248, Recovery & On Unit, If oral and IV narcotics ordered, use oral first and only use IV if oral is ineffective or cannot take oral. Do Not give oral and IV within 1 hour of each other unless specifically ordered. Group 3: ondansetron ODT (Zofran-ODT) disintegrating tablet 4 mgJump to med 4 mg, Oral, Every 8 hours PRN, nausea, vomiting, Starting on Mon10/03/23 at 1248, Recovery & On Unit, 1st Line. If inadequate response within 60 minutes, proceed to next-line agent or contact provider if no further options ordered. Patient should allow tablet to dissolve on tongue. Do not remove from blister pack until just before administering. Or ondansetron (Zofran) injection 4 mgJump to med 4 mg, IntraVENous, Every 6 hours PRN, nausea, vomiting, Starting on Mon10/03/23 at 1248, Recovery & On Unit, 1st Line. Give IV if patient is unable to take orally. If inadequate response within 60 minutes, proceed to next-line agent or contact provider if no further options ordered. Group 4: oxyCODONE (Roxicodone) immediate release tablet 5 mgJump to med 5 mg, Oral, Every 4 hours PRN, moderate pain (4-6), Starting on Mon10/04/23 at 0615, Recovery & On Unit Or oxyCODONE (Roxicodone) immediate release tablet 10 mgJump to med 10 mg, Oral, Every 4 hours PRN, severe pain (7-10), Starting on Mon10/04/23 at 0615, Recovery & On Unit Group 5: potassium chloride IVPB 20 mEqJump to med 20 mEq, IntraVENous, at 50 mL/hr, Administer over 1 Hours, 3 times daily PRN, hypokalemia, Starting on Mon10/03/23 at 1248, Recovery & On Unit, For Central Line Use Only K Lab Replacement Action 3.1-3.5 20 mEq IVPB x 1 doses 2.7-3.0 20 mEq IVPB x 2 doses (40 mEq Total) less than 2.7 CALL PROVIDER and administer 20 mEq IVPB x 2 doses (40 mEq Total) Infuse at 20 mEq/hr Repeat Potassium lab 1 hour after final administration. Protocol not for use in Patients with CrCl less than 30mL/min For central line administration only. Or potassium chloride 20 mEq in sodium chloride 0.9 % 250 mL IVPBJump to med 20 mEq, IntraVENous, at 130 mL/hr, Administer over 2 Hours, Every 8 hours PRN, hypokalemia, Starting on Mon10/03/23 at 1248, Recovery & On Unit, For Peripheral Line Use K Lab Replacement Action 3.1-3.5 20 mEq IVPB x 1 doses 2.7-3.0 40 mEq IVPB x 1 doses less than 2.7 CALL PROVIDER and administer 40 mEq IVPB x 1 dose Infuse at 10 mEq/hr Repeat Potassium lab 1 hour after administration. Protocol not for use in Patients with CrCl less than 30mL/min Or potassium chloride 40 mEq in sodium chloride 0.9 % 500 mL IVPBJump to med 40 mEq, IntraVENous, at 130 mL/hr, Administer over 4 Hours, 3 times daily PRN, hypokalemia, Starting on Mon10/03/23 at 1248, Recovery & On Unit, For Peripheral Line Use. K Lab Replacement Action 3.1-3.5 20 mEq IVPB x 1 doses 2.7-3.0 40 mEq IVPB x 1 doses less than 2.7 CALL PROVIDER and administer 40 mEq IVPB x 1 dose Infuse at 10 mEq/hr Repeat Potassium lab 1 hour after administration. Protocol not for use in Patients with CrCl less than 30mL/min FOR RECORDS PERTAINING TO PATIENTS WHO ARE OR HAVE BEEN ENROLLED IN A CHEMICAL DEPENDENCY/SUBSTANCEABUSE PROGRAM, SOME INFORMATION MAY BE OMITTED. This clinical summary was aggregated from multiple sources. Caution should be exercised in using it in the provision of clinical care. This summary normalizes information from multiple sources, and as a consequence, information in this document may materially change the coding, format and clinical context of patient data. In addition, data may be omitted in some cases. CLINICAL DECISIONS SHOULD BE BASED ON THE PRIMARY CLINICAL RECORDS. [facility] [employer] [facility]. provides no warranty or guarantee of the accuracy or completeness of information in this document.
[2025-08-17 23:24] LABS: Hematocrit 40.3 % (40-54); Hemoglobin 13.8 g/dL (13.0-16.5); Immature Granulocytes Count 0.010 X10^3/uL (0.0-0.0); Mean Corp Hgb Conc 34.2 g/dL (32-36); Mean Corpuscular Volume 90.0 fL (80-94); Mean Platelet Vol. 9.8 fl (6.2-12.0); NRBC Flagged by Analyzer 0 % (0-5); Platelet Count 128 K/mm3 (150-450); RBC Distribution Width CV 13.2 % (11.6-14.6); RBC Distribution Width SD 43.7 fl (35.1-43.9); Red Blood Count 4.48 M/mm3 (4.6-6.2); White Blood Count 5.5 K/mm3 (4.4-11.0)
[2025-08-17 23:32] LABS: Anion Gap 11 (5-15); BUN 25 mg/dL (4-19); BUN/Creat Ratio 16.2 RATIO (10-20); Calcium,Total 9.0 mg/dL (7.6-11.0); Carbon Dioxide 24.3 mmol/L (21.0-32.0); Chloride 105 mmol/L (98-108); Estimated Creatinine Clearance 55.34 ml/min (50-250); Glucose 126 mg/dL (70-99); Potassium 3.8 mmol/L (3.3-5.1)
[2025-08-18] MEDS: HYDROcodone Bitartrate/Apap 5/325 Tablet PO (01:56)
[2025-08-18 02:02] VITALS: BP 140/89; PULSE 80; RESP 16; TEMP 36.8; O2SAT 98
== END 2025-08-18 02:10 | disposition home or self-care (01) ==
PROVIDERS: Emergency Provider Emergency Medicine; PCP Family Medicine; Visit Provider Emergency Medicine
DX: H92.01 Otalgia, right ear (principal); I25.10 Atherosclerotic heart disease of native coronary artery without angina pectoris; R51.9 Headache, unspecified; E78.5 Hyperlipidemia, unspecified; Z87.891 Personal history of nicotine dependence; I10 Essential (primary) hypertension; Z95.1 Presence of aortocoronary bypass graft; M54.9 Dorsalgia, unspecified
CPT/HCPCS: 70450; 80048; 85025; 85652; 96374; 99283; A4216